=== PATIENT | male | born 1955 | race Asian ===

== ENCOUNTER → 2017-06-14 07:48 | Outpatient (CLI) | payer MEDICARE, SELFPAY ==
--- NOTE | 2017-06-15 10:46 | PFTCOMP ---
COMPLETE PULMONARY FUNCTION TEST INTERPRETATION Brief HPI: Patient is a 61 year old Black [male], currently under the care of Dr. Lucas, who presents to [facility] for complete pulmonary function tests secondary to diagnosis of high-risk med use. Respiratory therapist reports good effort and reproducible results. Interpretation: Forced expiration spirometry shows [no] large airways obstructive ventilatory defect with an FEV1 of 52 % predicted. There is no significant bronchodilator response by ATS criteria. Spirograms are of good quality and plateau [normally]. The respiratory flow volume loop shows [a normal pattern]. Lung volumes by body plethysmography show [a decreased] total lung capacity at 3.34 L, 61 % predicted. [All other lung volumes are reduced symmetrically.] Diffusion capacity by carbon monoxide is [decreased] at 60 % predicted. The airway resistance is [normal]. [Compared to previous pulmonary function tests from] 05/30/2016, [there has been] [a significant change in] TLC, RV and DLCO. Impression: Moderate restrictive ventilatory defect with a symmetric reduction diffusing capacity. There has been worsening in total lung capacity and DLCO compared to previous. Given cardiac history, evaluation for pleural effusion should be considered.
--- NOTE | 2017-06-15 10:49 | PFTCOMP_ITS ---
COMPLETE PULMONARY FUNCTION TEST INTERPRETATION Brief HPI: Patient is a 61 year old Black [male], currently under the care of Dr. Lucas , who presents to [facility] for complete pulmonary function tests secondary to diagnosis of high-risk med use. Respiratory therapist reports good effort and reproducible results. Interpretation: Forced expiration spirometry shows [no] large airways obstructive ventilatory defect with an FEV1 of 52 % predicted. There is no significant bronchodilator response by ATS criteria. Spirograms are of good quality and plateau [normally] . The respiratory flow volume loop shows [a normal pattern]. Lung volumes by body plethysmography show [a decreased] total lung capacity at 3.34 L, 61 % predicted. [All other lung volumes are reduced symmetrically.] Diffusion capacity by carbon monoxide is [decreased] at 60 % predicted. The airway resistance is [normal]. [Compared to previous pulmonary function tests from] 05/30/2016, [there has been ] [a significant change in] TLC, RV and DLCO. Impression: Moderate restrictive ventilatory defect with a symmetric reduction diffusing capacity. There has been worsening in total lung capacity and DLCO compared to previous. Given cardiac history, evaluation for pleural effusion should be considered.
== END ==
PROVIDERS: Family Provider Family Medicine; PCP Family Medicine; Visit Provider Internal Medicine Cardiovascular Disease
DX: Z79.899 Other long term (current) drug therapy (principal)
CPT/HCPCS: 94060; 94726; 94729

== ENCOUNTER → 2017-06-20 10:26 | Outpatient (CLI) | payer MEDICARE, SELFPAY ==
[2017-06-20 12:57] LABS: T4 Total, Thyroxin 13.2 ug/dL (4.5-12.1); Thyroid Stim Hormone (TSH) 0.52 uIU/mL (0.358-3.74)
== END ==
PROVIDERS: Family Provider Family Medicine; PCP Family Medicine; Visit Provider Internal Medicine Cardiovascular Disease
DX: Z79.899 Other long term (current) drug therapy (principal)
CPT/HCPCS: 36415; 84436; 84443

== ENCOUNTER → 2018-02-28 14:17 | Outpatient (CLI) | payer MEDICARE, SELFPAY ==
[2018-02-28 15:42] LABS: Absolute Lymphocyte Count 2.07 X10^3/ul (0.83-4.51); Absolute Neutrophil Count 3.7 X10^3/uL (2.0-7.7); Basophil# 0.04 X10^3/uL; Basophil% 0.6 % (0-1); Eosinophil# 0.31 X10^3/uL; Eosinophils% 4.7 % (0-5); Hematocrit 49.3 % (40-54); Hemoglobin 15.4 g/dl (13.0-16.5); Lymphocyte # 2.07 X10^3/ul (4.0); Lymphocyte % 31.3 % (19-41); Mean Corp Hgb Conc 31.2 g/gl (32-36); Mean Corpuscular Volume 79.9 fL (80-94); Mean Platelet Vol. 12.4 fl (6.2-12.0); Monocyte# 0.48 X10^3/uL; Monocyte% 7.3 % (0-10); Neutrophil # 3.69 X10^3/uL (2.7-7.7); Neutrophil % 55.8 % (47-70); Platelet Count 188 K/mm3 (150-450); RBC Distribution Width CV 15.6 % (11.6-14.6); RBC Distribution Width SD 45.6 fl (35.1-43.9); Red Blood Count 6.17 M/mm3 (4.6-6.2); White Blood Count 6.6 K/mm3 (4.4-11.0)
[2018-02-28 15:56] LABS: POSITIVE COUNT NO; POSITIVE DIFFERENTIAL NO; POSITIVE MORPHOLOGY NO
[2018-02-28 16:12] LABS: AST(SGOT) 42 U/L (15-37); Alanine Aminotransfer ALT/SGPT 63 U/L (16-61); Albumin, Serum 3.8 g/dL (3.2-5.0); Alkaline Phosphatase 67 U/L (45-117); Anion Gap 10 (5-15); BUN 33 mg/dL (7-18); BUN/Creat Ratio 17.3 RATIO (10-20); Chloride 102 mmol/L (98-107); Creatinine, Serum 1.91 mg/dL (0.70-1.30); EST Glomerular Filtration Rate 38 mL/min (>60); Est Glom Filt Rate - Afr Amer 46 mL/min (>60); Globulin 3.9 g/dL (2.2-4.2); Glucose 77 mg/dL (74-106); Potassium 4.2 mmol/L (3.5-5.1); Protein, Total 7.7 g/dL (6.4-8.2); Sodium Level 144 mmol/L (136-145); Thyroid Stim Hormone (TSH) 0.51 uIU/mL (0.358-3.74)
[2018-02-28 16:25] LABS: Hemoglobin A1c 6.5 % (4.2-6.3)
[2018-02-28 16:26] LABS: Microalbumin:Creatinine Ratio 754.5 mg/g CRE (<30 mg/g CRE)
== END ==
PROVIDERS: Family Provider Family Medicine; PCP Family Medicine; Visit Provider Family Medicine
DX: E11.51 Type 2 diabetes mellitus with diabetic peripheral angiopathy without gangrene (principal)
CPT/HCPCS: 36415; 80053; 82043; 82570; 83036; 84443; 85025

== ENCOUNTER → 2018-05-06 12:00 | Outpatient (CLI) | payer MEDICARE, SELFPAY ==
[2017-11-30 13:30] VITALS: BMI 45.8
--- NOTE | 2018-05-06 12:05 | RAD_ITS ---
STUDY: X-RAY CHEST REASON FOR EXAM: Male, 62 years old. Right lower lobe rales, flulike symptoms TECHNIQUE: PA and lateral views of the chest. COMPARISON: 05/30/2016 FINDINGS: Single-chamber cardiac conduction device is stable. Sternal wires and mediastinal surgical clips compatible with prior CABG. The lungs are clear and expanded. There is no demonstrated pleural abnormality. There is moderate cardiac enlargement. Normal mediastinum and delio. There is prominence of the pulmonary hilar arteries and peripheral pulmonary arteries, consistent with congestive heart failure (CHF). There is atherosclerotic calcification of the aortic arch with tortuosity. Normal visualized thoracic spine. Normal visualized ribs, clavicles, and shoulders. There is no demonstrated abnormality of the visualized soft tissue structures of the upper abdomen. RAD/Chest PA and Lateral IMPRESSION: 1. No airspace consolidation. 2. Cardiomegaly with chronic vascular congestion/CHF. Stable. Electronically Signed: Ziyad Calvo MD at 13:58 EST , Service support ,
== END ==
PROVIDERS: Family Provider Family Medicine; PCP Family Medicine; Referring Provider Family Medicine; Visit Provider Family Medicine
DX: J18.9 Pneumonia, unspecified organism (principal); I51.7 Cardiomegaly; I50.9 Heart failure, unspecified
CPT/HCPCS: 71046

== ENCOUNTER → 2018-05-08 09:39 | Outpatient (CLI) | payer MEDICARE, SELFPAY ==
[2017-11-30 13:30] VITALS: BMI 45.8
--- NOTE | 2018-05-08 09:43 | US_ITS ---
STUDY: SUPERFICIAL ULTRASOUND - RIGHT MID ANDERSON. REASON FOR EXAM: Male, 62 years old. Palpable abnormality most likely a hematoma. TECHNIQUE: A superficial ultrasound was performed with real-time and static rollins-scale imaging. COMPARISON: None. FINDINGS: The palpable abnormality corresponds to a 4.7 cm x 5.9 cm x 2.2 cm complex cystic structure in the mid anterior aspect of the tibia. This most likely represents a hematoma. US/Ext Non Vasc Limited/Soft Tiss IMPRESSION: The palpable abnormality corresponds to a 4.7 cm x 5.9 cm x 2.2 cm complex cystic abnormality most likely representing a hematoma. Electronically Signed: Frank Harrington MD at 13:47 EST Tel [phone], Service support ,
== END ==
PROVIDERS: Family Provider Family Medicine; PCP Family Medicine; Referring Provider Family Medicine; Visit Provider Family Medicine
DX: M79.89 Other specified soft tissue disorders (principal)
CPT/HCPCS: 76882

== ENCOUNTER → 2018-07-10 14:28 | Outpatient (CLI) | payer MEDICARE, SELFPAY ==
[2018-06-04 13:04] VITALS: BMI 44.6
--- NOTE | 2018-07-10 14:31 | RAD_ITS ---
STUDY: X-RAY CHEST REASON FOR EXAM: Male, 62 years old. Community-acquired pneumonia. TECHNIQUE: PA and lateral chest COMPARISON: 05/06/2018. Chest x-ray 05/30/2016, 05/12/2015. FINDINGS: Persistent cardiomegaly. Stable. Left pectoral AICD, median sternotomy and CABG. Hazy opacities in left lower lobe are likely secondary to a combination of cardiomegaly and normal variant pericardial fat pad and have been present since imaging of 2015. There is no defined acute pulmonary infiltrate. No acute osseous or upper abdominal process is evident. RAD/Chest PA and Lateral IMPRESSION: Similar features of the chest are seen as far back as at least May 2015. No acute infiltrate is suspected. If the patient is persistently symptomatic a follow-up CT chest would be appropriate. Electronically Signed: Edgar Dow MD at 18:43 EST Tel , Service support ,
[2018-07-10 15:45] LABS: Absolute Lymphocyte Count 1.39 X10^3/ul (0.83-4.51); Absolute Neutrophil Count 3.7 X10^3/uL (2.0-7.7); Basophil# 0.03 X10^3/uL; Basophil% 0.5 % (0-1); Eosinophil# 0.13 X10^3/uL; Eosinophils% 2.2 % (0-5); Hematocrit 48.7 % (40-54); Hemoglobin 14.7 g/dl (13.0-16.5); Lymphocyte # 1.39 X10^3/ul (4.0); Lymphocyte % 23.2 % (19-41); Mean Corp Hgb Conc 30.2 g/gl (32-36); Mean Corpuscular Hgb 24.6 pg (27.0-32.0); Mean Corpuscular Volume 81.4 fL (80-94); Mean Platelet Vol. 12.1 fl (6.2-12.0); Monocyte# 0.75 X10^3/uL; Monocyte% 12.5 % (0-10); Neutrophil # 3.68 X10^3/uL (2.7-7.7); Neutrophil % 61.4 % (47-70); Platelet Count 194 K/mm3 (150-450); RBC Distribution Width CV 15.2 % (11.6-14.6); RBC Distribution Width SD 45.2 fl (35.1-43.9); Red Blood Count 5.98 M/mm3 (4.6-6.2)
[2018-07-10 15:47] LABS: POSITIVE COUNT NO; POSITIVE DIFFERENTIAL NO; POSITIVE MORPHOLOGY NO
[2018-07-10 16:07] LABS: BNP,B-Type NATRIURETIC PEPTIDE 152.6 pg/mL (0-100)
[2018-07-10 16:14] LABS: AST(SGOT) 36 U/L (15-37); Alanine Aminotransfer ALT/SGPT 49 U/L (16-61); Albumin, Serum 3.8 g/dL (3.2-5.0); Alkaline Phosphatase 76 U/L (45-117); Anion Gap 8 (5-15); BUN 23 mg/dL (7-18); Calcium,Total 8.7 mg/dL (8.5-10.1); Chloride 98 mmol/L (98-107); Creatinine, Serum 1.53 mg/dL (0.70-1.30); EST Glomerular Filtration Rate 49 mL/min (>60); Est Glom Filt Rate - Afr Amer 60 mL/min (>60); Globulin 3.9 g/dL (2.2-4.2); Glucose 77 mg/dL (74-106); Potassium 3.5 mmol/L (3.5-5.1); Protein, Total 7.7 g/dL (6.4-8.2); Sodium Level 140 mmol/L (136-145)
[2018-07-13 20:06] LABS: Influenza A 1:16 (Neg:<1:8)
== END ==
PROVIDERS: Family Provider Family Medicine; PCP Family Medicine; Referring Provider Family Medicine; Visit Provider Family Medicine
DX: J11.00 Influenza due to unidentified influenza virus with unspecified type of pneumonia (principal); I10 Essential (primary) hypertension
CPT/HCPCS: 36415; 71046; 80053; 83880; 85025; 86141; 86710

== ENCOUNTER → 2018-07-19 13:45 | Outpatient (CLI) | payer MEDICARE, SELFPAY ==
[2018-06-04 13:04] VITALS: BMI 44.6
--- NOTE | 2018-07-19 13:51 | CT_ITS ---
STUDY: CT CHEST WITHOUT CONTRAST REASON FOR EXAM: Male, 62 years old. Persistent cough and rales for 4 weeks. RADIATION DOSAGE (If Supplied By Facility): CTDIvol = ( 20.70 ) mGy, DLP = ( 738.90 ) mGycm TECHNIQUE: Transaxial imaging was performed without the administration of intravenous contrast material. Individualized dose optimization techniques were used for this CT. COMPARISON: None. FINDINGS: There is diffuse prominence of the pulmonary vasculature. There are mild atelectatic changes in the lingula and left lower lobe. No focal infiltrate is seen. There may be trace of left pleural effusion. Sternal cerclage wires and vascular clips are present from a prior sternotomy and coronary artery bypass graft procedure (CABG). The heart is prominent in size. There are coronary calcifications. There is no evidence of pericardial effusion. There are few small normal size nodes in the anterior mediastinum and aortopulmonic window. Few small nodes are also seen in the right hilar region. There is no definite adenopathy. Normal unenhanced pulmonary arteries. There is atherosclerotic calcification of the aortic arch with tortuosity and elongation of the aortic arch and descending thoracic aorta. There are multi-level degenerative changes of the thoracic spine. There is no demonstrated abnormality of the visualized upper abdomen. CT/Chest without Contrast IMPRESSION: 1. Diffuse prominence of the pulmonary vasculature consistent with pulmonary venous congestion. 2. Mild atelectatic changes in the left lower lung. 3. No focal infiltrate is seen. 4. Trace of left pleural effusion. 5. Status post CABG. Electronically Signed: Donald Robles MD at 13:54 EDT Tel , Service support ,
== END ==
PROVIDERS: Family Provider Family Medicine; PCP Family Medicine; Referring Provider Family Medicine; Visit Provider Family Medicine
DX: R09.89 Other specified symptoms and signs involving the circulatory and respiratory systems (principal)
CPT/HCPCS: 71250

== ENCOUNTER → 2018-10-16 13:56 | Outpatient (CLI) | payer MEDICARE, SELFPAY ==
[2018-06-04 13:04] VITALS: BMI 44.6
[2018-10-16 15:54] LABS: PTHIN 170.9 pg/mL (18.4-80.1)
[2018-10-16 15:56] LABS: ALB/GLOB Ratio 1.2 RATIO (0.9-2.4); AST(SGOT) 34 U/L (15-37); Alanine Aminotransfer ALT/SGPT 42 U/L (16-61); Albumin, Serum 3.8 g/dL (3.2-5.0); Alkaline Phosphatase 71 U/L (45-117); Anion Gap 3 (5-15); BUN 36 mg/dL (7-18); BUN/Creat Ratio 23.4 RATIO (10-20); Calcium,Total 8.6 mg/dL (8.5-10.1); Chloride 102 mmol/L (98-107); Creatinine, Serum 1.54 mg/dL (0.70-1.30); EST Glomerular Filtration Rate 49 mL/min (>60); Est Glom Filt Rate - Afr Amer 59 mL/min (>60); Globulin 3.3 g/dL (2.2-4.2); Glucose 93 mg/dL (74-106); Magnesium 1.8 mg/dL (1.6-2.6); Protein, Total 7.1 g/dL (6.4-8.2); Sodium Level 140 mmol/L (136-145); Thyroid Stim Hormone (TSH) 0.15 uIU/mL (0.358-3.74)
[2018-10-16 16:09] LABS: Vitamin D,25 Hydroxy 12.9 ng/mL (29.95-100.01)
== END ==
PROVIDERS: Family Provider Family Medicine; PCP Family Medicine; Referring Provider Family Medicine; Visit Provider Family Medicine
DX: N18.3 Chronic kidney disease, stage 3 (moderate) (principal); E11.51 Type 2 diabetes mellitus with diabetic peripheral angiopathy without gangrene
CPT/HCPCS: 36415; 80053; 82306; 83735; 83970; 84443; 84550

== ENCOUNTER → 2019-01-22 14:17 | Outpatient (CLI) | payer MEDICARE, SELFPAY ==
[2019-01-22 12:59] VITALS: BMI 45.3
[2019-01-22 17:11] LABS: Absolute Lymphocyte Count 1.98 X10^3/uL (0.83-4.51); Absolute Neutrophil Count 4.2 X10^3/uL (2.0-7.7); Basophil# 0.06 X10^3/uL; Basophil% 0.8 % (0-1); Eosinophils% 2.8 % (0-5); Hematocrit 50.2 % (40-54); Hemoglobin 15.1 g/dL (13.0-16.5); Lymphocyte # 1.98 X10^3/ul (4.0); Lymphocyte % 27.6 % (19-41); Mean Corp Hgb Conc 30.1 g/dL (32-36); Mean Corpuscular Hgb 24.8 pg (27.0-32.0); Mean Corpuscular Volume 82.3 fL (80-94); Mean Platelet Vol. 11.6 fl (6.2-12.0); Monocyte# 0.67 X10^3/uL; Monocyte% 9.3 % (0-10); NRBC Flagged by Analyzer 0 % (0-5); Neutrophil # 4.23 X10^3/uL (2.7-7.7); Neutrophil % 58.9 % (47-70); Platelet Count 196 K/mm3 (150-450); RBC Distribution Width CV 15.9 % (11.6-14.6); RBC Distribution Width SD 45.9 fl (35.1-43.9); White Blood Count 7.2 K/mm3 (4.4-11.0)
[2019-01-22 17:31] LABS: Hemoglobin A1c 7.6 % (4.2-6.3)
[2019-01-22 17:36] LABS: AST(SGOT) 59 U/L (15-37); Alanine Aminotransfer ALT/SGPT 70 U/L (16-61); Albumin, Serum 3.7 g/dL (3.2-5.0); Alkaline Phosphatase 67 U/L (45-117); Anion Gap 8 (5-15); BUN 36 mg/dL (7-18); BUN/Creat Ratio 22.8 RATIO (10-20); Chloride 100 mmol/L (98-107); Creatinine, Serum 1.58 mg/dL (0.70-1.30); EST Glomerular Filtration Rate 48 mL/min (>60); Est Glom Filt Rate - Afr Amer 57 mL/min (>60); Free T3 3.5 pg/mL (2.18-3.98); Globulin 3.8 g/dL (2.2-4.2); Glucose 128 mg/dL (74-106); Potassium 4.1 mmol/L (3.5-5.1); Protein, Total 7.5 g/dL (6.4-8.2); Sodium Level 142 mmol/L (136-145)
[2019-01-22 17:52] LABS: PTHIN 140.5 pg/mL (18.4-80.1)
[2019-01-22 18:06] LABS: T4 Free Direct 1.45 ng/dL (0.76-1.46); Thyroid Stim Hormone (TSH) 1.36 uIU/mL (0.358-3.74)
== END ==
PROVIDERS: Family Provider Family Medicine; PCP Family Medicine; Visit Provider Internal Medicine Cardiovascular Disease
DX: I10 Essential (primary) hypertension (principal); Z79.899 Other long term (current) drug therapy; I89.0 Lymphedema, not elsewhere classified; E11.51 Type 2 diabetes mellitus with diabetic peripheral angiopathy without gangrene; N25.81 Secondary hyperparathyroidism of renal origin; E55.9 Vitamin D deficiency, unspecified
CPT/HCPCS: 36415; 80053; 82306; 83036; 83970; 84439; 84443; 84481; 85025

== ENCOUNTER → 2019-05-12 17:58 | Outpatient (CLI) | payer MEDICARE, SELFPAY ==
[2019-01-22 12:59] VITALS: BMI 45.3
== END ==
PROVIDERS: Family Provider Family Medicine; PCP Family Medicine; Referring Provider Nurse Practitioner Adult Health; Visit Provider Nurse Practitioner Adult Health
DX: L03.90 Cellulitis, unspecified (principal)
CPT/HCPCS: 87070; 87077; 87186; 87205

== ENCOUNTER 2019-06-03 13:00 | Outpatient (RCR) | payer MEDICARE, SELFPAY ==
[2019-01-22 12:59] VITALS: BMI 45.3
[2019-05-27 14:43] VITALS: BP 128/77; PULSE 83; RESP 16; TEMP 36.3; BMI 44.4
--- NOTE | 2019-05-28 09:10 | HP.PCM_ITS ---
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 Current Visit: Yes Code(s): B74.9 - Filariasis, unspecified (2) Bilateral lower extremity edema Status: Chronic Current Visit: Yes Code(s): R60.0 - Localized edema (3) PVD (peripheral vascular disease) Status: Chronic Current Visit: Yes Code(s): I73.9 - Peripheral vascular disease, unspecified (4) Morbid obesity with BMI of 40.0-44.9, adult Status: Chronic Current Visit: Yes Code(s): E66.01 - Morbid (severe) obesity due to excess calories; Z68.41 - Body mass index (BMI) 40.0-44.9, adult (5) Chronic systolic congestive heart failure Status: Chronic Current Visit: No Code(s): I50.22 - Chronic systolic (congestive) heart failure (6) Pulmonary hypertension Status: Chronic Current Visit: No Code(s): I27.20 - Pulmonary hypertension, unspecified (7) Essential hypertension Status: Chronic Current Visit: No Code(s): I10 - Essential (primary) hypertension (8) Ischemic cardiomyopathy Status: Chronic Current Visit: No Code(s): I25.5 - Ischemic cardiomyopathy (9) Pure hypercholesterolemia Status: Chronic Current Visit: No Code(s): E78.00 - Pure hypercholesterolemia, unspecified History of Present Illness Date of Service: 05/27/19 Chief Complaint: swelling and wounds of both legs History of Wound: Patient is a pleasant 63-year-old male who goes by the name of Marilynn, who presents today with complaint of swelling to bilateral lower extremities, and wounds to bilateral shins. There is a mild language barrier, and no translation is available at today's appointment given a miscommunication about the patient's appointment date and time. The patient reports that he has had swelling in his bilateral lower extremities for many years, as well as cobblestone?appearing lymphedema. He is [place] from [facility], and reports moving to the around 1988. He reports his swelling has gotten worse in the last few weeks. He has had weeping from his left lower extremity. He also developed a scab on his right anterior lower leg. He has been using triple antibiotic ointment to both legs, and wrapping with Kerlix. He has not been using any compression. Patient has a PMH significant for type 2 diabetes mellitus (A1c in 01/2019 was 7.6%), morbid obesity, CHF, pulmonary hypertension, SD, ischemic cardiomyopathy, and hyperlipidemia. He is currently managed by Dr. Sandoval at [facility] as his PCP. He is ambulatory with a cane. He does report living with family at home, who can aid in his care as needed. 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 (Chronic) Bilateral lower extremity edema (Chronic) PVD (peripheral vascular disease) (Chronic) Essential hypertension (Chronic) Pure hypercholesterolemia (Chronic) Atherosclerosis of coronary artery bypass graft without angina pectoris (Chronic) CABG x6 ; Internal Mammary to Anterior Descending, SVG to diag branch of the Anterior descending,SVG to the lateral & posteriorlateral CX, SVG to Posterior Descending and continuation branches of the RCA 02/27/03 Chronic systolic congestive heart failure (Chronic) Ischemic cardiomyopathy (Chronic) Pulmonary hypertension (Chronic) Presence of cardiac defibrillator (Chronic ~08/2004) Surgical History: coronary bypass surgery Allergies/Adverse Reactions: Allergies No Known Allergies Allergy (Verified 01/22/19 13:00) Home Medications: Ambulatory Orders Medication Instructions Recorded Aspirin [Aspirin, Baby] 81 mg PO DAILY@0800 03/10/14 allopurinol 300 mg tablet 300 mg PO QDAY 05/22/17 colchicine 0.6 mg capsule 0.6 mg PO QDAY cap 05/22/17 metformin 500 mg tablet 1,000 mg PO BIDCM tab 05/22/17 acetaminophen 500 mg tablet 500 mg PO BID tab 01/22/19 glimepiride 2 mg tablet 1 mg PO QAM tab 01/22/19 tiotropium 2.5 mcg-olodaterol 2.5 2 puff INHALATION DAILY 01/22/19 mcg/actuation mist for inhalation hydrochlorothiazide 25 mg tablet 25 mg PO DAILY #90 tab 03/13/19 potassium chloride 20 mEq 20 meq PO BID #180 tab 03/13/19 tablet,extended release(part/cryst) simvastatin 20 mg tablet 20 mg PO QHS #90 tab 03/13/19 amiodarone 200 mg tablet 100 mg PO QDAY #45 tab 03/14/19 amlodipine 2.5 mg tablet 2.5 mg PO DAILY #90 tab 03/14/19 furosemide 40 mg tablet 40 mg PO BID #180 tab 03/14/19 isosorbide mononitrate 30 mg 30 mg PO QAM #90 tab 03/14/19 tablet,extended release 24 hr lisinopril 20 mg tablet 20 mg PO BID #180 tab 03/14/19 metoprolol tartrate 100 mg tablet 100 mg PO BID #180 tab 03/14/19 - Family History Maternal Family History: Family History (Last Reviewed 01/22/19 @ 13:03 by Rebecca Juan) Mother Hypertension Sister Hypertension No pertinent history Smoking Status: Former smoker Review of Systems Constitutional: Denies: Anorexia, Chills, Fever, Night Sweats Eyes: Denies: Pain, Vision Change HEENT: Denies: Difficulty Hearing, Difficulty Swallowing Cardiovascular: Reports: Edema. Denies: Chest Pain Respiratory: Denies: Cough, Shortness of Breath, Wheezing Gastrointestinal: Denies: Abdominal Pain, Constipation, Diarrhea, Nausea, Vomiting Genitourinary: Denies: Dysuria, Hematuria Musculoskeletal: Reports: Leg Pain - bilaterally tender to palpation Skin: Reports: Skin Changes - Increase in swelling in bilateral lower extremities, weeping edema from left lower extremity Neurological: Denies: Double vision, Slurred speech Endocrine: Denies: Heat/ Cold Intolerance, Polydipsia, Polyuria Hematologic/ Lymphatic: Denies: Easy Bruising, Easy Bleeding - Physical Exam Vital Signs Temp Pulse Resp BP 97.3 F L 83 16 128/77 H 05/27/19 14:43 05/27/19 14:43 05/27/19 14:43 05/27/19 14:43 General: Alert, Oriented x3, Cooperative, No apparent distress HEENT: Atraumatic, EOMI, Normocephalic Oral: Moist Mucosa Neck: Supple, No JVD, Trachea Midline Lungs: Clear to auscultation, Normal air movement, No rhonchi, No wheeze, No rales Cardiovascular: Regular rate, Regular Rhythm Abdomen: Bowel Sounds Present, Soft, Non Tender, Obese Extremities: No clubbing, No cyanosis, Capillary Refill Less than 3 Seconds, Diminished Peripheral Pulses, Edema - Nonpitting, bilateral lower extremity l ymphedema with cobblestone?appearance., Tenderness - Bilateral lower extremities tender to palpation Skin: - - Large amount of dry, scaly devitalized tissue removed from right anterior lower extremity; no open wound or ulceration beneath. Left anterior lower extremity appears macerated, but no open wounds or ulcerations present. No active weeping from either lower extremity. No increased warmth, foul odor, or purulent drainage from either lower extremity. Wound Measurements and Assessment WC - Nurse 1 - General Ulcer Measurement Start: 05/27/19 14:32 Freq: Status: Active Protocol: Activity Type Activity Date Activity User E-Sign Co-Sign Detail Recorded Client Recorded Date Recorded By Document 05/27/19 14:43 [id number] 05/27/19 15:02 CRISTOBAL 05/27/19 14:43 Wound Center Nurse 1 [Ulcer Assessment] 2-left monaco -Combined with other wound No -Current Size (cm) - Length 3.3 -Current Size (cm) - Width 5.0 -Current Size (cm) - Depth 0.1 -Total Square Cm 16.50 -Photo Taken Yes -Epithelialization Small 1-33% -Tunneling No -Undermining/Tunneling No -Circular Undermining No -Classification - Masterson Grading ( Grade 1 Diabetic Ulcer) -Exudate Amt Small -Exudate Type Serosanguineous -Wound Margin Flat & Intact -Granulation Amt None Present (0 %) -Slough/Fibrin Yes -Necrosis Amt Large (67-100%) -Necrotic Tissue Type Adherent Slough -Structure Exposed N/A -Texture (Nicolle-wound Skin Appearance) Assessed, Localized Edema -Moisture (Nicolle-wound Skin Appearance Assessed,Dry/ ) Scaly -Color (Nciolle-wound Skin Appearance) Assessed, Hemosiderin Staining -Temperature (Nicolle-wound Skin No Abnormality Appearance) (Pt Warm) -Tenderness on Palpation (Nicolle-wound No Skin Appearance) -Ulcer Cleansing Rinsed/ Irrigated with Saline -Foul Odor after Cleansing No -Anesthetic Used 4% Lidocaine Solution 1-right monaco -Combined with other wound No -Current Size (cm) - Length 4 -Current Size (cm) - Width 4 -Current Size (cm) - Depth 0.1 -Total Square Cm 16 -Photo Taken Yes -Epithelialization Medium 34-66% -Tunneling No -Undermining/Tunneling No -Circular Undermining No -Classification - Masterson Grading ( Grade 1 Diabetic Ulcer) -Exudate Amt Small -Exudate Type Serosanguineous -Wound Margin Flat & Intact -Granulation Amt None Present (0 %) -Slough/Fibrin Yes -Necrosis Amt Large (67-100%) -Necrotic Tissue Type Adherent Slough -Structure Exposed N/A -Texture (Nicolle-wound Skin Appearance) Assessed, Localized Edema -Moisture (Nicolle-wound Skin Appearance Assessed,Dry/ ) Scaly -Color (Nicolle-wound Skin Appearance) Assessed, Hemosiderin Staining -Temperature (Nicolle-wound Skin No Abnormality Appearance) (Pt Warm) -Tenderness on Palpation (Nicolle-wound No Skin Appearance) -Ulcer Cleansing Rinsed/ Irrigated with Saline -Foul Odor after Cleansing No -Anesthetic Used 4% Lidocaine Solution [Edema Assessment] -Lower Limb Edema Present Yes -Right Calf (cm) 48 -Right Ankle (cm) 33.2 -Left Calf (cm) 49.2 -Left Ankle (cm) 35.0 WC - Nurse 2 - General Ulcer CM Notes Start: 05/27/19 14:32 Freq: Status: Active Protocol: Activity Type Activity Date Activity User E-Sign Co-Sign Detail Recorded Client Recorded Date Recorded By Document 05/27/19 15:39 DV [id number] 05/27/19 15:47 DV 05/27/19 15:39 Wound Center Nurse 2 [Procedure/Treatment] 2-left monaco -Time 15:44 -Correct Patient Yes -Correct Side, Site, Position Yes -Correct Procedure No -Procedure Performed No -Wound/Ulcer Outcome Not Healed 1-right monaco -Time 15:44 -Correct Patient Yes -Correct Side, Site, Position Yes -Correct Procedure No -Procedure Performed No -Wound/Ulcer Outcome Not Healed [See Physician Procedure note for Specifics] Pain Scale: 0-10 Numeric [Pain] -Is Patient Pain Free? Yes Musculoskeletal: Tenderness - Tenderness to palpation of bilateral lower extremities. Neurological: - - Ambulates with cane Psych/Mental Status: Normal Affect, Appropriate Debridement Note Post-Debridement Measurements/Treatment - Nurse 2 - General Ulcer CM Notes Start: 05/27/19 14:32 Freq: Status: Active Protocol: Activity Type Activity Date Activity User E-Sign Co-Sign Detail Recorded Client Recorded Date Recorded By Document 05/27/19 15:39 DV [id number] 05/27/19 15:47 DV 05/27/19 15:39 Wound Center Nurse 2 2-left monaco -Time 15:44 -Correct Patient Yes -Correct Side, Site, Position Yes -Correct Procedure No -Procedure Performed No -Wound/Ulcer Outcome Not Healed 1-right monaco -Time 15:44 -Correct Patient Yes -Correct Side, Site, Position Yes -Correct Procedure No -Procedure Performed No -Wound/Ulcer Outcome Not Healed Pain Scale: 0-10 Numeric Is Patient Pain Free? 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 Bilateral lower extremity edema, chronic. PVD, chronic. Morbid obesity, chronic. Differential diagnoses include: Elephantiasis nostras verrucosa Plan: No debridement performed today in clinic, due to lack of open wounds or ulcerations. Adaptic applied to right anterior lower extremity, where dry, scaly and devitalized tissue was gently removed. Aquacel extra applied to area of maceration on left anterior lower extremity. At home wound-care instructions: Patient instructed to change these dressings daily. May remove these dressings to shower, and replace with a clean dressing following shower, after patting skin thoroughly dry. Compression: Will await results of vascular studies to determine appropriate compression. Off-loading: Keep feet elevated as much as possible, at or above waist level. Avoid prolonged standing or dangling of legs. Diet: Patient encouraged to increase protein while taking caution to avoid high carbohydrate and/or sugar intake. Labs/cultures/imaging: Routine baseline labwork ordered. Vascular studies ordered. Follow-up: Return to clinic in 1 week for re-evaluation. We will arrange for translation services to be available at next visit to aid in patient-provider communication. Return sooner or report to the emergency room should symptoms worsen, or new symptoms arise. Note: [employer] speech recognition vice president quality assurance software was used to create portions of this document. Sound-alike and misspelled words, as well as other vice president quality assurance errors may be contained in the documentation. Code Visit Office Visits / Consults: [id number] New
--- NOTE | 2019-06-03 13:13 | VDLE_ITS ---
Reason For Study: PVD RIGHT LEFT CFV is compressible, spontaneous, phasic, CFV is compressible, spontaneous, phasic, competent and demonstrates normal competent, and demonstrates normal augmentation. augmentation. FV is compressible, spontaneous, phasic, FV is compressible, spontaneous, phasic, competent and demonstrates normal competent and demonstrates normal augmentation. augmentation. POP V is compressible, spontaneous, phasic, POP V is compressible, spontaneous, phasic, competent and demonstrates normal competent and demonstrates normal augmentation. augmentation. T/P Trunk is compressible. T/P Trunk is compressible. PTV is compressible. PTV is compressible. RT PerV is compressible. LT PerV is compressible. GSV previously harvested. SFJ is competent and measures 0.93 x 1.02 cm. SFJ is competent and measures 0.74 x 0.80 cm. GSV proximal thigh measures 0.37 x 0.38 cm. ASV mid calf is INCOMPETENT for greater than GSV above knee is competent. 0.5 seconds and measures 0.29 x 0.30 cm. GSV at knee measures 0.29 x 0.29 cm. SSV at junction is competent and measures GSV below knee is INCOMPETENT for greater 0.46 x 0.46 cm. than 0.5 seconds. Procedure SSV at junction is competent and measures Exam performed in department. 0.29 x 0.27 cm. A preliminary report was called and/or faxed to . Interpretation Summary Deep veins of the lower extremities are bilaterally patent and compressible segmentally. There is no evidence of deep vein thrombosis on either side. Valvular competence appears intact within the proximal deep venous systems bilaterally. The right great saphenous vein is absent, having been previously harvested. The left great saphenous vein appears patent and compressible segmentally. Sapheno-femoral junctions are bilaterally competent . The left great saphenous vein appears competent above the knee. The left great saphenous vein appears incompetent below the knee. Small saphenous veins are patent and competent bilaterally. The right accessory saphenous vein in the right mid-calf is incompetent. Ordering Physician: Renee Andrew Referring Physician: Manuel Sandoval MD Performed By: Orquidea Johnston RVT
--- NOTE | 2019-06-03 13:14 | ART_ITS ---
Reason For Study: PVD Procedure A bilateral lower extremity continuous wave Doppler with analog waveform analysis,segmental pressures,and ankle brachial indexes without exercise. Left Segmental Pressures Left brachial= 125mmHg. Left posterior tibial artery = 139mmHg. Left dorsalis pedis artery = 120mmHg. Left digit = 102 mmHg. The left dorsalis pedis waveforms are triphasic. The left posterior tibial artery waveforms are triphasic. Right Segmental Pressures Right brachial= 128mmHg. Right posterior tibial artery = 141mmHg. Right dorsalis pedis artery = 139mmHg. Right digit = 100 mmHg. The right dorsalis pedis waveforms are triphasic. The right posterior tibial artery waveforms are triphasic. Indices The right ankle brachial index by the dorsalis pedis is 1.09. The right ankle brachial index by the posterior tibial artery is 1.10. The right digital-brachial index is 0.78. The left ankle brachial index by the dorsalis pedis is 0.94. The left ankle brachial index by the posterior tibial artery is 1.09. The left digital-brachial index is 0.80. Interpretation Summary Triphasic Doppler waveforms are noted at ankle level bilaterally. Pulse-volume recordings appear satisfactory at all levels bilaterally. Resting ankle-brachial indices are normal bilaterally. Digital-brachial indices are normal bilaterally. There is no evidence of significant arterial occlusive disease in the lower extremities bilaterally. Ordering Physician: Renee Andrew Referring Physician: Manuel Sandoval MD Performed By: Orquidea Johnston RVT
[2019-06-03 14:01] LABS: Erythrocyte Sedimentation Rate 27 mm/hr (0-20)
[2019-06-03 14:04] LABS: Hematocrit 47.2 % (40-54); Hemoglobin 13.7 g/dL (13.0-16.5); Mean Corpuscular Hgb 23.7 pg (27.0-32.0); Mean Corpuscular Volume 81.8 fL (80-94); Mean Platelet Vol. 12.1 fl (6.2-12.0); Platelet Count 211 K/mm3 (150-450); RBC Distribution Width CV 15.7 % (11.6-14.6); RBC Distribution Width SD 46.1 fl (35.1-43.9); Red Blood Count 5.77 M/mm3 (4.6-6.2); White Blood Count 8.1 K/mm3 (4.4-11.0)
[2019-06-03 14:11] LABS: Hemoglobin A1c 6.9 % (4.2-6.3)
[2019-06-03 14:29] LABS: ALB/GLOB Ratio 0.9 RATIO (0.9-2.4); AST(SGOT) 51 U/L (15-37); Alanine Aminotransfer ALT/SGPT 56 U/L (16-61); Albumin, Serum 3.5 g/dL (3.2-5.0); Alkaline Phosphatase 64 U/L (45-117); Anion Gap 2 (5-15); BUN 30 mg/dL (7-18); BUN/Creat Ratio 14.3 RATIO (10-20); Calcium,Total 8.9 mg/dL (8.5-10.1); Chloride 103 mmol/L (98-107); EST Glomerular Filtration Rate 34 mL/min (>60); Est Glom Filt Rate - Afr Amer 41 mL/min (>60); Estimated Creatinine Clearance 26.98 ml/min; Globulin 3.8 g/dL (2.2-4.2); Glucose 106 mg/dL (74-106); Potassium 3.8 mmol/L (3.5-5.1); Prealbumin 30.2 mg/dL (20.0-40.0); Protein, Total 7.3 g/dL (6.4-8.2); Sodium Level 139 mmol/L (136-145)
[2019-06-03 15:08] VITALS: BP 120/66; PULSE 86; RESP 16; TEMP 36.3; BMI 44.4
--- NOTE | 2019-06-03 17:11 | PCM.WC.PN ---
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 Status: Suspected Current Visit: Yes Code(s): B74.9 - Filariasis, unspecified (3) Lymphedema Status: Chronic Current Visit: Yes Code(s): I89.0 - Lymphedema, not elsewhere classified (4) Bilateral lower extremity edema Status: Chronic Current Visit: Yes Code(s): R60.0 - Localized edema (5) PVD (peripheral vascular disease) Status: Chronic Current Visit: Yes Code(s): I73.9 - Peripheral vascular disease, unspecified (6) Morbid obesity with BMI of 40.0-44.9, adult Status: Chronic Current Visit: Yes Code(s): E66.01 - Morbid (severe) obesity due to excess calories; Z68.41 - Body mass index (BMI) 40.0-44.9, adult (7) Chronic systolic congestive heart failure Status: Chronic Current Visit: No Code(s): I50.22 - Chronic systolic (congestive) heart failure (8) Pulmonary hypertension Status: Chronic Current Visit: No Code(s): I27.20 - Pulmonary hypertension, unspecified (9) Essential hypertension Status: Chronic Current Visit: No Code(s): I10 - Essential (primary) hypertension (10) Ischemic cardiomyopathy Status: Chronic Current Visit: No Code(s): I25.5 - Ischemic cardiomyopathy (11) Pure hypercholesterolemia Status: Chronic Current Visit: No Code(s): E78.00 - Pure hypercholesterolemia, unspecified Type of Wound Date of Service: 06/03/19 Chief Complaint: swelling and wounds of both legs History of Wound: Patient is a pleasant 63-year-old male who goes by the name of Marilynn, who presents 05/27/2019 with complaint of swelling to bilateral lower extremities, and wounds to bilateral shins. There is a mild language barrier, and no translation is available at initial appointment given a miscommunication about the patient's appointment date and time. The patient reports that he has had swelling in his bilateral lower extremities for many years, as well as cobblestone?appearing lymphedema. He is originally from [facility], and reports moving to the about 25 years ago. He reports his swelling has gotten worse in the last few weeks. He has had weeping from his left lower extremity. He also developed a scab on his right anterior lower leg. He has been using triple antibiotic ointment to both legs, and wrapping with Kerlix. He has not been using any compression. Patient has a PMH significant for type 2 diabetes mellitus (A1c in 01/2019 was 7.6%), morbid obesity, CHF, pulmonary hypertension, [place], ischemic cardiomyopathy, and hyperlipidemia. He is currently managed by Dr. Sandoval at [facility] as his PCP. He is ambulatory with a cane. He does report living with family at home, who can aid in his care as needed. Progress of Wound: Interpretation services utilized at today's visit, and elements of HPI were confirmed. Patient continues to have no open wounds of bilateral lower extremities. Lymphedema is unchanged in bilateral lower extremities. Patient has been compliant with the use of Adaptic to right lower extremity, and Aquacel extra to left anterior lower extremity. Patient continues to report weeping of serous, nonpurulent drainage from anterior left lower extremity. This area appears mildly excoriated, but no open wound or ulceration is present. Venous Doppler study completed 06/03/2019: Right great saphenous vein is absent, having been previously harvested; left great saphenous vein incompetent below the knee; right accessory saphenous vein and right mid calf is incompetent; otherwise normal venous Doppler study, see full report for further details. Arterial studies completed 06/03/2019: No evidence of significant arterial occlusive disease in bilateral lower extremities, see full report for further details. - Physical Exam Vital Signs Temp Pulse Resp BP 97.3 F L 86 16 120/66 06/03/19 15:08 06/03/19 15:08 06/03/19 15:08 06/03/19 15:08 General: Alert, Oriented x3, Cooperative, No apparent distress HEENT: Atraumatic, Normocephalic Oral: Moist Mucosa Neck: Supple, No JVD Lungs: Normal air movement Cardiovascular: Regular rate Extremities: No clubbing, No cyanosis, Capillary Refill Less than 3 Seconds, Diminished Peripheral Pulses, Edema - Nonpitting, bilateral lower extremity lymphedema with cobblestone appearance, Tenderness - Bilateral lower extremities tender to palpation Skin: Excoriated - Right anterior lower extremity remains unchanged without open wound or ulceration, skin intact. Left anterior lower extremity appears mildly excoriated, but no open wounds or ulcerations present. No active weeping from either lower extremity. No increased warmth, foul odor, or purulent drainage from either lower extremity. Wound Measurements and Assessment WC - Nurse 1 - General Ulcer Measurement Start: 05/27/19 14:32 Freq: Status: Active Protocol: Activity Type Activity Date Activity User E-Sign Co-Sign Detail Recorded Client Recorded Date Recorded By Document 06/03/19 15:08 [facility] [id number] 06/03/19 15:15 [facility] 06/03/19 15:08 Wound Center Nurse 1 [Ulcer Assessment] 2-left monaco -Combined with other wound No -Current Size (cm) - Length 1 -Current Size (cm) - Width 4 -Current Size (cm) - Depth 0.1 -Total Square Cm 4 -Photo Taken No -Epithelialization Small 1-33% -Tunneling No -Undermining/Tunneling No -Circular Undermining No -Exudate Amt Small -Exudate Type Serous -Wound Margin Flat & Intact -Granulation Amt Medium (34-66%) -Granulation Quality [place] -Slough/Fibrin Yes -Necrosis Amt Medium (34-66%) -Necrotic Tissue Type Adherent Slough -Texture (Nicolle-wound Skin Appearance) Assessed, Scarring -Moisture (Nicolle-wound Skin Appearance Assessed,Dry/ ) Scaly -Color (Nicolle-wound Skin Appearance) Assessed, Hemosiderin Staining -Temperature (Nicolle-wound Skin No Abnormality Appearance) (Pt Warm) -Tenderness on Palpation (Nicolle-wound No Skin Appearance) -Ulcer Cleansing Rinsed/ Irrigated with Saline -Foul Odor after Cleansing No -Anesthetic Used 4% Lidocaine Solution 1-right monaco -Combined with other wound No -Current Size (cm) - Length 0.1 -Current Size (cm) - Width 0.1 -Current Size (cm) - Depth 0.1 -Total Square Cm 0.01 -Epithelialization Large 67-100% -Tunneling No -Undermining/Tunneling No -Circular Undermining No -Texture (Nicolle-wound Skin Appearance) Assessed, Scarring -Moisture (Nicolle-wound Skin Appearance Assessed,Dry/ ) Scaly -Color (Nicolle-wound Skin Appearance) Assessed, Hemosiderin Staining -Temperature (Nicolle-wound Skin No Abnormality Appearance) (Pt Warm) -Tenderness on Palpation (Nicolle-wound No Skin Appearance) [Edema Assessment] -Lower Limb Edema Present Yes -Right Calf (cm) 46 -Right Ankle (cm) 33.7 -Left Calf (cm) 48 -Left Ankle (cm) 33.7 WC - Nurse 2 - General Ulcer CM Notes Start: 05/27/19 14:32 Freq: Status: Active Protocol: Activity Type Activity Date Activity User E-Sign Co-Sign Detail Recorded Client Recorded Date Recorded By Document 06/03/19 17:00 DV [id number] 06/03/19 17:02 DV 06/03/19 17:00 Wound Center Nurse 2 [Procedure/Treatment] 2-left monaco -Time 17:01 -Correct Patient Yes -Correct Side, Site, Position Yes -Correct Procedure No -Procedure Performed No -Wound/Ulcer Outcome Not Healed 1-right monaco -Time 17:01 -Correct Patient Yes -Correct Side, Site, Position Yes -Correct Procedure No -Procedure Performed No -Post Debridement Size (cm) - Length 0 -Post Debridement Size (cm) - Width 0 -Post Debridement Size (cm) - Depth 0 -Total Square Cm 0 -Wound/Ulcer Outcome Healed- Epithelialized [See Physician Procedure note for Specifics] Pain Scale: 0-10 Numeric [Pain] -Is Patient Pain Free? Yes Musculoskeletal: Tenderness - Tenderness on palpation of bilateral lower extremities. Neurological: - - Ambulates with a cane Psych/Mental Status: Normal Affect, Appropriate Debridement Note Post-Debridement Measurements/Treatment WC - Nurse 2 - General Ulcer CM Notes Start: 05/27/19 14:32 Freq: Status: Active Protocol: Activity Type Activity Date Activity User E-Sign Co-Sign Detail Recorded Client Recorded Date Recorded By Document 05/27/19 15:39 DV [id number] 05/27/19 15:47 DV Document 06/03/19 17:00 DV [id number] 06/03/19 17:02 DV 05/27/19 06/03/19 15:39 17:00 Wound Center Nurse 2 2-left monaco -Time 15:44 17:01 -Correct Patient Yes Yes -Correct Side, Site, Position Yes Yes -Correct Procedure No No -Procedure Performed No No -Wound/Ulcer Outcome Not Healed Not Healed 1-right monaco -Time 15:44 17:01 -Correct Patient Yes Yes -Correct Side, Site, Position Yes Yes -Correct Procedure No No -Procedure Performed No No -Post Debridement Size (cm) - Length 0 -Post Debridement Size (cm) - Width 0 -Post Debridement Size (cm) - Depth 0 -Total Square Cm 0 -Wound/Ulcer Outcome Not Healed Healed- Epithelialized Pain Scale: 0-10 Numeric Is Patient Pain Free? Yes Yes Assessment/Plan Active Problems (Last Reviewed 01/22/19 @ 13:03 by Rebecca Juan) Morbid obesity with BMI of 40.0-44.9, adult (Chronic) Bilateral lower extremity edema (Chronic) PVD (peripheral vascular disease) (Chronic) Lymphedema (Chronic) Excoriation of left lower leg (Chronic) Assessment: Excoriation of LLE, chronic. Lymphatic filariasis, chronic. Lymphedema, chronic. Bilateral lower extremity edema, chronic. PVD, chronic. Morbid obesity, chronic. Differential diagnoses include: Elephantiasis nostras verrucosa Plan: No debridement performed today in clinic, due to lack of open wounds or ulcerations. Adaptic and Aquacel extra applied to area of excoriation on left anterior lower extremity. At home wound-care instructions: Patient instructed to change these dressings daily. May remove these dressings to shower, and replace with a clean dressing following shower, after patting skin thoroughly dry. Compression: Double tubigrips applied today in office. Off-loading: Keep feet elevated as much as possible, at or above waist level. Avoid prolonged standing or dangling of legs. Diet: Patient encouraged to increase protein while taking caution to avoid high carbohydrate and/or sugar intake. Labs/cultures/imaging: Routine baseline labwork reviewed: ESR 27, BUN 30, creatinine 2.10, A1c 6.9%, AST 51, otherwise unremarkable, see full report for additional details. Venous Doppler study completed 06/03/2019: Right great saphenous vein is absent, having been previously harvested; left great saphenous vein incompetent below the knee; right accessory saphenous vein and right mid calf is incompetent; otherwise normal venous Doppler study, see full report for further details. Arterial studies completed 06/03/2019: No evidence of significant arterial occlusive disease in bilateral lower extremities, see full report for further details. Follow-up: Referral made to lymphedema clinic for evaluation and treatment of chronic lymphedema of bilateral lower extremities, and suspected lymphatic filariasis. Return to clinic in 2 weeks for re-evaluation. We will again arrange for translation services to be available at next visit to aid in patient-provider communication. Return sooner or report to the emergency room should symptoms worsen, or new symptoms arise. Note: [employer] speech recognition seal extrusion operator software was used to create portions of this document. Sound-alike and misspelled words, as well as other seal extrusion operator errors may be contained in the documentation. Code Visit Office Visits / Consults: [id number] OV L3 Est
== END 2019-06-06 23:59 ==
LOC: WC 13:00
PROVIDERS: Family Provider Family Medicine; PCP Family Medicine; Referring Provider Nurse Practitioner Family; Visit Provider Nurse Practitioner Family
DX: E11.622 Type 2 diabetes mellitus with other skin ulcer (principal); E11.51 Type 2 diabetes mellitus with diabetic peripheral angiopathy without gangrene; S80.812A Abrasion, left lower leg, initial encounter; X58.XXXA Exposure to other specified factors, initial encounter; R52 Pain, unspecified; M79.89 Other specified soft tissue disorders; I25.5 Ischemic cardiomyopathy; I11.0 Hypertensive heart disease with heart failure; I50.22 Chronic systolic (congestive) heart failure; I27.20 Pulmonary hypertension, unspecified; E66.01 Morbid (severe) obesity due to excess calories; Z68.41 Body mass index [BMI] 40.0-44.9, adult; B74.9 Filariasis, unspecified; R60.0 Localized edema; I25.2 Old myocardial infarction; E78.5 Hyperlipidemia, unspecified; I25.10 Atherosclerotic heart disease of native coronary artery without angina pectoris; Z95.1 Presence of aortocoronary bypass graft; Z95.810 Presence of automatic (implantable) cardiac defibrillator; Z79.899 Other long term (current) drug therapy; Z79.84 Long term (current) use of oral hypoglycemic drugs; Z79.82 Long term (current) use of aspirin; Z87.891 Personal history of nicotine dependence
CPT/HCPCS: 36415; 80053; 83036; 84134; 85027; 85652; 93923; 93970; 99213; G0463

== ENCOUNTER 2019-06-16 09:44 | Outpatient (RCR) | payer MEDICARE, SELFPAY ==
--- NOTE | 2019-06-18 12:30 | HP.OTEVAL_ITS ---
Patient's Visit Information KAUR SANDOVAL is a 63 year old M, referred to Occupational Therapy by ELAYNE Crawford, with a diagnosis of BLE lymphedema. Date of Evaluation: 06/16/19 Occupational Therapist: MARIA LUISA Escalante/Jay, CHT - Subjective Subjective: This 63 year old male was seen for OT eval with dx of LE lymphedmea . pt was referred by wound center. pt states his legs started seeping for a few day prior to getting into the wound center- pt sleeps sitting in chair but has recliner but unable to sleep in a bed. pt lives with sister, brother in law, and mother. Pt states he had compression socks in the past but he is unable to get them on. PT has been seen by this therapist in 2017 with same dx. pt would like to know what more he can do for his legs to help with fluid. - Lymphedema (Circumferential Measure) Mid-foot: right 26cm left 25cm Ankle: 31cm left 32cm Lower calf: 45.5 left 47cm Largest calf: 51cm left 50cm Below knee: 42cm left 41 cm - Lower Limb Functional Index Lower Extremity Functional Score: 38 - Goals Demonstrate a 20% reduction in edema by d/c: Yes Demonstrate adequate knowledge of self-massage by 2nd week: Yes Demonstrate adequate knowledge skin care/prec by 2nd week: Yes Demonstrate adequate knowledge therapeutic exercises by d/c: Yes Select approp compression garment w/donning/care/wear by d/c: Yes Voice need to replace compression garment every 4-6mo by dc: Yes - Rehabilitation General Assessment: pt demo with edema in BLE with skin nodules, firm tissue and dry skin. Pt demo a decrease in knowlege of LE lymphedmea mtg. Pt demo need for skilled OT services 2-3 visits to provide ed. support to assist pt in LE lymphedema mtg. Therapist ed. pt on lymphedema skin care, need of supportive compression garment to assist in fluid circulation, theraputic ex and general lymphedema circulation. Pt demo understanding and after ed. on compression alternatives pt receptive to getting velcro closure compression devices. Pt was given information on circaide, Farrow and other compression alternatives. pt was going to have his sister assist him in purchessing. pt to retun to clinic to ensure proper fit and ed. pt on self manual lymph massage Rehabilitation Potential: Questionable - Anticipated Interventions Anticipated Interventions: Education re assistive Equipment, Education re Diagnosis, Manual Lymph Drainage, Education re Life-long lymphedema Management, Education re Skin Care and Precautions, Education re Self Massage Techniques, Education re Correct Donning Tech,Care&Wearing Sched Comp Garments, Caregiver Training, Home Program - Visit Plan TEXT: Thank you for the opportunity to evaluate your patient. For Medicare and Medicare HMO plans, please review the plan of care and approve it. It will need to be FAXED BACK to us at [phone] for Medicare purposes. Please let me know if there are questions or concerns regarding this plan of care. Physician Signature: __Date:
== END 2019-06-16 19:00 | disposition home or self-care (01) ==
LOC: OT 09:44
PROVIDERS: PCP Family Medicine; Referring Provider Nurse Practitioner Family; Visit Provider Nurse Practitioner Family
DX: B74.9 Filariasis, unspecified (principal); I73.9 Peripheral vascular disease, unspecified
CPT/HCPCS: 97166

== ENCOUNTER 2019-06-17 09:35 | Outpatient (RCR) | payer MEDICARE, SELFPAY ==
[2019-06-07 01:09] VITALS: BP 120/66; PULSE 86; RESP 16; TEMP 36.3
[2019-06-17 15:00] VITALS: BP 117/66; PULSE 75; RESP 16; TEMP 36.6; BMI 44.4
--- NOTE | 2019-06-17 17:18 | PN.PCM_ITS ---
(1) Excoriation of left lower leg Status: Chronic Current Visit: Yes Qualifiers: Encounter type: subsequent encounter Qualified Code(s): S80.812D - Abrasion, left lower leg, subsequent encounter Code(s): S80.812A - Abrasion, left lower leg, initial encounter (2) Lymphedema Status: Chronic Current Visit: Yes Code(s): I89.0 - Lymphedema, not elsewhere classified (3) Morbid obesity with BMI of 40.0-44.9, adult Status: Chronic Current Visit: No Code(s): E66.01 - Morbid (severe) obesity due to excess calories; Z68.41 - Body mass index (BMI) 40.0-44.9, adult (4) PVD (peripheral vascular disease) Status: Chronic Current Visit: Yes Code(s): I73.9 - Peripheral vascular disease, unspecified (5) 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 There is a mild language barrier, and no translation is available at initial appointment given a miscommunication about the patient's appointment date and time. The patient reports that he has had swelling in his bilateral lower extremities for many years, as well as cobblestone?appearing lymphedema. He is originally from [facility], and reports moving to the [place] about 25 years ago. He reports his swelling has gotten worse in the last few weeks. He has had weeping from his left lower extremity. He also developed a scab on his right anterior lower leg. He has been using triple antibiotic ointment to both legs, and wrapping with Kerlix. He has not been using any compression. Patient has a PMH significant for type 2 diabetes mellitus (A1c in 01/2019 was 7.6%), morbid obesity, CHF, pulmonary hypertension, [place], ischemic cardiomyopathy, and hyperlipidemia. He is currently managed by Dr. Sandoval at [facility] as his PCP. He is ambulatory with a cane. He does report living with family at home, who can aid in his care as needed. Progress of Wound: Attempted to utilize interpretation services at today's visit, but unable to due to system malfunction. Patient continues to have no open wounds of bilateral lower extremities. Lymphedema is unchanged in bilateral lower extremities. Patient has been compliant with Adaptic and Aquacel extra to area of excoriation on left anterior lower extremity. Patient continues to report weeping of serous, nonpurulent drainage from anterior left lower extremity. This area appears mildly excoriated, but no open wound or ulceration is present. Venous Doppler study completed 06/03/2019: Right great saphenous vein is absent, having been previously harvested; left great saphenous vein incompetent below the knee; right accessory saphenous vein and right mid calf is incompetent; otherwise normal venous Doppler study, see full report for further details. Arterial studies completed 06/03/2019: No evidence of significant arterial occlusive disease in bilateral lower extremities, see full report for further details. The patient denies any fever, chills, nausea, vomiting, or diarrhea. Denies any signs of infection, including increasing pain, redness, swelling, or foul-smelling/purulent drainage from affected area. Patient was seen by lymphedema clinic at [facility] yesterday, and was instructed to order compression wraps for legs. He states he has the money to do so, and plans to order these in the next 1 to 2 days. - Physical Exam Vital Signs Temp Pulse Resp BP 97.9 F 75 16 117/66 06/17/19 15:00 06/17/19 15:00 06/17/19 15:00 06/17/19 15:00 General: Alert, Cooperative, No apparent distress HEENT: Atraumatic, Normocephalic Oral: Moist Mucosa Neck: Supple, No JVD, Trachea Midline Lungs: Normal air movement Cardiovascular: Regular rate Abdomen: Obese Extremities: No clubbing, No cyanosis, Diminished Peripheral Pulses, Edema - Nonpitting, bilateral lower extremity lymphedema with cobblestone appearance, Tenderness - Bilateral lower extremities tender to palpation Skin: Excoriated - Right anterior lower extremity remains unchanged, without open wound or ulceration, skin intact. Left anterior lower extremity appears mildly excoriated, but no open wounds or ulcerations present. No active weeping from either lower extremity. No increased warmth, foul odor, or purulent drainage from either lower extremity. Wound Measurements and Assessment WC - Nurse 1 - General Ulcer Measurement Start: 06/17/19 15:00 Freq: Status: Active Protocol: Activity Type Activity Date Activity User E-Sign Co-Sign Detail Recorded Client Recorded Date Recorded By Document 06/17/19 15:00 [facility] [id number] 06/17/19 15:09 BM 06/17/19 15:00 Wound Center Nurse 1 [Ulcer Assessment] 2-left monaco -Combined with other wound No -Current Size (cm) - Length 1.5 -Current Size (cm) - Width 1.3 -Current Size (cm) - Depth 0.1 -Total Square Cm 1.95 -Epithelialization Large 67-100% -Tunneling No -Undermining/Tunneling No -Circular Undermining No -Exudate Amt Small -Exudate Type Serous -Slough/Fibrin Yes -Necrosis Amt Large (67-100%) -Necrotic Tissue Type Adherent Slough -Texture (Nicolle-wound Skin Appearance) Assessed, Scarring -Moisture (Nicolle-wound Skin Appearance Assessed, ) Maceration, Weeping,Dry/ Scaly -Color (Nicolle-wound Skin Appearance) Assessed, Hemosiderin Staining -Temperature (Nicolle-wound Skin No Abnormality Appearance) (Pt Warm) -Tenderness on Palpation (Nicolle-wound No Skin Appearance) -Ulcer Cleansing Rinsed/ Irrigated with Saline -Foul Odor after Cleansing No -Anesthetic Used 4% Lidocaine Solution [Edema Assessment] -Lower Limb Edema Present Yes -Right Calf (cm) 50.5 -Right Ankle (cm) 32 -Left Calf (cm) 49.5 -Left Ankle (cm) 32.5 WC - Nurse 2 - General Ulcer CM Notes Start: 06/17/19 15:00 Freq: Status: Active Protocol: Activity Type Activity Date Activity User E-Sign Co-Sign Detail Recorded Client Recorded Date Recorded By Document 06/17/19 15:41 DV [id number] 06/17/19 15:43 DV 06/17/19 15:41 Wound Center Nurse 2 [Procedure/Treatment] 2-left monaco -Time 15:41 -Correct Patient Yes -Correct Side, Site, Position Yes -Correct Procedure No -Procedure Performed No -Post Debridement Size (cm) - Length 0 -Post Debridement Size (cm) - Width 0 -Post Debridement Size (cm) - Depth 0 -Total Square Cm 0 -Wound/Ulcer Outcome Healed- Epithelialized [See Physician Procedure note for Specifics] Pain Scale: 0-10 Numeric [Pain] -Is Patient Pain Free? Yes Musculoskeletal: Tenderness - Tenderness on palpation of bilateral lower extremities Neurological: - - Ambulates with a cane Psych/Mental Status: Normal Affect, Appropriate Debridement Note Post-Debridement Measurements/Treatment WC - Nurse 2 - General Ulcer CM Notes Start: 06/17/19 15:00 Freq: Status: Active Protocol: Activity Type Activity Date Activity User E-Sign Co-Sign Detail Recorded Client Recorded Date Recorded By Document 06/17/19 15:41 DV [id number] 06/17/19 15:43 DV 06/17/19 15:41 Wound Center Nurse 2 2-left monaco -Time 15:41 -Correct Patient Yes -Correct Side, Site, Position Yes -Correct Procedure No -Procedure Performed No -Post Debridement Size (cm) - Length 0 -Post Debridement Size (cm) - Width 0 -Post Debridement Size (cm) - Depth 0 -Total Square Cm 0 -Wound/Ulcer Outcome Healed- Epithelialized Pain Scale: 0-10 Numeric Is Patient Pain Free? Yes Assessment/Plan Active Problems (Last Reviewed 01/22/19 @ 13:03 by Rebecca Juan) PVD (peripheral vascular disease) (Chronic) Lymphedema (Chronic) Excoriation of left lower leg (Chronic) Assessment: Excoriation of LLE, chronic. Lymphatic filariasis, chronic, suspected. Lymphedema, chronic. Bilateral lower extremity edema, chronic. PVD, chronic. Morbid obesity, chronic. Differential diagnoses include: Elephantiasis nostras verrucosa Plan: No debridement performed today in clinic, due to lack of open wounds or ulcerations. Patient will be discharged to lymphedema clinic at [facility]. He was instructed to order compression leg wraps as instructed by lymphedema clinic, and is to follow-up as directed at [facility]. Continue to keep feet elevated as much as possible, at or above waist level. Avoid prolonged standing or dangling of legs. Venous Doppler study completed 06/03/2019: Right great saphenous vein is absent, having been previously harvested; left great saphenous vein incompetent below the knee; right accessory saphenous vein and right mid calf is incompetent; otherwise normal venous Doppler study, see full report for further details. Arterial studies completed 06/03/2019: No evidence of significant arterial occlusive disease in bilateral lower extremities, see full report for further details. Follow-up: Follow-up with the lymphedema clinic at [facility] as directed. Follow-up with PCP as scheduled. Return to [facility] on an as-needed basis for any new wounds. Note: [employer] speech recognition backer up software was used to create portions of this document. Sound-alike and misspelled words, as well as other backer up errors may be contained in the documentation. Code Visit Office Visits / Consults: [id number] OV L3 Est
== END 2019-07-05 23:59 ==
LOC: WC 09:35
PROVIDERS: Family Provider Family Medicine; PCP Family Medicine; Referring Provider Nurse Practitioner Family; Visit Provider Nurse Practitioner Family
DX: E11.51 Type 2 diabetes mellitus with diabetic peripheral angiopathy without gangrene (principal); E66.01 Morbid (severe) obesity due to excess calories; Z68.41 Body mass index [BMI] 40.0-44.9, adult; I89.0 Lymphedema, not elsewhere classified; I50.9 Heart failure, unspecified; I25.5 Ischemic cardiomyopathy; I27.20 Pulmonary hypertension, unspecified; E78.5 Hyperlipidemia, unspecified
CPT/HCPCS: 99213; G0463

== ENCOUNTER 2019-06-26 16:53 | Inpatient (IN) | payer MEDICARE, SELFPAY ==
[2019-06-26] VITALS (14 sets, daily range): BP systolic 104–142; BP diastolic 57–85; PULSE 101–116; RESP 19–28; TEMP 37.4–39.2; O2SAT 87–99; BMI 39.8; BMI 43.5
--- NOTE | 2019-06-26 16:54 | EKG12_ITS ---
Test Reason : Blood Pressure : / mmHG Vent. Rate : 106 BPM Atrial Rate : 106 BPM P-R Int : 226 ms QRS Dur : 114 ms QT Int : 302 ms P-R-T Axes : 054 -23 133 degrees QTc Int : 401 ms Sinus tachycardia with 1st degree A-V block Incomplete left bundle branch block Left ventricular hypertrophy with repolarization abnormality Abnormal ECG Confirmed by JOSE ANTONIO NAYAK, LAURA ([id number]), editor newspaper JAY GE ([id number]) on 06/30/2019 2:20:30 PM Referred By: ARJUN Confirmed By:GRICEL BRADY MD
--- NOTE | 2019-06-26 16:59 | ED.DCSUM_ITS ---
History of Present Illness Chief Complaint: Cough Informant: Patient - and EMS and PCP office staff Onset: Yesterday Activity at onset: - - grad onset Timing: Continuous Current Severity: Moderate Maximum Severity: Severe Worsened by: Coughing, Exertion Relieved by: Oxygen, Rest Associated Symptoms: Cough, Fever - subjective, Green sputum, Rhinorrhea, Yellow sputum. Negative for: Bloody Sputum, Sore throat Chest Pain: None Narrative: Patient was seen in the office prior to being sent here by EMS, he tested positive for influenza A and had pulse ox in the 70s on room air. They put him on a 4 L nasal cannula and he is 93%. His blood pressure was good and he was mildly tachycardic at the office. He does not have a known history of COPD or other lung disease except for pulmonary hypertension. He has an AICD due to some type of unknown dysrhythmia according to the office, and a cardiomyopathy with an ejection fraction over 50%. He is a renal patient but not on dialysis. He is not on home oxygen. - Past Medical History (1) CAD (coronary artery disease) Status: Chronic (2) Old myocardial infarction Status: Chronic (3) Bilateral lower extremity edema Status: Chronic (4) Chronic systolic congestive heart failure Status: Chronic (5) Essential hypertension Status: Chronic (6) Ischemic cardiomyopathy Status: Chronic (7) Morbid obesity with BMI of 40.0-44.9, adult Status: Chronic (8) PVD (peripheral vascular disease) Status: Chronic (9) Pulmonary hypertension Status: Chronic (10) Pure hypercholesterolemia Status: Chronic (11) 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 Status: Suspected (12) Chronic kidney disease (CKD) Status: Chronic (13) Type 2 diabetes mellitus Status: Chronic Past Medical History - Allergies and Home Meds Allergies/Adverse Reactions: Allergies No Known Allergies Allergy (Verified 06/26/19 17:04) Primary Care Physician: Manuel Sandoval MD [Primary Care Provider] - Surgical History: coronary bypass surgery, - - AICD Smoking Status: Former smoker - Family History Maternal Family History: Family History (Last Reviewed 01/22/19 @ 13:03 by Rebecca Juan) Mother Hypertension Sister Hypertension Family History: Reports: No pertinent history Review of Systems General: Reports: Fever, Malaise, Subjective. Denies: Sweats Eyes: Denies: Visual changes - bilaterally, Diplopia ENT: Denies: Rhinorrhea, Sore throat Cardiovascular: Denies: Chest pain, Palpitations Respiratory: Reports: Dyspnea, Cough, Sputum, - - no hemoptysis. Denies: Dyspnea on exertion Gastrointestinal: Denies: Abdominal pain, Nausea, Vomiting, Diarrhea, Melena, Hematochezia Genitourinary: Denies: Dysuria, Hematuria, Frequency Musculoskeletal: Reports: Myalgias, Swelling - BLE, chronic. Denies: Neck pain, Back pain, Extremity Pain Skin: Denies: Rash, Wounds Neurological: Denies: Headache, Weakness, Numbness Physical Exam Inital Vital Signs reviewed: Yes General: Well nourished, Well developed, Obese, No Acute Distress Head: Normocephalic, Atraumatic Eyes: Perrl, EOMI ENT: Moist mucous membranes, No rhinorrhea, - - POP clear without asymmetry, exudates. no trismus. Neck: Supple, Nontender, No lymphadenopathy Cardiovascular: Regular rate, Regular rhythm, No murmurs, Tachycardia Respiratory: No distress, Chest nontender, Rales - left base, Wheezing - diffusely throughout expiration Abdomen: Soft, Nontender, Nondistended, Normal bowel sounds, Ventral hernia - self-reduces Back: Nontender, Normal Inspection Extremities: Nontender, Edema - 4+ BLE, symmetric, w/ chronic stasis changes. Negative for: Calf Tenderness Skin: Normal color, No rash Neurological: Alert, Oriented x3, Cranial nerves II-XII grossly intact, Normal Strength, Normal Sensation Psychological: Normal affect, Normal Mood Diagnostic/Tx/Re-eval Impressions Chest X-Ray 06/26/19 17:05 IMPRESSION: No acute pulmonary findings. Electronically Signed: Jose Elias Cm MD at 17:25 EST Tel , Service support , Chest CT 06/26/19 19:54 IMPRESSION: Bibasilar atelectasis. No acute alveolar disease. No evidence of acute mediastinal pathology. Electronically Signed: Jose Elias Cm MD at 20:53 EST Tel , Service support , 06/26/19 17:05 Chest 1 View (Portable) [RAD] Stat 06/26/19 19:54 CT Chest [Chest without Contrast] [CT] Stat Laboratory Results 06/26/19 06/26/19 06/26/19 17:21 17:21 17:21 WBC 7.5 RBC 6.01 Hgb 14.6 Hct 48.4 MCV 80.5 MCH 24.3 L MCHC 30.2 L RDW Std Deviation 44.5 H RDW Coeff of Aubrey 17.0 H Plt Count 147 L MPV 10.9 Immature Gran % (Auto) 0.900 Neut % (Auto) 79.7 H Lymph % (Auto) 5.6 L [place] % (Auto) 13.4 H Eos % (Auto) 0.1 Baso % (Auto) 0.3 Absolute Neuts (auto) 6.0 Absolute Lymphs (auto) 0.42 L Nucleated RBC % 0 Differential Comment SCANNED Sodium Cancelled Potassium Cancelled Chloride Cancelled Carbon Dioxide Cancelled Anion Gap Cancelled BUN Cancelled Creatinine Cancelled Estim Creat Clear Calc Cancelled Est GFR (MDRD) Af Amer Cancelled Est GFR (MDRD) Non-Af Cancelled BUN/Creatinine Ratio Cancelled Glucose Cancelled Lactic Acid Cancelled Calcium Cancelled Troponin I Cancelled 06/26/19 06/26/19 18:19 18:19 WBC RBC Hgb Hct MCV MCH MCHC RDW Std Deviation RDW Coeff of Aubrey Plt Count MPV Immature Gran % (Auto) Neut % (Auto) Lymph % (Auto) [place] % (Auto) Eos % (Auto) Baso % (Auto) Absolute Neuts (auto) Absolute Lymphs (auto) Nucleated RBC % Differential Comment Sodium 138 Potassium 3.7 Chloride 98 Carbon Dioxide 35.0 H Anion Gap 5 BUN 25 H Creatinine 1.83 H Estim Creat Clear Calc 36.41 Est GFR (MDRD) Af Amer 48 L Est GFR (MDRD) Non-Af 40 L BUN/Creatinine Ratio 13.7 Glucose 117 H Lactic Acid 3.2 H* Calcium 9.7 Troponin I < 0.015 - Rhythm Strip Rhythm Strip: Sinus Tach Rate: 106 Ectopy: None - EKG Initial EKG Interpretation: No Acute Injury Pattern, Sinus Tachycardia, LBBB - incomplete, Non-Specific ST Changes Treatment - Dyspnea: Oxygen, Albuterol, Atrovent Repeat Evaluation: Improved - Medical Decision Making Patient was treated with nebulizer treatments, Tylenol, Tamiflu. On reevaluation he states he is breathing much better. He took his oxygen off, but he still desatted to 84% on room air so he was placed back on 4 L where he maintained saturations in the mid to high 90s. He does not have COPD. His chest x-ray is unremarkable. Given his hypoxemia to that degree I obtained a CT of the chest, it does not show any occult pneumonia or any other airspace disease, pericardial effusion, or other acute pathology. This was performed without contrast given his renal failure. I am unable to rule out pulmonary embolus, although that would not explain his abnormal lung sounds and wheezing, but I am treating him with Lovenox empirically until he can get a VQ scan or other confirmatory or disconfirmatory test when safer for his kidneys. Plan is for admission. He is clinically well-appearing at this time, and he was treated with Tamiflu for his pneumonia but I see no reason to also give antibiotics. ED Disposition - Plan for ED Patient: Disposition: Acute Care Hospital [facility] Diagnosis: Hypoxemia, Influenza A, Chronic kidney disease (CKD) Referrals: Manuel Sandoval MD [Primary Care Provider] -
--- NOTE | 2019-06-26 17:05 | RAD_ITS ---
STUDY: X-RAY CHEST REASON FOR EXAM: Male, 63 years old. cough, shortness of breath TECHNIQUE: Single frontal view of the chest. COMPARISON: 07/10/2018 FINDINGS: Median sternotomy wires with CABG clips and markers. Single chamber defibrillator on the left. The lungs are clear and expanded. There is no demonstrated pleural abnormality. Stable cardiomediastinal silhouette. Normal mediastinum and delio. Normal visualized pulmonary arteries. Normal visualized aortic arch and descending thoracic aorta. Normal visualized thoracic spine. Normal visualized ribs, clavicles, and shoulders. There is no demonstrated abnormality of the visualized soft tissue structures of the upper abdomen. RAD/Chest 1 View (Portable) IMPRESSION: No acute pulmonary findings. Electronically Signed: Jose Elias Cm MD at 17:25 EST Tel , Service support ,
[2019-06-26] MEDS: Albuterol 2.5 MG/3 ML VIAL.NEB. INHALATION (17:24)
[2019-06-26] MEDS: Ipratropium/Albuterol Sulfate 3 ML AMPUL.NEB INHALATION ×2 (17:24→23:10)
[2019-06-26 17:42] LABS: Absolute Lymphocyte Count 0.42 X10^3/uL (0.83-4.51); Basophil# 0.02 X10^3/uL; Basophil% 0.3 % (0-1); Eosinophil# 0.01 X10^3/uL; Eosinophils% 0.1 % (0-5); Hematocrit 48.4 % (40-54); Hemoglobin 14.6 g/dL (13.0-16.5); Lymphocyte # 0.42 X10^3/ul (4.0); Lymphocyte % 5.6 % (19-41); Mean Corp Hgb Conc 30.2 g/dL (32-36); Mean Corpuscular Hgb 24.3 pg (27.0-32.0); Mean Corpuscular Volume 80.5 fL (80-94); Mean Platelet Vol. 10.9 fl (6.2-12.0); Monocyte% 13.4 % (0-10); NRBC Flagged by Analyzer 0 % (0-5); Neutrophil # 5.97 X10^3/uL (2.7-7.7); Neutrophil % 79.7 % (47-70); POSITIVE DIFFERENTIAL YES; Platelet Count 147 K/mm3 (150-450); RBC Distribution Width SD 44.5 fl (35.1-43.9); Red Blood Count 6.01 M/mm3 (4.6-6.2); White Blood Count 7.5 K/mm3 (4.4-11.0)
[2019-06-26 17:48] LABS: Differential Indicated SCAN CRITERIA MET
[2019-06-26] MEDS: Oseltamivir Phosphate 75 MG Capsule PO (18:01)
[2019-06-26] MEDS: Acetaminophen 500 MG Tablet 1000 MG PO (18:01)
[2019-06-26 18:28] LABS: Differential Comment SCANNED
[2019-06-26 18:50] LABS: Anion Gap 5 (5-15); BUN 25 mg/dL (7-18); BUN/Creat Ratio 13.7 RATIO (10-20); Calcium,Total 9.7 mg/dL (8.5-10.1); Chloride 98 mmol/L (98-107); Creatinine, Serum 1.83 mg/dL (0.70-1.30); EST Glomerular Filtration Rate 40 mL/min (>60); Est Glom Filt Rate - Afr Amer 48 mL/min (>60); Estimated Creatinine Clearance 36.41 ml/min; Glucose 117 mg/dL (74-106); Potassium 3.7 mmol/L (3.5-5.1); Sodium Level 138 mmol/L (136-145)
[2019-06-26 19:07] LABS: Lactic Acid 3.2 mmol/L (0.4-1.9)
--- NOTE | 2019-06-26 19:54 | CT_ITS ---
STUDY: CT CHEST WITHOUT CONTRAST REASON FOR EXAM: Male, 63 years old. PT STATED COUGH, HYPOXIA RADIATION DOSAGE (If Supplied By Facility): CTDIvol = ( 20.08 ) mGy, DLP = ( 712.36 ) mGycm TECHNIQUE: Transaxial imaging was performed without the administration of intravenous contrast material. Individualized dose optimization techniques were used for this CT. COMPARISON: 07/19/2018 FINDINGS: Median sternotomy wires. Pacemaker on the left. Bibasilar atelectasis. There is no demonstrated pleural abnormality. Normal heart and pericardium. Normal mediastinum. Normal hilar regions. Normal unenhanced pulmonary arteries. Normal aorta arch and descending thoracic aorta. There are multi-level degenerative changes of the thoracic spine. There is no demonstrated abnormality of the visualized upper abdomen. CT/Chest without Contrast IMPRESSION: Bibasilar atelectasis. No acute alveolar disease. No evidence of acute mediastinal pathology. Electronically Signed: Jose Elias Cm MD at 20:53 EST Tel , Service support ,
--- NOTE | 2019-06-26 21:11 | HP.PCM_ITS ---
Problem List (1) Influenza A Status: Acute (2) Morbid obesity with BMI of 40.0-44.9, adult Status: Chronic (3) Bilateral lower extremity edema Status: Chronic (4) PVD (peripheral vascular disease) Status: Chronic (5) Lymphedema Status: Chronic (6) Excoriation of left lower leg Status: Chronic Qualifiers: Encounter type: subsequent encounter Qualified Code(s): S80.812D - Abrasion, left lower leg, subsequent encounter (7) CAD (coronary artery disease) Status: Chronic (8) Hypoxemia Status: Acute (9) Chronic kidney disease (CKD) Status: Chronic (10) Type 2 diabetes mellitus Status: Chronic (11) Essential hypertension Status: Chronic (12) Pure hypercholesterolemia Status: Chronic (13) 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 transplanted heart: [place] heart Qualified Code(s): I25.810 - Atherosclerosis of coronary artery bypass graft(s) without angina pectoris Comment: CABG x6 ; Internal Mammary to Anterior Descending, SVG to diag branch of the Anterior descending,SVG to the lateral & posteriorlateral CX, SVG to Posterior Descending and continuation branches of the RCA 02/27/03 (14) Chronic systolic congestive heart failure Status: Chronic (15) Ischemic cardiomyopathy Status: Chronic (16) Pulmonary hypertension Status: Chronic (17) Presence of cardiac defibrillator Status: Chronic (18) Tachycardia Status: Acute (19) Old myocardial infarction Status: Chronic History of Present Illness Date of Admission: 06/26/19 Chief Complaint: shortness of breath The patient is a 63 year old M with a significant history of ischemic cardiomyopathy; CABG; hypertension; diabetes mellitus; hyperlipidemia and ICD who presents to emergency department with 1 day history of progressively worsening shortness of breath. Associated with symptoms is productive cough of yellow sputum; chills and rigors.. Patient went to the MDs office where his oxygen saturation was in the 70s. He was positive for influenza A. Oxygen was placed on him and he was brought to the emergency department. At the emergency department his oxygen saturation was reportedly 84% on room air.. Chest x-ray was unremarkable. Chest CT was negative for bibasilar atelectasis with no acute alveolar disease. Patient was given Tamiflu at the emergency department for influenza A. Also patient was given therapeutic dose of Lovenox for probable PE. Past Medical History Past Medical History (Chronic Problems): Chronic Problems (Last Reviewed 06/26/19 @ 21:[address] Brian Gallardo MD) Morbid obesity with BMI of 40.0-44.9, adult (Chronic) Bilateral lower extremity edema (Chronic) PVD (peripheral vascular disease) (Chronic) Lymphedema (Chronic) Excoriation of left lower leg (Chronic) CAD (coronary artery disease) (Chronic) Chronic kidney disease (CKD) (Chronic) Type 2 diabetes mellitus (Chronic) Essential hypertension (Chronic) Pure hypercholesterolemia (Chronic) Atherosclerosis of coronary artery bypass graft without angina pectoris (Chronic) CABG x6 ; Internal Mammary to Anterior Descending, SVG to diag branch of the Anterior descending,SVG to the lateral & posteriorlateral CX, SVG to Posterior Descending and continuation branches of the RCA 02/27/03 Chronic systolic congestive heart failure (Chronic) Ischemic cardiomyopathy (Chronic) Pulmonary hypertension (Chronic) Presence of cardiac defibrillator (Chronic ~08/2004) Old myocardial infarction (Chronic) Medical History: Medical History (Last Reviewed 06/26/19 @ 22:[address] Brian Gallardo MD) Essential hypertension (Chronic) I10 Pure hypercholesterolemia (Chronic) E78.00 Atherosclerosis of coronary artery bypass graft without angina pectoris (Chronic) I25.810 CABG x6 ; Internal Mammary to Anterior Descending, SVG to diag branch of the Anterior descending,SVG to the lateral & posteriorlateral CX, SVG to Posterior Descending and continuation branches of the RCA 02/27/03 Chronic systolic congestive heart failure (Chronic) I50.22 Ischemic cardiomyopathy (Chronic) I25.5 Pulmonary hypertension (Chronic) I27.20 Presence of cardiac defibrillator (Chronic) Onset Date: ~08/2004 Z95.810 Tachycardia (Acute) R00.0 Long-term use of high-risk medication (Inactive) Z79.899 Old myocardial infarction (Chronic) I25.2 Angina decubitus I20.8 Edema R60.9 Family history of hypertension Z82.49 Fatty liver K76.0 Type 2 diabetes mellitus E11.9 Abnormal stress test (Inactive) R94.39 Allergies No Known Allergies Allergy (Verified 06/26/19 17:04) Home Medications: Ambulatory Orders Medication Instructions Recorded Aspirin [Aspirin, Baby] 81 mg PO DAILY@0800 03/10/14 colchicine 0.6 mg capsule 0.6 mg PO DAILY cap 05/22/17 metformin 500 mg tablet 1,000 mg PO BIDCM tab 05/22/17 acetaminophen 500 mg tablet 500 mg PO BID PRN PRN tab 01/22/19 glimepiride 2 mg tablet 1 mg PO QAM tab 01/22/19 furosemide 40 mg tablet 40 mg PO BID #180 tab 03/14/19 metoprolol tartrate 100 mg tablet 100 mg PO BID #180 tab 03/14/19 Magnesium Oxide [Mag-Ox 400] 400 mg PO BID 06/03/19 Allopurinol [Zyloprim] 300 mg PO DAILY 06/26/19 Amiodarone HCl 100 mg PO DAILY 06/26/19 Amlodipine Besylate 2.5 mg PO DAILY 06/26/19 Hydrochlorothiazide [Hctz] 25 mg PO DAILY 06/26/19 Isosorbide Mononitrate [Isosorbide 30 mg PO QAM 06/26/19 Mononitrate ER] Lisinopril 20 mg PO BID 06/26/19 Potassium Chloride 20 meq PO BID 06/26/19 Simvastatin 20 mg PO QHS 06/26/19 Surgical History: Surgical History (Last Reviewed 06/26/19 @ 22:[address] Brian Gallardo MD) Aortocoronary bypass status (Resolved) Onset Date: ~02/22/03 Z95.1 CABG x6 ; Internal Mammary to Anterior Descending, SVG to diag branch of the Anterior descending,SVG to the lateral & posteriorlateral CX, SVG to Posterior Descending and continuation branches of the RCA 02/27/03 Surgical History: coronary bypass surgery, - - AICD Smoking Status: Former smoker Alcohol: None - *Family History Maternal Family History: Family History (Last Reviewed 06/26/19 @ 21:[address] Brian Gallardo MD) Mother Hypertension Sister Hypertension Review of Systems Constitutional: Reports: Chills. Denies: Weight Change HEENT: Denies: Head Aches, Sinus Congestion, Sinus Drainage Cardiovascular: Reports: Edema - Bilateral legs. Denies: Chest Pain, Palpitations Respiratory: Reports: Cough, Shortness of Breath, Sputum production Gastrointestinal: Denies: Abdominal Pain, Nausea, Vomiting Genitourinary: Denies: Dysuria Musculoskeletal: Denies: Joint Pain, Joint Tenderness Skin: Denies: Rash, Wounds Neurological: Denies: Numbness, Tingling, Focal weakness Psychiatric: Denies: Anxiety, Depression, Homicidal Ideations, Suicidal Ideations Hematologic/ Lymphatic: Denies: Easy Bruising, Easy Bleeding VTE Information - Inpt Only VTE Present on Admission: No VTE Mechan Device Prophylaxis: None VTE Pharm Prophylaxis ordered?: Yes Patient Problems: Active and Suspected Problems (Last Reviewed 06/26/19 @ 21:[address] Brian Gallardo MD) Hypoxemia (Acute) Influenza A (Acute) - Physical Exam Vitals/I&O's: Vital Signs Temp Pulse Resp BP Pulse Ox 99.9 F H 104 H 19 H 104/57 L 94 06/26/19 20:49 06/26/19 20:49 06/26/19 20:49 06/26/19 19:13 06/26/19 20:49 Oxygen Flow Rate (L/min) 4 Oxygen Delivery Method Nasal Cannula Weight: 108.5 kg Body Mass Index (BMI) 39.8 General: Alert, Oriented x3, Cooperative HEENT: Atraumatic, PERRLA, EOMI, Normocephalic Neck: Supple, Trachea Midline Lungs: Tachypneic, Wheezes Cardiovascular: Normal S1, Normal S2, No murmurs, Tachycardic Abdomen: Bowel Sounds Present, Soft, Non Tender Extremities: Edema - Bilateral lower legs Skin: Excoriated - Left [place], - - Scales on bilateral lower legs Musculoskeletal: No Tenderness to Palpation of Joints or Extremities Neurological: Cranial nerves II-XII grossly intact Psych/Mental Status: Normal Affect, Appropriate Laboratory Results 06/26/19 17:21: WBC 7.5, RBC 6.01, Hgb 14.6, Hct 48.4, MCV 80.5, MCH 24.3 L, MCHC 30.2 L, RDW Std Deviation 44.5 H, RDW Coeff of Aubrey 17.0 H, Plt Count 147 L, MPV 10.9, Immature Gran % (Auto) 0.900, Neut % (Auto) 79.7 H, Lymph % (Auto) 5.6 L, [place] % (Auto) 13.4 H, Eos % (Auto) 0.1, Baso % (Auto) 0.3, Absolute Neuts (auto) 6.0, Absolute Lymphs (auto) 0.42 L, Nucleated RBC % 0, Differential Comment SCANNED 06/26/19 17:21: Sodium Cancelled, Potassium Cancelled, Chloride Cancelled, Carbon Dioxide Cancelled, Anion Gap Cancelled, BUN Cancelled, Creatinine Cancelled, Estim Creat Clear Calc Cancelled, Est GFR (MDRD) Af Amer Cancelled, Est GFR (MDRD) Non-Af Cancelled, BUN/Creatinine Ratio Cancelled, Glucose Cancelled, Calcium Cancelled, Troponin I Cancelled 06/26/19 17:21: Lactic Acid Cancelled 06/26/19 18:19: Sodium 138, Potassium 3.7, Chloride 98, Carbon Dioxide 35.0 H, Anion Gap 5, BUN 25 H, Creatinine 1.83 H, Estim Creat Clear Calc 36.41, Est GFR (MDRD) Af Amer 48 L, Est GFR (MDRD) Non-Af 40 L, BUN/Creatinine Ratio 13.7, Glucose 117 H, Calcium 9.7, Troponin I < 0.015 06/26/19 18:19: Lactic Acid 3.2 H* Assessment/Plan All Active Problems (Last Reviewed 06/26/19 @ 21:[address] Brian Gallardo MD) Hypoxemia (Acute) Influenza A (Acute) Aortocoronary bypass status (Resolved ~02/22/03) Tachycardia (Acute) The patient is a 63 year old M with a significant history of ischemic cardiomyopathy; CABG; hypertension; diabetes mellitus; hyperlipidemia and ICD who presents emergency department with 1 day history of progressively worsening shortness of breath; and influenza A diagnosed in the office and also with hypoxia. Acute respiratory insufficiency likely secondary to influenza A. Tachycardia; tachypnea; T-max of 102.6; shortness of breath; wheezing; cough. Reportedly had positive influenza at MDs office on the same day of presenta tion... Received Tamiflu at the emergency department. Continue Tamiflu renally dose. Placed on scheduled DuoNeb and as needed albuterol. Mucinex for cough. Tylenol PRN for fever and for pain. Admit hypoxia may be explained by his influenza A. Nonetheless will get a d- dimer. If d-dimer is positive consider VQ scan. A CTA of his chest cannot be done because of kidney failure. Received therapeutic dose of Lovenox at the emergency department. We will hold off for therapeutic dose of Lovenox at this time. Chest physiotherapy. Lactic acidosis On presentation his lactic acid was 3.2. Likely secondary to hypoxemia and metformin use. Placed on oxygen per protocol. Hold metformin. Diabetes mellitus with nephropathy and hyperglycemia. Hold home metformin. Continue Amaryl. Accu-Chek QA CHS with correction scale insulin ordered. Dysrhythmia Amiodarone continued. ICD in place. Ischemic cardiomyopathy with history of CABG Cardiac cath on 11/13/2014 showed estimated EF of 45%. Lasix continued. Aspirin continued. Imdur and lisinopril continued. Metoprolol continued. We will trend BMP and if creatinine appears to be above baseline consider holding appropriate nephrotoxics including Lasix and lisinopril. CKD stage III Likely secondary to diabetes mellitus. On presentations creatinine was 1.83. His creatinine appears erratic. Baseline may be around 1.55. Trend BMP for n ow. Hypertension Blood pressure is now within goal. Metoprolol, Imdur, lisinopril, and Lasix continued. Trend blood pressure and adjust blood pressure medications. DVT Prophylaxis Received therapeutic dose of Lovenox for hypoxia. Of note hypoxia could exclusively be from influenza A. Prophylactic dose of Lovenox ordered in next 24 hours. Code Visit Inpatient E&M: 89121 Init Hosp L3
[2019-06-26] MEDS: Enoxaparin 120 MG/0.8 ML Syringe 110 MG SC (21:28)
[2019-06-26 23:11] LABS: D-Dimer Quantitative (DVT/PE) 0.78 FEU/ug/m (0.27-0.49)
[2019-06-26] MEDS: Lisinopril 20 MG Tablet PO (23:26)
[2019-06-26] MEDS: Magnesium Oxide 400 MG Tablet PO (23:26)
[2019-06-26] MEDS: guaiFENesin 1,200 MG Tablet 1200 MG PO (23:26)
[2019-06-26] MEDS: Metoprolol Tartrate 100 MG Tablet PO (23:26)
[2019-06-26] MEDS: Furosemide 40 MG Tablet PO (23:26)
[2019-06-26] MEDS: Atorvastatin Calcium 10 MG Tablet PO (23:56)
[2019-06-27] VITALS (20 sets, daily range): BP systolic 92–122; BP diastolic 55–74; PULSE 81–115; RESP 16–24; TEMP 36.9–38.8; O2SAT 91–100
[2019-06-27 00:01] LABS: Bedside Glucose 171 mg/dL (70-110)
[2019-06-27] MEDS: Insulin Lispro 100 UNIT/ML INSULN.PEN SC ×3 (00:04→11:01)
[2019-06-27] MEDS: Ipratropium/Albuterol Sulfate 3 ML AMPUL.NEB INHALATION ×5 (01:58→19:27)
[2019-06-27] MEDS: Oseltamivir Phosphate 30 MG Capsule PO ×2 (05:14→21:17)
--- NOTE | 2019-06-27 05:55 | NM_ITS ---
CLINICAL: 63-year-old male with reported history of shortness of breath and elevation of the d-dimer VENTILATION-PERFUSION LUNG SCINTIGRAPHY COMPARISON: Plain film chest radiograph report 06/26/2019 FINDINGS: The patient was administered 48.6 mCi 99m Tc DTPA aerosol. The aerosol ventilation study demonstrates heterogeneous ventilation identified throughout the bilateral lung sood without corresponding radiographic changes defined on plain film chest x-ray dated 06/26/2019. Central clumping of the aerosol is noted in the bilateral hemithorax. Following the intravenous administration of 5.8 mCi of 99m Tc MAA the pulmonary perfusion study reveals uniform perfusion throughout both lung sood. There are no segmental or subsegmental perfusion defects identified. There are no ventilation-perfusion mismatches observed. NM/Lung Scan Vent/Perf IMPRESSION: 1. NORMAL 99m Tc MAA pulmonary perfusion imaging examination, according to PIOPED II interpretive criteria. (Sotsman et al, Radiology 246: 941, 2008 Sostephan et al, J Nucl Med 49: 1741, 2008). 2. Central clumping of the aerosol may be secondary to obstructive airway mechanics and or clinical tachypnea. Electronically Signed: Edgar Eagle DO at 11:36 EST Tel , Service support ,
[2019-06-27 06:50] LABS: Bedside Glucose 152 mg/dL (70-110)
[2019-06-27 07:02] LABS: Absolute Lymphocyte Count 0.57 X10^3/uL (0.83-4.51); Absolute Neutrophil Count 4.8 X10^3/uL (2.0-7.7); Basophil# 0.01 X10^3/uL; Basophil% 0.2 % (0-1); Hematocrit 44.7 % (40-54); Hemoglobin 13.6 g/dL (13.0-16.5); Lymphocyte # 0.57 X10^3/ul (4.0); Lymphocyte % 8.7 % (19-41); Mean Corp Hgb Conc 30.4 g/dL (32-36); Mean Corpuscular Hgb 24.1 pg (27.0-32.0); Mean Corpuscular Volume 79.1 fL (80-94); Monocyte# 1.12 X10^3/uL; Monocyte% 17.1 % (0-10); NRBC Flagged by Analyzer 0 % (0-5); Neutrophil # 4.78 X10^3/uL (2.7-7.7); Neutrophil % 72.9 % (47-70); POSITIVE DIFFERENTIAL YES; Platelet Count 131 K/mm3 (150-450); RBC Distribution Width CV 15.8 % (11.6-14.6); RBC Distribution Width SD 44.5 fl (35.1-43.9); Red Blood Count 5.65 M/mm3 (4.6-6.2); White Blood Count 6.6 K/mm3 (4.4-11.0)
[2019-06-27 07:17] LABS: Anion Gap 6 (5-15); BUN 27 mg/dL (7-18); Calcium,Total 8.9 mg/dL (8.5-10.1); Chloride 96 mmol/L (98-107); Differential Indicated SCAN CRITERIA MET; EST Glomerular Filtration Rate 41 mL/min (>60); Est Glom Filt Rate - Afr Amer 49 mL/min (>60); Estimated Creatinine Clearance 31.48 ml/min; Glucose 143 mg/dL (74-106); Potassium 3.8 mmol/L (3.5-5.1); Sodium Level 136 mmol/L (136-145)
[2019-06-27] MEDS: Acetaminophen 325 MG Tablet 650 MG PO ×2 (08:00→18:18)
--- NOTE | 2019-06-27 10:26 | CASEMGMT ---
Addendum entered by Orquidea Baig 06/27/19 15:01: Pt given list of local DME companies at this time, in case he qualifies for home oxygen at discharge. Dorothea GALLARDO CM Original Note: SAMI VELASCO assessment: Face to Face with patient for initial transition planning/care coordination assessment. SAMI VELASCO introduced self and role at [facility], pt voices understanding and consents to assessment at this time. Pt is sitting up in chair in no distress at this time. Pt is A/Ox4 at this time and answers questions appropriately at this time. Care providers, pharmacy, and demographics verified at this time. Presentation: Sent from PCP for SOB/hypoxia-89% RA on arrival to ED Admitting dx: Flu A, hypoxia PCP: Manuel Sandoval Specialists: westley Lucas Pharmacy: [facility] Insurance: [facility] A/B Prescription Benefit: MCR D Living Will/HPOA: Pt states does not have LW/HPOA and declines AD info at this time. LNOK: Reggie Orlando, brother in law Living Arrangements: Pt states lives with sister/vmuglyl-tx-lco in 1 story home and states no concerns at home at this time. Pt states is independent with ADL's. Transportation: Pt states uses [facility] van for transporation and states no transportation concerns at this time. DME/HHC: Pt states has the following DME: cane and shower chair. Pt states no need for any further DME at this time. Pt states no hx of HHC or SNF in the past. Pt states no concerns with going home at time of discharge. Pt is on disability. Pt states does not smoke or drink ETOH. Pt states no further concerns/needs at this time. CM to follow for any further discharge planning/needs. Advised pt to ask for CM if any further questions/concerns/needs arise, voices understanding. Pt Goal: Home Plan: Home Dorothea GALLARDO CM
[2019-06-27] MEDS: Glimepiride 1 MG Tablet PO (10:43)
[2019-06-27] MEDS: Lisinopril 20 MG Tablet PO ×2 (10:43→21:17)
[2019-06-27] MEDS: Allopurinol 300 MG Tablet PO (10:43)
[2019-06-27] MEDS: hydroCHLOROthiazide 25 MG Tablet PO (10:43)
[2019-06-27] MEDS: Amiodarone 200 MG Tablet 100 MG PO (10:43)
[2019-06-27] MEDS: guaiFENesin 1,200 MG Tablet 1200 MG PO ×2 (10:44→21:17)
[2019-06-27] MEDS: Metoprolol Tartrate 100 MG Tablet PO ×2 (10:44→21:17)
[2019-06-27] MEDS: amLODIPine 2.5 MG Tablet PO (10:44)
[2019-06-27] MEDS: Magnesium Oxide 400 MG Tablet PO ×2 (10:44→21:17)
[2019-06-27] MEDS: Furosemide 40 MG Tablet PO ×2 (10:44→18:18)
[2019-06-27] MEDS: Isosorbide Mononitrate 30 MG Tablet PO (10:44)
[2019-06-27] MEDS: Aspirin 81 MG TAB.CHEW PO (10:44)
--- NOTE | 2019-06-27 10:48 | NURSING ---
Verified with pharmacist, miriam Marmolejo to give flu shot with active flu diagnosis.
--- NOTE | 2019-06-27 11:00 | PCM.PN.HOSP ---
Patient Problems: Active and Suspected Problems (Last Reviewed 06/26/19 @ 22:[address] Brian Gallardo MD) Hypoxemia (Acute) Influenza A (Acute) Reason for Visit: States he tried to get an influenza vax this year with Dr. Sandoval, but they didn't have any at that time. He was never able to get a vaccination elsewhere (seems like he didn't consider going elsewhere). Breathing well on oxygen. Vitals/I&O's: Vital Signs Temp Pulse Resp BP Pulse Ox 37.3 C H 92 18 113/69 94 06/27/19 10:10 06/27/19 10:44 06/27/19 10:10 06/27/19 10:10 06/27/19 10:10 Oxygen Flow Rate (L/min) 3 Oxygen Delivery Method Nasal Cannula Weight: 104.5 kg Body Mass Index (BMI) 43.5 Intake and Output for Last 24 Hours 06/25/19 06/26/19 06/27/19 23:59 23:59 23:59 Intake Total 150 / 150 600 / 600 Output Total 750 / 750 Balance 150 / 150 -150 / -150 General: Alert, Cooperative, No apparent distress, - - up in chair, on oxygen. no respiratory distress. HEENT: Atraumatic, Normocephalic Oral: Moist Mucosa, No Gingival or Mucosal Lesions/ Ulcerations Neck: No Nodes, Trachea Midline Lungs: Clear to auscultation, Diminished Cardiovascular: Regular rate, Regular Rhythm, Normal S1, Normal S2 Abdomen: Bowel Sounds Present, Soft, Non Tender, Non-Distended, No Hepato-splenomegaly Extremities: No Calf Tenderness, Edema - lymphedema Skin: No rashes, No breakdown Psych/Mental Status: Normal Affect, Appropriate Laboratory Results 06/26/19 17:21: WBC 7.5, RBC 6.01, Hgb 14.6, Hct 48.4, MCV 80.5, MCH 24.3 L, MCHC 30.2 L, RDW Std Deviation 44.5 H, RDW Coeff of Aubrey 17.0 H, Plt Count 147 L, MPV 10.9, Immature Gran % (Auto) 0.900, Neut % (Auto) 79.7 H, Lymph % (Auto) 5.6 L, Levy % (Auto) 13.4 H, Eos % (Auto) 0.1, Baso % (Auto) 0.3, Absolute Neuts (auto) 6.0, Absolute Lymphs (auto) 0.42 L, Nucleated RBC % 0, Differential Comment SCANNED 06/26/19 17:21: Sodium Cancelled, Potassium Cancelled, Chloride Cancelled, Carbon Dioxide Cancelled, Anion Gap Cancelled, BUN Cancelled, Creatinine Cancelled, Estim Creat Clear Calc Cancelled, Est GFR (MDRD) Af Amer Cancelled, Est GFR (MDRD) Non-Af Cancelled, BUN/Creatinine Ratio Cancelled, Glucose Cancelled, Calcium Cancelled, Troponin I Cancelled 06/26/19 17:21: Lactic Acid Cancelled 06/26/19 18:19: Sodium 138, Potassium 3.7, Chloride 98, Carbon Dioxide 35.0 H, Anion Gap 5, BUN 25 H, Creatinine 1.83 H, Estim Creat Clear Calc 36.41, Est GFR (MDRD) Af Amer 48 L, Est GFR (MDRD) Non-Af 40 L, BUN/Creatinine Ratio 13.7, Glucose 117 H, Calcium 9.7, Troponin I < 0.015 06/26/19 18:19: Lactic Acid 3.2 H* 06/26/19 22:47: D-Dimer Quant (PE/DVT) 0.78 H* 06/26/19 23:50: POC Glucose 171 H 06/27/19 06:15: Sodium 136, Potassium 3.8, Chloride 96 L, Carbon Dioxide 34.0 H, Anion Gap 6, BUN 27 H, Creatinine 1.80 H, Estim Creat Clear Calc 31.48, Est GFR (MDRD) Af Amer 49 L, Est GFR (MDRD) Non-Af 41 L, BUN/Creatinine Ratio 15.0, Glucose 143 H, Calcium 8.9 06/27/19 06:15: WBC 6.6, RBC 5.65, Hgb 13.6, Hct 44.7, MCV 79.1 L, MCH 24.1 L, MCHC 30.4 L, RDW Std Deviation 44.5 H, RDW Coeff of Aubrey 15.8 H, Plt Count 131 L, MPV 11.0, Immature Gran % (Auto) 1.100 H, Neut % (Auto) 72.9 H, Lymph % (Auto) 8.7 L, Levy % (Auto) 17.1 H, Eos % (Auto) 0.0, Baso % (Auto) 0.2, Absolute Neuts (auto) 4.8, Absolute Lymphs (auto) 0.57 L, Nucleated RBC % 0, Differential Comment COMMENT 06/27/19 06:42: POC Glucose 152 H Current Medications Acetaminophen (Tylenol) 650 mg PO Q6H PRN PRN PRN Reason: Pain Score 1-10/Temp > 100.7 F Last Admin: 06/27/19 08:00 Dose: 650 mg Documented by: Albuterol Sulfate (Ventolin Aerosols) 2.5 mg INHALATION Q2H PRN PRN PRN Reason: SOB/Wheezing Albuterol/Ipratropium (Duoneb) 3 ml INHALATION Q4HWA.RT [facility] Last Admin: 06/27/19 08:00 Dose: 3 ml Documented by: Allopurinol (Zyloprim) 300 mg PO DAILYCM [facility] Last Admin: 06/27/19 10:43 Dose: 300 mg Documented by: Amiodarone HCl (Cordarone) 100 mg PO DAILY [facility] Last Admin: 06/27/19 10:43 Dose: 100 mg Documented by: Amlodipine Besylate (Norvasc) 2.5 mg PO DAILY [facility] Last Admin: 06/27/19 10:44 Dose: 2.5 mg Documented by: Aspirin (Aspirin, Baby) 81 mg PO DAILY@0800 [facility] Last Admin: 06/27/19 10:44 Dose: 81 mg Documented by: Atorvastatin Calcium (Lipitor) 10 mg PO QHS [facility] Last Admin: 06/26/19 23:56 Dose: 10 mg Documented by: Colchicine (Colchicine) 0.6 mg PO DAILY [facility] Last Admin: 06/27/19 10:44 Dose: 0.6 mg Documented by: Enoxaparin Sodium (Lovenox) 40 mg SC DAILY [facility] Furosemide (Lasix) 40 mg PO BIDLX [facility] Last Admin: 06/27/19 10:44 Dose: 40 mg Documented by: Glimepir[facility] (Amaryl) [facility] Last Admin: 06/27/19 10:43 Dose: 1 mg Documented by: Glucagon () 1 mg IM .X1 PRN PRN Reason: Hypoglycemia Guaifenesin (Mucinex) 1,200 mg PO BID [facility] Last Admin: 06/27/19 10:44 Dose: 1,200 mg Documented by: Hydrochlorothiazide (Hctz) 25 mg PO DAILY [facility] Last Admin: 06/27/19 10:43 Dose: 25 mg Documented by: Dextrose (Dextrose 10%-Water) 250 mls @ 999 mls/hr IV .Q16M PRN; Protocol PRN Reason: HYPOGLYCEMIA Sodium Chloride () 250 mls @ 15 mls/hr IV .[id number] PRN PRN Reason: Saline Flush Sodium Chloride () 250 mls @ 15 mls/hr IV .[id number] PRN PRN Reason: Additional IVPB Infusion Insulin Human Lispro (Humalog Kwikpen (Bkc)) 0 unit SC ACHS [facility]; Protocol Last Admin: 06/27/19 06:44 Dose: 1 units Documented by: Isosorbide Mononitrate (Imdur) 30 mg PO QAM [facility] Last Admin: 06/27/19 10:44 Dose: 30 mg Documented by: Lisinopril (Zestril) 20 mg PO BID [facility] Last Admin: 06/27/19 10:43 Dose: 20 mg Documented by: Magnesium Oxide (Mag-Ox 400) 400 mg PO BID [facility] Last Admin: 06/27/19 10:44 Dose: 400 mg Documented by: Metoprolol Tartrate (Lopressor (Beta Fany)) 100 mg PO BID [facility] Last Admin: 06/27/19 10:44 Dose: 100 mg Documented by: Ondansetron HCl (Zofran) 4 mg IV Q8H PRN PRN PRN Reason: NAUSEA/VOMITING Oseltamivir Phosphate (Tamiflu) 30 mg PO BID [facility] Stop: 07/01/19 10:01 Last Admin: 06/27/19 05:14 Dose: 30 mg Documented by: Potassium Chloride (K-Dur) [facility]q [facility] Last Admin: 06/27/19 10:44 Dose: 20 meq Documented by: Sodium Chloride () 10 - 40 ml IV UD PRN PRN Reason: SALINE FLUSH STROKE Vital Signs/Narrative: Vital Signs Temp Pulse Resp BP Pulse Ox 06/27/19 10:44 92 06/27/19 10:10 37.3 C H 92 18 113/69 94 06/27/19 07:55 110 H 20 H 91 06/27/19 07:49 20 H Medical Necessity - Tobacco Use Smoking Status: Former smoker Tobacco Use: Non-smoker Assessment/Plan All Active Problems (Last Reviewed 06/26/19 @ 22:[address] Brian Gallardo MD) Hypoxemia (Acute) Influenza A (Acute) Aortocoronary bypass status (Resolved ~02/22/03) Tachycardia (Acute) 1. acute influenza A infection unvaccinated this year bc his PCP did not have any and he did not seek it elsewhere on oseltamivir he is open to receiving the vaccination to help protect him from influenza B 2. acute hypoxic respiratory insufficiency 2/2 influenza A +/- acute bronchitis no infiltrate nor edema on CT chest VQ pending add prednisone and steroids wean oxygen as tolerated 3. ischemic cardiomyopathy EF 45% noted lymphedema RVSP 33mmHg for 11/2012 recheck echo as to see if change in EF and RSVP that may indicate a complicating factor in regards to his respiratory insufficiency continue furosemide, lisinopril, nitrates 4. DM2 fair control continue glimeperide metformin held due to lactic acidosis SSI 5. lymphedema 2/2 cardiomyopathy and pulmonary HTN DC amlodipine as may be contributing to this 6. VTE prophylaxis: LMWH Code Visit Inpatient E&M: 80346 Subs Hosp L2
--- NOTE | 2019-06-27 11:17 | ECHOD_ITS ---
Reason For Study: SOB Procedure This was a 2D Doppler, Color Flow transthoracic echocardiogram. The study was technically difficult. Exam performed portable in patient room. Left Ventricle Normal LV size. The estimated ejection fraction is 55 %. Normal diastology for age. No regional wall motion abnormalities noted. Right Ventricle Normal RV size. ICD or pacer leads identified within the right ventricle. Normal systolic function. Atria Normal left atrium. Normal right atrium. ICD or pacer leads identified within the right atrium. No doppler evidence for ASD. Mitral Valve There is no mitral valve stenosis. No mitral valve insufficiency. Tricuspid Valve There is no tricuspid stenosis. Trivial tricuspid valve insufficiency. Pulmonary artery systolic pressure is 65-70 mmHg. Severe pulmonary hypertension. Aortic Valve Trisinus/trileaflet aortic valve. There is no aortic stenosis. No aortic valve insufficiency. Pulmonic Valve There is no pulmonic valvular stenosis. Trivial pulmonic valve insufficiency. Great Vessels Normal aortic root. Pericardium/Pleural No pericardial effusion. Medication Definity deferred due to RVSP. MMode/2D Measurements & Calculations LVIDd: 6.0 cm IVSd: 1.1 cm Ao root diam: 3.5 cm LVIDs: 5.0 cm LVPWd: 0.74 cm FS: 16.3 % LAV(MOD-bp): 51.9 ml LA A4 area: 21.6 cm2 LA dimension(2D): 3.9 cm LAV(MOD-bp) Indexed: 25.8 ml/m2 LAV(MOD-sp2): 29.4 ml LAV(MOD-sp4): 57.9 ml RA A4 area: 16.4 cm2 Doppler Measurements & Calculations MV E max luma: 72.9 cm/sec Ao V2 max: 126.1 cm/sec LV V1 max: 112.7 cm/sec MV A max luma: 62.7 cm/sec Ao max P.4 mmHg LV V1 max P.1 mmHg MV E/A: 1.2 PA V2 max: 96.9 cm/sec TR max luma: 384.1 cm/sec TR max P.7 mmHg Interpretation Summary The estimated ejection fraction is 55 %. Normal diastology for age. Trivial tricuspid valve insufficiency. Pulmonary artery systolic pressure is 65-70 mmHg. Severe pulmonary hypertension. Ordering Physician: Manuel Orozco Referring Physician: Manuel Sandoval MD Performed By: Deonna Mesa RDCS
[2019-06-27 11:45] LABS: Bedside Glucose 212 mg/dL (70-110)
--- NOTE | 2019-06-27 11:50 | CPS ---
Patient's lunch tray at bedside, PEP therapy not done
[2019-06-27 16:35] LABS: Bedside Glucose 138 mg/dL (70-110)
[2019-06-27] MEDS: Atorvastatin Calcium 10 MG Tablet PO (21:17)
[2019-06-27] MEDS: Enoxaparin 40 MG/0.4 ML Syringe SC (21:17)
[2019-06-27 21:31] LABS: Bedside Glucose 111 mg/dL (70-110)
[2019-06-28] VITALS (18 sets, daily range): BP systolic 100–120; BP diastolic 60–70; PULSE 75–98; RESP 16–20; TEMP 36.6–38.6; O2SAT 91–96
[2019-06-28] MEDS: Acetaminophen 325 MG Tablet 650 MG PO ×3 (01:26→22:34)
[2019-06-28] MEDS: 0.9% Saline Lock 10 ML Syringe IV (01:43)
[2019-06-28 06:45] LABS: Bedside Glucose 145 mg/dL (70-110)
[2019-06-28] MEDS: Ipratropium/Albuterol Sulfate 3 ML AMPUL.NEB INHALATION ×4 (07:05→19:33)
[2019-06-28 07:11] LABS: Anion Gap 8 (5-15); BUN 39 mg/dL (7-18); BUN/Creat Ratio 18.5 RATIO (10-20); Calcium,Total 8.2 mg/dL (8.5-10.1); Chloride 97 mmol/L (98-107); Creatinine, Serum 2.11 mg/dL (0.70-1.30); EST Glomerular Filtration Rate 34 mL/min (>60); Est Glom Filt Rate - Afr Amer 41 mL/min (>60); Estimated Creatinine Clearance 26.85 ml/min; Glucose 159 mg/dL (74-106); Potassium 3.9 mmol/L (3.5-5.1); Sodium Level 136 mmol/L (136-145)
[2019-06-28] MEDS: Glimepiride 1 MG Tablet PO (10:22)
[2019-06-28] MEDS: Aspirin 81 MG TAB.CHEW PO (10:22)
[2019-06-28] MEDS: Allopurinol 300 MG Tablet PO (10:22)
[2019-06-28] MEDS: Amiodarone 200 MG Tablet 100 MG PO (10:23)
[2019-06-28] MEDS: Magnesium Oxide 400 MG Tablet PO ×2 (10:23→22:00)
[2019-06-28] MEDS: Enoxaparin 40 MG/0.4 ML Syringe SC (10:23)
[2019-06-28] MEDS: guaiFENesin 1,200 MG Tablet 1200 MG PO ×2 (10:24→22:00)
[2019-06-28] MEDS: Oseltamivir Phosphate 30 MG Capsule PO ×2 (10:24→22:00)
[2019-06-28] MEDS: hydroCHLOROthiazide 25 MG Tablet PO (11:25)
[2019-06-28] MEDS: Metoprolol Tartrate 100 MG Tablet PO ×2 (11:25→22:00)
[2019-06-28] MEDS: Isosorbide Mononitrate 30 MG Tablet PO (11:25)
[2019-06-28] MEDS: Lisinopril 20 MG Tablet PO ×2 (11:25→22:00)
[2019-06-28] MEDS: Furosemide 40 MG Tablet PO (11:25)
[2019-06-28] MEDS: Insulin Lispro 100 UNIT/ML INSULN.PEN SC ×3 (11:31→22:00)
[2019-06-28 11:36] LABS: Bedside Glucose 226 mg/dL (70-110)
--- NOTE | 2019-06-28 12:53 | PN_ITS ---
Patient Problems: Active and Suspected Problems (Last Reviewed 06/26/19 @ 22:[address] Brian Gallardo MD) Hypoxemia (Acute) Influenza A (Acute) Reason for Visit: influenza A Subjective: breathing better, though still on oxygen. States that he has never been diagnosed with KEVIN nor had sleep studies before. Vitals/I&O's: Vital Signs Temp Pulse Resp BP Pulse Ox 38.2 C H 98 16 105/61 92 06/28/19 10:00 06/28/19 11:25 06/28/19 11:14 06/28/19 11:25 06/28/19 10:00 Oxygen Flow Rate (L/min) 3 Oxygen Delivery Method Nasal Cannula Weight: 104.5 kg Body Mass Index (BMI) 43.5 Intake and Output for Last 24 Hours 06/26/19 06/27/19 06/28/19 23:59 23:59 23:59 Intake Total 150 / 150 1320 / 1370 290 / 290 Output Total 1950 / 2400 700 / 700 Balance 150 / 150 -630 / -1030 -410 / -410 General: Alert, No apparent distress HEENT: Atraumatic, Normocephalic Oral: Moist Mucosa, No Gingival or Mucosal Lesions/ Ulcerations Neck: No Nodes, Trachea Midline Lungs: Diminished, Wheezes Cardiovascular: Regular rate, Regular Rhythm, Normal S1, Normal S2, No murmurs Abdomen: Bowel Sounds Present, Soft, Non Tender, Non-Distended, Obese Extremities: No Calf Tenderness, Edema Skin: No rashes, No breakdown Psych/Mental Status: Normal Affect, Appropriate Laboratory Results 06/27/19 16:15: POC Glucose 138 H 06/27/19 21:15: POC Glucose 111 H 06/28/19 05:45: Sodium 136, Potassium 3.9, Chloride 97 L, Carbon Dioxide 31.0, Anion Gap 8, BUN 39 H, Creatinine 2.11 H, Estim Creat Clear Calc 26.85, Est GFR (MDRD) Af Amer 41 L, Est GFR (MDRD) Non-Af 34 L, BUN/Creatinine Ratio 18.5, Glucose 159 H, Calcium 8.2 L 06/28/19 06:37: POC Glucose 145 H 06/28/19 11:30: POC Glucose 226 H Current Medications Acetaminophen (Tylenol) 650 mg PO Q6H PRN PRN PRN Reason: Pain Score 1-10/Temp > 100.7 F Last Admin: 06/28/19 10:24 Dose: 650 mg Documented by: Albuterol Sulfate (Ventolin Aerosols) 2.5 mg INHALATION Q2H PRN PRN PRN Reason: SOB/Wheezing Albuterol/Ipratropium (Duoneb) 3 ml INHALATION Q4HWA.RT [facility] Last Admin: 06/28/19 11:14 Dose: 3 ml Documented by: [facility]) [facility] Last Admin: 06/28/19 10:22 Dose: 300 mg Documented by: Amiodarone HCl (Cordarone) 100 mg PO DAILY [facility] Last Admin: 06/28/19 10:23 Dose: 100 mg Documented by: Aspirin (Aspirin, Baby) 81 mg PO DAILY@0800 [facility] Last Admin: 06/28/19 10:22 Dose: 81 mg Documented by: Atorvastatin Calcium (Lipitor) 10 mg PO QHS [facility] Last Admin: 06/27/19 21:17 Dose: 10 mg Documented by: Colchicine (Colchicine) 0.6 mg PO DAILY [facility] Last Admin: 06/28/19 10:22 Dose: 0.6 mg Documented by: Enoxaparin Sodium (Lovenox) 40 mg SC DAILY [facility] Last Admin: 06/28/19 10:23 Dose: 40 mg Documented by: Furosemide (Lasix) 40 mg PO BIDLX [facility] Last Admin: 06/28/19 11:25 Dose: 40 mg Documented by: [facility]pir[facility] (Amaryl) [facility] Last Admin: 06/28/19 10:22 Dose: 1 mg Documented by: Glucagon () 1 mg IM .X1 PRN PRN Reason: Hypoglycemia Guaifenesin (Mucinex) 1,200 mg PO BID [facility] Last Admin: 06/28/19 10:24 Dose: 1,200 mg Documented by: Hydrochlorothiazide (Hctz) 25 mg PO DAILY [facility] Last Admin: 06/28/19 11:25 Dose: 25 mg Documented by: Dextrose (Dextrose 10%-Water) 250 mls @ 999 mls/hr IV .Q16M PRN; Protocol PRN Reason: HYPOGLYCEMIA Sodium Chloride () 250 mls @ 15 mls/hr IV .[id number] PRN PRN Reason: Saline Flush Sodium Chloride () 250 mls @ 15 mls/hr IV .[id number] PRN PRN Reason: Additional IVPB Infusion Insulin Human Lispro (Humalog Kwikpen (Bkc)) 0 unit SC ACHS [facility]; Protocol Last Admin: 06/28/19 11:31 Dose: 1 units Documented by: Isosorbide Mononitrate (Imdur) 30 mg PO QAM [facility] Last Admin: 06/28/19 11:25 Dose: 30 mg Documented by: Lisinopril (Zestril) 20 mg PO BID [facility] Last Admin: 06/28/19 11:25 Dose: 20 mg Documented by: Magnesium Oxide (Mag-Ox 400) 400 mg PO BID [facility] Last Admin: 06/28/19 10:23 Dose: 400 mg Documented by: Metoprolol Tartrate (Lopressor (Beta Fany)) 100 mg PO BID [facility] Last Admin: 06/28/19 11:25 Dose: 100 mg Documented by: Ondansetron HCl (Zofran) 4 mg IV Q8H PRN PRN PRN Reason: NAUSEA/VOMITING Oseltamivir Phosphate (Tamiflu) 30 mg PO BID [facility] Stop: 07/01/19 10:01 Last Admin: 06/28/19 10:24 Dose: 30 mg Documented by: Potassium Chlor[facility] (K-Dur) [facility] Last Admin: 06/28/19 10:22 Dose: 20 meq Documented by: Sodium Chloride () 10 - 40 ml IV UD PRN PRN Reason: SALINE FLUSH Last Admin: 06/28/19 01:43 Dose: 10 ml Documented by: STROKE Vital Signs/Narrative: Vital Signs Temp Pulse Resp BP Pulse Ox 06/28/19 11:25 98 105/61 06/28/19 11:14 96 16 06/28/19 10:00 38.2 C H 98 20 H 105/61 92 06/28/19 09:00 95 Medical Necessity - Tobacco Use Smoking Status: Former smoker Tobacco Use: Non-smoker Assessment/Plan All Active Problems (Last Reviewed 06/26/19 @ 22:[address] Brian Gallardo MD) Hypoxemia (Acute) Influenza A (Acute) Aortocoronary bypass status (Resolved ~02/22/03) Tachycardia (Acute) 1. acute influenza A infection * unvaccinated this year bc his PCP did not have any and he did not seek it elsewhere * on oseltamivir * did received vaccination this admission 2. acute hypoxic respiratory insufficiency * 2/2 influenza A +/- acute bronchitis * no infiltrate nor edema on CT chest * VQ negative * add prednisone * wean oxygen as tolerated * ambulatory pulse ox prior to discharge 3. HFpEF * EF 55% * recheck echo as to see if change in EF and RSVP that may indicate a complicating factor in regards to his respiratory insufficiency * DC HCTZ, increase furosemide to 60 BID 4. Pulmonary HTN * worse: was 33% in 2012, now 65-70% * DW Dr. Sharma. Patient will follow up in pulm clinic for getting set up for PSG * VQ negative for chronic VTE 5. DM2 * fair control * continue glimeperide * metformin held due to lactic acidosis * SSI 6. lymphedema * 2/2 cardiomyopathy and pulmonary HTN * DC amlodipine as may be contributing to this 7. VTE prophylaxis: LMWH Monitor overnight. Code Visit Inpatient E&M: 63886 Subs Hosp L2
[2019-06-28] MEDS: predniSONE 20 MG Tablet 40 MG PO (13:36)
[2019-06-28] MEDS: Furosemide 40 MG Tablet 60 MG PO (18:07)
[2019-06-28 18:16] LABS: Bedside Glucose 197 mg/dL (70-110)
[2019-06-28] MEDS: Atorvastatin Calcium 10 MG Tablet PO (22:00)
[2019-06-28 22:36] LABS: Bedside Glucose 271 mg/dL (70-110)
[2019-06-29] VITALS (12 sets, daily range): BP systolic 96–110; BP diastolic 58–71; PULSE 66–96; RESP 16–18; TEMP 36.4–37.2; O2SAT 86–96
[2019-06-29 06:34] LABS: Anion Gap 3 (5-15); BUN 49 mg/dL (7-18); BUN/Creat Ratio 21.1 RATIO (10-20); Calcium,Total 7.9 mg/dL (8.5-10.1); Chloride 101 mmol/L (98-107); Creatinine, Serum 2.32 mg/dL (0.70-1.30); EST Glomerular Filtration Rate 30 mL/min (>60); Est Glom Filt Rate - Afr Amer 37 mL/min (>60); Estimated Creatinine Clearance 24.42 ml/min; Glucose 258 mg/dL (74-106); Potassium 4.6 mmol/L (3.5-5.1); Sodium Level 138 mmol/L (136-145)
[2019-06-29] MEDS: Insulin Lispro 100 UNIT/ML INSULN.PEN SC ×2 (07:01→11:53)
[2019-06-29 07:05] LABS: Bedside Glucose 252 mg/dL (70-110)
[2019-06-29] MEDS: Ipratropium/Albuterol Sulfate 3 ML AMPUL.NEB INHALATION ×2 (07:06→11:10)
[2019-06-29] MEDS: Aspirin 81 MG TAB.CHEW PO (07:58)
[2019-06-29] MEDS: Allopurinol 300 MG Tablet PO (07:58)
[2019-06-29] MEDS: predniSONE 20 MG Tablet 40 MG PO (07:58)
[2019-06-29] MEDS: Glimepiride 1 MG Tablet PO (07:58)
--- NOTE | 2019-06-29 08:07 | CPS ---
PT DECREASED TO 2 LPM...94%. NURSE AWARE OF CHANGE
[2019-06-29] MEDS: Furosemide 40 MG Tablet 60 MG PO (10:54)
[2019-06-29] MEDS: Lisinopril 20 MG Tablet PO (10:55)
[2019-06-29] MEDS: Amiodarone 200 MG Tablet 100 MG PO (10:55)
[2019-06-29] MEDS: guaiFENesin 1,200 MG Tablet 1200 MG PO (10:55)
[2019-06-29] MEDS: Magnesium Oxide 400 MG Tablet PO (10:55)
[2019-06-29] MEDS: Metoprolol Tartrate 100 MG Tablet PO (10:55)
[2019-06-29] MEDS: Oseltamivir Phosphate 30 MG Capsule PO (10:55)
[2019-06-29] MEDS: Isosorbide Mononitrate 30 MG Tablet PO (10:55)
[2019-06-29] MEDS: Enoxaparin 40 MG/0.4 ML Syringe SC (10:56)
[2019-06-29 11:55] LABS: Bedside Glucose 306 mg/dL (70-110)
--- NOTE | 2019-06-29 12:03 | DCINST_ITS ---
- Discharge Diagnoses Current Active Problems: Current Active and Chronic Problems (Last Reviewed 06/26/19 @ 22:[address] Brian Gallardo MD) CAD (coronary artery disease) (Chronic) Hypoxemia (Acute) Influenza A (Acute) Chronic kidney disease (CKD) (Chronic) Type 2 diabetes mellitus (Chronic) You will use the following diet at home:: Calorie/Carbohydrate Controlled (specify 1200, 1400, etc) - 1800, Cardiac, Fluid restricted (specify 2000 mls, 1500 mls) - 1500 Your food should be the consistency of: Regular Your liquids should be the consistency of: Regular/Thin Discharge Activity: Return to Normal Activity Call your doctor if you observe: Fever of 101 or Higher, Shortness of breath Instructions: What Is Heart Failure?, Heart Failure: Warning Signs of a Flare- Up, Heart Failure: Tracking Your Weight, Heart Failure: Being Active, Heart Failure: Making Changes to Your Diet Allergies/Adverse Reactions: Allergies No Known Allergies Allergy (Verified 06/26/19 17:04) Medications to take at Discharge Aspirin [Aspirin, Baby] 81 mg PO DAILY@0800 03/10/14 colchicine 0.6 mg capsule 0.6 mg PO DAILY cap 05/22/17 acetaminophen 500 mg tablet 500 mg PO BID PRN PRN tab 01/22/19 glimepiride 2 mg tablet 1 mg PO QAM tab 01/22/19 furosemide 40 mg tablet 40 mg PO BID #180 tab 03/14/19 metoprolol tartrate 100 mg tablet 100 mg PO BID #180 tab 03/14/19 Magnesium Oxide [Mag-Ox 400] 400 mg PO BID 06/03/19 Allopurinol [Zyloprim] 300 mg PO DAILY 06/26/19 Amiodarone HCl 100 mg PO DAILY 06/26/19 Isosorbide Mononitrate [Isosorbide Mononitrate ER] 30 mg PO QAM 06/26/19 Lisinopril 20 mg PO BID 06/26/19 Simvastatin 20 mg PO QHS 06/26/19 Tiotropium Br/Olodaterol HCl [Stiolto Respimat Inhal [place]] 2 puff IH DAILY 06/27/19 Guaifenesin [Mucinex] 1,200 mg PO BID #10 tab 06/29/19 Oseltamivir Phosphate [Tamiflu] 30 mg PO BID #5 cap 06/29/19 Potassium Chloride 20 meq PO BID #5 06/29/19 predniSONE tablet 2 tab PO DAILY@0800 #8 tab 06/29/19 The following prescriptions were given: Guaifenesin [Mucinex] 1,200 mg PO BID #10 tab Transmission Status: Pending to [facility] [place] predniSONE tablet 2 tab PO DAILY@0800 #8 tab Transmission Status: Pending to [facility] [place] Oseltamivir Phosphate [Tamiflu] 30 mg PO BID #5 cap Transmission Status: Pending to [facility] [place] Orders to be completed after discharge: Basic Metabolic Profile (BMP) Time Frame: 1 Week, Facility: [facility], Location: Laboratory Primary Care Physician: Manuel Sandoval MD [Primary Care Provider] - Within 1 Week Test Results: Test results from this visit will be discussed in further detail at your follow- up appointment, if applicable. Please Follow Up With: Rebecca Santoyo PA When: 07/24/2019, already scheduled Please Follow Up With: Riya Connolly NP-C - Pulmonology When: 2-4 weeks Proposed Discharge Date: 06/29/19
--- NOTE | 2019-06-29 12:07 | DS.PCM_ITS ---
Discharge Date and Diagnosis - Problem List Patient Problems: Active and Suspected Problems (Last Reviewed 06/26/19 @ 22:[address] Brian Gallardo MD) Hypoxemia (Acute) Influenza A (Acute) Date of Admission: 06/26/19 Date of Discharge: 06/29/19 - Primary Discharge Diagnosis Active and Suspected Problems (Last Reviewed 06/26/19 @ 22:[address] Brian Gallardo MD) Hypoxemia (Acute) Influenza A (Acute) - Secondary Discharge Diagnosis Chronic Problems (Last Reviewed 06/26/19 @ 22:[address] Brian Gallardo MD) Morbid obesity with BMI of 40.0-44.9, adult (Chronic) Bilateral lower extremity edema (Chronic) PVD (peripheral vascular disease) (Chronic) Lymphedema (Chronic) Excoriation of left lower leg (Chronic) CAD (coronary artery disease) (Chronic) Chronic kidney disease (CKD) (Chronic) Type 2 diabetes mellitus (Chronic) Essential hypertension (Chronic) Pure hypercholesterolemia (Chronic) Atherosclerosis of coronary artery bypass graft without angina pectoris (Chronic) CABG x6 ; Internal Mammary to Anterior Descending, SVG to diag branch of the Anterior descending,SVG to the lateral & posteriorlateral CX, SVG to Posterior Descending and continuation branches of the RCA 02/27/03 Chronic systolic congestive heart failure (Chronic) Ischemic cardiomyopathy (Chronic) Pulmonary hypertension (Chronic) Presence of cardiac defibrillator (Chronic ~08/2004) Old myocardial infarction (Chronic) Hospital Course and Treatment Imaging Results: Clinical Impression(s) from Imaging Studies Chest X-Ray 06/26/19 17:05 IMPRESSION: No acute pulmonary findings. Electronically Signed: Jose Elias Cm MD at 17:25 EST Tel , Service support , Chest CT 06/26/19 19:54 IMPRESSION: Bibasilar atelectasis. No acute alveolar disease. No evidence of acute mediastinal pathology. Electronically Signed: Jose Elias Cm MD at 20:53 EST Tel , Service support , Lung Scan-VQ NM 06/27/19 05:55 IMPRESSION: 1. NORMAL 99m Tc MAA pulmonary perfusion imaging examination, according to PIOPED II interpretive criteria. (Sograceman et al, Radiology 246: 941, 2008 Sostephan et al, J Nucl Med 49: 1741, 2008). 2. Central clumping of the aerosol may be secondary to obstructive airway mechanics and or clinical tachypnea. Electronically Signed: Edgar Eagle, DO at 11:36 EST Tel , Service support , Operations: None Procedures: 2-D Echocardiogram - Interpretation Summary The estimated ejection fraction is 55 %. Normal diastology for age. Trivial tricuspid valve insufficiency. Pulmonary artery systolic pressure is 65-70 mmHg. Severe pulmonary hypertension. Summary of Care Provided: The patient is a 63 year old M presents with shortness of breath. Patient was noted to be hypoxic with pulse ox in the 84% range. Patient was admitted tested positive for influenza A and started on Tamiflu. Patient oxygen related not change much during the course of his hospitalization. Patient had previously had diagnosis of pulmonary hypertension based on echocardiogram from 2012 where the pulmonary pressures were 30 mmHg at that time. Patient underwent a repeat echocardiogram that showed pulmonary pressures of 65 to 70%. I discussed with Dr. Sharma, pulmonology, recommends outpatient follow-up and getting a sleep study with pulmonology. Patient remained stable on oxygen. Patient will have an amatory pulse ox. I am concerned the patient may live in a hypoxemic states at baseline. Will check an amatory pulse ox and if low then patient will need to have oxygen. Patient will be on Tamiflu to complete a 5-day course but also on a short course of prednisone. Patient did have some renal insufficiency was here so his HCTZ was discontinued and patient continue with furosemide. Patient blood sugars have been elevated but likely exacerbated due to the steroids. Given the patient's underlying heart failure, will hold off on metformin and: Continue with glimepiride. [] Patient Problems: Active and Suspected Problems (Last Reviewed 06/26/19 @ 22:[address] Brian Gallardo MD) Hypoxemia (Acute) Influenza A (Acute) - Physical Exam Vitals/I&O's: Vital Signs Temp Pulse Resp BP Pulse Ox 36.4 C L 78 16 110/71 94 06/29/19 10:35 06/29/19 11:10 06/29/19 11:10 06/29/19 10:35 06/29/19 10:35 Oxygen Flow Rate (L/min) 2 Oxygen Delivery Method Nasal Cannula Weight: 104.5 kg Body Mass Index (BMI) 43.5 Intake and Output for Last 24 Hours 06/27/19 06/28/19 06/29/19 23:59 23:59 23:59 Intake Total 1320 / 1370 770 / 1250 600 / 600 Output Total 1950 / 2400 700 / 900 750 / 750 Balance -630 / -1030 70 / 350 -150 / -150 General: Alert, Cooperative, No apparent distress HEENT: Atraumatic, Normocephalic Oral: Moist Mucosa, No Gingival or Mucosal Lesions/ Ulcerations Neck: No Nodes, Trachea Midline Lungs: Normal air movement, Wheezes Cardiovascular: Regular rate, Regular Rhythm, Normal S1, Normal S2, No murmurs Abdomen: Bowel Sounds Present, Soft, Non Tender, Non-Distended, No Hepato- splenomegaly Extremities: No edema, No Calf Tenderness Psych/Mental Status: Normal Affect, Appropriate Microbiology Past 72 Hours 06/26/19 17:32 Blood Culture (Wb) #2 - Right Hand Blood Culture - Preliminary No growth in 48 hours. 06/26/19 17:21 Blood Culture (Wb) - Left Hand Blood Culture - Preliminary No growth in 48 hours. Laboratory Results 06/28/19 17:55: POC Glucose 197 H 06/28/19 21:53: POC Glucose 271 H 06/29/19 05:30: Sodium 138, Potassium 4.6, Chloride 101, Carbon Dioxide 34.0 H, Anion Gap 3 L, BUN 49 H, Creatinine 2.32 H, Estim Creat Clear Calc 24.42, Est GFR (MDRD) Af Amer 37 L, Est GFR (MDRD) Non-Af 30 L, BUN/Creatinine Ratio 21.1 H , Glucose 258 H, Calcium 7.9 L 06/29/19 07:00: POC Glucose 252 H 06/29/19 11:50: POC Glucose 306 H Current Medications Acetaminophen (Tylenol) 650 mg PO Q6H PRN PRN PRN Reason: Pain Score 1-10/Temp > 100.7 F Last Admin: 06/28/19 22:34 Dose: 650 mg Documented by: Albuterol Sulfate (Ventolin Aerosols) 2.5 mg INHALATION Q2H PRN PRN PRN Reason: SOB/Wheezing Albuterol/Ipratropium (Duoneb) 3 ml INHALATION Q4HWA.RT [facility] Last Admin: 06/29/19 11:10 Dose: 3 ml Documented by: [facility] Last Admin: 06/29/19 07:58 Dose: 300 mg Documented by: Amiodarone HCl (Cordarone) 100 mg PO DAILY [facility] Last Admin: 06/29/19 10:55 Dose: 100 mg Documented by: Aspirin (Aspirin, Baby) 81 mg PO DAILY@0800 [facility] Last Admin: 06/29/19 07:58 Dose: 81 mg Documented by: Atorvastatin Calcium (Lipitor) 10 mg PO QHS [facility] Last Admin: 06/28/19 22:00 Dose: 10 mg Documented by: Colchicine (Colchicine) 0.6 mg PO DAILY [facility] Last Admin: 06/29/19 10:55 Dose: 0.6 mg Documented by: Enoxaparin Sodium (Lovenox) 40 mg SC DAILY [facility] Last Admin: 06/29/19 10:56 Dose: 40 mg Documented by: Furosemide (Lasix) 60 mg PO BIDLX [facility] Last Admin: 06/29/19 10:54 Dose: 60 mg Documented by: Gl[facility]piride (Amaryl) [facility] Last Admin: 06/29/19 07:58 Dose: 1 mg Documented by: Glucagon () 1 mg IM .X1 PRN PRN Reason: Hypoglycemia Guaifenesin (Mucinex) 1,200 mg PO BID [facility] Last Admin: 06/29/19 10:55 Dose: 1,200 mg Documented by: Dextrose (Dextrose 10%-Water) 250 mls @ 999 mls/hr IV .Q16M PRN; Protocol PRN Reason: HYPOGLYCEMIA Sodium Chloride () 250 mls @ 15 mls/hr IV .[id number] PRN PRN Reason: Saline Flush Sodium Chloride () 250 mls @ 15 mls/hr IV .[id number] PRN PRN Reason: Additional IVPB Infusion Insulin Human Lispro (Humalog Kwikpen (Bkc)) 0 unit SC ACHS [facility]; Protocol Last Admin: 06/29/19 11:53 Dose: 3 units Documented by: Isosorbide Mononitrate (Imdur) 30 mg PO QAM [facility] Last Admin: 06/29/19 10:55 Dose: 30 mg Documented by: Lisinopril (Zestril) 20 mg PO BID [facility] Last Admin: 06/29/19 10:55 Dose: 20 mg Documented by: Magnesium Oxide (Mag-Ox 400) 400 mg PO BID [facility] Last Admin: 06/29/19 10:55 Dose: 400 mg Documented by: Metoprolol Tartrate (Lopressor (Beta Fany)) 100 mg PO BID [facility] Last Admin: 06/29/19 10:55 Dose: 100 mg Documented by: Ondansetron HCl (Zofran) 4 mg IV Q8H PRN PRN PRN Reason: NAUSEA/VOMITING Oseltamivir Phosphate (Tamiflu) 30 mg PO BID [facility] Stop: 07/01/19 10:01 Last Admin: 06/29/19 10:55 Dose: 30 mg Documented by: Potassium Chloride (K-Dur) [facility] Last Admin: 06/29/19 07:58 Dose: 20 meq Documented by: Prednisone () 40 mg PO DAILY@0800 [facility] Last Admin: 06/29/19 07:58 Dose: 40 mg Documented by: Sodium Chloride () 10 - 40 ml IV UD PRN PRN Reason: SALINE FLUSH Last Admin: 06/28/19 01:43 Dose: 10 ml Documented by: Discharge Activity: Return to Normal Activity Call your doctor if you observe: Fever of 101 or Higher, Shortness of breath Home Medications: Medications to take at Discharge Aspirin [Aspirin, Baby] 81 mg PO DAILY@0800 03/10/14 colchicine 0.6 mg capsule 0.6 mg PO DAILY cap 05/22/17 acetaminophen 500 mg tablet 500 mg PO BID PRN PRN tab 01/22/19 glimepiride 2 mg tablet 1 mg PO QAM tab 01/22/19 furosemide 40 mg tablet 40 mg PO BID #180 tab 03/14/19 metoprolol tartrate 100 mg tablet 100 mg PO BID #180 tab 03/14/19 Magnesium Oxide [Mag-Ox 400] 400 mg PO BID 06/03/19 Allopurinol [Zyloprim] 300 mg PO DAILY 06/26/19 Amiodarone HCl 100 mg PO DAILY 02/20/20 Isosorbide Mononitrate [Isosorbide Mononitrate ER] 30 mg PO QAM 06/26/19 Lisinopril 20 mg PO BID 06/26/19 Simvastatin 20 mg PO QHS 06/26/19 Tiotropium Br/Olodaterol HCl [Stiolto Respimat Inhal [place]] 2 puff IH DAILY 06/27/19 Guaifenesin [Mucinex] 1,200 mg PO BID #10 tab 06/29/19 Oseltamivir Phosphate [Tamiflu] 30 mg PO BID #5 cap 06/29/19 Potassium Chloride 20 meq PO BID #5 06/29/19 predniSONE tablet 2 tab PO DAILY@0800 #8 tab 06/29/19 Following Prescrptions Were Given to Patient: Guaifenesin [Mucinex] 1,200 mg PO BID #10 tab Transmission Status: Pending to [facility] [place] predniSONE tablet 2 tab PO DAILY@0800 #8 tab Transmission Status: Pending to [facility] [place] Oseltamivir Phosphate [Tamiflu] 30 mg PO BID #5 cap Transmission Status: Pending to [facility] [place] Other Amb Orders: Basic Metabolic Profile (BMP) Time Frame: 1 Week, Facility: [facility], Location: Laboratory Primary Care Physician: Manuel Sandoval MD [Primary Care Provider] - Within 1 Week Please Follow Up With: Rebecca Santoyo PA When: 07/24/2019, already scheduled Please Follow Up With: Riya Connolly NP-C - Pulmonology When: 2-4 weeks Patient Instructions: What Is Heart Failure?, Heart Failure: Warning Signs of a Flare-Up, Heart Failure: Tracking Your Weight, Heart Failure: Being Active, Heart Failure: Making Changes to Your Diet Medical Necessity - Tobacco Use Smoking Status: Former smoker Tobacco Use: Non-smoker Meaningful Use Info Meaningful Use Diagnoses (Choose all that apply): CHF - CHF TEOFILO/ARB ordered at discharge?: Yes Documented LVEF (%): 55 Code Visit Inpatient E&M: 28433 Disch Hosp
--- NOTE | 2019-06-30 16:45 | CASEMGMT ---
Case Management DC F/u Call: DC Date: 06/29/19 DC Diagnosis: Hypoxemia (Acute), Influenza A (Acute) DC Disposition: Home Lace/Strata: 03/09 Called patient listed home number on demographics. No answer, rings went straight to a beep-?VM but no VM recording. No VM left. Tierra Stark RNCM
== END 2019-06-29 14:32 | disposition home or self-care (01) | DRG 194 ==
LOC: ED 17:06 → PCU 23:41
PROVIDERS: Admitting Provider Hospitalist; Emergency Provider Emergency Medicine; PCP Family Medicine
DX: J10.1 Influenza due to other identified influenza virus with other respiratory manifestations (principal); E87.2 Acidosis; Z68.41 Body mass index [BMI] 40.0-44.9, adult; I13.0 Hypertensive heart and chronic kidney disease with heart failure and stage 1 through stage 4 chronic kidney disease, or unspecified chronic kidney disease; I50.22 Chronic systolic (congestive) heart failure; R09.02 Hypoxemia; I25.5 Ischemic cardiomyopathy; N18.3 Chronic kidney disease, stage 3 (moderate); E11.22 Type 2 diabetes mellitus with diabetic chronic kidney disease; Z23 Encounter for immunization; R06.89 Other abnormalities of breathing; I27.20 Pulmonary hypertension, unspecified; I89.0 Lymphedema, not elsewhere classified; E66.01 Morbid (severe) obesity due to excess calories; I73.9 Peripheral vascular disease, unspecified; I25.10 Atherosclerotic heart disease of native coronary artery without angina pectoris; E78.00 Pure hypercholesterolemia, unspecified; Z87.891 Personal history of nicotine dependence; Z95.810 Presence of automatic (implantable) cardiac defibrillator; Z95.1 Presence of aortocoronary bypass graft; Z79.84 Long term (current) use of oral hypoglycemic drugs; E11.65 Type 2 diabetes mellitus with hyperglycemia
CPT/HCPCS: 36415; 71045; 71250; 78582; 80048; 82962; 83605; 84484; 85025; 85379; 87040; 93005; 93306; 94640; 94667; 94668; 99285; A9540; A9567; G0008; Q9957; 90686; A4216

== ENCOUNTER → 2019-07-02 10:49 | Outpatient (CLI) | payer MEDICARE, SELFPAY ==
[2019-06-26 22:24] VITALS: BMI 43.5
--- NOTE | 2019-07-02 10:52 | RAD_ITS ---
STUDY: X-RAY CHEST REASON FOR EXAM: Male, 63 years old. influenza A TECHNIQUE: PA and lateral views of the chest. COMPARISON: Prior study of 06/26/2019 FINDINGS: There is a unipolar left-sided pacemaker. There is left lower lobe infiltrate and/or atelectasis. There is no demonstrated pleural abnormality. There is moderate cardiac enlargement. Status post sternotomy changes are noted. Normal mediastinum and delio. Normal visualized pulmonary arteries. There are calcified plaques of the aortic arch. Normal visualized thoracic spine. Normal visualized ribs, clavicles, and shoulders. There is no demonstrated abnormality of the visualized soft tissue structures of the upper abdomen. RAD/Chest PA and Lateral IMPRESSION: 1. Left lower lobe infiltrate and/or atelectasis, increased from the previous study. 2. Moderate cardiomegaly. Status post sternotomy. 3. Calcified plaques of the aortic arch. 4. A unipolar left-sided pacemaker is present. Electronically Signed: Ata Aguilera MD at 19:23 EST , Service support ,
== END ==
PROVIDERS: PCP Family Medicine; Referring Provider Family Medicine; Visit Provider Family Medicine
DX: J10.1 Influenza due to other identified influenza virus with other respiratory manifestations (principal)
CPT/HCPCS: 71046

== ENCOUNTER → 2019-07-17 11:29 | Outpatient (CLI) | payer MEDICARE, SELFPAY ==
[2019-06-26 22:24] VITALS: BMI 43.5
[2019-07-17 15:47] LABS: Absolute Lymphocyte Count 1.51 X10^3/uL (0.83-4.51); Absolute Neutrophil Count 5.8 X10^3/uL (2.0-7.7); Basophil# 0.02 X10^3/uL; Basophil% 0.3 % (0-1); Eosinophil# 0.08 X10^3/uL; Hematocrit 44.3 % (40-54); Hemoglobin 12.9 g/dL (13.0-16.5); Lymphocyte # 1.51 X10^3/ul (4.0); Mean Corp Hgb Conc 29.1 g/dL (32-36); Mean Corpuscular Hgb 24.2 pg (27.0-32.0); Mean Corpuscular Volume 83.1 fL (80-94); Mean Platelet Vol. 12.9 fl (6.2-12.0); Monocyte# 0.52 X10^3/uL; Monocyte% 6.6 % (0-10); NRBC Flagged by Analyzer 0 % (0-5); Neutrophil # 5.77 X10^3/uL (2.7-7.7); Neutrophil % 72.7 % (47-70); Platelet Count 151 K/mm3 (150-450); RBC Distribution Width CV 17.7 % (11.6-14.6); RBC Distribution Width SD 50.8 fl (35.1-43.9); Red Blood Count 5.33 M/mm3 (4.6-6.2); White Blood Count 7.9 K/mm3 (4.4-11.0)
[2019-07-17 16:10] LABS: ALB/GLOB Ratio 0.9 RATIO (0.9-2.4); AST(SGOT) 19 U/L (15-37); Alanine Aminotransfer ALT/SGPT 19 U/L (16-61); Albumin, Serum 3.1 g/dL (3.2-5.0); Alkaline Phosphatase 55 U/L (45-117); Anion Gap 6 (5-15); BUN 17 mg/dL (7-18); BUN/Creat Ratio 12.4 RATIO (10-20); Calcium,Total 8.7 mg/dL (8.5-10.1); Chloride 112 mmol/L (98-107); Creatinine, Serum 1.37 mg/dL (0.70-1.30); EST Glomerular Filtration Rate 56 mL/min (>60); Est Glom Filt Rate - Afr Amer 68 mL/min (>60); Globulin 3.6 g/dL (2.2-4.2); Glucose 104 mg/dL (74-106); Magnesium 1.7 mg/dL (1.6-2.6); Potassium 5.2 mmol/L (3.5-5.1); Protein, Total 6.7 g/dL (6.4-8.2); Sodium Level 142 mmol/L (136-145)
== END ==
PROVIDERS: PCP Family Medicine; Referring Provider Family Medicine; Visit Provider Family Medicine
DX: R60.0 Localized edema (principal)
CPT/HCPCS: 36415; 80053; 83735; 85025

== ENCOUNTER → 2019-07-24 11:50 | Outpatient (CLI) | payer MEDICARE, SELFPAY ==
[2019-07-24 11:17] VITALS: BMI 43.5
[2019-07-24 12:54] LABS: Rheumatoid Factor < 10.0 IU/mL (<15)
[2019-07-25 14:47] LABS: ANTINUCLEAR ANTIBODIES DIRECT Negative (Negative)
[2019-07-25 20:07] LABS: Cytoplasmic Ab (C-ANCA) <1:20 titer (Neg:<1:20)
[2019-07-25 21:36] LABS: CCP IgG Antibodies 7 units (0-19); Perinuclear Ab (P-ANCA) <1:20 titer (Neg:<1:20)
== END ==
PROVIDERS: Internal Medicine Critical Care Medicine; PCP Family Medicine; Referring Provider Nurse Practitioner Acute Care; Visit Provider Nurse Practitioner Acute Care
DX: I27.20 Pulmonary hypertension, unspecified (principal)
CPT/HCPCS: 36415; 86038; 86200; 86225; 86235; 86256; 86431

== ENCOUNTER → 2019-11-17 12:52 | Outpatient (CLI) | payer MEDICARE, SELFPAY ==
[2019-07-24 11:17] VITALS: BMI 43.5
[2019-11-17 14:16] VITALS: PULSE 67; PULSE 69; PULSE 72; PULSE 75; O2SAT 85; O2SAT 89; O2SAT 90; O2SAT 92; O2SAT 93; O2SAT 94; O2SAT 95
--- NOTE | 2019-11-17 14:19 | CPS ---
Patient states that he wears 2 lpm O2 at home at night and during the day with exertion.
--- NOTE | 2019-11-18 14:00 | PCM.PSN.6M ---
PSN 6 Minute Walk Test - 6 Minute Walk Test 6 Minute Walk Test: 6 Minute Walk Test PSN:6-Minute Walk Test Start: 11/17/19 14:15 Freq: Status: Active Protocol: [id number] Document 11/17/19 14:16 FREEDOMSAM (Rec: 11/17/19 14:20 ARASELI [id number]) 6 Minute Walk Test Date Performed 11/17/19 Time Performed 13:30 Height 5 ft 3 in Weight: 234 lb Weight in Pounds 234.[address]: Carter Melendez Assistive device used: Cane Pre-test Oxygen Delivery Method Room Air Pulse Ox (%) 90 Pulse Rate (60-100 beats/min) 67 Dyspnea Farzad Scale (0-10) 0.5 Exertion Farzad Scale (6-20) 6 1st minute Oxygen Delivery Method Room Air Pulse Ox (%) 85 Pulse Rate (60-100 beats/min) 72 2nd minute Oxygen Flow Rate (L/min) (L/min) 2 Oxygen Delivery Method Nasal Cannula Pulse Ox (%) 89 Pulse Rate (60-100 beats/min) 72 3rd minute Oxygen Flow Rate (L/min) (L/min) 2 Oxygen Delivery Method Nasal Cannula Pulse Ox (%) 92 Pulse Rate (60-100 beats/min) 72 4th minute Oxygen Flow Rate (L/min) (L/min) 2 Oxygen Delivery Method Nasal Cannula Pulse Ox (%) 93 Pulse Rate (60-100 beats/min) 75 5th minute Oxygen Flow Rate (L/min) (L/min) 2 Oxygen Delivery Method Nasal Cannula Pulse Ox (%) 94 Pulse Rate (60-100 beats/min) 75 6th minute Oxygen Flow Rate (L/min) (L/min) 2 Oxygen Delivery Method Nasal Cannula Pulse Ox (%) 94 Pulse Rate (60-100 beats/min) 75 Dyspnea Farzad Scale (0-10) 3 Exertion Farzad Scale (6-20) 12 Post-test Oxygen Flow Rate (L/min) (L/min) 2 Oxygen Delivery Method Nasal Cannula Pulse Ox (%) 95 Pulse Rate (60-100 beats/min) 69 Full Laps Walked 10 Partial Lap, Number of Tiles Walked 15 Total Distance Walked (ft) 605 11/17/19 14:19 Cardiopulmonary Services by Chastity Ramey Patient states that he wears 2 lpm O2 at home at night and during the day with exertion. Initialized on 11/17/19 14:19 - END OF NOTE - Interpretation Interpretation: The patient ambulated 605 feet over the course of 6 minutes beginning on room air with the use of a cane. Pretesting oxygen saturation was noted to be 90% on room air. With ambulation, the mary oxygen saturation was 85%. 2 L/min of supplemental oxygen was applied, and the patient was able to complete the remainder of the testing while maintaining appropriate oxygen saturations. - Recommendations Recommendations: 2 L/min of supplemental oxygen should be utilized with exertion.
== END ==
PROVIDERS: PCP Family Medicine; Referring Provider Internal Medicine Critical Care Medicine; Visit Provider Internal Medicine Critical Care Medicine
DX: I27.20 Pulmonary hypertension, unspecified (principal)
CPT/HCPCS: 94618

== ENCOUNTER → 2019-11-28 12:50 | Outpatient (CLI) | payer MEDICARE, SELFPAY ==
[2019-07-24 11:17] VITALS: BMI 43.5
[2019-11-27 13:36] VITALS: BMI 44.4
--- NOTE | 2019-11-28 14:17 | PFTCOMP_ITS ---
COMPLETE PULMONARY FUNCTION TEST INTERPRETATION Brief HPI: Patient is a 63 year old male, currently under the care of myself, who presents to [facility] for complete pulmonary function tests secondary to diagnosis of pulmonary hypertension. Respiratory therapist reports good effort and reproducible results. Interpretation: Forced expiration spirometry shows no large airways obstructive ventilatory defect with an FEV1 of 44% predicted. There is no significant bronchodilator response by strict ATS criteria. Spirograms are of good quality and plateau normally. The respiratory flow volume loop shows a normal pattern. Lung volumes by body plethysmography show a decreased total lung capacity at 3.27 L, 73% predicted. FRC and RV are elevated out of proportion. Lung volume measurements are consistent with air-trapping. Diffusion capacity by carbon monoxide is decreased at 59% predicted. The airway resistance is normal. Compared to previous pulmonary function tests from 06/14/2017, there is been a significant decrease in FVC and FEV1 by 13% and 19% respectively. Impression: Severe mixed ventilatory defect with a symmetric reduction diffusion capacity and some worsening compared to 2018.
== END ==
PROVIDERS: PCP Family Medicine; Referring Provider Internal Medicine Critical Care Medicine; Visit Provider Internal Medicine Critical Care Medicine
DX: I27.20 Pulmonary hypertension, unspecified (principal)
CPT/HCPCS: 94060; 94726; 94729

== ENCOUNTER 2019-12-04 15:00 | Outpatient (RCR) | payer MEDICARE, SELFPAY ==
[2019-07-24 11:17] VITALS: BMI 43.5
[2019-11-27 13:36] VITALS: BP 129/75; PULSE 71; RESP 22; TEMP 36.7; BMI 44.4
--- NOTE | 2019-11-27 16:01 | PCM.WC.HP ---
(1) Venous stasis ulcer of right lower extremity Status: Acute Current Visit: Yes Code(s): I83.019 - Varicose veins of right lower extremity with ulcer of unspecified site; L97.919 - Non-pressure chronic ulcer of unspecified part of right lower leg with unspecified severity (2) Venous stasis ulcer of left lower extremity Status: Acute Current Visit: Yes Code(s): I83.029 - Varicose veins of left lower extremity with ulcer of unspecified site; L97.929 - Non-pressure chronic ulcer of unspecified part of left lower leg with unspecified severity (3) Atherosclerosis of coronary artery bypass graft without angina pectoris Status: Chronic Current Visit: No Qualifiers: Code(s): I25.810 - Atherosclerosis of coronary artery bypass graft(s) without angina pectoris Comment: CABG x6 ; Internal Mammary to Anterior Descending, SVG to diag branch of the Anterior descending,SVG to the lateral & posteriorlateral CX, SVG to Posterior Descending and continuation branches of the RCA 02/27/03 (4) Bilateral lower extremity edema Status: Chronic Current Visit: No Code(s): R60.0 - Localized edema (5) CAD (coronary artery disease) Status: Chronic Current Visit: No Code(s): I25.10 - Atherosclerotic heart disease of [place] coronary artery without angina pectoris (6) Chronic kidney disease (CKD) Status: Chronic Current Visit: No Code(s): N18.9 - Chronic kidney disease, unspecified (7) Chronic systolic congestive heart failure Status: Chronic Current Visit: No Code(s): I50.22 - Chronic systolic (congestive) heart failure (8) Essential hypertension Status: Chronic Current Visit: No Code(s): I10 - Essential (primary) hypertension (9) Lymphedema Status: Chronic Current Visit: No Code(s): I89.0 - Lymphedema, not elsewhere classified (10) Morbid obesity with BMI of 40.0-44.9, adult Status: Chronic Current Visit: No Code(s): E66.01 - Morbid (severe) obesity due to excess calories; Z68.41 - Body mass index (BMI) 40.0-44.9, adult (11) PVD (peripheral vascular disease) Status: Chronic Current Visit: No Code(s): I73.9 - Peripheral vascular disease, unspecified (12) Pulmonary hypertension Status: Chronic Current Visit: No Code(s): I27.20 - Pulmonary hypertension, unspecified (13) Type 2 diabetes mellitus Status: Chronic Current Visit: No Code(s): E11.9 - Type 2 diabetes mellitus without complications (14) 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 There is a mild language barrier, and no translation is available at initial appointment. The patient reports that he has had swelling in his bilateral lower extremities for many years, as well as lymphedema. He is originally from [facility], and reports moving to the about 25 years ago. He reports his swelling has gotten worse in the last few months with now open wounds to his lower extremities for the last couple of months as well. He has been using triple antibiotic ointment to both legs, and wrapping with Kerlix. He has not been using any compression, he states that he followed up with the lymphedema clinic in the past and that they have provided him with compression that was too difficult to use. Patient has a PMH significant for type 2 diabetes mellitus, morbid obesity, CHF, pulmonary hypertension, NH, ischemic cardiomyopathy, and hyperlipidemia. He is currently managed by Dr. Sandoval at [facility] as his PCP. He is ambulatory with a cane. He does report living with family at home, who can aid in his care as needed. He denies any other acute concerns. He denies any systemic signs of infection at this time. Past Medical History Past Medical History: Chronic Problems (Last Reviewed 07/24/19 @ 10:59 by Maureen Dove) Morbid obesity with BMI of 40.0-44.9, adult (Chronic) Bilateral lower extremity edema (Chronic) PVD (peripheral vascular disease) (Chronic) Lymphedema (Chronic) Excoriation of left lower leg (Chronic) CAD (coronary artery disease) (Chronic) Chronic kidney disease (CKD) (Chronic) Type 2 diabetes mellitus (Chronic) Essential hypertension (Chronic) Pure hypercholesterolemia (Chronic) Atherosclerosis of coronary artery bypass graft without angina pectoris (Chronic) CABG x6 ; Internal Mammary to Anterior Descending, SVG to diag branch of the Anterior descending,SVG to the lateral & posteriorlateral CX, SVG to Posterior Descending and continuation branches of the RCA 02/27/03 Chronic systolic congestive heart failure (Chronic) Ischemic cardiomyopathy (Chronic) Pulmonary hypertension (Chronic) Presence of cardiac defibrillator (Chronic ~08/2004) Old myocardial infarction (Chronic) Surgical History: coronary bypass surgery, - - AICD Allergies/Adverse Reactions: Allergies No Known Allergies Allergy (Verified 07/24/19 10:59) Home Medications: Ambulatory Orders Medication Instructions Recorded Aspirin [Aspirin, Baby] 81 mg PO DAILY@0800 03/10/14 colchicine 0.6 mg capsule 0.6 mg PO DAILY cap 05/22/17 furosemide 40 mg tablet 40 mg PO BID #180 tab 03/14/19 metoprolol tartrate 100 mg tablet 100 mg PO BID #180 tab 03/14/19 Magnesium Oxide [Mag-Ox 400] 400 mg PO BID 06/03/19 Allopurinol [Zyloprim] 300 mg PO DAILY 06/26/19 Amiodarone HCl 100 mg PO DAILY 06/26/19 Isosorbide Mononitrate [Isosorbide 30 mg PO QAM 06/26/19 Mononitrate ER] Lisinopril 20 mg PO BID 06/26/19 Simvastatin 20 mg PO QHS 06/26/19 predniSONE tablet 2 tab PO DAILY@0800 #8 tab 06/29/19 Metformin HCl 1,000 mg PO BID 11/27/19 Spironolactone 50 mg DAILY 11/27/19 - Family History Maternal Family History: Family History (Last Reviewed 07/24/19 @ 10:59 by Maureen Dove) Mother Hypertension Sister Hypertension No pertinent history Smoking Status: Former smoker Review of Systems Constitutional: Denies: Chills, Fever, Weight Change Eyes: Denies: Pain, Vision Change HEENT: Denies: Difficulty Hearing, Difficulty Swallowing, Sinus Congestion Cardiovascular: Denies: Chest Pain, Palpitations Respiratory: Denies: Cough, Shortness of Breath Gastrointestinal: Denies: Diarrhea, Nausea, Vomiting Genitourinary: Denies: Dysuria, Hematuria Skin: Reports: Wounds - See HPI Endocrine: Denies: Heat/ Cold Intolerance, Polydipsia, Polyuria Hematologic/ Lymphatic: Denies: Easy Bruising, Easy Bleeding - Physical Exam Vital Signs Temp Pulse Resp BP 98.1 F 71 22 H 129/75 H 11/27/19 13:36 11/27/19 13:36 11/27/19 13:36 11/27/19 13:36 General: Alert, Oriented x3, Cooperative, No apparent distress, - - Language barrier HEENT: Atraumatic Oral: Moist Mucosa Lungs: Clear to auscultation, Normal air movement Cardiovascular: Regular rate, Regular Rhythm Abdomen: Soft, Non Tender Extremities: No clubbing, No cyanosis, Edema - Lymphedema present bilateral lower extremity with multiple areas of hypertrophied thickened skin Skin: Ulcer/ Wound - Large ulcer to right lower extremity with large amount of adherent slough, extremely large ulcer to left lower extremity which is circumferential and has very large amount of slough and is macerated and many areas. Wound Measurements and Assessment WC - Nurse 1 - General Ulcer Measurement Start: 11/27/19 13:35 Freq: Status: Active Protocol: Activity Type Activity Date Activity User E-Sign Co-Sign Detail Recorded Client Recorded Date Recorded By Document 11/27/19 13:36 DL [id number] 11/27/19 13:58 DL 11/27/19 13:36 Wound Center Nurse 1 [Ulcer Assessment] #4 LLE Circ -Current Size (cm) - Length 20 -Current Size (cm) - Width 46 -Current Size (cm) - Depth 0.1 -Total Square Cm 920 -Classification - Thickness Full Thickness without Exposed Support Structure -Exudate Amt Medium -Exudate Type Serosanguineous -Wound Margin Indistinct, Non -Visible -Granulation Amt Medium (34-66%) -Granulation Quality Hyper- granulation,Red -Necrosis Amt Medium (34-66%) -Necrotic Tissue Type Adherent Slough -Structure Exposed N/A -Texture (Nicolle-wound Skin Appearance) Localized Edema ,Scarring -Moisture (Nicolle-wound Skin Appearance Maceration, ) Weeping -Color (Nicolle-wound Skin Appearance) Erythema, Hemosiderin Staining -Temperature (Nicolle-wound Skin No Abnormality Appearance) (Pt Warm) -Tenderness on Palpation (Nicolle-wound Yes Skin Appearance) -Ulcer Cleansing Wound Cleanser -Foul Odor after Cleansing No -Anesthetic Used 4% Lidocaine Solution #3 RLE Med -Current Size (cm) - Length 1.8 -Current Size (cm) - Width 3 -Current Size (cm) - Depth 0.1 -Total Square Cm 5.4 -Photo Taken Yes -Classification - Thickness Full Thickness without Exposed Support Structure -Exudate Amt Medium -Exudate Type Serosanguineous -Wound Margin Indistinct, Non -Visible -Granulation Amt Medium (34-66%) -Granulation Quality Hyper- granulation, [place] -Necrosis Amt Medium (34-66%) -Necrotic Tissue Type Adherent Slough -Structure Exposed N/A -Texture (Nicolle-wound Skin Appearance) Localized Edema ,Scarring -Moisture (Nicolle-wound Skin Appearance Maceration, ) Weeping -Color (Nicolle-wound Skin Appearance) Hemosiderin Staining -Temperature (Nicolle-wound Skin No Abnormality Appearance) (Pt Warm) -Tenderness on Palpation (Nicolle-wound Yes Skin Appearance) -Ulcer Cleansing Wound Cleanser -Foul Odor after Cleansing No -Anesthetic Used 4% Lidocaine Solution [Edema Assessment] -Right Calf (cm) 51 -Right Ankle (cm) 34 -Left Calf (cm) 49 -Left Ankle (cm) 34.7 Neurological: Cranial nerves II-XII grossly intact, Neuro grossly intact Psych/Mental Status: Normal Affect, Appropriate, Alert and oriented to time, place, person, mood and affect Debridement Note Wound debrided: Bilateral venous leg ulcers Type of Debridement: Excisional debridement Anesthesia Used: 5% Lidocaine Gel Depth: in the subcutaneous layer Percentage of wound debrided: 100 Instrument Used: 5mm curette, 7mm curette Tissue Removed: Large amounts of slough and devitalized tissue Severity: Fat Layer Exposed Amount of bleeding with debridement: Mild Bleeding Controlled with: Pressure, Compression and gauze Patient tolerated procedure well Assessment/Plan Active Problems (Last Reviewed 07/24/19 @ 10:59 by Maueren Dove) Venous stasis ulcer of right lower extremity (Acute) Venous stasis ulcer of left lower extremity (Acute) Assessment: Venous leg ulcers bilateral lower extremities. Lymphatic filariasis, chronic, suspected. Lymphedema, chronic. Bilateral lower extremity edema, chronic. PVD, chronic. Morbid obesity, chronic Plan: The patient was seen and examined at the wound center today and was updated on the plan of care. A subcutaneous debridement was performed today. The patient tolerated the procedure well. The patients wound care will consist of: Application of silver cell to all open ulcers and then bilateral Unna boots over top for compression. Wound cultures and blood work held at this time. Vascular studies as dictated below. Patient educated on the importance of diet on wound healing and instructed to increase protein and vitamin C intake. Patient verbalized understanding. Patient will follow up at wound healing center in one week or sooner if needed. Patient has been advised to elevate lower extremities as much as possible. Elevation is to be implemented during daytime hours and legs are to be elevated to heart level, or higher, as much as possible. Prolonged idle sitting has been discouraged. Activity and ambulation has been encouraged. Patient referred back to the lymphedema clinic. For his chronic nonhealing wounds since he has failed standard wound care therapy and his wounds are greater than 4 weeks will apply for advanced skin substitute. Venous Doppler study completed 06/03/2019: Right great saphenous vein is absent, having been previously harvested; left great saphenous vein incompetent below the knee; right accessory saphenous vein and right mid calf is incompetent; otherwise normal venous Doppler study, see full report for further details. Arterial studies completed 06/03/2019: No evidence of significant arterial occlusive disease in bilateral lower extremities, see full report for further details. Note: [employer] speech recognition business center attendant software was used to create portions of this document. Sound-alike and misspelled words, as well as other business center attendant errors may be contained in the documentation. Office Visits / Consults: [id number] OV L4 Est [id number]: [id number] Karyna subq tissue 20 sq cm/< Add On Codes: 76839 Karyna subq tissue add-on
[2019-12-01 17:52] VITALS: BP 130/76; PULSE 72; RESP 18; TEMP 36.9; BMI 44.4
[2019-12-04 15:13] VITALS: BP 137/74; PULSE 75; RESP 22; TEMP 37.1; BMI 44.4
--- NOTE | 2019-12-04 21:30 | PCM.WC.PN ---
(1) Venous stasis ulcer of right lower extremity Status: Acute Code(s): I83.019 - Varicose veins of right lower extremity with ulcer of unspecified site; L97.919 - Non-pressure chronic ulcer of unspecified part of right lower leg with unspecified severity (2) Venous stasis ulcer of left lower extremity Status: Acute Code(s): I83.029 - Varicose veins of left lower extremity with ulcer of unspecified site; L97.929 - Non-pressure chronic ulcer of unspecified part of left lower leg with unspecified severity (3) Atherosclerosis of coronary artery bypass graft without angina pectoris Status: Chronic Qualifiers: Code(s): I25.810 - Atherosclerosis of coronary artery bypass graft(s) without angina pectoris Comment: CABG x6 ; Internal Mammary to Anterior Descending, SVG to diag branch of the Anterior descending,SVG to the lateral & posteriorlateral CX, SVG to Posterior Descending and continuation branches of the RCA 02/27/03 (4) Bilateral lower extremity edema Status: Chronic Code(s): R60.0 - Localized edema (5) CAD (coronary artery disease) Status: Chronic Code(s): I25.10 - Atherosclerotic heart disease of [place] coronary artery without angina pectoris (6) Chronic kidney disease (CKD) Status: Chronic Code(s): N18.9 - Chronic kidney disease, unspecified (7) Chronic systolic congestive heart failure Status: Chronic Code(s): I50.22 - Chronic systolic (congestive) heart failure (8) Essential hypertension Status: Chronic Code(s): I10 - Essential (primary) hypertension (9) Lymphedema Status: Chronic Code(s): I89.0 - Lymphedema, not elsewhere classified (10) Morbid obesity with BMI of 40.0-44.9, adult Status: Chronic Code(s): E66.01 - Morbid (severe) obesity due to excess calories; Z68.41 - Body mass index (BMI) 40.0-44.9, adult (11) PVD (peripheral vascular disease) Status: Chronic Code(s): I73.9 - Peripheral vascular disease, unspecified (12) Pulmonary hypertension Status: Chronic Code(s): I27.20 - Pulmonary hypertension, unspecified (13) Type 2 diabetes mellitus Status: Chronic Code(s): E11.9 - Type 2 diabetes mellitus without complications (14) 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 There is a mild language barrier, and no translation is available at initial appointment. The patient reports that he has had swelling in his bilateral lower extremities for many years, as well as lymphedema. He is originally from [facility], and reports moving to the about 25 years ago. He reports his swelling has gotten worse in the last few months with now open wounds to his lower extremities for the last couple of months as well. He has been using triple antibiotic ointment to both legs, and wrapping with Kerlix. He has not been using any compression, he states that he followed up with the lymphedema clinic in the past and that they have provided him with compression that was too difficult to use. Patient has a PMH significant for type 2 diabetes mellitus, morbid obesity, CHF, pulmonary hypertension, ID, ischemic cardiomyopathy, and hyperlipidemia. He is currently managed by Dr. Sandoval at [facility] as his PCP. He is ambulatory with a cane. He does report living with family at home, who can aid in his care as needed. He denies any other acute concerns. He denies any systemic signs of infection at this time. Progress of Wound: 12/04/19-wounds are improving in size, did well with unna boots, will trial 3m wraps and change in 3-4 days - Physical Exam Vital Signs Temp Pulse Resp BP 98.8 F 75 22 H 137/74 H 12/04/19 15:13 12/04/19 15:13 12/04/19 15:13 12/04/19 15:13 General: Alert, Oriented x3, Cooperative, No apparent distress HEENT: Atraumatic Oral: Moist Mucosa Lungs: Clear to auscultation, Normal air movement Cardiovascular: Regular rate, Regular Rhythm Abdomen: Soft, Non Tender Extremities: No clubbing, No cyanosis, Edema - +2 pitting bilateral lower extremity edema Skin: Ulcer/ Wound - see nursing documentation, slough and devitalized tissue present to lower extremity ulcers, no signs of infection at this time Wound Measurements and Assessment WC - Nurse 1 - General Ulcer Measurement Start: 11/27/19 13:35 Freq: Status: Active Protocol: Activity Type Activity Date Activity User E-Sign Co-Sign Detail Recorded Client Recorded Date Recorded By Document 12/04/19 15:13 DL [id number] 12/04/19 15:30 DL 12/04/19 15:13 Wound Center Nurse 1 [Ulcer Assessment] #4 LLE Circ -Current Size (cm) - Length 18 -Current Size (cm) - Width 44.5 -Current Size (cm) - Depth 0.1 -Total Square Cm 801.0 -Photo Taken No -Exudate Amt Large -Exudate Type Serosanguineous -Wound Margin Indistinct, Non -Visible -Granulation Amt Medium (34-66%) -Granulation Quality Red -Necrosis Amt Medium (34-66%) -Necrotic Tissue Type Adherent Slough -Structure Exposed N/A -Texture (Nicolle-wound Skin Appearance) Localized Edema ,Scarring -Moisture (Nicolle-wound Skin Appearance Maceration ) -Color (Nicolle-wound Skin Appearance) Hemosiderin Staining -Temperature (Nicolle-wound Skin No Abnormality Appearance) (Pt Warm) -Ulcer Cleansing Wound Cleanser -Foul Odor after Cleansing No -Anesthetic Used 4% Lidocaine Solution #3 RLE Med -Current Size (cm) - Length 3 -Current Size (cm) - Width 3.7 -Current Size (cm) - Depth 0.1 -Total Square Cm 11.1 -Photo Taken No -Exudate Amt Medium -Exudate Type Serosanguineous -Wound Margin Distinct, Outline Attached -Granulation Amt Medium (34-66%) -Granulation Quality Red -Necrosis Amt Medium (34-66%) -Necrotic Tissue Type Adherent Slough -Structure Exposed N/A -Texture (Nicolle-wound Skin Appearance) Scarring -Moisture (Nicolle-wound Skin Appearance Dry/Scaly ) -Color (Nicolle-wound Skin Appearance) Hemosiderin Staining -Temperature (Nicolle-wound Skin No Abnormality Appearance) (Pt Warm) -Tenderness on Palpation (Nicolle-wound No Skin Appearance) -Ulcer Cleansing Wound Cleanser -Foul Odor after Cleansing No -Anesthetic Used 4% Lidocaine Solution [Edema Assessment] -Right Calf (cm) 49 -Right Ankle (cm) 35 -Left Calf (cm) 47 -Left Ankle (cm) 33.5 WC - Nurse 2 - General Ulcer CM Notes Start: 11/27/19 13:35 Freq: Status: Active Protocol: Activity Type Activity Date Activity User E-Sign Co-Sign Detail Recorded Client Recorded Date Recorded By Document 12/04/19 15:49 MW [id number] 12/04/19 15:54 MW 12/04/19 15:49 Wound Center Nurse 2 [Procedure/Treatment] #4 LLE Circ -Time 15:49 -Correct Patient Yes -Correct Side, Site, Position Yes -Correct Procedure Yes -Procedure Performed Yes -Type of Procedure Debridement -Clinical Debridement Subcutaneous -Post Debridement Size (cm) - Length 19.5 -Post Debridement Size (cm) - Width 45.0 -Post Debridement Size (cm) - Depth 0.1 -Total Square (cm) 877.50 -Wound/Ulcer Outcome Not Healed -Ulcer Cleansing Rinsed/ Irrigated with Saline -Foul Odor after Cleansing No -Bioengineered Tissue No -Bleeding Controlled with Pressure -Offloading No -Treatment Response Procedure Tolerated Well #3 RLE Med -Time 15:50 -Correct Patient Yes -Correct Side, Site, Position Yes -Correct Procedure Yes -Procedure Performed Yes -Type of Procedure Debridement -Clinical Debridement Subcutaneous -Post Debridement Size (cm) - Length 3.0 -Post Debridement Size (cm) - Width 3.6 -Post Debridement Size (cm) - Depth 0.1 -Total Square (cm) 10.80 -Wound/Ulcer Outcome Not Healed -Ulcer Cleansing Rinsed/ Irrigated with Saline -Foul Odor after Cleansing No -Bioengineered Tissue No -Bleeding Controlled with Pressure -Offloading No -Treatment Response Procedure Tolerated Well [See Physician Procedure note for Specifics] Pain Scale: 0-10 Numeric [Pain] -Is Patient Pain Free? Yes Neurological: Neuro grossly intact Psych/Mental Status: Normal Affect, Appropriate Debridement Note Post-Debridement Measurements/Treatment WC - Nurse 2 - General Ulcer CM Notes Start: 11/27/19 13:35 Freq: Status: Active Protocol: Activity Type Activity Date Activity User E-Sign Co-Sign Detail Recorded Client Recorded Date Recorded By Document 11/27/19 16:00 PL [id number] 11/27/19 16:03 PL Document 12/04/19 15:49 MW [id number] 12/04/19 15:54 MW 11/27/19 12/04/19 16:00 15:49 Wound Center Nurse 2 #4 LLE Circ -Time 14:25 15:49 -Correct Patient Yes Yes -Correct Side, Site, Position Yes Yes -Correct Procedure Yes Yes -Procedure Performed Yes Yes -Type of Procedure Debridement Debridement -Clinical Debridement Subcutaneous Subcutaneous -Post Debridement Size (cm) - Length 20 19.5 -Post Debridement Size (cm) - Width 46 45.0 -Post Debridement Size (cm) - Depth 0.1 0.1 -Total Square (cm) 920 877.50 -Wound/Ulcer Outcome Not Healed Not Healed -Ulcer Cleansing Rinsed/ Rinsed/ Irrigated with Irrigated with Saline Saline -Foul Odor after Cleansing No No -Bioengineered Tissue No -Bleeding Controlled with Pressure Pressure -Offloading No -Treatment Response Procedure Procedure Tolerated Well Tolerated Well #3 RLE Med -Time 14:25 15:50 -Correct Patient Yes Yes -Correct Side, Site, Position Yes Yes -Correct Procedure Yes Yes -Procedure Performed Yes Yes -Type of Procedure Debridement Debridement -Clinical Debridement Subcutaneous Subcutaneous -Post Debridement Size (cm) - Length 1.6 3.0 -Post Debridement Size (cm) - Width 2 3.6 -Post Debridement Size (cm) - Depth 0.1 0.1 -Total Square (cm) 3.2 10.80 -Wound/Ulcer Outcome Not Healed Not Healed -Ulcer Cleansing Rinsed/ Rinsed/ Irrigated with Irrigated with Saline Saline -Foul Odor after Cleansing No No -Bioengineered Tissue No -Bleeding Controlled with Pressure Pressure -Offloading No -Treatment Response Procedure Procedure Tolerated Well Tolerated Well Pain Scale: 0-10 Numeric Is Patient Pain Free? Yes Yes Wound debrided: Bilateral lower extremity ulcers Type of Debridement: Excisional debridement Depth: Down to and including healthy tissue, in the subcutaneous layer Percentage of wound debrided: 100 Instrument Used: 5mm curette, 7mm curette Tissue Removed: slough and devitalized tissue Severity: Fat Layer Exposed Amount of bleeding with debridement: Mild Bleeding Controlled with: Pressure Patient tolerated procedure well Assessment/Plan Assessment: Venous leg ulcers bilateral lower extremities. Lymphatic filariasis, chronic, suspected. Lymphedema, chronic. Bilateral lower extremity edema, chronic. PVD, chronic. Morbid obesity, chronic Plan: The patient was seen and examined at the wound center today and was updated on the plan of care. A subcutaneous debridement was performed today. The patient tolerated the procedure well. The patients wound care will consist of: Application of silver cell to all open ulcers and then bilateral 3m wraps over top for compression. Change in 3-4 days. Wound cultures and blood work held at this time. Vascular studies as dictated below. Patient educated on the importance of diet on wound healing and instructed to increase protein and vitamin C intake. Patient verbalized understanding. Patient will follow up at wound healing center in one week or sooner if needed. Patient has been advised to elevate lower extremities as much as possible. Elevation is to be implemented during daytime hours and legs are to be elevated to heart level, or higher, as much as possible. Prolonged idle sitting has been discouraged. Activity and ambulation has been encouraged. Patient referred back to the lymphedema clinic. For his chronic nonhealing wounds since he has failed standard wound care therapy and his wounds are greater than 4 weeks will apply for advanced skin substitute. Venous Doppler study completed 06/03/2019: Right great saphenous vein is absent, having been previously harvested; left great saphenous vein incompetent below the knee; right accessory saphenous vein and right mid calf is incompetent; otherwise normal venous Doppler study, see full report for further details. Arterial studies completed 06/03/2019: No evidence of significant arterial occlusive disease in bilateral lower extremities, see full report for further details. Note: [employer] speech recognition catering administrative assistant software was used to create portions of this document. Sound-alike and misspelled words, as well as other catering administrative assistant errors may be contained in the documentation. [id number]: [id number] Karyna subq tissue 20 sq cm/<
== END 2019-12-05 23:59 ==
LOC: WC 15:00
PROVIDERS: PCP Family Medicine; Referring Provider Nurse Practitioner Family; Visit Provider Nurse Practitioner Family
DX: I83.028 Varicose veins of left lower extremity with ulcer other part of lower leg (principal); L97.822 Non-pressure chronic ulcer of other part of left lower leg with fat layer exposed; I83.018 Varicose veins of right lower extremity with ulcer other part of lower leg; L97.812 Non-pressure chronic ulcer of other part of right lower leg with fat layer exposed; I25.10 Atherosclerotic heart disease of native coronary artery without angina pectoris; Z95.1 Presence of aortocoronary bypass graft; R60.0 Localized edema; N18.9 Chronic kidney disease, unspecified; I50.22 Chronic systolic (congestive) heart failure; I89.0 Lymphedema, not elsewhere classified; I13.0 Hypertensive heart and chronic kidney disease with heart failure and stage 1 through stage 4 chronic kidney disease, or unspecified chronic kidney disease; E66.01 Morbid (severe) obesity due to excess calories; Z68.41 Body mass index [BMI] 40.0-44.9, adult; I27.20 Pulmonary hypertension, unspecified; E11.22 Type 2 diabetes mellitus with diabetic chronic kidney disease; E78.00 Pure hypercholesterolemia, unspecified; Z95.810 Presence of automatic (implantable) cardiac defibrillator; I25.2 Old myocardial infarction; Z79.82 Long term (current) use of aspirin; Z79.899 Other long term (current) drug therapy; Z79.52 Long term (current) use of systemic steroids; Z79.84 Long term (current) use of oral hypoglycemic drugs
CPT/HCPCS: 11042; 11045; 29580; 29581; 99212; G0463

== ENCOUNTER → 2019-12-05 09:43 | Outpatient (CLI) | payer MEDICARE, SELFPAY ==
[2019-12-04 15:29] VITALS: BMI 44.7
[2019-12-05 12:19] LABS: Absolute Lymphocyte Count 1.84 X10^3/uL (0.83-4.51); Absolute Neutrophil Count 6.1 X10^3/uL (2.0-7.7); Basophil# 0.03 X10^3/uL; Basophil% 0.3 % (0-1); Eosinophil# 0.26 X10^3/uL; Eosinophils% 2.9 % (0-5); Hematocrit 38.1 % (40-54); Hemoglobin 11.3 g/dL (13.0-16.5); Lymphocyte # 1.84 X10^3/ul (4.0); Lymphocyte % 20.7 % (19-41); Mean Corp Hgb Conc 29.7 g/dL (32-36); Mean Corpuscular Hgb 25.7 pg (27.0-32.0); Mean Corpuscular Volume 86.8 fL (80-94); Mean Platelet Vol. 10.7 fl (6.2-12.0); Monocyte# 0.63 X10^3/uL; Monocyte% 7.1 % (0-10); NRBC Flagged by Analyzer 0 % (0-5); Neutrophil # 6.06 X10^3/uL (2.7-7.7); Neutrophil % 68.3 % (47-70); Platelet Count 250 K/mm3 (150-450); RBC Distribution Width CV 15.9 % (11.6-14.6); RBC Distribution Width SD 50.2 fl (35.1-43.9); Red Blood Count 4.39 M/mm3 (4.6-6.2); White Blood Count 8.9 K/mm3 (4.4-11.0)
[2019-12-05 12:30] LABS: ALB/GLOB Ratio 0.8 RATIO (0.9-2.4); AST(SGOT) 38 U/L (15-37); Alanine Aminotransfer ALT/SGPT 32 U/L (16-61); Albumin, Serum 3.3 g/dL (3.2-5.0); Alkaline Phosphatase 95 U/L (45-117); Anion Gap 5 (5-15); BUN 31 mg/dL (7-18); BUN/Creat Ratio 18.6 RATIO (10-20); Calcium,Total 8.9 mg/dL (8.5-10.1); Chloride 104 mmol/L (98-107); Creatinine, Serum 1.67 mg/dL (0.70-1.30); EST Glomerular Filtration Rate 44 mL/min (>60); Est Glom Filt Rate - Afr Amer 54 mL/min (>60); Globulin 3.9 g/dL (2.2-4.2); Glucose 100 mg/dL (74-106); Protein, Total 7.2 g/dL (6.4-8.2); Sodium Level 140 mmol/L (136-145)
== END ==
PROVIDERS: PCP Family Medicine; Referring Provider Family Medicine; Visit Provider Family Medicine
DX: N18.3 Chronic kidney disease, stage 3 (moderate) (principal)
CPT/HCPCS: 36415; 80053; 85025

== ENCOUNTER → 2019-12-17 13:18 | Outpatient (CLI) | payer MEDICARE, SELFPAY ==
[2019-12-04 15:29] VITALS: BMI 44.7
[2019-12-15 10:24] VITALS: BMI 44.7
--- NOTE | 2019-12-17 13:19 | CT_ITS ---
STUDY: CT CHEST WITHOUT CONTRAST REASON FOR EXAM: Male, 63 years old. SOB.? CHF and hx of CABG RADIATION DOSAGE (If Supplied By Facility): CTDIvol = ( 14.80 ) mGy, DLP = ( 402.93 ) mGycm TECHNIQUE: Transaxial imaging was performed without the administration of intravenous contrast material. Multiplanar coronal and sagittal images were reformatted. Individualized dose optimization techniques were used for this CT. COMPARISON: Comparison is made with prior study dated 06/26/2019. FINDINGS: Stable mild increased markings at the lung bases. Minimal left pleural thickening. Normal heart and pericardium. A left-sided dual-chamber pacemaker is seen. Prior CABG. Coronary artery calcification. Moderate degree of cardiomegaly. There are multiple small lymph nodes within the mediastinum, which are normal in size and morphology most compatible with reactive lymph hyperplasia. Normal hilar regions. Normal unenhanced pulmonary arteries. Normal aorta arch and descending thoracic aorta. There are multi-level degenerative changes of the thoracic spine. Prior cholecystectomy. CT/Chest without Contrast IMPRESSION: Stable mild increased markings at the lung bases. Minimal left pericardial thickening. Electronically Signed: Frank Harrington, at 14:41 EDT , Service support ,
== END ==
PROVIDERS: PCP Family Medicine; Referring Provider Nurse Practitioner Acute Care; Visit Provider Nurse Practitioner Acute Care
DX: R06.02 Shortness of breath (principal)
CPT/HCPCS: 71250

== ENCOUNTER 2020-01-01 12:30 | Outpatient (RCR) | payer MEDICARE, SELFPAY ==
[2019-12-04 15:29] VITALS: BMI 44.7
[2019-12-06 00:42] VITALS: BP 137/74; PULSE 75; RESP 22; TEMP 37.1
[2019-12-08 08:43] VITALS: BP 125/75; PULSE 81; RESP 22; TEMP 37; BMI 44.7
[2019-12-11 13:58] VITALS: RESP 22; TEMP 36.6; BMI 44.7
--- NOTE | 2019-12-11 19:08 | PN.PCM_ITS ---
(1) Venous stasis ulcer of left lower extremity Status: Acute Current Visit: Yes Code(s): I83.029 - Varicose veins of left lower extremity with ulcer of unspecified site; L97.929 - Non-pressure chronic ulcer of unspecified part of left lower leg with unspecified severity (2) Venous stasis ulcer of right lower extremity Status: Acute Current Visit: Yes Code(s): I83.019 - Varicose veins of right lower extremity with ulcer of unspecified site; L97.919 - Non-pressure chronic ulcer of unspecified part of right lower leg with unspecified severity (3) Atherosclerosis of coronary artery bypass graft without angina pectoris Status: Chronic Current Visit: No Qualifiers: Code(s): I25.810 - Atherosclerosis of coronary artery bypass graft(s) without angina pectoris Comment: CABG x6 ; Internal Mammary to Anterior Descending, SVG to diag branch of the Anterior descending,SVG to the lateral & posteriorlateral CX, SVG to Posterior Descending and continuation branches of the RCA 02/27/03 (4) Bilateral lower extremity edema Status: Chronic Current Visit: No Code(s): R60.0 - Localized edema (5) CAD (coronary artery disease) Status: Chronic Current Visit: No Code(s): I25.10 - Atherosclerotic heart disease of [place] coronary artery without angina pectoris (6) Chronic kidney disease (CKD) Status: Chronic Current Visit: No Code(s): N18.9 - Chronic kidney disease, unspecified (7) Chronic systolic congestive heart failure Status: Chronic Current Visit: No Code(s): I50.22 - Chronic systolic (congestive) heart failure (8) Essential hypertension Status: Chronic Current Visit: No Code(s): I10 - Essential (primary) hypertension (9) Lymphedema Status: Chronic Current Visit: No Code(s): I89.0 - Lymphedema, not elsewhere classified (10) Morbid obesity with BMI of 40.0-44.9, adult Status: Chronic Current Visit: No Code(s): E66.01 - Morbid (severe) obesity due to excess calories; Z68.41 - Body mass index (BMI) 40.0-44.9, adult (11) PVD (peripheral vascular disease) Status: Chronic Current Visit: No Code(s): I73.9 - Peripheral vascular disease, unspecified (12) Type 2 diabetes mellitus Status: Chronic Current Visit: No Code(s): E11.9 - Type 2 diabetes mellitus without complications (13) 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 There is a mild language barrier, and no translation is available at initial appointment. The patient reports that he has had swelling in his bilateral lower extremities for many years, as well as lymphedema. He is originally from [facility] [place], and reports moving to the about 25 years ago. He reports his swelling has gotten worse in the last few months with now open wounds to his lower extremities for the last couple of months as well. He has been using triple antibiotic ointment to both legs, and wrapping with Kerlix. He has not been using any compression, he states that he followed up with the lymphedema clinic in the past and that they have provided him with compression that was too difficult to use. Patient has a PMH significant for type 2 diabetes mellitus, morbid obesity, CHF, pulmonary hypertension, [place], ischemic cardiomyopathy, and hyperlipidemia. He is currently managed by Dr. Sandoval at [facility] as his PCP. He is ambulatory with a cane. He does report living with family at home, who can aid in his care as needed. He denies any other acute concerns. He denies any systemic signs of infection at this time. Progress of Wound: 12/12/2019?no new concerns, wounds are improving in size.Patient tolerated the 3M wraps well - Physical Exam Vital Signs Temp Pulse Resp BP 98 F 81 22 H 125/75 H 12/11/19 13:58 12/08/19 08:43 12/11/19 13:58 12/08/19 08:43 General: Alert, Oriented x3, Cooperative, No apparent distress HEENT: Atraumatic Oral: Moist Mucosa Lungs: Clear to auscultation Cardiovascular: Regular rate Abdomen: Soft, Non Tender Extremities: No clubbing, No cyanosis, Edema - 3+ pitting edema bilateral lower extremities, - - Chronic venous changes present bilateral lower extremities Skin: Ulcer/ Wound - Ulceration present bilateral lower extremities with adherent slough, no signs of infection at this time. Wound Measurements and Assessment WC - Nurse 1 - General Ulcer Measurement Start: 12/08/19 08:43 Freq: Status: Active Protocol: Activity Type Activity Date Activity User E-Sign Co-Sign Detail Recorded Client Recorded Date Recorded By Document 12/11/19 13:58 DL [id number] 12/11/19 14:07 DL 12/11/19 13:58 Wound Center Nurse 1 [Ulcer Assessment] #4 LLE Circ -Current Size (cm) - Length 13.5 -Current Size (cm) - Width 27 -Current Size (cm) - Depth 0.1 -Total Square Cm 364.5 -Photo Taken No -Exudate Amt Medium -Exudate Type Serosanguineous -Wound Margin Indistinct, Non -Visible -Granulation Amt Medium (34-66%) -Granulation Quality Red -Necrosis Amt Medium (34-66%) -Necrotic Tissue Type Adherent Slough -Structure Exposed N/A -Texture (Nicolle-wound Skin Appearance) Excoriation, Scarring -Moisture (Nicolle-wound Skin Appearance Dry/Scaly ) -Color (Nicolle-wound Skin Appearance) Hemosiderin Staining,Rubor -Temperature (Nicolle-wound Skin No Abnormality Appearance) (Pt Warm) -Tenderness on Palpation (Nicolle-wound No Skin Appearance) -Ulcer Cleansing Wound Cleanser -Foul Odor after Cleansing No -Anesthetic Used 4% Lidocaine Solution #3 RLE Med -Current Size (cm) - Length 2.2 -Current Size (cm) - Width 1.8 -Current Size (cm) - Depth 0.1 -Total Square Cm 3.96 -Photo Taken No -Exudate Amt Small -Exudate Type Serosanguineous -Wound Margin Indistinct, Non -Visible -Granulation Amt Large (67-100%) -Granulation Quality [place] -Necrosis Amt Small (1-33%) -Necrotic Tissue Type Adherent Slough -Structure Exposed N/A -Texture (Nicolle-wound Skin Appearance) Localized Edema ,Scarring -Moisture (Nicolle-wound Skin Appearance Dry/Scaly ) -Color (Nicolle-wound Skin Appearance) Hemosiderin Staining -Temperature (Nicolle-wound Skin No Abnormality Appearance) (Pt Warm) -Tenderness on Palpation (Nicolle-wound No Skin Appearance) -Ulcer Cleansing Wound Cleanser -Foul Odor after Cleansing No -Anesthetic Used 4% Lidocaine Solution [Edema Assessment] -Right Calf (cm) 46.5 -Right Ankle (cm) 33.8 -Left Calf (cm) 46 -Left Ankle (cm) 34.3 ABEL - Nurse 2 - General Ulcer CM Notes Start: 12/08/19 08:43 Freq: Status: Active Protocol: Activity Type Activity Date Activity User E-Sign Co-Sign Detail Recorded Client Recorded Date Recorded By Document 12/11/19 14:27 MW [id number] 12/11/19 14:32 MW 12/11/19 14:27 Wound Center Nurse 2 [Procedure/Treatment] #4 LLE Circ -Time 14:31 -Correct Patient Yes -Correct Side, Site, Position Yes -Correct Procedure Yes -Procedure Performed Yes -Type of Procedure Debridement -Clinical Debridement Subcutaneous -Post Debridement Size (cm) - Length 15.0 -Post Debridement Size (cm) - Width 41.5 -Post Debridement Size (cm) - Depth 0.2 -Total Square (cm) 622.50 -Wound/Ulcer Outcome Not Healed -Ulcer Cleansing Rinsed/ Irrigated with Saline -Foul Odor after Cleansing No -Bioengineered Tissue No -Bleeding Controlled with Pressure -Offloading No -Treatment Response Procedure Tolerated Well #3 RLE Med -Time 14:31 -Correct Patient Yes -Correct Side, Site, Position Yes -Correct Procedure Yes -Procedure Performed Yes -Type of Procedure Debridement -Clinical Debridement Subcutaneous -Post Debridement Size (cm) - Length 2.5 -Post Debridement Size (cm) - Width 2.0 -Post Debridement Size (cm) - Depth 0.1 -Total Square (cm) 5.00 -Wound/Ulcer Outcome Not Healed -Ulcer Cleansing Rinsed/ Irrigated with Saline -Foul Odor after Cleansing No -Bioengineered Tissue No -Bleeding Controlled with Pressure -Offloading No -Treatment Response Procedure Tolerated Well [See Physician Procedure note for Specifics] Pain Scale: 0-10 Numeric [Pain] -Is Patient Pain Free? Yes Neurological: Neuro grossly intact Psych/Mental Status: Normal Affect, Appropriate, Alert and oriented to time, place, person, mood and affect Debridement Note Post-Debridement Measurements/Treatment ABEL - Nurse 2 - General Ulcer CM Notes Start: 12/08/19 08:43 Freq: Status: Active Protocol: Activity Type Activity Date Activity User E-Sign Co-Sign Detail Recorded Client Recorded Date Recorded By Document 12/11/19 14:27 MW [id number] 12/11/19 14:32 MW 12/11/19 14:27 Wound Center Nurse 2 #4 LLE Circ -Time 14:31 -Correct Patient Yes -Correct Side, Site, Position Yes -Correct Procedure Yes -Procedure Performed Yes -Type of Procedure Debridement -Clinical Debridement Subcutaneous -Post Debridement Size (cm) - Length 15.0 -Post Debridement Size (cm) - Width 41.5 -Post Debridement Size (cm) - Depth 0.2 -Total Square (cm) 622.50 -Wound/Ulcer Outcome Not Healed -Ulcer Cleansing Rinsed/ Irrigated with Saline -Foul Odor after Cleansing No -Bioengineered Tissue No -Bleeding Controlled with Pressure -Offloading No -Treatment Response Procedure Tolerated Well #3 RLE Med -Time 14:31 -Correct Patient Yes -Correct Side, Site, Position Yes -Correct Procedure Yes -Procedure Performed Yes -Type of Procedure Debridement -Clinical Debridement Subcutaneous -Post Debridement Size (cm) - Length 2.5 -Post Debridement Size (cm) - Width 2.0 -Post Debridement Size (cm) - Depth 0.1 -Total Square (cm) 5.00 -Wound/Ulcer Outcome Not Healed -Ulcer Cleansing Rinsed/ Irrigated with Saline -Foul Odor after Cleansing No -Bioengineered Tissue No -Bleeding Controlled with Pressure -Offloading No -Treatment Response Procedure Tolerated Well Pain Scale: 0-10 Numeric Is Patient Pain Free? Yes Wound debrided: bilateral Lower extremity ulcers Laterality: Left Type of Debridement: Excisional debridement Anesthesia Used: 5% Lidocaine Gel Depth: in the subcutaneous layer Percentage of wound debrided: 50 Instrument Used: 5mm curette, 7mm curette Tissue Removed: Slough and devitalized tissue Severity: Fat Layer Exposed Amount of bleeding with debridement: Mild Bleeding Controlled with: Pressure Patient tolerated procedure well Assessment/Plan Active Problems (Last Reviewed 12/04/19 @ 15:26 by Riya Connolly NP-C) Venous stasis ulcer of right lower extremity (Acute) Venous stasis ulcer of left lower extremity (Acute) Assessment: Venous leg ulcers bilateral lower extremities. Lymphatic filariasis, chronic, suspected. Lymphedema, chronic. Bilateral lower extremity edema, chronic. PVD, chronic. Morbid obesity, chronic Plan: The patient was seen and examined at the wound center today and was updated on the plan of care. A subcutaneous debridement was performed today. The patient tolerated the procedure well. The patients wound care will consist of: Application of silver cell to all open ulcers and then bilateral 3M wraps over top for compression. Wound cultures and blood work held at this time. Vascular studies as dictated below. Patient educated on the importance of diet on wound healing and instructed to increase protein and vitamin C intake. Patient verbalized understanding. Patient will follow up at wound healing center in one week or sooner if needed. Patient has been advised to elevate lower extremities as much as possible. Elevation is to be implemented during daytime hours and legs are to be elevated to heart level, or higher, as much as possible. Prolonged idle sitting has been discouraged. Activity and ambulation has been encouraged. Patient referred back to the lymphedema clinic. For his chronic nonhealing wounds since he has failed standard wound care therapy and his wounds are greater than 4 weeks will apply for advanced skin substitute. Venous Doppler study completed 06/03/2019: Right great saphenous vein is absent, having been previously harvested; left great saphenous vein incompetent below the knee; right accessory saphenous vein and right mid calf is incompetent; otherwise normal venous Doppler study, see full report for further details. Arterial studies completed 06/03/2019: No evidence of significant arterial occlusive disease in bilateral lower extremities, see full report for further details. Note: [employer] speech recognition crime data specialist software was used to create portions of this document. Sound-alike and misspelled words, as well as other crime data specialist errors may be contained in the documentation. 111xxx-113xx: [id number] Karyna subq tissue 20 sq cm/< Add On Codes: [id number] Karyna subq tissue add-on
[2019-12-15 10:24] VITALS: BP 137/71; PULSE 80; RESP 16; TEMP 36.7; BMI 44.7
[2019-12-18 13:47] VITALS: BP 121/67; PULSE 80; RESP 22; TEMP 36.7; BMI 44.7
--- NOTE | 2019-12-18 21:03 | PN.PCM_ITS ---
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 Status: Chronic Qualifiers: Code(s): I25.810 - Atherosclerosis of coronary artery bypass graft(s) without angina pectoris Comment: CABG x6 ; Internal Mammary to Anterior Descending, SVG to diag branch of the Anterior descending,SVG to the lateral & posteriorlateral CX, SVG to Posterior Descending and continuation branches of the RCA 02/27/03 (4) Bilateral lower extremity edema Status: Chronic Code(s): R60.0 - Localized edema (5) CAD (coronary artery disease) Status: Chronic Code(s): I25.10 - Atherosclerotic heart disease of [place] coronary artery without angina pectoris (6) Chronic kidney disease (CKD) Status: Chronic Code(s): N18.9 - Chronic kidney disease, unspecified (7) Chronic systolic congestive heart failure Status: Chronic Code(s): I50.22 - Chronic systolic (congestive) heart failure (8) Essential hypertension Status: Chronic Code(s): I10 - Essential (primary) hypertension (9) Lymphedema Status: Chronic Code(s): I89.0 - Lymphedema, not elsewhere classified (10) Morbid obesity with BMI of 40.0-44.9, adult Status: Chronic Code(s): E66.01 - Morbid (severe) obesity due to excess calories; Z68.41 - Body mass index (BMI) 40.0-44.9, adult (11) PVD (peripheral vascular disease) Status: Chronic Code(s): I73.9 - Peripheral vascular disease, unspecified (12) Type 2 diabetes mellitus Status: Chronic Code(s): E11.9 - Type 2 diabetes mellitus without complications (13) 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 There is a mild language barrier, and no translation is available at initial appointment. The patient reports that he has had swelling in his bilateral lower extremities for many years, as well as lymphedema. He is originally from [facility] [place], and reports moving to the about 25 years ago. He reports his swelling has gotten worse in the last few months with now open wounds to his lower extremities for the last couple of months as well. He has been using triple antibiotic ointment to both legs, and wrapping with Kerlix. He has not been using any compression, he states that he followed up with the lymphedema clinic in the past and that they have provided him with compression that was too difficult to use. Patient has a PMH significant for type 2 diabetes mellitus, morbid obesity, CHF, pulmonary hypertension, [place], ischemic cardiomyopathy, and hyperlipidemia. He is currently managed by Dr. Sandoval at [facility] as his PCP. He is ambulatory with a cane. He does report living with family at home, who can aid in his care as needed. He denies any other acute concerns. He denies any systemic signs of infection at this time. Progress of Wound: 12/12/2019?no new concerns, wounds are improving in size.Patient tolerated the 3M wraps well. 12/18/19-right lower extremity ulcer is now healed, left lower extremity ulcer improved in size, patient is following up at the lymphedema clinic. Tolerating 3M wraps well. - Physical Exam Vital Signs Temp Pulse Resp BP 98.1 F 80 22 H 121/67 H 12/18/19 13:47 12/18/19 13:47 12/18/19 13:47 12/18/19 13:47 General: Alert, Oriented x3, Cooperative, No apparent distress HEENT: Atraumatic Oral: Moist Mucosa Lungs: Clear to auscultation Cardiovascular: Regular rate Extremities: No clubbing, No cyanosis, Diminished Peripheral Pulses, Edema - +1 pitting edema BLLE Skin: Ulcer/ Wound - See nursing documentation, slough and devitalized tissue, no signs of infection, chronic venous changes Musculoskeletal: No Tenderness to Palpation of Joints or Extremities Neurological: Neuro grossly intact Psych/Mental Status: Normal Affect, Appropriate, Alert and oriented to time, place, person, mood and affect Debridement Note Post-Debridement Measurements/Treatment WC - Nurse 2 - General Ulcer CM Notes Start: 12/08/19 08:43 Freq: Status: Active Protocol: Activity Type Activity Date Activity User E-Sign Co-Sign Detail Recorded Client Recorded Date Recorded By Document 12/11/19 14:27 MW [id number] 12/11/19 14:32 MW Document 12/18/19 14:26 MW [id number] 12/18/19 14:30 MW 12/11/19 12/18/19 14:27 14:26 Wound Center Nurse 2 #4 LLE Circ -Time 14:31 14:26 -Correct Patient Yes Yes -Correct Side, Site, Position Yes Yes -Correct Procedure Yes Yes -Procedure Performed Yes Yes -Type of Procedure Debridement Debridement -Clinical Debridement Subcutaneous Subcutaneous -Post Debridement Size (cm) - Length 15.0 3.5 -Post Debridement Size (cm) - Width 41.5 3.5 -Post Debridement Size (cm) - Depth 0.2 0.1 -Total Square (cm) 622.50 12.25 -Wound/Ulcer Outcome Not Healed Not Healed -Ulcer Cleansing Rinsed/ Rinsed/ Irrigated with Irrigated with Saline Saline -Foul Odor after Cleansing No No -Bioengineered Tissue No No -Bleeding Controlled with Pressure Pressure -Offloading No No -Treatment Response Procedure Procedure Tolerated Well Tolerated Well #3 RLE Med -Time 14:31 14:27 -Correct Patient Yes Yes -Correct Side, Site, Position Yes Yes -Correct Procedure Yes Yes -Procedure Performed Yes No -Type of Procedure Debridement -Clinical Debridement Subcutaneous -Post Debridement Size (cm) - Length 2.5 0 -Post Debridement Size (cm) - Width 2.0 0 -Post Debridement Size (cm) - Depth 0.1 0 -Total Square (cm) 5.00 0 -Wound/Ulcer Outcome Not Healed Healed- Epithelialized -Ulcer Cleansing Rinsed/ Irrigated with Saline -Foul Odor after Cleansing No -Bioengineered Tissue No -Bleeding Controlled with Pressure -Offloading No -Treatment Response Procedure Tolerated Well Pain Scale: 0-10 Numeric Is Patient Pain Free? Yes Yes Wound debrided: Left VLU Laterality: Left Type of Debridement: Excisional debridement Anesthesia Used: 5% Lidocaine Gel Depth: in the subcutaneous layer Percentage of wound debrided: 100 Instrument Used: 5mm curette Tissue Removed: slough and devitalized tissue Severity: Fat Layer Exposed Amount of bleeding with debridement: Mild Bleeding Controlled with: Pressure Patient tolerated procedure well Assessment/Plan Assessment: Venous leg ulcers bilateral lower extremities. Lymphatic filariasis, chronic, suspected. Lymphedema, chronic. Bilateral lower extremity edema, chronic. PVD, chronic. Morbid obesity, chronic Plan: The patient was seen and examined at the wound center today and was updated on the plan of care. A subcutaneous debridement was performed today. The patient tolerated the procedure well. The patients wound care will consist of: Application of silver cell to all open ulcers and then bilateral 3M wraps over top for compression. Wound cultures and blood work held at this time. Vascular studies as dictated below. Patient educated on the importance of diet on wound healing and instructed to increase protein and vitamin C intake. Patient verbalized understanding. Patient will follow up at wound healing center in one week or sooner if needed. Patient has been advised to elevate lower extremities as much as possible. Elevation is to be implemented during daytime hours and legs are to be elevated to heart level, or higher, as much as possible. Prolonged idle sitting has been discouraged. Activity and ambulation has been encouraged. Patient referred back to the lymphedema clinic. For his chronic nonhealing wounds since he has failed standard wound care therapy and his wounds are greater than 4 weeks will apply for advanced skin substitute. Venous Doppler study completed 06/03/2019: Right great saphenous vein is absent, having been previously harvested; left great saphenous vein incompetent below the knee; right accessory saphenous vein and right mid calf is incompetent; otherwise normal venous Doppler study, see full report for further details. Arterial studies completed 06/03/2019: No evidence of significant arterial occlusive disease in bilateral lower extremities, see full report for further details. Note: [employer] speech recognition laborer wood preserving plant software was used to create portions of this document. Sound-alike and misspelled words, as well as other laborer wood preserving plant errors may be contained in the documentation. 111xxx-113xx: [id number] Karyna subq tissue 20 sq cm/<
[2019-12-23 14:57] VITALS: BP 130/69; PULSE 75; RESP 18; TEMP 36.9; BMI 44.7
[2019-12-26 13:53] VITALS: BP 113/72; PULSE 73; RESP 20; TEMP 36.8; BMI 44.7
[2020-01-01 12:48] VITALS: BP 127/69; PULSE 72; RESP 16; TEMP 36.9; BMI 44.7
== END 2020-01-01 14:39 | disposition home or self-care (01) ==
LOC: WC 12:30
PROVIDERS: PCP Family Medicine; Referring Provider Nurse Practitioner Family; Visit Provider Nurse Practitioner Family
DX: I83.028 Varicose veins of left lower extremity with ulcer other part of lower leg (principal); L97.822 Non-pressure chronic ulcer of other part of left lower leg with fat layer exposed; I83.018 Varicose veins of right lower extremity with ulcer other part of lower leg; L97.812 Non-pressure chronic ulcer of other part of right lower leg with fat layer exposed; I25.10 Atherosclerotic heart disease of native coronary artery without angina pectoris; E11.22 Type 2 diabetes mellitus with diabetic chronic kidney disease; I13.0 Hypertensive heart and chronic kidney disease with heart failure and stage 1 through stage 4 chronic kidney disease, or unspecified chronic kidney disease; I50.22 Chronic systolic (congestive) heart failure; N18.9 Chronic kidney disease, unspecified; I89.0 Lymphedema, not elsewhere classified; E66.01 Morbid (severe) obesity due to excess calories; I25.2 Old myocardial infarction; E78.5 Hyperlipidemia, unspecified; I25.5 Ischemic cardiomyopathy; Z68.41 Body mass index [BMI] 40.0-44.9, adult; Z95.1 Presence of aortocoronary bypass graft; E11.51 Type 2 diabetes mellitus with diabetic peripheral angiopathy without gangrene
CPT/HCPCS: 11042; 11045; 29581; 99212; 99213; G0463

== ENCOUNTER 2020-01-14 11:00 | Outpatient (RCR) | payer MEDICARE, SELFPAY ==
[2019-12-08 08:43] VITALS: BMI 44.7
[2019-12-18 13:47] VITALS: BMI 44.7
--- NOTE | 2019-12-22 10:25 | HP.OTEVAL ---
Patient's Visit Information KAUR SANDOVAL is a 63 year old M, referred to Occupational Therapy by ELAYNE Lara, with a diagnosis of LE lymphedema. Date of Evaluation: 12/22/19 Occupational Therapist: Rebecca Osei, DAISYR/Jay, CHT - Subjective This 63 year old male was seen for OT eval for LE lymphedema- pt goes by SANYA pt states he did get velcro closer but unable to get them on and he said no one in his home could hlep him. pt arrives today with cotton wraps over his wounds. Pt's foot altamirano are slides. pt states he continues to struggle with wounds and edema. - Pain Bilateral leg pain 6 Pain Intensity Range: 3, 6 - ROM Shoulder: right/left WNL Elbow: right/left WNL Forearm: right/left WNL - Lymphedema (Circumferential Measure) Mid-foot: right 28cm left 25.5cm Ankle: right 32cm left 33cm Lower calf: right 39cm left 43cm Largest calf: right 48cm left 46cm Below knee: right 44cm left 44cm - Lower Limb Functional Index Lower Extremity Functional Score: 29 - Goals Demonstrate a 20% reduction in edema by d/c: Yes Demonstrate adequate knowledge of self-bangaging by 1st week: Yes Demonstrate adequate knowledge skin care/prec by 2nd week: Yes Demonstrate adequate knowledge therapeutic exercises by d/c: Yes Select approp compression garment w/donning/care/wear by d/c: Yes Voice need to replace compression garment every 4-6mo by dc: Yes - Rehabilitation General Assessment: Pt demo LE lymphedema stage III, pt would benefit from therapy services 1-2x week for 4 weeks. Today therapist ed. pt on lymph stim ex, the necessity of using of compression devices and skin care. Therapist advised pt on sleeping position to avoid hips being bent for long periods of time. Therapist ed. pt to get up and move every hour, and to perform lymp stim ex. 4 times a day. pt demo understanding and agree to POC. Rehabilitation Potential: Questionable - Anticipated Interventions Education re Diagnosis, Education re Life-long lymphedema Management, Education re Self-Bandaging Techniques, Education re Skin Care and Precautions, Education re Self Massage Techniques, Education re Correct Donning Tech,Care&Wearing Sched Comp Garments, Caregiver Training, Home Program - Visit Plan Frequency: 1-2x /Week Duration: 2 Weeks TEXT: Thank you for the opportunity to evaluate your patient. For Medicare and Medicare HMO plans, please review the plan of care and approve it. It will need to be FAXED BACK to us at [phone] for Medicare purposes. Please let me know if there are questions or concerns regarding this plan of care. Physician Signature: Date:
--- NOTE | 2019-12-22 13:27 | HP.OTEVAL_ITS ---
Patient's Visit Information KAUR SANDOVAL is a 63 year old M, referred to Occupational Therapy by ELAYNE Lara, with a diagnosis of LE lymphedema. Date of Evaluation: 12/22/19 Occupational Therapist: Rebecca Osei, MARIA LUISA/Jay, CHT - Subjective This 63 year old male was seen for OT eval for LE lymphedema- pt goes by SANYA pt states he did get velcro closer but unable to get them on and he said no one in his home could help him. pt arrives today with cotton wraps over his wounds. Pt's foot altamirano are slides states his shoes don't fit. pt states he continues to struggle with wounds and edema. - Pain Bilateral leg pain 6 Pain Intensity Range: 3, 6 - ROM Shoulder: right/left WNL Elbow: right/left WNL Forearm: right/left WNL - Lymphedema (Circumferential Measure) Mid-foot: right 28cm left 25.5cm Ankle: right 32cm left 33cm Lower calf: right 39cm left 43cm Largest calf: right 48cm left 46cm Below knee: right 44cm left 44cm - Lower Limb Functional Index Lower Extremity Functional Score: 29 - Goals Demonstrate a 20% reduction in edema by d/c: Yes Demonstrate adequate knowledge of self-bangaging by 1st week: Yes Demonstrate adequate knowledge skin care/prec by 2nd week: Yes Demonstrate adequate knowledge therapeutic exercises by d/c: Yes Select approp compression garment w/donning/care/wear by d/c: Yes Voice need to replace compression garment every 4-6mo by dc: Yes - Rehabilitation General Assessment: Pt demo LE lymphedema stage III, pt would benefit from therapy services 1-2x week for 4 weeks. Today therapist ed. pt on lymph stim ex, the necessity of using of compression devices and skin care. Therapist advised pt on sleeping position to avoid hips being bent for long periods of time. Therapist ed. pt to get up and move every hour, and to perform lymp stim ex. 4 times a day. pt demo understanding and agree to POC. Rehabilitation Potential: Questionable - Anticipated Interventions Education re Diagnosis, Education re Life-long lymphedema Management, Education re Self-Bandaging Techniques, Education re Skin Care and Precautions, Education re Self Massage Techniques, Education re Correct Donning Tech,Care&Wearing Sched Comp Garments, Caregiver Training, Home Program - Visit Plan Frequency: 1-2x /Week Duration: 2 Weeks TEXT: Thank you for the opportunity to evaluate your patient. For Medicare and Medicare HMO plans, please review the plan of care and approve it. It will need to be FAXED BACK to us at [phone] for Medicare purposes. Please let me know if there are questions or concerns regarding this plan of care. Physician Signature: Date:__
--- NOTE | 2020-01-01 16:52 | PCM.WC.PN ---
(1) Venous stasis ulcer of left lower extremity Status: Acute Current Visit: Yes Code(s): I83.029 - Varicose veins of left lower extremity with ulcer of unspecified site; L97.929 - Non-pressure chronic ulcer of unspecified part of left lower leg with unspecified severity (2) Venous stasis ulcer of right lower extremity Status: Acute Current Visit: Yes Code(s): I83.019 - Varicose veins of right lower extremity with ulcer of unspecified site; L97.919 - Non-pressure chronic ulcer of unspecified part of right lower leg with unspecified severity (3) Atherosclerosis of coronary artery bypass graft without angina pectoris Status: Chronic Current Visit: No Qualifiers: Code(s): I25.810 - Atherosclerosis of coronary artery bypass graft(s) without angina pectoris Comment: CABG x6 ; Internal Mammary to Anterior Descending, SVG to diag branch of the Anterior descending,SVG to the lateral & posteriorlateral CX, SVG to Posterior Descending and continuation branches of the RCA 02/27/03 (4) Bilateral lower extremity edema Status: Chronic Current Visit: No Code(s): R60.0 - Localized edema (5) CAD (coronary artery disease) Status: Chronic Current Visit: No Code(s): I25.10 - Atherosclerotic heart disease of [place] coronary artery without angina pectoris (6) Morbid obesity with BMI of 40.0-44.9, adult Status: Chronic Current Visit: No Code(s): E66.01 - Morbid (severe) obesity due to excess calories; Z68.41 - Body mass index (BMI) 40.0-44.9, adult (7) PVD (peripheral vascular disease) Status: Chronic Current Visit: No Code(s): I73.9 - Peripheral vascular disease, unspecified Type of Wound Date of Service: 01/01/20 Chief Complaint: swelling and wounds of both legs History of Wound: Patient is a pleasant 63-year-old male who goes by the name of Marilynn, who presents 11/27/2019 with complaint of swelling to bilateral lower extremities, and wounds to bilateral legs. There is a mild language barrier, and no translation is available at initial appointment. The patient reports that he has had swelling in his bilateral lower extremities for many years, as well as lymphedema. He is originally from [facility], and reports moving to the about 25 years ago. He reports his swelling has gotten worse in the last few months with now open wounds to his lower extremities for the last couple of months as well. He has been using triple antibiotic ointment to both legs, and wrapping with Kerlix. He has not been using any compression, he states that he followed up with the lymphedema clinic in the past and that they have provided him with compression that was too difficult to use. Patient has a PMH significant for type 2 diabetes mellitus, morbid obesity, CHF, pulmonary hypertension, [place], ischemic cardiomyopathy, and hyperlipidemia. He is currently managed by Dr. Sandoval at [facility] as his PCP. He is ambulatory with a cane. He does report living with family at home, who can aid in his care as needed. He denies any other acute concerns. He denies any systemic signs of infection at this time. Progress of Wound: sites are healed, no signs of infection at this time, patient to continue following up with lymphedema clinic - Physical Exam General: Alert, Oriented x3, Cooperative, No apparent distress HEENT: Atraumatic Oral: Moist Mucosa Lungs: Clear to auscultation Cardiovascular: Regular rate, Regular Rhythm Abdomen: Soft Extremities: No clubbing, No cyanosis, Edema - +1 pitting edema bilateral lower extremities with chronic venous changes present, Peripheral Pulses Normal Skin: Ulcer/ Wound - Ulcerations are healed without any signs of infection at this time Neurological: Neuro grossly intact Psych/Mental Status: Normal Affect, Appropriate, Alert and oriented to time, place, person, mood and affect Debridement Note No debridement was completed today Assessment/Plan Active Problems (Last Reviewed 12/29/19 @ 12:18 by Maureen Dove) Venous stasis ulcer of right lower extremity (Acute) Venous stasis ulcer of left lower extremity (Acute) Assessment: Venous leg ulcers bilateral lower extremities. Lymphatic filariasis, chronic, suspected. Lymphedema, chronic. Bilateral lower extremity edema, chronic. PVD, chronic. Morbid obesity, chronic Plan: The patient was seen and examined at the wound center today and was updated on the plan of care. His wounds are healed, he was instructed to continue following up with the lymphedema clinic. Discussed coming back to the wound healing center if new wounds arise. Patient educated on the importance of diet on wound healing and instructed to increase protein and vitamin C intake. Patient verbalized understanding. Patient will be discharged from the wound healing center. Patient has been advised to elevate lower extremities as much as possible. Elevation is to be implemented during daytime hours and legs are to be elevated to heart level, or higher, as much as possible. Prolonged idle sitting has been discouraged. Activity and ambulation has been encouraged. Patient referred back to the lymphedema clinic. Venous Doppler study completed 06/03/2019: Right great saphenous vein is absent, having been previously harvested; left great saphenous vein incompetent below the knee; right accessory saphenous vein and right mid calf is incompetent; otherwise normal venous Doppler study, see full report for further details. Arterial studies completed 06/03/2019: No evidence of significant arterial occlusive disease in bilateral lower extremities, see full report for further details. Note: [employer] speech recognition treatment technician software was used to create portions of this document. Sound-alike and misspelled words, as well as other treatment technician errors may be contained in the documentation. Office Visits / Consults: [id number] OV L3 Est
--- NOTE | 2020-01-14 11:54 | HP.OTDCSUM ---
It has been my pleasure to treat KAUR SANDOVAL under orders from ELAYNE Lara, for the diagnosis of LE lymphedema for a total of 4 visit(s). Please see the following information for a summary of their discharge status. % Improvement: 75 Objective/Function: pt demo good understanding of HEP to stimulate circulation bilateral legs have reduced in size and pt arrives to session with sock and compression alternative on right LE- pt states he can kunal and doff compression garement IND. pt demo good understanding of lymph stim ex- therapist ed. pt on position while sleeping and sitting- pt demo understanding- therapist advised pt to take compression alternative to wound center apt to ensure if they remove wound wrap and wounds are healed pt can put compression garment prior to leaving the apt. Patient Goals: Learn how to Manage Lymphedema Other: learn how to put compression alternatives on IND Demonstrate a 20% reduction in edema by d/c: Yes Demonstrate adequate knowledge of self-bangaging by 1st week: Yes Demonstrate adequate knowledge skin care/prec by 2nd week: Yes Demonstrate adequate knowledge therapeutic exercises by d/c: Yes Select approp compression garment w/donning/care/wear by d/c: Yes Voice need to replace compression garment every 4-6mo by dc: Yes Plan: have pt on mat table and have pt kunal compression garments Discharge Comments: pt demo understanding of lymph mtg as to use compression garments daily and due to pt sitting up to sleep compression was advised. therapist explained to pt that he should not have his legs without compression more than 45 min at a time. pt demo understanding. pt demo good understanding and demo HEP well. Pt demo understanding to mt. his lymphedmea- if pt continues to have wounds and swelling pt may benefit from compression pump to hlep pt with circulation and mtg. pt demo understanding and agree to work hard at controlling his edema . pt d/c. with HEp If there are questions or concerns regarding this patient's occupational therapy, please fell free to call me at [phone]. Thank you for the referral of this patient. Sincerely, Rebecca Osei, OTR/L, CHT
== END 2020-01-14 19:00 | disposition home or self-care (01) ==
LOC: OT 11:00
PROVIDERS: PCP Family Medicine; Referring Provider Nurse Practitioner Family; Visit Provider Nurse Practitioner Family
DX: I89.0 Lymphedema, not elsewhere classified (principal)
CPT/HCPCS: 97110; 97166; 97530

== ENCOUNTER 2020-01-29 14:45 | Outpatient (RCR) | payer MEDICARE, SELFPAY ==
[2019-06-26 22:24] VITALS: BMI 43.5
[2019-07-06 00:51] VITALS: BP 117/66; PULSE 75; RESP 16; TEMP 36.6
[2020-01-08 15:30] VITALS: BP 123/60; PULSE 70; RESP 16; TEMP 36.1; BMI 44.7
--- NOTE | 2020-01-08 20:48 | PN.PCM_ITS ---
(1) Venous stasis ulcer of left lower extremity Status: Acute Code(s): I83.029 - Varicose veins of left lower extremity with ulcer of unspecified site; L97.929 - Non-pressure chronic ulcer of unspecified part of left lower leg with unspecified severity (2) Atherosclerosis of coronary artery bypass graft without angina pectoris Status: Chronic Qualifiers: Code(s): I25.810 - Atherosclerosis of coronary artery bypass graft(s) without angina pectoris Comment: CABG x6 ; Internal Mammary to Anterior Descending, SVG to diag branch of the Anterior descending,SVG to the lateral & posteriorlateral CX, SVG to Posterior Descending and continuation branches of the RCA 02/27/03 (3) Bilateral lower extremity edema Status: Chronic Code(s): R60.0 - Localized edema (4) Chronic kidney disease (CKD) Status: Chronic Code(s): N18.9 - Chronic kidney disease, unspecified (5) Chronic systolic congestive heart failure Status: Chronic Code(s): I50.22 - Chronic systolic (congestive) heart failure (6) Essential hypertension Status: Chronic Code(s): I10 - Essential (primary) hypertension (7) Lymphedema Status: Chronic Code(s): I89.0 - Lymphedema, not elsewhere classified (8) Morbid obesity with BMI of 40.0-44.9, adult Status: Chronic Code(s): E66.01 - Morbid (severe) obesity due to excess calories; Z68.41 - Body mass index (BMI) 40.0-44.9, adult (9) PVD (peripheral vascular disease) Status: Chronic Code(s): I73.9 - Peripheral vascular disease, unspecified Type of Wound Date of Service: 01/08/20 Chief Complaint: swelling of both legs and nonhealing ulcer to left lower extremity History of Wound: Patient is a pleasant 63-year-old male who goes by the name of Marilynn, who presents 11/27/2019 with complaint of swelling to bilateral lower extremities, and wounds to bilateral legs. There is a mild language barrier, and no translation is available at initial appointment. The patient reports that he has had swelling in his bilateral lower extremities for many years, as well as lymphedema. He is originally from [facility], and reports moving to the about 25 years ago. He reports his swelling has gotten worse in the last few months with now open wounds to his lower extremities for the last couple of months as well. He has been using triple antibiotic ointment to both legs, and wrapping with Kerlix. He has not been using any compression, he states that he followed up with the lymphedema clinic in the past and that they have provided him with compression that was too difficult to use. Patient has a PMH significant for type 2 diabetes mellitus, morbid obesity, CHF, pulmonary hypertension, [place], ischemic cardiomyopathy, and hyperlipidemia. He is currently managed by Dr. Sandoval at [facility] as his PCP. He is ambulatory with a cane. He does report living with family at home, who can aid in his care as needed. He denies any other acute concerns. He denies any systemic signs of infection at this time. Progress of Wound: 01/08/2020?patient returns to the clinic for new ulceration to his left lower extremity, this happened shortly after the 3M wraps were removed and patient was not compliant with his lymphedema management compression wraps at home. He does have CircAid's but does not always utilize them. He notes increasing drainage from the ulceration, however it is only been present now for approximately 5 or 6 days. He is following up routinely with [facility] lymphedema clinic as well. Denies any acute concerns. All other systems reviewed and negative with exception of those listed above. - Physical Exam Vital Signs Temp Pulse Resp BP 96.9 F L 70 16 123/60 H 01/08/20 15:30 01/08/20 15:30 01/08/20 15:30 01/08/20 15:30 General: Alert, Oriented x3, Cooperative, No apparent distress HEENT: Atraumatic Oral: Moist Mucosa Lungs: Clear to auscultation, Normal air movement Cardiovascular: Regular rate, Regular Rhythm Abdomen: Soft Extremities: No clubbing, No cyanosis, Edema - Chronic lymphedema and venous changes present to bilateral lower extremities, Peripheral Pulses Normal Skin: Ulcer/ Wound - See nursing documentation, large amount of slough and devitalized tissue present, no obvious signs of infection at this time. Neurological: Neuro grossly intact Psych/Mental Status: Normal Affect, Alert and oriented to time, place, person, mood and affect Debridement Note Post-Debridement Measurements/Treatment WC - Nurse 2 - General Ulcer CM Notes Start: 09/03/20 15:30 Freq: Status: Active Protocol: Activity Type Activity Date Activity User E-Sign Co-Sign Detail Recorded Client Recorded Date Recorded By Document 01/08/20 15:50 MW [id number] 01/08/20 15:54 MW 01/08/20 15:50 Wound Center Nurse 2 #4 LLE Circ -Time 15:51 -Correct Patient Yes -Correct Side, Site, Position Yes -Correct Procedure Yes -Procedure Performed Yes -Type of Procedure Debridement -Clinical Debridement Subcutaneous -Tissue Removed Subcutaneous -Post Debridement (cm) - Length 14.5 -Post Debridement (cm) - Width 9.0 -Post Debridement (cm) - Depth 0.1 -Total Square (Post) (cm) 130.50 -Area of Debridement (cm) - Length 14.5 -Area of Debridement (cm) - Width 9.0 -Total Square (Area) (cm) 130.50 -Tunneling No -Undermining/Tunneling No -Circular Undermining No -Wound/Ulcer Outcome Not Healed -Ulcer Cleansing Rinsed/ Irrigated with Saline -Foul Odor after Cleansing No -Bioengineered Tissue No -Bleeding Controlled with Pressure -Offloading No -Debridement - Subq, 1st 20sq cm Yes -Debridement, SubQ, ea addt'l 20sq cm 6 or part thereof Pain Scale: 0-10 Numeric Is Patient Pain Free? Yes - Nurse 3 - General Ulcer D/C NN Start: 01/08/20 15:30 Freq: Status: Active Protocol: Activity Type Activity Date Activity User E-Sign Co-Sign Detail Recorded Client Recorded Date Recorded By Document 01/08/20 16:07 RB [id number] 01/08/20 16:09 RB 01/08/20 16:07 Wound Care Nurse 3 #4 LLE Circ -Ulcer Cleansing Wound Cleanser -Primary Dressing Applied Silvercel -Primary Dressing Covered/Secured with Dry Gauze,Dry Gauze & Roll Gauze,Secured with Tape -Other Covering abd -Silvercel 1 Treatment Response Procedure Tolerated Well Pain Scale: 0-10 Numeric Is Patient Pain Free? Yes Teaching: Wound Center Dressing Your Wound -Person Taught Patient -Teaching Method Discussion, Demonstration -Response to teaching Verbalize understanding WC - Visit Discharge Discharge Condition Stable Ambulatory Status Ambulatory Transportation Private Auto Medication Reconcilliation completed & No provided to patient/care provider Clinical Summary of Care Provided Yes Wound debrided: Venous leg ulcer left lower extremity Type of Debridement: Excisional debridement Anesthesia Used: 5% Lidocaine Gel Depth: Down to and including healthy tissue, in the subcutaneous layer Percentage of wound debrided: 100 Instrument Used: 7mm curette Tissue Removed: Slough and devitalized tissue Severity: Fat Layer Exposed Amount of bleeding with debridement: Mild Bleeding Controlled with: Pressure Patient tolerated procedure well Assessment/Plan Assessment: Venous leg ulcer left lower extremity. Lymphatic filariasis, chronic, suspected. Lymphedema, chronic. Bilateral lower extremity edema, chronic. PVD, chronic. Morbid obesity, chronic Plan: The patient was seen and examined at the wound center today and was updated on the plan of care. Patient's wound care will consist of bilateral 3M wraps with moistened silver cell on top of the ulceration to the left lower extremity. He will continue to follow-up with lymphedema clinic. Patient educated on the importance of diet on wound healing and instructed to increase protein and vitamin C intake. Patient verbalized understanding. Patient has been advised to elevate lower extremities as much as possible. Elevation is to be implemented during daytime hours and legs are to be elevated to heart level, or higher, as much as possible. Prolonged idle sitting has been discouraged. Activity and ambulation has been encouraged. Venous Doppler study completed 06/03/2019: Right great saphenous vein is absent, having been previously harvested; left great saphenous vein incompetent below the knee; right accessory saphenous vein and right mid calf is incompetent; otherwise normal venous Doppler study, see full report for further details. Arterial studies completed 06/03/2019: No evidence of significant arterial occlusive disease in bilateral lower extremities, see full report for further details. Note: [employer] speech recognition outgoing inspector software was used to create portions of this document. Sound-alike and misspelled words, as well as other outgoing inspector errors may be contained in the documentation. [id number]: [id number] Karyna subq tissue 20 sq cm/<
[2020-01-13 13:39] VITALS: BP 145/73; PULSE 73; RESP 16; TEMP 36.9; BMI 44.7
[2020-01-15 15:47] VITALS: BP 115/44; PULSE 67; RESP 18; TEMP 36.3; BMI 44.7
--- NOTE | 2020-01-16 14:32 | PN.PCM_ITS ---
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 Status: Chronic Current Visit: Yes Qualifiers: Code(s): I25.810 - Atherosclerosis of coronary artery bypass graft(s) without angina pectoris Comment: CABG x6 ; Internal Mammary to Anterior Descending, SVG to diag branch of the Anterior descending,SVG to the lateral & posteriorlateral CX, SVG to Posterior Descending and continuation branches of the RCA 02/27/03 (3) Bilateral lower extremity edema Status: Chronic Current Visit: Yes Code(s): R60.0 - Localized edema (4) Chronic kidney disease (CKD) Status: Chronic Current Visit: Yes Code(s): N18.9 - Chronic kidney disease, unspecified (5) Chronic systolic congestive heart failure Status: Chronic Current Visit: Yes Code(s): I50.22 - Chronic systolic (congestive) heart failure (6) Essential hypertension Status: Chronic Current Visit: Yes Code(s): I10 - Essential (primary) hypertension (7) Lymphedema Status: Chronic Current Visit: Yes Code(s): I89.0 - Lymphedema, not elsewhere classified (8) Morbid obesity with BMI of 40.0-44.9, adult Status: Chronic Current Visit: Yes Code(s): E66.01 - Morbid (severe) obesity due to excess calories; Z68.41 - Body mass index (BMI) 40.0-44.9, adult (9) PVD (peripheral vascular disease) Status: Chronic Current Visit: Yes Code(s): I73.9 - Peripheral vascular disease, unspecified Type of Wound Date of Service: 01/15/20 Chief Complaint: swelling of both legs and nonhealing ulcer to left lower extremity History of Wound: Patient is a pleasant 63-year-old male who goes by the name of Marilynn, who presents 11/27/2019 with complaint of swelling to bilateral lower extremities, and wounds to bilateral legs. There is a mild language barrier, and no translation is available at initial appointment. The patient reports that he has had swelling in his bilateral lower extremities for many years, as well as lymphedema. He is originally from [facility], and [place] moving to the [place] about 25 years ago. He reports his swelling has gotten worse in the last few months with now open wounds to his lower extremities for the last couple of months as well. He has been using triple antibiotic ointment to both legs, and wrapping with Kerlix. He has not been using any compression, he states that he followed up with the lymphedema clinic in the past and that they have provided him with compression that was too difficult to use. Patient has a PMH significant for type 2 diabetes mellitus, morbid obesity, CHF, pulmonary hypertension, [place], ischemic cardiomyopathy, and hyperlipidemia. He is currently managed by Dr. Sandoval at [facility] as his PCP. He is ambulatory with a cane. He does report living with family at home, who can aid in his care as needed. He denies any other acute concerns. He denies any systemic signs of infection at this time. Progress of Wound: 01/08/2020?patient returns to the clinic for new ulceration to his left lower extremity, this happened shortly after the 3M wraps were removed and patient was not compliant with his lymphedema management compression wraps at home. He does have CircAid's but does not always utilize them. He notes increasing drainage from the ulceration, however it is only been present now for approximately 5 or 6 days. He is following up routinely with [facility] lymph edema clinic as well. Denies any acute concerns. All other systems reviewed and negative with exception of those listed above. 01/15/2020?patient does note increased in drainage and foul smell from wounds, culture collected of the ulceration to the left lower extremity, otherwise no new concerns. No worsening swelling or systemic signs of infection at this time. - Physical Exam Vital Signs Temp Pulse Resp BP 97.4 F L 67 18 115/44 L 01/15/20 15:47 01/15/20 15:47 01/15/20 15:47 01/15/20 15:47 General: Alert, Oriented x3, Cooperative, No apparent distress HEENT: Atraumatic Oral: Moist Mucosa Lungs: Clear to auscultation, Normal air movement, No rhonchi, No wheeze Cardiovascular: Regular rate, Regular Rhythm Abdomen: Soft, Non Tender Extremities: No clubbing, No cyanosis, Edema - 3+ pitting edema bilateral lower extremities with chronic venous changes present Skin: Ulcer/ Wound - See nursing documentation, large amount of slough present, foul smell from drainage therefore cultures were collected Wound Measurements and Assessment - Nurse 1 - General Ulcer Measurement Start: 01/08/20 15:30 Freq: Status: Active Protocol: Activity Type Activity Date Activity User E-Sign Co-Sign Detail Recorded Client Recorded Date Recorded By Document 01/13/20 13:39 [facility] [id number] 01/13/20 13:41 [facility] Document 01/15/20 15:47 [facility] [id number] 01/15/20 15:52 [facility] 01/13/20 01/15/20 13:39 15:47 [Ulcer Assessment] #4 LLE Circ -Combined with other wound No -Current Size (cm) - Length 16.5 -Current Size (cm) - Width 17 -Current Size (cm) - Depth 0.1 -Total Square Cm 280.5 -Epithelialization None Present -Tunneling No -Undermining/Tunneling No -Circular Undermining No -Exudate Amt Large -Exudate Type Serous -Wound Margin Distinct, Outline Attached -Granulation Amt Medium (34-66%) -Granulation Quality Red -Slough/Fibrin Yes -Necrosis Amt Medium (34-66%) -Necrotic Tissue Type Adherent Slough -Texture (Nicolle-wound Skin Appearance) Assessed, Scarring -Moisture (Nicolle-wound Skin Appearance Assessed, ) Maceration,Dry/ Scaly -Color (Nicolle-wound Skin Appearance) Assessed, Erythema, Hemosiderin Staining,Palor -Temperature (Nicolle-wound Skin No Abnormality Appearance) (Pt Warm) -Tenderness on Palpation (Nicolle-wound No Skin Appearance) -Ulcer Cleansing SOAPY WATER -Foul Odor after Cleansing No -Anesthetic Used 4% Lidocaine Solution Wound Center Nurse 1 [Edema Assessment] -Lower Limb Edema Present Yes Yes -Left Calf (cm) 46.5 44.5 -Left Ankle (cm) 34.9 33 - Nurse 2 - General Ulcer CM Notes Start: 01/08/20 15:30 Freq: Status: Active Protocol: Activity Type Activity Date Activity User E-Sign Co-Sign Detail Recorded Client Recorded Date Recorded By Document 01/15/20 15:57 MW [id number] 01/15/20 16:03 MW 01/15/20 15:57 Wound Center Nurse 2 [Procedure/Treatment] #4 LLE Circ -Time 16:01 -Correct Patient Yes -Correct Side, Site, Position Yes -Correct Procedure Yes -Procedure Performed Yes -Type of Procedure Debridement -Clinical Debridement Subcutaneous -Tissue Removed Subcutaneous -Post Debridement (cm) - Length 12.5 -Post Debridement (cm) - Width 11.0 -Post Debridement (cm) - Depth 0.1 -Total Square (Post) (cm) 137.50 -Area of Debridement (cm) - Length 12.5 -Area of Debridement (cm) - Width 11.0 -Total Square (Area) (cm) 137.50 -Tunneling No -Undermining/Tunneling No -Circular Undermining No -Wound/Ulcer Outcome Not Healed -Ulcer Cleansing Rinsed/ Irrigated with Saline -Foul Odor after Cleansing No -Bioengineered Tissue No -Bleeding Controlled with Pressure -Offloading No -Treatment Response Procedure Tolerated Well -Debridement - Subq, 1st 20sq cm Yes -Debridement, SubQ, ea addt'l 20sq cm 6 or part thereof [See Physician Procedure note for Specifics] Pain Scale: 0-10 Numeric [Pain] -Is Patient Pain Free? Yes WC - Nurse 3 - General Ulcer D/C NN Start: 01/08/20 15:30 Freq: Status: Active Protocol: Activity Type Activity Date Activity User E-Sign Co-Sign Detail Recorded Client Recorded Date Recorded By Document 01/13/20 13:39 [facility] [id number] 01/13/20 13:41 [facility] Document 01/15/20 16:07 [id number] 01/15/20 16:08 RB 01/13/20 01/15/20 13:39 16:07 Pain Scale: 0-10 Numeric [Pain] -Is Patient Pain Free? Yes Yes Teaching: Wound Center [Wound Center Education] (Items with an * have Printed Materials Available- Please identify what is given to patient under the Teaching materials given to patient and caregiver Section. Compression Wraps & Stockings -Person Taught Patient -Teaching Method Discussion, Demonstration -Response to teaching Verbalize understanding Wound Care Nurse 3 [Wound Dressing] #4 LLE Circ -Ulcer Cleansing Rinsed/ Rinsed/ Irrigated with Irrigated with Saline Saline -Foul Odor after Cleansing No -Primary Dressing Applied Silvercel Silvercel -Primary Dressing Covered/Secured Other with -Other Covering ABD ABD -Silvercel 1 1 [Compression Applied] Right -Other APPLIED PTS OWN CIRC AID COMPRESSION WRAP Left -Multi-Layered Wrap Application Multi-Layer Multi-Layer Comp - Left ($) Comp - Left ($) [Post Procedure Tolerated] -Treatment Response Procedure Procedure Tolerated Well Tolerated Well WC - Visit Discharge [Visit Discharge Information] -Discharge Condition Stable Stable -Ambulatory Status Ambulatory,Cane Ambulatory,Cane -Transportation [facility] Private Auto -Medication Reconcilliation completed No & provided to patient/care provider -Clinical Summary of Care Provided Yes Neurological: Neuro grossly intact Psych/Mental Status: Normal Affect, Appropriate, Alert and oriented to time, place, person, mood and affect Debridement Note Post-Debridement Measurements/Treatment - Nurse 2 - General Ulcer CM Notes Start: 01/08/20 15:30 Freq: Status: Active Protocol: Activity Type Activity Date Activity User E-Sign Co-Sign Detail Recorded Client Recorded Date Recorded By Document 01/08/20 15:50 MW [id number] 01/08/20 15:54 MW Document 01/15/20 15:57 MW [id number] 01/15/20 16:03 MW 01/08/20 01/15/20 15:50 15:57 Wound Center Nurse 2 #4 LLE Circ -Time 15:51 16:01 -Correct Patient Yes Yes -Correct Side, Site, Position Yes Yes -Correct Procedure Yes Yes -Procedure Performed Yes Yes -Type of Procedure Debridement Debridement -Clinical Debridement Subcutaneous Subcutaneous -Tissue Removed Subcutaneous Subcutaneous -Post Debridement (cm) - Length 14.5 12.5 -Post Debridement (cm) - Width 9.0 11.0 -Post Debridement (cm) - Depth 0.1 0.1 -Total Square (Post) (cm) 130.50 137.50 -Area of Debridement (cm) - Length 14.5 12.5 -Area of Debridement (cm) - Width 9.0 11.0 -Total Square (Area) (cm) 130.50 137.50 -Tunneling No No -Undermining/Tunneling No No -Circular Undermining No No -Wound/Ulcer Outcome Not Healed Not Healed -Ulcer Cleansing Rinsed/ Rinsed/ Irrigated with Irrigated with Saline Saline -Foul Odor after Cleansing No No -Bioengineered Tissue No No -Bleeding Controlled with Pressure Pressure -Offloading No No -Treatment Response Procedure Tolerated Well -Debridement - Subq, 1st 20sq cm Yes Yes -Debridement, SubQ, ea addt'l 20sq cm 6 6 or part thereof Pain Scale: 0-10 Numeric Is Patient Pain Free? Yes Yes WC - Nurse 3 - General Ulcer D/C NN Start: 01/08/20 15:30 Freq: Status: Active Protocol: Activity Type Activity Date Activity User E-Sign Co-Sign Detail Recorded Client Recorded Date Recorded By Document 01/08/20 16:07 RB [id number] 01/08/20 16:09 RB Document 01/13/20 13:39 [facility] [id number] 01/13/20 13:41 [facility] Document 01/15/20 16:07 RB [id number] 01/15/20 16:08 RB 01/08/20 01/13/20 01/15/20 16:07 13:39 16:07 Wound Care Nurse 3 #4 LLE Circ -Ulcer Cleansing Wound Cleanser Rinsed/ Rinsed/ Irrigated with Irrigated with Saline Saline -Foul Odor after Cleansing No -Primary Dressing Applied Silvercel Silvercel Silvercel -Primary Dressing Covered/Secured with Dry Gauze,Dry Other Gauze & Roll Gauze,Secured with Tape -Other Covering abd ABD ABD -Silvercel 1 1 1 Right -Other APPLIED PTS OWN CIRC AID COMPRESSION WRAP Left -Multi-Layered Wrap Application Multi-Layer Multi-Layer Comp - Left ($) Comp - Left ($) Treatment Response Procedure Procedure Procedure Tolerated Well Tolerated Well Tolerated Well Pain Scale: 0-10 Numeric Is Patient Pain Free? Yes Yes Yes Teaching: Wound Center Dressing Your Wound -Person Taught Patient -Teaching Method Discussion, Demonstration -Response to teaching Verbalize understanding Compression Wraps & Stockings -Person Taught Patient -Teaching Method Discussion, Demonstration -Response to teaching Verbalize understanding WC - Visit Discharge Discharge Condition Stable Stable Stable Ambulatory Status Ambulatory Ambulatory,Cane Ambulatory,Cane Transportation Private Auto [facility] Private Auto Medication Reconcilliation completed & No No provided to patient/care provider Clinical Summary of Care Provided Yes Yes Wound debrided: Venous leg ulcer left lower extremity Laterality: Left Type of Debridement: Excisional debridement Anesthesia Used: 5% Lidocaine Gel Depth: in the subcutaneous layer Percentage of wound debrided: 100 Instrument Used: 5mm curette Tissue Removed: Slough and devitalized tissue Severity: Fat Layer Exposed Amount of bleeding with debridement: Mild Bleeding Controlled with: Pressure Patient tolerated procedure well Assessment/Plan Active Problems (Last Reviewed 12/29/19 @ 12:18 by Maureen Dove) Morbid obesity with BMI of 40.0-44.9, adult (Chronic) Bilateral lower extremity edema (Chronic) PVD (peripheral vascular disease) (Chronic) Lymphedema (Chronic) Chronic kidney disease (CKD) (Chronic) Venous stasis ulcer of left lower extremity (Acute) Essential hypertension (Chronic) Atherosclerosis of coronary artery bypass graft without angina pectoris (Chronic) CABG x6 ; Internal Mammary to Anterior Descending, SVG to diag branch of the Anterior descending,SVG to the lateral & posteriorlateral CX, SVG to Posterior Descending and continuation branches of the RCA 02/27/03 Chronic systolic congestive heart failure (Chronic) Assessment: Venous leg ulcer left lower extremity. Lymphatic filariasis, chronic, suspected. Lymphedema, chronic. Bilateral lower extremity edema, chronic. PVD, chronic. Morbid obesity, chronic Plan: The patient was seen and examined at the wound center today and was updated on the plan of care. Patient's wound care will consist of bilateral 3M wraps with moistened silver cell on top of the ulceration to the left lower extremity. He will continue to follow-up with lymphedema clinic. Patient educated on the importance of diet on wound healing and instructed to increase protein and vitamin C intake. Patient verbalized understanding. Patient has been advised to elevate lower extremities as much as possible. Elevation is to be implemented during daytime hours and legs are to be elevated to heart level, or higher, as much as possible. Prolonged idle sitting has been discouraged. Activity and ambulation has been encouraged. Venous Doppler study completed 06/03/2019: Right great saphenous vein is absent, having been previously h arvested; left great saphenous vein incompetent below the knee; right accessory saphenous vein and right mid calf is incompetent; otherwise normal venous Doppler study, see full report for further details. Arterial studies completed 06/03/2019: No evidence of significant arterial occlusive disease in bilateral lower extremities, see full report for further details. Note: [employer] speech recognition radiologic technology instructor software was used to create portions of this document. Sound-alike and misspelled words, as well as other radiologic technology instructor errors may be contained in the documentation. [id number]: [id number] Karyna subq tissue 20 sq cm/< Add On Codes: [id number] Karyna subq tissue add-on
[2020-01-20 17:30] VITALS: BP 115/45; PULSE 68; RESP 18; TEMP 36.3; BMI 44.7
[2020-01-22 15:38] VITALS: BP 134/74; PULSE 75; RESP 18; TEMP 36.6; BMI 44.7
--- NOTE | 2020-01-22 16:55 | PN.PCM_ITS ---
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 Status: Chronic Current Visit: Yes Qualifiers: Code(s): I25.810 - Atherosclerosis of coronary artery bypass graft(s) without angina pectoris Comment: CABG x6 ; Internal Mammary to Anterior Descending, SVG to diag branch of the Anterior descending,SVG to the lateral & posteriorlateral CX, SVG to Posterior Descending and continuation branches of the RCA 02/27/03 (3) Bilateral lower extremity edema Status: Chronic Current Visit: Yes Code(s): R60.0 - Localized edema (4) Chronic kidney disease (CKD) Status: Chronic Current Visit: Yes Code(s): N18.9 - Chronic kidney disease, unspecified (5) Chronic systolic congestive heart failure Status: Chronic Current Visit: Yes Code(s): I50.22 - Chronic systolic (congestive) heart failure (6) Essential hypertension Status: Chronic Current Visit: Yes Code(s): I10 - Essential (primary) hypertension (7) Lymphedema Status: Chronic Current Visit: Yes Code(s): I89.0 - Lymphedema, not elsewhere classified (8) Morbid obesity with BMI of 40.0-44.9, adult Status: Chronic Current Visit: Yes Code(s): E66.01 - Morbid (severe) obesity due to excess calories; Z68.41 - Body mass index (BMI) 40.0-44.9, adult (9) PVD (peripheral vascular disease) Status: Chronic Current Visit: Yes Code(s): I73.9 - Peripheral vascular disease, unspecified Type of Wound Date of Service: 01/22/20 Chief Complaint: swelling of both legs and nonhealing ulcer to left lower extremity History of Wound: Patient is a pleasant 63-year-old male who goes by the name of Marilynn, who presents 11/27/2019 with complaint of swelling to bilateral lower extremities, and wounds to bilateral legs. There is a mild language barrier, and no translation is available at initial appointment. The patient reports that he has had swelling in his bilateral lower extremities for many years, as well as lymphedema. He is originally from [facility], and reports moving to the [place] about 25 years ago. He reports his swelling has gotten worse in the last few months with now open wounds to his lower extremities for the last couple of months as well. He has been using triple antibiotic ointment to both legs, and wrapping with Kerlix. He has not been using any compression, he states that he followed up with the lymphedema clinic in the past and that they have provided him with compression that was too difficult to use. Patient has a PMH significant for type 2 diabetes mellitus, morbid obesity, CHF, pulmonary hypertension, HI, ischemic cardiomyopathy, and hyperlipidemia. He is currently managed by Dr. Sandoval at [facility] as his PCP. He is ambulatory with a cane. He does report living with family at home, who can aid in his care as needed. He denies any other acute concerns. He denies any systemic signs of infection at this time. Progress of Wound: 01/08/2020?patient returns to the clinic for new ulceration to his left lower extremity, this happened shortly after the 3M wraps were removed and patient was not compliant with his lymphedema management compression wraps at home. He does have CircAid's but does not always utilize them. He notes increasing drainage from the ulceration, however it is only been present now for approximately 5 or 6 days. He is following up routinely with [facility] lymph edema clinic as well. Denies any acute concerns. All other systems reviewed and negative with exception of those listed above. 01/15/2020?patient does note increased in drainage and foul smell from wounds, culture collected of the ulceration to the left lower extremity, otherwise no new concerns. No worsening swelling or systemic signs of infection at this time. 01/22/2020?patient notes increased drainage and foul smell, his recent cultures were reviewed and showed multiple bacteria which were susceptible to ciprofloxacin, patient tolerating the ciprofloxacin well Purapply am also applied today, otherwise no new concerns, anaerobes pending at this time. - Physical Exam Vital Signs Temp Pulse Resp BP 98 F 75 18 134/74 H 01/22/20 15:38 01/22/20 15:38 01/22/20 15:38 01/22/20 15:38 General: Alert, Oriented x3, Cooperative, No apparent distress HEENT: Atraumatic Oral: Moist Mucosa Lungs: Clear to auscultation, Normal air movement Cardiovascular: Regular rate, Regular Rhythm Abdomen: Soft Extremities: No clubbing, No cyanosis, Diminished Peripheral Pulses, Edema - 2+ pitting edema bilateral lower extremities Skin: Ulcer/ Wound - See nursing documentation, large amount of slough and devitalized tissue present, no obvious infection at this time, drainage does have foul smell to it Wound Measurements and Assessment WC - Nurse 1 - General Ulcer Measurement Start: 01/08/20 15:30 Freq: Status: Active Protocol: Activity Type Activity Date Activity User E-Sign Co-Sign Detail Recorded Client Recorded Date Recorded By Document 01/22/20 15:38 RB [id number] 01/22/20 15:42 RB 01/22/20 15:38 Wound Center Nurse 1 [Ulcer Assessment] #4 LLE Circ -Combined with other wound No -Current Size (cm) - Length 15.9 -Current Size (cm) - Width 17.5 -Current Size (cm) - Depth 0.1 -Total Square Cm 278.25 -Tunneling No -Undermining/Tunneling No -Circular Undermining No -Exudate Amt Large -Exudate Type Serosanguineous -Wound Margin Flat & Intact -Granulation Amt Large (67-100%) -Granulation Quality [place] -Slough/Fibrin Yes -Necrosis Amt Small (1-33%) -Necrotic Tissue Type Adherent Slough -Structure Exposed N/A -Texture (Nicolle-wound Skin Appearance) Assessed, Localized Edema -Moisture (Nicolle-wound Skin Appearance Assessed, ) Weeping -Color (Nicolle-wound Skin Appearance) Assessed -Temperature (Nicolle-wound Skin No Abnormality Appearance) (Pt Warm) -Tenderness on Palpation (Nicolle-wound No Skin Appearance) -Ulcer Cleansing Wound Cleanser -Foul Odor after Cleansing No -Anesthetic Used 4% Lidocaine Solution [Edema Assessment] -Lower Limb Edema Present Yes -Left Calf (cm) 45.6 -Left Ankle (cm) 33.9 WC - Nurse 2 - General Ulcer CM Notes Start: 01/08/20 15:30 Freq: Status: Active Protocol: Activity Type Activity Date Activity User E-Sign Co-Sign Detail Recorded Client Recorded Date Recorded By Document 01/20/20 17:30 PL [id number] 01/20/20 17:33 PL Document 01/22/20 15:51 MW [id number] 01/22/20 16:01 MW 01/20/20 01/22/20 17:30 15:51 Pain Scale: 0-10 Numeric [Pain] -Is Patient Pain Free? Yes Yes [See Physician Procedure note for Specifics] [Procedure/Treatment] #4 LLE Circ -Time 15:52 -Correct Patient Yes -Correct Side, Site, Position Yes -Correct Procedure Yes -Procedure Performed Yes -Type of Procedure Debridement -Clinical Debridement Subcutaneous -Tissue Removed Subcutaneous -Post Debridement (cm) - Length 13.0 -Post Debridement (cm) - Width 12.0 -Post Debridement (cm) - Depth 0.1 -Total Square (Post) (cm) 156.00 -Area of Debridement (cm) - Length 13.0 -Area of Debridement (cm) - Width 12.0 -Total Square (Area) (cm) 156.00 -Tunneling No -Undermining/Tunneling No -Circular Undermining No -Wound/Ulcer Outcome Not Healed -Ulcer Cleansing Rinsed/ Irrigated with Saline -Foul Odor after Cleansing No -Bioengineered Tissue Yes -Type of Bioengineered Tissue PuraPly AM -Expiration Date 10/03/20 -Product Lot Number [id number] -Percent Used 100 -Saline Lot Number [id number] -Bleeding Controlled with Pressure -Offloading No -Debridement - Subq, 1st 20sq cm No -Apply Skin Sub - 1st 100 sq cm - 1 Legs -Apply Skin Sub - each addt'l 100 sq 1 cm - Legs -PuraPly AM (per sq cm) 99 Wound Center Nurse 2 [See Physician Procedure note for Specifics] WC - Nurse 3 - General Ulcer D/C NN Start: 01/08/20 15:30 Freq: Status: Active Protocol: Activity Type Activity Date Activity User E-Sign Co-Sign Detail Recorded Client Recorded Date Recorded By Document 01/20/20 17:30 PL [id number] 01/20/20 17:33 PL Document 01/22/20 16:05 RB [id number] 01/22/20 16:07 RB 01/20/20 01/22/20 17:30 16:05 Pain Scale: 0-10 Numeric [Pain] -Is Patient Pain Free? Yes Yes Teaching: Wound Center [Wound Center Education] (Items with an * have Printed Materials Available- Please identify what is given to patient under the Teaching materials given to patient and caregiver Section. Compression Wraps & Stockings -Person Taught Patient -Teaching Method Discussion -Response to teaching Reinforcement needed Wound Care Nurse 3 [Wound Dressing] #4 LLE Circ -Primary Dressing Applied Silvercel Aquacel Extra, NonAdherent Contact Layer -Aquacel Extra 2 -Silvercel 2 [Compression Applied] Left -Multi-Layered Wrap Application Multi-Layer Multi-Layer Comp - Left ($) Comp - Left ($) [Post Procedure Tolerated] -Treatment Response Procedure Tolerated Well WC - Visit Discharge [Visit Discharge Information] -Discharge Condition Stable -Ambulatory Status Ambulatory,Cane -Transportation Private Auto -Medication Reconcilliation completed No & provided to patient/care provider -Clinical Summary of Care Provided Yes Neurological: Neuro grossly intact Psych/Mental Status: Normal Affect, Appropriate, Alert and oriented to time, place, person, mood and affect Debridement Note Post-Debridement Measurements/Treatment WC - Nurse 2 - General Ulcer CM Notes Start: 01/08/20 15:30 Freq: Status: Active Protocol: Activity Type Activity Date Activity User E-Sign Co-Sign Detail Recorded Client Recorded Date Recorded By Document 01/08/20 15:50 MW [id number] 01/08/20 15:54 MW Document 01/15/20 15:57 MW [id number] 01/15/20 16:03 MW Document 01/20/20 17:30 PL [id number] 01/20/20 17:33 PL Document 01/22/20 15:51 MW [id number] 01/22/20 16:01 MW 01/08/20 01/15/20 01/20/20 15:50 15:57 17:30 Wound Center Nurse 2 #4 LLE Circ -Time 15:51 16:01 -Correct Patient Yes Yes -Correct Side, Site, Position Yes Yes -Correct Procedure Yes Yes -Procedure Performed Yes Yes -Type of Procedure Debridement Debridement -Clinical Debridement Subcutaneous Subcutaneous -Tissue Removed Subcutaneous Subcutaneous -Post Debridement (cm) - Length 14.5 12.5 -Post Debridement (cm) - Width 9.0 11.0 -Post Debridement (cm) - Depth 0.1 0.1 -Total Square (Post) (cm) 130.50 137.50 -Area of Debridement (cm) - Length 14.5 12.5 -Area of Debridement (cm) - Width 9.0 11.0 -Total Square (Area) (cm) 130.50 137.50 -Tunneling No No -Undermining/Tunneling No No -Circular Undermining No No -Wound/Ulcer Outcome Not Healed Not Healed -Ulcer Cleansing Rinsed/ Rinsed/ Irrigated with Irrigated with Saline Saline -Foul Odor after Cleansing No No -Bioengineered Tissue No No -Type of Bioengineered Tissue -Expiration Date -Product Lot Number -Percent Used -Saline Lot Number -Bleeding Controlled with Pressure Pressure -Offloading No No -Treatment Response Procedure Tolerated Well -Debridement - Subq, 1st 20sq cm Yes Yes -Debridement, SubQ, ea addt'l 20sq cm 6 6 or part thereof -Apply Skin Sub - 1st 100 sq cm - Legs -Apply Skin Sub - each addt'l 100 sq cm - Legs -PuraPly AM (per sq cm) Pain Scale: 0-10 Numeric Is Patient Pain Free? Yes Yes Yes 01/22/20 15:51 Wound Center Nurse 2 #4 LLE Circ -Time 15:52 -Correct Patient Yes -Correct Side, Site, Position Yes -Correct Procedure Yes -Procedure Performed Yes -Type of Procedure Debridement -Clinical Debridement Subcutaneous -Tissue Removed Subcutaneous -Post Debridement (cm) - Length 13.0 -Post Debridement (cm) - Width 12.0 -Post Debridement (cm) - Depth 0.1 -Total Square (Post) (cm) 156.00 -Area of Debridement (cm) - Length 13.0 -Area of Debridement (cm) - Width 12.0 -Total Square (Area) (cm) 156.00 -Tunneling No -Undermining/Tunneling No -Circular Undermining No -Wound/Ulcer Outcome Not Healed -Ulcer Cleansing Rinsed/ Irrigated with Saline -Foul Odor after Cleansing No -Bioengineered Tissue Yes -Type of Bioengineered Tissue PuraPly AM -Expiration Date 10/03/20 -Product Lot Number [id number] -Percent Used 100 -Saline Lot Number [id number] -Bleeding Controlled with Pressure -Offloading No -Treatment Response -Debridement - Subq, 1st 20sq cm No -Debridement, SubQ, ea addt'l 20sq cm or part thereof -Apply Skin Sub - 1st 100 sq cm - Legs 1 -Apply Skin Sub - each addt'l 100 sq 1 cm - Legs -PuraPly AM (per sq cm) 99 Pain Scale: 0-10 Numeric Is Patient Pain Free? Yes WC - Nurse 3 - General Ulcer D/C NN Start: 01/08/20 15:30 Freq: Status: Active Protocol: Activity Type Activity Date Activity User E-Sign Co-Sign Detail Recorded Client Recorded Date Recorded By Document 01/08/20 16:07 RB [id number] 01/08/20 16:09 RB Document 01/13/20 13:39 BMF [id number] 01/13/20 13:41 BMF Document 01/15/20 16:07 RB [id number] 01/15/20 16:08 RB Document 01/20/20 17:30 PL [id number] 01/20/20 17:33 PL Document 01/22/20 16:05 RB [id number] 01/22/20 16:07 RB 01/08/20 01/13/20 01/15/20 16:07 13:39 16:07 Wound Care Nurse 3 #4 LLE Circ -Ulcer Cleansing Wound Cleanser Rinsed/ Rinsed/ Irrigated with Irrigated with Saline Saline -Foul Odor after Cleansing No -Primary Dressing Applied Silvercel Silvercel Silvercel -Primary Dressing Covered/Secured with Dry Gauze,Dry Other Gauze & Roll Gauze,Secured with Tape -Other Covering abd ABD ABD -Aquacel Extra -Silvercel 1 1 1 Right -Other APPLIED PTS OWN CIRC AID COMPRESSION WRAP Left -Multi-Layered Wrap Application Multi-Layer Multi-Layer Comp - Left ($) Comp - Left ($) Treatment Response Procedure Procedure Procedure Tolerated Well Tolerated Well Tolerated Well Pain Scale: 0-10 Numeric Is Patient Pain Free? Yes Yes Yes Teaching: Wound Center Dressing Your Wound -Person Taught Patient -Teaching Method Discussion, Demonstration -Response to teaching Verbalize understanding Compression Wraps & Stockings -Person Taught Patient -Teaching Method Discussion, Demonstration -Response to teaching Verbalize understanding WC - Visit Discharge Discharge Condition Stable Stable Stable Ambulatory Status Ambulatory Ambulatory,Cane Ambulatory,Cane Transportation Private Auto [facility] Private Auto Medication Reconcilliation completed & No No provided to patient/care provider Clinical Summary of Care Provided Yes Yes 01/20/20 01/22/20 17:30 16:05 Wound Care Nurse 3 #4 LLE Circ -Ulcer Cleansing -Foul Odor after Cleansing -Primary Dressing Applied Silvercel Aquacel Extra, NonAdherent Contact Layer -Primary Dressing Covered/Secured with -Other Covering -Aquacel Extra 2 -Silvercel 2 Right -Other Left -Multi-Layered Wrap Application Multi-Layer Multi-Layer Comp - Left ($) Comp - Left ($) Treatment Response Procedure Tolerated Well Pain Scale: 0-10 Numeric Is Patient Pain Free? Yes Yes Teaching: Wound Center Dressing Your Wound -Person Taught -Teaching Method -Response to teaching Compression Wraps & Stockings -Person Taught Patient -Teaching Method Discussion -Response to teaching Reinforcement needed WC - Visit Discharge Discharge Condition Stable Ambulatory Status Ambulatory,Cane Transportation Private Auto Medication Reconcilliation completed & No provided to patient/care provider Clinical Summary of Care Provided Yes Wound debrided: Left venous leg ulcer Laterality: Left Type of Debridement: Excisional debridement Anesthesia Used: 5% Lidocaine Gel Depth: in the subcutaneous layer Percentage of wound debrided: 100 Instrument Used: 5mm curette Tissue Removed: Slough and devitalized tissue Severity: Fat Layer Exposed Amount of bleeding with debridement: Mild Bleeding Controlled with: Pressure Patient tolerated procedure well Assessment/Plan Active Problems (Last Reviewed 12/29/19 @ 12:18 by Maureen Dove) Morbid obesity with BMI of 40.0-44.9, adult (Chronic) Bilateral lower extremity edema (Chronic) PVD (peripheral vascular disease) (Chronic) Lymphedema (Chronic) Chronic kidney disease (CKD) (Chronic) Venous stasis ulcer of left lower extremity (Acute) Essential hypertension (Chronic) Atherosclerosis of coronary artery bypass graft without angina pectoris (Chronic) CABG x6 ; Internal Mammary to Anterior Descending, SVG to diag branch of the Anterior descending,SVG to the lateral & posteriorlateral CX, SVG to Posterior Descending and continuation branches of the RCA 02/27/03 Chronic systolic congestive heart failure (Chronic) Assessment: Venous leg ulcer left lower extremity. Lymphatic filariasis, chronic, suspected. Lymphedema, chronic. Bilateral lower extremity edema, chronic. PVD, chronic. Morbid obesity, chronic Plan: The patient was seen and examined at the wound center today and was updated on the plan of care. Patient's wound care will consist of bilateral 3M wraps with first application of purapply a.m. was applied today, 100% of the product was utilized without any wastage, secured with Steri-Strips and Adaptic to the ulceration to the left lower extremity. He will continue to follow-up with lymphedema clinic. Patient educated on the importance of diet on wound healing and instructed to increase protein and vitamin C intake. Patient verbalized understanding. Patient has been advised to elevate lower extremities as much as possible. Elevation is to be implemented during daytime hours and legs are to be elevated to heart level, or higher, as much as possible. Prolonged idle sitting has been discouraged. Activity and ambulation has been encouraged. Venous Doppler study completed 06/03/2019: Right great saphenous vein is absent, having been previously harvested; left great saphenous vein incompetent below the knee; right accessory saphenous vein and right mid calf is incompetent; otherwise normal venous Doppler study, see full report for further details. Arterial studies completed 06/03/2019: No evidence of significant arterial occlusive disease in bilateral lower extremities, see full report for further details. Note: [employer] speech recognition fire information officer software was used to create portions of this document. Sound-alike and misspelled words, as well as other fire information officer errors may be contained in the documentation. [id number]: [id number] Skin sub graft trnk/arm/leg
[2020-01-27 13:53] VITALS: BP 119/102; PULSE 67; RESP 18; TEMP 35.9; BMI 44.7
[2020-01-29 14:49] VITALS: BP 135/70; PULSE 67; RESP 20; TEMP 36.2; BMI 44.7
[2020-01-29 15:32] VITALS: BP 124/73; PULSE 91; RESP 18
--- NOTE | 2020-01-29 16:43 | PN.PCM_ITS ---
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 Status: Chronic Current Visit: Yes Qualifiers: Code(s): I25.810 - Atherosclerosis of coronary artery bypass graft(s) without angina pectoris Comment: CABG x6 ; Internal Mammary to Anterior Descending, SVG to diag branch of the Anterior descending,SVG to the lateral & posteriorlateral CX, SVG to Posterior Descending and continuation branches of the RCA 02/27/03 (3) Bilateral lower extremity edema Status: Chronic Current Visit: Yes Code(s): R60.0 - Localized edema (4) Chronic kidney disease (CKD) Status: Chronic Current Visit: Yes Code(s): N18.9 - Chronic kidney disease, unspecified (5) Chronic systolic congestive heart failure Status: Chronic Current Visit: Yes Code(s): I50.22 - Chronic systolic (congestive) heart failure (6) Essential hypertension Status: Chronic Current Visit: Yes Code(s): I10 - Essential (primary) hypertension (7) Lymphedema Status: Chronic Current Visit: Yes Code(s): I89.0 - Lymphedema, not elsewhere classified (8) Morbid obesity with BMI of 40.0-44.9, adult Status: Chronic Current Visit: Yes Code(s): E66.01 - Morbid (severe) obesity due to excess calories; Z68.41 - Body mass index (BMI) 40.0-44.9, adult (9) PVD (peripheral vascular disease) Status: Chronic Current Visit: Yes Code(s): I73.9 - Peripheral vascular disease, unspecified Type of Wound Date of Service: 01/29/20 Chief Complaint: swelling of both legs and nonhealing ulcer to left lower extremity History of Wound: Patient is a pleasant 63-year-old male who goes by the name of Marilynn, who presents 11/27/2019 with complaint of swelling to bilateral lower extremities, and wounds to bilateral legs. There is a mild language barrier, and no translation is available at initial appointment. The patient reports that he has had swelling in his bilateral lower extremities for many years, as well as lymphedema. He is originally from [facility], and [place] moving to the [place] about 25 years ago. He reports his swelling has gotten worse in the last few months with now open wounds to his lower extremities for the last couple of months as well. He has been using triple antibiotic ointment to both legs, and wrapping with Kerlix. He has not been using any compression, he states that he followed up with the lymphedema clinic in the past and that they have provided him with compression that was too difficult to use. Patient has a PMH significant for type 2 diabetes mellitus, morbid obesity, CHF, pulmonary hypertension, NV, ischemic cardiomyopathy, and hyperlipidemia. He is currently managed by Dr. Sandoval at [facility] as his PCP. He is ambulatory with a cane. He does report living with family at home, who can aid in his care as needed. He denies any other acute concerns. He denies any systemic signs of infection at this time. Progress of Wound: 01/08/2020?patient returns to the clinic for new ulceration to his left lower extremity, this happened shortly after the 3M wraps were removed and patient was not compliant with his lymphedema management compression wraps at home. He does have CircAid's but does not always utilize them. He notes increasing drainage from the ulceration, however it is only been present now for approximately 5 or 6 days. He is following up routinely with [facility] lymph edema clinic as well. Denies any acute concerns. All other systems reviewed and negative with exception of those listed above. 01/15/2020?patient does note increased in drainage and foul smell from wounds, culture collected of the ulceration to the left lower extremity, otherwise no new concerns. No worsening swelling or systemic signs of infection at this time. 01/22/2020?patient notes increased drainage and foul smell, his recent cultures were reviewed and showed multiple bacteria which were susceptible to ciprofloxacin, patient tolerating the ciprofloxacin well Purapply am also applied today, otherwise no new concerns, anaerobes pending at this time. 01/29/2020?patient tolerating the Cipro well, he did grow anaerobes and will be placed on Augmentin twice daily for 10 days as well, he did well with the pure apply a.m. and his wound has diminished drastically in size. Otherwise no new concerns. He has been seen multiple times by [facility] lymphedema clinic and completed their physical therapy exercise program and has been utilizing CircAid's when not utilizing the compression prescribed from wound healing center and he is still having difficulty with managing his lymphedema. Do feel that he would benefit from the use of lymphedema pumps. - Physical Exam Vital Signs Temp Pulse Resp BP 97.1 F L 91 18 124/73 H 01/29/20 14:49 01/29/20 15:32 01/29/20 15:32 01/29/20 15:32 General: Alert, Oriented x3, Cooperative, No apparent distress HEENT: Atraumatic Oral: Moist Mucosa Lungs: Clear to auscultation, Normal air movement Cardiovascular: Regular rate, Regular Rhythm Abdomen: Soft, Non Tender Extremities: No clubbing, No cyanosis, Edema - 2+ pitting edema bilateral lower extremities Skin: Ulcer/ Wound - See nursing documentation, slough and devitalized tissue, no signs of obvious infection at this time Wound Measurements and Assessment WC - Nurse 1 - General Ulcer Measurement Start: 01/08/20 15:30 Freq: Status: Active Protocol: Activity Type Activity Date Activity User E-Sign Co-Sign Detail Recorded Client Recorded Date Recorded By Document 01/27/20 13:53 [facility] [id number] 01/27/20 13:54 [facility] Document 01/29/20 14:49 DL [id number] 01/29/20 14:57 DL 01/27/20 01/29/20 13:53 14:49 [Ulcer Assessment] #4 LLE Circ -Current Size (cm) - Length 15 -Current Size (cm) - Width 21 -Current Size (cm) - Depth 0.1 -Total Square Cm 315 -Photo Taken No -Exudate Amt Large -Exudate Type Serosanguineous -Wound Margin Indistinct, Non -Visible -Granulation Amt Large (67-100%) -Granulation Quality [place] -Necrosis Amt Small (1-33%) -Necrotic Tissue Type Adherent Slough -Structure Exposed N/A -Texture (Nicolle-wound Skin Appearance) Localized Edema ,Scarring -Moisture (Nicolle-wound Skin Appearance Weeping ) -Color (Nicolle-wound Skin Appearance) Erythema, Hemosiderin Staining -Temperature (Nicolle-wound Skin No Abnormality Appearance) (Pt Warm) -Tenderness on Palpation (Nicolle-wound No Skin Appearance) -Ulcer Cleansing Wound Cleanser -Foul Odor after Cleansing No -Anesthetic Used 4% Lidocaine Solution Wound Center Nurse 1 [Edema Assessment] -Lower Limb Edema Present Yes -Left Calf (cm) 42.8 46 -Left Ankle (cm) 33.8 35 - Nurse 2 - General Ulcer CM Notes Start: 01/08/20 15:30 Freq: Status: Active Protocol: Activity Type Activity Date Activity User E-Sign Co-Sign Detail Recorded Client Recorded Date Recorded By Document 01/29/20 15:13 MW [id number] 01/29/20 15:17 MW 01/29/20 15:13 Wound Center Nurse 2 [Procedure/Treatment] #4 LLE Circ -Time 15:13 -Correct Patient Yes -Correct Side, Site, Position Yes -Correct Procedure Yes -Procedure Performed Yes -Type of Procedure Debridement -Clinical Debridement Subcutaneous -Tissue Removed Subcutaneous -Post Debridement (cm) - Length 1.5 -Post Debridement (cm) - Width 1.0 -Post Debridement (cm) - Depth 0.1 -Total Square (Post) (cm) 1.50 -Area of Debridement (cm) - Length 1.5 -Area of Debridement (cm) - Width 1.0 -Total Square (Area) (cm) 1.50 -Tunneling No -Undermining/Tunneling No -Circular Undermining No -Wound/Ulcer Outcome Not Healed -Ulcer Cleansing Rinsed/ Irrigated with Saline -Foul Odor after Cleansing No -Bioengineered Tissue No -Bleeding Controlled with Pressure -Offloading No -Treatment Response Procedure Tolerated Well -Debridement - Subq, 1st 20sq cm Yes [See Physician Procedure note for Specifics] Pain Scale: 0-10 Numeric [Pain] -Is Patient Pain Free? Yes - Nurse 3 - General Ulcer D/C NN Start: 01/08/20 15:30 Freq: Status: Active Protocol: Activity Type Activity Date Activity User E-Sign Co-Sign Detail Recorded Client Recorded Date Recorded By Document 01/27/20 13:50 BMF [id number] 01/27/20 13:52 BMF Document 01/29/20 15:32 DL [id number] 01/29/20 15:37 DL 01/27/20 01/29/20 13:50 15:32 Wound Care Nurse 3 [Wound Dressing] #4 LLE Circ -Ulcer Cleansing soapy water Wound Cleanser -Foul Odor after Cleansing Yes No -Primary Dressing Applied Aquacel Extra, Other -Other Dressing puraply left Unna Boot intact -Primary Dressing Covered/Secured Dry Gauze,Other with -Other Covering abd -Aquacel Extra 2 [Compression Applied] Left -Multi-Layered Wrap Application Multi-Layer Unna Boot - Comp - Left ($) Left ($) [Post Procedure Tolerated] -Treatment Response Procedure Tolerated Well Pain Scale: 0-10 Numeric [Pain] -Is Patient Pain Free? Yes Yes Vital Signs [Pulse] -Pulse Rate (60-100) 91 -Pulse Location Monitor [Respirations] -Respiratory Rate (12-18) 18 -Respiratory rate source Observation [Blood Pressure] -Blood Pressure (90/60-120/80) 124/73 H -Blood Pressure Mean (mm Hg) 90 -Source Monitor WC - Visit Discharge [Visit Discharge Information] -Discharge Condition Stable Stable -Ambulatory Status Ambulatory,Cane Ambulatory -Transportation Private Auto -Notes: Circ Aid to RLE Musculoskeletal: No Tenderness to Palpation of Joints or Extremities Neurological: Neuro grossly intact Psych/Mental Status: Normal Affect, Appropriate, Alert and oriented to time, place, person, mood and affect Debridement Note Post-Debridement Measurements/Treatment WC - Nurse 2 - General Ulcer CM Notes Start: 01/08/20 15:30 Freq: Status: Active Protocol: Activity Type Activity Date Activity User E-Sign Co-Sign Detail Recorded Client Recorded Date Recorded By Document 01/08/20 15:50 MW [id number] 01/08/20 15:54 MW Document 01/15/20 15:57 MW [id number] 01/15/20 16:03 MW Document 01/20/20 17:30 PL [id number] 01/20/20 17:33 PL Document 01/22/20 15:51 MW [id number] 01/22/20 16:01 MW Document 01/29/20 15:13 MW [id number] 01/29/20 15:17 MW 01/08/20 01/15/20 01/20/20 15:50 15:57 17:30 Wound Center Nurse 2 #4 LLE Circ -Time 15:51 16:01 -Correct Patient Yes Yes -Correct Side, Site, Position Yes Yes -Correct Procedure Yes Yes -Procedure Performed Yes Yes -Type of Procedure Debridement Debridement -Clinical Debridement Subcutaneous Subcutaneous -Tissue Removed Subcutaneous Subcutaneous -Post Debridement (cm) - Length 14.5 12.5 -Post Debridement (cm) - Width 9.0 11.0 -Post Debridement (cm) - Depth 0.1 0.1 -Total Square (Post) (cm) 130.50 137.50 -Area of Debridement (cm) - Length 14.5 12.5 -Area of Debridement (cm) - Width 9.0 11.0 -Total Square (Area) (cm) 130.50 137.50 -Tunneling No No -Undermining/Tunneling No No -Circular Undermining No No -Wound/Ulcer Outcome Not Healed Not Healed -Ulcer Cleansing Rinsed/ Rinsed/ Irrigated with Irrigated with Saline Saline -Foul Odor after Cleansing No No -Bioengineered Tissue No No -Type of Bioengineered Tissue -Expiration Date -Product Lot Number -Percent Used -Saline Lot Number -Bleeding Controlled with Pressure Pressure -Offloading No No -Treatment Response Procedure Tolerated Well -Debridement - Subq, 1st 20sq cm Yes Yes -Debridement, SubQ, ea addt'l 20sq cm 6 6 or part thereof -Apply Skin Sub - 1st 100 sq cm - Legs -Apply Skin Sub - each addt'l 100 sq cm - Legs -PuraPly AM (per sq cm) Pain Scale: 0-10 Numeric Is Patient Pain Free? Yes Yes Yes 01/22/20 01/29/20 15:51 15:13 Wound Center Nurse 2 #4 LLE Circ -Time 15:52 15:13 -Correct Patient Yes Yes -Correct Side, Site, Position Yes Yes -Correct Procedure Yes Yes -Procedure Performed Yes Yes -Type of Procedure Debridement Debridement -Clinical Debridement Subcutaneous Subcutaneous -Tissue Removed Subcutaneous Subcutaneous -Post Debridement (cm) - Length 13.0 1.5 -Post Debridement (cm) - Width 12.0 1.0 -Post Debridement (cm) - Depth 0.1 0.1 -Total Square (Post) (cm) 156.00 1.50 -Area of Debridement (cm) - Length 13.0 1.5 -Area of Debridement (cm) - Width 12.0 1.0 -Total Square (Area) (cm) 156.00 1.50 -Tunneling No No -Undermining/Tunneling No No -Circular Undermining No No -Wound/Ulcer Outcome Not Healed Not Healed -Ulcer Cleansing Rinsed/ Rinsed/ Irrigated with Irrigated with Saline Saline -Foul Odor after Cleansing No No -Bioengineered Tissue Yes No -Type of Bioengineered Tissue PuraPly AM -Expiration Date 10/03/20 -Product Lot Number [id number] -Percent Used 100 -Saline Lot Number [id number] -Bleeding Controlled with Pressure Pressure -Offloading No No -Treatment Response Procedure Tolerated Well -Debridement - Subq, 1st 20sq cm No Yes -Debridement, SubQ, ea addt'l 20sq cm or part thereof -Apply Skin Sub - 1st 100 sq cm - Legs 1 -Apply Skin Sub - each addt'l 100 sq 1 cm - Legs -PuraPly AM (per sq cm) 128 Pain Scale: 0-10 Numeric Is Patient Pain Free? Yes Yes WC - Nurse 3 - General Ulcer D/C NN Start: 01/08/20 15:30 Freq: Status: Active Protocol: Activity Type Activity Date Activity User E-Sign Co-Sign Detail Recorded Client Recorded Date Recorded By Document 01/08/20 16:07 RB [id number] 01/08/20 16:09 RB Document 01/13/20 13:39 BM [id number] 01/13/20 13:41 BM Document 01/15/20 16:07 RB [id number] 01/15/20 16:08 RB Document 01/20/20 17:30 PL [id number] 01/20/20 17:33 PL Document 01/22/20 16:05 RB [id number] 01/22/20 16:07 RB Document 01/27/20 13:50 BMF [id number] 01/27/20 13:52 BM Document 01/29/20 15:32 DL [id number] 01/29/20 15:37 DL 01/08/20 01/13/20 01/15/20 16:07 13:39 16:07 Wound Care Nurse 3 #4 LLE Circ -Ulcer Cleansing Wound Cleanser Rinsed/ Rinsed/ Irrigated with Irrigated with Saline Saline -Foul Odor after Cleansing No -Primary Dressing Applied Silvercel Silvercel Silvercel -Other Dressing -Primary Dressing Covered/Secured with Dry Gauze,Dry Other Gauze & Roll Gauze,Secured with Tape -Other Covering abd ABD ABD -Aquacel Extra -Silvercel 1 1 1 Right -Other APPLIED PTS OWN CIRC AID COMPRESSION WRAP Left -Multi-Layered Wrap Application Multi-Layer Multi-Layer Comp - Left ($) Comp - Left ($) Treatment Response Procedure Procedure Procedure Tolerated Well Tolerated Well Tolerated Well Pain Scale: 0-10 Numeric Is Patient Pain Free? Yes Yes Yes Vital Signs Pulse Rate (60-100) Pulse Location Respiratory Rate (12-18) Respiratory rate source Blood Pressure (90/60-120/80) Blood Pressure Mean (mm Hg) Source Teaching: Wound Center Dressing Your Wound -Person Taught Patient -Teaching Method Discussion, Demonstration -Response to teaching Verbalize understanding Compression Wraps & Stockings -Person Taught Patient -Teaching Method Discussion, Demonstration -Response to teaching Verbalize understanding WC - Visit Discharge Discharge Condition Stable Stable Stable Ambulatory Status Ambulatory Ambulatory,Cane Ambulatory,Cane Transportation Private Auto [facility] TRANSPORT Private Auto Medication Reconcilliation completed & No No provided to patient/care provider Clinical Summary of Care Provided Yes Yes Notes: 01/20/20 01/22/20 01/27/20 17:30 16:05 13:50 Wound Care Nurse 3 #4 LLE Circ -Ulcer Cleansing soapy water -Foul Odor after Cleansing Yes -Primary Dressing Applied Silvercel Aquacel Extra, Aquacel Extra, NonAdherent Other Contact Layer -Other Dressing puraply left intact -Primary Dressing Covered/Secured with Dry Gauze,Other -Other Covering abd -Aquacel Extra 2 2 -Silvercel 2 Right -Other Left -Multi-Layered Wrap Application Multi-Layer Multi-Layer Multi-Layer Comp - Left ($) Comp - Left ($) Comp - Left ($) Treatment Response Procedure Procedure Tolerated Well Tolerated Well Pain Scale: 0-10 Numeric Is Patient Pain Free? Yes Yes Yes Vital Signs Pulse Rate (60-100) Pulse Location Respiratory Rate (12-18) Respiratory rate source Blood Pressure (90/60-120/80) Blood Pressure Mean (mm Hg) Source Teaching: Wound Center Dressing Your Wound -Person Taught -Teaching Method -Response to teaching Compression Wraps & Stockings -Person Taught Patient -Teaching Method Discussion -Response to teaching Reinforcement needed WC - Visit Discharge Discharge Condition Stable Stable Ambulatory Status Ambulatory,Cane Ambulatory,Cane Transportation Private Auto Medication Reconcilliation completed & No provided to patient/care provider Clinical Summary of Care Provided Yes Notes: 01/29/20 15:32 Wound Care Nurse 3 #4 LLE Circ -Ulcer Cleansing Wound Cleanser -Foul Odor after Cleansing No -Primary Dressing Applied -Other Dressing Unna Boot -Primary Dressing Covered/Secured with -Other Covering -Aquacel Extra -Silvercel Right -Other Left -Multi-Layered Wrap Application Unna Boot - Left ($) Treatment Response Pain Scale: 0-10 Numeric Is Patient Pain Free? Yes Vital Signs Pulse Rate (60-100) 91 Pulse Location Monitor Respiratory Rate (12-18) 18 Respiratory rate source Observation Blood Pressure (90/60-120/80) 124/73 H Blood Pressure Mean (mm Hg) 90 Source Monitor Teaching: Wound Center Dressing Your Wound -Person Taught -Teaching Method -Response to teaching Compression Wraps & Stockings -Person Taught -Teaching Method -Response to teaching WC - Visit Discharge Discharge Condition Stable Ambulatory Status Ambulatory Transportation Private Auto Medication Reconcilliation completed & provided to patient/care provider Clinical Summary of Care Provided Notes: Circ Aid to RLE Wound debrided: Left lower extremity ulceration Laterality: Left Type of Debridement: Excisional debridement Anesthesia Used: 5% Lidocaine Gel Depth: Down to and including healthy tissue, in the subcutaneous layer Percentage of wound debrided: 100 Instrument Used: 5mm curette Tissue Removed: Slough and devitalized tissue Severity: Fat Layer Exposed Amount of bleeding with debridement: Mild Bleeding Controlled with: Pressure Patient tolerated procedure well Assessment/Plan Active Problems (Last Reviewed 12/29/19 @ 12:18 by Maureen Dove) Morbid obesity with BMI of 40.0-44.9, adult (Chronic) Bilateral lower extremity edema (Chronic) PVD (peripheral vascular disease) (Chronic) Lymphedema (Chronic) Chronic kidney disease (CKD) (Chronic) Venous stasis ulcer of left lower extremity (Acute) Essential hypertension (Chronic) Atherosclerosis of coronary artery bypass graft without angina pectoris (Chronic) CABG x6 ; Internal Mammary to Anterior Descending, SVG to diag branch of the Anterior descending,SVG to the lateral & posteriorlateral CX, SVG to Posterior Descending and continuation branches of the RCA 02/27/03 Chronic systolic congestive heart failure (Chronic) Assessment: Venous leg ulcer left lower extremity. Lymphatic filariasis, chronic, suspected. Lymphedema, chronic. Bilateral lower extremity edema, chronic. PVD, chronic. Morbid obesity, chronic Plan: The patient was seen and examined at the wound center today and was updated on the plan of care. Patient's wound care will consist of bilateral unna boots for compression. He will continue to follow-up with lymphedema clinic. Patient educated on the importance of diet on wound healing and instructed to increase protein and vitamin C intake. Patient verbalized understanding. Patient has been advised to elevate lower extremities as much as possible. Elevation is to be implemented during daytime hours and legs are to be elevated to heart level, or higher, as much as possible. Prolonged idle sitting has been discouraged. Activity and ambulation has been encouraged. Venous Doppler study completed 06/03/2019: Right great saphenous vein is absent, having been previously harvested; left great saphenous vein incompetent below the knee; right accessory saphenous vein and right mid calf is incompetent; otherwise normal venous Doppler study, see full report for further details. Arterial studies completed 06/03/2019: No evidence of significant arterial occlusive disease in bilateral lower extremities, see full report for further details. Note: [employer] speech recognition real estate development manager software was used to create portions of this document. Sound-alike and misspelled words, as well as other real estate development manager errors may be contained in the documentation. [id number]: [id number] Karyna subq tissue 20 sq cm/<
== END 2020-02-04 23:59 ==
LOC: WC 14:45
PROVIDERS: Family Provider Family Medicine; PCP Family Medicine; Referring Provider Nurse Practitioner Family; Visit Provider Nurse Practitioner Family
DX: I83.028 Varicose veins of left lower extremity with ulcer other part of lower leg (principal); L97.822 Non-pressure chronic ulcer of other part of left lower leg with fat layer exposed; I25.10 Atherosclerotic heart disease of native coronary artery without angina pectoris; E11.22 Type 2 diabetes mellitus with diabetic chronic kidney disease; I13.0 Hypertensive heart and chronic kidney disease with heart failure and stage 1 through stage 4 chronic kidney disease, or unspecified chronic kidney disease; I50.22 Chronic systolic (congestive) heart failure; N18.9 Chronic kidney disease, unspecified; R60.0 Localized edema; I89.0 Lymphedema, not elsewhere classified; E66.9 Obesity, unspecified; Z68.41 Body mass index [BMI] 40.0-44.9, adult; E11.51 Type 2 diabetes mellitus with diabetic peripheral angiopathy without gangrene; I25.5 Ischemic cardiomyopathy; I25.2 Old myocardial infarction; I27.20 Pulmonary hypertension, unspecified; E78.5 Hyperlipidemia, unspecified
CPT/HCPCS: 11042; 11045; 15273; 15274; 29580; 29581; 87070; 87075; 87077; 87186; 87205; Q4196

== ENCOUNTER 2020-02-01 11:46 | Inpatient (IN) | payer MEDICARE, SELFPAY ==
[2020-02-01] VITALS (9 sets, daily range): BP systolic 114–126; BP diastolic 49–80; PULSE 61–66; RESP 16–20; TEMP 36.4–36.7; O2SAT 97–100; BMI 43.7; BMI 47.4
--- NOTE | 2020-02-01 12:08 | RAD_ITS ---
STUDY: X-RAY CHEST REASON FOR EXAM: Male, 64 years old. dyspnea, edema TECHNIQUE: AP COMPARISON: 07/02/2019 FINDINGS: Cardiac conduction device is stable. EKG leads project over the chest. No airspace consolidation. There is blunting of the left costophrenic angle. There is moderate cardiac enlargement. Sternal wires and mediastinal surgical clips compatible with prior CABG. Normal visualized pulmonary arteries. There is atherosclerotic calcification of the aortic arch with tortuosity. There is demineralization of the osseous structures. Normal visualized ribs, clavicles, and shoulders. There is no demonstrated abnormality of the visualized soft tissue structures of the upper abdomen. RAD/Chest 1 View (Portable) IMPRESSION: Trace left pleural effusion, new. Electronically Signed: Ziyad Calvo MD ([place]) at 12:54 EDT , Service support ,
--- NOTE | 2020-02-01 12:08 | EKG12_ITS ---
Test Reason : EDEMA Blood Pressure : / mmHG Vent. Rate : 062 BPM Atrial Rate : 062 BPM P-R Int : 236 ms QRS Dur : 106 ms QT Int : 400 ms P-R-T Axes : 037 -05 210 degrees QTc Int : 406 ms Sinus rhythm with 1st degree A-V block Incomplete left bundle branch block T wave abnormality, consider inferior ischemia Abnormal ECG Confirmed by JOSE ANTONIO NAYAK, LAURA ([id number]), editorial cartoonist ALE GAMINO ([id number]) on 02/05/2020 8:28:12 AM Referred By: SUNG Confirmed By:GRICEL BRADY MD
--- NOTE | 2020-02-01 12:09 | ED.DCSUM_ITS ---
- ER Visit Summary Date of Service: 02/01/20 Chief Complaint: [Swelling in legs and discomfort in the abdomen] History of Present Illness: The patient is a 64 M [presents the emergency department complaint of legs that are swollen and requesting to have them wrapped. Patient is scheduled to see the wound center in 2 days. The left leg is been seeping more fluid than usual. Patient also is urinating just small amounts of urine and feels like his abdomen somewhat more distended. He denies any real significant abdominal pain. He denies any fever. Denies vomiting. Denies blood in stool or black tarry stool. Patient states that intermittently he will have some chest discomfort at night usually after midnight over his left chest that is fleeting and sharp in nature. Patient also feels little more short of breath with activity and exertion. He normally wears 2 L of home O2. Patient has multiple medical issues including coronary artery disease, diabetes, hypertension, high cholesterol, obesity, lymphedema, chronic kidney disease, and peripheral vascular disease. He has had prior CABG and does have a defibrillator.] Physical Examination: HEENT-PERRLA, EOMI. Cranial nerves II through XII grossly intact. TMs clear. Mucous membranes moist. No adenopathy. Cardiovascular-regular rate and rhythm without murmur or ectopy Lungs-aeration bilaterally. Some faint rales noted in the bases. No excessive muscle use or retractions. No respiratory difficulty. Abdomen-normoactive bowel sounds, soft, nontender. Patient does have small fluid wave noted. No cellulitis noted. Extremities-intact ?4, normal range of motion, normal pulses, atraumatic. Patient does have lymphedema both lower extremities with chronic venous stasis insufficiency noted. Patient does have some weeping wounds to the left lower extremity. Mild surrounding erythema.] Test Results: [EKG obtained on arrival showed sinus rhythm with a ventricular rate of 62 bpm. CBC with differential count 6.3, hemoglobin 10.5, hematocrit 36, platelets 215. Chemistries unremarkable. BUN was 67 and creatinine 4.66. Troponin less than 0.15. BNP was 848. Chest x-ray showed trace left pleural effusion otherwise nothing acute. Urinalysis ordered and pending. Bladder scan obtained showed over 800 cc of urine within the bladder. ] Emergency Department Course and Treatment: [IV line established on arrival. Patient had a Lee catheter placed. She was started on normal saline.] Treatment Plan: Admit [] Disposition: [Admit] Impression: [Acute kidney injury Urinary retention Peripheral edema] This note was generated with [employer] dictation software. It may contain incorrect words, spelling, and punctuation that were not noted in review of the chart prio r to signing ED Disposition - Plan for ED Patient: Referrals: Manuel Sandoval MD [Primary Care Provider] -
[2020-02-01 12:26] LABS: Absolute Lymphocyte Count 1.35 X10^3/uL (0.83-4.51); Absolute Neutrophil Count 3.9 X10^3/uL (2.0-7.7); Basophil# 0.03 X10^3/uL; Basophil% 0.5 % (0-1); Eosinophil# 0.48 X10^3/uL; Eosinophils% 7.6 % (0-5); Hematocrit 35.6 % (40-54); Hemoglobin 10.5 g/dL (13.0-16.5); Lymphocyte # 1.35 X10^3/ul (4.0); Lymphocyte % 21.3 % (19-41); Mean Corp Hgb Conc 29.5 g/dL (32-36); Mean Corpuscular Hgb 26.9 pg (27.0-32.0); Monocyte# 0.54 X10^3/uL; Monocyte% 8.5 % (0-10); NRBC Flagged by Analyzer 0 % (0-5); Neutrophil # 3.92 X10^3/uL (2.7-7.7); Neutrophil % 61.8 % (47-70); Platelet Count 215 K/mm3 (150-450); RBC Distribution Width CV 16.8 % (11.6-14.6); RBC Distribution Width SD 55.9 fl (35.1-43.9); Red Blood Count 3.91 M/mm3 (4.6-6.2); White Blood Count 6.3 K/mm3 (4.4-11.0)
[2020-02-01 12:42] LABS: BNP,B-Type NATRIURETIC PEPTIDE 848.6 pg/mL (0-100)
[2020-02-01 12:45] LABS: Anion Gap 5 (5-15); BUN 61 mg/dL (7-18); BUN/Creat Ratio 13.1 RATIO (10-20); Calcium,Total 8.2 mg/dL (8.5-10.1); Chloride 107 mmol/L (98-107); Creatinine, Serum 4.66 mg/dL (0.70-1.30); EST Glomerular Filtration Rate 14 mL/min (>60); Est Glom Filt Rate - Afr Amer 16 mL/min (>60); Estimated Creatinine Clearance 13.59 ml/min; Glucose 153 mg/dL (74-106); Sodium Level 139 mmol/L (136-145)
--- NOTE | 2020-02-01 13:18 | HP.PCM_ITS ---
Problem List (1) Urinary retention Status: Acute (2) QAMAR (acute kidney injury) Status: Acute (3) Morbid obesity with BMI of 40.0-44.9, adult Status: Chronic (4) Bilateral lower extremity edema Status: Chronic (5) PVD (peripheral vascular disease) Status: Chronic (6) CAD (coronary artery disease) Status: Chronic Qualifiers: Coronary Disease-Associated Artery/Lesion type: unspecified vessel or lesion type [place] vs. transplanted heart: unspecified whether [place] or transplanted heart Associated angina: angina presence unspecified Qualified Code(s): I25.10 - Atherosclerotic heart disease of [place] coronary artery without angina pectoris (7) Chronic kidney disease (CKD) Status: Chronic Qualifiers: Chronic kidney disease stage: stage 3 (moderate) Qualified Code(s): N18.3 - Chronic kidney disease, stage 3 (moderate) (8) Type 2 diabetes mellitus Status: Chronic Qualifiers: Diabetes mellitus usp insulin use: without bed bug exterminator use Diabetes mellitus complication status: with other specified complication Qualified Code(s): E11.69 - Type 2 diabetes mellitus with other specified complication (9) Essential hypertension Status: Chronic (10) Pure hypercholesterolemia Status: Chronic (11) Atherosclerosis of coronary artery bypass graft without angina pectoris Status: Chronic Qualifiers: Comment: CABG x6 ; Internal Mammary to Anterior Descending, SVG to diag branch of the Anterior descending,SVG to the lateral & posteriorlateral CX, SVG to Posterior Descending and continuation branches of the RCA 02/27/03 (12) Aortocoronary bypass status Status: Resolved Comment: CABG x6 ; Internal Mammary to Anterior Descending, SVG to diag branch of the Anterior descending,SVG to the lateral & posteriorlateral CX, SVG to Posterior Descending and continuation branches of the RCA 02/27/03 (13) Ischemic cardiomyopathy Status: Chronic (14) Pulmonary hypertension Status: Chronic (15) Presence of cardiac defibrillator Status: Chronic History of Present Illness Date of Admission: 02/01/20 Chief Complaint: Decreased urine output, ongoing BL LE edema, seeping wounds The patient is a 64 y/o M w/ PMHx: Former Tobacco use, Chronic BL LE Lymphedema, Chronic BL LE wounds following at [facility], Chronic Systolic CHF/ischemic cardiomyopathy, CAD s/p CABG x 6, HTN, HLD, s/p AICD placement, Diabetes mellitus type II, Chronic normocytic anemia who presents to the [facility] ED on 02/01/20 with history of ongoing decreased urine output over the last several days, intermittent suprapubic discomfort with concurrent increased stools, often soft/loose and worsened BL LE seeping from his BL LE with chronic wounds planning to [facility]. He denies any recent fever or chills. He noted urine output seemed to stop which prompted him to present to the ED for evaluation. He notes his legs are mildly increased in size and more seeping than usual also. Work-up in the ED included T 97.5, heart rate 66, BP 114/53, respiratory rate 16, 97% room air, BC with WBC 6.3, hemoglobin 10.5, platelet 215 without any evidence of market shift, BMP with BUN/creatinine 61/4.66, glucose 153, troponin less than 0.015, BNP 848.6, urinalysis pending, chest x-ray with evidence cardiac device, blunting left costophrenic angle, moderate cardiac enlargement, evidence of prior sternotomy, EKG with sinus rhythm with no acute evidence of ischemia. ED attempted placement of gann catheter x 3 including 3-way but several difficulties. Hospitalist discussed case with Dr. Loyola who noted intention to assess patient in the ED and place gann. Past Medical History Past Medical History (Chronic Problems): Chronic Problems (Last Reviewed 12/29/19 @ 12:18 by Maureen Dove) Morbid obesity with BMI of 40.0-44.9, adult (Chronic) Bilateral lower extremity edema (Chronic) PVD (peripheral vascular disease) (Chronic) Lymphedema (Chronic) Excoriation of left lower leg (Chronic) CAD (coronary artery disease) (Chronic) Chronic kidney disease (CKD) (Chronic) Type 2 diabetes mellitus (Chronic) Essential hypertension (Chronic) Pure hypercholesterolemia (Chronic) Atherosclerosis of coronary artery bypass graft without angina pectoris (Chronic) CABG x6 ; Internal Mammary to Anterior Descending, SVG to diag branch of the Anterior descending,SVG to the lateral & posteriorlateral CX, SVG to Posterior Descending and continuation branches of the RCA 02/27/03 Chronic systolic congestive heart failure (Chronic) Ischemic cardiomyopathy (Chronic) Pulmonary hypertension (Chronic) Presence of cardiac defibrillator (Chronic ~08/2004) Old myocardial infarction (Chronic) Medical History: Medical History (Last Reviewed 12/29/19 @ 12:18 by Maureen Dove) Essential hypertension (Chronic) I10 Pure hypercholesterolemia (Chronic) E78.00 Atherosclerosis of coronary artery bypass graft without angina pectoris (Chronic) I25.810 CABG x6 ; Internal Mammary to Anterior Descending, SVG to diag branch of the Anterior descending,SVG to the lateral & posteriorlateral CX, SVG to Posterior Descending and continuation branches of the RCA 02/27/03 Chronic systolic congestive heart failure (Chronic) I50.22 Ischemic cardiomyopathy (Chronic) I25.5 Pulmonary hypertension (Chronic) I27.20 Presence of cardiac defibrillator (Chronic) Onset Date: ~08/2004 Z95.810 Tachycardia (Acute) R00.0 Long-term use of high-risk medication (Inactive) Z79.899 Old myocardial infarction (Chronic) I25.2 Angina decubitus I20.8 Edema R60.9 Family history of hypertension Z82.49 Fatty liver K76.0 Type 2 diabetes mellitus E11.9 Abnormal stress test (Inactive) R94.39 Allergies No Known Allergies Allergy (Verified 02/01/20 11:51) Home Medications: Ambulatory Orders Medication Instructions Recorded Aspirin [Aspirin, Baby] 81 mg PO DAILY@0800 03/10/14 colchicine 0.6 mg capsule 0.6 mg PO DAILY cap 05/22/17 metoprolol tartrate 100 mg tablet 100 mg PO BID #180 tab 03/14/19 Magnesium Oxide [Mag-Ox 400] 400 mg PO BID 06/03/19 Allopurinol [Zyloprim] 300 mg PO DAILY 06/26/19 Amiodarone HCl 100 mg PO DAILY 06/26/19 Isosorbide Mononitrate [Isosorbide 30 mg PO QAM 06/26/19 Mononitrate ER] Lisinopril 20 mg PO BID 06/26/19 Simvastatin 20 mg PO QHS 06/26/19 predniSONE tablet 2 tab PO DAILY@0800 #8 tab 06/29/19 Metformin HCl 1,000 mg PO BID 11/27/19 Spironolactone 50 mg DAILY 11/27/19 albuterol sulfate 90 mcg/actuation 2 puff INHALATION Q4H PRN #18 g 12/04/19 aerosol inhaler Pulse Oximeter #1 ea 12/29/19 furosemide 40 mg tablet 80 mg PO BID tab 12/29/19 amoxicillin 875 mg-potassium 1 tab PO BID #20 tab 01/19/20 clavulanate 125 mg tablet Surgical History: Surgical History (Last Reviewed 12/29/19 @ 12:18 by Maureen Dove) Aortocoronary bypass status (Resolved) Onset Date: ~02/22/03 Z95.1 CABG x6 ; Internal Mammary to Anterior Descending, SVG to diag branch of the Anterior descending,SVG to the lateral & posteriorlateral CX, SVG to Posterior Descending and continuation branches of the RCA 02/27/03 Surgical History: coronary bypass surgery, - - AICD placement in addition to CABG x6. Psychiatric History: No pertinent psych hx Lives: With Family - Patient notes currently he lives with his mother as well as a sister and her . Smoking Status: Former smoker - Patient quit cigarette tobacco usage in 2000, notes very usage prior to this and cannot give exact amount but notes it was intermittent. Tobacco Use: Non-smoker Alcohol: Occasional Drugs: None - *Family History Maternal Family History: Family History (Last Reviewed 12/29/19 @ 12:18 by Maureen Dove) Mother Hypertension Sister Hypertension History Items: Hypertension Paternal Family History: Family History (Last Reviewed 12/29/19 @ 12:18 by Maureen Dove) Mother Hypertension Sister Hypertension History Items: Hypertension Sibling Family History: Family History (Last Reviewed 12/29/19 @ 12:18 by Maureen Dove) Mother Hypertension Sister Hypertension History Items: Hypertension Review of Systems Constitutional: Reports: Anorexia, Malaise, Weakness, Fatigue. Denies: Chills, Fever, Weight Change HEENT: Denies: Head Aches, Sinus Congestion, Sinus Drainage Cardiovascular: Reports: Edema, Orthopnea. Denies: Chest Pain, Chest Pressure, Chest Tightness, Light Headedness, Palpitations, Syncope Respiratory: Reports: Shortness of breath upon exertion. Denies: Cough, Shortn ess of Breath, Shortness of breath at rest, Sputum production Gastrointestinal: Denies: Abdominal Pain, Nausea, Vomiting Genitourinary: Reports: Retention. Denies: Dysuria Musculoskeletal: Reports: Joint Pain, Leg Pain. Denies: Joint Tenderness Skin: Reports: Skin Changes, Wounds. Denies: Rash Neurological: Reports: Numbness, Tingling. Denies: Focal weakness Psychiatric: Denies: Anxiety, Depression, Homicidal Ideations, Suicidal Ideations Hematologic/ Lymphatic: Reports: Anemia. Denies: Easy Bruising, Easy Bleeding VTE Information - Inpt Only VTE Present on Admission: No VTE Mechan Device Prophylaxis: SCD's VTE Pharm Prophylaxis ordered?: Yes Patient Problems: Active and Suspected Problems (Last Reviewed 12/29/19 @ 12:18 by Maureen Dove) QAMAR (acute kidney injury) (Acute) Urinary retention (Acute) Subjective: Seated upright in the ED bed, fatigued appearance, uncomfortable appearing, obvious evidence of significant lower extremity lymphedema with seeping wounds. Objective: Physical Examination: General: awake, alert, oriented x 3 and cooperative, seated upright in the ED bed, mildly uncomfortable appearing, several attempts for Gann unsuccessful. Skin: normal color, turgor, no icterus, cyanosis except significant stasis disease bilateral lower extremity with chronic significant lower extremity bilateral lymphedema, seeping wounds, no obvious significant erythema or obvious infection, 3+ pitting from mid [place] downward. HEENT: AT/NC, EOMI, PERRLA, dry MM, no carotid bruits or JVD noted. Lungs: Diminished breath sounds, greater bases, moderate effort, no rales, ronchi or wheezing. Heart: Currently regular rate and rhythm; no gallop, rub audible. Abdomen: Mildly tense, overly obese, suprapubic discomfort with palpation otherwise nontender to palpation, appears distended but difficult assessment given pain and habitus, distant bowel sounds, difficult to assess HSM secondary to habitus. Extremities: no cyanosis, clubbing, see skin, significant 3+ pitting edema mentioned downward with chronic lymphedema bilaterally. Neurological: patient awake, alert, oriented x 3; cognitive function intact; pupils equally reactive to light and accomodation; cranial nerves II-XII grossly normal, moving all 4 extremities, no focal deficits, strength severely good Seema secondary to acute presentation. Psychiatric: affect appears fatigued, uncomfortable, no acute evidence of depressive or anxiety feelings. - Physical Exam Vitals/I&O's: Vital Signs Temp Pulse Resp BP Pulse Ox 97.5 F L 66 16 114/53 L 97 02/01/20 11:48 02/01/20 11:48 02/01/20 11:48 02/01/20 11:48 02/01/20 11:48 Oxygen Delivery Method Room Air Weight: 254 lb 10.142 oz Body Mass Index (BMI) 43.7 Intake and Output for Last 24 Hours 01/30/20 01/31/20 02/01/20 23:59 23:59 23:59 Output Total 0 / 0 Balance 0 / 0 Laboratory Results 02/01/20 12:20: WBC 6.3, RBC 3.91 L, Hgb 10.5 L, Hct 35.6 L, MCV 91.0, MCH 26.9 L, MCHC 29.5 L, RDW Std Deviation 55.9 H, RDW Coeff of Aubrey 16.8 H, Plt Count 215, MPV 11.0, Immature Gran % (Auto) 0.300, Neut % (Auto) 61.8, Lymph % (Auto) 21.3, [place] % (Auto) 8.5, Eos % (Auto) 7.6 H, Baso % (Auto) 0.5, Absolute Neuts (auto) 3.9, Absolute Lymphs (auto) 1.35, Nucleated RBC % 0 02/01/20 12:20: Sodium 139, Potassium 5.0, Chloride 107, Carbon Dioxide 27.0, Anion Gap 5, BUN 61 H, Creatinine 4.66 H, Estim Creat Clear Calc 13.59, Est GFR (MDRD) Af Amer 16 L, Est GFR (MDRD) Non-Af 14 L, BUN/Creatinine Ratio 13.1, Glucose 153 H, Calcium 8.2 L, Troponin I < 0.015 02/01/20 12:20: B-Natriuretic Peptide 848.6 H Assessment/Plan All Active Problems (Last Reviewed 12/29/19 @ 12:18 by Maureen Dove) Hypoxemia (Acute) Influenza A (Acute) Venous stasis ulcer of right lower extremity (Acute) Venous stasis ulcer of left lower extremity (Acute) QAMAR (acute kidney injury) (Acute) Urinary retention (Acute) Aortocoronary bypass status (Resolved ~02/22/03) Tachycardia (Acute) The patient is a 64 y/o M w/ PMHx: CKD stage III, Chronic BL LE Lymphedema, Chronic BL LE wounds following at [facility], Chronic Systolic CHF/ischemic cardiomyopathy, CAD s/p CABG x 6, HTN, HLD, s/p AICD placement, Diabetes mellitus type II, Chronic normocytic anemia, Former Tobacco use who presents to the [facility] ED on 02/01/20 with history of ongoing decreased urine output over the last several days, intermittent suprapubic discomfort with concurrent increased stools, often soft/loose and worsened BL LE seeping from his BL LE with chronic wounds planning to [facility]-up [facility]. 1. Acute kidney injury secondary to Acute Urinary Retention, Possible UTI but no UA obtained yet on CKD stage III: Secondary to acute urinary retention, possible UTI, UA pending as having difficulty with catheter placement, awaiting urology assistance for gann placement in the ED. Will plan following Urology intervention admission to [facility], noted admission BUN/Cr 61/4.66, prior baseline creatinine noted to be 1.3-1.5, willl continue to hydrate, hold nephrotoxic medications and repeat chemistry in AM. If no improvement following catheter placement would plan FeNa assessment and renal US. Will place on BID flomax but defer alterations to Urology discretion. 2. Acute on Chronic BL LE Lymphedema with Chronic Seeping Wounds: Patient with ongoing significant bilateral lower extremity lymphedema with chronic seeping wounds, plan follow-up with wound care, given acute presentation with acute injury will continue judicious fluids and would defer any usage of diuretic, will place snug Amando wraps and elevate. Discussed concept that patient does sleep in a chair with his legs down which contributes to this cycle. 3. Chronic Systolic CHF/Ischemic Cardiomyopathy: s/p AICD, most recent ECHO 06/27/19 with EF 55%, normal diastolic for age, trivial TBI, PASP 65 to 70 mmHg with severe pulmonary hypertension, continue aspirin, metoprolol, holding Lasix, spironolactone and lisinopril given acute kidney injury, resume once clinically appropriate. Judiciously hydrating given history, but may need to increase given renal function. 4. CAD: Status post CABG times 10/2000 per patient report, continue aspirin, statin, metoprolol, holding lisinopril, resume once acute kidney injury resolved. 5. Diabetes mellitus type II: Hold oral home regimen, ADA diet, accu checks w/ ISS. 6. Hypertension: Continue home regimen including isosorbide, metoprolol, holding lisinopril, Lasix and spironolactone given acute kidney injury, resume once appropriate. 7. Hyperlipidemia: Continue home statin regimen. 8. Chronic normocytic anemia: Admission hemoglobin 10.5, previously 11-12, unclear specific chronicity as earlier labs in 2020 and in 2019 normal levels. 9. CODE status: Patient does not have LW or HCPOA set up. Discussed CODE status at length including difference between FULL code, DNR-CCA and DNR-CC status. Following discussions about the differences in these status, requested DNR-CCA, no intubation. Noted if he was interested CM/SW could assist in giving him information in setting these items up for future. Advanced Care Planning Face to Face Time: 16 minutes. Inpatient E&M: 63487 Init Hosp L3 Procedures: 01731 Advncd Care Plan 30 Min
[2020-02-01 13:20] LABS: Bacteria 0 SEEN /hpf (None Seen); Mucous, Urine 0 SEEN /hpf (<or=2+); Red Blood Cells-Urine 0 SEEN /hpf (0-5); Squamous Epithelial Cells - UA 0 SEEN /hpf (0-5); White Blood Cells 0 SEEN /hpf (0-5)
[2020-02-01 13:26] LABS: Glucose, Dipstick Normal (Normal); Ketone-Dipstick Negative (Negative); Leukocyte Esterase-Dipstick Negative /ul (Negative); Nitrite-Dipstick Negative (Negative); Occult Blood-Urine Negative /ul (Negative); Protein-Dipstick Negative (Negative); Specific Gravity, Urine 1.005 (1.002-1.030); Urine Bilirubin Dipstick Negative (Negative); Urine Clarity Clear (Clear); Urine Urobilinogen Normal (Normal); Urine pH 6.5 (5.0 - 8.0)
--- NOTE | 2020-02-01 13:28 | NURSING ---
MED SURG WHITE QAMAR, URINARY RETENTION
[2020-02-01 13:29] LABS: Color, Urine SEE COMMENT BELOW (Yellow)
--- NOTE | 2020-02-01 14:55 | CT_ITS ---
STUDY: CT ABDOMEN AND PELVIS WITHOUT CONTRAST REASON FOR EXAM: Male, 64 years old. Abdomen pain, edema bilateral lower extremities, acute kidney injury d/t urinary retention, hx hypertension. RADIATION DOSAGE (If Supplied By Facility): CTDIvol = ( 20.36 ) mGy, DLP = ( 1088.67 ) mGycm TECHNIQUE: Transaxial images were obtained from the dome of the diaphragm to the symphysis pubis without oral contrast, and without intravenous contrast. Sagittal and coronal images were reconstructed. Individualized dose optimization techniques were used for this CT. COMPARISON: None. FINDINGS: There is atelectasis and small effusion of the left lung base. Cardiac conduction device partially visualized. The heart is mildly enlarged. Normal liver. There is a solitary gallstone. Normal spleen. Normal pancreas. Normal bilateral adrenal glands. No hydronephrosis. There are calcifications of the bilateral kidneys measuring up to 14 mm on the left side. No ureteral calculi. Proteinaceous cyst of the inferior right kidney measures 1 cm. Benign, incidental finding; no specific imaging workup recommended according to current ACR guidelines. Normal visualized stomach. Normal small intestine. There are multiple colonic diverticula consistent with diverticulosis. There is non-visualization of the appendix. There is diffuse atherosclerotic calcification of the abdominal aorta, without a demonstrated aneurysm. Normal inferior vena cava. Normal retroperitoneum. CHOUDHURY catheter decompresses urinary bladder. Diffuse body wall edema. There is moderate volume ascites throughout the abdomen. There are diffuse degenerative changes of the visualized lumbar spine. CT/Abdomen/Pelvis without Cont IMPRESSION: 1. Moderate volume ascites. Body wall edema. Left pleural effusion. 2. Nonobstructing bilateral nephrolithiasis. No hydronephrosis. Electronically Signed: Ziyad Calvo MD ([place]) at 15:26 EDT , Service support ,
[2020-02-01 15:16] LABS: Bacteria 0 SEEN /hpf (None Seen); Mucous, Urine 0 SEEN /hpf (<or=2+)
--- NOTE | 2020-02-01 15:24 | CON.PCM_ITS ---
Reason for Consult Date of Consultation: 02/01/20 Reason for Consultation: Unable to place gann History of Present Illness: The patient is a 64 year old Male with significant co morbitities presents to ER and has to urinated for 3-4 days. poor historian nurse did place 2 gann with only small return of urine, then was asked to place a larger gann this larger gann then caused bleeding, used a bard kit and over a wire could place a gann appears to be inthe bladder but no urine? Past Medical History Past Medical History (Chronic Problems): Chronic Problems (Last Reviewed 12/29/19 @ 12:18 by Maureen Dove) Morbid obesity with BMI of 40.0-44.9, adult (Chronic) Bilateral lower extremity edema (Chronic) PVD (peripheral vascular disease) (Chronic) Lymphedema (Chronic) Excoriation of left lower leg (Chronic) CAD (coronary artery disease) (Chronic) Chronic kidney disease (CKD) (Chronic) Type 2 diabetes mellitus (Chronic) Essential hypertension (Chronic) Pure hypercholesterolemia (Chronic) Atherosclerosis of coronary artery bypass graft without angina pectoris (Chronic) CABG x6 ; Internal Mammary to Anterior Descending, SVG to diag branch of the Anterior descending,SVG to the lateral & posteriorlateral CX, SVG to Po sterior Descending and continuation branches of the RCA 02/27/03 Chronic systolic congestive heart failure (Chronic) Ischemic cardiomyopathy (Chronic) Pulmonary hypertension (Chronic) Presence of cardiac defibrillator (Chronic ~08/2004) Old myocardial infarction (Chronic) Medical History: Medical History (Last Reviewed 02/01/20 @ 15:[address] Ciro Loyola MD) Essential hypertension (Chronic) I10 Pure hypercholesterolemia (Chronic) E78.00 Atherosclerosis of coronary artery bypass graft without angina pectoris (Chronic) I25.810 CABG x6 ; Internal Mammary to Anterior Descending, SVG to diag branch of the Anterior descending,SVG to the lateral & posteriorlateral CX, SVG to Posterior Descending and continuation branches of the RCA 02/27/03 Chronic systolic congestive heart failure (Chronic) I50.22 Ischemic cardiomyopathy (Chronic) I25.5 Pulmonary hypertension (Chronic) I27.20 Presence of cardiac defibrillator (Chronic) Onset Date: ~08/2004 Z95.810 Tachycardia (Acute) R00.0 Long-term use of high-risk medication (Inactive) Z79.899 Old myocardial infarction (Chronic) I25.2 Angina decubitus I20.8 Edema R60.9 Family history of hypertension Z82.49 Fatty liver K76.0 Type 2 diabetes mellitus E11.9 Abnormal stress test (Inactive) R94.39 Allergies No Known Allergies Allergy (Verified 02/01/20 11:51) Home Medications: Ambulatory Orders Medication Instructions Recorded Aspirin [Aspirin, Baby] 81 mg PO DAILY@0800 03/10/14 colchicine 0.6 mg capsule 0.6 mg PO DAILY cap 05/22/17 metoprolol tartrate 100 mg tablet 100 mg PO BID #180 tab 03/14/19 Magnesium Oxide [Mag-Ox 400] 400 mg PO BID 06/03/19 Allopurinol [Zyloprim] 300 mg PO DAILY 06/26/19 Amiodarone HCl 100 mg PO DAILY 06/26/19 Isosorbide Mononitrate [Isosorbide 30 mg PO QAM 06/26/19 Mononitrate ER] Lisinopril 20 mg PO BID 06/26/19 Simvastatin 20 mg PO QHS 06/26/19 predniSONE tablet 2 tab PO DAILY@0800 #8 tab 06/29/19 Metformin HCl 1,000 mg PO BID 11/27/19 Spironolactone 50 mg DAILY 11/27/19 albuterol sulfate 90 mcg/actuation 2 puff INHALATION Q4H PRN #18 g 12/04/19 aerosol inhaler Pulse Oximeter #1 ea 12/29/19 furosemide 40 mg tablet 80 mg PO BID tab 12/29/19 amoxicillin 875 mg-potassium 1 tab PO BID #20 tab 01/19/20 clavulanate 125 mg tablet Surgical History: Surgical History (Last Reviewed 12/29/19 @ 12:18 by Maureen Dove) Aortocoronary bypass status (Resolved) Onset Date: ~02/22/03 Z95.1 CABG x6 ; Internal Mammary to Anterior Descending, SVG to diag branch of the Anterior descending,SVG to the lateral & posteriorlateral CX, SVG to Posterior Descending and continuation branches of the RCA 02/27/03 Surgical History: coronary bypass surgery, - - AICD Smoking Status: Former smoker - *Family History Maternal Family History: Family History (Last Reviewed 12/29/19 @ 12:18 by Maureen Dove) Mother Hypertension Sister Hypertension History Items: No pertinent history Review of Systems Constitutional: Denies: Chills, Fever, Weight Change HEENT: Denies: Head Aches, Sinus Congestion, Sinus Drainage Cardiovascular: Denies: Chest Pain, Palpitations Respiratory: Denies: Cough, Shortness of breath at rest, Sputum production Gastrointestinal: Denies: Abdominal Pain, Nausea, Vomiting Genitourinary: Denies: Dysuria Musculoskeletal: Denies: Joint Pain, Joint Tenderness Skin: Denies: Rash, Wounds Neurological: Denies: Numbness, Tingling, Focal weakness Psychiatric: Denies: Anxiety, Depression, Homicidal Ideations, Suicidal Ideations Hematologic/ Lymphatic: Denies: Easy Bruising, Easy Bleeding Physical Exam - Physical Exam Vital Signs Temp 98 F 02/01/20 14:45 Pulse 61 02/01/20 14:45 Resp 20 H 02/01/20 14:45 BP 126/67 H 02/01/20 14:45 Pulse Ox 99 02/01/20 14:45 Intake & Output 01/30/20 01/31/20 02/01/20 23:59 23:59 23:59 Output Total 0 / 0 Balance 0 / 0 Weight: 115.5 kg Output: Urine 0 / 0 General: Alert HEENT: Atraumatic Oral: Moist Mucosa Neck: Supple Lungs: Normal air movement Cardiovascular: Regular rate Abdomen: Soft, Obese Rectal: Exam deferred Laboratory Tests Past 24 Hrs 02/01/20 02/01/20 02/01/20 12:20 12:20 12:20 WBC 6.3 RBC 3.91 L Hgb 10.5 L Hct 35.6 L MCV 91.0 MCH 26.9 L MCHC 29.5 L RDW Std Deviation 55.9 H RDW Coeff of Aubrey 16.8 H Plt Count 215 MPV 11.0 Immature Gran % (Auto) 0.300 Neut % (Auto) 61.8 Lymph % (Auto) 21.3 Riley % (Auto) 8.5 Eos % (Auto) 7.6 H Baso % (Auto) 0.5 Absolute Neuts (auto) 3.9 Absolute Lymphs (auto) 1.35 Nucleated RBC % 0 Sodium 139 Potassium 5.0 Chloride 107 Carbon Dioxide 27.0 Anion Gap 5 BUN 61 H Creatinine 4.66 H Estim Creat Clear Calc 13.59 Est GFR (MDRD) Af Amer 16 L Est GFR (MDRD) Non-Af 14 L BUN/Creatinine Ratio 13.1 Glucose 153 H Calcium 8.2 L Troponin I < 0.015 B-Natriuretic Peptide 848.6 H Urine Color Urine Clarity Urine pH Ur Specific [place] Urine Protein Urine Glucose (UA) Urine Ketones Urine Occult Blood Urine Nitrite Urine Bilirubin Urine Urobilinogen Ur Leukocyte Esterase Urine RBC Urine WBC Ur Squamous Epith Cells Urine Bacteria Urine Mucus 02/01/20 02/01/20 13:15 15:05 WBC RBC Hgb Hct MCV MCH MCHC RDW Std Deviation RDW Coeff of Aubrey Plt Count MPV Immature Gran % (Auto) Neut % (Auto) Lymph % (Auto) Riley % (Auto) Eos % (Auto) Baso % (Auto) Absolute Neuts (auto) Absolute Lymphs (auto) Nucleated RBC % Sodium Potassium Chloride Carbon Dioxide Anion Gap BUN Creatinine Estim Creat Clear Calc Est GFR (MDRD) Af Amer Est GFR (MDRD) Non-Af BUN/Creatinine Ratio Glucose Calcium Troponin I B-Natriuretic Peptide Urine Color SEE COMMENT BELOW Pending Urine Clarity Clear Pending Urine pH 6.5 Pending Ur Specific [place] 1.005 Pending Urine Protein Negative Pending Urine Glucose (UA) Normal Pending Urine Ketones Negative Pending Urine Occult Blood Negative Pending Urine Nitrite Negative Pending Urine Bilirubin Negative Pending Urine Urobilinogen Normal Pending Ur Leukocyte Esterase Negative Pending Urine RBC 0 SEEN Pending Urine WBC 0 SEEN Pending Ur Squamous Epith Cells 0 SEEN Pending Urine Bacteria 0 SEEN Pending Urine Mucus 0 SEEN Pending Assessment/Plan All Active Problems (Last Reviewed 12/29/19 @ 12:18 by Maureen Dove) Hypoxemia (Acute) Influenza A (Acute) Venous stasis ulcer of right lower extremity (Acute) Venous stasis ulcer of left lower extremity (Acute) Aortocoronary bypass status (Resolved ~02/22/03) Tachycardia (Acute) placed gann no urine in the bladder would recommend we do a CT scan to make sure/ confirm gann in bladder and evaluate the cause of anuric state could be pre renal or renal? call with questions.
[2020-02-01 15:25] LABS: Color, Urine Red (Yellow); Glucose, Dipstick Normal (Normal); Ketone-Dipstick Negative (Negative); Leukocyte Esterase-Dipstick 25 /ul (Negative); Nitrite-Dipstick Negative (Negative); Occult Blood-Urine 250 /ul (Negative); Protein-Dipstick 100 mg/dl (Negative); Specific Gravity, Urine 1.005 (1.002-1.030); Urine Bilirubin Dipstick Negative (Negative); Urine Clarity Cloudy (Clear); Urine Urobilinogen Normal (Normal); Urine pH 6.5 (5.0 - 8.0)
--- NOTE | 2020-02-01 15:28 | ED.RN ---
DR FABIAN AND DR LEON AWARE OF MULTIPLE ATTEMPTS AT CHOUDHURY CATHETER WITH MINIMAL RETURN. SECOND CHOUDHURY THIS RN ATTEMPTED TO IRRIGATE. MUCH RESISTANCE ENCOUNTERED.THIS RN TALKED WITH DR FABIAN. [address] IRRIGATION CHOUDHURY TO BE BE PLACED. UNABLE TO. DR COWAN CONTACTED. AT BEDSIDE WITH GUIDE WIRE. CHOUDHURY PLACED. MINIMAL RETURN. CT SCAN PER DR KESSLER.PT TOLERATED WELL
[2020-02-01 15:36] LABS: Red Blood Cells-Urine > 100 SEEN /hpf (0-5); Squamous Epithelial Cells - UA 0-5 SEEN /hpf (0-5); White Blood Cells 0-5 SEEN /hpf (0-5)
--- NOTE | 2020-02-01 16:50 | ECHOD_ITS ---
Reason For Study: DYSPNEA/SOB Procedure This was a 2D Doppler, Color Flow transthoracic echocardiogram. The study was technically difficult. Exam performed portable in patient room. Left Ventricle Normal LV size. The estimated ejection fraction is 55 %. Left ventricular systolic function is normal. Stage 1 diastolic dysfunction. No regional wall motion abnormalities noted. Right Ventricle Normal RV size. Normal systolic function. Atria The left atrium is mildly enlarged. The right atrium is mildly enlarged. Mitral Valve Normal mitral valve. Tricuspid Valve Normal tricuspid valve. Moderate (2+) tricuspid valve insufficiency. Pulmonary artery systolic pressure is 55 mmHg. Moderate pulmonary hypertension. Aortic Valve Trisinus/trileaflet aortic valve. Pulmonic Valve Normal pulmonic valve. Great Vessels Normal aortic root. The pulmonary artery is normal size. The inferior vena cava is dilated. Pericardium/Pleural No pericardial effusion. Medication Definity deferred due to increased PAP. MMode/2D Measurements & Calculations LVIDd: 5.4 cm IVSd: 1.00 cm Ao root diam: 3.4 cm LVIDs: 3.7 cm LVPWd: 0.93 cm RVDd: 5.7 cm FS: 32.6 % LAV(MOD-bp): 57.3 ml LA A4 area: 21.4 cm2 LA dimension(2D): 4.3 cm LAV(MOD-bp) Indexed: 26.6 ml/m2 LAV(MOD-sp2): 65.6 ml LAV(MOD-sp4): 54.4 ml RA A4 area: 21.2 cm2 Time Measurements MV dec time: 0.27 sec Doppler Measurements & Calculations MV E max vega: 76.3 cm/sec Lat Peak E' Vega: 9.5 cm/sec Med Peak E' Vega: 6.7 cm/sec MV A max vega: 90.1 cm/sec E/E' lat: 8.0 E/E' med: 11.4 MV E/A: 0.85 Ao V2 max: 163.5 cm/sec LV V1 max: 117.9 cm/sec PA V2 max: 109.1 cm/sec Ao max P.7 mmHg LV V1 max P.6 mmHg PI end-d vega: 112.6 cm/sec TR max vega: 356.6 cm/sec TR max P.9 mmHg Interpretation Summary Normal LV size. The estimated ejection fraction is 55 %. Left ventricular systolic function is normal. Stage 1 diastolic dysfunction. Pulmonary artery systolic pressure is 55 mmHg. Moderate pulmonary hypertension. Compared to the previous the pulmonary pressures are lower Ordering Physician: Nadine Keen Referring Physician: LEXII DOSHI Performed By: Liliana Moss RDCS
[2020-02-01] MEDS: Heparin Injection (Vial) 5,000 UNIT/ML VIAL 5000 UNIT SC ×2 (18:05→22:33)
[2020-02-01] MEDS: 0.9% Saline Lock 10 ML Syringe IV (18:05)
[2020-02-01] MEDS: Furosemide 500 MG in Empty Viaflex 50 mL 1 EACH CONT INF (18:06)
[2020-02-01 18:11] LABS: T4 Free Direct 1.27 ng/dL (0.76-1.46); Thyroid Stim Hormone (TSH) 1.45 uIU/mL (0.358-3.74)
[2020-02-01 18:12] LABS: AST(SGOT) 18 U/L (15-37); Alanine Aminotransfer ALT/SGPT 14 U/L (16-61); Albumin, Serum 3.1 g/dL (3.2-5.0); Alkaline Phosphatase 65 U/L (45-117); Globulin 3.4 g/dL (2.2-4.2); Magnesium 1.9 mg/dL (1.6-2.6); Protein, Total 6.5 g/dL (6.4-8.2)
[2020-02-01 18:31] LABS: Bedside Glucose 87 mg/dL (70-110)
[2020-02-01] MEDS: oxyCODONE 5 MG Tablet PO (20:53)
[2020-02-01 21:11] LABS: International Normalized Ratio 1.3; Prothrombin Time (Protime)PT. 15.2 SECONDS (11.7-14.9)
[2020-02-01 21:12] LABS: Partial Thromboplast Time 39.1 Seconds (24.1-36.2)
--- NOTE | 2020-02-01 21:46 | PCM.CONS.C ---
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 In the emergency room patient was found to have acute on chronic renal failure. At the moment patient has had stage IV. 2 months ago patient had creatinine of 1.67 now is 4.6. Lee catheter was inse And found to have very little urine. CT scan of the abdomen showed large amount of ascites. Patient's cardiac history dates back to 2002 at that time patient had myocardial infarct followed by 6 grafts bypass with FLORES graft to the left anterior descending saphenous venous grafts to the diagonal branch, obtuse marginal branches, and distal right coronary artery. 7 months ago patient had echocardiogram done and showed ejection fraction of 55%. Right heart systolic function was normal. 10 years ago for reasons unclear, patient had ICD implanted. The ICD has never discharged since implant. 3 years ago patient had battery change. Patient has been taking amiodarone 100 mg daily. The ICD must have been put in for malignant arrhythmia purpose. He has never been able to lay flat to sleep for the last 10 years. His abdomen has been increasing in curve size for the last couple months. He quit smoking and drinking in 2002. He is known to have hypertension, diabetes and hyperlipidemia. He is known to have bilateral venous ulcers of the lower legs. In the good day patient cannot walk more than 2 blocks without getting shortness of breath especially recently] Past Medical History Allergies/Adverse Reactions: Allergies No Known Allergies Allergy (Verified 02/01/20 11:51) Home Medications: Ambulatory Orders Medication Instructions Recorded Aspirin [Aspirin, Baby] 81 mg PO DAILY@0800 03/10/14 colchicine 0.6 mg capsule 0.6 mg PO DAILY cap 05/22/17 Magnesium Oxide [Mag-Ox 400] 400 mg PO BID 06/03/19 Allopurinol [Zyloprim] 300 mg PO DAILY 06/26/19 Amiodarone HCl 100 mg PO DAILY 06/26/19 Isosorbide Mononitrate [Isosorbide 30 mg PO QAM 06/26/19 Mononitrate ER] Lisinopril 20 mg PO BID 06/26/19 Simvastatin 20 mg PO QHS 06/26/19 Metformin HCl 1,000 mg PO BID 11/27/19 albuterol sulfate 90 mcg/actuation 2 puff INHALATION Q4H PRN #18 g 12/04/19 aerosol inhaler Pulse Oximeter #1 ea 12/29/19 furosemide 40 mg tablet 40 mg PO BID tab 12/29/19 Amox/Clavulanate Tablet [Augmentin 1 tab PO BID 02/01/20 Tablet] Metoprolol Tartrate [Lopressor 100 mg PO BID 02/01/20 (beta carlin)] Nabumetone 500 mg PO DAILY 02/01/20 Past Medical History (Chronic Problems): Chronic Problems (Last Reviewed 02/01/20 @ 15:[address] 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) Essential hypertension (Chronic) Pure hypercholesterolemia (Chronic) Atherosclerosis of coronary artery bypass graft without angina pectoris (Chronic) CABG x6 ; Internal Mammary to Anterior Descending, SVG to diag branch of the Anterior descending,SVG to the lateral & posteriorlateral CX, SVG to Posterior Descending and continuation branches of the RCA 02/27/03 Chronic systolic congestive heart failure (Chronic) Ischemic cardiomyopathy (Chronic) Pulmonary hypertension (Chronic) Presence of cardiac defibrillator (Chronic ~08/2004) Old myocardial infarction (Chronic) Surgical History: coronary bypass surgery, - - AICD placement in addition to CABG x6. Psychiatric History: No pertinent psych hx - *Family History Paternal Family History: Family History (Last Reviewed 12/29/19 @ 12:18 by Maureen Dove) Mother Hypertension Sister Hypertension History Items: Hypertension Sibling Family History: Family History (Last Reviewed 12/29/19 @ 12:18 by Maureen Dove) Mother Hypertension Sister Hypertension History Items: Hypertension Maternal Family History: Family History (Last Reviewed 12/29/19 @ 12:18 by Maureen Dove) Mother Hypertension Sister Hypertension History Items: Hypertension Lives: With Family - Patient notes currently he lives with his mother as well as a sister and her . Smoking Status: Former smoker Tobacco Use: Non-smoker Alcohol: Occasional Drugs: None Review of Systems - Review of Systems General: Reports: Fatigue, Weakness Cardiovascular: Reports: Shortness of Breath with Exertion, Orthopnea. Denies: Chest Discomfort Respiratory: Reports: Shortness of Breath Gastrointestinal: Denies: Hematemesis, Hematochezia, Melena Genitourinary: Reports: - - Oliguria for last 4 days Neurological: Reports: Weakness. Denies: Dizziness Objective: Vital Signs Temp Pulse Resp BP Pulse Ox 97.5 F L 61 20 H 116/49 L 100 02/01/20 17:00 02/01/20 17:34 02/01/20 17:00 02/01/20 17:00 02/01/20 17:00 Oxygen Flow Rate (L/min) 2 Oxygen Delivery Method Nasal Cannula Weight: 251 lb 1.6 oz Body Mass Index (BMI) 47.4 Intake and Output for Last 24 Hours 01/30/20 01/31/20 02/01/20 23:59 23:59 23:59 Output Total 0 / 0 Balance 0 / 0 General: Alert, Oriented x 3, Cooperative, No Acute Distress, - - Poor historian because of language barrier Neck: Supple, - - Elevated neck vein Lungs: Clear to auscultation Cardiovascular: Regular Rhythm, No Murmurs - Heart sounds distant Abdomen: Non Tender, No Organomegaly, Distended, - - Ascites present Extremities: Bilaterel Edema +4 Skin: Ulcers Neurological: No Focal Motor or Sensory Deficit Psych/Mental Status: Appropriate, Normal Affect 02/01/20 12:20: WBC 6.3, RBC 3.91 L, Hgb 10.5 L, Hct 35.6 L, MCV 91.0, MCH 26.9 L, MCHC 29.5 L, Plt Count 215, MPV 11.0, Immature Gran % (Auto) 0.300, Neut % (Auto) 61.8, Lymph % (Auto) 21.3, [place] % (Auto) 8.5, Eos % (Auto) 7.6 H, Baso % (Auto) 0.5, Absolute Neuts (auto) 3.9, Nucleated RBC % 0 02/01/20 12:20: Sodium 139, Potassium 5.0, Chloride 107, Carbon Dioxide 27.0, Anion Gap 5, BUN 61 H, Creatinine 4.66 H, Est GFR (MDRD) Af Amer 16 L, Est GFR (MDRD) Non-Af 14 L, BUN/Creatinine Ratio 13.1, Glucose 153 H, Calcium 8.2 L, Troponin I < 0.015 02/01/20 12:20: B-Natriuretic Peptide 848.6 H 02/01/20 12:20: Magnesium 1.9, Total Bilirubin 0.40, Direct Bilirubin 0.20 02/01/20 13:15: Urine Color SEE COMMENT BELOW, Urine Clarity Clear, Urine pH 6.5, Ur Specific [place] 1.005, Urine Protein Negative, Urine Glucose (UA) Normal, Urine Ketones Negative, Urine Occult Blood Negative, Urine Nitrite Negative, Urine Bilirubin Negative, Urine Urobilinogen Normal, Ur Leukocyte Esterase Negative, Urine RBC 0 SEEN, Urine WBC 0 SEEN 02/01/20 15:05: Urine Color Red, Urine Clarity Cloudy, Urine pH 6.5, Ur Specific [place] 1.005, Urine Protein 100 H, Urine Glucose (UA) Normal, Urine Ketones Negative, Urine Occult Blood 250 H, Urine Nitrite Negative, Urine Bilirubin Negative, Urine Urobilinogen Normal, Ur Leukocyte Esterase 25 H, Urine RBC > 100 SEEN, Urine WBC 0-5 SEEN 02/01/20 17:41: Troponin I < 0.015 02/01/20 20:40: PT 15.2 H, INR 1.3, APTT 39.1 H 02/01/20 20:40: Troponin I < 0.015 Rhythm: EKG: ECHO: Stress Test: Cardiac Cath: PCI: CT Surgery: Holter monitor: EPS: PPM: CXR: Chest CT Scan: Assessment/Plan #1 massive ascites with marked swelling the lower extremities, at this point from cardiac standpoint, we have to rule out right heart failure or biventricular failure. The other possibilities from cardiac point of view are constrictive pericarditis, pulmonary hypertension, tricuspid insufficiency from pacing lead distortions of the tricuspid apparatus. Patient had echocardiogram done 7 months ago apart from pulmonary hypertension of severe degree, did not show any of the above possibility. We will however repeat the echocardiogram. I agree with gentle diuresis. Nephrology consult would be worthwhile. #2 myocardial infarct 2002 followed by 6 grafts bypass. No recurrence of chest pain #3 ICD implant 10 years ago presumably for arrhythmic purpose. Patient has been taking amiodarone 100 mg daily #4 history of hypertension, diabetes and hyperlipidemia
[2020-02-01] MEDS: Glucerna Shake 120 ML LIQUID PO (22:24)
[2020-02-01 22:30] LABS: Bedside Glucose 96 mg/dL (70-110)
[2020-02-01] MEDS: Metoprolol Tartrate 100 MG Tablet PO (22:33)
[2020-02-01] MEDS: Atorvastatin Calcium 10 MG Tablet PO (22:34)
[2020-02-02] VITALS (14 sets, daily range): BP systolic 78–106; BP diastolic 37–55; PULSE 56–64; RESP 16–18; TEMP 36.3–36.8; O2SAT 95–99
[2020-02-02] MEDS: Morphine 2 MG/ML Syringe IV (00:54)
[2020-02-02] MEDS: MELATONIN 3 MG TABLET PO ×2 (00:54→23:05)
[2020-02-02] MEDS: oxyCODONE 5 MG Tablet PO ×3 (02:05→23:05)
--- NOTE | 2020-02-02 02:06 | NURSING ---
pt c/o his penis/cath site burning and hurting, cath site cleaned and repositioned w new cath secure placed. prn pain meds given. penis edematous
[2020-02-02 05:39] LABS: Absolute Lymphocyte Count 0.97 X10^3/uL (0.83-4.51); Absolute Neutrophil Count 6.2 X10^3/uL (2.0-7.7); Basophil# 0.04 X10^3/uL; Basophil% 0.5 % (0-1); Eosinophils% 3.6 % (0-5); Hemoglobin 10.8 g/dL (13.0-16.5); Lymphocyte # 0.97 X10^3/ul (4.0); Lymphocyte % 11.6 % (19-41); Mean Corp Hgb Conc 28.4 g/dL (32-36); Mean Corpuscular Hgb 27.3 pg (27.0-32.0); Mean Corpuscular Volume 96.2 fL (80-94); Mean Platelet Vol. 11.5 fl (6.2-12.0); Monocyte# 0.76 X10^3/uL; Monocyte% 9.1 % (0-10); NRBC Flagged by Analyzer 0 % (0-5); Neutrophil # 6.24 X10^3/uL (2.7-7.7); Neutrophil % 74.8 % (47-70); Platelet Count 208 K/mm3 (150-450); RBC Distribution Width CV 16.8 % (11.6-14.6); RBC Distribution Width SD 58.8 fl (35.1-43.9); Red Blood Count 3.95 M/mm3 (4.6-6.2); White Blood Count 8.3 K/mm3 (4.4-11.0)
--- NOTE | 2020-02-02 05:39 | NURSING ---
hospitalist notified of the pts low bp, 78/44, ordered to hold the lasix drip and have dayshift dr address restarting it.
[2020-02-02] MEDS: Heparin Injection (Vial) 5,000 UNIT/ML VIAL 5000 UNIT SC ×3 (05:54→21:30)
--- NOTE | 2020-02-02 05:55 | EKG12_ITS ---
Test Reason : AM EKG Blood Pressure : / mmHG Vent. Rate : 062 BPM Atrial Rate : 062 BPM P-R Int : 228 ms QRS Dur : 108 ms QT Int : 422 ms P-R-T Axes : 039 -04 260 degrees QTc Int : 428 ms Sinus rhythm with 1st degree A-V block Incomplete left bundle branch block T wave abnormality, consider inferior ischemia Abnormal ECG When compared with ECG of 01-FEB-2020 12:29, MANUAL COMPARISON REQUIRED, DATA IS UNCONFIRMED Confirmed by JACKIE NAYAK, MELLISSA ([id number]), industrial editor JAY GE ([id number]) on 02/03/2020 12:39:47 PM Referred By: DR FABIAN Confirmed By:MELLISSA MEJIA MD
[2020-02-02 05:58] LABS: ALB/GLOB Ratio 0.9 RATIO (0.9-2.4); AST(SGOT) 17 U/L (15-37); Alanine Aminotransfer ALT/SGPT 12 U/L (16-61); Alkaline Phosphatase 66 U/L (45-117); Anion Gap 6 (5-15); BUN 65 mg/dL (7-18); Calcium,Total 8.5 mg/dL (8.5-10.1); Chloride 108 mmol/L (98-107); Cholesterol 80 mg/dL (200); Creatinine, Serum 4.63 mg/dL (0.70-1.30); EST Glomerular Filtration Rate 14 mL/min (>60); Est Glom Filt Rate - Afr Amer 17 mL/min (>60); Estimated Creatinine Clearance 12.08 ml/min; Globulin 3.3 g/dL (2.2-4.2); Glucose 106 mg/dL (74-106); High Density Lipoprotein 25 mg/dL; Potassium 5.4 mmol/L (3.5-5.1); Protein, Total 6.3 g/dL (6.4-8.2); Sodium Level 137 mmol/L (136-145); Triglycerides 152 mg/dL; Very Low Density Lipoprotein 30 mg/dL (5-40)
[2020-02-02] MEDS: Ondansetron 4 MG/2 ML Vial IV (07:00)
--- NOTE | 2020-02-02 07:01 | NURSING ---
pt given a juice this am per his request, about 10 mins later the pt is dry heaving. prn zofran given.
--- NOTE | 2020-02-02 07:08 | NURSING ---
dr morfin in to see the pt and wanted him back on the lasix drip.
[2020-02-02 07:25] LABS: Bedside Glucose 128 mg/dL (70-110)
[2020-02-02 09:50] LABS: Bedside Glucose 150 mg/dL (70-110)
[2020-02-02] MEDS: Amiodarone 200 MG Tablet 100 MG PO (10:14)
[2020-02-02] MEDS: Allopurinol 300 MG Tablet PO (10:15)
[2020-02-02] MEDS: Aspirin 81 MG TAB.CHEW PO (10:15)
--- NOTE | 2020-02-02 11:53 | NURSING ---
skin photo: right lower leg
--- NOTE | 2020-02-02 11:54 | NURSING ---
wound photo: left lower leg
[2020-02-02] MEDS: Insulin Lispro 100 UNIT/ML INSULN.PEN SC (11:59)
[2020-02-02 12:06] LABS: Bedside Glucose 170 mg/dL (70-110)
--- NOTE | 2020-02-02 12:29 | PCM.PROGNOTE ---
<HuseyinMaureen DIGITAL RESEARCH ANALYST - Last Filed: 02/02/20 13:20> Patient Problems: Active and Suspected Problems (Last Reviewed 02/01/20 @ 15:[address] Ciro Loyola MD) QAMAR (acute kidney injury) (Acute) Urinary retention (Acute) Subjective: Patient seen and examined. Denies shortness of breath. States his abdominal and lower extremity swelling began to develop 2 weeks ago along with difficulty urinating. Patient reports 20-minute episode of left-sided chest discomfort overnight which resolved on its own. Denies other current symptoms or complaints. - Physical Exam Vitals/I&O's: Vital Signs Temp Pulse Resp BP Pulse Ox 98.1 F 57 L 16 95/37 L 97 02/02/20 10:06 02/02/20 10:17 02/02/20 10:06 02/02/20 10:06 02/02/20 10:06 Oxygen Flow Rate (L/min) 2 Oxygen Delivery Method Nasal Cannula Weight: 251 lb 1.6 oz Body Mass Index (BMI) 47.4 Intake and Output for Last 24 Hours 01/31/20 02/01/20 02/02/20 23:59 23:59 23:59 Intake Total 331.58 / 331.58 Output Total 0 / 150 400 / 400 Balance 0 / 50 -68.42 / -68.42 General: Alert, Oriented x3, Cooperative HEENT: Atraumatic, PERRLA, EOMI, Normocephalic Oral: Moist Mucosa Neck: Supple, No JVD, Negative Carotid Bruits Lungs: Clear to auscultation, Diminished Cardiovascular: Regular rate, No murmurs Abdomen: Bowel Sounds Present, Soft, Non Tender, Non-Distended, Distended, - - Ascites Extremities: No clubbing, No cyanosis, Edema - +3 BLLE Skin: No rashes, No breakdown Musculoskeletal: No Tenderness to Palpation of Joints or Extremities Neurological: Cranial nerves II-XII grossly intact, Neuro grossly intact Psych/Mental Status: Normal Affect, Appropriate Laboratory Results 02/01/20 12:20: Sodium 139, Potassium 5.0, Chloride 107, Carbon Dioxide 27.0, Anion Gap 5, BUN 61 H, Creatinine 4.66 H, Estim Creat Clear Calc 13.59, Est GFR (MDRD) Af Amer 16 L, Est GFR (MDRD) Non-Af 14 L, BUN/Creatinine Ratio 13.1, Glucose 153 H, Calcium 8.2 L, Troponin I < 0.015 02/01/20 12:20: B-Natriuretic Peptide 848.6 H 02/01/20 12:20: TSH 1.45, Free T4 1.27 02/01/20 12:20: Magnesium 1.9, Total Bilirubin 0.40, Direct Bilirubin 0.20, AST 18, ALT 14 L, Alkaline Phosphatase 65, Total Protein 6.5, Albumin 3.1 L, Globulin 3.4 02/01/20 13:15: Urine Color SEE COMMENT BELOW, Urine Clarity Clear, Urine pH 6.5, Ur Specific [place] 1.005, Urine Protein Negative, Urine Glucose (UA) Normal, Urine Ketones Negative, Urine Occult Blood Negative, Urine Nitrite Negative, Urine Bilirubin Negative, Urine Urobilinogen Normal, Ur Leukocyte Esterase Negative, Urine RBC 0 SEEN, Urine WBC 0 SEEN, Ur Squamous Epith Cells 0 SEEN, Urine Bacteria 0 SEEN, Urine Mucus 0 SEEN 02/01/20 15:05: Urine Color Red, Urine Clarity Cloudy, Urine pH 6.5, Ur Specific [place] 1.005, Urine Protein 100 H, Urine Glucose (UA) Normal, Urine Ketones Negative, Urine Occult Blood 250 H, Urine Nitrite Negative, Urine Bilirubin Negative, Urine Urobilinogen Normal, Ur Leukocyte Esterase 25 H, Urine RBC > 100 SEEN, Urine WBC 0-5 SEEN, Ur Squamous Epith Cells 0-5 SEEN, Urine Bacteria 0 SEEN, Urine Mucus 0 SEEN 02/01/20 17:41: Troponin I < 0.015 02/01/20 17:43: POC Glucose 87 02/01/20 20:40: PT 15.2 H, INR 1.3, APTT 39.1 H 02/01/20 20:40: Troponin I < 0.015 02/01/20 22:28: POC Glucose 96 02/02/20 05:18: WBC 8.3, RBC 3.95 L, Hgb 10.8 L, Hct 38.0 L, MCV 96.2 H D, MCH 27.3, MCHC 28.4 L, RDW Std Deviation 58.8 H, RDW Coeff of Aubrey 16.8 H, Plt Count 208, MPV 11.5, Immature Gran % (Auto) 0.400, Neut % (Auto) 74.8 H, Lymph % (Auto) 11.6 L, Peach % (Auto) 9.1, Eos % (Auto) 3.6, Baso % (Auto) 0.5, Absolute Neuts (auto) 6.2, Absolute Lymphs (auto) 0.97, Nucleated RBC % 0 02/02/20 05:18: Sodium 137, Potassium 5.4 H, Chloride 108 H, Carbon Dioxide 23.0, Anion Gap 6, BUN 65 H, Creatinine 4.63 H, Estim Creat Clear Calc 12.08, Est GFR (MDRD) Af Amer 17 L, Est GFR (MDRD) Non-Af 14 L, BUN/Creatinine Ratio 14.0, Glucose 106, Calcium 8.5, Total Bilirubin 0.50, AST 17, ALT 12 L, Alkaline Phosphatase 66, Total Protein 6.3 L, Albumin 3.0 L, Globulin 3.3, Albumin/Globulin Ratio 0.9, Triglycerides 152, Cholesterol 80, LDL Cholesterol 25, VLDL Cholesterol 30, HDL Cholesterol 25 L 02/02/20 06:48: POC Glucose 128 H 02/02/20 09:46: POC Glucose 150 H 02/02/20 11:54: POC Glucose 170 H Current Medications Acetaminophen (Tylenol) 650 mg PO Q6H PRN PRN PRN Reason: Pain Score 1-10/Temp > 100.7 F Al Hydroxide/Mg Hydroxide (Mylanta Ii) 30 ml PO Q6H PRN PRN PRN Reason: Gastric Burning Albuterol Sulfate (Ventolin Aerosols) 2.5 mg INHALATION Q2H PRN PRN PRN Reason: Dyspnea, wheezing Allopurinol (Zyloprim) 300 mg PO DAILY [facility] Last Admin: 02/02/20 10:15 Dose: 300 mg Documented by: Amiodarone HCl (Cordarone) 100 mg PO DAILY [facility] Last Admin: 02/02/20 10:14 Dose: 100 mg Documented by: Aspirin (Aspirin, Baby) 81 mg PO DAILY@0800 [facility] Last Admin: 02/02/20 10:15 Dose: 81 mg Documented by: Atorvastatin Calcium (Lipitor) 10 mg PO QHS [facility] Last Admin: 02/01/20 22:34 Dose: 10 mg Documented by: Colchicine (Colchicine) 0.6 mg PO DAILY [facility] Last Admin: 02/02/20 10:15 Dose: 0.6 mg Documented by: Guaifenesin (Robitussin) 20 ml PO Q4H PRN PRN PRN Reason: COUGH Heparin Sodium (Porcine) (Heparin Na) 5,000 unit SC Q8 [facility] Last Admin: 02/02/20 05:54 Dose: 5,000 unit Documented by: Furosemide 500 mg/ N/A 50 mls @ 1 mls/hr CONT INF .Q50H [facility] Last Infusion: 02/02/20 07:09 Dose: 10 mg/hr, 1 mls/hr Documented by: Sodium Chloride () 250 mls @ 15 mls/hr IV .[id number] PRN PRN Reason: Saline Flush Sodium Chloride () 250 mls @ 15 mls/hr IV .[id number] PRN PRN Reason: Additional IVPB Infusion Insulin Human Lispro (Humalog Kwikpen (Bkc)) 0 unit SC ACHS [facility]; Protocol Last Admin: 02/02/20 11:59 Dose: 1 units Documented by: Isosorbide Mononitrate (Imdur) 30 mg PO QAM [facility] Last Admin: 02/02/20 10:17 Dose: Not Given Documented by: Melatonin (Melatonin) 3 mg PO QHS PRN PRN PRN Reason: INSOMNIA Last Admin: 02/02/20 00:54 Dose: 3 mg Documented by: Metoprolol Tartrate (Lopressor (Beta Fany)) 100 mg PO BID [facility] Last Admin: 02/02/20 10:17 Dose: Not Given Documented by: Morphine Sulfate () 2 mg IV Q3H PRN PRN PRN Reason: Pain Score 6-10/10 Last Admin: 02/02/20 00:54 Dose: 2 mg Documented by: Nutritional Formula (Lactose Free) (Glucerna Shake) 120 ml PO 4X/DAY [facility] Last Admin: 02/02/20 10:16 Dose: Not Given Documented by: Ondansetron HCl (Zofran) 4 mg IV Q8H PRN PRN PRN Reason: NAUSEA/VOMITING Last Admin: 02/02/20 07:00 Dose: 4 mg Documented by: Oxycodone HCl (Oxyir) 5 mg PO Q4H PRN PRN PRN Reason: Pain Score 4-5/10 Last Admin: 02/02/20 02:05 Dose: 5 mg Documented by: Prochlorperazine Edisylate (Compazine Iv) 5 mg IV Q4H PRN PRN PRN Reason: Breakthrough nausea/vomiting Sodium Chloride () 10 - 40 ml IV UD PRN PRN Reason: SALINE FLUSH Last Admin: 02/01/20 18:05 Dose: 10 ml Documented by: Throat Lozenges (Cepacol Sore Throat Lozenge) 1 lozenge MUCOUS MEM Q2H PRN PRN PRN Reason: SORE THROAT Medical Necessity - Tobacco Use Smoking Status: Former smoker Tobacco Use: Non-smoker Assessment/Plan All Active Problems (Last Reviewed 02/01/20 @ 15:[address] Ciro Loyola MD) Hypoxemia (Acute) Influenza A (Acute) Venous stasis ulcer of right lower extremity (Acute) Venous stasis ulcer of left lower extremity (Acute) QAMAR (acute kidney injury) (Acute) Urinary retention (Acute) Aortocoronary bypass status (Resolved ~02/22/03) Tachycardia (Acute) 1. Acute on chronic CHF with preserved ejection fraction/history of ischemic cardiomyopathy-cardiology consulted. On Lasix drip. Echocardiogram June 2019 demonstrates an EF of 55%, pulmonary artery systolic pressure 65 to 70 mmHg consistent with severe pulmonary hypertension. Repeat echocardiogram pending. Strict I&O. Daily weight. Amando wraps bilateral lower extremities. 2. Acute kidney injury on chronic kidney disease stage III-nephrology consulted. Lee catheter placed by urology. Very low urine output. Obtain urine studies. CT of abdomen and pelvis shows nonobstructing bilateral nephrolithiasis, no hydronephrosis. 3. Chronic bilateral lower extremity lymphedema with superficial venous stasis ulcerations, secondary to filariasis-follows at wound center. Continue home snug Amando wraps and elevation. Diuresis as noted above. Wound RN consult. 4. CAD with history of CABG-continue aspirin, statin, metoprolol. 5. Type 2 diabetes mellitus-oral regimen on hold. Accu-Cheks with sliding scale insulin. 6. Pulmonary hypertension-Per echo as noted above. 7. Hypertension-stable, continue isosorbide, metoprolol with hold parameters. Hold lisinopril, Lasix, spironolactone. 8. Hyperlipidemia-continue statin. 9. Chronic normocytic anemia-stable, trend CBC. 10. Morbid obesity-encouraged diet lifestyle modifications. DVT prophylaxis-heparin subcu This patient was seen by ELAYNE Hallman under the supervision of Dr. Orozco. <Manuel Orozco - Last Filed: 02/02/20 13:46> - Physical Exam Vitals/I&O's: Vital Signs Temp Pulse Resp BP Pulse Ox 36.7 C 57 L 16 95/37 L 97 02/02/20 10:06 02/02/20 10:17 02/02/20 10:06 02/02/20 10:06 02/02/20 10:06 Oxygen Flow Rate (L/min) 2.5 Oxygen Delivery Method Nasal Cannula Weight: 113.897 kg Body Mass Index (BMI) 47.4 Intake and Output for Last 24 Hours 01/31/20 02/01/20 02/02/20 23:59 23:59 23:59 Intake Total 331.58 / 331.58 Output Total 0 / 150 400 / 400 Balance 0 / 50 -68.42 / -68.42 General: Alert, Cooperative HEENT: Atraumatic, Normocephalic Oral: Moist Mucosa Lungs: Clear to auscultation, Diminished Cardiovascular: Regular rate, No murmurs Abdomen: Bowel Sounds Present, Soft, Non Tender, Non-Distended, Distended, - Extremities: No clubbing, No cyanosis, Edema Skin: No rashes, No breakdown Musculoskeletal: No Tenderness to Palpation of Joints or Extremities Neurological: Cranial nerves II-XII grossly intact, Neuro grossly intact Psych/Mental Status: Normal Affect, Appropriate Laboratory Results 02/01/20 12:20: TSH 1.45, Free T4 1.27 02/01/20 12:20: Magnesium 1.9, Total Bilirubin 0.40, Direct Bilirubin 0.20, AST 18, ALT 14 L, Alkaline Phosphatase 65, Total Protein 6.5, Albumin 3.1 L, Globulin 3.4 02/01/20 15:05: Urine Color Red, Urine Clarity Cloudy, Urine pH 6.5, Ur Specific [place] 1.005, Urine Protein 100 H, Urine Glucose (UA) Normal, Urine Ketones Negative, Urine Occult Blood 250 H, Urine Nitrite Negative, Urine Bilirubin Negative, Urine Urobilinogen Normal, Ur Leukocyte Esterase 25 H, Urine RBC > 100 SEEN, Urine WBC 0-5 SEEN, Ur Squamous Epith Cells 0-5 SEEN, Urine Bacteria 0 SEEN, Urine Mucus 0 SEEN 02/01/20 17:41: Troponin I < 0.015 02/01/20 17:43: POC Glucose 87 02/01/20 20:40: PT 15.2 H, INR 1.3, APTT 39.1 H 02/01/20 20:40: Troponin I < 0.015 02/01/20 22:28: POC Glucose 96 02/02/20 05:18: WBC 8.3, RBC 3.95 L, Hgb 10.8 L, Hct 38.0 L, MCV 96.2 H D, MCH 27.3, MCHC 28.4 L, RDW Std Deviation 58.8 H, RDW Coeff of Aubrey 16.8 H, Plt Count 208, MPV 11.5, Immature Gran % (Auto) 0.400, Neut % (Auto) 74.8 H, Lymph % (Auto) 11.6 L, Peach % (Auto) 9.1, Eos % (Auto) 3.6, Baso % (Auto) 0.5, Absolute Neuts (auto) 6.2, Absolute Lymphs (auto) 0.97, Nucleated RBC % 0 02/02/20 05:18: Sodium 137, Potassium 5.4 H, Chloride 108 H, Carbon Dioxide 23.0, Anion Gap 6, BUN 65 H, Creatinine 4.63 H, Estim Creat Clear Calc 12.08, Est GFR (MDRD) Af Amer 17 L, Est GFR (MDRD) Non-Af 14 L, BUN/Creatinine Ratio 14.0, Glucose 106, Calcium 8.5, Total Bilirubin 0.50, AST 17, ALT 12 L, Alkaline Phosphatase 66, Total Protein 6.3 L, Albumin 3.0 L, Globulin 3.3, Albumin/Globulin Ratio 0.9, Triglycerides 152, Cholesterol 80, LDL Cholesterol 25, VLDL Cholesterol 30, HDL Cholesterol 25 L 02/02/20 06:48: POC Glucose 128 H 02/02/20 09:46: POC Glucose 150 H 02/02/20 11:54: POC Glucose 170 H Current Medications Acetaminophen (Tylenol) 650 mg PO Q6H PRN PRN PRN Reason: Pain Score 1-10/Temp > 100.7 F Al Hydroxide/Mg Hydroxide (Mylanta Ii) 30 ml PO Q6H PRN PRN PRN Reason: Gastric Burning Albuterol Sulfate (Ventolin Aerosols) 2.5 mg INHALATION Q2H PRN PRN PRN Reason: Dyspnea, wheezing Allopurinol (Zyloprim) 300 mg PO DAILY [facility] Last Admin: 02/02/20 10:15 Dose: 300 mg Documented by: Amiodarone HCl (Cordarone) 100 mg PO DAILY [facility] Last Admin: 02/02/20 10:14 Dose: 100 mg Documented by: Aspirin (Aspirin, Baby) 81 mg PO DAILY@0800 [facility] Last Admin: 02/02/20 10:15 Dose: 81 mg Documented by: Atorvastatin Calcium (Lipitor) 10 mg PO QHS [facility] Last Admin: 02/01/20 22:34 Dose: 10 mg Documented by: Colchicine (Colchicine) 0.6 mg PO DAILY [facility] Last Admin: 02/02/20 10:15 Dose: 0.6 mg Documented by: Guaifenesin (Robitussin) 20 ml PO Q4H PRN PRN PRN Reason: COUGH Heparin Sodium (Porcine) (Heparin Na) 5,000 unit SC Q8 [facility] Last Admin: 02/02/20 05:54 Dose: 5,000 unit Documented by: Furosemide 500 mg/ N/A 50 mls @ 1 mls/hr CONT INF .Q50H [facility] Last Infusion: 02/02/20 07:09 Dose: 10 mg/hr, 1 mls/hr Documented by: Sodium Chloride () 250 mls @ 15 mls/hr IV .[id number] PRN PRN Reason: Saline Flush Sodium Chloride () 250 mls @ 15 mls/hr IV .[id number] PRN PRN Reason: Additional IVPB Infusion Insulin Human Lispro (Humalog Kwikpen (Bkc)) 0 unit SC ACHS [facility]; Protocol Last Admin: 02/02/20 11:59 Dose: 1 units Documented by: Isosorbide Mononitrate (Imdur) 30 mg PO QAM [facility] Last Admin: 02/02/20 10:17 Dose: Not Given Documented by: Melatonin (Melatonin) 3 mg PO QHS PRN PRN PRN Reason: INSOMNIA Last Admin: 02/02/20 00:54 Dose: 3 mg Documented by: Metoprolol Tartrate (Lopressor (Beta Fany)) 100 mg PO BID [facility] Last Admin: 02/02/20 10:17 Dose: Not Given Documented by: Morphine Sulfate () 2 mg IV Q3H PRN PRN PRN Reason: Pain Score 6-10/10 Last Admin: 02/02/20 00:54 Dose: 2 mg Documented by: Ondansetron HCl (Zofran) 4 mg IV Q8H PRN PRN PRN Reason: NAUSEA/VOMITING Last Admin: 02/02/20 07:00 Dose: 4 mg Documented by: Oxycodone HCl (Oxyir) 5 mg PO Q4H PRN PRN PRN Reason: Pain Score 4-5/10 Last Admin: 02/02/20 02:05 Dose: 5 mg Documented by: Prochlorperazine Edisylate (Compazine Iv) 5 mg IV Q4H PRN PRN PRN Reason: Breakthrough nausea/vomiting Sodium Chloride () 10 - 40 ml IV UD PRN PRN Reason: SALINE FLUSH Last Admin: 02/01/20 18:05 Dose: 10 ml Documented by: Throat Lozenges (Cepacol Sore Throat Lozenge) 1 lozenge MUCOUS MEM Q2H PRN PRN PRN Reason: SORE THROAT Assessment/Plan Patient seen and examined independently. Data reviewed. I agree with the above note by the nurse practitioner. 1. Acute on chronic heart failure preserved ejection fraction: On furosemide drip. Patient is, gated patient with severe pulmonary hypertension. With patient's worsening kidney function, will consult nephrology for further input. 2. Acute kidney injury: Worse. Nephrology consultation. Inpatient E&M: [id number] Subs Hosp L2
--- NOTE | 2020-02-02 13:38 | CASEMGMT ---
This RN CM to room to complete CM assessment at this time and pt is sleeping without distress in the chair at this time. Will attempt again later. SStpina GALLARDO CM
--- NOTE | 2020-02-02 14:54 | CON.PCM_ITS ---
Consultation - Renal 02/02/20 PCP/ Referring MD: Requesting physician: Maureen Fontanez, TORRI, Manuel Orozco DO Primary care physician: Dr. Manuel Sandoval MD Reason for Consultation:: QAMAR on CKD - History of Present Illness History of Present Illness: The patient is a 64 year old M with past history of T2DM, CAD s/p CABG, HTN, anemia, HFpEF (EF 55% on echocardiogram from 06/2019), and pulmonary HTN (PAP 65- 70 mmHg). The pt is admitted with a 1-2 weeks history of increasing LE edema. He has chonic lymphedema and chronic LE wound which was previously followed at the wound clinic. He also noticed decreasing UOP prior to admission for 2-3 days. The pt has a history of CKD stage 3. His SCR from 12/05/19 was 1.67 mg/dL, but he has never been seen by nephrology as far as he knows. The pt denies current CP. He denies SOB at rest but still has dyspnea on exertion. He is more easily fatigued than usual. He reports intermittent nausea without vomiting. He has chronic diarrhea. He still has loose BM although it is more formed today. LE edema is improving, especially the R LE, since admission. The pt denies chronic use of NSAID. CT of abdomen this admission did not show hydronephrosis, but he has several BL non-obstructing kidney stones. - Allergies Allergies: Allergies No Known Allergies Allergy (Verified 02/01/20 11:51) - Current Medications Current Medications: Current Medications Acetaminophen (Tylenol) 650 mg PO Q6H PRN PRN PRN Reason: Pain Score 1-10/Temp > 100.7 F Al Hydroxide/Mg Hydroxide (Mylanta Ii) 30 ml PO Q6H PRN PRN PRN Reason: Gastric Burning Albuterol Sulfate (Ventolin Aerosols) 2.5 mg INHALATION Q2H PRN PRN PRN Reason: Dyspnea, wheezing Allopurinol (Zyloprim) 300 mg PO DAILY [facility] Last Admin: 02/02/20 10:15 Dose: 300 mg Documented by: Amiodarone HCl (Cordarone) 100 mg PO DAILY [facility] Last Admin: 02/02/20 10:14 Dose: 100 mg Documented by: Aspirin (Aspirin, Baby) 81 mg PO DAILY@0800 [facility] Last Admin: 02/02/20 10:15 Dose: 81 mg Documented by: Atorvastatin Calcium (Lipitor) 10 mg PO QHS [facility] Last Admin: 02/01/20 22:34 Dose: 10 mg Documented by: Colchicine (Colchicine) 0.6 mg PO DAILY [facility] Last Admin: 02/02/20 10:15 Dose: 0.6 mg Documented by: Guaifenesin (Robitussin) 20 ml PO Q4H PRN PRN PRN Reason: COUGH Heparin Sodium (Porcine) (Heparin Na) 5,000 unit SC Q8 [facility] Last Admin: 02/02/20 14:13 Dose: 5,000 unit Documented by: Furosemide 500 mg/ N/A 50 mls @ 1 mls/hr CONT INF .Q50H [facility] Last Infusion: 02/02/20 07:09 Dose: 10 mg/hr, 1 mls/hr Documented by: Sodium Chloride () 250 mls @ 15 mls/hr IV .[id number] PRN PRN Reason: Saline Flush Sodium Chloride () 250 mls @ 15 mls/hr IV .[id number] PRN PRN Reason: Additional IVPB Infusion Insulin Human Lispro (Humalog Kwikpen (Bkc)) 0 unit SC ACHS [facility]; Protocol Last Admin: 02/02/20 11:59 Dose: 1 units Documented by: Isosorbide Mononitrate (Imdur) 30 mg PO QAM [facility] Last Admin: 02/02/20 10:17 Dose: Not Given Documented by: Melatonin (Melatonin) 3 mg PO QHS PRN PRN PRN Reason: INSOMNIA Last Admin: 02/02/20 00:54 Dose: 3 mg Documented by: Metoprolol Tartrate (Lopressor (Beta Fany)) 100 mg PO BID [facility] Last Admin: 02/02/20 10:17 Dose: Not Given Documented by: Morphine Sulfate () 2 mg IV Q3H PRN PRN PRN Reason: Pain Score 6-10/10 Last Admin: 02/02/20 00:54 Dose: 2 mg Documented by: Ondansetron HCl (Zofran) 4 mg IV Q8H PRN PRN PRN Reason: NAUSEA/VOMITING Last Admin: 02/02/20 07:00 Dose: 4 mg Documented by: Oxycodone HCl (Oxyir) 5 mg PO Q4H PRN PRN PRN Reason: Pain Score 4-5/10 Last Admin: 02/02/20 02:05 Dose: 5 mg Documented by: Prochlorperazine Edisylate (Compazine Iv) 5 mg IV Q4H PRN PRN PRN Reason: Breakthrough nausea/vomiting Sodium Chloride () 10 - 40 ml IV UD PRN PRN Reason: SALINE FLUSH Last Admin: 02/01/20 18:05 Dose: 10 ml Documented by: Throat Lozenges (Cepacol Sore Throat Lozenge) 1 lozenge MUCOUS MEM Q2H PRN PRN PRN Reason: SORE THROAT - Past Medical History Past Medical History (Chronic Problems): Chronic Problems (Last Reviewed 02/01/20 @ 15:[address] 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) Essential hypertension (Chronic) Pure hypercholesterolemia (Chronic) Atherosclerosis of coronary artery bypass graft without angina pectoris (Chronic) CABG x6 ; Internal Mammary to Anterior Descending, SVG to diag branch of the Anterior descending,SVG to the lateral & posteriorlateral CX, SVG to Posterior Descending and continuation branches of the RCA 02/27/03 Chronic systolic congestive heart failure (Chronic) Ischemic cardiomyopathy (Chronic) Pulmonary hypertension (Chronic) Presence of cardiac defibrillator (Chronic ~08/2004) Old myocardial infarction (Chronic) - Past Surgical History Surgical History: coronary bypass surgery, - - AICD placement in addition to CABG x6. - Social History Smoking Status: Former smoker Alcohol: Occasional Drugs: None - Family History Paternal Family History: Family History (Last Reviewed 12/29/19 @ 12:18 by Maureen Dove) Mother Hypertension Sister Hypertension History Items: Hypertension Sibling Family History: Family History (Last Reviewed 12/29/19 @ 12:18 by Maureen Dove) Mother Hypertension Sister Hypertension History Items: Hypertension Maternal Family History: Family History (Last Reviewed 12/29/19 @ 12:18 by Maureen Dove) Mother Hypertension Sister Hypertension History Items: Hypertension Review of Systems Constitutional: Reports: Weakness, Fatigue. Denies: Anorexia, Chills, Fever Eyes: Denies: Blurred vision, Pain, Redness HEENT: Denies: Difficulty Hearing, Head Aches, Nasal bleeding Cardiovascular: Reports: Edema, Orthopnea. Denies: Chest Pain, Chest Pressure Respiratory: Reports: Shortness of breath upon exertion. Denies: Cough, Hemoptysis Gastrointestinal: Reports: Diarrhea, Nausea - occasional. Denies: Abdominal Pain Genitourinary: Denies: Dysuria, Frequency, Hematuria, Incontinence Skin: Reports: Wounds. Denies: Jaundice, Pruritis, Rash Neurological: Denies: Numbness, Tingling, Focal weakness Psychiatric: Denies: Anxiety, Depression, Homicidal Ideations, Suicidal Ideations Hematologic/ Lymphatic: Denies: Easy Bruising, Easy Bleeding Patient Problems: Active and Suspected Problems (Last Reviewed 02/01/20 @ 15:[address] Ciro Loyola MD) QAMAR (acute kidney injury) (Acute) Urinary retention (Acute) - Physical Exam Vitals/I&O's: Vital Signs Temp Pulse Resp BP Pulse Ox 98.1 F 57 L 16 95/37 L 97 02/02/20 10:06 02/02/20 10:17 02/02/20 10:06 02/02/20 10:06 02/02/20 10:06 Oxygen Flow Rate (L/min) 2.5 Oxygen Delivery Method Nasal Cannula Weight: 113.897 kg Body Mass Index (BMI) 47.4 Intake and Output for Last 24 Hours 01/31/20 02/01/20 02/02/20 23:59 23:59 23:59 Intake Total 331.58 / 331.58 Output Total 0 / 150 400 / 400 Balance 0 / 50 -68.42 / -68.42 General: Alert, Oriented x3 HEENT: Atraumatic, PERRLA, EOMI Oral: Moist Mucosa Neck: Supple Lungs: Diminished - at bases. L>R Cardiovascular: Normal S1, Normal S2, No murmurs Abdomen: Bowel Sounds Present, Soft, Non Tender Extremities: No clubbing, Edema - 4+ LE Skin: No rashes Musculoskeletal: No Tenderness to Palpation of Joints or Extremities Neurological: Cranial nerves II-XII grossly intact Psych/Mental Status: Normal Affect Laboratory Results 02/01/20 12:20: TSH 1.45, Free T4 1.27 02/01/20 12:20: Magnesium 1.9, Total Bilirubin 0.40, Direct Bilirubin 0.20, AST 18, ALT 14 L, Alkaline Phosphatase 65, Total Protein 6.5, Albumin 3.1 L, Globulin 3.4 02/01/20 15:05: Urine Color Red, Urine Clarity Cloudy, Urine pH 6.5, Ur Specific [place] 1.005, Urine Protein 100 H, Urine Glucose (UA) Normal, Urine Ketones Negative, Urine Occult Blood 250 H, Urine Nitrite Negative, Urine Bilirubin Negative, Urine Urobilinogen Normal, Ur Leukocyte Esterase 25 H, Urine RBC > 100 SEEN, Urine WBC 0-5 SEEN, Ur Squamous Epith Cells 0-5 SEEN, Urine Bacteria 0 SEEN, Urine Mucus 0 SEEN 02/01/20 17:41: Troponin I < 0.015 02/01/20 17:43: POC Glucose 87 02/01/20 20:40: PT 15.2 H, INR 1.3, APTT 39.1 H 02/01/20 20:40: Troponin I < 0.015 02/01/20 22:28: POC Glucose 96 02/02/20 05:18: WBC 8.3, RBC 3.95 L, Hgb 10.8 L, Hct 38.0 L, MCV 96.2 H D, MCH 27.3, MCHC 28.4 L, RDW Std Deviation 58.8 H, RDW Coeff of Aburey 16.8 H, Plt Count 208, MPV 11.5, Immature Gran % (Auto) 0.400, Neut % (Auto) 74.8 H, Lymph % (Auto) 11.6 L, [place] % (Auto) 9.1, Eos % (Auto) 3.6, Baso % (Auto) 0.5, Absolute Neuts (auto) 6.2, Absolute Lymphs (auto) 0.97, Nucleated RBC % 0 02/02/20 05:18: Sodium 137, Potassium 5.4 H, Chloride 108 H, Carbon Dioxide 23.0, Anion Gap 6, BUN 65 H, Creatinine 4.63 H, Estim Creat Clear Calc 12.08, Est GFR (MDRD) Af Amer 17 L, Est GFR (MDRD) Non-Af 14 L, BUN/Creatinine Ratio 14.0, Glucose 106, Calcium 8.5, Total Bilirubin 0.50, AST 17, ALT 12 L, Alkaline Phosphatase 66, Total Protein 6.3 L, Albumin 3.0 L, Globulin 3.3, Albumin/Globulin Ratio 0.9, Triglycerides 152, Cholesterol 80, LDL Cholesterol 25, VLDL Cholesterol 30, HDL Cholesterol 25 L 02/02/20 06:48: POC Glucose 128 H 02/02/20 09:46: POC Glucose 150 H 02/02/20 11:54: POC Glucose 170 H Current Medications Acetaminophen (Tylenol) 650 mg PO Q6H PRN PRN PRN Reason: Pain Score 1-10/Temp > 100.7 F Al Hydroxide/Mg Hydroxide (Mylanta Ii) 30 ml PO Q6H PRN PRN PRN Reason: Gastric Burning Albuterol Sulfate (Ventolin Aerosols) 2.5 mg INHALATION Q2H PRN PRN PRN Reason: Dyspnea, wheezing Allopurinol (Zyloprim) 300 mg PO DAILY [facility] Last Admin: 02/02/20 10:15 Dose: 300 mg Documented by: Amiodarone HCl (Cordarone) 100 mg PO DAILY [facility] Last Admin: 02/02/20 10:14 Dose: 100 mg Documented by: Aspirin (Aspirin, Baby) 81 mg PO DAILY@0800 [facility] Last Admin: 02/02/20 10:15 Dose: 81 mg Documented by: Atorvastatin Calcium (Lipitor) 10 mg PO QHS [facility] Last Admin: 02/01/20 22:34 Dose: 10 mg Documented by: Colchicine (Colchicine) 0.6 mg PO DAILY [facility] Last Admin: 02/02/20 10:15 Dose: 0.6 mg Documented by: Guaifenesin (Robitussin) 20 ml PO Q4H PRN PRN PRN Reason: COUGH Heparin Sodium (Porcine) (Heparin Na) 5,000 unit SC Q8 [facility] Last Admin: 02/02/20 14:13 Dose: 5,000 unit Documented by: Furosemide 500 mg/ N/A 50 mls @ 1 mls/hr CONT INF .Q50H [facility] Last Infusion: 02/02/20 07:09 Dose: 10 mg/hr, 1 mls/hr Documented by: Sodium Chloride () 250 mls @ 15 mls/hr IV .[id number] PRN PRN Reason: Saline Flush Sodium Chloride () 250 mls @ 15 mls/hr IV .[id number] PRN PRN Reason: Additional IVPB Infusion Insulin Human Lispro (Humalog Kwikpen (Bkc)) 0 unit SC ACHS [facility]; Protocol Last Admin: 02/02/20 11:59 Dose: 1 units Documented by: Isosorbide Mononitrate (Imdur) 30 mg PO QAM [facility] Last Admin: 02/02/20 10:17 Dose: Not Given Documented by: Melatonin (Melatonin) 3 mg PO QHS PRN PRN PRN Reason: INSOMNIA Last Admin: 02/02/20 00:54 Dose: 3 mg Documented by: Metoprolol Tartrate (Lopressor (Beta Fany)) 100 mg PO BID [facility] Last Admin: 02/02/20 10:17 Dose: Not Given Documented by: Morphine Sulfate () 2 mg IV Q3H PRN PRN PRN Reason: Pain Score 6-10/10 Last Admin: 02/02/20 00:54 Dose: 2 mg Documented by: Ondansetron HCl (Zofran) 4 mg IV Q8H PRN PRN PRN Reason: NAUSEA/VOMITING Last Admin: 02/02/20 07:00 Dose: 4 mg Documented by: Oxycodone HCl (Oxyir) 5 mg PO Q4H PRN PRN PRN Reason: Pain Score 4-5/10 Last Admin: 02/02/20 02:05 Dose: 5 mg Documented by: Prochlorperazine Edisylate (Compazine Iv) 5 mg IV Q4H PRN PRN PRN Reason: Breakthrough nausea/vomiting Sodium Chloride () 10 - 40 ml IV UD PRN PRN Reason: SALINE FLUSH Last Admin: 02/01/20 18:05 Dose: 10 ml Documented by: Throat Lozenges (Cepacol Sore Throat Lozenge) 1 lozenge MUCOUS MEM Q2H PRN PRN PRN Reason: SORE THROAT Assessment/Plan All Active Problems (Last Reviewed 02/01/20 @ 15:[address] Ciro Loyola MD) Hypoxemia (Acute) Influenza A (Acute) Venous stasis ulcer of right lower extremity (Acute) Venous stasis ulcer of left lower extremity (Acute) QAMAR (acute kidney injury) (Acute) Urinary retention (Acute) Aortocoronary bypass status (Resolved ~02/22/03) Tachycardia (Acute) 1. Acute kidney injury on chronic kidney disease stage 3. baseline SCr from 11/2019 was 1.67 mg/dL. Suspect QAMAR is due to cardiorenal syndrome. Possible that prerenal QAMAR from CRS could progress to ischemic ATN as well. No obstruction seen on CT of abdomen this admission. UA showed 2+ protein and many RBC, but I have low suspicion for acute GN at this point. Low suspicion also for other causes of QAMAR such as AIN. Agree with current treatment with Lasix drip. If QAMAR is primarily due to HF, SCr may stabilize or improve. I did tell the patient that dialysis may be needed, if not this admission, in the future as I am pretty sure he has underlying CKD from diabetic nephropathy. Continue current treatment. Will check urine indices and complements (since he has microscopic hematuria). No urgent need for kidney replacement therapy today. Current medications are reviewed and are appropriately dosed for the current CrCl. 2. Hyperkalemia. K is mildly increased. Likely due to QAMAR/CKD. Should improve if he responds to Lasix drip. Recheck K in am. 3. Heart failure with preserved ejection fraction. Pt's situation is also complicated by pulmonary HTN and QAMAR on CKD. Agree with diuresis with Lasix drip. I suspect he has KEVIN given his hsitory and body habitis. This may be contributing to HF especially the R sided manifestation. May benefit from sleep study and CPAP if indicated-will discuss with primary service.
--- NOTE | 2020-02-02 15:13 | CASEMGMT ---
SAMI VELASCO assessment: Face to Face with patient for initial transition planning/care coordination assessment. SAMI VELASCO introduced self and role at [facility], pt voices understanding and consents to assessment at this time. Pt is sitting up in chair in no distress at this time. Pt is A/Ox4 at this time and answers all questions appropriately at this time. Care providers, pharmacy, and demographics verified at this time. Presentation: Pt here for c/o abd/leg pain-pt sees wound center for legs-both appear to have swelling Admitting dx: QAMAR secondary to retention PCP: Jaime Specialists: westley Lucas Preferred Pharmacy: [facility] Insurance: [facility] A/B Prescription Benefit: MCR D Living Will/HPOA: Pt does not have LW/HPOA and declines AD info at this time. LNOK: Reggie Orlando, brother in law; Tiny Orlando, nephew's Living Arrangements: Pt states lives with sister and [id number] in home and states no concerns at home at this time. Pt states is independent with ADL's. Transportation: Pt states has family for transport or uses [facility] van and states no transportation concerns at this time. DME/HHC: Pt states has a cane, shower chair, and 2liters home oxygen thru [employer]. Pt states no need for any further DME at this time. Pt states no hx of HHC or SNF in the past. Pt states no concerns with going home at time of discharge. Pt is on disability. Pt states does not smoke cigarettes or drink WTOH. Pt states no further concerns/needs at this time. CM to follow for any further discharge planning/needs. Advised pt to ask for CM if any further questions/concerns/needs arise, voices understanding. Pt Goal: Home Plan[place] SAMI VELASCO
[2020-02-02 16:51] LABS: Bedside Glucose 142 mg/dL (70-110)
[2020-02-02 17:11] LABS: Urine Sodium 27 mmol/L (Not Establ.)
[2020-02-02 17:35] LABS: Protein, Urine (Random) 237.1 mg/dL (<11.9); Protein:Creat Ratio 1151 mg/g CRE (0-200)
--- NOTE | 2020-02-02 18:53 | PN.CARD_ITS ---
Subjectve: Patient seen and evaluated. Appears to be short of breath and uncomfortable lying down. He is therefore sitting in his chair. Objective: Vital Signs Temp Pulse Resp BP Pulse Ox 97.4 F L 58 L 18 106/49 L 98 02/02/20 15:51 02/02/20 15:51 02/02/20 15:51 02/02/20 15:51 02/02/20 15:51 Oxygen Flow Rate (L/min) 2 Oxygen Delivery Method Nasal Cannula Weight: 251 lb 1.598 oz Body Mass Index (BMI) 47.4 Intake and Output for Last 24 Hours 01/31/20 02/01/20 02/02/20 23:59 23:59 23:59 Intake Total 331.58 / 331.58 Output Total 0 / 150 475 / 475 Balance 0 / 50 -143.42 / -143.42 General: Awake, Alert, Oriented x 3, Ill Appearing HEENT: PERRL, EOMI, Sclera Non Icteric Neck: Supple, Good ROM, No Lymph Node Enlargement Lungs: Clear to auscultation Cardiovascular: Regular Rhythm, Normal S1, Normal S2, No Murmurs, No Rubs, No Gallops Vascular: No Carotid Bruits, Normal Femoral Pulses, Normal Radial Pulses, Normal Dorsalis Pedal Pulse, Normal Posterior Tibial Pulses Abdomen: Bowel Sounds Present, Soft, Non Tender, No HSM, No Organomegaly Extremities: No Cyanosis, No Clubbing, Bilateral Edema +2 Musculoskeletal: No Erythema Lymphatic: No Lymph Node Enlargement Neurological: No Focal Motor or Sensory Deficit Psych/Mental Status: Appropriate 02/01/20 20:40: PT 15.2 H, INR 1.3, APTT 39.1 H 02/01/20 20:40: Troponin I < 0.015 02/02/20 05:18: WBC 8.3, RBC 3.95 L, Hgb 10.8 L, Hct 38.0 L, MCV 96.2 H D, MCH 27.3, MCHC 28.4 L, Plt Count 208, MPV 11.5, Immature Gran % (Auto) 0.400, Neut % (Auto) 74.8 H, Lymph % (Auto) 11.6 L, [place] % (Auto) 9.1, Eos % (Auto) 3.6, Baso % (Auto) 0.5, Absolute Neuts (auto) 6.2, Nucleated RBC % 0 02/02/20 05:18: Sodium 137, Potassium 5.4 H, Chloride 108 H, Carbon Dioxide 23.0, Anion Gap 6, BUN 65 H, Creatinine 4.63 H, Est GFR (MDRD) Af Amer 17 L, Est GFR (MDRD) Non-Af 14 L, BUN/Creatinine Ratio 14.0, Glucose 106, Calcium 8.5, Total Bilirubin 0.50, Triglycerides 152, Cholesterol 80, LDL Cholesterol 25, VLDL Cholesterol 30, HDL Cholesterol 25 L Rhythm: EKG: ECHO: Stress Test: Cardiac Cath: PCI: CT Surgery: Holter monitor: EPS: PPM: CXR: Chest CT Scan: Medical Necessity - Tobacco Use Smoking Status: Former smoker Tobacco Use: Non-smoker Assessment/Plan 1. Atherosclerosis of coronary artery bypass graft of [place] heart without angina pectoris I25.810 CABG x6 ; Internal Mammary to Anterior Descending, SVG to diag branch of the Anterior descending,SVG to the lateral & posteriorlateral CX, SVG to Posterior Descending and continuation branches of the RCA 02/27/03 At the present time he appears to be doing well with no acute symptoms or adverse events. He will continue his current medical management and follow-up. I would recommend reducing the dose of his beta-carlin. 2. Postsurgical aortocoronary bypass status Z95.1 CABG x6 ; Internal Mammary to Anterior Descending, SVG to diag branch of the Anterior descending,SVG to the lateral & posteriorlateral CX, SVG to Posterior Descending and continuation branches of the RCA 02/27/03 Once again he appears to be on a rather high dose of beta-carlin he is not had any angina. 3. Cardiomyopathy, ischemic I25.5 * His echocardiogram today demonstrated overall preserved left ventricular systolic function. He does have impaired right ventricular function with pulmonary hypertension. 4. Chronic systolic CHF (congestive heart failure) I50.22 Plan He has no ongoing acute on chronic systolic mediated CHF issues. He will continue his medical therapy. He does have impaired right ventricular function. I would recommend intravenous diuresis with the Lasix drip as we are doing. 5. Presence of cardiac defibrillator Z95.810 Plan He states his ICD has not discharged since his last interrogation. He will continue with future outpatient interrogations. 6. Pure hypercholesterolemia E78.00 Plan His lipid labs have been reviewed. Overall his total cholesterol and LDL cholesterol appear to be under reasonably good control. He will continue medical therapy. 7. Essential hypertension I10 Plan His blood pressure appears to be reasonably well controlled. He will continue medical management. Thank you for allowing me to participate in the care of your patient. Please don't hesitate to call if any issues arise.
[2020-02-02] MEDS: Atorvastatin Calcium 10 MG Tablet PO (21:30)
[2020-02-02 22:15] LABS: Bedside Glucose 131 mg/dL (70-110)
[2020-02-02] MEDS: Furosemide 500 MG in Empty Viaflex 50 mL 1 EACH CONT INF (23:18)
[2020-02-03] VITALS (12 sets, daily range): BP systolic 83–107; BP diastolic 48–66; PULSE 55–64; RESP 16–18; TEMP 36.3–36.7; O2SAT 96–100
--- NOTE | 2020-02-03 01:49 | PCM.PN.BLA ---
Progress Note Rate of Lasix drip decreased secondary to hypotension. Parameters placed. STROKE Vital Signs/Narrative: Vital Signs Temp Pulse Resp BP Pulse Ox 02/03/20 01:15 98.0 F 60 18 83/48 L 100 02/02/20 23:15 97.8 F 56 L 16 90/51 L 99 02/02/20 22:00 56 L
[2020-02-03] MEDS: oxyCODONE 5 MG Tablet PO ×2 (02:57→10:02)
[2020-02-03] MEDS: Acetaminophen 325 MG Tablet 650 MG PO (05:21)
[2020-02-03] MEDS: Heparin Injection (Vial) 5,000 UNIT/ML VIAL 5000 UNIT SC ×3 (05:21→22:07)
[2020-02-03] MEDS: Furosemide 500 MG in Empty Viaflex 50 mL 1 EACH CONT INF ×2 (05:23→08:13)
[2020-02-03 06:10] LABS: Hemoglobin 11.1 g/dL (13.0-16.5); Mean Corp Hgb Conc 29.2 g/dL (32-36); Mean Corpuscular Volume 92.5 fL (80-94); Mean Platelet Vol. 10.9 fl (6.2-12.0); Platelet Count 233 K/mm3 (150-450); RBC Distribution Width SD 57.1 fl (35.1-43.9); Red Blood Count 4.11 M/mm3 (4.6-6.2); White Blood Count 9.5 K/mm3 (4.4-11.0)
[2020-02-03 06:41] LABS: Anion Gap 5 (5-15); BUN 71 mg/dL (7-18); BUN/Creat Ratio 13.3 RATIO (10-20); Calcium,Total 8.4 mg/dL (8.5-10.1); Chloride 105 mmol/L (98-107); Creatinine, Serum 5.34 mg/dL (0.70-1.30); EST Glomerular Filtration Rate 12 mL/min (>60); Est Glom Filt Rate - Afr Amer 14 mL/min (>60); Estimated Creatinine Clearance 10.47 ml/min; Glucose 127 mg/dL (74-106); Magnesium 2.3 mg/dL (1.6-2.6); Potassium 5.6 mmol/L (3.5-5.1); Sodium Level 136 mmol/L (136-145)
[2020-02-03] MEDS: metOLazone 5 MG Tablet PO (06:56)
[2020-02-03 07:06] LABS: Bedside Glucose 117 mg/dL (70-110)
--- NOTE | 2020-02-03 07:18 | PN.CARD_ITS ---
Subjectve: Patient seen and evaluated. Appears to be doing okay. No major changes noted Objective: Vital Signs Temp Pulse Resp BP Pulse Ox 97.3 F L 57 L 18 95/66 99 02/03/20 05:00 02/03/20 05:00 02/03/20 05:00 02/03/20 05:00 02/03/20 05:00 Oxygen Flow Rate (L/min) 2 Oxygen Delivery Method Nasal Cannula Weight: 251 lb 1.598 oz Body Mass Index (BMI) 47.4 Intake and Output for Last 24 Hours 02/01/20 02/02/20 02/03/20 23:59 23:59 23:59 Intake Total 468.41 / 468.41 442.18 / 442.18 Output Total 0 / 150 550 / 550 30 / 30 Balance 0 / 50 -81.59 / -81.59 412.18 / 412.18 General: Awake, Alert, Oriented x 3, Ill Appearing HEENT: PERRL, EOMI, Sclera Non Icteric Neck: Supple, Good ROM, No Lymph Node Enlargement Lungs: Clear to auscultation Cardiovascular: Regular Rhythm, Normal S1, Normal S2, No Murmurs, No Rubs, No Gallops Vascular: No Carotid Bruits, Normal Femoral Pulses, Normal Radial Pulses, Normal Dorsalis Pedal Pulse, Normal Posterior Tibial Pulses Abdomen: Bowel Sounds Present, Soft, Non Tender, No HSM, No Organomegaly Extremities: No Cyanosis, No Clubbing, Bilateral Edema +3 Neurological: No Focal Motor or Sensory Deficit Psych/Mental Status: Appropriate 02/03/20 05:48: WBC 9.5, RBC 4.11 L, Hgb 11.1 L, Hct 38.0 L, MCV 92.5, MCH 27.0, MCHC 29.2 L, Plt Count 233, MPV 10.9 02/03/20 05:48: Sodium 136, Potassium 5.6 H, Chloride 105, Carbon Dioxide 26.0, Anion Gap 5, BUN 71 H, Creatinine 5.34 H, Est GFR (MDRD) Af Amer 14 L, Est GFR (MDRD) Non-Af 12 L, BUN/Creatinine Ratio 13.3, Glucose 127 H, Calcium 8.4 L, Magnesium 2.3 Rhythm: EKG: ECHO: Stress Test: Cardiac Cath: PCI: CT Surgery: Holter monitor: EPS: PPM: CXR: Chest CT Scan: Medical Necessity - Tobacco Use Smoking Status: Former smoker Tobacco Use: Non-smoker Assessment/Plan 1. Atherosclerosis of coronary artery bypass graft of [place] heart without angina pectoris I25.810 CABG x6 ; Internal Mammary to Anterior Descending, SVG to diag branch of the Anterior descending,SVG to the lateral & posteriorlateral CX, SVG to Posterior Descending and continuation branches of the RCA 02/27/03 At the present time he appears to be doing well with no acute symptoms or adverse events. He will continue his current medical management and follow-up. I would recommend reducing the dose of his beta-carlin. 2. Postsurgical aortocoronary bypass status Z95.1 CABG x6 ; Internal Mammary to Anterior Descending, SVG to diag branch of the Anterior descending,SVG to the lateral & posteriorlateral CX, SVG to Posterior Descending and continuation branches of the RCA 02/27/03 Once again he appears to be on a rather high dose of beta-carlin he is not had any angina. 3. Cardiomyopathy, ischemic I25.5 * His echocardiogram today demonstrated overall preserved left ventricular systolic function. He does have impaired right ventricular function with pulmonary hypertension. 4. Chronic systolic CHF (congestive heart failure) I50.22 Plan He has no ongoing acute on chronic systolic mediated CHF issues. He will continue his medical therapy. He does have impaired right ventricular function. I would recommend intravenous diuresis with the Lasix drip as we are doing. * The rate appears to have been decreased during the night. The above was due to hypotension. * Would await renal service input. But it appears his creatinine is worsening. 5. Presence of cardiac defibrillator Z95.810 Plan He states his ICD has not discharged since his last interrogation. He will continue with future outpatient interrogations. 6. Pure hypercholesterolemia E78.00 Plan His lipid labs have been reviewed. Overall his total cholesterol and LDL cholesterol appear to be under reasonably good control. He will continue medical therapy. 7. Essential hypertension I10 Plan His blood pressure appears to be reasonably well controlled. He will continue medical management. Thank you for allowing me to participate in the care of your patient. Please don't hesitate to call if any issues arise.
--- NOTE | 2020-02-03 08:30 | PCM.PN.REN ---
Patient Problems: Active and Suspected Problems (Last Reviewed 02/01/20 @ 15:[address] Ciro Loyola MD) QAMAR (acute kidney injury) (Acute) Urinary retention (Acute) Subjective: Following for QAMAR on CKD. He denies CP, SOB, nausea. Still with significant LE edema. Poor UOP even with Lasix drip. - Physical Exam Vitals/I&O's: Vital Signs Temp Pulse Resp BP Pulse Ox 97.3 F L 62 18 95/66 98 02/03/20 05:00 02/03/20 07:00 02/03/20 05:00 02/03/20 05:00 02/03/20 07:58 Oxygen Flow Rate (L/min) 2 Oxygen Delivery Method Nasal Cannula Weight: 113.897 kg Body Mass Index (BMI) 47.4 Intake and Output for Last 24 Hours 02/01/20 02/02/20 02/03/20 23:59 23:59 23:59 Intake Total 468.41 / 468.41 443.71 / 443.71 Output Total 0 / 150 550 / 550 30 / 30 Balance 0 / 50 -81.59 / -81.59 413.71 / 413.71 General: Alert, Oriented x3, Cooperative HEENT: Atraumatic, PERRLA Oral: Moist Mucosa Neck: Supple Lungs: Clear to auscultation Cardiovascular: Regular rate, Normal S1, Normal S2 Abdomen: Bowel Sounds Present, Soft, Non Tender, Obese Extremities: Edema - 4+ Laboratory Results 02/02/20 09:46: POC Glucose 150 H 02/02/20 11:54: POC Glucose 170 H 02/02/20 15:47: Urine Creatinine 207.00 02/02/20 15:47: U Random Total Protein 237.1 H, Urine Creatinine 206.00, Protein/Creatinin Ratio 1151 H 02/02/20 15:47: Ur Random Sodium 27 02/02/20 16:46: POC Glucose 142 H 02/02/20 21:20: POC Glucose 131 H 02/03/20 05:48: WBC 9.5, RBC 4.11 L, Hgb 11.1 L, Hct 38.0 L, MCV 92.5, MCH 27.0, MCHC 29.2 L, RDW Std Deviation 57.1 H, RDW Coeff of Aubrey 17.0 H, Plt Count 233, MPV 10.9 02/03/20 05:48: Sodium 136, Potassium 5.6 H, Chloride 105, Carbon Dioxide 26.0, Anion Gap 5, BUN 71 H, Creatinine 5.34 H, Estim Creat Clear Calc 10.47, Est GFR (MDRD) Af Amer 14 L, Est GFR (MDRD) Non-Af 12 L, BUN/Creatinine Ratio 13.3, Glucose 127 H, Calcium 8.4 L, Magnesium 2.3 02/03/20 05:48: Complement C3 Pending, Complement C4 Pending 02/03/20 06:58: POC Glucose 117 H Current Medications Acetaminophen (Tylenol) 650 mg PO Q6H PRN PRN PRN Reason: Pain Score 1-10/Temp > 100.7 F Last Admin: 02/03/20 05:21 Dose: 650 mg Documented by: Al Hydroxide/Mg Hydroxide (Mylanta Ii) 30 ml PO Q6H PRN PRN PRN Reason: Gastric Burning Albuterol Sulfate (Ventolin Aerosols) 2.5 mg INHALATION Q2H PRN PRN PRN Reason: Dyspnea, wheezing Allopurinol (Zyloprim) 300 mg PO DAILY [facility] Last Admin: 02/02/20 10:15 Dose: 300 mg Documented by: Amiodarone HCl (Cordarone) 100 mg PO DAILY [facility] Last Admin: 02/02/20 10:14 Dose: 100 mg Documented by: Aspirin (Aspirin, Baby) 81 mg PO DAILY@0800 [facility] Last Admin: 02/02/20 10:15 Dose: 81 mg Documented by: Atorvastatin Calcium (Lipitor) 10 mg PO QHS [facility] Last Admin: 02/02/20 21:30 Dose: 10 mg Documented by: Colchicine (Colchicine) 0.6 mg PO DAILY [facility] Last Admin: 02/02/20 10:15 Dose: 0.6 mg Documented by: Guaifenesin (Robitussin) 20 ml PO Q4H PRN PRN PRN Reason: COUGH Heparin Sodium (Porcine) (Heparin Na) 5,000 unit SC Q8 [facility] Last Admin: 02/03/20 05:21 Dose: 5,000 unit Documented by: Sodium Chloride () 250 mls @ 15 mls/hr IV .[id number] PRN PRN Reason: Saline Flush Sodium Chloride () 250 mls @ 15 mls/hr IV .[id number] PRN PRN Reason: Additional IVPB Infusion Furosemide 500 mg/ N/A 50 mls @ 1 mls/hr CONT INF .Q50H [facility] Last Admin: 02/03/20 08:13 Dose: 10 mg/hr, 1 mls/hr Documented by: Insulin Human Lispro (Humalog Kwikpen (Bkc)) 0 unit SC ACHS [facility]; Protocol Last Admin: 02/03/20 06:59 Dose: Not Given Documented by: Melatonin (Melatonin) 3 mg PO QHS PRN PRN PRN Reason: INSOMNIA Last Admin: 02/02/20 23:05 Dose: 3 mg Documented by: Metoprolol Tartrate (Lopressor (Beta Fany)) 25 mg PO BID [facility] Last Admin: 02/02/20 21:28 Dose: Not Given Documented by: Morphine Sulfate () 2 mg IV Q3H PRN PRN PRN Reason: Pain Score 6-10/10 Last Admin: 02/02/20 00:54 Dose: 2 mg Documented by: Ondansetron HCl (Zofran) 4 mg IV Q8H PRN PRN PRN Reason: NAUSEA/VOMITING Last Admin: 02/02/20 07:00 Dose: 4 mg Documented by: Oxycodone HCl (Oxyir) 5 mg PO Q4H PRN PRN PRN Reason: Pain Score 4-5/10 Last Admin: 02/03/20 02:57 Dose: 5 mg Documented by: Prochlorperazine Edisylate (Compazine Iv) 5 mg IV Q4H PRN PRN PRN Reason: Breakthrough nausea/vomiting Sodium Chloride () 10 - 40 ml IV UD PRN PRN Reason: SALINE FLUSH Last Admin: 02/01/20 18:05 Dose: 10 ml Documented by: Throat Lozenges (Cepacol Sore Throat Lozenge) 1 lozenge MUCOUS MEM Q2H PRN PRN PRN Reason: SORE THROAT Medical Necessity - Tobacco Use Smoking Status: Former smoker Tobacco Use: Non-smoker Assessment/Plan All Active Problems (Last Reviewed 02/01/20 @ 15:[address] Ciro Loyola MD) Hypoxemia (Acute) Influenza A (Acute) Venous stasis ulcer of right lower extremity (Acute) Venous stasis ulcer of left lower extremity (Acute) QAMAR (acute kidney injury) (Acute) Urinary retention (Acute) Aortocoronary bypass status (Resolved ~02/22/03) Tachycardia (Acute) 1. Acute kidney injury on chronic kidney disease stage 3. Baseline SCr from 11/2019 was 1.67 mg/dL. QAMAR is due to cardiorenal syndrome (FENa is less than 1% despite lasix drip). Possible that prerenal QAMAR from CRS could progress to ischemic ATN as well. No obstruction seen on CT of abdomen this admission. UA showed 2+ protein and many RBC, but I have low suspicion for acute GN at this point. Low suspicion also for other causes of QAMAR such as AIN. Continue with Lasix drip but response has been poor (only 550 mL of UOP in the last 24 hrs). Will add metolazone today since he is still quite volume overloaded. If no response or if SCr continues to increase, he will need dialysis. I made him aware of this possibility today. Current medications are reviewed and are appropriately dosed for the current CrCl. 2. Hyperkalemia. K is mildly increased. Likely due to QAMAR/CKD. Hope he will respond to addition of metolazone. If UOP increases, K should improve. Will also limit K in diet. Will recheck K this afternoon. If K is higher, will give SPS. Recheck K in am. 3. Heart failure with preserved ejection fraction. Pt's situation is also complicated by pulmonary HTN and QAMAR on CKD. Agree with diuresis with Lasix drip. Will add metolazone. I suspect he has KEVIN given his history and body habitus. This may be contributing to HF especially the R sided manifestation. May benefit from sleep study and CPAP if indicated.
[2020-02-03] MEDS: Aspirin 81 MG TAB.CHEW PO (09:22)
[2020-02-03] MEDS: Amiodarone 200 MG Tablet 100 MG PO (09:23)
[2020-02-03] MEDS: Allopurinol 300 MG Tablet PO (10:54)
[2020-02-03 11:25] LABS: Bedside Glucose 126 mg/dL (70-110)
--- NOTE | 2020-02-03 11:39 | PN_ITS ---
<Maureen Fontanez INFORMATION SYSTEMS ADMINISTRATOR - Last Filed: 02/03/20 12:06> Patient Problems: Active and Suspected Problems (Last Reviewed 02/01/20 @ 15:[address] Ciro Loyola MD) QAMAR (acute kidney injury) (Acute) Urinary retention (Acute) Subjective: Patient seen and examined. Nephrology discussed with patient possible need for dialysis if no improvement in renal function. Patient requested this provider update family member, Reggie. Discussed plan of care with family member, no questions or concerns at this time. Patient denies increased shortness of breath or other symptoms or complaints. - Physical Exam Vitals/I&O's: Vital Signs Temp Pulse Resp BP Pulse Ox 97.8 F 58 L 16 94/60 99 02/03/20 09:25 02/03/20 09:25 02/03/20 09:25 02/03/20 09:25 02/03/20 09:25 Oxygen Flow Rate (L/min) 2 Oxygen Delivery Method Nasal Cannula Weight: 251 lb 1.598 oz Body Mass Index (BMI) 47.4 Intake and Output for Last 24 Hours 02/01/20 02/02/20 02/03/20 23:59 23:59 23:59 Intake Total 468.41 / 468.41 443.71 / 443.71 Output Total 0 / 150 550 / 550 30 / 30 Balance 0 / 50 -81.59 / -81.59 413.71 / 413.71 General: Alert, Oriented x3, Cooperative HEENT: Atraumatic, PERRLA, EOMI, Normocephalic Neck: Supple, No JVD, Negative Carotid Bruits Lungs: Clear to auscultation, Diminished Cardiovascular: Regular rate, No murmurs Abdomen: Bowel Sounds Present, Soft, Non Tender, Non-Distended, - - Ascites Extremities: No clubbing, No cyanosis, No edema, Capillary Refill Less than 3 Seconds, - - +3 BLLE Skin: No rashes, No breakdown Musculoskeletal: No Tenderness to Palpation of Joints or Extremities Neurological: Cranial nerves II-XII grossly intact, Neuro grossly intact Psych/Mental Status: Normal Affect, Appropriate Laboratory Results 02/02/20 11:54: POC Glucose 170 H 02/02/20 15:47: Urine Creatinine 207.00 02/02/20 15:47: U Random Total Protein 237.1 H, Urine Creatinine 206.00, Protein/Creatinin Ratio 1151 H 02/02/20 15:47: Ur Random Sodium 27 02/02/20 16:46: POC Glucose 142 H 02/02/20 21:20: POC Glucose 131 H 02/03/20 05:48: WBC 9.5, RBC 4.11 L, Hgb 11.1 L, Hct 38.0 L, MCV 92.5, MCH 27.0, MCHC 29.2 L, RDW Std Deviation 57.1 H, RDW Coeff of Aubrey 17.0 H, Plt Count 233, MPV 10.9 02/03/20 05:48: Sodium 136, Potassium 5.6 H, Chloride 105, Carbon Dioxide 26.0, Anion Gap 5, BUN 71 H, Creatinine 5.34 H, Estim Creat Clear Calc 10.47, Est GFR (MDRD) Af Amer 14 L, Est GFR (MDRD) Non-Af 12 L, BUN/Creatinine Ratio 13.3, Glucose 127 H, Calcium 8.4 L, Magnesium 2.3 02/03/20 05:48: Complement C3 Pending, Complement C4 Pending 02/03/20 06:58: POC Glucose 117 H 02/03/20 11:18: POC Glucose 126 H Current Medications Acetaminophen (Tylenol) 650 mg PO Q6H PRN PRN PRN Reason: Pain Score 1-10/Temp > 100.7 F Last Admin: 02/03/20 05:21 Dose: 650 mg Documented by: Al Hydroxide/Mg Hydroxide (Mylanta Ii) 30 ml PO Q6H PRN PRN PRN Reason: Gastric Burning Albuterol Sulfate (Ventolin Aerosols) 2.5 mg INHALATION Q2H PRN PRN PRN Reason: Dyspnea, wheezing Allopurinol (Zyloprim) 300 mg PO DAILY [facility] Last Admin: 02/03/20 10:54 Dose: 300 mg Documented by: Amiodarone HCl (Cordarone) 100 mg PO DAILY [facility] Last Admin: 02/03/20 09:23 Dose: 100 mg Documented by: Aspirin (Aspirin, Baby) 81 mg PO DAILY@0800 [facility] Last Admin: 02/03/20 09:22 Dose: 81 mg Documented by: Atorvastatin Calcium (Lipitor) 10 mg PO QHS [facility] Last Admin: 09/28/20 21:30 Dose: 10 mg Documented by: Colchicine (Colchicine) 0.6 mg PO DAILY [facility] Last Admin: 02/03/20 10:47 Dose: 0.6 mg Documented by: Guaifenesin (Robitussin) 20 ml PO Q4H PRN PRN PRN Reason: COUGH Heparin Sodium (Porcine) (Heparin Na) 5,000 unit SC Q8 [facility] Last Admin: 02/03/20 05:21 Dose: 5,000 unit Documented by: Sodium Chloride () 250 mls @ 15 mls/hr IV .[id number] PRN PRN Reason: Saline Flush Sodium Chloride () 250 mls @ 15 mls/hr IV .[id number] PRN PRN Reason: Additional IVPB Infusion Furosemide 500 mg/ N/A 50 mls @ 1 mls/hr CONT INF .Q50H [facility] Last Admin: 02/03/20 08:13 Dose: 10 mg/hr, 1 mls/hr Documented by: Insulin Human Lispro (Humalog Kwikpen (Bkc)) [address] [facility]; Protocol Last Admin: 02/03/20 11:22 Dose: Not Given Documented by: Melatonin (Melatonin) 3 mg PO QHS PRN PRN PRN Reason: INSOMNIA Last Admin: 02/02/20 23:05 Dose: 3 mg Documented by: Metoprolol Tartrate (Lopressor (Beta Fany)) 25 mg PO BID [facility] Last Admin: 02/03/20 09:18 Dose: Not Given Documented by: Morphine Sulfate () 2 mg IV Q3H PRN PRN PRN Reason: Pain Score 6-10/10 Last Admin: 02/02/20 00:54 Dose: 2 mg Documented by: Ondansetron HCl (Zofran) 4 mg IV Q8H PRN PRN PRN Reason: NAUSEA/VOMITING Last Admin: 02/02/20 07:00 Dose: 4 mg Documented by: Oxycodone HCl (Oxyir) 5 mg PO Q4H PRN PRN PRN Reason: Pain Score 4-5/10 Last Admin: 02/03/20 10:02 Dose: 5 mg Documented by: Prochlorperazine Edisylate (Compazine Iv) 5 mg IV Q4H PRN PRN PRN Reason: Breakthrough nausea/vomiting Sodium Chloride () 10 - 40 ml IV UD PRN PRN Reason: SALINE FLUSH Last Admin: 02/01/20 18:05 Dose: 10 ml Documented by: Throat Lozenges (Cepacol Sore Throat Lozenge) 1 lozenge MUCOUS MEM Q2H PRN PRN PRN Reason: SORE THROAT Medical Necessity - Tobacco Use Smoking Status: Former smoker Tobacco Use: Non-smoker Assessment/Plan All Active Problems (Last Reviewed 02/01/20 @ 15:[address] Ciro Loyola MD) Hypoxemia (Acute) Influenza A (Acute) Venous stasis ulcer of right lower extremity (Acute) Venous stasis ulcer of left lower extremity (Acute) QAMAR (acute kidney injury) (Acute) Urinary retention (Acute) Aortocoronary bypass status (Resolved ~02/22/03) Tachycardia (Acute) 1. Acute on chronic CHF with preserved ejection fraction/history of ischemic cardiomyopathy-cardiology consulted. On Lasix drip. Echocardiogram June 2019 demonstrates an EF of 55%, pulmonary artery systolic pressure 65 to 70 mmHg consistent with severe pulmonary hypertension. Repeat echocardiogram demonstrates an EF of 55%, stage I diastolic dysfunction, pulmonary artery systolic pressure 55 mmHg. Strict I&O. Daily weight. Amando wraps bilateral lower extremities. Initiated on metolazone x1 by nephrology. Very low urine output. Possible initiation of dialysis as noted below. 2. Acute kidney injury on chronic kidney disease stage III-nephrology consulted. Suspect cardiorenal syndrome. Lee catheter placed by urology. CT of abdomen and pelvis shows nonobstructing bilateral nephrolithiasis, no hydronephrosis. Continue Lasix drip as noted above. Possible initiation of dialysis tomorrow if no improvement. 3. Chronic bilateral lower extremity lymphedema with superficial venous stasis ulcerations, secondary to filariasis-follows at wound center. Continue home snug Amando wraps and elevation. Diuresis as noted above. Wound RN consult. 4. CAD with history of CABG-continue aspirin, statin, metoprolol. 5. Type 2 diabetes mellitus-oral regimen on hold. Accu-Cheks with sliding scale insulin. 6. Pulmonary hypertension-Per echo as noted above. Recommend outpatient sleep study. 7. Hypertension-stable, continue isosorbide, metoprolol with hold parameters. Hold lisinopril, Lasix, spironolactone. 8. Hyperlipidemia-continue statin. 9. Chronic normocytic anemia-stable, trend CBC. 10. Morbid obesity-encouraged diet lifestyle modifications. DVT prophylaxis-heparin subcu This patient was seen by ELAYNE Hallman under the supervision of Dr. Orozco. <Manuel Orozco - Last Filed: 02/03/20 15:00> - Physical Exam Vitals/I&O's: Vital Signs Temp Pulse Resp BP Pulse Ox 36.6 C 58 L 16 94/60 99 02/03/20 09:25 02/03/20 09:25 02/03/20 09:25 02/03/20 09:25 02/03/20 09:25 Oxygen Flow Rate (L/min) 2 Oxygen Delivery Method Nasal Cannula Weight: 113.897 kg Body Mass Index (BMI) 47.4 Intake and Output for Last 24 Hours 02/01/20 02/02/20 02/03/20 23:59 23:59 23:59 Intake Total 468.41 / 468.41 683.71 / 683.71 Output Total 0 / 150 550 / 550 30 / 30 Balance 0 / 50 -81.59 / -81.59 653.71 / 653.71 General: Alert, Cooperative HEENT: Atraumatic, Normocephalic Lungs: Diminished, - - bibasilar crackles Cardiovascular: Regular rate, No murmurs Abdomen: Bowel Sounds Present, Soft, Non Tender, Non-Distended, - Extremities: No clubbing, No cyanosis, No edema, Capillary Refill Less than 3 Seconds, - Skin: No rashes, No breakdown Psych/Mental Status: Normal Affect, Appropriate Laboratory Results 02/02/20 15:47: Urine Creatinine 207.00 02/02/20 15:47: U Random Total Protein 237.1 H, Urine Creatinine 206.00, Protein/Creatinin Ratio 1151 H 02/02/20 15:47: Ur Random Sodium 27 02/02/20 16:46: POC Glucose 142 H 02/02/20 21:20: POC Glucose 131 H 02/03/20 05:48: WBC 9.5, RBC 4.11 L, Hgb 11.1 L, Hct 38.0 L, MCV 92.5, MCH 27.0, MCHC 29.2 L, RDW Std Deviation 57.1 H, RDW Coeff of Aubrey 17.0 H, Plt Count 233, MPV 10.9 02/03/20 05:48: Sodium 136, Potassium 5.6 H, Chloride 105, Carbon Dioxide 26.0, Anion Gap 5, BUN 71 H, Creatinine 5.34 H, Estim Creat Clear Calc 10.47, Est GFR (MDRD) Af Amer 14 L, Est GFR (MDRD) Non-Af 12 L, BUN/Creatinine Ratio 13.3, Glucose 127 H, Calcium 8.4 L, Magnesium 2.3 02/03/20 05:48: Complement C3 Pending, Complement C4 Pending 02/03/20 06:58: POC Glucose 117 H 02/03/20 11:18: POC Glucose 126 H Current Medications Acetaminophen (Tylenol) 650 mg PO Q6H PRN PRN PRN Reason: Pain Score 1-10/Temp > 100.7 F Last Admin: 02/03/20 05:21 Dose: 650 mg Documented by: Al Hydroxide/Mg Hydroxide (Mylanta Ii) 30 ml PO Q6H PRN PRN PRN Reason: Gastric Burning Albuterol Sulfate (Ventolin Aerosols) 2.5 mg INHALATION Q2H PRN PRN PRN Reason: Dyspnea, wheezing Allopurinol (Zyloprim) 300 mg PO DAILY [facility] Last Admin: 02/03/20 10:54 Dose: 300 mg Documented by: Amiodarone HCl (Cordarone) 100 mg PO DAILY [facility] Last Admin: 02/03/20 09:23 Dose: 100 mg Documented by: Aspirin (Aspirin, Baby) 81 mg PO DAILY@0800 [facility] Last Admin: 02/03/20 09:22 Dose: 81 mg Documented by: Atorvastatin Calcium (Lipitor) 10 mg PO QHS [facility] Last Admin: 02/02/20 21:30 Dose: 10 mg Documented by: Colchicine (Colchicine) 0.6 mg PO DAILY [facility] Last Admin: 02/03/20 10:47 Dose: 0.6 mg Documented by: Guaifenesin (Robitussin) 20 ml PO Q4H PRN PRN PRN Reason: COUGH Heparin Sodium (Porcine) (Heparin Na) 5,000 unit SC Q8 [facility] Last Admin: 02/03/20 14:41 Dose: 5,000 unit Documented by: Sodium Chloride () 250 mls @ 15 mls/hr IV .[id number] PRN PRN Reason: Saline Flush Sodium Chloride () 250 mls @ 15 mls/hr IV .[id number] PRN PRN Reason: Additional IVPB Infusion Furosemide 500 mg/ N/A 50 mls @ 1 mls/hr CONT INF .Q50H [facility] Last Admin: 02/03/20 08:13 Dose: 10 mg/hr, 1 mls/hr Documented by: Insulin Human Lispro (Humalog Kwikpen (Bkc)) 0 unit SC ACHS [facility]; Protocol Last Admin: 02/03/20 11:22 Dose: Not Given Documented by: Melatonin (Melatonin) 3 mg PO QHS PRN PRN PRN Reason: INSOMNIA Last Admin: 02/02/20 23:05 Dose: 3 mg Documented by: Metoprolol Tartrate (Lopressor (Beta Fany)) 25 mg PO BID [facility] Last Admin: 02/03/20 09:18 Dose: Not Given Documented by: Morphine Sulfate () 2 mg IV Q3H PRN PRN PRN Reason: Pain Score 6-10/10 Last Admin: 02/02/20 00:54 Dose: 2 mg Documented by: Ondansetron HCl (Zofran) 4 mg IV Q8H PRN PRN PRN Reason: NAUSEA/VOMITING Last Admin: 02/02/20 07:00 Dose: 4 mg Documented by: Oxycodone HCl (Oxyir) 5 mg PO Q4H PRN PRN PRN Reason: Pain Score 4-5/10 Last Admin: 02/03/20 10:02 Dose: 5 mg Documented by: Prochlorperazine Edisylate (Compazine Iv) 5 mg IV Q4H PRN PRN PRN Reason: Breakthrough nausea/vomiting Sodium Chloride () 10 - 40 ml IV UD PRN PRN Reason: SALINE FLUSH Last Admin: 02/01/20 18:05 Dose: 10 ml Documented by: Throat Lozenges (Cepacol Sore Throat Lozenge) 1 lozenge MUCOUS MEM Q2H PRN PRN PRN Reason: SORE THROAT Assessment/Plan Patient seen and examined independently. Data reviewed. I agree with the above note by the nurse practitioner. 1. Acute heart failure with preserved ejection fraction: Minimal improvement with furosemide. Complicated by severe pulmonary hypertension. 2. Acute kidney injury on chronic kidney disease stage III: Worsening. Discussed with Dr. Cody, likely require dialysis but will hold off until tomorrow. Inpatient E&M: 22489 Subs Hosp L2
[2020-02-03 16:11] LABS: Anion Gap 5 (5-15); BUN 72 mg/dL (7-18); BUN/Creat Ratio 12.5 RATIO (10-20); Calcium,Total 8.8 mg/dL (8.5-10.1); Chloride 106 mmol/L (98-107); Creatinine, Serum 5.75 mg/dL (0.70-1.30); EST Glomerular Filtration Rate 11 mL/min (>60); Est Glom Filt Rate - Afr Amer 13 mL/min (>60); Estimated Creatinine Clearance 9.73 ml/min; Glucose 128 mg/dL (74-106); Potassium 5.4 mmol/L (3.5-5.1); Sodium Level 136 mmol/L (136-145)
[2020-02-03 17:10] LABS: Bedside Glucose 120 mg/dL (70-110)
[2020-02-03] MEDS: Metoprolol Tartrate 25 MG Tablet PO (22:04)
[2020-02-03] MEDS: Atorvastatin Calcium 10 MG Tablet PO (22:04)
[2020-02-03 22:51] LABS: Bedside Glucose 136 mg/dL (70-110)
[2020-02-04] VITALS (11 sets, daily range): BP systolic 92–116; BP diastolic 42–54; PULSE 62–74; RESP 15–20; TEMP 36.7–37.2; O2SAT 94–99
[2020-02-04] MEDS: oxyCODONE 5 MG Tablet PO ×3 (01:02→22:53)
--- NOTE | 2020-02-04 05:55 | EKG12_ITS ---
Test Reason : AM EKG Blood Pressure : / mmHG Vent. Rate : 063 BPM Atrial Rate : 063 BPM P-R Int : 216 ms QRS Dur : 114 ms QT Int : 428 ms P-R-T Axes : 042 -06 165 degrees QTc Int : 437 ms Sinus rhythm with 1st degree A-V block T wave abnormality, consider inferior ischemia Abnormal ECG When compared with ECG of 02-FEB-2020 05:44, No significant change was found Confirmed by JOSE ANTONIO NAYAK, LAURA ([id number]), scientific editor JAY GE ([id number]) on 02/10/2020 9:17:13 AM Referred By: MARTIN Confirmed By:GRICEL BRADY MD
[2020-02-04 06:35] LABS: Hematocrit 36.4 % (40-54); Hemoglobin 10.7 g/dL (13.0-16.5); Mean Corp Hgb Conc 29.4 g/dL (32-36); Mean Corpuscular Hgb 26.8 pg (27.0-32.0); Mean Platelet Vol. 11.8 fl (6.2-12.0); Platelet Count 237 K/mm3 (150-450); RBC Distribution Width CV 16.6 % (11.6-14.6); RBC Distribution Width SD 55.4 fl (35.1-43.9); White Blood Count 7.9 K/mm3 (4.4-11.0)
[2020-02-04 06:44] LABS: International Normalized Ratio 1.3; Prothrombin Time (Protime)PT. 15.6 SECONDS (11.7-14.9)
[2020-02-04 06:45] LABS: Partial Thromboplast Time 38.8 Seconds (24.1-36.2)
[2020-02-04 07:00] LABS: Bedside Glucose 109 mg/dL (70-110)
[2020-02-04 07:52] LABS: Albumin, Serum 3.1 g/dL (3.2-5.0); BUN 78 mg/dL (7-18); BUN/Creat Ratio 13.2 RATIO (10-20); Calcium,Total 8.4 mg/dL (8.5-10.1); Chloride 105 mmol/L (98-107); Creatinine, Serum 5.91 mg/dL (0.70-1.30); EST Glomerular Filtration Rate 10 mL/min (>60); Est Glom Filt Rate - Afr Amer 13 mL/min (>60); Estimated Creatinine Clearance 9.46 ml/min; Glucose 119 mg/dL (74-106); Phosphorus 7.1 mg/dL (2.5-4.9); Potassium 5.3 mmol/L (3.5-5.1); Sodium Level 137 mmol/L (136-145)
[2020-02-04 09:35] LABS: Complement C3 130 mg/dL (82-167)
[2020-02-04] MEDS: Amiodarone 200 MG Tablet 100 MG PO (10:33)
[2020-02-04] MEDS: Allopurinol 300 MG Tablet PO (10:33)
[2020-02-04] MEDS: Aspirin 81 MG TAB.CHEW PO (10:33)
--- NOTE | 2020-02-04 11:23 | CASEMGMT ---
Per Dr. Cody, pt will need set up for OP HD at this time for QAMAR and pt prefers [facility] at this time and states it's not far from his home. Referral placed in [facility] portal and clinicals faxed to [facility] and [facility] at this time. Call to Amado at [facility] to update on referral, voices understanding. Dorothea GALLARDO CM
--- NOTE | 2020-02-04 11:43 | PN.RENAL_ITS ---
Patient Problems: Active and Suspected Problems (Last Reviewed 02/01/20 @ 15:[address] Ciro Loyola MD) QAMAR (acute kidney injury) (Acute) Urinary retention (Acute) Subjective: Following for QAMAR on CKD. No increase in UOP (in fact, UOP decreased) despite adding metolazone. He denies CP or nausea but has SOB and anasarca. - Physical Exam Vitals/I&O's: Vital Signs Temp Pulse Resp BP Pulse Ox 98.1 F 62 16 92/42 L 97 02/04/20 10:00 02/04/20 10:58 02/04/20 10:00 02/04/20 10:58 02/04/20 10:00 Oxygen Flow Rate (L/min) 2 Oxygen Delivery Method Nasal Cannula Weight: 113.897 kg Body Mass Index (BMI) 47.4 Intake and Output for Last 24 Hours 02/02/20 02/03/20 02/04/20 23:59 23:59 23:59 Intake Total 468.41 / 468.41 953.71 / 953.71 Output Total 550 / 550 240 / 240 100 / 100 Balance -81.59 / -81.59 713.71 / 713.71 -100 / -100 General: Alert, Oriented x3, Cooperative HEENT: Atraumatic Oral: Moist Mucosa Neck: Supple Lungs: Diminished - at bases Cardiovascular: Normal S1, Normal S2, No murmurs Abdomen: Bowel Sounds Present, Soft, Non Tender, Obese Extremities: Edema - 4+ Laboratory Results 02/03/20 05:48: Complement C3 130, Complement C4 30 02/03/20 15:20: Sodium 136, Potassium 5.4 H, Chloride 106, Carbon Dioxide 25.0, Anion Gap 5, BUN 72 H, Creatinine 5.75 H, Estim Creat Clear Calc 9.73, Est GFR (MDRD) Af Amer 13 L, Est GFR (MDRD) Non-Af 11 L, BUN/Creatinine Ratio 12.5, Glucose 128 H, Calcium 8.8 02/03/20 17:07: POC Glucose 120 H 02/03/20 22:06: POC Glucose 136 H 02/04/20 06:30: WBC 7.9, RBC 4.00 L, Hgb 10.7 L, Hct 36.4 L, MCV 91.0, MCH 26.8 L, MCHC 29.4 L, RDW Std Deviation 55.4 H, RDW Coeff of Aubrey 16.6 H, Plt Count 237, MPV 11.8 02/04/20 06:30: PT 15.6 H, INR 1.3, APTT 38.8 H 02/04/20 06:30: Sodium Cancelled, Potassium Cancelled, Chloride Cancelled, Carbon Dioxide Cancelled, BUN Cancelled, Creatinine Cancelled, Estim Creat Clear Calc Cancelled, Est GFR (MDRD) Af Amer Cancelled, Est GFR (MDRD) Non-Af Cancelled, BUN/Creatinine Ratio Cancelled, Glucose Cancelled, Calcium Cancelled, Phosphorus Cancelled, Albumin Cancelled 02/04/20 06:41: POC Glucose 109 02/04/20 07:30: Sodium 137, Potassium 5.3 H, Chloride 105, Carbon Dioxide 27.0, BUN 78 H, Creatinine 5.91 H, Estim Creat Clear Calc 9.46, Est GFR (MDRD) Af Amer 13 L, Est GFR (MDRD) Non-Af 10 L, BUN/Creatinine Ratio 13.2, Glucose 119 H, Calcium 8.4 L, Phosphorus 7.1 H, Albumin 3.1 L Current Medications Acetaminophen (Tylenol) 650 mg PO Q6H PRN PRN PRN Reason: Pain Score 1-10/Temp > 100.7 F Last Admin: 02/03/20 05:21 Dose: 650 mg Documented by: Al Hydroxide/Mg Hydroxide (Mylanta Ii) 30 ml PO Q6H PRN PRN PRN Reason: Gastric Burning Albuterol Sulfate (Ventolin Aerosols) 2.5 mg INHALATION Q2H PRN PRN PRN Reason: Dyspnea, wheezing Allopurinol (Zyloprim) 300 mg PO DAILY [facility] Last Admin: 02/04/20 10:33 Dose: 300 mg Documented by: Amiodarone HCl (Cordarone) 100 mg PO DAILY [facility] Last Admin: 02/04/20 10:33 Dose: 100 mg Documented by: Aspirin (Aspirin, Baby) 81 mg PO DAILY@0800 [facility] Last Admin: 02/04/20 10:33 Dose: 81 mg Documented by: Atorvastatin Calcium (Lipitor) 10 mg PO QHS [facility] Last Admin: 02/03/20 22:04 Dose: 10 mg Documented by: Colchicine (Colchicine) 0.6 mg PO DAILY [facility] Last Admin: 02/04/20 10:33 Dose: 0.6 mg Documented by: Guaifenesin (Robitussin) 20 ml PO Q4H PRN PRN PRN Reason: COUGH Heparin Sodium (Porcine) (Heparin Na) 5,000 unit SC Q8 [facility] Last Admin: 02/04/20 05:14 Dose: Not Given Documented by: Sodium Chloride () 250 mls @ 15 mls/hr IV .[id number] PRN PRN Reason: Saline Flush Sodium Chloride () 250 mls @ 15 mls/hr IV .[id number] PRN PRN Reason: Additional IVPB Infusion Furosemide 500 mg/ N/A 50 mls @ 1 mls/hr CONT INF .Q50H [facility] Last Admin: 02/03/20 08:13 Dose: 10 mg/hr, 1 mls/hr Documented by: Insulin Human Lispro (Humalog Kwikpen (Bkc)) 0 unit SC ACHS [facility]; Protocol Last Admin: 02/04/20 06:38 Dose: Not Given Documented by: Melatonin (Melatonin) 3 mg PO QHS PRN PRN PRN Reason: INSOMNIA Last Admin: 02/02/20 23:05 Dose: 3 mg Documented by: Metoprolol Tartrate (Lopressor (Beta Fany)) 25 mg PO BID [facility] Last Admin: 02/04/20 10:58 Dose: Not Given Documented by: Morphine Sulfate () 2 mg IV Q3H PRN PRN PRN Reason: Pain Score 6-10/10 Last Admin: 02/02/20 00:54 Dose: 2 mg Documented by: Ondansetron HCl (Zofran) 4 mg IV Q8H PRN PRN PRN Reason: NAUSEA/VOMITING Last Admin: 02/02/20 07:00 Dose: 4 mg Documented by: Oxycodone HCl (Oxyir) 5 mg PO Q4H PRN PRN PRN Reason: Pain Score 4-5/10 Last Admin: 02/04/20 06:41 Dose: 5 mg Documented by: Prochlorperazine Edisylate (Compazine Iv) 5 mg IV Q4H PRN PRN PRN Reason: Breakthrough nausea/vomiting Sodium Chloride () 10 - 40 ml IV UD PRN PRN Reason: SALINE FLUSH Last Admin: 02/01/20 18:05 Dose: 10 ml Documented by: Throat Lozenges (Cepacol Sore Throat Lozenge) 1 lozenge MUCOUS MEM Q2H PRN PRN PRN Reason: SORE THROAT Medical Necessity - Tobacco Use Smoking Status: Former smoker Tobacco Use: Non-smoker Assessment/Plan All Active Problems (Last Reviewed 02/01/20 @ 15:[address] Ciro Loyola MD) Hypoxemia (Acute) Influenza A (Acute) Venous stasis ulcer of right lower extremity (Acute) Venous stasis ulcer of left lower extremity (Acute) QAMAR (acute kidney injury) (Acute) Urinary retention (Acute) Aortocoronary bypass status (Resolved ~02/22/03) Tachycardia (Acute) 1. Acute kidney injury on chronic kidney disease stage 3. Baseline SCr from 11/2019 was 1.67 mg/dL. QAMAR is due to cardiorenal syndrome (FENa is less than 1% despite Lasix drip). Possible that prerenal QAMAR from CRS could progress to ischemic ATN as well. No obstruction seen on CT of abdomen this admission. UA showed 2+ protein and many RBC, but I have low suspicion for acute GN at this point. Low suspicion also for other causes of QAMAR such as AIN. Continue with Lasix drip but response has been poor (only 240 mL of UOP in the last 24 hrs) despite metolazone yesterday. Will add metolazone today since he is still quite volume overloaded. Will proceed with dialysis. Will consult surgery for TDC. Will continue Lasix drip until we can start HD. 2. Hyperkalemia. K is mildly increased. No need for SPS. Hyperkalemia is likely due to QAMAR/CKD. Continue to limit K in diet. Will dialyze once TDC is placed. 3. Heart failure with preserved ejection fraction. Pt's situation is also complicated by pulmonary HTN and QAMAR on CKD. Not responding to Lasix drip and metolazone. Unlikely to get more response from increasing dose of Lasix and he is already hypotensive. Will dialyze once TDC is placed. May need midodrine prior to dialysis to maximize fluid removal. I suspect he also has KEVIN given his history and body habitus. This may be contributing to HF especially the R sided manifestation. May benefit from sleep study and CPAP if indicated.
--- NOTE | 2020-02-04 11:55 | NURSING ---
Report recieved from Angelina GALLARDO. This RN taking over care of pt at this time.
[2020-02-04 13:06] LABS: Bedside Glucose 137 mg/dL (70-110)
--- NOTE | 2020-02-04 13:38 | PN_ITS ---
Patient Problems: Active and Suspected Problems (Last Reviewed 02/01/20 @ 15:[address] Ciro Loyola MD) QAMAR (acute kidney injury) (Acute) Urinary retention (Acute) Reason for Visit: QAMAR Subjective: Breathing well. Frequent BMs. Vitals/I&O's: Vital Signs Temp Pulse Resp BP Pulse Ox 36.7 C 62 16 92/42 L 97 02/04/20 10:00 02/04/20 10:58 02/04/20 10:00 02/04/20 10:58 02/04/20 10:00 Oxygen Flow Rate (L/min) 2 Oxygen Delivery Method Nasal Cannula Weight: 113.897 kg Body Mass Index (BMI) 47.4 Intake and Output for Last 24 Hours 02/02/20 02/03/20 02/04/20 23:59 23:59 23:59 Intake Total 468.41 / 468.41 953.71 / 953.71 Output Total 550 / 550 240 / 240 100 / 100 Balance -81.59 / -81.59 713.71 / 713.71 -100 / -100 General: Alert, No apparent distress HEENT: Atraumatic, Normocephalic Oral: Moist Mucosa, No Gingival or Mucosal Lesions/ Ulcerations Neck: No Nodes, Thyroid Normal Size and Texture Lungs: Clear to auscultation, Normal air movement, No rhonchi, No wheeze Cardiovascular: Regular rate, Regular Rhythm, Normal S1, Normal S2, No murmurs Abdomen: Bowel Sounds Present, Soft, Non Tender, Non-Distended, No Hepato- splenomegaly Extremities: No edema, No Calf Tenderness Skin: No rashes, No breakdown Laboratory Results 02/03/20 05:48: Complement C3 130, Complement C4 30 02/03/20 15:20: Sodium 136, Potassium 5.4 H, Chloride 106, Carbon Dioxide 25.0, Anion Gap 5, BUN 72 H, Creatinine 5.75 H, Estim Creat Clear Calc 9.73, Est GFR (MDRD) Af Amer 13 L, Est GFR (MDRD) Non-Af 11 L, BUN/Creatinine Ratio 12.5, Glucose 128 H, Calcium 8.8 02/03/20 17:07: POC Glucose 120 H 02/03/20 22:06: POC Glucose 136 H 02/04/20 06:30: WBC 7.9, RBC 4.00 L, Hgb 10.7 L, Hct 36.4 L, MCV 91.0, MCH 26.8 L, MCHC 29.4 L, RDW Std Deviation 55.4 H, RDW Coeff of Aubrey 16.6 H, Plt Count 237, MPV 11.8 02/04/20 06:30: PT 15.6 H, INR 1.3, APTT 38.8 H 02/04/20 06:30: Sodium Cancelled, Potassium Cancelled, Chloride Cancelled, Carbon Dioxide Cancelled, BUN Cancelled, Creatinine Cancelled, Estim Creat Clear Calc Cancelled, Est GFR (MDRD) Af Amer Cancelled, Est GFR (MDRD) Non-Af Cancelled, BUN/Creatinine Ratio Cancelled, Glucose Cancelled, Calcium Cancelled, Phosphorus Cancelled, Albumin Cancelled 02/04/20 06:41: POC Glucose 109 02/04/20 07:30: Sodium 137, Potassium 5.3 H, Chloride 105, Carbon Dioxide 27.0, BUN 78 H, Creatinine 5.91 H, Estim Creat Clear Calc 9.46, Est GFR (MDRD) Af Amer 13 L, Est GFR (MDRD) Non-Af 10 L, BUN/Creatinine Ratio 13.2, Glucose 119 H, Calcium 8.4 L, Phosphorus 7.1 H, Albumin 3.1 L 02/04/20 12:56: POC Glucose 137 H Current Medications Acetaminophen (Tylenol) 650 mg PO Q6H PRN PRN PRN Reason: Pain Score 1-10/Temp > 100.7 F Last Admin: 02/03/20 05:21 Dose: 650 mg Documented by: Al Hydroxide/Mg Hydroxide (Mylanta Ii) 30 ml PO Q6H PRN PRN PRN Reason: Gastric Burning Albuterol Sulfate (Ventolin Aerosols) 2.5 mg INHALATION Q2H PRN PRN PRN Reason: Dyspnea, wheezing Allopurinol (Zyloprim) 300 mg PO DAILY [facility] Last Admin: 02/04/20 10:33 Dose: 300 mg Documented by: Amiodarone HCl (Cordarone) 100 mg PO DAILY [facility] Last Admin: 02/04/20 10:33 Dose: 100 mg Documented by: Aspirin (Aspirin, Baby) 81 mg PO DAILY@0800 [facility] Last Admin: 02/04/20 10:33 Dose: 81 mg Documented by: Atorvastatin Calcium (Lipitor) 10 mg PO QHS [facility] Last Admin: 02/03/20 22:04 Dose: 10 mg Documented by: Colchicine (Colchicine) 0.6 mg PO DAILY [facility] Last Admin: 02/04/20 10:33 Dose: 0.6 mg Documented by: Guaifenesin (Robitussin) 20 ml PO Q4H PRN PRN PRN Reason: COUGH Heparin Sodium (Porcine) (Heparin Na) 5,000 unit SC Q8 [facility] Last Admin: 02/04/20 05:14 Dose: Not Given Documented by: Sodium Chloride () 250 mls @ 15 mls/hr IV .[id number] PRN PRN Reason: Saline Flush Sodium Chloride () 250 mls @ 15 mls/hr IV .[id number] PRN PRN Reason: Additional IVPB Infusion Furosemide 500 mg/ N/A 50 mls @ 1 mls/hr CONT INF .Q50H [facility] Last Admin: 02/03/20 08:13 Dose: 10 mg/hr, 1 mls/hr Documented by: Insulin Human Lispro (Humalog Kwikpen (Bkc)) 0 unit SC ACHS [facility]; Protocol Last Admin: 02/04/20 12:58 Dose: Not Given Documented by: Melatonin (Melatonin) 3 mg PO QHS PRN PRN PRN Reason: INSOMNIA Last Admin: 02/02/20 23:05 Dose: 3 mg Documented by: Metoprolol Tartrate (Lopressor (Beta Fany)) 25 mg PO BID [facility] Last Admin: 02/04/20 10:58 Dose: Not Given Documented by: Morphine Sulfate () 2 mg IV Q3H PRN PRN PRN Reason: Pain Score 6-10/10 Last Admin: 02/02/20 00:54 Dose: 2 mg Documented by: Ondansetron HCl (Zofran) 4 mg IV Q8H PRN PRN PRN Reason: NAUSEA/VOMITING Last Admin: 02/02/20 07:00 Dose: 4 mg Documented by: Oxycodone HCl (Oxyir) 5 mg PO Q4H PRN PRN PRN Reason: Pain Score 4-5/10 Last Admin: 02/04/20 06:41 Dose: 5 mg Documented by: Prochlorperazine Edisylate (Compazine Iv) 5 mg IV Q4H PRN PRN PRN Reason: Breakthrough nausea/vomiting Sodium Chloride () 10 - 40 ml IV UD PRN PRN Reason: SALINE FLUSH Last Admin: 02/01/20 18:05 Dose: 10 ml Documented by: Throat Lozenges (Cepacol Sore Throat Lozenge) 1 lozenge MUCOUS MEM Q2H PRN PRN PRN Reason: SORE THROAT STROKE Vital Signs/Narrative: Vital Signs Temp Pulse Resp BP Pulse Ox 02/04/20 10:58 62 92/42 L 02/04/20 10:00 36.7 C 62 16 92/42 L 97 Medical Necessity - Tobacco Use Smoking Status: Former smoker Tobacco Use: Non-smoker Assessment/Plan All Active Problems (Last Reviewed 02/01/20 @ 15:[address] Ciro Loyola MD) Hypoxemia (Acute) Influenza A (Acute) Venous stasis ulcer of right lower extremity (Acute) Venous stasis ulcer of left lower extremity (Acute) QAMAR (acute kidney injury) (Acute) Urinary retention (Acute) Aortocoronary bypass status (Resolved ~02/22/03) Tachycardia (Acute) 1. Acute heart failure with preserved ejection fraction: * Minimal improvement with furosemide gtt. * Complicated by severe pulmonary hypertension. 2. Acute kidney injury on chronic kidney disease stage III: * Worsening. oliguric * DW Dr. Cody, plan for HD. 3. DM2 * fair control * metformin held given QAMAR * on SSI 4. VTE prophylaxis: SQ heparin Inpatient E&M: [id number] Subs Hosp L2
[2020-02-04 17:36] LABS: Bedside Glucose 114 mg/dL (70-110)
[2020-02-04] MEDS: Furosemide 500 MG in Empty Viaflex 50 mL 1 EACH CONT INF (18:50)
[2020-02-04] MEDS: Acetaminophen 325 MG Tablet 650 MG PO (18:51)
[2020-02-04] MEDS: Metoprolol Tartrate 25 MG Tablet PO (22:54)
[2020-02-04] MEDS: Atorvastatin Calcium 10 MG Tablet PO (22:54)
[2020-02-04 23:50] LABS: Bedside Glucose 112 mg/dL (70-110)
[2020-02-05] VITALS (21 sets, daily range): BP systolic 99–117; BP diastolic 44–68; PULSE 66–85; RESP 16–20; TEMP 36.7–36.9; O2SAT 97–100; BMI 47.4
--- NOTE | 2020-02-05 00:55 | NURSING ---
Verbal report given to Tierra Vasquez RN. She will resume care of patient at this time.
[2020-02-05 03:19] LABS: Probe Check PASS; Specimen Processing Control PASS
[2020-02-05] MEDS: Morphine 2 MG/ML Syringe IV ×2 (05:52→16:45)
[2020-02-05 06:08] LABS: Absolute Lymphocyte Count 1.13 X10^3/uL (0.83-4.51); Absolute Neutrophil Count 4.5 X10^3/uL (2.0-7.7); Basophil# 0.04 X10^3/uL; Basophil% 0.6 % (0-1); Eosinophil# 0.41 X10^3/uL; Eosinophils% 6.1 % (0-5); Hematocrit 34.7 % (40-54); Hemoglobin 10.6 g/dL (13.0-16.5); Lymphocyte # 1.13 X10^3/ul (4.0); Lymphocyte % 16.7 % (19-41); Mean Corp Hgb Conc 30.5 g/dL (32-36); Mean Corpuscular Hgb 27.5 pg (27.0-32.0); Mean Corpuscular Volume 90.1 fL (80-94); Monocyte# 0.63 X10^3/uL; Monocyte% 9.3 % (0-10); NRBC Flagged by Analyzer 0 % (0-5); Neutrophil # 4.51 X10^3/uL (2.7-7.7); Neutrophil % 66.6 % (47-70); Platelet Count 226 K/mm3 (150-450); RBC Distribution Width CV 16.3 % (11.6-14.6); RBC Distribution Width SD 54.2 fl (35.1-43.9); Red Blood Count 3.85 M/mm3 (4.6-6.2); White Blood Count 6.8 K/mm3 (4.4-11.0)
[2020-02-05 06:28] LABS: Partial Thromboplast Time 38.1 Seconds (24.1-36.2)
--- NOTE | 2020-02-05 06:36 | CON.PCM_ITS ---
Problem List (1) QAMAR (acute kidney injury) Status: Acute Reason for Consult Date of Consultation: 02/05/20 Reason for Consultation: Dialysis catheter placement History of Present Illness: The patient is a 64 year old M here with acute renal failure. The patient is oliguric and creatinine is rising. He is recommended to have dialysis. Past Medical History Past Medical History (Chronic Problems): Chronic Problems (Last Reviewed 02/01/20 @ 15:[address] 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) Essential hypertension (Chronic) Pure hypercholesterolemia (Chronic) Atherosclerosis of coronary artery bypass graft without angina pectoris (Chronic) CABG x6 ; Internal Mammary to Anterior Descending, SVG to diag branch of the Anterior descending,SVG to the lateral & posteriorlateral CX, SVG to Posterior Descending and continuation branches of the RCA 02/27/03 Chronic systolic congestive heart failure (Chronic) Ischemic cardiomyopathy (Chronic) Pulmonary hypertension (Chronic) Presence of cardiac defibrillator (Chronic ~08/2004) Old myocardial infarction (Chronic) Medical History: Medical History (Last Reviewed 02/01/20 @ 15:[address] Ciro Loyola MD) Essential hypertension (Chronic) I10 Pure hypercholesterolemia (Chronic) E78.00 Atherosclerosis of coronary artery bypass graft without angina pectoris (Chronic) I25.810 CABG x6 ; Internal Mammary to Anterior Descending, SVG to diag branch of the Anterior descending,SVG to the lateral & posteriorlateral CX, SVG to Posterior Descending and continuation branches of the RCA 02/27/03 Chronic systolic congestive heart failure (Chronic) I50.22 Ischemic cardiomyopathy (Chronic) I25.5 Pulmonary hypertension (Chronic) I27.20 Presence of cardiac defibrillator (Chronic) Onset Date: ~08/2004 Z95.810 Tachycardia (Acute) R00.0 Long-term use of high-risk medication (Inactive) Z79.899 Old myocardial infarction (Chronic) I25.2 Angina decubitus I20.8 Edema R60.9 Family history of hypertension Z82.49 Fatty liver K76.0 Type 2 diabetes mellitus E11.9 Abnormal stress test (Inactive) R94.39 Allergies No Known Allergies Allergy (Verified 02/01/20 11:51) Home Medications: Ambulatory Orders Medication Instructions Recorded Aspirin [Aspirin, Baby] 81 mg PO DAILY@0800 03/10/14 colchicine 0.6 mg capsule 0.6 mg PO DAILY cap 05/22/17 Magnesium Oxide [Mag-Ox 400] 400 mg PO BID 06/03/19 Allopurinol [Zyloprim] 300 mg PO DAILY 06/26/19 Amiodarone HCl 100 mg PO DAILY 06/26/19 Isosorbide Mononitrate [Isosorbide 30 mg PO QAM 06/26/19 Mononitrate ER] Lisinopril 20 mg PO BID 06/26/19 Simvastatin 20 mg PO QHS 06/26/19 Metformin HCl 1,000 mg PO BID 11/27/19 albuterol sulfate 90 mcg/actuation 2 puff INHALATION Q4H PRN #18 g 12/04/19 aerosol inhaler Pulse Oximeter #1 ea 12/29/19 furosemide 40 mg tablet 40 mg PO BID tab 12/29/19 Amox/Clavulanate Tablet [Augmentin 1 tab PO BID 02/01/20 Tablet] Metoprolol Tartrate [Lopressor 100 mg PO BID 02/01/20 (beta fany)] Nabumetone 500 mg PO DAILY 02/01/20 Surgical History: Surgical History (Last Reviewed 02/04/20 @ 23:14 by Anna Rico) Aortocoronary bypass status (Resolved) Onset Date: ~02/22/03 Z95.1 CABG x6 ; Internal Mammary to Anterior Descending, SVG to diag branch of the Anterior descending,SVG to the lateral & posteriorlateral CX, SVG to Posterior Descending and continuation branches of the RCA 02/27/03 Surgical History: coronary bypass surgery, - - AICD placement in addition to CABG x6. Psychiatric History: No pertinent psych hx Lives: With Family - Patient notes currently he lives with his mother as well as a sister and her . Smoking Status: Former smoker Tobacco Use: Non-smoker Alcohol: Occasional Drugs: None - *Family History Paternal Family History: Family History (Last Reviewed 12/29/19 @ 12:18 by Maureen Dove) Mother Hypertension Sister Hypertension History Items: Hypertension Sibling Family History: Family History (Last Reviewed 12/29/19 @ 12:18 by Maureen Dove) Mother Hypertension Sister Hypertension History Items: Hypertension Maternal Family History: Family History (Last Reviewed 12/29/19 @ 12:18 by Maureen Dove) Mother Hypertension Sister Hypertension History Items: Hypertension Review of Systems Constitutional: Denies: Anorexia, Chills HEENT: Denies: Difficulty Swallowing Cardiovascular: Denies: Chest Pain Respiratory: Denies: Cough Gastrointestinal: Denies: Abdominal Pain, Nausea, Vomiting Musculoskeletal: Denies: Joint Tenderness Hematologic/ Lymphatic: Denies: Anemia Patient Problems: Active and Suspected Problems (Last Reviewed 02/01/20 @ 15:[address] Ciro Loyola MD) QAMAR (acute kidney injury) (Acute) Urinary retention (Acute) - Physical Exam Vitals/I&O's: Vital Signs Temp Pulse Resp BP Pulse Ox 98.4 F 71 16 103/57 L 98 02/05/20 04:39 02/05/20 04:39 02/05/20 04:39 02/05/20 04:39 02/05/20 04:39 Oxygen Flow Rate (L/min) 2 Oxygen Delivery Method Nasal Cannula Weight: 251 lb 1.598 oz Body Mass Index (BMI) 47.4 Intake and Output for Last 24 Hours 02/03/20 02/04/20 02/05/20 23:59 23:59 23:59 Intake Total 953.71 / 953.71 424.62 / 424.62 Output Total 240 / 240 1075 / 1075 650 / 650 Balance 713.71 / 713.71 -650.38 / -650.38 -650 / -650 General: Alert, Oriented x3 Neck: No JVD Lungs: Normal air movement Cardiovascular: Regular rate, Regular Rhythm Abdomen: Soft, Non Tender, Non-Distended Laboratory Results 02/03/20 05:48: Complement C3 130, Complement C4 30 02/04/20 06:30: WBC 7.9, RBC 4.00 L, Hgb 10.7 L, Hct 36.4 L, MCV 91.0, MCH 26.8 L, MCHC 29.4 L, RDW Std Deviation 55.4 H, RDW Coeff of Aubrey 16.6 H, Plt Count 237, MPV 11.8 02/04/20 06:30: PT 15.6 H, INR 1.3, APTT 38.8 H 02/04/20 06:30: Sodium Cancelled, Potassium Cancelled, Chloride Cancelled, Carbon Dioxide Cancelled, BUN Cancelled, Creatinine Cancelled, Estim Creat Clear Calc Cancelled, Est GFR (MDRD) Af Amer Cancelled, Est GFR (MDRD) Non-Af Cancelled, BUN/Creatinine Ratio Cancelled, Glucose Cancelled, Calcium Cancelled, Phosphorus Cancelled, Albumin Cancelled 02/04/20 06:41: POC Glucose 109 02/04/20 07:30: Sodium 137, Potassium 5.3 H, Chloride 105, Carbon Dioxide 27.0, BUN 78 H, Creatinine 5.91 H, Estim Creat Clear Calc 9.46, Est GFR (MDRD) Af Amer 13 L, Est GFR (MDRD) Non-Af 10 L, BUN/Creatinine Ratio 13.2, Glucose 119 H, Calcium 8.4 L, Phosphorus 7.1 H, Albumin 3.1 L 02/04/20 12:56: POC Glucose 137 H 02/04/20 16:42: POC Glucose 114 H 02/04/20 22:50: POC Glucose 112 H 02/05/20 01:05: COVID-19 ([facility]USA) Not Detected 02/05/20 06:00: Sodium Pending, Potassium Pending, Chloride Pending, Carbon Dioxide Pending, BUN Pending, Creatinine Pending, Est GFR (MDRD) Af Amer Pending, Est GFR (MDRD) Non-Af Pending, BUN/Creatinine Ratio Pending, Glucose Pending, Calcium Pending, Phosphorus Pending, Albumin Pending 02/05/20 06:00: WBC 6.8, RBC 3.85 L, Hgb 10.6 L, Hct 34.7 L, MCV 90.1, MCH 27.5, MCHC 30.5 L, RDW Std Deviation 54.2 H, RDW Coeff of Aubrey 16.3 H, Plt Count 226, MPV 12.0, Immature Gran % (Auto) 0.700, Neut % (Auto) 66.6, Lymph % (Auto) 16.7 L, Wetzel % (Auto) 9.3, Eos % (Auto) 6.1 H, Baso % (Auto) 0.6, Absolute Neuts (auto) 4.5, Absolute Lymphs (auto) 1.13, Nucleated RBC % 0 02/05/20 06:00: APTT 38.1 H 02/05/20 06:00: Hemoglobin A1c Pending Current Medications Acetaminophen (Tylenol) 650 mg PO Q6H PRN PRN PRN Reason: Pain Score 1-10/Temp > 100.7 F Last Admin: 02/04/20 18:51 Dose: 650 mg Documented by: Al Hydroxide/Mg Hydroxide (Mylanta Ii) 30 ml PO Q6H PRN PRN PRN Reason: Gastric Burning Albuterol Sulfate (Ventolin Aerosols) 2.5 mg INHALATION Q2H PRN PRN PRN Reason: Dyspnea, wheezing Allopurinol (Zyloprim) 300 mg PO DAILY [facility] Last Admin: 02/04/20 10:33 Dose: 300 mg Documented by: Amiodarone HCl (Cordarone) 100 mg PO DAILY [facility] Last Admin: 02/04/20 10:33 Dose: 100 mg Documented by: Aspirin (Aspirin, Baby) 81 mg PO DAILY@0800 [facility] Last Admin: 02/04/20 10:33 Dose: 81 mg Documented by: Atorvastatin Calcium (Lipitor) 10 mg PO QHS [facility] Last Admin: 02/04/20 22:54 Dose: 10 mg Documented by: Calamine/Phenol (Calmoseptine Ointment) 1 applic TOPICAL TID [facility]; Protocol Colchicine (Colchicine) 0.6 mg PO DAILY [facility] Last Admin: 02/04/20 10:33 Dose: 0.6 mg Documented by: Guaifenesin (Robitussin) 20 ml PO Q4H PRN PRN PRN Reason: COUGH Heparin Sodium (Porcine) (Heparin Na) 5,000 unit SC Q8 [facility] Last Admin: 02/04/20 05:14 Dose: Not Given Documented by: Sodium Chloride () 250 mls @ 15 mls/hr IV .[id number] PRN PRN Reason: Saline Flush Sodium Chloride () 250 mls @ 15 mls/hr IV .[id number] PRN PRN Reason: Additional IVPB Infusion Furosemide 500 mg/ N/A 50 mls @ 1 mls/hr CONT INF .Q50H [facility] Last Admin: 02/04/20 18:50 Dose: 10 mg/hr, 1 mls/hr Documented by: Insulin Human Lispro (Humalog Kwikpen (Bkc)) 0 unit SC ACHS [facility]; Protocol Last Admin: 02/04/20 23:35 Dose: Not Given Documented by: Melatonin (Melatonin) 3 mg PO QHS PRN PRN PRN Reason: INSOMNIA Last Admin: 02/02/20 23:05 Dose: 3 mg Documented by: Metoprolol Tartrate (Lopressor (Beta Fany)) 25 mg PO BID [facility] Last Admin: 02/04/20 22:54 Dose: 25 mg Documented by: Morphine Sulfate () 2 mg IV Q3H PRN PRN PRN Reason: Pain Score 6-10/10 Last Admin: 02/05/20 05:52 Dose: 2 mg Documented by: Nystatin (Mycostatin) 1 applic TOPICAL TID [facility]; Protocol Ondansetron HCl (Zofran) 4 mg IV Q8H PRN PRN PRN Reason: NAUSEA/VOMITING Last Admin: 02/02/20 07:00 Dose: 4 mg Documented by: Oxycodone HCl (Oxyir) 5 mg PO Q4H PRN PRN PRN Reason: Pain Score 4-5/10 Last Admin: 02/04/20 22:53 Dose: 5 mg Documented by: Prochlorperazine Edisylate (Compazine Iv) 5 mg IV Q4H PRN PRN PRN Reason: Breakthrough nausea/vomiting Sodium Chloride () 10 - 40 ml IV UD PRN PRN Reason: SALINE FLUSH Last Admin: 02/01/20 18:05 Dose: 10 ml Documented by: Throat Lozenges (Cepacol Sore Throat Lozenge) 1 lozenge MUCOUS MEM Q2H PRN PRN PRN Reason: SORE THROAT Assessment/Plan All Active Problems (Last Reviewed 02/01/20 @ 15:[address] Ciro Loyola MD) Hypoxemia (Acute) Influenza A (Acute) Venous stasis ulcer of right lower extremity (Acute) Venous stasis ulcer of left lower extremity (Acute) QAMAR (acute kidney injury) (Acute) Urinary retention (Acute) Aortocoronary bypass status (Resolved ~02/22/03) Tachycardia (Acute) 64-year-old male with acute kidney injury 1. I discussed tunneled dialysis catheter placement with the patient in detail yesterday. I discussed the risks including not limited to bleeding, infection, pneumothorax, line infection and DVT. The patient understands the risks and is willing to proceed. Plan is to take the patient on morning for a right-sided IJ tunneled dialysis catheter placement. Patient has been made n.p.o. and his heparin has been held for morning. Rito Saul MD Pager: [facility] [address] [place] [address] [address] [place] [address] Office:
[2020-02-05 06:46] LABS: Albumin, Serum 3.3 g/dL (3.2-5.0); BUN 82 mg/dL (7-18); BUN/Creat Ratio 15.1 RATIO (10-20); Calcium,Total 8.2 mg/dL (8.5-10.1); Chloride 105 mmol/L (98-107); Creatinine, Serum 5.44 mg/dL (0.70-1.30); EST Glomerular Filtration Rate 11 mL/min (>60); Est Glom Filt Rate - Afr Amer 14 mL/min (>60); Estimated Creatinine Clearance 10.28 ml/min; Glucose 96 mg/dL (74-106); Phosphorus 5.8 mg/dL (2.5-4.9); Potassium 5.5 mmol/L (3.5-5.1); Sodium Level 137 mmol/L (136-145)
[2020-02-05] MEDS: Nystatin Ointment 1 APPLIC TOPICAL (06:48)
[2020-02-05] MEDS: Menthol/Lanolin/Calamine/Znox 113 GM Tube 1 APPLIC TOPICAL ×3 (06:49→21:56)
[2020-02-05 07:00] LABS: Bedside Glucose 92 mg/dL (70-110)
[2020-02-05 08:10] LABS: Bedside Glucose 92 mg/dL (70-110)
[2020-02-05 08:19] LABS: Hemoglobin A1c 5.6 % (3.8-5.6)
[2020-02-05] MEDS: Heparin 10,000 UNITS/10 ML Vial 10000 UNITS (09:42)
--- NOTE | 2020-02-05 10:25 | RAD_ITS ---
STUDY: X-RAY CHEST REASON FOR EXAM: Male, 64 years old. Hemodialysis catheter placement TECHNIQUE: Single AP portable view of the chest. COMPARISON: 02/01/2020 FINDINGS: There has been interval placement of a right-sided dialysis catheter with its tip overlying the SVC. Status post median sternotomy/CABG. Left-sided single lead AICD is seen. There is diffuse pulmonary interstitial thickening. Small to moderate left pleural effusion, this is unchanged. No pneumothorax. There is mild enlargement of the cardiac silhouette, similar to prior exam. Normal mediastinum and delio. Normal visualized pulmonary arteries. Normal visualized aortic arch and descending thoracic aorta. Normal visualized thoracic spine. Normal visualized ribs, clavicles, and shoulders. There is no demonstrated abnormality of the visualized soft tissue structures of the upper abdomen. RAD/CXR for Line Placement IMPRESSION: Right-sided dialysis catheter with its tip overlying the SVC. No pneumothorax. Mild diffuse pulmonary edema and small to moderate left pleural effusion. Cardiomegaly. Electronically Signed: Reggie Dietrich, at 11:45 EDT Tel , Service support ,
--- NOTE | 2020-02-05 10:25 | PCM.OPRPT ---
Problem List (1) QAMAR (acute kidney injury) Status: Acute Report of Operation Date of Procedure: 02/05/20 Pre-Operative Diagnosis: Acute kidney injury, need for dialysis access Post-Operative Diagnosis: Same Surgery/Procedure Performed:: Ultrasound and fluoroscopy guided right tunneled dialysis catheter placement utilizing right IJ Description of Procedure: Patient was brought back to the operating room and MAC anesthesia was induced. The right neck and chest were prepped in usual sterile fashion. The right neck was inspected using ultrasound the right IJ was selected. The skin overlying the IJ was anesthetized as well as skin over the chest and the tract. A small incision was made over the chest as well as the right neck. Using a needle and ultrasound guidance, the right IJ was accessed. There was good aspiration of dark blood and the guidewire was placed without resistance and under fluoroscopy into the superior vena cava. Next the needle was removed and serial dilators were placed and then the peel-away sheath was placed over this and the guidewire was removed. The catheter was then tunneled from the chest incision to the neck incision and placed through the peel-away sheath and the peel-away sheath was removed. Fluoroscopy was used to confirm the placement of the catheter as well as the fact that it was not came to the neck. Next both catheters were flushed with saline and then 1.5 mL's of heparin solution. The catheter was then sutured to the skin using 3-0 nylon suture and the skin incision at the neck was closed with interrupted 3-0 Vicryl suture and Steri-Strips. Silver dressing was placed over the skin site and a dressing was applied over all of these. Patient tolerated the procedure well was brought to PACU in stable condition. Grafts/Implants Used: 13 cm curved palindrome temporary dialysis catheter - Admit VTE Documentation VTE Mechan Device Prophylaxis: SCD's
--- NOTE | 2020-02-05 10:30 | PN.RENAL_ITS ---
Patient Problems: Active and Suspected Problems (Last Reviewed 02/01/20 @ 15:[address] Ciro Loyola MD) QAMAR (acute kidney injury) (Acute) Urinary retention (Acute) Subjective: Going for IJ TDC oligoanuric with FO and solute overload - Physical Exam Vitals/I&O's: Vital Signs Temp Pulse Resp BP Pulse Ox 98.0 F 79 18 112/49 L 100 02/05/20 10:10 02/05/20 10:10 02/05/20 10:10 02/05/20 10:10 02/05/20 10:10 Oxygen Flow Rate (L/min) 2 Oxygen Delivery Method Nasal Cannula Weight: 113.897 kg Body Mass Index (BMI) 47.4 Intake and Output for Last 24 Hours 02/03/20 02/04/20 02/05/20 23:59 23:59 23:59 Intake Total 953.71 / 953.71 424.62 / 424.62 Output Total 240 / 240 1075 / 1075 950 / 950 Balance 713.71 / 713.71 -650.38 / -650.38 -950 / -950 General: Alert Neck: JVD, Bilateral Lungs: Short of Breath, Wheezes Cardiovascular: Regular rate Abdomen: Bowel Sounds Present Extremities: Edema Skin: No rashes, No breakdown Musculoskeletal: No Tenderness to Palpation of Joints or Extremities Laboratory Results 02/04/20 12:56: POC Glucose 137 H 02/04/20 16:42: POC Glucose 114 H 02/04/20 22:50: POC Glucose 112 H 02/05/20 01:05: COVID-19 ([facility]USA) Not Detected 02/05/20 06:00: Sodium 137, Potassium 5.5 H, Chloride 105, Carbon Dioxide 26.0, BUN 82 H, Creatinine 5.44 H, Estim Creat Clear Calc 10.28, Est GFR (MDRD) Af Amer 14 L, Est GFR (MDRD) Non-Af 11 L, BUN/Creatinine Ratio 15.1, Glucose 96, Calcium 8.2 L, Phosphorus 5.8 H, Albumin 3.3 02/05/20 06:00: WBC 6.8, RBC 3.85 L, Hgb 10.6 L, Hct 34.7 L, MCV 90.1, MCH 27.5, MCHC 30.5 L, RDW Std Deviation 54.2 H, RDW Coeff of Aubrey 16.3 H, Plt Count 226, MPV 12.0, Immature Gran % (Auto) 0.700, Neut % (Auto) 66.6, Lymph % (Auto) 16.7 L, Villalba % (Auto) 9.3, Eos % (Auto) 6.1 H, Baso % (Auto) 0.6, Absolute Neuts (auto) 4.5, Absolute Lymphs (auto) 1.13, Nucleated RBC % 0 02/05/20 06:00: APTT 38.1 H 02/05/20 06:00: Hemoglobin A1c 5.6 02/05/20 06:56: POC Glucose 92 02/05/20 08:09: POC Glucose 92 Current Medications Acetaminophen (Tylenol) 650 mg PO Q6H PRN PRN PRN Reason: Pain Score 1-10/Temp > 100.7 F Last Admin: 02/04/20 18:51 Dose: 650 mg Documented by: Al Hydroxide/Mg Hydroxide (Mylanta Ii) 30 ml PO Q6H PRN PRN PRN Reason: Gastric Burning Albuterol Sulfate (Ventolin Aerosols) 2.5 mg INHALATION Q2H PRN PRN PRN Reason: Dyspnea, wheezing Allopurinol (Zyloprim) 300 mg PO DAILY [facility] Last Admin: 02/04/20 10:33 Dose: 300 mg Documented by: Amiodarone HCl (Cordarone) 100 mg PO DAILY [facility] Last Admin: 02/04/20 10:33 Dose: 100 mg Documented by: Aspirin (Aspirin, Baby) 81 mg PO DAILY@0800 [facility] Last Admin: 02/04/20 10:33 Dose: 81 mg Documented by: Atorvastatin Calcium (Lipitor) 10 mg PO QHS [facility] Last Admin: 02/04/20 22:54 Dose: 10 mg Documented by: Calamine/Phenol (Calmoseptine Ointment) 1 applic TOPICAL TID [facility]; Protocol Last Admin: 02/05/20 06:49 Dose: 1 applicatio Documented by: Colchicine (Colchicine) 0.6 mg PO DAILY [facility] Last Admin: 02/04/20 10:33 Dose: 0.6 mg Documented by: Guaifenesin (Robitussin) 20 ml PO Q4H PRN PRN PRN Reason: COUGH Heparin Sodium (Porcine) (Heparin Na) 5,000 unit SC Q8 [facility] Last Admin: 02/04/20 05:14 Dose: Not Given Documented by: Sodium Chloride () 250 mls @ 15 mls/hr IV .[id number] PRN PRN Reason: Saline Flush Sodium Chloride () 250 mls @ 15 mls/hr IV .[id number] PRN PRN Reason: Additional IVPB Infusion Furosemide 500 mg/ N/A 50 mls @ 1 mls/hr CONT INF .Q50H [facility] Last Admin: 02/04/20 18:50 Dose: 10 mg/hr, 1 mls/hr Documented by: Insulin Human Lispro (Humalog Kwikpen (Bkc)) 0 unit SC ACHS [facility]; Protocol Last Admin: 02/04/20 23:35 Dose: Not Given Documented by: Melatonin (Melatonin) 3 mg PO QHS PRN PRN PRN Reason: INSOMNIA Last Admin: 02/02/20 23:05 Dose: 3 mg Documented by: Metoprolol Tartrate (Lopressor (Beta Fany)) 25 mg PO BID [facility] Last Admin: 02/04/20 22:54 Dose: 25 mg Documented by: Morphine Sulfate () 2 mg IV Q3H PRN PRN PRN Reason: Pain Score 6-10/10 Last Admin: 02/05/20 05:52 Dose: 2 mg Documented by: Nystatin (Mycostatin) 1 applic TOPICAL TID [facility]; Protocol Last Admin: 02/05/20 06:48 Dose: 1 applic Documented by: Ondansetron HCl (Zofran) 4 mg IV Q8H PRN PRN PRN Reason: NAUSEA/VOMITING Last Admin: 02/02/20 07:00 Dose: 4 mg Documented by: Oxycodone HCl (Oxyir) 5 mg PO Q4H PRN PRN PRN Reason: Pain Score 4-5/10 Last Admin: 02/04/20 22:53 Dose: 5 mg Documented by: Prochlorperazine Edisylate (Compazine Iv) 5 mg IV Q4H PRN PRN PRN Reason: Breakthrough nausea/vomiting Sodium Chloride () 10 - 40 ml IV UD PRN PRN Reason: SALINE FLUSH Last Admin: 02/01/20 18:05 Dose: 10 ml Documented by: Throat Lozenges (Cepacol Sore Throat Lozenge) 1 lozenge MUCOUS MEM Q2H PRN PRN PRN Reason: SORE THROAT Medical Necessity - Tobacco Use Smoking Status: Former smoker Tobacco Use: Non-smoker Assessment/Plan All Active Problems (Last Reviewed 02/01/20 @ 15:[address] Ciro Loyola MD) Hypoxemia (Acute) Influenza A (Acute) Venous stasis ulcer of right lower extremity (Acute) Venous stasis ulcer of left lower extremity (Acute) QAMAR (acute kidney injury) (Acute) Urinary retention (Acute) Aortocoronary bypass status (Resolved ~02/22/03) Tachycardia (Acute) 1. Acute kidney injury on chronic kidney disease stage 3. Baseline SCr from 11/2019 was 1.67 mg/dL. QAMAR is due to cardiorenal syndrome (FENa is less than 1% despite Lasix drip). Possible that prerenal QAMAR from CRS could progress to ischemic ATN as well. No obstruction seen on CT of abdomen this admission. UA showed 2+ protein and many RBC, but I have low suspicion for acute GN at this point. Low suspicion also for other causes of QAMAR such as AIN. Continue with Lasix drip but response has been poor (only 240 mL of UOP in the last 24 hrs) despite metolazone yesterday. Will proceed with dialysis. Getting TDC. Will continue Lasix drip until we can start HD. HD today with Qb 4000/Qd 8000 3K/2.5 calcium IUF 3 L 2. Hyperkalemia. K is mildly increased. No need for SPS. Hyperkalemia is likely due to QAMAR/CKD. Continue to limit K in diet. Will dialyze once TDC is placed. 3. Heart failure with preserved ejection fraction. Pt's situation is also complicated by pulmonary HTN and QAMAR on CKD. Not responding to Lasix drip and metolazone. Unlikely to get more response from increasing dose of Lasix and he is already hypotensive. Will dialyze once TDC is placed. May need midodrine prior to dialysis to maximize fluid removal. I suspect he also has KEVIN given his history and body habitus. This may be contributing to HF especially the R sided manifestation. May benefit from sleep study and CPAP if indicated.
[2020-02-05 11:21] LABS: Bedside Glucose 93 mg/dL (70-110)
--- NOTE | 2020-02-05 13:06 | CASEMGMT ---
OP notes, CXR, and current nephrology note/order faxed to [facility] at this time. SStpina GALLARDO CM
[2020-02-05 13:31] LABS: Hepatitis B Surface Antibody Reactive
[2020-02-05 13:43] LABS: Hepatitis B Surface Antigen Non-Reactive (Nonreactive)
--- NOTE | 2020-02-05 14:21 | PCM.PN.HOSP ---
Patient Problems: Active and Suspected Problems (Last Reviewed 02/01/20 @ 15:[address] Ciro Loyola MD) QAMAR (acute kidney injury) (Acute) Urinary retention (Acute) Reason for Visit: QAMAR Subjective: no shortness of breath. feeling well. Vitals/I&O's: Vital Signs Temp Pulse Resp BP Pulse Ox 36.7 C 72 16 110/50 L 99 02/05/20 14:08 02/05/20 14:08 02/05/20 14:08 02/05/20 14:08 02/05/20 14:08 Oxygen Flow Rate (L/min) 2 Oxygen Delivery Method Nasal Cannula Weight: 113.897 kg Body Mass Index (BMI) 47.4 Intake and Output for Last 24 Hours 02/03/20 02/04/20 02/05/20 23:59 23:59 23:59 Intake Total 953.71 / 953.71 424.62 / 424.62 Output Total 240 / 240 1075 / 1075 1550 / 1550 Balance 713.71 / 713.71 -650.38 / -650.38 -1550 / -1550 General: Alert, No apparent distress, - - seen on HD HEENT: Atraumatic, Normocephalic Oral: Moist Mucosa, No Gingival or Mucosal Lesions/ Ulcerations Neck: No Nodes, Thyroid Normal Size and Texture Lungs: Clear to auscultation, Normal air movement, No rhonchi, No wheeze Cardiovascular: Regular rate, Regular Rhythm, Normal S1, Normal S2 Abdomen: Bowel Sounds Present, Soft, Non Tender, Non-Distended, Obese Extremities: No Calf Tenderness, Edema Laboratory Results 02/04/20 16:42: POC Glucose 114 H 02/04/20 22:50: POC Glucose 112 H 02/05/20 01:05: COVID-19 ([facility]USA) Not Detected 02/05/20 06:00: Sodium 137, Potassium 5.5 H, Chloride 105, Carbon Dioxide 26.0, BUN 82 H, Creatinine 5.44 H, Estim Creat Clear Calc 10.28, Est GFR (MDRD) Af Amer 14 L, Est GFR (MDRD) Non-Af 11 L, BUN/Creatinine Ratio 15.1, Glucose 96, Calcium 8.2 L, Phosphorus 5.8 H, Albumin 3.3 02/05/20 06:00: WBC 6.8, RBC 3.85 L, Hgb 10.6 L, Hct 34.7 L, MCV 90.1, MCH 27.5, MCHC 30.5 L, RDW Std Deviation 54.2 H, RDW Coeff of Aubrey 16.3 H, Plt Count 226, MPV 12.0, Immature Gran % (Auto) 0.700, Neut % (Auto) 66.6, Lymph % (Auto) 16.7 L, Boundary % (Auto) 9.3, Eos % (Auto) 6.1 H, Baso % (Auto) 0.6, Absolute Neuts (auto) 4.5, Absolute Lymphs (auto) 1.13, Nucleated RBC % 0 02/05/20 06:00: APTT 38.1 H 02/05/20 06:00: Hemoglobin A1c 5.6 02/05/20 06:56: POC Glucose 92 02/05/20 08:09: POC Glucose 92 02/05/20 11:16: POC Glucose 93 02/05/20 11:30: Hep B Core Total Ab Pending 02/05/20 11:30: Hep Bs Antigen Non-Reactive 02/05/20 11:30: Hep Bs Antibody Reactive Current Medications Acetaminophen (Tylenol) 650 mg PO Q6H PRN PRN PRN Reason: Pain Score 1-10/Temp > 100.7 F Last Admin: 02/04/20 18:51 Dose: 650 mg Documented by: Al Hydroxide/Mg Hydroxide (Mylanta Ii) 30 ml PO Q6H PRN PRN PRN Reason: Gastric Burning Albuterol Sulfate (Ventolin Aerosols) 2.5 mg INHALATION Q2H PRN PRN PRN Reason: Dyspnea, wheezing Allopurinol (Zyloprim) 300 mg PO DAILY [facility] Last Admin: 02/04/20 10:33 Dose: 300 mg Documented by: Amiodarone HCl (Cordarone) 100 mg PO DAILY [facility] Last Admin: 02/04/20 10:33 Dose: 100 mg Documented by: Aspirin (Aspirin, Baby) 81 mg PO DAILY@0800 [facility] Last Admin: 02/04/20 10:33 Dose: 81 mg Documented by: Atorvastatin Calcium (Lipitor) 10 mg PO QHS [facility] Last Admin: 02/04/20 22:54 Dose: 10 mg Documented by: Calamine/Phenol (Calmoseptine Ointment) 1 applic TOPICAL TID [facility]; Protocol Last Admin: 02/05/20 06:49 Dose: 1 applicatio Documented by: Colchicine (Colchicine) 0.6 mg PO DAILY [facility] Last Admin: 02/04/20 10:33 Dose: 0.6 mg Documented by: Guaifenesin (Robitussin) 20 ml PO Q4H PRN PRN PRN Reason: COUGH Heparin Sodium (Porcine) (Heparin Na) 5,000 unit SC Q8 [facility] Last Admin: 02/04/20 05:14 Dose: Not Given Documented by: Sodium Chloride () 250 mls @ 15 mls/hr IV .[id number] PRN PRN Reason: Saline Flush Sodium Chloride () 250 mls @ 15 mls/hr IV .[id number] PRN PRN Reason: Additional IVPB Infusion Furosemide 500 mg/ N/A 50 mls @ 1 mls/hr CONT INF .Q50H [facility] Last Admin: 02/04/20 18:50 Dose: 10 mg/hr, 1 mls/hr Documented by: Insulin Human Lispro (Humalog Kwikpen (Bkc)) 0 unit SC ACHS [facility]; Protocol Last Admin: 02/05/20 11:45 Dose: Not Given Documented by: Melatonin (Melatonin) 3 mg PO QHS PRN PRN PRN Reason: INSOMNIA Last Admin: 02/02/20 23:05 Dose: 3 mg Documented by: Metoprolol Tartrate (Lopressor (Beta Fany)) 25 mg PO BID [facility] Last Admin: 02/05/20 11:45 Dose: Not Given Documented by: Morphine Sulfate () 2 mg IV Q3H PRN PRN PRN Reason: Pain Score 6-10/10 Last Admin: 02/05/20 05:52 Dose: 2 mg Documented by: Nystatin (Mycostatin) 1 applic TOPICAL TID [facility]; Protocol Last Admin: 02/05/20 06:48 Dose: 1 applic Documented by: Ondansetron HCl (Zofran) 4 mg IV Q8H PRN PRN PRN Reason: NAUSEA/VOMITING Last Admin: 02/02/20 07:00 Dose: 4 mg Documented by: Oxycodone HCl (Oxyir) 5 mg PO Q4H PRN PRN PRN Reason: Pain Score 4-5/10 Last Admin: 02/04/20 22:53 Dose: 5 mg Documented by: Prochlorperazine Edisylate (Compazine Iv) 5 mg IV Q4H PRN PRN PRN Reason: Breakthrough nausea/vomiting Sodium Chloride () 10 - 40 ml IV UD PRN PRN Reason: SALINE FLUSH Last Admin: 02/01/20 18:05 Dose: 10 ml Documented by: Throat Lozenges (Cepacol Sore Throat Lozenge) 1 lozenge MUCOUS MEM Q2H PRN PRN PRN Reason: SORE THROAT STROKE Vital Signs/Narrative: Vital Signs Temp Pulse Resp BP Pulse Ox 02/05/20 14:08 36.7 C 72 16 110/50 L 99 02/05/20 10:52 36.8 C 74 16 116/63 98 Medical Necessity - Tobacco Use Smoking Status: Former smoker Tobacco Use: Non-smoker Assessment/Plan All Active Problems (Last Reviewed 02/01/20 @ 15:[address] Ciro Loyola MD) Hypoxemia (Acute) Influenza A (Acute) Venous stasis ulcer of right lower extremity (Acute) Venous stasis ulcer of left lower extremity (Acute) QAMAR (acute kidney injury) (Acute) Urinary retention (Acute) Aortocoronary bypass status (Resolved ~02/22/03) Tachycardia (Acute) 1. Acute heart failure with preserved ejection fraction: Minimal improvement with furosemide gtt. Complicated by severe pulmonary hypertension. 2. Acute kidney injury on chronic kidney disease stage III: Worsening. oliguric tunnelled HD catheter placed on HD 02/04 3. DM2 fair control metformin held given QAMAR on SSI 4. VTE prophylaxis: SQ heparin Inpatient E&M: 81381 Subs Hosp L2
[2020-02-05] MEDS: Allopurinol 300 MG Tablet PO (14:27)
[2020-02-05] MEDS: Amiodarone 200 MG Tablet 100 MG PO (14:28)
[2020-02-05] MEDS: Aspirin 81 MG TAB.CHEW PO (14:29)
[2020-02-05] MEDS: Heparin 10,000 UNITS/10 ML Vial IV (14:31)
[2020-02-05 16:33] LABS: M R Staph aureus DNA By PCR Negative (Negative); Probe Check PASS; Staph aureus DNA By PCR NEGATIVE (Negative)
[2020-02-05 16:56] LABS: Bedside Glucose 180 mg/dL (70-110)
[2020-02-05] MEDS: oxyCODONE 5 MG Tablet PO (20:15)
[2020-02-05] MEDS: Heparin Injection (Vial) 5,000 UNIT/ML VIAL 5000 UNIT SC (21:56)
[2020-02-05] MEDS: Nystatin Powder 15gm Bottle 1 APPLIC TOPICAL (21:57)
[2020-02-05] MEDS: Atorvastatin Calcium 10 MG Tablet PO (21:57)
[2020-02-05] MEDS: Metoprolol Tartrate 25 MG Tablet PO (21:57)
[2020-02-05 22:15] LABS: Bedside Glucose 103 mg/dL (70-110)
[2020-02-06] VITALS (15 sets, daily range): BP systolic 98–120; BP diastolic 45–64; PULSE 74–93; RESP 16–19; TEMP 36.3–37.2; O2SAT 96–100
[2020-02-06] MEDS: oxyCODONE 5 MG Tablet PO ×4 (02:22→22:34)
[2020-02-06] MEDS: Acetaminophen 325 MG Tablet 650 MG PO (03:32)
[2020-02-06] MEDS: Nystatin Powder 15gm Bottle 1 APPLIC TOPICAL ×3 (05:03→21:11)
[2020-02-06] MEDS: Heparin Injection (Vial) 5,000 UNIT/ML VIAL 5000 UNIT SC ×2 (05:03→22:27)
[2020-02-06] MEDS: Menthol/Lanolin/Calamine/Znox 113 GM Tube 1 APPLIC TOPICAL ×3 (05:03→22:26)
[2020-02-06 05:47] LABS: Anion Gap 5 (5-15); BUN 62 mg/dL (7-18); Calcium,Total 8.2 mg/dL (8.5-10.1); Chloride 103 mmol/L (98-107); Creatinine, Serum 4.14 mg/dL (0.70-1.30); EST Glomerular Filtration Rate 16 mL/min (>60); Est Glom Filt Rate - Afr Amer 19 mL/min (>60); Estimated Creatinine Clearance 13.51 ml/min; Glucose 111 mg/dL (74-106); Potassium 4.8 mmol/L (3.5-5.1); Sodium Level 137 mmol/L (136-145)
[2020-02-06 06:45] LABS: Bedside Glucose 109 mg/dL (70-110)
[2020-02-06 09:06] LABS: Hepatitis B Core Ab Total Positive (Negative)
--- NOTE | 2020-02-06 09:20 | CASEMGMT ---
Complete Hep B panel resulted and faxed along with 1st run notes to [facility] and [facility] at this time. Call to Amado at [facility] and he states pt will have a MWF 1130 arrival for chair time. Awaiting schedule letter at this time and then pt to be updated on all. Dorothea GALLARDO CM
--- NOTE | 2020-02-06 11:17 | PCM.PN.HOSP ---
Patient Problems: Active and Suspected Problems (Last Reviewed 02/01/20 @ 15:[address] Ciro Loyola MD) QAMAR (acute kidney injury) (Acute) Urinary retention (Acute) Reason for Visit: QAMAR Subjective: No complaints. ready to go home. Vitals/I&O's: Vital Signs Temp Pulse Resp BP Pulse Ox 36.3 C L 78 16 114/56 L 96 02/06/20 09:03 02/06/20 09:03 02/06/20 09:03 02/06/20 09:03 02/06/20 09:03 Oxygen Flow Rate (L/min) 2 Oxygen Delivery Method Nasal Cannula Weight: 110.2 kg Body Mass Index (BMI) 47.4 Intake and Output for Last 24 Hours 02/04/20 02/05/20 02/06/20 23:59 23:59 23:59 Intake Total 424.62 / 424.62 220 / 220 Output Total 1075 / 1075 2600 / 2600 300 / 300 Balance -650.38 / -650.38 -2380 / -2380 -300 / -300 General: Alert, No apparent distress, - - on HD HEENT: Atraumatic, Normocephalic Oral: Moist Mucosa, No Gingival or Mucosal Lesions/ Ulcerations Neck: No Nodes, Thyroid Normal Size and Texture Lungs: Clear to auscultation, Normal air movement, No rhonchi, No wheeze Cardiovascular: Regular rate, Regular Rhythm, Normal S1, Normal S2 Abdomen: Bowel Sounds Present, Soft, Non Tender, Non-Distended, Obese Extremities: Edema Psych/Mental Status: Normal Affect, Appropriate Laboratory Results 02/05/20 11:16: POC Glucose 93 02/05/20 11:30: Hep B Core Total Ab Positive H 02/05/20 11:30: Hep Bs Antigen Non-Reactive 02/05/20 11:30: Hep Bs Antibody Reactive 02/05/20 15:00: S.aureus Protein A PCR NEGATIVE, MRSA (PCR) Negative 02/05/20 16:53: POC Glucose 180 H 02/05/20 22:02: POC Glucose 103 02/06/20 05:15: Sodium 137, Potassium 4.8, Chloride 103, Carbon Dioxide 29.0, Anion Gap 5, BUN 62 H, Creatinine 4.14 H, Estim Creat Clear Calc 13.51, Est GFR (MDRD) Af Amer 19 L, Est GFR (MDRD) Non-Af 16 L, BUN/Creatinine Ratio 15.0, Glucose 111 H, Calcium 8.2 L 02/06/20 06:32: POC Glucose 109 Current Medications Acetaminophen (Tylenol) 650 mg PO Q6H PRN PRN PRN Reason: Pain Score 1-10/Temp > 100.7 F Last Admin: 02/06/20 03:32 Dose: 650 mg Documented by: Al Hydroxide/Mg Hydroxide (Mylanta Ii) 30 ml PO Q6H PRN PRN PRN Reason: Gastric Burning Albuterol Sulfate (Ventolin Aerosols) 2.5 mg INHALATION Q2H PRN PRN PRN Reason: Dyspnea, wheezing Allopurinol (Zyloprim) 300 mg PO DAILY [facility] Last Admin: 02/05/20 14:27 Dose: 300 mg Documented by: Amiodarone HCl (Cordarone) 100 mg PO DAILY [facility] Last Admin: 02/05/20 14:28 Dose: 100 mg Documented by: Aspirin (Aspirin, Baby) 81 mg PO DAILY@0800 [facility] Last Admin: 02/05/20 14:29 Dose: 81 mg Documented by: Atorvastatin Calcium (Lipitor) 10 mg PO QHS [facility] Last Admin: 02/05/20 21:57 Dose: 10 mg Documented by: Calamine/Phenol (Calmoseptine Ointment) 1 applic TOPICAL TID [facility]; Protocol Last Admin: 02/06/20 05:03 Dose: 1 applicatio Documented by: Colchicine (Colchicine) 0.6 mg PO DAILY [facility] Last Admin: 02/05/20 14:30 Dose: 0.6 mg Documented by: Guaifenesin (Robitussin) 20 ml PO Q4H PRN PRN PRN Reason: COUGH Heparin Sodium (Porcine) (Heparin Na) 5,000 unit SC Q8 [facility] Last Admin: 02/06/20 05:03 Dose: 5,000 unit Documented by: Sodium Chloride () 250 mls @ 15 mls/hr IV .[id number] PRN PRN Reason: Saline Flush Sodium Chloride () 250 mls @ 15 mls/hr IV .[id number] PRN PRN Reason: Additional IVPB Infusion Furosemide 500 mg/ N/A 50 mls @ 1 mls/hr CONT INF .Q50H [facility] Last Admin: 02/04/20 18:50 Dose: 10 mg/hr, 1 mls/hr Documented by: Insulin Human Lispro (Humalog Kwikpen (Bkc)) 0 unit SC ACHS [facility]; Protocol Last Admin: 02/06/20 06:33 Dose: Not Given Documented by: Melatonin (Melatonin) 3 mg PO QHS PRN PRN PRN Reason: INSOMNIA Last Admin: 02/02/20 23:05 Dose: 3 mg Documented by: Metoprolol Tartrate (Lopressor (Beta Fany)) 25 mg PO BID [facility] Last Admin: 02/05/20 21:57 Dose: 25 mg Documented by: Morphine Sulfate () 2 mg IV Q3H PRN PRN PRN Reason: Pain Score 6-10/10 Last Admin: 02/05/20 16:45 Dose: 2 mg Documented by: Nystatin (Mycostatin Powder) 1 applic TOPICAL TID [facility]; Protocol Last Admin: 02/06/20 05:03 Dose: 1 applicatio Documented by: Ondansetron HCl (Zofran) 4 mg IV Q8H PRN PRN PRN Reason: NAUSEA/VOMITING Last Admin: 02/02/20 07:00 Dose: 4 mg Documented by: Oxycodone HCl (Oxyir) 5 mg PO Q4H PRN PRN PRN Reason: Pain Score 4-5/10 Last Admin: 02/06/20 09:07 Dose: 5 mg Documented by: Prochlorperazine Edisylate (Compazine Iv) 5 mg IV Q4H PRN PRN PRN Reason: Breakthrough nausea/vomiting Sodium Chloride () 10 - 40 ml IV UD PRN PRN Reason: SALINE FLUSH Last Admin: 02/01/20 18:05 Dose: 10 ml Documented by: Throat Lozenges (Cepacol Sore Throat Lozenge) 1 lozenge MUCOUS MEM Q2H PRN PRN PRN Reason: SORE THROAT STROKE Vital Signs/Narrative: Vital Signs Temp Pulse Resp BP Pulse Ox 02/06/20 09:03 36.3 C L 78 16 114/56 L 96 02/06/20 08:06 80 16 Medical Necessity - Tobacco Use Smoking Status: Former smoker Tobacco Use: Non-smoker Assessment/Plan All Active Problems (Last Reviewed 02/01/20 @ 15:[address] Ciro Loyola MD) Hypoxemia (Acute) Influenza A (Acute) Venous stasis ulcer of right lower extremity (Acute) Venous stasis ulcer of left lower extremity (Acute) QAMAR (acute kidney injury) (Acute) Urinary retention (Acute) Aortocoronary bypass status (Resolved ~02/22/03) Tachycardia (Acute) 1. Acute heart failure with preserved ejection fraction: Minimal improvement with furosemide gtt. Complicated by severe pulmonary hypertension. 2. Acute kidney injury on chronic kidney disease stage III: Worsening. oliguric tunnelled HD catheter placed hemodialysis Anti HBs +, Anti HBc +, HBV Ag -. Sign of immunity to prior infection. [facility] for HD at [facility]. 3. DM2 fair control metformin held given QAMAR on SSI 4. VTE prophylaxis: SQ heparin Inpatient E&M: 73273 Subs Hosp L2
[2020-02-06] MEDS: Furosemide 500 MG in Empty Viaflex 50 mL 1 EACH CONT INF (11:38)
[2020-02-06 12:25] LABS: Bedside Glucose 130 mg/dL (70-110)
--- NOTE | 2020-02-06 15:19 | PCM.PN.REN ---
Patient Problems: Active and Suspected Problems (Last Reviewed 02/01/20 @ 15:[address] Ciro Loyola MD) QAMAR (acute kidney injury) (Acute) Urinary retention (Acute) Subjective: Following for QAMAR on CKD. Dialysis dependent. Pt denies CP. SOB is brea. Still has significant edema. Seen on HD today. - Physical Exam Vitals/I&O's: Vital Signs Temp Pulse Resp BP Pulse Ox 97.7 F L 86 18 107/56 L 100 02/06/20 10:00 02/06/20 10:00 02/06/20 10:00 02/06/20 10:00 02/06/20 10:00 Oxygen Flow Rate (L/min) 2 Oxygen Delivery Method Nasal Cannula Weight: 110.2 kg Body Mass Index (BMI) 47.4 Intake and Output for Last 24 Hours 02/04/20 02/05/20 02/06/20 23:59 23:59 23:59 Intake Total 424.62 / 424.62 220 / 220 40.8 / 40.8 Output Total 1075 / 1075 2600 / 2600 4100 / 4100 Balance -650.38 / -650.38 -2380 / -2380 -4059.2 / -4059.2 General: Alert, Oriented x3 HEENT: EOMI Oral: Moist Mucosa Neck: Supple Lungs: Clear to auscultation - anteriorly Cardiovascular: Normal S1, Normal S2, No murmurs Abdomen: Soft, Non Tender, Obese Extremities: Edema - 4+ LE Microbiology Past 72 Hours 02/05/20 15:00 Wound - Leg, Left Gram Stain - Final Laboratory Results 02/05/20 11:30: Hep B Core Total Ab Positive H 02/05/20 15:00: S.aureus Protein A PCR NEGATIVE, MRSA (PCR) Negative 02/05/20 16:53: POC Glucose 180 H 02/05/20 22:02: POC Glucose 103 02/06/20 05:15: Sodium 137, Potassium 4.8, Chloride 103, Carbon Dioxide 29.0, Anion Gap 5, BUN 62 H, Creatinine 4.14 H, Estim Creat Clear Calc 13.51, Est GFR (MDRD) Af Amer 19 L, Est GFR (MDRD) Non-Af 16 L, BUN/Creatinine Ratio 15.0, Glucose 111 H, Calcium 8.2 L 02/06/20 06:32: POC Glucose 109 02/06/20 12:20: POC Glucose 130 H Current Medications Acetaminophen (Tylenol) 650 mg PO Q6H PRN PRN PRN Reason: Pain Score 1-10/Temp > 100.7 F Last Admin: 02/06/20 03:32 Dose: 650 mg Documented by: Al Hydroxide/Mg Hydroxide (Mylanta Ii) 30 ml PO Q6H PRN PRN PRN Reason: Gastric Burning Albuterol Sulfate (Ventolin Aerosols) 2.5 mg INHALATION Q2H PRN PRN PRN Reason: Dyspnea, wheezing Allopurinol (Zyloprim) 300 mg PO DAILY [facility] Last Admin: 02/05/20 14:27 Dose: 300 mg Documented by: Amiodarone HCl (Cordarone) 100 mg PO DAILY [facility] Last Admin: 02/05/20 14:28 Dose: 100 mg Documented by: Aspirin (Aspirin, Baby) 81 mg PO DAILY@0800 [facility] Last Admin: 02/05/20 14:29 Dose: 81 mg Documented by: Atorvastatin Calcium (Lipitor) 10 mg PO QHS [facility] Last Admin: 02/05/20 21:57 Dose: 10 mg Documented by: Calamine/Phenol (Calmoseptine Ointment) 1 applic TOPICAL TID [facility]; Protocol Last Admin: 02/06/20 05:03 Dose: 1 applicatio Documented by: Colchicine (Colchicine) 0.6 mg PO DAILY [facility] Last Admin: 02/05/20 14:30 Dose: 0.6 mg Documented by: Furosemide (Lasix) 80 mg PO BID@1000,1800 [facility] Guaifenesin (Robitussin) 20 ml PO Q4H PRN PRN PRN Reason: COUGH Heparin Sodium (Porcine) (Heparin Na) 5,000 unit SC Q8 [facility] Last Admin: 02/06/20 05:03 Dose: 5,000 unit Documented by: Sodium Chloride () 250 mls @ 15 mls/hr IV .[id number] PRN PRN Reason: Saline Flush Sodium Chloride () 250 mls @ 15 mls/hr IV .[id number] PRN PRN Reason: Additional IVPB Infusion Insulin Human Lispro (Humalog Kwikpen (Bkc)) 0 unit SC ACHS [facility]; Protocol Last Admin: 02/06/20 13:10 Dose: Not Given Documented by: Melatonin (Melatonin) 3 mg PO QHS PRN PRN PRN Reason: INSOMNIA Last Admin: 02/02/20 23:05 Dose: 3 mg Documented by: Metoprolol Tartrate (Lopressor (Beta Fany)) 25 mg PO BID [facility] Last Admin: 02/05/20 21:57 Dose: 25 mg Documented by: Morphine Sulfate () 2 mg IV Q3H PRN PRN PRN Reason: Pain Score 6-10/10 Last Admin: 02/05/20 16:45 Dose: 2 mg Documented by: Nystatin (Mycostatin Powder) 1 applic TOPICAL TID [facility]; Protocol Last Admin: 02/06/20 05:03 Dose: 1 applicatio Documented by: Ondansetron HCl (Zofran) 4 mg IV Q8H PRN PRN PRN Reason: NAUSEA/VOMITING Last Admin: 02/02/20 07:00 Dose: 4 mg Documented by: Oxycodone HCl (Oxyir) 5 mg PO Q4H PRN PRN PRN Reason: Pain Score 4-5/10 Last Admin: 02/06/20 09:07 Dose: 5 mg Documented by: Prochlorperazine Edisylate (Compazine Iv) 5 mg IV Q4H PRN PRN PRN Reason: Breakthrough nausea/vomiting Sodium Chloride () 10 - 40 ml IV UD PRN PRN Reason: SALINE FLUSH Last Admin: 02/01/20 18:05 Dose: 10 ml Documented by: Throat Lozenges (Cepacol Sore Throat Lozenge) 1 lozenge MUCOUS MEM Q2H PRN PRN PRN Reason: SORE THROAT Medical Necessity - Tobacco Use Smoking Status: Former smoker Tobacco Use: Non-smoker Assessment/Plan All Active Problems (Last Reviewed 02/01/20 @ 15:[address] Ciro Loyola MD) Hypoxemia (Acute) Influenza A (Acute) Venous stasis ulcer of right lower extremity (Acute) Venous stasis ulcer of left lower extremity (Acute) QAMAR (acute kidney injury) (Acute) Urinary retention (Acute) Aortocoronary bypass status (Resolved ~02/22/03) Tachycardia (Acute) 1. Acute kidney injury on chronic kidney disease stage 3. Baseline SCr from 11/2019 was 1.67 mg/dL. QAMAR is due to cardiorenal syndrome (FENa is less than 1% despite Lasix drip). Possible that prerenal QAMAR from CRS could progress to ischemic ATN as well. Dialysis started on 02/05/20. Seen on 2nd HD treatment today. Plan for 3rd treatment tomorrow. The pt has outpt dialysis unit assignment on 02/09/20 at [facility] [employer]. OK to discharge home from my standpoint if he is stable after HD tomorrow. However, we need to make sure he has reliable transportation to dialysis prior to discharge. We will monitor for recovery of renal function as we treat heart failure by removing further volume excess. 2. Hyperkalemia. Resolved witrh dialysis. Hyperkalemia was likely due to QAMAR/CKD. Continue to limit K in diet. 3. Heart failure with preserved ejection fraction. Pt's situation is also complicated by pulmonary HTN and QAMAR on CKD. Was not responding to Lasix drip and metolazone on 02/04/20, so dialysis started. Urine output has picked up, so I will keep pt on Lasix. However, we can switch to oral Lasix since we are continuing HD. I suspect he also has KEVIN given his history and body habitus. This may be contributing to HF especially the R sided manifestation. May benefit from sleep study and CPAP if indicated. Above d/w Dr. Looney
--- NOTE | 2020-02-06 15:20 | DIALYSIS ---
3.5 HR TX COMPLETE. PT TOLERATED WELL. NET UF 3000ML. SBP RANGE 91-114. NEXT TX TOMORROW. ORDERS RECEIVED AND VIEWED WITH DR. Leidy YODER,.
--- NOTE | 2020-02-06 15:35 | NURSING ---
Read and reviewed SN documentation
--- NOTE | 2020-02-06 16:02 | CASEMGMT ---
This RN CM to room to go over dialysis schedule with pt and he is updated on all at this time. Pt is ok with this RN CM calling pt's [id number] to update on all as well as their is some language barrier at this time. Call to pt's [id number], Reggie Orlando, at this time and he is updated on all. Reggie is aware that pt needs to be there by 1115 on sunday for 1st dialysis and that pt will most likely discharge tomorrow per physicians, voices understanding. Reggie states that he will be able to get pt there on sunday and he is aware that dialysis center should be able to help with set up of transportation for pt, voices understanding. Pt/[id number]-fne voice no further questions/concerns/needs at this time. Pt states no concerns with going at this time and states has been getting around in room 'ok'. Therapy has not been able to see pt last two days d/t dialysis. Dialysis schedule letter left with pt and Amado at [facility] aware that pt should d/c tomorrow and be there for 1st treatment on sunday, voices understanding. Dorothea RN CM
[2020-02-06] MEDS: Amiodarone 200 MG Tablet 100 MG PO (16:26)
[2020-02-06] MEDS: Aspirin 81 MG TAB.CHEW PO (16:26)
[2020-02-06] MEDS: Allopurinol 300 MG Tablet PO (16:28)
[2020-02-06] MEDS: Heparin 10,000 UNITS/10 ML Vial IV (16:31)
[2020-02-06 16:55] LABS: Bedside Glucose 154 mg/dL (70-110)
[2020-02-06] MEDS: Furosemide 80 MG Tablet PO (18:46)
[2020-02-06] MEDS: Atorvastatin Calcium 10 MG Tablet PO (22:29)
[2020-02-06] MEDS: Metoprolol Tartrate 25 MG Tablet PO (22:29)
[2020-02-06] MEDS: MELATONIN 3 MG TABLET PO (22:34)
[2020-02-06 23:16] LABS: Bedside Glucose 121 mg/dL (70-110)
[2020-02-07] VITALS (11 sets, daily range): BP systolic 105–121; BP diastolic 60–66; PULSE 71–92; RESP 16–18; TEMP 36.6–37.1; O2SAT 95–99
[2020-02-07] MEDS: Morphine 2 MG/ML Syringe IV (00:49)
[2020-02-07] MEDS: 0.9% Saline Lock 10 ML Syringe IV (00:49)
[2020-02-07] MEDS: Heparin Injection (Vial) 5,000 UNIT/ML VIAL 5000 UNIT SC ×2 (05:37→17:32)
[2020-02-07] MEDS: Menthol/Lanolin/Calamine/Znox 113 GM Tube 1 APPLIC TOPICAL ×2 (05:38→17:31)
[2020-02-07] MEDS: Nystatin Powder 15gm Bottle 1 APPLIC TOPICAL ×2 (05:38→17:31)
[2020-02-07 06:51] LABS: Bedside Glucose 117 mg/dL (70-110)
[2020-02-07 07:43] LABS: Albumin, Serum 2.9 g/dL (3.2-5.0); BUN 36 mg/dL (7-18); BUN/Creat Ratio 12.6 RATIO (10-20); Calcium,Total 8.4 mg/dL (8.5-10.1); Chloride 103 mmol/L (98-107); Creatinine, Serum 2.86 mg/dL (0.70-1.30); EST Glomerular Filtration Rate 24 mL/min (>60); Est Glom Filt Rate - Afr Amer 29 mL/min (>60); Estimated Creatinine Clearance 19.56 ml/min; Glucose 103 mg/dL (74-106); Phosphorus 3.8 mg/dL (2.5-4.9); Sodium Level 139 mmol/L (136-145)
[2020-02-07] MEDS: Aspirin 81 MG TAB.CHEW PO (09:09)
[2020-02-07] MEDS: oxyCODONE 5 MG Tablet PO (09:09)
[2020-02-07] MEDS: Amiodarone 200 MG Tablet 100 MG PO (09:10)
[2020-02-07] MEDS: Allopurinol 300 MG Tablet PO (09:11)
--- NOTE | 2020-02-07 11:06 | PCM.DC ---
- Discharge Diagnoses Current Active Problems: Current Active and Chronic Problems (Last Reviewed 02/01/20 @ 15:[address] 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) You will use the following diet at home:: Calorie/Carbohydrate Controlled (specify 1200, 1400, etc) - 1800, Renal (restricted protein/sodium) Call your doctor if you observe: Shortness of breath Allergies/Adverse Reactions: Allergies No Known Allergies Allergy (Verified 02/01/20 11:51) Medications to take at Discharge Aspirin [Aspirin, Baby] 81 mg PO DAILY@0800 03/10/14 colchicine 0.6 mg capsule 0.6 mg PO DAILY cap 05/22/17 Amiodarone HCl 100 mg PO DAILY 06/26/19 Simvastatin 20 mg PO QHS 06/26/19 albuterol sulfate 90 mcg/actuation aerosol inhaler 2 puff INHALATION Q4H PRN #18 g 12/04/19 Pulse Oximeter #1 ea 12/29/19 Acetaminophen [Tylenol Tablet] 650 mg PO Q6H PRN PRN tablet 02/07/20 Allopurinol [Zyloprim] 100 mg PO DAILY #30 tab 02/07/20 Furosemide [Lasix] 80 mg PO BID@1000,1800 #60 tab 02/07/20 Metoprolol Tartrate [Lopressor (beta carlin)] 25 mg PO BID #60 tab 02/07/20 The following prescriptions were given: Furosemide [Lasix] 80 mg PO BID@1000,1800 #60 tab Transmission Status: Pending to Open Utility #30 Metoprolol Tartrate [Lopressor (beta carlin)] 25 mg PO BID #60 tab Transmission Status: Pending to Open Utility #30 Allopurinol [Zyloprim] 100 mg PO DAILY #30 tab Transmission Status: Pending to Open Utility #30 Primary Care Physician: Manuel Sandoval MD [Primary Care Provider] - Within 1 Week Test Results: Test results from this visit will be discussed in further detail at your follow-up appointment, if applicable. Please Follow Up With: [facility] When: every Sunday, Sunday, Sunday Proposed Discharge Date: 02/07/20
--- NOTE | 2020-02-07 11:08 | DS.PCM_ITS ---
Discharge Date and Diagnosis - Problem List Patient Problems: Active and Suspected Problems (Last Reviewed 02/01/20 @ 15:[address] Ciro Loyola MD) QAMAR (acute kidney injury) (Acute) Urinary retention (Acute) Date of Admission: 02/01/20 Date of Discharge: 02/07/20 - Primary Discharge Diagnosis Acute Problems: Active Problems (Last Reviewed 02/01/20 @ 15:[address] Ciro Loyola MD) 1. Acute heart failure with preserved ejection fraction: * Minimal improvement with furosemide gtt. Now on oral furosemide. * Complicated by severe pulmonary hypertension. 2. Acute kidney injury on chronic kidney disease stage III: * urine output improving. * tunnelled HD catheter placed * hemodialysis * Anti HBs +, Anti HBc +, HBV Ag -. Sign of immunity to prior infection. * Eventually for HD at [facility]. - Secondary Discharge Diagnosis Chronic Problems: Chronic Problems (Last Reviewed 02/01/20 @ 15:[address] 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) Essential hypertension (Chronic) Pure hypercholesterolemia (Chronic) Atherosclerosis of coronary artery bypass graft without angina pectoris (Chronic) CABG x6 ; Internal Mammary to Anterior Descending, SVG to diag branch of the Anterior descending,SVG to the lateral & posteriorlateral CX, SVG to Posterior Descending and continuation branches of the RCA 02/27/03 Chronic systolic congestive heart failure (Chronic) Ischemic cardiomyopathy (Chronic) Pulmonary hypertension (Chronic) Presence of cardiac defibrillator (Chronic ~08/2004) Old myocardial infarction (Chronic) Hospital Course and Treatment Imaging Results: Clinical Impression(s) from Imaging Studies Chest X-Ray 02/01/20 12:08 IMPRESSION: Trace left pleural effusion, new. Electronically Signed: Ziyad Calvo MD ([place]) at 12:54 EDT , Service support , Abdomen/Pelvis CT 02/01/20 14:55 IMPRESSION: 1. Moderate volume ascites. Body wall edema. Left pleural effusion. 2. Nonobstructing bilateral nephrolithiasis. No hydronephrosis. Electronically Signed: Ziyad Calvo MD ([place]) at 15:26 EDT , Service support , Chest X-Ray 02/05/20 10:25 IMPRESSION: Right-sided dialysis catheter with its tip overlying the SVC. No pneumothorax. Mild diffuse pulmonary edema and small to moderate left pleural effusion. Cardiomegaly. Electronically Signed: Reggie Dietrich, at 11:45 EDT Tel , Service support , Consultations 02/01/20 16:50 Consult: Onc/Wound/power supply engineer Routine Comment: Operations: None Procedures: 2-D Echocardiogram - Normal LV size. The estimated ejection fraction is 55 %. Left ventricular systolic function is normal. Stage 1 diastolic dysfunction. Pulmonary artery systolic pressure is 55 mmHg. Moderate pulmonary hypertension. Compared to the previous the pulmonary pressures are lower, Dialysis, - - dialysis catheter placment Summary of Care Provided: The patient is a 64 year old M decreased urine output and lower extremity edema. Patient was found to be in acute kidney injury with a creatinine of 4.66. Creatinine actually went up during the course of his hospitalization and was oliguric at 1 point. Hemodialysis was initiated and patient has tolerated that thus far and actually his urine output has improved. Patient had been on a furosemide drip but was failing to improve. Patient will be discharged and will continue with furosemide oral plus continue with hemodialysis every Sunday. Is unclear if patient will be on dialysis short-term or if this will be potentially a lifelong endeavor. Patient will be discharged home in stable condition. [] Patient Problems: Active and Suspected Problems (Last Reviewed 02/01/20 @ 15:[address] Ciro Loyola MD) QAMAR (acute kidney injury) (Acute) Urinary retention (Acute) - Physical Exam Vitals/I&O's: Vital Signs Temp Pulse Resp BP Pulse Ox 36.6 C 76 18 119/62 99 10/03/20 09:03 02/07/20 09:13 02/07/20 09:03 02/07/20 09:13 02/07/20 09:03 Oxygen Flow Rate (L/min) 2 Oxygen Delivery Method Nasal Cannula Weight: 104.8 kg Body Mass Index (BMI) 47.4 Intake and Output for Last 24 Hours 02/05/20 02/06/20 02/07/20 23:59 23:59 23:59 Intake Total 220 / 220 165.57 / 165.57 0 / 0 Output Total 2600 / 2600 4725 / 4725 280 / 280 Balance -2380 / -2380 -4559.43 / -4559.43 -280 / -280 General: Alert, No apparent distress HEENT: Atraumatic, Normocephalic Neck: No Nodes, Thyroid Normal Size and Texture Lungs: Normal air movement, - - bibasilar crackles Cardiovascular: Regular rate, Regular Rhythm, Normal S1, Normal S2, No murmurs Abdomen: Bowel Sounds Present, Soft, Non Tender, Non-Distended Psych/Mental Status: Normal Affect, Appropriate Microbiology Past 72 Hours 02/05/20 15:00 Wound - Leg, Left Gram Stain - Final 02/05/20 15:00 Wound - Leg, Left Wound Culture - Preliminary Gram negative rosario Gram negative rosario#2 Gram negative roasrio#3 Gram positive organism Laboratory Results 02/06/20 12:20: POC Glucose 130 H 02/06/20 16:49: POC Glucose 154 H 02/06/20 22:28: POC Glucose 121 H 02/07/20 06:43: POC Glucose 117 H 02/07/20 06:56: Sodium 139, Potassium 4.0, Chloride 103, Carbon Dioxide 32.0, BUN 36 H, Creatinine 2.86 H, Estim Creat Clear Calc 19.56, Est GFR (MDRD) Af Amer 29 L, Est GFR (MDRD) Non-Af 24 L, BUN/Creatinine Ratio 12.6, Glucose 103, Calcium 8.4 L, Phosphorus 3.8, Albumin 2.9 L Current Medications Acetaminophen (Tylenol) 650 mg PO Q6H PRN PRN PRN Reason: Pain Score 1-10/Temp > 100.7 F Last Admin: 02/06/20 03:32 Dose: 650 mg Documented by: Al Hydroxide/Mg Hydroxide (Mylanta Ii) 30 ml PO Q6H PRN PRN PRN Reason: Gastric Burning Albuterol Sulfate (Ventolin Aerosols) 2.5 mg INHALATION Q2H PRN PRN PRN Reason: Dyspnea, wheezing Allopurinol (Zyloprim) 300 mg PO DAILY [facility] Last Admin: 02/07/20 09:11 Dose: 300 mg Documented by: Amiodarone HCl (Cordarone) 100 mg PO DAILY [facility] Last Admin: 02/07/20 09:10 Dose: 100 mg Documented by: Aspirin (Aspirin, Baby) 81 mg PO DAILY@0800 [facility] Last Admin: 02/07/20 09:09 Dose: 81 mg Documented by: Atorvastatin Calcium (Lipitor) 10 mg PO QHS [facility] Last Admin: 02/06/20 22:29 Dose: 10 mg Documented by: Calamine/Phenol (Calmoseptine Ointment) 1 applic TOPICAL TID [facility]; Protocol Last Admin: 02/07/20 05:38 Dose: 1 applicatio Documented by: Colchicine (Colchicine) 0.6 mg PO DAILY [facility] Last Admin: 02/07/20 09:09 Dose: 0.6 mg Documented by: Furosemide (Lasix) 80 mg PO BID@1000,1800 [facility] Last Admin: 02/07/20 09:13 Dose: Not Given Documented by: Guaifenesin (Robitussin) 20 ml PO Q4H PRN PRN PRN Reason: COUGH Heparin Sodium (Porcine) (Heparin Na) 5,000 unit SC Q8 [facility] Last Admin: 02/07/20 05:37 Dose: 5,000 unit Documented by: Sodium Chloride () 250 mls @ 15 mls/hr IV .[id number] PRN PRN Reason: Saline Flush Sodium Chloride () 250 mls @ 15 mls/hr IV .[id number] PRN PRN Reason: Additional IVPB Infusion Insulin Human Lispro (Humalog Kwikpen (Bkc)) 0 unit SC ACHS [facility]; Protocol Last Admin: 02/07/20 06:52 Dose: Not Given Documented by: Melatonin (Melatonin) 3 mg PO QHS PRN PRN PRN Reason: INSOMNIA Last Admin: 02/06/20 22:34 Dose: 3 mg Documented by: Metoprolol Tartrate (Lopressor (Beta Fany)) 25 mg PO BID [facility] Last Admin: 02/07/20 09:13 Dose: Not Given Documented by: Morphine Sulfate () 2 mg IV Q3H PRN PRN PRN Reason: Pain Score 6-10/10 Last Admin: 02/07/20 00:49 Dose: 2 mg Documented by: Nystatin (Mycostatin Powder) 1 applic TOPICAL TID [facility]; Protocol Last Admin: 02/07/20 05:38 Dose: 1 applicatio Documented by: Ondansetron HCl (Zofran) 4 mg IV Q8H PRN PRN PRN Reason: NAUSEA/VOMITING Last Admin: 02/02/20 07:00 Dose: 4 mg Documented by: Oxycodone HCl (Oxyir) 5 mg PO Q4H PRN PRN PRN Reason: Pain Score 4-5/10 Last Admin: 02/07/20 09:09 Dose: 5 mg Documented by: Prochlorperazine Edisylate (Compazine Iv) 5 mg IV Q4H PRN PRN PRN Reason: Breakthrough nausea/vomiting Sodium Chloride () 10 - 40 ml IV UD PRN PRN Reason: SALINE FLUSH Last Admin: 02/07/20 00:49 Dose: 10 ml Documented by: Throat Lozenges (Cepacol Sore Throat Lozenge) 1 lozenge MUCOUS MEM Q2H PRN PRN PRN Reason: SORE THROAT Discharge Diet: No Restrictions Call your doctor if you observe: Shortness of breath Home Medications: Medications to take at Discharge Aspirin [Aspirin, Baby] 81 mg PO DAILY@0800 03/10/14 colchicine 0.6 mg capsule 0.6 mg PO DAILY cap 05/22/17 Amiodarone HCl 100 mg PO DAILY 06/26/19 Simvastatin 20 mg PO QHS 06/26/19 albuterol sulfate 90 mcg/actuation aerosol inhaler 2 puff INHALATION Q4H PRN #18 g 12/04/19 Pulse Oximeter #1 ea 12/29/19 Acetaminophen [Tylenol Tablet] 650 mg PO Q6H PRN PRN tablet 02/07/20 Allopurinol [Zyloprim] 100 mg PO DAILY #30 tab 02/07/20 Furosemide [Lasix] 80 mg PO BID@1000,1800 #60 tab 02/07/20 Metoprolol Tartrate [Lopressor (beta fany)] 25 mg PO BID #60 tab 02/07/20 Following Prescriptions Were Given to Patient: Furosemide [Lasix] 80 mg PO BID@1000,1800 #60 tab Transmission Status: Pending to [facility] Metoprolol Tartrate [Lopressor (beta fany)] 25 mg PO BID #60 tab Transmission Status: Pending to [facility] Allopurinol [Zyloprim] 100 mg PO DAILY #30 tab Transmission Status: Pending to [facility] Primary Care Physician: Manuel Sandoval MD [Primary Care Provider] - Within 1 Week Please Follow Up With: [facility] When: every Sunday, Sunday, Sunday Disposition: Home Minutes spent on discharge:: 32 Patient Condition:: Good Medical Necessity - Tobacco Use Smoking Status: Former smoker Tobacco Use: Non-smoker Meaningful Use Info Meaningful Use Diagnoses (Choose all that apply): CHF - CHF TEOFILO/ARB ordered at discharge?: No Reason TEOFILO/ARB not ordered?: Worsening renal dysfunctn Documented LVEF (%): 55 Inpatient E&M: [id number] Disch Hosp
[2020-02-07 11:41] LABS: Bedside Glucose 140 mg/dL (70-110)
[2020-02-07 17:15] LABS: Bedside Glucose 84 mg/dL (70-110)
[2020-02-07] MEDS: Furosemide 80 MG Tablet PO (17:49)
--- NOTE | 2020-02-07 19:10 | DIALYSIS ---
HD x4 hours completed at 1840 on a 3K bath, 3rd treatment, tolerated well, UF 1400mL, accessed via right chest tunneled dialysis catheter, worked well
--- NOTE | 2020-02-10 15:18 | CASEMGMT ---
SAMI VELASCO Discharge Follow-up Phone Call: YULIET: Pablo Strata: 3 Call Date: 02/10/2020 Discharge Date: 02/07/2020 Time of Call: 1515 Admitting Diagnosis: QAMAR Discharge follow-up call placed to patient. Pt states he has felt tired since discharge. Pt states his mom is cooking and his brother is also helping him as needed. Pt states he attended hemodialysis yesterday and will be again tomorrow. States he is working on finding transportation to and from. States Mr. Orlando is transporting him tomorrow. Pt states he is good for now regarding future transportation needs. Pt states he did obtain his medications and that he made his [facility] ([facility]) and Dr. Manuel Sandoval (02/25). Pt denied any further questions or concerns regarding his discharge. Joe Hercules RN CM
== END 2020-02-07 22:27 | disposition home or self-care (01) | DRG 673 ==
LOC: ED 12:41 → PCU 16:18
PROVIDERS: Hospitalist; Internal Medicine Nephrology; Nurse Practitioner Family; Surgery; Admitting Provider Family Medicine; Emergency Provider Emergency Medicine; PCP Family Medicine
PROC: 0JH63XZ Insertion of Tunneled Vascular Access Device into Chest Subcutaneous Tissue and Fascia, Percutaneous Approach (ICD-10-PCS; principal; 2020-02-05 08:45)
DX: N17.9 Acute kidney failure, unspecified (principal); I50.43 Acute on chronic combined systolic (congestive) and diastolic (congestive) heart failure; I13.0 Hypertensive heart and chronic kidney disease with heart failure and stage 1 through stage 4 chronic kidney disease, or unspecified chronic kidney disease; Z68.42 Body mass index [BMI] 45.0-49.9, adult; L97.919 Non-pressure chronic ulcer of unspecified part of right lower leg with unspecified severity; R18.8 Other ascites; L97.822 Non-pressure chronic ulcer of other part of left lower leg with fat layer exposed; I27.20 Pulmonary hypertension, unspecified; I25.10 Atherosclerotic heart disease of native coronary artery without angina pectoris; N18.30 Chronic kidney disease, stage 3 unspecified; E66.01 Morbid (severe) obesity due to excess calories; E11.51 Type 2 diabetes mellitus with diabetic peripheral angiopathy without gangrene; E11.22 Type 2 diabetes mellitus with diabetic chronic kidney disease; R33.9 Retention of urine, unspecified; D64.9 Anemia, unspecified; I89.0 Lymphedema, not elsewhere classified; I83.019 Varicose veins of right lower extremity with ulcer of unspecified site; E78.5 Hyperlipidemia, unspecified; I25.5 Ischemic cardiomyopathy; Z87.891 Personal history of nicotine dependence; Z99.2 Dependence on renal dialysis; I25.2 Old myocardial infarction; Z95.810 Presence of automatic (implantable) cardiac defibrillator; Z95.1 Presence of aortocoronary bypass graft; E87.5 Hyperkalemia; I83.028 Varicose veins of left lower extremity with ulcer other part of lower leg
CPT/HCPCS: 11042; 29580; 36415; 71045; 74176; 76000; 80048; 80053; 80061; 80069; 80076; 81001; 82570; 82962; 83036; 83735; 83880; 84156; 84300; 84439; 84443; 84484; 85025; 85027; 85610; 85730; 86160; 86704; 86706; 87070; 87077; 87186; 87205; 87340; 87635; 87640; 90937; 93005; 93306; 97110; 97116; 97162; 97166; 97530; 97535; 97802; 99251; 99284; J7030; J7120; Q9957; A4216; C1750; G0257; G0463; J1940; J2405; U0003

== ENCOUNTER → 2020-02-10 10:22 | Outpatient (CLI) | payer MEDICARE, SELFPAY ==
[2020-02-05 08:03] VITALS: BMI 47.4
== END ==
PROVIDERS: PCP Family Medicine; Referring Provider Family Medicine; Visit Provider Family Medicine
DX: K90.9 Intestinal malabsorption, unspecified (principal)
CPT/HCPCS: 36415

== ENCOUNTER → 2020-02-11 13:56 | Outpatient (CLI) | payer MEDICARE, SELFPAY ==
[2020-02-05 08:03] VITALS: BMI 47.4
== END ==
LOC: MFPLAB 13:56 → LABSPEC 14:00
PROVIDERS: PCP Family Medicine; Referring Provider Family Medicine; Visit Provider Family Medicine
DX: K90.9 Intestinal malabsorption, unspecified (principal)
CPT/HCPCS: 87177; 87209

== ENCOUNTER → 2020-02-13 13:49 | Outpatient (CLI) | payer MEDICARE, SELFPAY ==
[2020-02-12 15:05] VITALS: BMI 47.4
== END ==
LOC: MFPLAB 13:50 → LABSPEC 13:50
PROVIDERS: PCP Family Medicine; Referring Provider Family Medicine; Visit Provider Family Medicine
DX: K90.9 Intestinal malabsorption, unspecified (principal)
CPT/HCPCS: 87177; 87209

== ENCOUNTER 2020-02-27 10:00 | Outpatient (RCR) | payer MEDICARE, SELFPAY ==
[2020-02-01 16:56] VITALS: BMI 47.4
[2020-02-05 00:14] VITALS: BP 124/73; PULSE 91; RESP 18; TEMP 36.2
[2020-02-12 15:05] VITALS: BP 117/60; PULSE 80; RESP 18; TEMP 36.2; BMI 47.4
--- NOTE | 2020-02-13 09:44 | PCM.WC.PN ---
(1) Venous stasis ulcer of left lower extremity Status: Acute Current Visit: Yes Code(s): I83.029 - Varicose veins of left lower extremity with ulcer of unspecified site; L97.929 - Non-pressure chronic ulcer of unspecified part of left lower leg with unspecified severity (2) Venous stasis ulcer of right lower extremity Status: Acute Current Visit: Yes Code(s): I83.019 - Varicose veins of right lower extremity with ulcer of unspecified site; L97.919 - Non-pressure chronic ulcer of unspecified part of right lower leg with unspecified severity (3) Atherosclerosis of coronary artery bypass graft without angina pectoris Status: Chronic Current Visit: No Qualifiers: Code(s): I25.810 - Atherosclerosis of coronary artery bypass graft(s) without angina pectoris Comment: CABG x6 ; Internal Mammary to Anterior Descending, SVG to diag branch of the Anterior descending,SVG to the lateral & posteriorlateral CX, SVG to Posterior Descending and continuation branches of the RCA 02/27/03 (4) Bilateral lower extremity edema Status: Chronic Current Visit: Yes Code(s): R60.0 - Localized edema (5) Chronic systolic congestive heart failure Status: Chronic Current Visit: No Code(s): I50.22 - Chronic systolic (congestive) heart failure (6) Essential hypertension Status: Chronic Current Visit: No Code(s): I10 - Essential (primary) hypertension (7) Lymphedema Status: Chronic Current Visit: No Code(s): I89.0 - Lymphedema, not elsewhere classified (8) Morbid obesity with BMI of 40.0-44.9, adult Status: Chronic Current Visit: No Code(s): E66.01 - Morbid (severe) obesity due to excess calories; Z68.41 - Body mass index [BMI]40.0-44.9, adult (9) Type 2 diabetes mellitus Status: Chronic Current Visit: No Qualifiers: Code(s): E11.9 - Type 2 diabetes mellitus without complications (10) Long-term use of high-risk medication Status: Inactive Current Visit: No Code(s): Z79.899 - Other care home (current) drug therapy Type of Wound Date of Service: 02/12/20 Chief Complaint: swelling of both legs and nonhealing ulcer to left lower extremity History of Wound: Patient is a pleasant 63-year-old male who goes by the name of Marilynn, who presents 11/27/2019 with complaint of swelling to bilateral lower extremities, and wounds to bilateral legs. There is a mild language barrier, and no translation is available at initial appointment. The patient reports that he has had swelling in his bilateral lower extremities for many years, as well as lymphedema. He is originally from [facility], and reports moving to the about 25 years ago. He reports his swelling has gotten worse in the last few months with now open wounds to his lower extremities for the last couple of months as well. He has been using triple antibiotic ointment to both legs, and wrapping with Kerlix. He has not been using any compression, he states that he followed up with the lymphedema clinic in the past and that they have provided him with compression that was too difficult to use. Patient has a PMH significant for type 2 diabetes mellitus, morbid obesity, CHF, pulmonary hypertension, SC, ischemic cardiomyopathy, and hyperlipidemia. He is currently managed by Dr. Sandoval at [facility] as his PCP. He is ambulatory with a cane. He does report living with family at home, who can aid in his care as needed. He denies any other acute concerns. He denies any systemic signs of infection at this time. Progress of Wound: 01/08/2020?patient returns to the clinic for new ulceration to his left lower extremity, this happened shortly after the 3M wraps were removed and patient was not compliant with his lymphedema management compression wraps at home. He does have CircAid's but does not always utilize them. He notes increasing drainage from the ulceration, however it is only been present now for approximately 5 or 6 days. He is following up routinely with [facility] lymphedema clinic as well. Denies any acute concerns. All other systems reviewed and negative with exception of those listed above. 01/15/2020?patient does note increased in drainage and foul smell from wounds, culture collected of the ulceration to the left lower extremity, otherwise no new concerns. No worsening swelling or systemic signs of infection at this time. 01/22/2020?patient notes increased drainage and foul smell, his recent cultures were reviewed and showed multiple bacteria which were susceptible to ciprofloxacin, patient tolerating the ciprofloxacin well Purapply am also applied today, otherwise no new concerns, anaerobes pending at this time. 01/29/2020?patient tolerating the Cipro well, he did grow anaerobes and will be placed on Augmentin twice daily for 10 days as well, he did well with the pure apply a.m. and his wound has diminished drastically in size. Otherwise no new concerns. He has been seen multiple times by [facility] lymphedema clinic and completed their physical therapy exercise program and has been utilizing CircAid's when not utilizing the compression prescribed from wound healing center and he is still having difficulty with managing his lymphedema. Do feel that he would benefit from the use of lymphedema pumps. 12/2019?patient recently hospitalized for acute kidney injury and CHF exacerbation, his furosemide was increased and he was placed on hemodialysis 3 times a week. Since then the patient notes that his swelling has dramatically improved in his lower extremities. He is doing well with compression. Given the delayed wound healing nushield was applied today.He also does have a new small wound on his right lower extremity which is a venous leg ulcer. - Physical Exam Vital Signs Temp Pulse Resp BP 97.2 F L 80 18 117/60 02/12/20 15:05 02/12/20 15:05 02/12/20 15:05 02/12/20 15:05 General: Alert, Oriented x3, Cooperative, No apparent distress HEENT: Atraumatic Oral: Moist Mucosa Lungs: Clear to auscultation, Normal air movement Cardiovascular: Regular rate, Regular Rhythm Abdomen: Soft, Non Tender Extremities: No clubbing, No cyanosis, Edema - +1 pitting edema bilateral lower extremities Skin: Ulcer/ Wound - See nursing documentation, slough and devitalized tissue present, no signs of infection at this time. Wound Measurements and Assessment WC - Nurse 1 - General Ulcer Measurement Start: 02/12/20 15:05 Freq: Status: Active Protocol: Activity Type Activity Date Activity User E-Sign Co-Sign Detail Recorded Client Recorded Date Recorded By Document 02/12/20 15: [facility] [id number] 02/12/20 15:[address] [facility] 02/12/20 15:05 Wound Center Nurse 1 [Ulcer Assessment] 5. R lateral calf -Combined with other wound No -Current Size (cm) - Length 1.1 -Current Size (cm) - Width 1.1 -Current Size (cm) - Depth 0.1 -Total Square Cm 1.21 -Photo Taken Yes -Tunneling No -Undermining/Tunneling No -Circular Undermining No -Exudate Amt Small -Exudate Type Serosanguineous -Wound Margin Flat & Intact -Granulation Amt Large (67-100%) -Granulation Quality Red -Slough/Fibrin Yes -Necrosis Amt Small (1-33%) -Necrotic Tissue Type Adherent Slough -Structure Exposed N/A -Texture (Nicolle-wound Skin Appearance) Assessed -Moisture (Nicolle-wound Skin Appearance Dry/Scaly ) -Color (Nicolel-wound Skin Appearance) Assessed -Temperature (Nicolle-wound Skin No Abnormality Appearance) (Pt Warm) -Tenderness on Palpation (Nicolle-wound No Skin Appearance) -Ulcer Cleansing Wound Cleanser -Foul Odor after Cleansing No -Anesthetic Used 5% Lidocaine Gel #4 LLE Circ -Combined with other wound No -Current Size (cm) - Length 0.1 -Current Size (cm) - Width 0.1 -Current Size (cm) - Depth 0.1 -Total Square Cm 0.01 -Tunneling No -Undermining/Tunneling No -Circular Undermining No -Exudate Amt None Present -Wound Margin Flat & Intact -Granulation Amt Large (67-100%) -Granulation Quality [address] -Slough/Fibrin Yes -Necrosis Amt Small (1-33%) -Necrotic Tissue Type Adherent Slough -Structure Exposed N/A -Texture (Nicolle-wound Skin Appearance) Assessed -Moisture (Nicolle-wound Skin Appearance Assessed,Dry/ ) Scaly -Color (Nicolle-wound Skin Appearance) Assessed -Temperature (Nicolle-wound Skin No Abnormality Appearance) (Pt Warm) -Tenderness on Palpation (Nicolle-wound No Skin Appearance) -Ulcer Cleansing Wound Cleanser -Foul Odor after Cleansing No #3 RLE Med -Combined with other wound No -Current Size (cm) - Length 0.1 -Current Size (cm) - Width 0.1 -Current Size (cm) - Depth 0.1 -Total Square Cm 0.01 -Tunneling No -Undermining/Tunneling No -Circular Undermining No -Exudate Amt None Present -Wound Margin Flat & Intact -Granulation Amt Large (67-100%) -Granulation Quality [address],Red -Slough/Fibrin Yes -Necrosis Amt Small (1-33%) -Necrotic Tissue Type Adherent Slough -Structure Exposed N/A -Texture (Nicolle-wound Skin Appearance) Assessed -Moisture (Nicolle-wound Skin Appearance Dry/Scaly ) -Color (Nicolle-wound Skin Appearance) Assessed -Temperature (Nicolle-wound Skin No Abnormality Appearance) (Pt Warm) -Tenderness on Palpation (Nicolle-wound No Skin Appearance) -Ulcer Cleansing Wound Cleanser -Foul Odor after Cleansing No [Edema Assessment] -Right Calf (cm) 47 -Right Ankle (cm) 32.2 -Left Calf (cm) 43.1 -Left Ankle (cm) 30.2 WC - Nurse 2 - General Ulcer CM Notes Start: 02/12/20 15:05 Freq: Status: Active Protocol: Activity Type Activity Date Activity User E-Sign Co-Sign Detail Recorded Client Recorded Date Recorded By Document 02/12/20 15:35 MW [id number] 02/12/20 15:48 MW 02/12/20 15:35 Wound Center Nurse 2 [Procedure/Treatment] 5. R lateral calf -Time 15:41 -Correct Patient Yes -Correct Side, Site, Position Yes -Correct Procedure Yes -Procedure Performed Yes -Type of Procedure Debridement -Clinical Debridement Subcutaneous -Tissue Removed Subcutaneous -Post Debridement (cm) - Length 1.3 -Post Debridement (cm) - Width 1.3 -Post Debridement (cm) - Depth 0.1 -Total Square (Post) (cm) 1.69 -Area of Debridement (cm) - Length 1.3 -Area of Debridement (cm) - Width 1.3 -Total Square (Area) (cm) 1.69 -Tunneling No -Undermining/Tunneling No -Circular Undermining No -Wound/Ulcer Outcome Not Healed -Ulcer Cleansing Rinsed/ Irrigated with Saline -Foul Odor after Cleansing No -Bioengineered Tissue No -Bleeding Controlled with Pressure -Offloading No -Treatment Response Procedure Tolerated Well -Debridement - Subq, 1st 20sq cm Yes #4 LLE Circ -Time 15:42 -Correct Patient Yes -Correct Side, Site, Position Yes -Correct Procedure Yes -Procedure Performed Yes -Type of Procedure Debridement -Clinical Debridement Subcutaneous -Tissue Removed Subcutaneous -Post Debridement (cm) - Length 1.5 -Post Debridement (cm) - Width 1.5 -Post Debridement (cm) - Depth 0.1 -Total Square (Post) (cm) 2.25 -Area of Debridement (cm) - Length 1.5 -Area of Debridement (cm) - Width 1.5 -Total Square (Area) (cm) 2.25 -Tunneling No -Undermining/Tunneling No -Circular Undermining No -Wound/Ulcer Outcome Not Healed -Ulcer Cleansing Rinsed/ Irrigated with Saline -Foul Odor after Cleansing No -Bioengineered Tissue Yes -Type of Bioengineered Tissue NuShield Disc -Expiration Date 07/19/24 -Product Lot Number [id number] -Percent Used 100 -Saline Lot Number [id number] -Bleeding Controlled with Pressure -Offloading No -Debridement - Subq, 1st 20sq cm No -Apply Skin Sub - 1st 25 sq cm - Legs 1 -NuShield 16mm Disc 2 Query Text:16mm = 2 #3 RLE Med -Time 15:43 -Correct Patient Yes -Correct Side, Site, Position Yes -Correct Procedure Yes -Procedure Performed No -Post Debridement (cm) - Length 0 -Post Debridement (cm) - Width 0 -Post Debridement (cm) - Depth 0 -Total Square (Post) (cm) 0 -Wound/Ulcer Outcome Healed- Epithelialized [See Physician Procedure note for Specifics] Pain Scale: 0-10 Numeric [Pain] -Is Patient Pain Free? Yes WC - Nurse 3 - General Ulcer D/C NN Start: 02/12/20 15:05 Freq: Status: Active Protocol: Activity Type Activity Date Activity User E-Sign Co-Sign Detail Recorded Client Recorded Date Recorded By Document 02/12/20 15:49 MW [id number] 02/12/20 15:51 MW 02/12/20 15:49 Wound Care Nurse 3 [Wound Dressing] 5. R lateral calf -Ulcer Cleansing Rinsed/ Irrigated with Saline -Foul Odor after Cleansing No -Negative Pressure Wound Therapy N/A -Primary Dressing Applied Aquacel Extra -Aquacel Extra 1 #4 LLE Circ -Ulcer Cleansing Not Cleansed -Foul Odor after Cleansing No -Negative Pressure Wound Therapy N/A -Primary Dressing Covered/Secured Dry Gauze with [Compression Applied] Right -Lotion applied to leg before No compression wrap -Multi-Layered Wrap Application Multi-Layer Comp - Right ($ ) Left -Lotion applied to leg before No compression wrap -Multi-Layered Wrap Application Multi-Layer Comp - Left ($) [Post Procedure Tolerated] -Treatment Response Procedure Tolerated Well Pain Scale: 0-10 Numeric [Pain] -Is Patient Pain Free? Yes WC - Visit Discharge [Visit Discharge Information] -Discharge Condition Stable -Ambulatory Status Ambulatory -Transportation Private Auto -Accompanied by [facility] -Medication Reconcilliation completed No & provided to patient/care provider -Clinical Summary of Care Provided Yes Neurological: Neuro grossly intact Psych/Mental Status: Normal Affect, Appropriate, Alert and oriented to time, place, person, mood and affect Debridement Note Post-Debridement Measurements/Treatment - Nurse 2 - General Ulcer CM Notes Start: 02/12/20 15:05 Freq: Status: Active Protocol: Activity Type Activity Date Activity User E-Sign Co-Sign Detail Recorded Client Recorded Date Recorded By Document 02/12/20 15:35 MW [id number] 02/12/20 15:48 MW 02/12/20 15:35 Wound Center Nurse 2 5. R lateral calf -Time 15:41 -Correct Patient Yes -Correct Side, Site, Position Yes -Correct Procedure Yes -Procedure Performed Yes -Type of Procedure Debridement -Clinical Debridement Subcutaneous -Tissue Removed Subcutaneous -Post Debridement (cm) - Length 1.3 -Post Debridement (cm) - Width 1.3 -Post Debridement (cm) - Depth 0.1 -Total Square (Post) (cm) 1.69 -Area of Debridement (cm) - Length 1.3 -Area of Debridement (cm) - Width 1.3 -Total Square (Area) (cm) 1.69 -Tunneling No -Undermining/Tunneling No -Circular Undermining No -Wound/Ulcer Outcome Not Healed -Ulcer Cleansing Rinsed/ Irrigated with Saline -Foul Odor after Cleansing No -Bioengineered Tissue No -Bleeding Controlled with Pressure -Offloading No -Treatment Response Procedure Tolerated Well -Debridement - Subq, 1st 20sq cm Yes #4 LLE Circ -Time 15:42 -Correct Patient Yes -Correct Side, Site, Position Yes -Correct Procedure Yes -Procedure Performed Yes -Type of Procedure Debridement -Clinical Debridement Subcutaneous -Tissue Removed Subcutaneous -Post Debridement (cm) - Length 1.5 -Post Debridement (cm) - Width 1.5 -Post Debridement (cm) - Depth 0.1 -Total Square (Post) (cm) 2.25 -Area of Debridement (cm) - Length 1.5 -Area of Debridement (cm) - Width 1.5 -Total Square (Area) (cm) 2.25 -Tunneling No -Undermining/Tunneling No -Circular Undermining No -Wound/Ulcer Outcome Not Healed -Ulcer Cleansing Rinsed/ Irrigated with Saline -Foul Odor after Cleansing No -Bioengineered Tissue Yes -Type of Bioengineered Tissue NuShield Disc -Expiration Date 07/19/24 -Product Lot Number [id number] -Percent Used 100 -Saline Lot Number [id number] -Bleeding Controlled with Pressure -Offloading No -Debridement - Subq, 1st 20sq cm No -Apply Skin Sub - 1st 25 sq cm - Legs 1 -NuShield 16mm Disc 2 Query Text:16mm = 2 #3 RLE Med -Time 15:43 -Correct Patient Yes -Correct Side, Site, Position Yes -Correct Procedure Yes -Procedure Performed No -Post Debridement (cm) - Length 0 -Post Debridement (cm) - Width 0 -Post Debridement (cm) - Depth 0 -Total Square (Post) (cm) 0 -Wound/Ulcer Outcome Healed- Epithelialized Pain Scale: 0-10 Numeric Is Patient Pain Free? Yes - Nurse 3 - General Ulcer D/C NN Start: 02/12/20 15:05 Freq: Status: Active Protocol: Activity Type Activity Date Activity User E-Sign Co-Sign Detail Recorded Client Recorded Date Recorded By Document 02/12/20 15:49 MW [id number] 02/12/20 15:51 MW 02/12/20 15:49 Wound Care Nurse 3 5. R lateral calf -Ulcer Cleansing Rinsed/ Irrigated with Saline -Foul Odor after Cleansing No -Negative Pressure Wound Therapy N/A -Primary Dressing Applied Aquacel Extra -Aquacel Extra 1 #4 LLE Circ -Ulcer Cleansing Not Cleansed -Foul Odor after Cleansing No -Negative Pressure Wound Therapy N/A -Primary Dressing Covered/Secured with Dry Gauze Right -Lotion applied to leg before No compression wrap -Multi-Layered Wrap Application Multi-Layer Comp - Right ($ ) Left -Lotion applied to leg before No compression wrap -Multi-Layered Wrap Application Multi-Layer Comp - Left ($) Treatment Response Procedure Tolerated Well Pain Scale: 0-10 Numeric Is Patient Pain Free? Yes - Visit Discharge Discharge Condition Stable Ambulatory Status Ambulatory Transportation Private Auto Accompanied by [facility] Medication Reconcilliation completed & No provided to patient/care provider Clinical Summary of Care Provided Yes Wound debrided: Bilateral venous leg ulcers Type of Debridement: Excisional debridement Anesthesia Used: 5% Lidocaine Gel Depth: Down to and including healthy tissue, in the subcutaneous layer Percentage of wound debrided: 100 Instrument Used: 3mm curette Tissue Removed: Slough and devitalized tissue Severity: Fat Layer Exposed Amount of bleeding with debridement: Mild Bleeding Controlled with: Pressure Patient tolerated procedure well Assessment/Plan Active Problems (Last Reviewed 02/01/20 @ 15:[address] Ciro Loyola MD) Bilateral lower extremity edema (Chronic) Venous stasis ulcer of right lower extremity (Acute) Venous stasis ulcer of left lower extremity (Acute) Assessment: Venous leg ulcer left lower extremity. Lymphatic filariasis, chronic, suspected. Lymphedema, chronic. Bilateral lower extremity edema, chronic. PVD, chronic. Morbid obesity, chronic Plan: The patient was seen and examined at the wound center today and was updated on the plan of care. Patient's wound care will consist of bilateral 3m wraps for compression, nushield #1 Was applied today to the left VLU, 100% was utilized, it was secured with Adaptic and Steri's. Aquacell extra over top of all other ulcers. He will continue to follow-up with lymphedema clinic. Patient educated on the importance of diet on wound healing and instructed to increase protein and vitamin C intake. Patient verbalized understanding. Patient has been advised to elevate lower extremities as much as possible. Elevation is to be implemented during daytime hours and legs are to be elevated to heart level, or higher, as much as possible. Prolonged idle sitting has been discouraged. Activity and ambulation has been encouraged. Venous Doppler study completed 06/03/2019: Right great saphenous vein is absent, having been previously harvested; left great saphenous vein incompetent below the knee; right accessory saphenous vein and right mid calf is incompetent; otherwise normal venous Doppler study, see full report for further details. Arterial studies completed 06/03/2019: No evidence of significant arterial occlusive disease in bilateral lower extremities, see full report for further details. Note: [employer] speech recognition brushing machine operator software was used to create portions of this document. Sound-alike and misspelled words, as well as other brushing machine operator errors may be contained in the documentation. [id number]: [id number] Skin sub graft trnk/arm/leg
[2020-02-17 13:27] VITALS: BP 113/59; PULSE 75; RESP 20; TEMP 36.7; BMI 47.4
[2020-02-19 15:10] VITALS: BP 136/63; RESP 18; TEMP 36.3; BMI 47.4
--- NOTE | 2020-02-19 21:05 | PCM.WC.PN ---
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 Status: Chronic Qualifiers: Code(s): I25.810 - Atherosclerosis of coronary artery bypass graft(s) without angina pectoris Comment: CABG x6 ; Internal Mammary to Anterior Descending, SVG to diag branch of the Anterior descending,SVG to the lateral & posteriorlateral CX, SVG to Posterior Descending and continuation branches of the RCA 02/27/03 (4) Bilateral lower extremity edema Status: Chronic Code(s): R60.0 - Localized edema (5) Chronic systolic congestive heart failure Status: Chronic Code(s): I50.22 - Chronic systolic (congestive) heart failure (6) Essential hypertension Status: Chronic Code(s): I10 - Essential (primary) hypertension (7) Lymphedema Status: Chronic Code(s): I89.0 - Lymphedema, not elsewhere classified (8) Morbid obesity with BMI of 40.0-44.9, adult Status: Chronic Code(s): E66.01 - Morbid (severe) obesity due to excess calories; Z68.41 - Body mass index [BMI]40.0-44.9, adult (9) Type 2 diabetes mellitus Status: Chronic Qualifiers: Code(s): E11.9 - Type 2 diabetes mellitus without complications (10) Long-term use of high-risk medication Status: Inactive Code(s): Z79.899 - Other supervisor intermediates (current) drug therapy Type of Wound Date of Service: 02/19/20 Chief Complaint: swelling of both legs and nonhealing ulcer to left lower extremity History of Wound: Patient is a pleasant 63-year-old male who goes by the name of Marilynn, who presents 11/27/2019 with complaint of swelling to bilateral lower extremities, and wounds to bilateral legs. There is a mild language barrier, and no translation is available at initial appointment. The patient reports that he has had swelling in his bilateral lower extremities for many years, as well as lymphedema. He is originally from [facility], and [place] moving to the [place] about 25 years ago. He reports his swelling has gotten worse in the last few months with now open wounds to his lower extremities for the last couple of months as well. He has been using triple antibiotic ointment to both legs, and wrapping with Kerlix. He has not been using any compression, he states that he followed up with the lymphedema clinic in the past and that they have provided him with compression that was too difficult to use. Patient has a PMH significant for type 2 diabetes mellitus, morbid obesity, CHF, pulmonary hypertension, [place], ischemic cardiomyopathy, and hyperlipidemia. He is currently managed by Dr. Sandoval at [facility] as his PCP. He is ambulatory with a cane. He does report living with family at home, who can aid in his care as needed. He denies any other acute concerns. He denies any systemic signs of infection at this time. Progress of Wound: 01/08/2020?patient returns to the clinic for new ulceration to his left lower extremity, this happened shortly after the 3M wraps were removed and patient was not compliant with his lymphedema management compression wraps at home. He does have CircAid's but does not always utilize them. He notes increasing drainage from the ulceration, however it is only been present now for approximately 5 or 6 days. He is following up routinely with [facility] lymphedema clinic as well. Denies any acute concerns. All other systems reviewed and negative with exception of those listed above. 01/15/2020?patient does note increased in drainage and foul smell from wounds, culture collected of the ulceration to the left lower extremity, otherwise no new concerns. No worsening swelling or systemic signs of infection at this time. 01/22/2020?patient notes increased drainage and foul smell, his recent cultures were reviewed and showed multiple bacteria which were susceptible to ciprofloxacin, patient tolerating the ciprofloxacin well Purapply am also applied today, otherwise no new concerns, anaerobes pending at this time. 01/29/2020?patient tolerating the Cipro well, he did grow anaerobes and will be placed on Augmentin twice daily for 10 days as well, he did well with the pure apply a.m. and his wound has diminished drastically in size. Otherwise no new concerns. He has been seen multiple times by [facility] lymphedema clinic and completed their physical therapy exercise program and has been utilizing CircAid's when not utilizing the compression prescribed from wound healing center and he is still having difficulty with managing his lymphedema. Do feel that he would benefit from the use of lymphedema pumps. 02/12/2020?patient recently hospitalized for acute kidney injury and CHF exacerbation, his furosemide was increased and he was placed on hemodialysis 3 times a week. Since then the patient notes that his swelling has dramatically improved in his lower extremities. He is doing well with compression. Given the delayed wound healing nushield was applied today.He also does have a new small wound on his right lower extremity which is a venous leg ulcer. 02/19/20-no new concerns - Physical Exam Vital Signs Temp Pulse Resp BP 97.4 F L 75 18 136/63 H 02/19/20 15:10 02/17/20 13:27 02/19/20 15:10 02/19/20 15:10 General: Alert, Oriented x3, Cooperative, No apparent distress HEENT: Atraumatic Oral: Moist Mucosa Lungs: Clear to auscultation, Normal air movement Cardiovascular: Regular rate, Regular Rhythm Abdomen: Soft, Non Tender Extremities: No clubbing, No cyanosis, No edema Skin: Ulcer/ Wound - see nursing documentation, no debridement, swelling improved to 1+ pitting BLLE Musculoskeletal: No Tenderness to Palpation of Joints or Extremities Neurological: Neuro grossly intact Psych/Mental Status: Normal Affect, Appropriate, Alert and oriented to time, place, person, mood and affect Debridement Note Post-Debridement Measurements/Treatment WC - Nurse 2 - General Ulcer CM Notes Start: 02/12/20 15:05 Freq: Status: Active Protocol: Activity Type Activity Date Activity User E-Sign Co-Sign Detail Recorded Client Recorded Date Recorded By Document 02/12/20 15:35 MW [id number] 02/12/20 15:48 MW Document 02/19/20 15:46 MW [id number] 02/19/20 15:48 MW 02/12/20 02/19/20 15:35 15:46 Wound Center Nurse 2 6. R lateral calf -Time 15:41 15:46 -Correct Patient Yes Yes -Correct Side, Site, Position Yes Yes -Correct Procedure Yes Yes -Procedure Performed Yes No -Type of Procedure Debridement -Clinical Debridement Subcutaneous -Tissue Removed Subcutaneous -Post Debridement (cm) - Length 1.3 0 -Post Debridement (cm) - Width 1.3 0 -Post Debridement (cm) - Depth 0.1 0 -Total Square (Post) (cm) 1.69 0 -Area of Debridement (cm) - Length 1.3 -Area of Debridement (cm) - Width 1.3 -Total Square (Area) (cm) 1.69 -Tunneling No -Undermining/Tunneling No -Circular Undermining No -Wound/Ulcer Outcome Not Healed Healed- Epithelialized -Ulcer Cleansing Rinsed/ Irrigated with Saline -Foul Odor after Cleansing No -Bioengineered Tissue No -Bleeding Controlled with Pressure -Offloading No -Treatment Response Procedure Tolerated Well -Debridement - Subq, 1st 20sq cm Yes #5 LLE Circ -Time 15:42 15:47 -Correct Patient Yes Yes -Correct Side, Site, Position Yes Yes -Correct Procedure Yes Yes -Procedure Performed Yes No -Type of Procedure Debridement -Clinical Debridement Subcutaneous -Tissue Removed Subcutaneous -Post Debridement (cm) - Length 1.5 0.1 -Post Debridement (cm) - Width 1.5 0.1 -Post Debridement (cm) - Depth 0.1 0.1 -Total Square (Post) (cm) 2.25 0.01 -Area of Debridement (cm) - Length 1.5 -Area of Debridement (cm) - Width 1.5 -Total Square (Area) (cm) 2.25 -Tunneling No No -Undermining/Tunneling No No -Circular Undermining No No -Wound/Ulcer Outcome Not Healed Not Healed -Ulcer Cleansing Rinsed/ Not Cleansed Irrigated with Saline -Foul Odor after Cleansing No No -Bioengineered Tissue Yes No -Type of Bioengineered Tissue NuShield Disc -Expiration Date 07/19/24 -Product Lot Number [id number] -Percent Used 100 -Saline Lot Number [id number] -Bleeding Controlled with Pressure NA -Offloading No No -Debridement - Subq, 1st 20sq cm No -Apply Skin Sub - 1st 25 sq cm - Legs 1 -NuShield 16mm Disc 2 #3 RLE Med -Time 15:43 -Correct Patient Yes -Correct Side, Site, Position Yes -Correct Procedure Yes -Procedure Performed No -Post Debridement (cm) - Length 0 -Post Debridement (cm) - Width 0 -Post Debridement (cm) - Depth 0 -Total Square (Post) (cm) 0 -Wound/Ulcer Outcome Healed- Epithelialized Pain Scale: 0-10 Numeric Is Patient Pain Free? Yes Yes - Nurse 3 - General Ulcer D/C NN Start: 02/12/20 15:05 Freq: Status: Active Protocol: Activity Type Activity Date Activity User E-Sign Co-Sign Detail Recorded Client Recorded Date Recorded By Document 02/12/20 15:49 MW [id number] 02/12/20 15:51 MW Document 02/17/20 13:27 DL [id number] 02/17/20 13:32 DL 02/12/20 02/17/20 15:49 13:27 Wound Care Nurse 3 6. R lateral calf -Ulcer Cleansing Rinsed/ Wound Cleanser Irrigated with Saline -Foul Odor after Cleansing No No -Negative Pressure Wound Therapy N/A -Primary Dressing Applied Aquacel Extra Aquacel AG 4x4 -Primary Dressing Covered/Secured with Dry Gauze & Roll Gauze, Secured with Tape -Aquacel Extra 1 -Aquacel AG 4x4 1 #5 LLE Circ -Ulcer Cleansing Not Cleansed Wound Cleanser -Foul Odor after Cleansing No No -Negative Pressure Wound Therapy N/A -Other Dressing Nushield -Primary Dressing Covered/Secured with Dry Gauze -Other Covering Adaptic/steri strips Right -Lotion applied to leg before No compression wrap -Multi-Layered Wrap Application Multi-Layer Multi-Layer Comp - Right ($ Comp - Right ($ ) ) Left -Lotion applied to leg before No compression wrap -Multi-Layered Wrap Application Multi-Layer Comp - Left ($) Treatment Response Procedure Procedure Tolerated Well Tolerated Well Vital Signs Temperature (97.8 F-99.1 F) 98.1 F Temperature Source Temporal Pulse Rate (60-100) 75 Respiratory Rate (12-18) 20 H Respiratory rate source Observation Blood Pressure (90/60-120/80) 113/59 L Blood Pressure Mean (mm Hg) 77 Pain Scale: 0-10 Numeric Is Patient Pain Free? Yes Yes - Visit Discharge Discharge Condition Stable Stable Ambulatory Status Ambulatory Ambulatory,Cane Transportation Private Auto Private Auto Accompanied by [facility] Medication Reconcilliation completed & No provided to patient/care provider Clinical Summary of Care Provided Yes Assessment/Plan Assessment: Venous leg ulcer left lower extremity. Lymphatic filariasis, chronic, suspected. Lymphedema, chronic. Bilateral lower extremity edema, chronic. PVD, chronic. Morbid obesity, chronic Plan: The patient was seen and examined at the wound center today and was updated on the plan of care. Patient's wound care will consist of bilateral 3m wraps for compression,adaptic over top of all healed ulcers. He will continue to follow-up with lymphedema clinic. Patient educated on the importance of diet on wound healing and instructed to increase protein and vitamin C intake. Patient verbalized understanding. Patient has been advised to elevate lower extremities as much as possible. Elevation is to be implemented during daytime hours and legs are to be elevated to heart level, or higher, as much as possible. Prolonged idle sitting has been discouraged. Activity and ambulation has been encouraged. Venous Doppler study completed 06/03/2019: Right great saphenous vein is absent, having been previously harvested; left great saphenous vein incompetent below the knee; right accessory saphenous vein and right mid calf is incompetent; otherwise normal venous Doppler study, see full report for further details. Arterial studies completed 06/03/2019: No evidence of significant arterial occlusive disease in bilateral lower extremities, see full report for further details. Note: [employer] speech recognition teacher's assistant software was used to create portions of this document. Sound-alike and misspelled words, as well as other teacher's assistant errors may be contained in the documentation. Office Visits / Consults: [id number] [id number] Est
[2020-02-24 13:21] VITALS: BP 110/61; PULSE 73; RESP 16; TEMP 37.2; BMI 47.4
[2020-02-27 09:47] VITALS: BP 121/74; PULSE 72; RESP 18; TEMP 36.2; BMI 47.4
--- NOTE | 2020-02-27 12:39 | PCM.WC.PN ---
(1) Venous stasis ulcer of left lower extremity Status: Resolved Code(s): I83.029 - Varicose veins of left lower extremity with ulcer of unspecified site; L97.929 - Non-pressure chronic ulcer of unspecified part of left lower leg with unspecified severity (2) Venous stasis ulcer of right lower extremity Status: Resolved Code(s): I83.019 - Varicose veins of right lower extremity with ulcer of unspecified site; L97.919 - Non-pressure chronic ulcer of unspecified part of right lower leg with unspecified severity (3) Atherosclerosis of coronary artery bypass graft without angina pectoris Status: Chronic Qualifiers: Code(s): I25.810 - Atherosclerosis of coronary artery bypass graft(s) without angina pectoris Comment: CABG x6 ; Internal Mammary to Anterior Descending, SVG to diag branch of the Anterior descending,SVG to the lateral & posteriorlateral CX, SVG to Posterior Descending and continuation branches of the RCA 02/27/03 (4) Bilateral lower extremity edema Status: Chronic Code(s): R60.0 - Localized edema (5) Chronic systolic congestive heart failure Status: Chronic Code(s): I50.22 - Chronic systolic (congestive) heart failure (6) Essential hypertension Status: Chronic Code(s): I10 - Essential (primary) hypertension (7) Lymphedema Status: Chronic Code(s): I89.0 - Lymphedema, not elsewhere classified (8) Morbid obesity with BMI of 40.0-44.9, adult Status: Chronic Code(s): E66.01 - Morbid (severe) obesity due to excess calories; Z68.41 - Body mass index [BMI]40.0-44.9, adult Type of Wound Date of Service: 02/27/20 Chief Complaint: swelling of both legs and nonhealing ulcer to left lower extremity History of Wound: Patient is a pleasant 63-year-old male who goes by the name of Marilynn, who presents 11/27/2019 with complaint of swelling to bilateral lower extremities, and wounds to bilateral legs. There is a mild language barrier, and no translation is available at initial appointment. The patient reports that he has had swelling in his bilateral lower extremities for many years, as well as lymphedema. He is [place] from [facility], and reports moving to the about 25 years ago. He reports his swelling has gotten worse in the last few months with now open wounds to his lower extremities for the last couple of months as well. He has been using triple antibiotic ointment to both legs, and wrapping with Kerlix. He has not been using any compression, he states that he followed up with the lymphedema clinic in the past and that they have provided him with compression that was too difficult to use. Patient has a PMH significant for type 2 diabetes mellitus, morbid obesity, CHF, pulmonary hypertension, [place], ischemic cardiomyopathy, and hyperlipidemia. He is currently managed by Dr. Sandoval at [facility] as his PCP. He is ambulatory with a cane. He does report living with family at home, who can aid in his care as needed. He denies any other acute concerns. He denies any systemic signs of infection at this time. Progress of Wound: 01/08/2020?patient returns to the clinic for new ulceration to his left lower extremity, this happened shortly after the 3M wraps were removed and patient was not compliant with his lymphedema management compression wraps at home. He does have CircAid's but does not always utilize them. He notes increasing drainage from the ulceration, however it is only been present now for approximately 5 or 6 days. He is following up routinely with [facility] lymphedema clinic as well. Denies any acute concerns. All other systems reviewed and negative with exception of those listed above. 01/15/2020?patient does note increased in drainage and foul smell from wounds, culture collected of the ulceration to the left lower extremity, otherwise no new concerns. No worsening swelling or systemic signs of infection at this time. 01/22/2020?patient notes increased drainage and foul smell, his recent cultures were reviewed and showed multiple bacteria which were susceptible to ciprofloxacin, patient tolerating the ciprofloxacin well Purapply am also applied today, otherwise no new concerns, anaerobes pending at this time. 01/29/2020?patient tolerating the Cipro well, he did grow anaerobes and will be placed on Augmentin twice daily for 10 days as well, he did well with the pure apply a.m. and his wound has diminished drastically in size. Otherwise no new concerns. He has been seen multiple times by [facility] lymphedema clinic and completed their physical therapy exercise program and has been utilizing CircAid's when not utilizing the compression prescribed from wound healing center and he is still having difficulty with managing his lymphedema. Do feel that he would benefit from the use of lymphedema pumps. 02/12/2020?patient recently hospitalized for acute kidney injury and CHF exacerbation, his furosemide was increased and he was placed on hemodialysis 3 times a week. Since then the patient notes that his swelling has dramatically improved in his lower extremities. He is doing well with compression. Given the delayed wound healing nushield was applied today.He also does have a new small wound on his right lower extremity which is a venous leg ulcer. 02/19/20-no new concerns. 02/27/2020- Ulcers of bilateral lower extremities are healed. Patient has an area of erythema and warmth to his right hand, with no open wound. He states he was bit by a mosquito, but there is no notable site. The patient denies any fever, chills, nausea, vomiting, or diarrhea. - Physical Exam Vital Signs Temp Pulse Resp BP 97.1 F L 72 18 121/74 H 02/27/20 09:47 02/27/20 09:47 02/27/20 09:47 02/27/20 09:47 General: Alert, Cooperative, No apparent distress HEENT: Atraumatic, Normocephalic Oral: Moist Mucosa Neck: Supple Lungs: Normal air movement Cardiovascular: Regular rate Abdomen: Obese Skin: Ulcer/ Wound - Ulcers of bilateral lower extremities are healed today, Rash Present - Erythema and swelling of right hand with no open wound or notable site of injury. Warm to palpation. Wound Measurements and Assessment WC - Nurse 1 - General Ulcer Measurement Start: 02/12/20 15:05 Freq: Status: Active Protocol: Activity Type Activity Date Activity User E-Sign Co-Sign Detail Recorded Client Recorded Date Recorded By Document 02/24/20 13:21 DL [id number] 02/24/20 13:27 DL Document 02/27/20 09:47 BMF [id number] 02/27/20 09:48 BMF 02/24/20 02/27/20 13:21 09:47 [Ulcer Assessment] #5 LLE Circ -Combined with other wound No -Current Size (cm) - Length 0.1 -Current Size (cm) - Width 0.1 -Current Size (cm) - Depth 0.1 -Total Square Cm 0.01 -Epithelialization Large 67-100% -Texture (Nicolle-wound Skin Appearance) Assessed, Scarring -Moisture (Nicolle-wound Skin Appearance Assessed,Dry/ ) Scaly -Color (Nicolle-wound Skin Appearance) Assessed -Temperature (Nicolle-wound Skin No Abnormality Appearance) (Pt Warm) -Tenderness on Palpation (Nicolle-wound No Skin Appearance) Wound Center Nurse 1 [Edema Assessment] -Lower Limb Edema Present Yes -Right Calf (cm) 36.8 40 -Right Ankle (cm) 27.2 28.7 -Left Calf (cm) 35.5 39.6 -Left Ankle (cm) 26.4 28 WC - Nurse 3 - General Ulcer D/C NN Start: 02/12/20 15:05 Freq: Status: Active Protocol: Activity Type Activity Date Activity User E-Sign Co-Sign Detail Recorded Client Recorded Date Recorded By Document 02/24/20 13:21 DL [id number] 02/24/20 13:27 DL Document 02/27/20 10:24 BMF [id number] 02/27/20 10:25 BMF 02/24/20 02/27/20 13:21 10:24 Vital Signs [Temperature Protocol: VS] -Temperature (97.8 F-99.1 F) 98.9 F -Temperature Source Temporal [Pulse] -Pulse Rate (60-100) 73 -Pulse Location Monitor [Respirations] -Respiratory Rate (12-18) 16 -Respiratory rate source Observation -Oxygen Delivery Method Room Air [Blood Pressure] -Blood Pressure (90/60-120/80) 110/61 -Blood Pressure Mean (mm Hg) 77 -Source Monitor -Position Sitting -Blood Pressure Location Left Forearm [Comments] -Comment NO DEBRIDEMENT TODAY. HEALED Pain Scale: 0-10 Numeric [Pain] -Is Patient Pain Free? Yes Yes Wound Care Nurse 3 [Wound Dressing] #5 LLE Circ -Ulcer Cleansing soapy water -Foul Odor after Cleansing No -Primary Dressing Applied Other -Other Dressing unna boot [Compression Applied] Right -Multi-Layered Wrap Application Unna Boot - Bilateral ($) -Compression Wrap Amando Wrap -Unna Boots (Bilat) ($) 2 Left -Compression Wrap Amando Wrap -Other unna boot applied to left and right legs [Post Procedure Tolerated] -Treatment Response Procedure Procedure Tolerated Well Tolerated Well WC - Visit Discharge [Visit Discharge Information] -Discharge Condition Stable Stable -Ambulatory Status Ambulatory,Cane Ambulatory,Cane -Transportation transport Private Auto Neurological: Neuro grossly intact Psych/Mental Status: Normal Affect, Appropriate Debridement Note Post-Debridement Measurements/Treatment WC - Nurse 2 - General Ulcer CM Notes Start: 02/12/20 15:05 Freq: Status: Active Protocol: Activity Type Activity Date Activity User E-Sign Co-Sign Detail Recorded Client Recorded Date Recorded By Document 02/12/20 15:35 MW [id number] 02/12/20 15:48 MW Document 02/19/20 15:46 MW [id number] 02/19/20 15:48 MW 02/12/20 02/19/20 15:35 15:46 Wound Center Nurse 2 6. R lateral calf -Time 15:41 15:46 -Correct Patient Yes Yes -Correct Side, Site, Position Yes Yes -Correct Procedure Yes Yes -Procedure Performed Yes No -Type of Procedure Debridement -Clinical Debridement Subcutaneous -Tissue Removed Subcutaneous -Post Debridement (cm) - Length 1.3 0 -Post Debridement (cm) - Width 1.3 0 -Post Debridement (cm) - Depth 0.1 0 -Total Square (Post) (cm) 1.69 0 -Area of Debridement (cm) - Length 1.3 -Area of Debridement (cm) - Width 1.3 -Total Square (Area) (cm) 1.69 -Tunneling No -Undermining/Tunneling No -Circular Undermining No -Wound/Ulcer Outcome Not Healed Healed- Epithelialized -Ulcer Cleansing Rinsed/ Irrigated with Saline -Foul Odor after Cleansing No -Bioengineered Tissue No -Bleeding Controlled with Pressure -Offloading No -Treatment Response Procedure Tolerated Well -Debridement - Subq, 1st 20sq cm Yes #5 LLE Circ -Time 15:42 15:47 -Correct Patient Yes Yes -Correct Side, Site, Position Yes Yes -Correct Procedure Yes Yes -Procedure Performed Yes No -Type of Procedure Debridement -Clinical Debridement Subcutaneous -Tissue Removed Subcutaneous -Post Debridement (cm) - Length 1.5 0.1 -Post Debridement (cm) - Width 1.5 0.1 -Post Debridement (cm) - Depth 0.1 0.1 -Total Square (Post) (cm) 2.25 0.01 -Area of Debridement (cm) - Length 1.5 -Area of Debridement (cm) - Width 1.5 -Total Square (Area) (cm) 2.25 -Tunneling No No -Undermining/Tunneling No No -Circular Undermining No No -Wound/Ulcer Outcome Not Healed Not Healed -Ulcer Cleansing Rinsed/ Not Cleansed Irrigated with Saline -Foul Odor after Cleansing No No -Bioengineered Tissue Yes No -Type of Bioengineered Tissue NuShield Disc -Expiration Date 07/19/24 -Product Lot Number [id number] -Percent Used 100 -Saline Lot Number [id number] -Bleeding Controlled with Pressure NA -Offloading No No -Debridement - Subq, 1st 20sq cm No -Apply Skin Sub - 1st 25 sq cm - Legs 1 -NuShield 16mm Disc 2 #3 RLE Med -Time 15:43 -Correct Patient Yes -Correct Side, Site, Position Yes -Correct Procedure Yes -Procedure Performed No -Post Debridement (cm) - Length 0 -Post Debridement (cm) - Width 0 -Post Debridement (cm) - Depth 0 -Total Square (Post) (cm) 0 -Wound/Ulcer Outcome Healed- Epithelialized Pain Scale: 0-10 Numeric Is Patient Pain Free? Yes Yes WC - Nurse 3 - General Ulcer D/C NN Start: 02/12/20 15:05 Freq: Status: Active Protocol: Activity Type Activity Date Activity User E-Sign Co-Sign Detail Recorded Client Recorded Date Recorded By Document 02/12/20 15:49 MW [id number] 02/12/20 15:51 MW Document 02/17/20 13:27 DL [id number] 02/17/20 13:32 DL Document 02/24/20 13:21 DL [id number] 02/24/20 13:27 DL Document 02/27/20 10:24 BMF [id number] 02/27/20 10:25 BMF 02/12/20 02/17/20 02/24/20 15:49 13:27 13:21 Wound Care Nurse 3 6. R lateral calf -Ulcer Cleansing Rinsed/ Wound Cleanser Irrigated with Saline -Foul Odor after Cleansing No No -Negative Pressure Wound Therapy N/A -Primary Dressing Applied Aquacel Extra Aquacel AG 4x4 -Primary Dressing Covered/Secured with Dry Gauze & Roll Gauze, Secured with Tape -Aquacel Extra 1 -Aquacel AG 4x4 1 #5 LLE Circ -Ulcer Cleansing Not Cleansed Wound Cleanser soapy water -Foul Odor after Cleansing No No No -Negative Pressure Wound Therapy N/A -Primary Dressing Applied Other -Other Dressing [facility] unna boot -Primary Dressing Covered/Secured with Dry Gauze -Other Covering Adaptic/steri strips Right -Lotion applied to leg before No compression wrap -Multi-Layered Wrap Application Multi-Layer Multi-Layer Unna Boot - Comp - Right ($ Comp - Right ($ Bilateral ($) ) ) -Compression Wrap -Unna Boots (Bilat) ($) 2 Left -Lotion applied to leg before No compression wrap -Multi-Layered Wrap Application Multi-Layer Comp - Left ($) -Compression Wrap -Other unna boot applied to left and right legs Treatment Response Procedure Procedure Procedure Tolerated Well Tolerated Well Tolerated Well Vital Signs Temperature (97.8 F-99.1 F) 98.1 F 98.9 F Temperature Source Temporal Temporal Pulse Rate (60-100) 75 73 Pulse Location Monitor Respiratory Rate (12-18) 20 H 16 Respiratory rate source Observation Observation Oxygen Delivery Method Room Air Blood Pressure (90/60-120/80) 113/59 L 110/61 Blood Pressure Mean (mm Hg) 77 77 Source Monitor Position Sitting Blood Pressure Location Left Forearm Comment Pain Scale: 0-10 Numeric Is Patient Pain Free? Yes Yes Yes WC - Visit Discharge Discharge Condition Stable Stable Stable Ambulatory Status Ambulatory Ambulatory,Cane Ambulatory,Cane Transportation Private Auto Private Auto transport Accompanied by [facility] Medication Reconcilliation completed & No provided to patient/care provider Clinical Summary of Care Provided Yes 02/27/20 10:24 Wound Care Nurse 3 6. R lateral calf -Ulcer Cleansing -Foul Odor after Cleansing -Negative Pressure Wound Therapy -Primary Dressing Applied -Primary Dressing Covered/Secured with -Aquacel Extra -Aquacel AG 4x4 #5 LLE Circ -Ulcer Cleansing -Foul Odor after Cleansing -Negative Pressure Wound Therapy -Primary Dressing Applied -Other Dressing -Primary Dressing Covered/Secured with -Other Covering Right -Lotion applied to leg before compression wrap -Multi-Layered Wrap Application -Compression Wrap Amando Wrap -Unna Boots (Bilat) ($) Left -Lotion applied to leg before compression wrap -Multi-Layered Wrap Application -Compression Wrap Amando Wrap -Other Treatment Response Procedure Tolerated Well Vital Signs Temperature (97.8 F-99.1 F) Temperature Source Pulse Rate (60-100) Pulse Location Respiratory Rate (12-18) Respiratory rate source Oxygen Delivery Method Blood Pressure (90/60-120/80) Blood Pressure Mean (mm Hg) Source Position Blood Pressure Location Comment NO DEBRIDEMENT TODAY. HEALED Pain Scale: 0-10 Numeric Is Patient Pain Free? Yes WC - Visit Discharge Discharge Condition Stable Ambulatory Status Ambulatory,Cane Transportation Private Auto Accompanied by Medication Reconcilliation completed & provided to patient/care provider Clinical Summary of Care Provided No debridement was completed today Assessment/Plan Active Problems (Last Reviewed 02/01/20 @ 15:[address] Ciro Loyola MD) Morbid obesity with BMI of 40.0-44.9, adult (Chronic) Bilateral lower extremity edema (Chronic) Lymphedema (Chronic) Type 2 diabetes mellitus (Chronic) Essential hypertension (Chronic) Atherosclerosis of coronary artery bypass graft without angina pectoris (Chronic) CABG x6 ; Internal Mammary to Anterior Descending, SVG to diag branch of the Anterior descending,SVG to the lateral & posteriorlateral CX, SVG to Posterior Descending and continuation branches of the RCA 02/27/03 Chronic systolic congestive heart failure (Chronic) Assessment: Venous leg ulcer left lower extremity. Lymphatic filariasis, chronic, suspected. Lymphedema, chronic. Bilateral lower extremity edema, chronic. PVD, chronic. Morbid obesity, chronic Plan: The patient was seen and examined at the wound center today and was updated on the plan of care. The patient's bilateral lower extremity ulcers are healed today. Amando wraps were applied to bilateral lower extremities. He will continue to follow-up with lymphedema clinic. Patient has been advised to elevate lower extremities as much as possible. Elevation is to be implemented during daytime hours and legs are to be elevated to heart level, or higher, as much as possible. Prolonged idle sitting, standing or dangling of legs has been discouraged. Activity and ambulation has been encouraged. Venous Doppler study completed 06/03/2019: Right great saphenous vein is absent, having been previously harvested; left great saphenous vein incompetent below the knee; right accessory saphenous vein and right mid calf is incompetent; otherwise normal venous Doppler study, see full report for further details. Arterial studies completed 06/03/2019: No evidence of significant arterial occlusive disease in bilateral lower extremities, see full report for further details. Concerning the right hand erythema and swelling, the patient was advised to notify his primary care provider today (Dr. Manuel Sandoval), or report to urgent care or the emergency department for further evaluation and treatment. He was advised to go to the emergency room should his symptoms worsen or any new symptoms arise, including but not limited to fever, chills, increasing warmth, increasing redness, increasing tenderness, nausea, vomiting, or diarrhea. Note: Perficient speech recognition remedial masseur software was used to create portions of this document. Sound-alike and misspelled words, as well as other remedial masseur errors may be contained in the documentation. Office Visits / Consults: [id number] OV L2 Est
== END 2020-03-06 23:59 ==
LOC: WC 10:00
PROVIDERS: Family Provider Family Medicine; PCP Family Medicine; Referring Provider Nurse Practitioner Family; Visit Provider Nurse Practitioner Family
DX: I83.018 Varicose veins of right lower extremity with ulcer other part of lower leg (principal); I83.028 Varicose veins of left lower extremity with ulcer other part of lower leg; L97.812 Non-pressure chronic ulcer of other part of right lower leg with fat layer exposed; L97.822 Non-pressure chronic ulcer of other part of left lower leg with fat layer exposed; B74 Filariasis; I25.810 Atherosclerosis of coronary artery bypass graft(s) without angina pectoris; R60.0 Localized edema; E11.51 Type 2 diabetes mellitus with diabetic peripheral angiopathy without gangrene; I50.22 Chronic systolic (congestive) heart failure; I11.0 Hypertensive heart disease with heart failure; E78.5 Hyperlipidemia, unspecified; E66.01 Morbid (severe) obesity due to excess calories; I25.2 Old myocardial infarction; Z68.41 Body mass index [BMI] 40.0-44.9, adult; Z99.2 Dependence on renal dialysis; I25.5 Ischemic cardiomyopathy; I27.20 Pulmonary hypertension, unspecified
CPT/HCPCS: 11042; 15271; 29580; 29581; 99212; 99213; Q4160; G0463

== ENCOUNTER → 2020-03-15 11:03 | Outpatient (CLI) | payer MEDICARE, SELFPAY ==
[2020-02-19 15:10] VITALS: BMI 47.4
[2020-02-27 09:47] VITALS: BMI 47.4
[2020-03-15 11:47] VITALS: PULSE 65; PULSE 67; PULSE 72; PULSE 73; PULSE 74; PULSE 76; PULSE 81; PULSE 90; O2SAT 86; O2SAT 89; O2SAT 94; O2SAT 96
--- NOTE | 2020-03-15 11:50 | CPS ---
Patient wears 2 lpm O2 pulse dose at home PRN, mostly when exerting/walking. Patient SpO2 93-94% on room air while sitting. Started testing on room air. By the 3rd minute, SpO2 86%, placed patient on 2 lpm home O2 tank. Patient recovered quickly and began walking the rest of the test on 2 lpm O2.
--- NOTE | 2020-03-16 16:16 | PCM.PSN.6M ---
PSN 6 Minute Walk Test - 6 Minute Walk Test 6 Minute Walk Test: 6 Minute Walk Test PSN:6-Minute Walk Test Start: 03/15/20 11:47 Freq: Status: Active Protocol: RESP.6MINW Document 03/15/20 11:47 ARASELI (Rec: 03/15/20 11:52 ARASELI [id number]) 6 Minute Walk Test Date Performed 03/15/20 Time Performed 11:30 Height 5 ft 1 in Weight: 93.894 kg Weight in Pounds 207.[address]: Riya Connolly WATER QUALITY ANALYST Assistive device used: Cane Pre-test Oxygen Delivery Method Room Air Pulse Ox (%) 94 Pulse Rate (60-100 beats/min) 67 Dyspnea Farzad Scale (0-10) 0 Exertion Farzad Scale (6-20) 6 1st minute Oxygen Delivery Method Room Air Pulse Ox (%) 89 Pulse Rate (60-100 beats/min) 72 2nd minute Oxygen Delivery Method Room Air Pulse Ox (%) 89 Pulse Rate (60-100 beats/min) 74 3rd minute Oxygen Delivery Method Room Air Pulse Ox (%) 86 Pulse Rate (60-100 beats/min) 90 4th minute Oxygen Flow Rate (L/min) (L/min) 2 Oxygen Delivery Method Nasal Cannula Pulse Ox (%) 94 Pulse Rate (60-100 beats/min) 73 5th minute Oxygen Flow Rate (L/min) (L/min) 2 Oxygen Delivery Method Nasal Cannula Pulse Ox (%) 94 Pulse Rate (60-100 beats/min) 76 6th minute Oxygen Flow Rate (L/min) (L/min) 2 Oxygen Delivery Method Nasal Cannula Pulse Ox (%) 94 Pulse Rate (60-100 beats/min) 81 Dyspnea Farzad Scale (0-10) 2 Exertion Farzad Scale (6-20) 14 Post-test Oxygen Flow Rate (L/min) (L/min) 2 Oxygen Delivery Method Nasal Cannula Pulse Ox (%) 96 Pulse Rate (60-100 beats/min) 65 Full Laps Walked 12 Partial Lap, Number of Tiles Walked 15 Total Distance Walked (ft) 723 03/15/20 11:50 Cardiopulmonary Services by Chastity Rmaey Patient wears 2 lpm O2 pulse dose at home PRN, mostly when exerting/walking. Patient SpO2 93-94% on room air while sitting. Started testing on room air. By the 3rd minute, SpO2 86%, placed patient on 2 lpm home O2 tank. Patient recovered quickly and began walking the rest of the test on 2 lpm O2. Initialized on 03/15/20 11:50 - END OF NOTE - Interpretation Interpretation: The patient was noted to be 94% on room air at rest. The patient desaturated to 86% in the third minute and was placed on 2 L nasal cannula. No significant tachycardia was noted during testing. In total, the patient traveled 723 feet over the course of 6 minutes with the assistance of a cane and one break. These findings are consistent with a respiratory limitation exercise tolerance. - Recommendations Recommendations: No supplemental oxygen is indicated at rest, but patient should be using 2 L nasal cannula with any exertion.
== END ==
PROVIDERS: PCP Family Medicine; Referring Provider Nurse Practitioner Acute Care; Visit Provider Nurse Practitioner Acute Care
DX: R06.00 Dyspnea, unspecified (principal)
CPT/HCPCS: 94618

== ENCOUNTER → 2020-07-02 10:54 | Outpatient (CLI) | payer MEDICARE, SELFPAY ==
[2020-05-12 13:56] VITALS: BMI 34.4
--- NOTE | 2020-07-02 10:57 | VDUE_ITS ---
Reason For Study: Pre op testing Right Arm Left Arm Right Cephalic Vein at the wrist measures Left Cephalic Vein at the wrist measures 0.31 x 0.30 cm. 0.35 x 0.36 cm. Right Cephalic Vein in the forearm measures Left Cephalic Vein in the forearm measures 0.25 x 0.27 cm. 0.35 x 0.36 cm. Right Cephalic Vein below antecub measures Mid forearm branch measures 0.28 x 0.29 cm. 0.29 x 0.27 cm. Left Cephalic Vein below antecub measures Right Cephalic Vein above antecub measures 0.36 x 0.36 cm. 0.30 x 0.29 cm. Left Cephalic Vein above antecub measures Right Cephalic Vein mid bicep measures 0.27 0.16 x 0.16 cm. x 0.25 cm. Left Cephalic Vein at mid bicep measures Right Cephalic Vein at the shoulder measures 0.17 x 0.19 cm. 0.31 x 0.30 cm. Left Cephalic Vein at the shoulder measures Right Basilic Vein at the origin measures 0.17 x 0.18 cm. 0.33 x 0.34 cm. Basilic vein at origin measures 0.53 x 0.57 Right Basilic Vein mid bicep measures 0.45 x cm. 0.45 cm. Basilic vein at bicep measures 0.51 x 0.51 Right Basilic Vein above antecub measures cm. 0.37 x 0.38 cm. Basilic vein above antecub measures 0.54 x Right Brachial artery measures 0.58 x 0.56 0.54 cm. cm with a velocity of 55.6 cm/sec. Left Brachial artery measures 0.56 x 0.56 cm Right Radial artery measures 0.24 x 0.26 cm with a velocity of 85.6 cm/sec. with a velocity of 52.9 cm/sec. Left Radial artery measures 0.23 x 0.24 cm with a velocity of 52.9 cm/sec. Interpretation Summary Patent and compressible bilateral upper extremity cephalic and basilic veins with dimensions as noted. Left upper arm cephalic vein small. Normal diameter and flow bilateral radial and brachial arteries Ordering Physician: Julio Mcclendon Referring Physician: Manuel Sandoval MD Performed By: Orquidea Johnston RVT ?
== END ==
PROVIDERS: PCP Family Medicine; Referring Provider Surgery; Visit Provider Surgery
DX: Z01.818 Encounter for other preprocedural examination (principal); M79.89 Other specified soft tissue disorders
CPT/HCPCS: 93970

== ENCOUNTER → 2020-08-02 11:29 | Outpatient (CLI) | payer MEDICARE, SELFPAY ==
[2020-07-20 13:36] VITALS: BMI 36.6
[2020-08-02 14:55] LABS: Absolute Lymphocyte Count 1.86 X10^3/uL (0.83-4.51); Absolute Neutrophil Count 3.5 X10^3/uL (2.0-7.7); Basophil# 0.04 X10^3/uL; Basophil% 0.6 % (0-1); Eosinophils% 7.9 % (0-5); Hematocrit 35.8 % (40-54); Lymphocyte # 1.86 X10^3/ul (4.0); Lymphocyte % 29.2 % (19-41); Mean Corp Hgb Conc 30.7 g/dL (32-36); Mean Corpuscular Hgb 27.8 pg (27.0-32.0); Mean Corpuscular Volume 90.6 fL (80-94); Mean Platelet Vol. 12.1 fl (6.2-12.0); Monocyte# 0.45 X10^3/uL; Monocyte% 7.1 % (0-10); NRBC Flagged by Analyzer 0 % (0-5); Neutrophil # 3.48 X10^3/uL (2.7-7.7); Neutrophil % 54.7 % (47-70); Platelet Count 175 K/mm3 (150-450); RBC Distribution Width CV 12.4 % (11.6-14.6); RBC Distribution Width SD 41.1 fl (35.1-43.9); Red Blood Count 3.95 M/mm3 (4.6-6.2); White Blood Count 6.4 K/mm3 (4.4-11.0)
[2020-08-02 15:28] LABS: AST(SGOT) 27 U/L (15-37); Alanine Aminotransfer ALT/SGPT 54 U/L (16-61); Albumin, Serum 3.8 g/dL (3.2-5.0); Alkaline Phosphatase 111 U/L (45-117); Anion Gap 7 (5-15); BUN 63 mg/dL (7-18); BUN/Creat Ratio 13.6 RATIO (10-20); Calcium,Total 8.8 mg/dL (8.5-10.1); Chloride 99 mmol/L (98-107); Creatinine, Serum 4.64 mg/dL (0.70-1.30); EST Glomerular Filtration Rate 14 mL/min (>60); Est Glom Filt Rate - Afr Amer 17 mL/min (>60); Glucose 232 mg/dL (74-106); Potassium 4.6 mmol/L (3.5-5.1); Protein, Total 7.8 g/dL (6.4-8.2); Sodium Level 134 mmol/L (136-145); Thyroid Stim Hormone (TSH) 0.81 uIU/mL (0.358-3.74)
== END ==
PROVIDERS: PCP Family Medicine; Referring Provider Family Medicine; Visit Provider Family Medicine
DX: E11.22 Type 2 diabetes mellitus with diabetic chronic kidney disease (principal); N18.30 Chronic kidney disease, stage 3 unspecified; E11.51 Type 2 diabetes mellitus with diabetic peripheral angiopathy without gangrene
CPT/HCPCS: 36415; 80053; 84443; 85025

== ENCOUNTER 2020-08-06 09:04 | Day surgery (SDC) | payer MEDICARE, SELFPAY ==
[2020-07-20 13:36] VITALS: BMI 36.6
[2020-08-04 09:47] LABS: Hematocrit 35.3 % (40-54); Hemoglobin 11.3 g/dL (13.0-16.5); Mean Corpuscular Hgb 28.5 pg (27.0-32.0); Mean Corpuscular Volume 88.9 fL (80-94); Mean Platelet Vol. 11.7 fl (6.2-12.0); Platelet Count 200 K/mm3 (150-450); RBC Distribution Width CV 12.3 % (11.6-14.6); RBC Distribution Width SD 40.1 fl (35.1-43.9); Red Blood Count 3.97 M/mm3 (4.6-6.2); White Blood Count 6.8 K/mm3 (4.4-11.0)
[2020-08-04 10:04] LABS: Anion Gap 10 (5-15); BUN 70 mg/dL (7-18); BUN/Creat Ratio 14.3 RATIO (10-20); Calcium,Total 8.8 mg/dL (8.5-10.1); Chloride 101 mmol/L (98-107); Creatinine, Serum 4.89 mg/dL (0.70-1.30); EST Glomerular Filtration Rate 13 mL/min (>60); Est Glom Filt Rate - Afr Amer 16 mL/min (>60); Glucose 190 mg/dL (74-106); Potassium 4.3 mmol/L (3.5-5.1); Sodium Level 137 mmol/L (136-145)
--- NOTE | 2020-08-05 12:05 | EKG12_ITS ---
Test Reason : PREOP Blood Pressure : / mmHG Vent. Rate : 075 BPM Atrial Rate : 075 BPM P-R Int : 218 ms QRS Dur : 120 ms QT Int : 440 ms P-R-T Axes : 073 044 141 degrees QTc Int : 491 ms Sinus rhythm with 1st degree A-V block with occasional Premature ventricular complexes Incomplete left bundle branch block Nonspecific T wave abnormality Abnormal ECG Confirmed by REYNALDO NAYAK, MICHAEL ([id number]), image editor ALE GAMINO ([id number]) on 08/06/2020 10:45:20 AM Referred By: Julio Mcclendon Confirmed By:MICHAEL JACOBS MD
[2020-08-06] VITALS (7 sets, daily range): BP systolic 91–174; BP diastolic 56–80; PULSE 66–88; RESP 16–18; TEMP 36.4–36.8; O2SAT 96–100; BMI 38.0
[2020-08-06 10:06] LABS: Bedside Glucose 165 mg/dL (70-110)
--- NOTE | 2020-08-06 10:48 | PCM.HP.BLA ---
Problem List (1) Chronic renal failure, stage 5 Status: Chronic History and Physical Date of Admission: 08/06/20 Intake Visit Reasons: 07/02 PERMANENT ACCESS Chief Complaint: fistula consult Functional Mental Disability Teacher Required: No Is patient in pain?: No Allergies No Known Allergies Allergy (Verified 05/12/20 13:56) Medications Aspirin [Aspirin, Baby] 81 mg PO DAILY@0800 03/10/14 [History Confirmed 07/20/20] albuterol sulfate 90 mcg/actuation aerosol inhaler 2 puff INHALATION Q4H PRN #18 g 12/04/19 [Rx Confirmed 07/20/20] Acetaminophen [Tylenol Tablet] 650 mg PO Q6H PRN PRN tab 02/07/20 [Rx Confirmed 07/20/20] Allopurinol [Zyloprim] 100 mg PO DAILY #30 tab 02/07/20 [Rx Confirmed 07/20/20] amiodarone 200 mg tablet 100 mg PO DAILY #45 tab 04/19/20 [Rx Confirmed 07/20/20] furosemide 80 mg tablet 80 mg PO BID@1000,1800 #60 tab 04/19/20 [Rx Confirmed 07/20/20] lisinopril 20 mg tablet 20 mg PO BID #60 tab 04/19/20 [Rx Confirmed 07/20/20] metformin 1,000 mg tablet 1,000 mg PO BID 04/19/20 [History Confirmed 07/20/20] metoprolol tartrate 25 mg tablet 25 mg PO BID #60 tab 04/19/20 [Rx Confirmed 07/20/20] simvastatin 20 mg tablet 20 mg PO QHS #90 tab 04/19/20 [Rx Confirmed 07/20/20] isosorbide mononitrate 30 mg tablet,extended release 24 hr See Rx Instructions .ROUTE .COMPLEX #90 tablet 05/31/20 [Rx Confirmed 07/20/20] hydroxyzine HCl 25 mg tablet 25 mg PO ONCE tab 07/20/20 [History Confirmed 07/20/20] [facility] Medical History (Updated 07/20/20 @ 13:[address] Julio Mcclendon MD) Chronic renal failure, stage 5 (Chronic) Essential hypertension (Chronic) Pure hypercholesterolemia (Chronic) Atherosclerosis of coronary artery bypass graft without angina pectoris (Chronic) Chronic systolic congestive heart failure (Chronic) Ischemic cardiomyopathy (Chronic) Pulmonary hypertension (Chronic) Presence of cardiac defibrillator (Chronic ~08/2004) Tachycardia (Acute) Long-term use of high-risk medication (Inactive) Old myocardial infarction (Chronic) Angina decubitus (Acute) Edema (Acute) Family history of hypertension (Acute) Fatty liver (Acute) Type 2 diabetes mellitus (Acute) Abnormal stress test (Inactive) Surgical History (Updated 07/20/20 @ 13:36 by Sangeeta Godinez) Aortocoronary bypass status (Resolved ~02/22/03) History of permanent cardiac pacemaker placement (Acute) Family History Mother Hypertension Sister Hypertension Social History (Updated 07/20/20 @ 13:[address] Julio Mcclendon MD) Smoking Status: Former smoker alcohol intake: never substance use type: does not use caffeine: No HPI HPI HPI: KAUR SANDOVAL, is a 64 M who presents to the office today for surgical consultation regarding creation of an arteriovenous hemodialysis fistula. The patient is referred by and a written copy my surgical consult recommendations will be returned to him. On February Dr. Rolf Saul placed a right internal jugular tunneled hemodialysis catheter. The patient has been on hemodialysis since that time. The patient has a left chest pacemaker in place. He had vein mapping as noted below. Fortunately the right upper extremity cephalic vein appears to be patent and compressible and of adequate caliber throughout. The left upper arm cephalic vein is small [facility] [address] [place] [address]. [place] [address] Saphenous Vein Mapping, Bilat 07/02/20 1105 MR#: [id number] Name: David SANDOVAL #:[id number] : 1955 64From: Julio Mcclendon MD Attending Dr: TANIA Peppertatus: REG CLI Ordering Dr: Julio Mcclendon MDDate: 07/02/20 Location:CVSSex:MA Admitted: Reason For Study: Pre op testing Right Arm Left Arm Right Cephalic Vein at the wrist measures Left Cephalic Vein at the wrist measures 0.31 x 0.30 cm. 0.35 x 0.36 cm. Right Cephalic Vein in the forearm measures Left Cephalic Vein in the forearm measures 0.25 x 0.27 cm. 0.35 x 0.36 cm. Right Cephalic Vein below antecub measures Mid forearm branch measures 0.28 x 0.29 cm. 0.29 x 0.27 cm. Left Cephalic Vein below antecub measures Right Cephalic Vein above antecub measures 0.36 x 0.36 cm. 0.30 x 0.29 cm. Left Cephalic Vein above antecub measures Right Cephalic Vein mid bicep measures 0.27 0.16 x 0.16 cm. x 0.25 cm. Left Cephalic Vein at mid bicep measures Right Cephalic Vein at the shoulder measures 0.17 x 0.19 cm. 0.31 x 0.30 cm. Left Cephalic Vein at the shoulder measures Right Basilic Vein at the origin measures 0.17 x 0.18 cm. 0.33 x 0.34 cm. Basilic vein at origin measures 0.53 x 0.57 Right Basilic Vein mid bicep measures 0.45 x cm. 0.45 cm. Basilic vein at bicep measures 0.51 x 0.51 Right Basilic Vein above antecub measures cm. 0.37 x 0.38 cm. Basilic vein above antecub measures 0.54 x Right Brachial artery measures 0.58 x 0.56 0.54 cm. cm with a velocity of 55.6 cm/sec. Left Brachial artery measures 0.56 x 0.56 cm Right Radial artery measures 0.24 x 0.26 cm with a velocity of 85.6 cm/sec. with a velocity of 52.9 cm/sec. Left Radial artery measures 0.23 x 0.24 cm with a velocity of 52.9 cm/sec. Interpretation Summary Patent and compressible bilateral upper extremity cephalic and basilic veins with dimensions as noted. Left upper arm cephalic vein small. Normal diameter and flow bilateral radial and brachial arteries Ordering Physician: Jluio Mcclendon Referring Physician: Manuel Sandoval MD Performed By: Orquidea Johnston RVT ? 07/02/20 1217 Date HPI HPI HPI: KAUR SANDOVAL, is a 64 M who presents to the office today for ROS General General: Yes weight change; no appetite, fatigue, colon cancer, breast cancer or weakness HEENT HEENT: No difficulty swallowing, eye injury, eye surgery, swollen glands or hoarseness Endo Endocrine: Yes diabetes mellitus; no thyroid disease, thyroid cancer, Hair loss, heat intolerance or cold intolerance Cardio Cardiovascular: Yes pacemaker, heart disease and high blood pressure; no murmur, atrial fibrillation, heart attack, heart stent, palpitations, shortness of breat with exertion or chest pain Psych Psychiatric: No depression, anxiety or hearing voices Resp Respiratory: No shortness of breath, No sleep apnea, No cough, No COPD, No asthma, No emphysema, No wheezing Gastro Gastrointestinal: No abdominal pain, No nausea or vomiting, No diarrhea, No constipation, No blood in stool, No acid reflux, No hemorrhoids, No ulcers, No gallbladder problem, No black,tarry stools Jose Hematologic: No blood thinners, No blood disorders, No bleeding, No anemia, No blood clots Neuro Neurologic: No weakness Exam Const General: cooperative, comfortable, no acute distress Nutritional Appearance: obese Orientation: alert, awake [facility] Head: normal to inspection Resp Effort & Inspection: normal respiratory effort Auscultation: clear to auscultation bilaterally Cardio Rate: regular rate Rhythm: regular rhythm Heart Sounds: no murmurs Other: Right radial pulse 3+. Right brachial pulse 3+. GI Palpation: soft Skin General: no rashes or lesions noted Neuro Cognition: normal cognition Extrem Other: Bilateral lower extremity pitting edema noted Psych Affect: normal affect Assessment & Plan Problems 1. Chronic renal failure, stage 5 N18.5 Plan 64-year-old gentleman with stage V chronic renal insufficiency now on hemodialysis via tunneled right IJ hemodialysis catheters. He has a left chest pacemaker in place. He is right arm dominant. Duplex imaging demonstrates an adequate right upper extremity cephalic vein. Clinically he has adequate right radial and ulnar flow. I propose for him a right wrist/forearm radiocephalic arteriovenous fistula creation. I discussed with him technique, benefit, risk, alternatives. He has had an opportunity to ask and have questions answered. We will schedule and expedite his care. I appreciate the opportunity of assisting with her surgical management. Copy: and Dr. Manuel Mcclendon M.D., F.A.C.S. Coding Level of Care Code 97344 Diagnoses Chronic renal failure, stage 5 N18.5 I have re-examined the patient. There are no clinical changes since date of exam. Procedure Criteria Procedure Type: Elective COVID Risk Discussion: The surgeon/proceduralist and patient have discussed in detail the risk of exposure to and/or potential harm posed by the COVID-19 virus with having a surgery/procedure at this time versus the risk of delaying the surgery/procedure. It is not possible to know either the risk of delaying the surgery or procedure or chance of getting an infection with perfect accuracy, but a joint decision was made between the patient and the surgeon/proceduralist to proceed at this time with the scheduled surgery/procedure as indicated on the consent form.
[2020-08-06] MEDS: Heparin Injection (Vial) 5,000 UNIT/ML VIAL 5000 UNIT (11:30)
[2020-08-06] MEDS: Bupivacaine Mpf 0.5% 30 ML VIAL (11:34)
[2020-08-06] MEDS: Lidocaine 1% (30 ml sdv) 30 ML Vial (11:34)
--- NOTE | 2020-08-06 12:39 | PCM.OPRPT ---
Problem List (1) Chronic renal failure, stage 5 Status: Chronic Report of Operation Date of Procedure: 08/06/20 Pre-Operative Diagnosis: Stage V chronic renal failure Post-Operative Diagnosis: Same Surgery/Procedure Performed:: Right forearm radiocephalic arteriovenous hemodialysis fistula creation Description of Surgical Findings:: Timeout and informed consent was obtained. 64-year-old gentleman was taken to the operating place upon the table underwent monitored anesthesia care. Clean procedure. The right upper semiwas sterilely prepped and draped. 1% lidocaine mixed 50-50 with 0.5% Marcaine was used as a local anesthetic. A total of 6 cc was used. Ultrasound had been used to map the course of the cephalic vein of the forearm. Local was instilled. An oblique incision was created. Sharp and blunt dissection was used to identify the cephalic vein which was dissected distally to a branch point. Then sharp and blunt dissection was used to identify the radial artery which was mobilized. Hemoclips were used for hemostasis were indicated. The patient received 9000 units of heparin intravenously. The vein was ligated distally with hemoclips. It was cut at the branch point and then spatulated open. Peripheral vascular clamps were placed on the radial artery. An 11 blade was used to make an arteriotomy which was extended with Perkins scissors. A end-to-side anastomosis was created with a running 7-0 Prolene. Prior to completion there was good antegrade flow. The anastomosis was completed immediately there was good flow in the fistula. Hemostasis was intact. The patient then received 20 mg of protamine IV. The wound was closed in layers with a deep layer of interrupted 3-0 Vicryl and then a running septic or 4-0 Monocryl. Steri-Strips Telfa tape dressings applied. Sponge and instrument and needle counts were reported to procedure to be correct. There was good Doppler flow within the fistula at the completion. Specimens none. Drains none. Blood loss minimal. There was a good 2+ radial pulse distal to the anastomosis. Hand was viable. The patient was taken to the recovery area in satisfactory condition without apparent complication Julio Mcclendon M.D., F.A.C.S. Type of Anesthesia:: Local MAC Anesthesiologist: Cleveland Taylor
--- NOTE | 2020-08-06 12:42 | DCINST_ITS ---
Discharge Diet: Renal Diet Discharge Activity: May Not Drive - for 2-3 days or while taking narcotic pain medications., May Not Shower, May Take a Tub Bath - in 5 days. Lifting Restrictions: 5 pounds Keep extremity elevated above heart level: - - Keep arm elevated above the heart level for 3 days. Additional Activity Instructions:: Exercise hand vigorously with a stress ball. Call your doctor if your incision/area has: Continuous Slow Oozing, Sudden Increased Bleeding - apply pressure and call your doctor., Increased Pain/ Swelling, Increased Redness, Foul Smelling Discharge Call your doctor if you observe: Fever of 101 or Higher Suture Line Care: Avoid Pulling/Pushing, Avoid Pinching/Bending Cleanse incision/area with: Keep Dressing Clean & Dry Additional Dressing/Incision Instructions:: Change or remove dressing in two days. May protect with a gauze bandaid. Allergies/Adverse Reactions: Allergies No Known Allergies Allergy (Verified 08/06/20 09:34) Medications to take at Discharge Aspirin [Aspirin, Baby] 81 mg PO DAILY@0800 03/10/14 Acetaminophen [Tylenol Tablet] 650 mg PO Q6H PRN PRN tab 02/07/20 Allopurinol [Zyloprim] 100 mg PO DAILY #30 tab 02/07/20 amiodarone 200 mg tablet 100 mg PO DAILY #45 tab 04/19/20 furosemide 80 mg tablet 80 mg PO BID@1000,1800 #60 tab 04/19/20 lisinopril 20 mg tablet 20 mg PO BID #60 tab 04/19/20 metoprolol tartrate 25 mg tablet 25 mg PO BID #60 tab 04/19/20 simvastatin 20 mg tablet 20 mg PO QHS #90 tab 04/19/20 isosorbide mononitrate 30 mg tablet,extended release 24 hr See Rx Instructions .ROUTE .COMPLEX #90 tablet 05/31/20 hydroxyzine HCl 25 mg tablet 25 mg PO ONCE tab 07/20/20 Primary Care Physician: Manuel Sandoval MD [Primary Care Provider] - Test Results: Test results from this visit will be discussed in further detail at your follow- up appointment, if applicable. Please Follow Up With: Julio Mcclendon MD - [phone] When: Call to make an appointment for follow up in 10-14 days
== END 2020-08-06 14:24 | disposition home or self-care (01) ==
LOC: SDC 09:07 → AC 09:07
PROVIDERS: PCP Family Medicine; Referring Provider Surgery; Visit Provider Surgery
PROC: (CPT 36821; principal; 2020-08-06 11:15)
DX: Z45.2 Encounter for adjustment and management of vascular access device (principal); N18.5 Chronic kidney disease, stage 5; E11.22 Type 2 diabetes mellitus with diabetic chronic kidney disease; E78.00 Pure hypercholesterolemia, unspecified; I13.2 Hypertensive heart and chronic kidney disease with heart failure and with stage 5 chronic kidney disease, or end stage renal disease; I25.2 Old myocardial infarction; I50.22 Chronic systolic (congestive) heart failure; I25.5 Ischemic cardiomyopathy; I27.20 Pulmonary hypertension, unspecified; I44.7 Left bundle-branch block, unspecified; I44.0 Atrioventricular block, first degree; Z79.899 Other long term (current) drug therapy; Z20.828 Contact with and (suspected) exposure to other viral communicable diseases; Z79.82 Long term (current) use of aspirin; Z79.84 Long term (current) use of oral hypoglycemic drugs; Z95.810 Presence of automatic (implantable) cardiac defibrillator; Z87.891 Personal history of nicotine dependence
CPT/HCPCS: 01844; 36821; 36415; 80048; 82962; 85027; 87426; 93005; C9803; J7040

== ENCOUNTER → 2020-08-09 09:56 | Outpatient (CLI) | payer MEDICARE, SELFPAY ==
[2020-08-06 09:35] VITALS: BMI 38.0
[2020-08-09 12:23] LABS: Hematocrit 34.9 % (40-54); Hemoglobin 10.8 g/dL (13.0-16.5); Mean Corp Hgb Conc 30.9 g/dL (32-36); Mean Corpuscular Hgb 27.8 pg (27.0-32.0); Mean Corpuscular Volume 89.9 fL (80-94); Mean Platelet Vol. 11.4 fl (6.2-12.0); Platelet Count 188 K/mm3 (150-450); RBC Distribution Width CV 12.5 % (11.6-14.6); RBC Distribution Width SD 41.1 fl (35.1-43.9); Red Blood Count 3.88 M/mm3 (4.6-6.2); White Blood Count 6.4 K/mm3 (4.4-11.0)
[2020-08-09 12:33] LABS: Vitamin D,25 Hydroxy 23.9 ng/mL
[2020-08-09 12:35] LABS: Hemoglobin A1c 7.1 % (3.8-5.6)
[2020-08-09 12:40] LABS: PTHIN 323.1 pg/mL (18.4-80.1)
[2020-08-09 12:48] LABS: ALB/GLOB Ratio 0.9 RATIO (0.9-2.4); AST(SGOT) 25 U/L (15-37); Alanine Aminotransfer ALT/SGPT 38 U/L (16-61); Albumin, Serum 3.7 g/dL (3.2-5.0); Alkaline Phosphatase 111 U/L (45-117); Anion Gap 7 (5-15); BUN 52 mg/dL (7-18); BUN/Creat Ratio 12.8 RATIO (10-20); Chloride 100 mmol/L (98-107); Cholesterol 151 mg/dL (200); Creatinine, Serum 4.05 mg/dL (0.70-1.30); EST Glomerular Filtration Rate 16 mL/min (>60); Est Glom Filt Rate - Afr Amer 19 mL/min (>60); Glucose 167 mg/dL (74-106); High Density Lipoprotein 42 mg/dL; Potassium 4.6 mmol/L (3.5-5.1); Protein, Total 7.7 g/dL (6.4-8.2); Sodium Level 137 mmol/L (136-145); Triglycerides 247 mg/dL; Very Low Density Lipoprotein 49 mg/dL (5-40)
[2020-08-09 16:13] LABS: Microalbumin:Creatinine Ratio 793.2 mg/g CRE (<30 mg/g CRE)
== END ==
PROVIDERS: PCP Family Medicine; Visit Provider Family Medicine
DX: I27.20 Pulmonary hypertension, unspecified (principal); N25.81 Secondary hyperparathyroidism of renal origin; E11.51 Type 2 diabetes mellitus with diabetic peripheral angiopathy without gangrene
CPT/HCPCS: 36415; 80053; 80061; 82043; 82306; 82570; 83036; 83970; 85027

== ENCOUNTER → 2020-10-29 16:41 | Outpatient (CLI) | payer MEDICARE, MEDICAID, SELFPAY ==
[2020-08-06 09:35] VITALS: BMI 38.0
--- NOTE | 2020-10-29 17:02 | CT_ITS ---
STUDY: CT BRAIN WITHOUT CONTRAST REASON FOR EXAM: Male, 64 years old. R/O CVA/MASS. VISUAL FIELD DEFECT RADIATION DOSAGE (If Supplied By Facility): CTDIvol = ( 44.99 ) mGy, DLP = ( 796.11 ) mGycm TECHNIQUE: Transaxial CT imaging of the brain was performed without administration of intravenous contrast material. Individualized dose optimization techniques were used for this CT. COMPARISON: No relevant priors. FINDINGS: There is a round shaped defect in the left orbital roof contiguous with a large defect across the midline of the frontal bone and includes the posterior lateral wall of the frontal sinus. Old medial orbital wall fracture deformity on the right. There is a prominent zone of encephalomalacia in the right frontal lobe and a slightly smaller similar area in the left frontal lobe. Some brain parenchyma protrudes into the defect in the orbital roof which is juxtaposed the low and superior rectus muscle without causing a substantial mass effect. The remainder of the brain parenchyma appears unremarkable. There is mild compensatory enlargement of the anterior horns of the lateral ventricles with otherwise normal ventricular size. Normal brainstem. Normal cerebellum. There is no intracranial hemorrhage. There are no findings of an acute ischemic infarction. Normal visualized paranasal sinuses. CT/Brain/Head without Contrast IMPRESSION: Large defect of the anterior frontal bones contiguous with a roundish defect of the left superior orbital rim and orbital roof which includes the lateral posterior wall of the left frontal sinus. Presumably surgical defect/craniectomy. A small amount of brain tissue protrudes into the orbital defect without causing a substantial mass effect on the orbit or superior rectus muscle. Underlying encephalomalacia of the bilateral anterior frontal lobes. No acute intracranial findings. Negative for hemorrhage, hematoma or mass density. Old medial orbital wall fracture on the right. Electronically Signed: Andria Arce MD at 18:21 EDT , Service support ,
== END ==
PROVIDERS: PCP Family Medicine; Referring Provider Ophthalmology; Visit Provider Ophthalmology
DX: H53.461 Homonymous bilateral field defects, right side (principal)
CPT/HCPCS: 70450

== ENCOUNTER → 2021-03-04 17:41 | Outpatient (CLI) | payer MEDICARE, MEDICAID, SELFPAY | PROVIDERS: PCP Family Medicine; Visit Provider Family Medicine | DX: Z20.822 Contact with and (suspected) exposure to COVID-19 (principal) | CPT/HCPCS: 87633; 87635; U0005; U0003 ==

== ENCOUNTER → 2021-03-17 07:20 | Outpatient (CLI) | payer MEDICARE, MEDICAID, SELFPAY ==
--- NOTE | 2021-03-17 08:30 | RAD_ITS ---
STUDY: XR Chest 2 Views 03/17/2021 8:35 AM REASON FOR EXAM: Male, 65 years old. CHEST PAIN amiodarone therapy COMPARISON: 02/01/2020 TECHNIQUE: XR Chest 2 Views FINDINGS: There is no demonstrated pleural abnormality. There is a left sided pacemaker batterypack. There are multiple median sternotomy wires. There is an elevated right hemidiaphragm. Enlarged heart size. Normal mediastinum. Normal delio. Prominent appearing increased interstitial lung markings. Normal visualized pulmonary arteries. There is atherosclerotic calcification of the aortic arch with tortuosity. There are diffuse degenerative changes of the visualized thoracic spine. There is degenerative osteoarthritis of the bilateral shoulders. There is no demonstrated abnormality of the visualized soft tissue structures of the upper abdomen. RAD/Chest PA and Lateral IMPRESSION: There are no acute findings. Electronically Signed: Steve Perez MD at 16:56 EST , Service support ,
[2021-03-17 10:13] LABS: AST(SGOT) 29 U/L (15-37); Alanine Aminotransfer ALT/SGPT 41 U/L (16-61); Albumin, Serum 3.5 g/dL (3.2-5.0); Alkaline Phosphatase 92 U/L (45-117); Bilirubin, Direct 0.12 mg/dL (0.00-0.30); Cholesterol 156 mg/dL (200); Globulin 4.6 g/dL (2.2-4.2); High Density Lipoprotein 29 mg/dL; Protein, Total 8.1 g/dL (6.4-8.2); Thyroid Stim Hormone (TSH) 0.26 uIU/mL (0.358-3.74); Triglycerides 570 mg/dL
== END ==
PROVIDERS: PCP Family Medicine; Referring Provider Internal Medicine Cardiovascular Disease; Visit Provider Internal Medicine Cardiovascular Disease
DX: I11.0 Hypertensive heart disease with heart failure (principal); E78.00 Pure hypercholesterolemia, unspecified; I25.810 Atherosclerosis of coronary artery bypass graft(s) without angina pectoris; I50.22 Chronic systolic (congestive) heart failure; I25.5 Ischemic cardiomyopathy; Z95.810 Presence of automatic (implantable) cardiac defibrillator
CPT/HCPCS: 36415; 71046; 80061; 80076; 84443

== ENCOUNTER → 2021-04-12 09:26 | Outpatient (CLI) | payer MEDICARE, MEDICAID, SELFPAY ==
[2020-11-02 12:40] VITALS: BMI 38.0
--- NOTE | 2021-04-12 13:51 | PFTCOMP ---
COMPLETE PULMONARY FUNCTION TEST INTERPRETATION Brief HPI: Patient is a 65 year old male, currently under the care of myself, who presents to [facility] for complete pulmonary function tests secondary to diagnosis of pulmonary hypertension. Respiratory therapist reports good effort and reproducible results. Interpretation: Forced expiration spirometry shows a moderately severe large airways obstructive ventilatory defect with an FEV1 of 52% predicted. There is no significant bronchodilator response by strict ATS criteria. Spirograms are of good quality and plateau slowly, indicating slowly emptying areas of the lungs. The respiratory flow volume loop shows a normal pattern. Lung volumes by body plethysmography show a decreased total lung capacity at 3.76 L, 80% predicted. FRC and RV are elevated out of proportion. Lung volume measurements are consistent with air-trapping. Diffusion capacity by carbon monoxide is at the lower limit of normal at 66% predicted. The airway resistance is normal. Compared to previous pulmonary function tests from 11/28/2019, there is been a significant improvement in FVC, FEV1 and TLC by 17%, 23% and 15% respectively. Impression: Irreversible moderately severe mixed ventilatory defect with a symmetric reduction diffusing capacity, but significant improvements compared to November 2019
== END ==
PROVIDERS: PCP Family Medicine; Referring Provider Internal Medicine Critical Care Medicine; Visit Provider Internal Medicine Critical Care Medicine
DX: I27.20 Pulmonary hypertension, unspecified (principal); I50.22 Chronic systolic (congestive) heart failure
CPT/HCPCS: 94060; 94726; 94729

== ENCOUNTER → 2021-04-14 12:18 | Outpatient (CLI) | payer MEDICARE, MEDICAID, SELFPAY ==
[2020-11-02 12:40] VITALS: BMI 38.0
[2021-04-14 12:50] VITALS: PULSE 106; PULSE 110; PULSE 112; PULSE 113; PULSE 114; PULSE 96; PULSE 99; O2SAT 90; O2SAT 91; O2SAT 92; O2SAT 93
--- NOTE | 2021-04-14 15:00 | PCM.PSN.6M ---
PSN 6 Minute Walk Test 6 Minute Walk Test 6 Minute Walk Test: 6 Minute Walk Test PSN:6-Minute Walk Test Start: 04/14/21 12:50 Freq: Status: Active Protocol: [id number].6MINW Document 04/14/21 12:50 ARASELI (Rec: 04/14/21 12:52 ARASELI [id number]) 6 Minute Walk Test Date Performed 04/14/21 Time Performed 12:30 Height 5 ft 4 in Weight: 95.254 kg Weight in Pounds 210.[address]: Carter Melendez Assistive device used: Cane Pre-test Oxygen Delivery Method Room Air Pulse Ox (%) 93 Pulse Rate (60-100 beats/min) 96 Dyspnea Farzad Scale (0-10) 0 Exertion Farzad Scale (6-20) 6 1st minute Oxygen Delivery Method Room Air Pulse Ox (%) 91 Pulse Rate (60-100 beats/min) 106 H 2nd minute Oxygen Delivery Method Room Air Pulse Ox (%) 90 Pulse Rate (60-100 beats/min) 110 H 3rd minute Oxygen Delivery Method Room Air Pulse Ox (%) 92 Pulse Rate (60-100 beats/min) 112 H 4th minute Oxygen Delivery Method Room Air Pulse Ox (%) 91 Pulse Rate (60-100 beats/min) 112 H 5th minute Oxygen Delivery Method Room Air Pulse Ox (%) 91 Pulse Rate (60-100 beats/min) 113 H 6th minute Oxygen Delivery Method Room Air Pulse Ox (%) 90 Pulse Rate (60-100 beats/min) 114 H Dyspnea Farzad Scale (0-10) 1 Exertion Farzad Scale (6-20) 12 Post-test Oxygen Delivery Method Room Air Pulse Ox (%) 93 Pulse Rate (60-100 beats/min) 99 Full Laps Walked 15 Partial Lap, Number of Tiles Walked 10 Total Distance Walked (ft) 895 Interpretation Interpretation: Patient was able to travel 895 feet over the course of 6 minutes on room air with the assistance of a cane and no breaks. The patient was noted to have a lower baseline saturation of 93%, but did not desaturate below 90%. Patient did have persistent tachycardia throughout testing with a peak heart rate of 114 beats per minute. These findings are consistent with a cardiovascular limitation exercise tolerance. Recommendations Recommendations: No supplemental oxygen is indicated at this time.
== END ==
PROVIDERS: PCP Family Medicine; Referring Provider Internal Medicine Critical Care Medicine; Visit Provider Internal Medicine Critical Care Medicine
DX: I27.20 Pulmonary hypertension, unspecified (principal); I50.22 Chronic systolic (congestive) heart failure
CPT/HCPCS: 94618

== ENCOUNTER 2021-05-31 09:12 | Day surgery (SDC) | payer MEDICARE, MEDICAID, SELFPAY ==
[2021-05-30 07:20] VITALS: BMI 38.7
[2021-05-31 09:26] LABS: Hematocrit 37.2 % (40-54); Mean Corp Hgb Conc 32.3 g/dL (32-36); Mean Corpuscular Hgb 27.1 pg (27.0-32.0); Mean Corpuscular Volume 84.2 fL (80-94); Mean Platelet Vol. 9.9 fl (6.2-12.0); Platelet Count 193 K/mm3 (150-450); RBC Distribution Width CV 12.8 % (11.6-14.6); Red Blood Count 4.42 M/mm3 (4.6-6.2)
[2021-05-31 09:41] LABS: Anion Gap 9 (5-15); BUN 48 mg/dL (7-18); BUN/Creat Ratio 9.2 RATIO (10-20); Calcium,Total 7.8 mg/dL (8.5-10.1); Chloride 96 mmol/L (98-107); Creatinine, Serum 5.21 mg/dL (0.70-1.30); EST Glomerular Filtration Rate 12 mL/min (>60); Est Glom Filt Rate - Afr Amer 14 mL/min (>60); Glucose 127 mg/dL (74-106); Potassium 3.8 mmol/L (3.5-5.1); Sodium Level 136 mmol/L (136-145)
--- NOTE | 2021-05-31 09:56 | PCM.HP.BLA ---
History and Physical Date of Admission: 05/31/21 Intake Visit Reasons: FISTULAGRAM Chief Complaint: check fistula Polish Maker Required: No Is patient in pain?: No Allergies No Known Allergies Allergy (Verified 05/12/21 08:37) Medications aspirin 81 mg PO DAILY@0800 03/10/14 [History Confirmed 05/12/21] acetaminophen 650 mg PO Q6H PRN PRN tab 02/07/20 [Rx Confirmed 05/12/21] hydroxyzine HCl 25 mg tablet 25 mg PO ONCE tab 07/20/20 [History Confirmed 05/12/21] allopurinol 300 mg tablet 300 mg PO DAILY tab 03/03/21 [History Confirmed 05/12/21] epinephrine 0.3 mg/0.3 mL injection, auto-injector 0.3 mg IM Q5-15M PRN 03/03/21 [History Confirmed 05/12/21] gabapentin 100 mg capsule 100 mg PO DAILY 03/03/21 [History Confirmed 05/12/21] insulin detemir U-100 100 unit/mL (3 mL) subcutaneous pen 10 unit SUBCUT DAILY ml 03/03/21 [History Confirmed 05/12/21] ipratropium bromide 21 mcg (0.03 %) nasal spray 2 spray INTRANASAL QHS PRN ml 03/03/21 [History Confirmed 05/12/21] nateglinide 120 mg tablet 120 mg PO TID 03/03/21 [History Confirmed 05/12/21] semaglutide 1 mg/dose (4 mg/3 mL) subcutaneous pen injector 1 mg SUBCUT QWEEK 03/03/21 [History Confirmed 05/12/21] amiodarone 200 mg tablet 100 mg PO DAILY #45 tab 03/14/21 [Rx Confirmed 05/12/21] metoprolol tartrate 25 mg tablet 25 mg PO BID #60 tab 03/14/21 [Rx Confirmed 05/12/21] fenofibrate micronized 200 mg capsule 200 mg PO DAILY #30 cap 03/17/21 [Rx Confirmed 05/12/21] furosemide 80 mg tablet 80 mg PO BID #60 tab 03/24/21 [Rx Confirmed 05/12/21] simvastatin 20 mg tablet 20 mg PO QHS #90 tab 03/24/21 [Rx Confirmed 05/12/21] PFSH Medical History Abnormal stress test Angina decubitus Atherosclerosis of coronary artery bypass graft without angina pectoris Chronic renal failure, stage 5 Chronic systolic congestive heart failure Edema Essential hypertension Family history of hypertension Fatty liver Hypertriglyceridemia Ischemic cardiomyopathy Long-term use of high-risk medication Old myocardial infarction Presence of cardiac defibrillator (~08/2004) Pulmonary hypertension Pure hypercholesterolemia Tachycardia Type 2 diabetes mellitus Surgical History Aortocoronary bypass status (~02/22/03) History of permanent cardiac pacemaker placement Family History Mother Hypertension Sister Hypertension Social History Smoking Status: Former smoker alcohol intake: never substance use type: does not use caffeine: No HPI HPI HPI: KAUR SANDOVAL, is a 65 M who presents to the office today for difficulty with cannulation and extended post-treatment bleeds. Patient has a right forearm radiocephalic arteriovenous hemodialysis fistula which was created on 08/06/[address] Mcclendon. Patient states he has to keep his dressing in place and apply pressure for the remaining of the day after treatment. Patient notes this started over the last month. Dialysis center has also noted decreased AFT and difficult cannulation. Patient is maintained on aspirin. He dialyzes on M, W, F. He has never had a fistulogram previously. ROS General General: No weight change, appetite, fatigue, colon cancer, breast cancer or weakness HEENT HEENT: No difficulty swallowing, eye injury, eye surgery, swollen glands or hoarseness Endo Endocrine: Yes diabetes mellitus; No thyroid disease, thyroid cancer, Hair loss, heat intolerance or cold intolerance Skin Skin: No rash or changing moles Breast Breast: No left breast lump, right breast lump, nipple discharge, breast pain, abnormal mammogram, abnormal US or breast enlargement Musc Musculoskeletal: Yes gout; No back problems, arthritis, rheumatoid arthritis or joint pain Additional Details: muscle aches/myalgia (Bilat LE when has dialysis) and balance problems (ambulates with a cane) Cardio Cardiovascular: Yes heart disease and high blood pressure; No murmur, pacemaker, atrial fibrillation, heart attack, heart stent, palpitations, shortness of breat with exertion or chest pain Additional Details: ICD placement Psych Psychiatric: No depression, anxiety or hearing voices Resp Respiratory: No shortness of breath, No sleep apnea, No cough, No COPD, No asthma, No emphysema and No wheezing Gastro Gastrointestinal: No abdominal pain, No nausea or vomiting, No diarrhea, No constipation, No blood in stool, No acid reflux, No hemorrhoids, No ulcers, No gallbladder problem and No black,tarry stools Jose Hematologic: No blood thinners, No blood disorders, No bleeding, No anemia and No blood clots Neuro Neurologic: No system reviewed and no additional complaints, except as documented, No as per HPI, No abnormal gait, No abnormal hearing, No abnormal movements, No abnormal speech, No behavioral changes, No burning sensations, No confusion, No convulsions, No disequilibrium, No dizziness, No localized weakness, No frequent falls, No headache(s), No lack of coordination, No loss of vision, No memory loss, No numbness, No other visual disturbances, No radicular pain, No restless legs, No sensory deficit, No syncope, No tingling, No tremor(s), No weakness and No other Exam Const General: cooperative, healthy appearing, comfortable and no acute distress HENMT Head: normal to inspection Eyes General: appearance normal, both eyes and all related structures Neck Neck: normal visual inspection Neck mass: No Resp Effort & Inspection: normal respiratory effort Auscultation: clear to auscultation bilaterally Cardio Rate: regular rate Rhythm: regular rhythm GI Inspection: normal to inspection Auscultation: normal bowel sounds Skin General: no rashes or lesions noted Neuro General: no focal motor deficits and CN's II-XI intact bilaterally Extrem General: normal to inspection Psych Appearance: grossly normal Affect: normal affect COVID (Procedure Consent) Procedure Criteria Procedure Criteria: Yes Elective The surgeon/proceduralist and patient have discussed in detail the risk of exposure to and/or potential harm posed by the COVID-19 virus with having a surgery/procedure at this time versus the risk of delaying the surgery/procedure. It is not possible to know either the risk of delaying the surgery or procedure or chance of getting an infection with perfect accuracy, but a joint decision was made between the patient and the surgeon/proceduralist to proceed at this time with the scheduled surgery/procedure as indicated on the consent form. Assessment and Plan Assessment and Plan (1) Problem with dialysis access: Status: Acute Qualifiers: Encounter type: initial encounter Qualified Code(s): T82.898A - Other specified complication of vascular prosthetic devices, implants and grafts, initial encounter Plan - Anna SHEIKH PA-C: Dr. Mcclendon will plan to perform a non-urgent right forearm fistulogram. Procedure details, risks and benefits have been explained. Patient may continue his aspirin for the procedure. Patient has had the opportunity to ask and have questions answered. Patient verbally understands and agrees with the plan. Dialysis days on M,W,F. Coding Level of Care Code Off vis,est,level 3 Diagnoses Problem with dialysis access T82.898A Encounter type: initial encounter 05/12/21911<Electronically signed by Anna SHEIKH PA-C>Date Anna SHEIKH PA-C I have re-examined the patient. There are no clinical changes since date of exam. Julio Mcclendon M.D., F.A.C.S.
--- NOTE | 2021-05-31 11:27 | OP.PCM_ITS ---
Problems Associated Problem List Diagnoses (1) Problem with dialysis access: Report of Operation Date of Procedure: 05/31/21 Pre-Operative Diagnosis: Poor blood flow right forearm radiocephalic arteriovenous hemodialysis fistula Post-Operative Diagnosis: High-grade proximal fistula venous stenosis Surgery/Procedure Performed:: Right upper extremity fistulogram with 6 x 2 Powerflex angioplasty and 6 x 2 conquest angioplasty Description of Surgical Findings:: Timeout informed consent was obtained. 65-year-old gentleman was taken to the special procedures lab placed upon the table. The right extremity sterilely prepped and draped. 50 mcg of fentanyl 1 mg of Versed were given as intravenous sedation. Ultrasound was performed suggesting venous stenosis within the proximal 4 to 5 cm of the anastomosis. Closer to the antecubital space under ultrasound guidance 2% lidocaine was instilled and then using ultrasound guidance micropuncture needle was inserted into the cephalic vein retrograde with flow. Micropuncture wire inserted 6 [place] short sheath dilator is inserted. An 035 angled Glidewire was eventually advanced past the high-grade venous stenosis. The patient then received 5000 units of heparin intravenously. I had the guidewire in the radial artery proximal to the anastomosis. A 6 x 2 Powerflex balloon was placed and the radial artery and anastomotic area was balloon angioplastied up to 18 singh of pressure. The balloon was repositioned and despite 18 singh pressure I could not get release of the tightest port string of the fistula at the curvature. So I then changed out for a 6 x 2 conquest. That balloon was insufflated at 3 different locations within the anastomotic area radial artery and proximal fistula. Subsequent to that treatment now there was good result. I completed the fistulogram through the sheath of the upper arm and chest area. The sheath was removed U suture of 4-0 nylon was placed. Hemostasis was intact. Blood loss was minimal no apparent complication. Images demonstrate a right forearm radiocephalic arteriovenous hemodialysis fistula. There is very high-grade 95% stenosis of the fistula as it sweeps in her curve at the wrist area within the first 4 to 5 cm of the fistula. There is good remainder of the forearm upper arm and central venous outflow. There is good upper arm cephalic and basilic vein outflow. There does appear to be possibly 50% stenosis of the right brachiocephalic. Pacer wires are noted from the left chest. Subsequent to the balloon angioplasty there appears to be complete resolution of the area of stenosis of the right wrist. If repeat stenosis occurs would consider utilizing a cutting balloon on the next occasion. Specimens none. Drains none. Blood loss minimal. Julio Mcclendon M.D., F.A.C.S. Surgeon: Julio Mcclendon Type of Anesthesia: IV Sedation and Local
== END 2021-05-31 23:59 | disposition home or self-care (01) ==
LOC: CLSP 09:13
PROVIDERS: PCP Family Medicine; Referring Provider Surgery; Visit Provider Surgery
DX: T82.858A Stenosis of other vascular prosthetic devices, implants and grafts, initial encounter (principal); I13.2 Hypertensive heart and chronic kidney disease with heart failure and with stage 5 chronic kidney disease, or end stage renal disease; I50.22 Chronic systolic (congestive) heart failure; I27.20 Pulmonary hypertension, unspecified; E11.22 Type 2 diabetes mellitus with diabetic chronic kidney disease; N18.5 Chronic kidney disease, stage 5; Z79.4 Long term (current) use of insulin; I25.10 Atherosclerotic heart disease of native coronary artery without angina pectoris; K76.0 Fatty (change of) liver, not elsewhere classified; I25.5 Ischemic cardiomyopathy; E78.00 Pure hypercholesterolemia, unspecified; Z95.810 Presence of automatic (implantable) cardiac defibrillator; Z87.891 Personal history of nicotine dependence; Z79.82 Long term (current) use of aspirin; Z79.899 Other long term (current) drug therapy; Y83.8 Other surgical procedures as the cause of abnormal reaction of the patient, or of later complication, without mention of misadventure at the time of the procedure
CPT/HCPCS: 36415; 36902; 76937; 80048; 85027; 99152; 99153; Q9967; C1725; C1769

== ENCOUNTER → 2021-09-06 | Outpatient (CLI) | payer MEDICARE, MEDICAID, SELFPAY ==
[2021-09-06 11:01] LABS: AST(SGOT) 18 U/L (15-37); Alanine Aminotransfer ALT/SGPT 18 U/L (16-61); Albumin, Serum 3.9 g/dL (3.2-5.0); Alkaline Phosphatase 55 U/L (45-117); Bilirubin, Direct 0.12 mg/dL (0.00-0.30); Cholesterol 215 mg/dL (200); Globulin 4.5 g/dL (2.2-4.2); High Density Lipoprotein 44 mg/dL; Protein, Total 8.4 g/dL (6.4-8.2); Thyroid Stim Hormone (TSH) 0.36 uIU/mL (0.358-3.74); Triglycerides 257 mg/dL; Very Low Density Lipoprotein 51 mg/dL (5-40)
== END | disposition home or self-care (01) ==
LOC: MTLAB 09:16
PROVIDERS: PCP Family Medicine; Referring Provider Nurse Practitioner Gerontology; Visit Provider Nurse Practitioner Gerontology
DX: E78.00 Pure hypercholesterolemia, unspecified (principal); Z79.899 Other long term (current) drug therapy
CPT/HCPCS: 36415; 80061; 80076; 84443

== ENCOUNTER → 2022-02-28 | Outpatient (CLI) | payer MEDICARE, SELFPAY ==
--- NOTE | 2022-02-28 11:33 | RAD_ITS ---
EXAM: XR CHEST, 2 VIEWS CLINICAL INDICATION: Amiodarone therapy TECHNIQUE: Frontal and lateral views of the chest. This report was created using [employer] report generation technology. COMPARISON: XR Chest dated 03/17/2021 FINDINGS: LUNGS AND PLEURAL SPACES: No gross pleural effusion. No pulmonary vascular congestion. No pneumothorax. HEART: Stable cardiomegaly. Coronary artery bypass graft (CABG). MEDIASTINUM: No mediastinal or hilar mass. BONES/JOINTS: No acute abnormality. SOFT TISSUES: Normal. TUBES, LINES AND DEVICES: AICD wire remains in place. RAD/Chest PA and Lateral IMPRESSION: No acute pulmonary abnormality. Stable cardiomegaly. Electronically Signed: Ivan Mccrary MD at 14:09 EDT ,
== END | disposition home or self-care (01) ==
LOC: RAD 11:32
PROVIDERS: PCP Family Medicine; Referring Provider Nurse Practitioner Gerontology; Visit Provider Nurse Practitioner Gerontology
DX: Z79.899 Other long term (current) drug therapy (principal)
CPT/HCPCS: 71046

== ENCOUNTER → 2022-06-01 | Outpatient (CLI) | payer MEDICARE, SELFPAY ==
[2022-06-01 13:45] VITALS: PULSE 76; PULSE 80; PULSE 84; PULSE 90; PULSE 91; PULSE 92; O2SAT 91; O2SAT 92; O2SAT 93; O2SAT 94; O2SAT 95
--- NOTE | 2022-06-02 08:30 | WT_ITS ---
PSN 6 Minute Walk Test 6 Minute Walk Test 6 Minute Walk Test: 6 Minute Walk Test PSN:6-Minute Walk Test Start: 06/01/22 13:45 Freq: Status: Active Protocol: [id number].6MINW Document 06/01/22 13:45 [facility] (Rec: 06/01/22 13:49 [facility] [id number]) 6 Minute Walk Test Date Performed 06/01/22 Time Performed 13:00 Height 5 ft 1 in Weight: 206 lb 2.115 oz Weight in Pounds 206.[address]: Carter Melendez Assistive device used: Cane Pre-test Oxygen Delivery Method Room Air Pulse Ox (%) 94 Pulse Rate (60-100 beats/min) 76 Dyspnea Farzad Scale (0-10) 0 1st minute Oxygen Delivery Method Room Air Pulse Ox (%) 94 Pulse Rate (60-100 beats/min) 84 Dyspnea Farzad Scale (0-10) 0 Number of Rests Taken 0 2nd minute Oxygen Delivery Method Room Air Pulse Ox (%) 93 Pulse Rate (60-100 beats/min) 91 Dyspnea Farzad Scale (0-10) 0 Number of Rests Taken 0 3rd minute Oxygen Delivery Method Room Air Pulse Ox (%) 92 Pulse Rate (60-100 beats/min) 92 Dyspnea Farzad Scale (0-10) 0 4th minute Oxygen Delivery Method Room Air Pulse Ox (%) 92 Pulse Rate (60-100 beats/min) 90 Dyspnea Farzad Scale (0-10) 0 Number of Rests Taken 0 5th minute Oxygen Delivery Method Room Air Pulse Ox (%) 91 Pulse Rate (60-100 beats/min) 92 Dyspnea Farzad Scale (0-10) 0 Number of Rests Taken 0 6th minute Oxygen Delivery Method Room Air Pulse Ox (%) 94 Pulse Rate (60-100 beats/min) 91 Dyspnea Farzad Scale (0-10) 0 Number of Rests Taken 0 Post-test Oxygen Delivery Method Room Air Pulse Ox (%) 95 Pulse Rate (60-100 beats/min) 80 Dyspnea Farzad Scale (0-10) 0 Full Laps Walked 12 Partial Lap, Number of Tiles Walked 23 Total Distance Walked (ft) 731 Interpretation Interpretation: The patient ambulated 731 feet over the course of 6 minutes beginning on room air with the use of a cane. Pretesting oxygen saturation was noted to be 94% on room air. With ambulation, the mary oxygen saturation was 91%. There was no significant exertional oxygen desaturation. Recommendations Recommendations: There is no indication for the use of supplemental oxygen at this time.
== END | disposition home or self-care (01) ==
LOC: PSN 13:08
PROVIDERS: PCP Family Medicine; Referring Provider Internal Medicine Critical Care Medicine; Visit Provider Internal Medicine Critical Care Medicine
DX: I27.20 Pulmonary hypertension, unspecified (principal)
CPT/HCPCS: 94618

== ENCOUNTER 2022-06-07 07:54 | Day surgery (SDC) | payer MEDICARE, MEDICAID, SELFPAY ==
[2022-06-06 07:21] VITALS: BMI 40.8
[2022-06-07 08:17] LABS: Hematocrit 38.9 % (40-54); Hemoglobin 12.1 g/dL (13.0-16.5); Mean Corp Hgb Conc 31.1 g/dL (32-36); Mean Corpuscular Hgb 25.9 pg (27.0-32.0); Mean Corpuscular Volume 83.3 fL (80-94); Mean Platelet Vol. 10.8 fl (6.2-12.0); Platelet Count 170 K/mm3 (150-450); RBC Distribution Width CV 12.5 % (11.6-14.6); RBC Distribution Width SD 37.7 fl (35.1-43.9); Red Blood Count 4.67 M/mm3 (4.6-6.2); White Blood Count 7.7 K/mm3 (4.4-11.0)
[2022-06-07 08:30] LABS: Anion Gap 8 (5-15); BUN 36 mg/dL (7-18); BUN/Creat Ratio 8.8 RATIO (10-20); Calcium,Total 8.3 mg/dL (8.5-10.1); Chloride 97 mmol/L (98-107); Creatinine, Serum 4.11 mg/dL (0.70-1.30); EST Glomerular Filtration Rate 16 mL/min (>60); Est Glom Filt Rate - Afr Amer 19 mL/min (>60); Estimated Creatinine Clearance 13.26 ml/min; Glucose 209 mg/dL (74-106); Potassium 3.7 mmol/L (3.5-5.1); Sodium Level 136 mmol/L (136-145)
--- NOTE | 2022-06-07 08:48 | HP.PCM_ITS ---
History and Physical Date of Admission: 06/07/22 Visit Reasons:?FISTULAGRAM Chief Complaint: Fistulagram Nipping Machine Operator Required: No Is patient in pain?: No Allergies No Known Allergies Allergy (Verified 05/23/22 13:35) Medications aspirin 81 mg chewable tablet 81 mg PO DAILY@0800 [facility] 03/10/14 [History Confirmed 05/23/22] gabapentin 100 mg capsule 100 mg PO DAILY 03/03/21 [History Confirmed 05/23/22] hydroxyzine HCl 25 mg tablet 25 mg PO Q8H PRN 09/01/21 [History Confirmed 05/23/22] metoprolol tartrate 25 mg tablet 25 mg PO BID 11/17/21 [History Confirmed 05/23/22] amiodarone 200 mg tablet 100 mg PO DAILY heart #45 tabs 03/07/22 [Rx Confirmed 05/23/22] simvastatin 20 mg tablet 20 mg PO QHS cholesterol #90 tabs 03/07/22 [Rx Confirmed 05/23/22] fenofibrate micronized 200 mg capsule 200 mg PO DAILY #30 caps 04/10/22 [Rx Confirmed 05/23/22] furosemide 80 mg tablet 80 mg PO BID #60 tabs 04/27/22 [Rx Confirmed 05/23/22] cholecalciferol (vitamin D3) 50 mcg (2,000 unit) capsule 50 mcg PO DAILY 05/23/22 [History Confirmed 05/23/22] glucagon 3 mg/actuation nasal spray (Baqsimi) 3 mg intranasal ONCE 05/23/22 [History Confirmed 05/23/22] insulin detemir U-100 100 unit/mL (3 mL) subcutaneous pen (Levemir FlexPen) 48 unit subcut BID 05/23/22 [History Confirmed 05/23/22] insulin lispro 100 unit/mL subcutaneous pen (Humalog KwikPen (U-100) Insulin) 10 unit subcut TID 05/23/22 [History Confirmed 05/23/22] semaglutide 0.25 mg or 0.5 mg (2 mg/1.5 mL) subcutaneous pen injector (Ozempic) 0.5 mg subcut QWEEK 05/23/22 [History Confirmed 05/23/22] sucroferric oxyhydroxide 500 mg chewable tablet (Velphoro) 500 mg PO QPC 05/23/22 [History Confirmed 05/23/22] PFSH Medical History? Abnormal stress test Angina decubitus Atherosclerosis of coronary artery bypass graft without angina pectoris Chronic renal failure, stage 5 Chronic systolic congestive heart failure Edema Essential hypertension Family history of hypertension Fatty liver Hypertriglyceridemia Ischemic cardiomyopathy Long-term use of high-risk medication Old myocardial infarction Presence of cardiac defibrillator (~08/2004) Pulmonary hypertension Pure hypercholesterolemia Tachycardia Type 2 diabetes mellitus Surgical History? Aortocoronary bypass status (~02/22/03) History of permanent cardiac pacemaker placement Family History? Mother HypertensionSister Hypertension Social History? Smoking Status:? Former smoker alcohol intake:? never substance use type:? does not use caffeine:? No HPI HPI HPI: Patient is a 66 y/o M I am following for chronic renal failure stage V. Patient was evaluated for decreased flow rates and prolonged bleeding. Patient notes his symptoms have been going on for 1 month. Patient's access flow rate was 429 in March and last month, April, was 260. Patient notes minimal amount of discomfort with needle insertion. He states he had to be taken off an hour early due to the machine alarms sounding. Patient is currently maintained on daily aspirin. Patient's last fistulogram was performed on 05/31/21 demonstrating high- grade proximal fistula venous stenosis. A 6 x 2 Powerflex angioplasty and 6 x 2 conquest angioplasty was performed with success. ROS General General: No weight change, appetite, fatigue, colon cancer, breast cancer or weakness HEENT HEENT: No difficulty swallowing, eye injury, eye surgery, swollen glands or hoarseness Endo Endocrine: Yes diabetes mellitus; No thyroid disease, thyroid cancer, Hair loss, heat intolerance or cold intolerance Skin Skin: No rash or changing moles Breast Breast: No left breast lump, right breast lump, nipple discharge, breast pain, abnormal mammogram, abnormal US or breast enlargement Musc Musculoskeletal: Yes gout; No back problems, arthritis, rheumatoid arthritis or joint pain Additional Details: muscle aches/myalgia (Bilat LE when has dialysis) and balance problems (ambulates with a cane) Cardio Cardiovascular: Yes heart disease and high blood pressure; No murmur, pacemaker, atrial fibrillation, heart attack, heart stent, palpitations, shortness of breat with exertion or chest pain Additional Details: ICD placement Psych Psychiatric: No depression, anxiety or hearing voices Resp Respiratory: No shortness of breath, No sleep apnea, No cough, No COPD, No asthma, No emphysema and No wheezing Gastro Gastrointestinal: No abdominal pain, No nausea or vomiting, No diarrhea, No constipation, No blood in stool, No acid reflux, No hemorrhoids, No ulcers, No gallbladder problem and No black,tarry stools Jose Hematologic: No blood thinners, No blood disorders, No bleeding, No anemia and No blood clots Neuro Neurologic: No system reviewed and no additional complaints, except as documented, No as per HPI, No abnormal gait, No abnormal hearing, No abnormal movements, No abnormal speech, No behavioral changes, No burning sensations, No confusion, No convulsions, No disequilibrium, No dizziness, No localized weakness, No frequent falls, No headache(s), No lack of coordination, No loss of vision, No memory loss, No numbness, No other visual disturbances, No radicular pain, No restless legs, No sensory deficit, No syncope, No tingling, No tremor(s), No weakness and No other Exam Const General: cooperative, healthy appearing, comfortable and no acute distress [facility] Head: normal to inspection Eyes General: appearance normal, both eyes and all related structures Neck Neck: normal visual inspection Neck mass: No Resp Effort & Inspection: normal respiratory effort Auscultation: clear to auscultation bilaterally Cardio Rate: regular rate Rhythm: regular rhythm GI Inspection: normal to inspection Palpation: soft Musc Cervical Spine: normal cervical lordosis Skin General: no rashes or lesions noted Neuro General: no focal motor deficits and CN's II-XI intact bilaterally Extrem Other: Right forearm AV fistula- good pulse, diminished bruit and thrill Psych Appearance: grossly normal Affect: normal affect Assessment and Plan Assessment and Plan (1) Problem with dialysis access: ?Status:?Acute ?Qualifiers: ?Encounter type:?initial encounter? Qualified Code(s):?T82.898A - Other specified complication of vascular prosthetic devices, implants and grafts, initial encounter ?Plan: Dr. Mcclendon will plan to perform a non-urgent right forearm arteriovenous fistulogram. Procedure details, risks and benefits have been explained. Patient has had the opportunity to ask and have questions answered. Patient verbally understands and agrees with the plan. He will continue on his aspirin for the procedure. Per Dr. Mcclendon's last fistulogram note, if patient were to have another fistulogram, he would consider utilizing a cutting balloon. Patient has a right forearm radiocephalic arteriovenous hemodialysis fistula that I created for him on August 06, 2020. On May 31, 2021 I did a right forearm fistulogram with 6 x 2 Powerflex angioplasty and 6 x 2 conquest angioplasty. There was stenosis of the first 4 to 5 cm of the fistula. The patient is noted to have pacer wires left chest. History and physical otherwise unchanged. Julio Mcclendon M.D., F.A.C.S.
--- NOTE | 2022-06-07 10:44 | OP.PCM_ITS ---
Report of Operation Date of Procedure: 06/07/22 Pre-Operative Diagnosis: Diminished flow and bleeding right forearm radiocephal ic arteriovenous hemodialysis fistula Post-Operative Diagnosis: Proximal fistula venous stenosis, moderate outflow brachial cephalic central venous stenosis Surgery/Procedure Performed:: Right upper extremity fistulogram with 5 x 2 cutting balloon angioplasty of the proximal fistula and 6 x 2 conquest angioplasty Description of Surgical Findings:: Timeout informed consent was obtained. 66-year-old gentleman was taken to the special procedures lab placed upon the table he received 50 mcg of fentanyl and 1 mg of Versed is intravenous sedation the right extremity was sterilely prepped and draped ultrasound was used identify the right forearm cephalic vein component of the fistula closer to the antecubital space and under ultrasound guidance 2% lidocaine was instilled as a local anesthetic. A micropuncture needle was then inserted retrograde with flow. Micropuncture wire then a 6 [place] short sheath dilator. Using an 035 angled Glidewire and a 4 [place] angled glide cath try to get access to the radial artery proximal to the anastomosis but was not able to do so I then exchanged out for a SV 5 wire keeping the wire in the distal radial artery. The patient received 5000 units of heparin. The proximal portion of the fistula over approximately 3 cm had high-grade 90% stenosis. Did Cutting Balloon angioplasty of that with several different insufflations up to a total of 10 singh of pressure. Having achieved that there was improvement but still some anastomotic proximal radial stenosis so with manipulation and changing to 4 Upper Sorbian IM cath I was able to get a Glidewire into the radial artery then switched out for the SV 5 wire again and then placed the 5 x 2 cutting balloon did balloon angioplasty of the proximal anastomosis and radial artery area but only up to a couple atmospheres of pressure. I then changed out for a Glidewire and performed 6 x 2 conquest balloon angioplasty of the proximal portion of the fistula as well. Having achieved that he felt that that area of problem was resolved completed the fistulogram of the upper arm and central venous outflow. He tolerated the pr ocedure well. Blood loss was minimal. At the completion of U suture of 4-0 nylon was placed at the sheath site and additional simple sutures: None was placed hemostasis was intact. Images demonstrate a right forearm radiocephalic arteriovenous hemodialysis fistula. There was high-grade proximal venous stenosis over a length of about 3 cm. This improved with the 5 mm cutting balloon angioplasty and 6 mm conquest angioplasty. There appears to be adequate upper arm outflow. Cephalic outflow was notable for 50% stenosis of the brachiocephalic vein with pacemaker wire seen emanating from the left into the superior vena cava. There is a conglomerate of venous overlap at the right antecubital space difficult to assess whether any clinically significant stenosis is present there. I did not obtain double access today to further inspect that area. I would anticipate potential future treatment with a 7 x 2 conquest balloon of the proximal portion of the fistula if indicated. Julio Mcclendon M.D., F.A.C.S. Surgeon: Julio Mcclendon Type of Anesthesia: Local
== END 2022-06-07 11:40 | disposition home or self-care (01) ==
PROVIDERS: PCP Family Medicine; Referring Provider Surgery; Visit Provider Surgery
DX: I87.2 Venous insufficiency (chronic) (peripheral) (principal); I13.2 Hypertensive heart and chronic kidney disease with heart failure and with stage 5 chronic kidney disease, or end stage renal disease; T82.898A Other specified complication of vascular prosthetic devices, implants and grafts, initial encounter; I50.22 Chronic systolic (congestive) heart failure; I27.20 Pulmonary hypertension, unspecified; E11.22 Type 2 diabetes mellitus with diabetic chronic kidney disease; N18.5 Chronic kidney disease, stage 5; Z79.4 Long term (current) use of insulin; I25.10 Atherosclerotic heart disease of native coronary artery without angina pectoris; K76.0 Fatty (change of) liver, not elsewhere classified; I25.5 Ischemic cardiomyopathy; I25.2 Old myocardial infarction; E78.00 Pure hypercholesterolemia, unspecified; Z95.810 Presence of automatic (implantable) cardiac defibrillator; Z95.1 Presence of aortocoronary bypass graft; Z79.82 Long term (current) use of aspirin; Z79.899 Other long term (current) drug therapy; Z87.891 Personal history of nicotine dependence; X58.XXXA Exposure to other specified factors, initial encounter
CPT/HCPCS: 36415; 36902; 76937; 80048; 85027; 99152; 99153; C1725; Q9967; C1769

== ENCOUNTER → 2022-08-08 | Outpatient (CLI) | payer MEDICARE, MEDICAID, SELFPAY ==
[2022-08-08 09:54] LABS: AST(SGOT) 19 U/L (15-37); Alanine Aminotransfer ALT/SGPT 16 U/L (16-61); Albumin, Serum 3.4 g/dL (3.2-5.0); Alkaline Phosphatase 51 U/L (45-117); Bilirubin, Direct 0.16 mg/dL (0.00-0.30); Cholesterol 153 mg/dL (200); Globulin 4.4 g/dL (2.2-4.2); High Density Lipoprotein 35 mg/dL; Protein, Total 7.8 g/dL (6.4-8.2); Thyroid Stim Hormone (TSH) 0.16 uIU/mL (0.358-3.74); Triglycerides 173 mg/dL; Very Low Density Lipoprotein 35 mg/dL (5-40)
== END | disposition home or self-care (01) ==
LOC: LAB 08:45
PROVIDERS: PCP Family Medicine; Referring Provider Nurse Practitioner Gerontology; Visit Provider Nurse Practitioner Gerontology
DX: Z79.899 Other long term (current) drug therapy (principal); E78.00 Pure hypercholesterolemia, unspecified
CPT/HCPCS: 36415; 80061; 80076; 84443

== ENCOUNTER → 2022-10-12 | Outpatient (CLI) | payer MEDICARE, MEDICAID, SELFPAY ==
[2022-10-12 12:22] LABS: Thyroid Stim Hormone (TSH) 0.58 uIU/mL (0.358-3.74)
== END | disposition home or self-care (01) ==
LOC: LAB 10:55
PROVIDERS: PCP Family Medicine; Referring Provider Internal Medicine Cardiovascular Disease; Visit Provider Internal Medicine Cardiovascular Disease
DX: R00.0 Tachycardia, unspecified (principal); Z79.899 Other long term (current) drug therapy
CPT/HCPCS: 36415; 84443

== ENCOUNTER → 2022-12-07 | Outpatient (CLI) | payer MEDICARE, MEDICAID, SELFPAY ==
--- NOTE | 2022-12-07 15:20 | RAD_ITS ---
STUDY: X-RAY CHEST REASON FOR EXAM: Male, 66 years old. Rales with malaise and chills. TECHNIQUE: Frontal and lateral views of the chest. COMPARISON: February 28, 2022. FINDINGS: Cardiomegaly, single lead cardiac pacer, sternotomy wires and changes of coronary artery bypass grafting, aortic tortuosity with calcification and mild hyperinflation with diffuse mild interstitial prominence, unchanged from prior study. Stable mild diffuse thoracic spondylosis. No new or acute finding. No abnormality of the visualized soft tissue structures of the upper abdomen. RAD/Chest PA and Lateral IMPRESSION: Stable chest with no acute superimposed findings since the prior study. Electronically Signed: Maciej Trevino MD at 15:59 EDT ,
== END | disposition home or self-care (01) ==
LOC: MTRAD 15:18
PROVIDERS: PCP Family Medicine; Visit Provider Family Medicine
DX: R53.81 Other malaise (principal); R68.83 Chills (without fever); R09.89 Other specified symptoms and signs involving the circulatory and respiratory systems
CPT/HCPCS: 71046

== ENCOUNTER 2023-01-11 10:49 | Day surgery (SDC) | payer MEDICARE, MEDICAID, SELFPAY ==
[2022-12-13 06:55] VITALS: BMI 38.9
[2023-01-11 11:14] LABS: Hematocrit 41.4 % (40-54); Hemoglobin 12.6 g/dL (13.0-16.5); Mean Corp Hgb Conc 30.4 g/dL (32-36); Mean Corpuscular Volume 85.5 fL (80-94); Platelet Count 207 K/mm3 (150-450); RBC Distribution Width CV 12.5 % (11.6-14.6); RBC Distribution Width SD 38.8 fl (35.1-43.9); Red Blood Count 4.84 M/mm3 (4.6-6.2); White Blood Count 6.7 K/mm3 (4.4-11.0)
[2023-01-11 11:26] LABS: Anion Gap 4 (5-15); BUN 42 mg/dL (7-18); BUN/Creat Ratio 9.3 RATIO (10-20); Calcium,Total 8.9 mg/dL (8.5-10.1); Chloride 102 mmol/L (98-107); Creatinine, Serum 4.52 mg/dL (0.70-1.30); EST Glomerular Filtration Rate 14 mL/min (>60); Est Glom Filt Rate - Afr Amer 17 mL/min (>60); Estimated Creatinine Clearance 11.89 ml/min; Glucose 81 mg/dL (74-106); Sodium Level 138 mmol/L (136-145)
--- NOTE | 2023-01-11 12:56 | HP.PCM_ITS ---
History and Physical Date of Admission: 01/11/23 67-year-old gentleman. I saw him November 30, 2022 because of complaint of bleeding at his right forearm radiocephalic arteriovenous hemodialysis fistula site. We tentatively have him scheduled for a fistulogram but my understanding is that that has been delayed until today. He claims that some days the fistula runs well some days it does not with need to hold extra pressure. My previous concerns was that the patient has some slight aneurysmal change of the fistula and that he is repetitively accessed at the sites of aneurysm. Previous notes reflect Visit Reasons: BLEEDING AT ACCESS SITE Chief Complaint: BLEEDING AT ACCESS SITE Allergies No Known Allergies Allergy (Verified 11/30/22 14:40) Medications aspirin 81 mg chewable tablet 81 mg PO DAILY@0800 [facility] 03/10/14 [History Confirmed 11/30/22] gabapentin 100 mg capsule 100 mg PO DAILY 03/03/21 [History Confirmed 11/30/22] hydroxyzine HCl 25 mg tablet 25 mg PO Q8H PRN Allergy Symptoms 09/01/21 [History Confirmed 11/30/22] fenofibrate micronized 200 mg capsule 200 mg PO DAILY #30 caps 04/10/22 [Rx Confirmed 11/30/22] furosemide 80 mg tablet 80 mg PO BID #60 tabs 04/27/22 [Rx Confirmed 11/30/22] cholecalciferol (vitamin D3) 50 mcg (2,000 unit) capsule 50 mcg PO DAILY 05/23/22 [History Confirmed 11/30/22] sucroferric oxyhydroxide 500 mg chewable tablet (Velphoro) 500 mg PO QPC 05/23/22 [History Confirmed 11/30/22] amiodarone 200 mg tablet See Rx Instructions .Route .COMPLEX #45 tabs 09/20/22 [Rx Confirmed 11/30/22] simvastatin 20 mg tablet See Rx Instructions .Route .COMPLEX #90 tabs 09/20/22 [Rx Confirmed 11/30/22] insulin detemir U-100 100 unit/mL (3 mL) subcutaneous pen (Levemir FlexPen) 58 unit subcut BID 10/12/22 [History Confirmed 11/30/22] metoprolol tartrate 25 mg tablet 25 mg PO BID #180 tabs 10/12/22 [Rx Confirmed 11/30/22] PFS Medical History Abnormal stress test Angina decubitus Atherosclerosis of coronary artery bypass graft without angina pectoris Chronic renal failure, stage 5 Chronic systolic congestive heart failure Edema Essential hypertension Family history of hypertension Fatty liver Hypertriglyceridemia Ischemic cardiomyopathy Long-term use of high-risk medication Old myocardial infarction Presence of cardiac defibrillator (~08/2004) Pulmonary hypertension Pure hypercholesterolemia Tachycardia Type 2 diabetes mellitus Surgical History Aortocoronary bypass status (~02/22/03) History of permanent cardiac pacemaker placement Family History Mother HypertensionSister Hypertension Social History Smoking Status: Former smoker alcohol intake: never substance use type: does not use caffeine: No HPI HPI HPI: 66-year-old gentleman is being referred by [facility] [place] for increased bleeding from his AV fistula. I have most recently assisted him on June 07, 2022 because of diminished flow and bleeding of the right forearm radiocephalic arteriovenous hemodialysis fistula. There is proximal fistula venous stenosis and moderate outflow brachiocephalic stenosis. The proximal fistula was treated with a 5 x 2 Cutting Balloon and a 6 x 2 conquest ang ioplasty. The more central veins were not treated at this setting as double access was noted obtained. My thought was using a 7 x 2 conquest balloon of the proximal fistula adjacent to radial artery if required in the future. The patient states that the blood flow was better after his most recent procedure June 07, 2022 but that he continued to have bleeding issues at that time. He states that he is expressly referred at this time because of bleeding issues. Exam Const General: cooperative, comfortable and no acute distress [facility] Head: normal to inspection Eyes General: appearance normal, both eyes and all related structures Chest Chest palpation & inspection: normal inspection of the chest Resp Effort & Inspection: normal respiratory effort Auscultation: clear to auscultation bilaterally Cardio Rate: regular rate Rhythm: regular rhythm GI Palpation: soft Musc Cervical Spine: normal cervical lordosis Neuro General: patient alert, patient awake and patient oriented x3 Extrem Other: Right upper extremity has a functioning radiocephalic arteriovenous hemodialysis fistula. There is 2 areas of slight aneurysmal change. There is a pulse thrill and bruit noted. On ultrasound inspection the arterial anastomosis appears to be patent as does the very proximal portion of the fistula that is noted there is 2 slight aneurysmal areas of change the cephalic vein appears to be patent and in the proximal forearm and upper arm. There is a nice audible bruit throughout. Psych Appearance: grossly teo Assessment & Plan Assessment/Plan (1) Problem with dialysis access: QUALIFIERS: Encounter type: initial encounter Qualified Code(s): T82.898A - Other specified complication of vascular prosthetic devices, implants and grafts, initial encounter PLAN: I am not sure today whether we will need to do single access or double access technique. Because his complaint is ready bleeding I will propose a antegrade access with flow anticipating some type of venous outflow obstruction. He has had an opportunity to ask and have questions answered. We will proceed as noted. Julio Mcclendon M.D., F.A.C.S.
--- NOTE | 2023-01-11 14:12 | PCM.OPRPT ---
Report of Operation Date of Procedure: 01/11/23 Pre-Operative Diagnosis: Increased bleeding right forearm radiocephalic arteriovenous hemodialysis fistula Post-Operative Diagnosis: Right forearm antecubital space origin of the cephalic vein high-grade 95% stenosis. 90% stenosis brachiocephalic vein Surgery/Procedure Performed:: Right upper extremity fistulogram with peripheral and central venous angioplasty Right antecubital space 6 x 40 mm conquest angioplasty and 8 x 20 mm conquest angioplasty Brachiocephalic 8 x 20 mm conquest angioplasty Description of Surgical Findings:: Timeout and informed consent was obtained. 67-year-old gentleman was taken to the special procedures lab placed him on the table with the right upper extremity was sterilely prepped and draped he received 50 mcg of fentanyl and 2 mg of Versed is intravenous sedation ultrasound was used to identify the cephalic vein close to the wrist 2% lidocaine was instilled micropuncture needle inserted micropuncture wire inserted 6 Algerian short sheath was inserted using Isovue contrast fistulogram was obtained of the right upper extremity this demonstrated significant collateral flow at the antecubital space and upon further imaging there appeared to be occlusion of the basilic vein just after its origin and high-grade 95% stenosis of the origin of the cephalic vein fortunately using an angled glide cath and Glidewire was able to gain access to the cephalic vein. I performed balloon angioplasty of the forearm cephalic vein and of the bifurcation site of the cephalic vein and basilic vein with a 6 x 4 balloon angioplasty and then of the origin of the cephalic vein with a 8 x 20 mm conquest angioplasty. All ballooning was held for 3 minutes. That demonstrated dramatic improvement was unable to get a Glidewire into the brachial cephalic. I exchanged out over a 4 Algerian glide cath to a 035 Magic wire. Then did balloon angioplasty of the central circulation of the brachiocephalic with the 8 x 20 mm conquest balloon. There was significant recoil so we reinflated that area and again there was good at least a moderate degree of recoil. Due to the positioning of that stenosis and the patient did have some discomfort with second insufflation I have elected not to pursue additional treatment of that area at this time wires and catheters and balloons were removed. The sheath site was closed with a few suture of 4-0 nylon. There was a much improved palpable thrill at the completion no apparent complication and blood loss was minimal Images demonstrate a right forearm radiocephalic arteriovenous hemodialysis fistula with retrograde flow demonstrating widely patent arterial anastomosis and excellent inflow. There is 2 areas of aneurysmal change in the mid forearm. Just proximal to at the proximal forearm there is an area of about 40% stenosis that was treated with a 6 x 40 mm conquest balloon there is occlusion of the outflow basilic vein at the antecubital space however there is marked collateralization to cubital veins and the cephalic vein is patent and through collaterals in the upper arm. The cephalic vein has a high-grade 95% stenosis at its bifurcation at that antecubital space and subsequent to angioplasty that stenosis appears to be completely resolved. The cephalic vein and basilic vein are then patent throughout the upper arm. There was high-grade 90% stenosis of the brachiocephalic vein that was marginally improved to 50 to 60% stenosis remaining. The patient was taken to recovery area in satisfactory addition. He remained quite stable. Julio Mcclendon M.D., F.A.C.S. Surgeon: Julio Mcclendon Type of Anesthesia: IV Sedation and Local
== END 2023-01-11 15:08 | disposition home or self-care (01) ==
PROVIDERS: PCP Family Medicine; Referring Provider Surgery; Visit Provider Surgery
DX: T82.898A Other specified complication of vascular prosthetic devices, implants and grafts, initial encounter (principal); I13.2 Hypertensive heart and chronic kidney disease with heart failure and with stage 5 chronic kidney disease, or end stage renal disease; I50.22 Chronic systolic (congestive) heart failure; N18.5 Chronic kidney disease, stage 5; Z79.4 Long term (current) use of insulin; I25.10 Atherosclerotic heart disease of native coronary artery without angina pectoris; I25.2 Old myocardial infarction; Z79.82 Long term (current) use of aspirin; Z79.899 Other long term (current) drug therapy; Z95.0 Presence of cardiac pacemaker; Z87.891 Personal history of nicotine dependence; X58.XXXA Exposure to other specified factors, initial encounter
CPT/HCPCS: 36415; 36902; 76937; 80048; 85027; 99152; 99153; Q9967; C1725; C1769; C1894

== ENCOUNTER → 2023-07-05 | Outpatient (CLI) | payer MEDICARE, MEDICAID, SELFPAY | END | disposition home or self-care (01) | LOC: PSN 08:23 | PROVIDERS: PCP Family Medicine; Visit Provider Nurse Practitioner Gerontology | DX: R00.0 Tachycardia, unspecified (principal); Z79.899 Other long term (current) drug therapy | CPT/HCPCS: 94060; 94726; 94729 ==

== ENCOUNTER → 2023-07-31 | Outpatient (CLI) | payer MEDICARE, MEDICAID, SELFPAY ==
--- NOTE | 2023-07-31 10:07 | ECHOD_ITS ---
Reason For Study: CAD Procedure This was a 2D Doppler, Color Flow transthoracic echocardiogram. The study was technically difficult. Unable to use Definity. Unable to obtain IV access, with 6 attempts. Exam performed in department. Left Ventricle Normal LV size. The estimated ejection fraction is 53 %. Mild segmental systolic dysfunction (see wall motion). Stage 1 diastolic dysfunction. Mid-Posterior: Mildly hypokinetic. Posterior-Basal: Severely hypokinetic. Infero-Basal: Akinetic. Mid-Inferior: Mildly hypokinetic. There are regional wall motion abnormalities as specified. The rest of the wall segments are normal. Right Ventricle Normal RV size. ICD or pacer leads identified within the right ventricle. Normal systolic function. Atria The left atrium is mildly enlarged. The right atrium is mildly enlarged. Mitral Valve Normal mitral valve. Tricuspid Valve Normal tricuspid valve. Mild (1+) tricuspid valve insufficiency. Pulmonary artery systolic pressure is 35 mmHg. Pulmonic Valve Normal pulmonic valve. Mild (1+) pulmonic valve insufficiency. Great Vessels Mildly dilated aortic root. The pulmonary artery is normal size. Inferior vena cava collapse with respiration. Pericardium/Pleural No pericardial effusion. MMode/2D Measurements & Calculations LVIDd: 5.9 cm IVSd: 1.2 cm Ao root diam: 3.9 cm LVIDs: 5.2 cm LVPWd: 0.66 cm RVDd: 3.9 cm FS: 11.7 % LAV(MOD-bp): 64.3 ml LA A4 area: 21.2 cm2 LA dimension(2D): 4.5 cm LAV(MOD-bp) Indexed: 33.7 ml/m2 LAV(MOD-sp2): 64.7 ml LAV(MOD-sp4): 59.7 ml RA A4 area: 21.5 cm2 TAPSE: 1.8 cm Time Measurements MV dec time: 0.22 sec Doppler Measurements & Calculations MV E max luma: 69.6 cm/sec MV dec slope: 320.0 cm/sec2 Ao V2 max: 156.8 cm/sec MV A max luma: 103.4 cm/sec Ao max P.8 mmHg MV E/A: 0.67 Ao V2 mean: 113.7 cm/sec Ao mean P.8 mmHg Ao V2 VTI: 35.5 cm AV (velocity ratio): 0.73 LV V1 max: 114.7 cm/sec PA V2 max: 119.6 cm/sec TR max luma: 282.8 cm/sec LV V1 max P.3 mmHg TR max P.0 mmHg LV V1 mean P.2 mmHg LV V1 mean: 84.7 cm/sec LV V1 VTI: 25.8 cm ECHO/Echo Complete Interpretation Summary Normal LV size. The estimated ejection fraction is 53 %. Mild segmental systolic dysfunction (see wall motion). Stage 1 diastolic dysfunction. Pulmonary artery systolic pressure is 35 mmHg. Ordering Physician: Azra Weinstein Referring Physician: Manuel Sandoval Performed By: Deonna Mesa RDCS
== END | disposition home or self-care (01) ==
LOC: CVS 10:05
PROVIDERS: PCP Family Medicine; Referring Provider Nurse Practitioner Gerontology; Visit Provider Nurse Practitioner Gerontology
DX: I25.5 Ischemic cardiomyopathy (principal); I25.810 Atherosclerosis of coronary artery bypass graft(s) without angina pectoris; Z95.1 Presence of aortocoronary bypass graft
CPT/HCPCS: 93306; Q9957; A4216

== ENCOUNTER → 2023-11-22 | Outpatient (CLI) | payer MEDICARE, MEDICAID, SELFPAY ==
[2023-11-22 11:30] LABS: ALB/GLOB Ratio 0.8 RATIO (0.9-2.4); AST(SGOT) 39 U/L (15-37); Alanine Aminotransfer ALT/SGPT 26 U/L (16-61); Albumin, Serum 3.7 g/dL (3.2-5.0); Alkaline Phosphatase 47 U/L (45-117); Anion Gap 12 (5-15); BUN 50 mg/dL (7-18); BUN/Creat Ratio 8.8 RATIO (10-20); Calcium,Total 8.5 mg/dL (8.5-10.1); Chloride 95 mmol/L (98-107); Cholesterol 168 mg/dL (200); EST Glomerular Filtration Rate 11 mL/min (>60); Est Glom Filt Rate - Afr Amer 13 mL/min (>60); Globulin 4.7 g/dL (2.2-4.2); Glucose 141 mg/dL (74-106); High Density Lipoprotein 45 mg/dL; Potassium 4.3 mmol/L (3.5-5.1); Protein, Total 8.4 g/dL (6.4-8.2); Sodium Level 131 mmol/L (136-145); Triglycerides 197 mg/dL; Very Low Density Lipoprotein 39 mg/dL (5-40)
== END | disposition home or self-care (01) ==
PROVIDERS: PCP Nurse Practitioner Adult Health; Referring Provider Internal Medicine Cardiovascular Disease; Visit Provider Internal Medicine Cardiovascular Disease
DX: I13.2 Hypertensive heart and chronic kidney disease with heart failure and with stage 5 chronic kidney disease, or end stage renal disease (principal); N18.6 End stage renal disease; I50.22 Chronic systolic (congestive) heart failure; Z99.2 Dependence on renal dialysis; I25.5 Ischemic cardiomyopathy; E78.5 Hyperlipidemia, unspecified; I25.810 Atherosclerosis of coronary artery bypass graft(s) without angina pectoris
CPT/HCPCS: 36415; 80053; 80061

== ENCOUNTER 2023-12-24 12:22 | Emergency (ER) | payer MEDICARE, MEDICAID, SELFPAY ==
[2023-12-24 12:32] VITALS: BP 150/68; PULSE 99; RESP 16; TEMP 36.6; O2SAT 99; BMI 39.2
--- NOTE | 2023-12-24 13:59 | EX.ED.DYSGE1 ---
HPI History of Present Illness Chief Complaint: Wound Check Informant: patient Narrative Narrative: Sent from dialysis center for fistula bleed. He finished dialysis little after 10. The difficulty controlling. He has been dialysis for 2 years now Sunday and Fridays. No chronic anticoagulants per patient. He does take a baby aspirin from records. He reports bleeding controlled in the past however is never been sent to the emergency department. 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 Obesity (BMI 30-39.9) Problem with dialysis access joint terminal attack controller current use of amiodarone Coronary artery disease Dyslipidemia End stage renal disease on dialysis Hypertriglyceridemia Chronic renal failure, stage 5 Essential hypertension Pure hypercholesterolemia Type 2 diabetes mellitus Fatty liver Old myocardial infarction Angina decubitus Long-term use of high-risk medication Edema Family history of hypertension Abnormal stress test Tachycardia Presence of cardiac defibrillator (~08/2004) Pulmonary hypertension Ischemic cardiomyopathy Chronic systolic congestive heart failure Atherosclerosis of coronary artery bypass graft without angina pectoris Home Medications ?Medication ?Instructions ?Recorded ?Last Taken ?Type aspirin 81 mg chewable tablet 81 mg PO DAILY@0800 [facility] 03/10/14 06/26/19 History gabapentin 100 mg capsule 100 mg PO DAILY 03/03/21 Unknown History sucroferric oxyhydroxide 500 mg 500 mg PO QPC 05/23/22 Unknown History chewable tablet (Velphoro) insulin detemir U-100 100 unit/mL 60 unit subcut BID 10/12/22 Unknown History (3 mL) subcutaneous pen (Levemir FlexPen) furosemide 80 mg tablet 80 mg PO BID #60 tabs 05/11/23 Unknown Rx lancets 33 gauge (OneTouch Delica #100 ea 05/24/23 Unknown History Plus Lancet) fenofibrate micronized 200 mg 200 mg PO DAILY #30 caps 07/13/23 Unknown Rx capsule simvastatin 20 mg tablet See Rx Instructions .Route 10/02/23 Unknown Rx .COMPLEX #90 tabs dapagliflozin propanediol 10 mg 10 mg PO DAILY 11/20/23 Unknown History tablet (Farxiga) metoprolol tartrate 50 mg tablet 50 mg PO BID #180 tabs 11/20/23 Unknown Rx moringa 6000mg 1 tab PO 2XD 12/06/23 Unknown History dulaglutide 1.5 mg/0.5 mL 0.75 mg subcut QWEEK 12/24/23 Unknown History subcutaneous pen injector (Trulicity) insulin lispro 100 unit/mL 20 unit subcut DAILY 12/24/23 Unknown History subcutaneous pen (Humalog KwikPen (U-100) Insulin) Allergy/AdvReac Type Severity Reaction Status Date / Time No Known Allergies Allergy Verified 12/24/23 12:35 Family History Mother Hypertension Sister Hypertension Surgical History History of permanent cardiac pacemaker placement Aortocoronary bypass status (~02/22/03) Social History Smoking Status: Former smoker alcohol intake: never substance use type: does not use caffeine: No ROS ROS ED Constitutional Constitutional ED: Denies chills, fever(s) or sweats Eyes Eyes: Denies change in vision ENT ENT ED: Denies dysphagia or sore throat Cardiovascular Cardiovascular: Denies chest pain, leg edema, palpitations or racing heartbeat Respiratory/Chest Respiratory/Chest: Denies cough, dyspnea or dyspnea on exertion Gastrointestinal Gastrointestinal: Denies abdominal pain, diarrhea, nausea or vomiting Genitourinary Genitourinary ED: Denies dysuria, hematuria or urinary frequency Musculoskeletal Musculoskeletal: Denies back pain, extremity pain or neck pain Integumentary Reports wounds and other Details: Fistula bleed ; Denies rash Neurologic Neurologic: Denies headache(s), paresthesias or weakness EXAM Physical Exam Const Vital Signs: 12/24/23 12:32 12/24/23 14:24 Temperature 97.8 F 97.9 F Temperature Source Temporal Pulse Rate 99 86 Respiratory Rate 16 16 Blood Pressure 150/68 H 132/73 H Blood Pressure Mean 95 92 Pulse Ox 99 98 Oxygen Delivery Method Room Air Positive well nourished and well developed General Appearance ED: well developed and NAD HEENT Reports moist mucous membranes normocephalic and atraumatic Eyes EOMs intact bilaterally and conjunctivae normal General Eye ED: Yes normal appearance of both eyes Neck no lymphadenopathy and supple General: Negative for tenderness Chest Wall Chest: Negative for tenderness Resp normal respiratory effort and normal air movement Effort and Inspection: symmetric chest movement; Negative for respiratory distress Cardio regular rate, regular rhythm and no murmurs Peripheral Pulses: pulses 2+ throughout GI normal to inspection, nondistended, normoactive bowel sounds and non-tender Palpation: Negative for guarding or rebound tenderness present Back/Spine no CVA tenderness and no thoracic nor lumbar tenderness Extremity normal to inspection General Extremety ED: Negative for edema or tenderness General Extremity: Negative for edema Neuro oriented x3 and no sensory deficits noted Sensorium / Orientation: awake and alert Skin Skin Narrative: Right forearm fistula with a positive thrill. Dressing was taken down, 2 puncture scabs noted lower 1 was causing the issue which is currently scabbed over. There is no current bleeding. MDM MDM MDM Narrative Medical decision making narrative: Interventions / MDM: Differential diagnosis: Fistula bleed, end-stage renal disease on dialysis Diagnosis considered but do not suspect: N/A My EKG interpretation: N/A Imaging independently reviewed and interpreted by myself: N/A External documents reviewed: N/A Test considered but not ordered:N/A ED course: Patient currently bleeding controlled with dressing taken down. Reassured at this time. Reinforced new dressing with gentle Coban with the place. Will leave on overnight and removed. Return precautions. All questions were answered. Re-evaluation: stable Disposition discussed with patient/family/significant other: Patient Case discussed with consulting clinician: N/A This note was generated with [employer] dictation software. It may contain incorrect words, spelling, and punctuation that were not noted in checking the note before signing. Discharge Plan Triage Chief Complaint: Wound Check ED Provider: Rolf Boykin Dx/Rx/DC Orders Clinical Impression: Complication of AV dialysis fistula, End-stage renal disease on hemodialysis Instructions: ED Chronic Kidney Disease (CKD) Prescriptions: No Action gabapentin 100 mg capsule 100 mg PO DAILY Velphoro 500 mg tablet,chewable 500 mg PO QPC Levemir FlexPen 100 unit/mL (3 mL) insulin pen 60 unit subcut BID (DME) lancets [OneTouch Delica Plus Lancet] 33 gauge misc See Rx Instructions .ROUTE .MEDSUPPLY Qty: 100 Patient Comments: 1 (one) lancet use as directed per instructions in pack for 3 times daily testnig Rx Instructions: As directed dapagliflozin propanediol [Farxiga] 10 mg tablet 10 mg PO DAILY Patient Comments: Take 1 tablet by mouth daily metoprolol tartrate 50 mg tablet 50 mg PO BID Qty: 180 3RF moringa 6000mg 1 tab PO 2XD aspirin 81 MG tablet,chewable 81 mg PO DAILY@0800 Patient Comments: [facility] insulin lispro [Humalog KwikPen Insulin] 100 unit/mL insulin pen 20 unit subcut DAILY Trulicity 1.5 mg/0.5 mL pen injector 0.75 mg subcut QWEEK furosemide 80 mg tablet 80 mg PO BID Qty: 60 11RF fenofibrate micronized 200 mg capsule 200 mg PO DAILY Qty: 30 12RF simvastatin 20 mg tablet See Rx Instructions .ROUTE .COMPLEX Qty: 90 3RF Dose Instruction: TAKE 1 TABLET BY MOUTH AT BEDTIME for cholesterol Rx Instructions: TAKE 1 TABLET BY MOUTH AT BEDTIME for cholesterol Primary Care Provider: RUDOLPH ZARATE Referrals: RUDOLPH ZARATE CRNP [Primary Care Provider] - 3-5 Days if not improving Activity Restrictions/Additional Instructions: Your bleeding is controlled at this time. Leave dressing on overnight and remove afterwards. Follow-up with your doctors. Return if bleeding reoccurs and not controlled with pressure. Print Language: New Zealander Disposition Disposition: Home, Self Care Discharge Date/Time: 12/24/23 14:26
[2023-12-24 14:24] VITALS: BP 132/73; PULSE 86; RESP 16; TEMP 36.6; O2SAT 98
== END 2023-12-24 14:26 | disposition home or self-care (01) ==
LOC: ED 14:09
PROVIDERS: Emergency Provider Emergency Medicine; PCP Nurse Practitioner Adult Health; Visit Provider Emergency Medicine
DX: T82.838A Hemorrhage due to vascular prosthetic devices, implants and grafts, initial encounter (principal); I13.2 Hypertensive heart and chronic kidney disease with heart failure and with stage 5 chronic kidney disease, or end stage renal disease; N18.6 End stage renal disease; I50.22 Chronic systolic (congestive) heart failure; E11.22 Type 2 diabetes mellitus with diabetic chronic kidney disease; Z79.4 Long term (current) use of insulin; E78.00 Pure hypercholesterolemia, unspecified; Z87.891 Personal history of nicotine dependence; Z99.2 Dependence on renal dialysis; I25.10 Atherosclerotic heart disease of native coronary artery without angina pectoris; Z79.85 Long-term (current) use of injectable non-insulin antidiabetic drugs
CPT/HCPCS: 99283

== ENCOUNTER → 2024-02-19 | Outpatient (CLI) | payer MEDICARE, MEDICAID, SELFPAY ==
--- NOTE | 2024-02-19 12:07 | CPS ---
ORDER DID NOT CROSS FROM [employer] IN TO PFT SYSTEM. SHENG LUZ IN I.S AWARE AND TROUBLESHOOTING. (IN EVENT RESULTS NEED MANUALLY SCANNED)
== END | disposition home or self-care (01) ==
LOC: PSN 09:22
PROVIDERS: PCP Nurse Practitioner Adult Health; Referring Provider Nurse Practitioner Acute Care; Visit Provider Nurse Practitioner Acute Care
DX: I27.20 Pulmonary hypertension, unspecified (principal)
CPT/HCPCS: 94060; 94726; 94729

== ENCOUNTER → 2024-02-21 | Outpatient (CLI) | payer MEDICARE, MEDICAID, SELFPAY ==
[2024-02-21 11:00] VITALS: PULSE 72; PULSE 76; PULSE 78; PULSE 79; PULSE 83; PULSE 84; O2SAT 91; O2SAT 92; O2SAT 93; O2SAT 94
--- NOTE | 2024-03-05 17:36 | PCM.PSN.6M ---
PSN 6 Minute Walk Test 6 Minute Walk Test 6 Minute Walk Test: 6 Minute Walk Test PSN:6-Minute Walk Test Start: 02/21/24 11:13 Freq: Status: Active Protocol: RESP.6MINW Document 02/21/24 11:00 [facility] (Rec: 02/21/24 11:18 [facility] [id number]) 6 Minute Walk Test Date Performed 02/21/24 Time Performed 11:00 Height 5 ft 1 in Weight: 87.09 kg Weight in Pounds 192.[address]: Javad Assistive device used: Cane Pre-test Oxygen Delivery Method Room Air Pulse Ox (%) 93 Pulse Rate (60-100 beats/min) 72 Dyspnea Farzad Scale (0-10) 0 Exertion Farzad Scale (6-20) 6 1st minute Oxygen Delivery Method Room Air Pulse Ox (%) 94 Pulse Rate (60-100 beats/min) 78 2nd minute Oxygen Delivery Method Room Air Pulse Ox (%) 91 Pulse Rate (60-100 beats/min) 83 3rd minute Oxygen Delivery Method Room Air Pulse Ox (%) 93 Pulse Rate (60-100 beats/min) 78 4th minute Oxygen Delivery Method Room Air Pulse Ox (%) 93 Pulse Rate (60-100 beats/min) 84 5th minute Oxygen Delivery Method Room Air Pulse Ox (%) 91 Pulse Rate (60-100 beats/min) 78 6th minute Oxygen Delivery Method Room Air Pulse Ox (%) 91 Pulse Rate (60-100 beats/min) 79 Dyspnea Farzad Scale (0-10) 0 Exertion Farzad Scale (6-20) 11 Post-test Oxygen Delivery Method Room Air Pulse Ox (%) 92 Pulse Rate (60-100 beats/min) 76 Full Laps Walked 12 Partial Lap, Number of Tiles Walked 29 Total Distance Walked (ft) 737 Interpretation Interpretation: The patient was able to ambulate 737 feet over the course of 6 minutes on room air with the assistance of a cane and no breaks. The patient did experience significant desaturation from a baseline of 94% to as low as 91%. No significant tachycardia was noted during testing. These findings are consistent with a respiratory limitation exercise tolerance. Recommendations Recommendations: No supplemental oxygen is indicated at this time. However, patient will need to be followed closely given level of desaturation.
--- NOTE | 2024-03-07 15:34 | PCM.PSN.6M ---
PSN 6 Minute Walk Test 6 Minute Walk Test 6 Minute Walk Test: 6 Minute Walk Test PSN:6-Minute Walk Test Start: 02/21/24 11:13 Freq: Status: Active Protocol: [id number] Document 02/21/24 11:00 [facility] (Rec: 02/21/24 11:18 [facility] [id number]) 6 Minute Walk Test Date Performed 02/21/24 Time Performed 11:00 Height 5 ft 1 in Weight: 87.09 kg Weight in Pounds 192.[address]: Javad Assistive device used: Cane Pre-test Oxygen Delivery Method Room Air Pulse Ox (%) 93 Pulse Rate (60-100 beats/min) 72 Dyspnea Farzad Scale (0-10) 0 Exertion Farzad Scale (6-20) 6 1st minute Oxygen Delivery Method Room Air Pulse Ox (%) 94 Pulse Rate (60-100 beats/min) 78 2nd minute Oxygen Delivery Method Room Air Pulse Ox (%) 91 Pulse Rate (60-100 beats/min) 83 3rd minute Oxygen Delivery Method Room Air Pulse Ox (%) 93 Pulse Rate (60-100 beats/min) 78 4th minute Oxygen Delivery Method Room Air Pulse Ox (%) 93 Pulse Rate (60-100 beats/min) 84 5th minute Oxygen Delivery Method Room Air Pulse Ox (%) 91 Pulse Rate (60-100 beats/min) 78 6th minute Oxygen Delivery Method Room Air Pulse Ox (%) 91 Pulse Rate (60-100 beats/min) 79 Dyspnea Farzad Scale (0-10) 0 Exertion Farzad Scale (6-20) 11 Post-test Oxygen Delivery Method Room Air Pulse Ox (%) 92 Pulse Rate (60-100 beats/min) 76 Full Laps Walked 12 Partial Lap, Number of Tiles Walked 29 Total Distance Walked (ft) 737 Interpretation Interpretation: The patient was able to ambulate 737 feet over the course of 6 minutes on room air with the assistance of a cane and no breaks. The patient did experience significant desaturation from a baseline of 94% to as low as 91%. No significant tachycardia was noted during testing. These findings are consistent with a respiratory limitation exercise tolerance. Recommendations Recommendations: No supplemental oxygen is indicated at this time. However, patient will need to be followed closely given level of desaturation.
== END | disposition home or self-care (01) ==
PROVIDERS: PCP Nurse Practitioner Adult Health; Referring Provider Nurse Practitioner Acute Care; Visit Provider Nurse Practitioner Acute Care
DX: I27.20 Pulmonary hypertension, unspecified (principal)
CPT/HCPCS: 94618

== ENCOUNTER → 2024-03-07 | Outpatient (CLI) | payer MEDICARE, MEDICAID, SELFPAY | END | disposition home or self-care (01) | LOC: SL 19:31 | PROVIDERS: PCP Nurse Practitioner Adult Health; Referring Provider Nurse Practitioner Acute Care; Visit Provider Nurse Practitioner Acute Care | DX: G47.30 Sleep apnea, unspecified (principal) | CPT/HCPCS: 95810 ==

== ENCOUNTER → 2024-06-05 | Outpatient (CLI) | payer MEDICARE, MEDICAID, SELFPAY | END | disposition home or self-care (01) | LOC: SL 11:32 | PROVIDERS: PCP Nurse Practitioner Adult Health; Referring Provider Nurse Practitioner Acute Care; Visit Provider Nurse Practitioner Acute Care | DX: Z46.89 Encounter for fitting and adjustment of other specified devices (principal); G47.33 Obstructive sleep apnea (adult) (pediatric) | CPT/HCPCS: 98960; G0463 ==

== ENCOUNTER → 2025-02-19 | Outpatient (CLI) | payer MEDICARE, MEDICAID, SELFPAY ==
--- NOTE | 2025-02-19 06:58 | ECHOD_ITS ---
Reason For Study Reason For Study: CAD Procedure This was a 2D Doppler, Color Flow transthoracic echocardiogram. Exam performed in department. Left Ventricle Normal size and thickness. Posterior basal hypokinesis. Estimated LVEF 55%. Stage I diastolic dysfunction. Right Ventricle ICD or pacer leads identified within the right ventricle. Atria The left atrium is mildly enlarged. Normal right atrium. ICD or pacer leads identified within the right atrium. Mitral Valve Trivial mitral valve insufficiency. Tricuspid Valve Mild (1+) tricuspid valve insufficiency. Right ventricular systolic pressure estimated to be 38 mmHg. Aortic Valve Trisinus/trileaflet aortic valve. Pulmonic Valve The pulmonic valve is not well visualized. Great Vessels Normal sized aortic root. Pericardium/Pleural No pericardial effusion. MMode/2D Measurements & Calculations LVIDd: 5.9 cm IVSd: 1.1 cm Ao root diam: 3.9 cm LVIDs: 4.4 cm LVPWd: 0.85 cm FS: 26.0 % LAV(MOD-bp): 42.9 ml LVAd ap4: 29.1 cm2 SV(MOD-sp4): 48.1 ml LAV(MOD-bp) Indexed: 23.4 ml/m2 LVLd ap4: 8.0 cm SI(MOD-sp4): 26.3 ml/m2 LAV(MOD-sp2): 30.9 ml EDV(MOD-sp4): 88.8 ml LAV(MOD-sp4): 48.0 ml EDV(sp4-el): 90.4 ml LVAs ap4: 18.2 cm2 LVLs ap4: 7.8 cm ESV(MOD-sp4): 40.7 ml ESV(sp4-el): 36.1 ml EF(MOD-sp4): 54.2 % EF(sp4-el): 60.0 % SV(sp4-el): 54.2 ml LA A4 area: 19.1 cm2 LA dimension(2D): 4.4 cm RA A4 area: 20.2 cm2 Doppler Measurements & Calculations Ao V2 max: 144.5 cm/sec LV V1 max: 125.7 cm/sec PA V2 max: 124.1 cm/sec Ao max P.4 mmHg LV V1 max P.3 mmHg PA V2 mean: 82.4 cm/sec Ao V2 mean: 103.3 cm/sec LV V1 mean P.7 mmHg Ao mean P.7 mmHg LV V1 mean: 91.3 cm/sec Ao V2 VTI: 27.0 cm LV V1 VTI: 26.3 cm AV (velocity ratio): 0.98 TR max luma: 287.7 cm/sec TR max P.1 mmHg ECHO/Echo Complete Interpretation Summary Posterior basal hypokinesis. Estimated LVEF 55%. Stage I diastolic dysfunction. The left atrium is mildly enlarged. Mild (1+) tricuspid valve insufficiency. Right ventricular systolic pressure estimated to be 38 mmHg. Ordering Physician: Muriel Pearson Referring Physician: Muriel Pearson Performed By: Viridiana Zarate [facility]
--- OUTSIDE RECORDS SUMMARY | 2025-02-19 06:58 | XMS RPT_ITS | CCD ---
Author Organization [facility] Care Team Providers Care Law Enforcement Officer Name Role Phone Soni GALLARDO, Hayely Green Unavailable Unavailable SAMI Taylor, Kelsy Ribera Unavailable Unavailable DeFinis, Harumi Y Unavailable Unavailable Soni RN, Hayley A Unavailable Unavailable SAMI Taylor, Kelsy M Unavailable Unavailable SAMI Taylor, Kelsy M Unavailable Unavailable SAMI Taylor, Kelsy M Unavailable Unavailable SAMI Taylor, Kelsy M Unavailable Unavailable Dr. Manuel Sandoval Primary Care Provider Vinnie SHEIKH, PAShelleyC Anna Attending Provider Dr. Kd Lopez Referring Provider Dr. Angel Lucas Attending Provider [phone] Angel Lucas Referring Provider [phone] Manuel Sandoval Referring Provider Mohsen ACADEMIC ASSISTANT, ACADEMIC ASSISTANT-C Riya Attending Provider [phone] Dr. Julio Mcclendon Attending Provider Dr. Julio Mcclendon Referring Provider Dr. Julio Mcclendon Other Provider Hannah Taylor Attending Provider Unavailable Dr. Manuel Sandoval Primary Care Provider Dr. Manuel Sandoval Referring Provider Dr. Carter Melendez Attending Provider Dr. Angel Lucas Attending Provider [phone] Js WILD, ACADEMIC ASSISTANT-C Zak Attending Provider Dr. Manuel Sandoval Primary Care Provider Dr. Manuel Sandoval Referring Provider [phone] Js ACADEMIC ASSISTANT, ACADEMIC ASSISTANT-C Zak Attending Provider Dr. Angel Lucas Attending Provider [phone] Dr. Angel Lucas Referring Provider Vinnie SHEIKH PA-C Anna Attending Provider Dr. Carter Meelndez Referring Provider Dr. Carter Melendez Other Provider Dr. Carlos Sharma Attending Provider Mohsen ACADEMIC ASSISTANT, ACADEMIC ASSISTANT-C Riya Attending Provider [phone] Dr. Julio Mcclendon Attending Provider Cebuemmanuelle, Dr. Julio Buck Referring Provider Ceivana, Dr. Julio Buck Other Provider Dr. Manuel Sandoval Primary Care Provider [phone] Manuel Sandoval Referring Provider [phone] Vinnie SHEIKH PA-Alycia Castillo Attending Provider Dr. Carter Melendez Referring Provider Dr. Carter Melendez Other Provider Dr. Carlos Sharma Attending Provider Mohsen WILD, ACADEMIC ASSISTANT-C Riya Attending Provider [phone] Dr. Julio Mcclendon Attending Provider [phone] Cebuemmanuelle, Dr. Julio Buck Referring Provider Cebuemmanuelle, Dr. Julio Buck Other Provider Js ACADEMIC ASSISTANT, ACADEMIC ASSISTANT-C Zak Attending Provider Unavailable Primary Care Provider UnavailDr. Manuel Larsen Primary Care Provider [phone] Rebecca Juan Attending Provider Unavailable Dr. Manuel Sandoval Referring Provider [phone] Hannah Taylor Attending Provider Unavailable Dr. Muriel Pearson Attending Provider Dr. Carter Melendez Attending Provider Dr. Julio Mcclendon Attending Provider Dr. Julio Mcclendon Referring Provider [phone] Dr. Julio Mcclendon Other Provider MAST UNDERWRITING ANALYST-COUPON REDEMPTION CLERK, ROSINA Primary Care [phone] Dr. Manuel Sandoval Primary Care Provider [phone] Manuel Sandoval Referring Provider [phone] Mohsen ACADEMIC ASSISTANT, ACADEMIC ASSISTANT-C Riya Attending Provider [phone] Js ACADEMIC ASSISTANT, ACADEMIC ASSISTANT-C Zak Attending Provider Dr. Manuel Sandoval Primary Care Provider Dr. Manuel Sandoval Referring Provider Mohsen ACADEMIC ASSISTANT, ACADEMIC ASSISTANT-C Riya Attending Provider Js WILD, ACADEMIC ASSISTANT-C Zak Attending Provider Dr. Biju Champion Attending Provider Elis NAYAK, Andrea Moss Unavailable MAST UNDERWRITING ANALYST-COUPON REDEMPTION CLERK, ROSINA Attending Unavailabl e MAST UNDERWRITING ANALYST-COUPON REDEMPTION CLERK, ROSINA Primary Care Unavailabl e MAST UNDERWRITING ANALYST-COUPON REDEMPTION CLERK, ROSINA Attending Unavailabl e MAST UNDERWRITING ANALYST-COUPON REDEMPTION CLERK, ROSINA Primary Care Unavailabl e Unavailable Primary Care Provider Unavailabl e KANDI RUIZ Attending Unavailable MAST, ROSINA Referring Unavailable Unavailable Primary Care Provider Unavailabl e Unavailable Primary Care Provider Unavailabl e MAST HEAD OF RESEARCH & INSIGHTS, ROSINA Primary Care Provider [phone] Dr. Biju Champion MD Attending Provider [phone] Dr. Biju Champion MD Referring Provider [phone] MAST HEAD OF RESEARCH & INSIGHTS, ROSINA Referring Provider Mohsen WILD-CRiya Attending Provider ROMY FISH Referring Unavailable PHILIP BLANK Attending Unavailable Margo VALERIE, Maureen S Unavailable [phone] MAST HEAD OF RESEARCH & INSIGHTS, ROSINA Primary Care Provider [phone] Dr. Biju Champion MD Attending Provider [phone] Dr. Biju Champion MD Referring Provider MAST HEAD OF RESEARCH & INSIGHTS, ROSINA Referring Provider [phone] Michel NAYAK, Dr. Llamas Attending Provider [phone] MAST UNDERWRITING ANALYST-COUPON REDEMPTION CLERK, ROSINA Primary Care Unavailabl e DOROTEO NAYAK, DR SAMUELS Attending Unavailabl e MAST UNDERWRITING ANALYST-COUPON REDEMPTION CLERK, ROSINA Primary Care Unavailabl e ELIAN ROSARIO, DR GINA Connor Attending Unavailable MAST UNDERWRITING ANALYST-COUPON REDEMPTION CLERK, ROSINA Attending Unavailabl e MAST UNDERWRITING ANALYST-COUPON REDEMPTION CLERK, ROSINA Primary Care Unavailabl e MAST UNDERWRITING ANALYST-COUPON REDEMPTION CLERK, ROSINA Primary Care Unavailabl e MAST UNDERWRITING ANALYST-COUPON REDEMPTION CLERK, ROSINA Attending Unavailabl e MAST UNDERWRITING ANALYST-COUPON REDEMPTION CLERK, ROSINA Primary Care Unavailabl e MAST UNDERWRITING ANALYST-COUPON REDEMPTION CLERK, ROSINA Attending Unavailabl e MAST, ROSINA Primary Care Unavailable Connolly ACADEMIC ASSISTANT, Riya Attending Unavailable Connolly ACADEMIC ASSISTANT, Riya Referring Unavailable MAST, ROSINA Primary Care Unavailable Connolly ACADEMIC ASSISTANT, Riya Attending Unavailable Connolly ACADEMIC ASSISTANT, Riya Referring Unavailable MAST, ROSINA Primary Care Unavailable Connolly ACADEMIC ASSISTANT, Riya Attending Unavailable Connolly ACADEMIC ASSISTANT, Riya Referring Unavailable MAST, ROSINA Primary Care Unavailable Connolly ACADEMIC ASSISTANT, Riya Consulting Unavailable Connolly ACADEMIC ASSISTANT, Riya Referring Unavailable Carter Melendez Attending Unavailable MAST, ROSINA Primary Care Unavailable MAST, ROSINA Referring Unavailable Connolly ACADEMIC ASSISTANT, Riya Attending Unavailable MAST, ROSINA Primary Care Unavailable Akira, Calcium Referring Unavailable Akira, Calcium Attending Unavailable MAST, ROSINA Primary Care Unavailable MAST, ROSINA Referring Unavailable Michel, Muriel Attending Unavailable MAST, ROSINA Primary Care Unavailable Akira, Biju Attending Unavailable MAST, ROSINA Primary Care Unavailable MAST, ROSINA Referring Unavailable Connolly ACADEMIC ASSISTANT, Riya Attending Unavailable Akira, Biju Referring Unavailable MAST, ROSINA Primary Care Unavailable Akira, Calcium Attending Unavailable Akira, Biju Referring Unavailable MAST, ROSINA Primary Care Unavailable MAST, ROSINA Referring Unavailable Michel, Muriel Attending Unavailable MAST, ROSINA Primary Care Unavailable Akira, Calcium Attending Unavailable Akira, Biju Referring Unavailable MAST, ROSINA Primary Care Unavailable Carlos Sharma Attending Unavailable Connolly ACADEMIC ASSISTANT, Riya Referring Unavailable MAST, ROSINA Primary Care Unavailable Michel, Muriel Referring Unavailable Michel, Muriel Attending Unavailable MAST, ROSINA Primary Care Unavailable Connolly ACADEMIC ASSISTANT, Riya Referring Unavailable Connolly ACADEMIC ASSISTANT, Riya Attending Unavailable Allergies Allergy Classification Reported Allergen(s) Allergy Type Date of Onset Reaction(s) Facility (1 source) ALLERGIES NOT ON FILE; Translations: [ALLERGIES NOT ON FILE] Propensity to adverse reactions (disorder) [facility] Medications Current Medications Medication Drug Class(es) Dates Sig (Normalized) Sig (Original) acetaminophen 500 mg oral tablet (20 sources) Start: 02-06-2024 acetaminophen 500 mg oral tablet Dose : 1,000 mg = 2 tab(s), Oral, TID, PRN pain or fever, 0 Refill(s) Start Date: 02/06/24 Status: Ordered Medication Dispense Status: Completed Total Allowed Fills: 1 Fills Dispensed: 0 Start: 02-07-2020 End: 09-01-2021 Acetaminophen 325 MG tablet Discontinued 650 mg PO EVERY 6 HOURS NEEDED as needed for Pain Score 1-10/Temp > 100.7 F 0 February 07, 2020 12:00am September 01, 2021 10:34am Start: 02-07-2020 End: 09-01-2021 take 650 mg by mouth every six hours as needed Acetaminophen Discontinued 650 MG PO EVERY 6 HOURS NEEDED February 07, 2020 12:00am September 01, 2021 10:34am Start: 01-22-2019 End: 11-27-2019 take 1 tablet by mouth twice daily as needed for pain Acetaminophen 500 mg tablet Discontinued 500 mg PO TWICE DAILY NEEDED as needed for Pain Or Fever January 22, 2019 12:00am November 27, 2019 3:07pm amiodarone hydrochloride 200 mg oral tablet (20 sources) Antiarrhythmic Start: 09-02-2024 End: 01-08-2025 amiodarone 200 mg oral tablet Dose : 200 mg = 1 tab(s), Oral, qDay, # 30 tab(s), 5 Refill(s), Pharmacy: [facility] - [id number], 160, cm, 12/04/24 9:21:00 EDT, Height, kg, 12/11/24 14:07:00 EDT, Dosing Weight Start Date: 12/12/24 Status: Ordered Medication Dispense Status: Completed Quantity: 30.0 Unit: tab(s) Total Allowed Fills: 6 Fills Dispensed: 0 Start: 02-06-2024 amiodarone 200 mg oral tablet Dose : 200 mg = 1 tab(s), Oral, qDay, 0 Refill(s) Start Date: 02/06/24 Status: Ordered Start: 12-06-2023 End: 12-06-2023 Amiodarone 200 mg tablet Discontinued 100 mg PO DAILY December 06, 2023 12:00am December 06, 2023 11:43am Start: 06-12-2023 End: 12-09-2023 amiodarone 200 mg oral table t Dose : 200 mg = 1 tab(s), Oral, qDay, # 30 tab(s), 5 Refill(s), Pharmacy: [facility] - [id number], 160, cm, 06/12/23 10:27:00 EST, Height, kg, 06/12/23 10:27:00 EST, Dosing Weight Start Date: 06/12/23 Stop Date: 12/09/23 Status: Ordered Start: 06-05-2023 End: 11-20-2023 Amiodarone 200 mg tablet Discontinued 100 mg PO DAILY 45 3 October 02, 2023 1:20pm November 20, 2023 2:04pm Start: 09-20-2022 End: 06-05-2023 take 0.5 tablet by mouth once daily Amiodarone 200 mg tablet Discontinued 0 .ROUTE .COMPLEX 45 September 20, 2022 9:48am June 05, 2023 4:20pm TAKE 1/2 (ONE-HALF) OF A TABLET BY MOUTH DAILY for heart Start: 05-22-2017 End: 09-20-2022 Amiodarone 200 mg tablet Discontinued 100 mg PO DAILY 45 3 March 07, 2022 2:55pm September 20, 2022 9:48am heart Start: 05-22-2017 End: 06-05-2023 take 100 mg by mouth once daily Amiodarone Discontinue d 100 MG PO DAILY March 07, 2022 2:55pm September 20, 2022 9:48am Start: 11-13-2014 take 1 tablet by amy th once daily AMIODARONE HCL 200 MG TABS One half tablet by mouth daily AMIODARONE HCL [id number] Angel Lucas MD Start: 11-13-2014 take 1 tablet by amy th twice daily, then take 1 tablet by mouth once daily AMIODARONE HCL 200 MG TABS One tablet by mouth twice daily X 2 wks, then one tablet daily beginning 11/27/14 AMIODARONE HCL [id number] Amy Neri RN Start: 11-13-2014 take 1 tablet by amy th once daily AMIODARONE HCL 100 MG TABS One tablet by mouth daily AMIODARONE HCL [id number] Angel Lucas MD Comment on above: TAKE 1/2 (ONE-HALF) OF A TABLET BY MOUTH DAILY for heart ammonium lactate 12% topical lotion (4 sources) Start: 11-15-2023 ammonium lactate 12% topical lotion 0 Refill(s), 91.6 Start Date: 11/15/23 Status: Ordered Medication Dispense Status: Completed Total Allowed Fills: 1 Fills Dispensed: 0 Start: 11-15-2023 ammonium lacta te 12% topical lotion 0 Refill(s), 91.6 Start Date: 11/15/23 Status: Ordered aspirin 81 mg delayed release oral tablet (20 sources) Nonsteroidal Anti-inflammatory Drug Start: 03-10-2014 End: 01-29-2024 take 1 tablet by mouth once daily Aspirin 81 MG tablet,chewable Discontinued 81 mg PO DAILY@0800 March 10, 2014 1:00am January 29, 2024 8:05am [facility] Start: 08-02-2010 aspirin 81 mg oral delayed release tablet Dose : 81 mg = 1 tab(s), Oral, qDay, # 30 tab(s), 11 Refill(s), Pharmacy: [place] [id number], 160, cm, 12/04/24 9:21:00 EDT, Height, kg, 12/11/24 14:07:00 EDT, Dosing Weight Start Date: 12/12/24 Status: Ordered Medication Dispense Status: Completed Quantity: 30.0 Unit: tab(s) Total Allowed Fills: 12 Fills Dispensed: 0 Start: 08-02-2010 take 1 tablet by amy th once daily ECOTRIN LOW STRENGTH 81 MG TBEC One tablet by mouth daily ASPIRIN [id number] Ruby Schulz Comment on above: Take by mouth. [id number]-cord-rhod-P.gi nseng 28-94-91-400 mg cap (10 sources) Start: 02-07-2023 [id number]-cor d-rhod-P.gin jared 94-61-96-400 mg cap cordyceps 02/07/2023 Active Start: 02-07-2023 V7-P2-CPQL-cor d-rhod-P.ginseng 72-72-13-400 mg cap cordyceps 0 02/07/2023 Active Comment on above: cordyceps Blood-Glucose Sensor (Dexcom G6 Sensor) device (2 sources) Start: 01-29-2024 Blood-Glucose Sensor (Dexcom G6 Sensor) device Active 0 .Route January 29, 2024 12:00am As directed cholecalciferol 0.025 mg oral capsule (20 sources) Vitamin D Start: 01-29-2024 take 1 capsule by mouth once daily Cholecalciferol (Vitamin D3) 25 mcg (1,000 unit) capsule Active 25 ug PO daily January 29, 2024 12:00am Start: 05-23-2022 End: 12-06-2023 take 1 capsule by mouth once daily Cholecalciferol (Vitamin D3) 50 mcg (2,000 unit) capsule Discontinued 50 ug PO DAILY May 23, 2022 1:00am December 06, 2023 11:31am Comment on above: Take by mouth. cordyceps (1 source) Start: 06-12-2023 cordyceps cordyceps, 0 Refill(s) Start Date: 06/12/23 Status: Ordered D3 (5 sources) Start: 06-12-2023 take 1 dose by mouth once daily D3 Oral, qDay, 0 Refill(s) Start Date: 06/12/23 Status: Ordered Medication Dispense Status: Completed Total Allowed Fills: 1 Fills Dispensed: 0 Start: 06-12-2023 D3 Oral, qDay, 0 Refill(s) Start Date: 06/12/23 Status: Ordered Dexcom G6 Sensor (1 source) Start: 02-01-2024 Dexcom G6 Sensor See Instructions, Place one sensor to the abdomen every 10 days. Use reader or phone ofelia for daily blood sugar checks. 1 month supply., # 1 EA, 5 Refill(s), Pharmacy: [place] [id number], 155, cm, 01/15/24 15:29:00 EDT, Height, 93, kg, 01/22/24 14:02:00 EDT, Dosing Weight Start Date: 02/01/24 Status: Ordered 0.5 ML dulaglutide 6 MG/ML Auto-Injector [Trulicity] (20 sources) GLP-1 Receptor Agonist Start: 09-04-2024 inject 1 dose by subcutaneous injection every week Trulicity Pen 3 mg/0.5 mL subcutaneous solution Dose : 3 mg =, Subcutaneous, qWeek, rotate injection sites, # 2 mL, 6 Refill(s), Pharmacy: [place] [id number], 160, cm, 06/17/24 9:00:00 EST, Height, kg, 06/17/24 9:00:00 EST, Dosing Weight Start Date: 09/04/24 Status: Ordered Medication Dispense Status: Completed Quantity: 2.0 Unit: mL Total Allowed Fills: 7 Fills Dispensed: 0 Start: 02-18-2024 inject 1 dose by sub cutaneous injection every week Trulicity Pen 3 mg/0.5 mL subcutaneous solution Dose : 3 mg =, Subcutaneous, qWeek, rotate injection sites, # 2 mL, 6 Refill(s), Pharmacy: [place] [id number], 158, cm, 02/06/24 12:39:00 EDT, Height, kg, 02/06/24 12:39:00 EDT, Dosing Weight Start Date: 02/18/24 Status: Ordered Start: 01-29-2024 Dulaglutide (T rulicity) 1.5 mg/0.5 mL pen injector Active 1.5 mg SC EVERY WEEK January 29, 2024 12:05pm Start: 12-24-2023 End: 01-29-2024 Dulaglutide (Trulicity) 1.5 mg/0.5 mL pen injector Discontinued 0.75 mg SC EVERY WEEK December 24, 2023 12:00am January 29, 2024 12:20pm Start: 12-06-2023 End: 12-24-2023 Dulaglutide (Trulicity) 1.5 mg/0.5 mL pen injector Discontinued 1.5 mg SC EVERY WEEK 2 5 December 06, 2023 12:00am December 24, 2023 12:42pm Type 2 diabetes mellitus Type 2 diabetes mellitus without complications Start: 06-12-2023 End: 02-27-2025 Dulaglutide (Trulicity) 0.75 mg/0.5 mL pen injector Discontinued 0.75 mg SC EVERY WEEK November 20, 2023 1:27pm December 06, 2023 12:41pm Start: 05-24-2023 End: 11-20-2023 Dulaglutide (Trulicity) 0.75 mg/0.5 mL pen injector Discontinued mg SC May 24, 2023 1:00am November 20, 2023 1:28pm Start: 02-06-2023 End: 06-27-2025 TRULICITY 1.5 mg/0.5 mL pen injector INJECT one pen OF solution INTRAMUSCULARLY weekly 02/06/2023 Active Comment on above: INJECT one pen OF so lution INTRAMUSCULARLY weekly fenofibrate 200 mg oral capsule (20 sources) Peroxisome Proliferator Receptor alpha Agonist Start: 06-12-2023 fenofibrate fenofibrate, 200 mg, 0 Refill(s) Start Date: 06/12/23 Status: Ordered Start: 03-17-2021 End: 01-03-2024 fenofibrate micronized 200 m g oral capsule Dose : 200 mg = 1 cap(s), Oral, qDay, # 30 cap(s), 5 Refill(s), Pharmacy: [facility] [id number], 160, cm, 09/11/23 9:04:00 EDT, Height, kg, 09/11/23 9:04:00 EDT, Dosing Weight Start Date: 09/11/23 Status: Ordered Medication Dispense Status: Completed Quantity: 30.0 Unit: cap(s) Total Allowed Fills: 6 Fills Dispensed: 0 Start: 08-02-2010 End: 10-01-2013 take 1 tablet by mouth at bedtime TRICOR 145 MG TABS One tablet by mouth at bedtime. FENOFIBRATE [id number] Angel Lucas MD take 1 tablet by amy th once daily fenofibrate (Tricor) 48 MG tablet Take 48 mg by mouth daily. Active 0.2 ml glucagon 5 mg/ml auto-injector (14 sources) Antihypoglycemic Agent Start: 02-28-2024 inject 0.2 mL by subcutaneous injection once as needed glucagon (Gvoke HypoPen 2-Pack) 1 MG/0.2ML injection Indications: Type 2 diabetes mellitus with hyperglycemia, with long-term current use of insulin ([facility]) Inject 0.2 mL (1 mg) under the skin Once as needed for low blood sugar for up to 8 doses. 2 each 3 02/28/2024 Active Start: 05-23-2022 End: 10-12-2022 Glucagon (Baqsimi) 3 mg/actu ation spray,non-aerosol Discontinued 3 mg INTRANASAL ONCE May 23, 2022 1:00am October 12, 2022 10:07am as a single dose Start: 12-07-2021 End: 08-30-2023 glucagon (BAQSIMI) 3 mg/actu ation nasal spray Use 1 [place] in the nose. 0 12/07/2021 08/30/2023 Discontinued Comment on above: Use 1 [place] in the n ose. Glucose (1 source) Start: 02-28-20 End: 02-28-20 glucose 4 g chewable tablet Indications: Type 2 diabetes mellitus with hyperglycemia, with long-term current use of insulin ([facility]) Chew 4 tablets (16 g) Daily as needed for low blood sugar. 50 tablet 3 02/28/2024 02/27/2025 Active hydrOXYzine hydrochloride 25 mg oral tablet (20 sources) Antihistamine Start: 01-03-20 End: 01-29-20 take 1 tablet by mouth at bedtime Hydroxyzine Hcl 25 mg tablet Active 25 mg PO AT BEDTIME January 29, 2024 12:04pm Start: 06-12-2023 take 1 dose by mouth four times daily Atarax use hydrOXYzine hydrochloride Dose : 25 mg =, Oral, QID, 0 Refill(s) Start Date: 06/12/23 Status: Ordered Start: 10-19-2022 hydrOXYzine pa moate (VISTARIL) 25 mg capsule Take by mouth q 8 HR. 10/19/2022 Active Start: 09-01-2021 End: 12-06-2023 take 1 tablet by mouth every eight hours as needed Hydroxyzine Hcl 25 mg tablet Discontinued 25 mg PO Q8H as needed for Allergy Symptoms September 01, 2021 10:33am December 06, 2023 11:31am Start: 07-20-2020 End: 09-01-2021 take 1 tablet by mouth once Hydroxyzine Hcl 25 mg tabl et Discontinued 25 mg PO ONCE July 20, 2020 12:00am September 01, 2021 10:37am Comment on above: Take by mouth q 8 HR . 3 ml insulin glargine 100 unt/ml pen injector (5 sources) Insulin Analog Start: 01-08-2025 Insulin Glargine (Lantus Solostar U-100 Insulin) 100 unit/mL (3 mL) insulin pen Active 10 U SC daily January 08, 2025 10:27am Start: 09-02-2024 End: 01-08-2025 Insulin Glargine (Lantus Nara ostar U-100 Insulin) 100 unit/mL (3 mL) insulin pen Discontinued U SC September 02, 2024 12:00am January 08, 2025 10:29am Start: 03-03-2024 End: 02-26-2025 inject 1 dose by subcutaneous injection once daily Lantus Solostar Pen 100 units/mL 3 mL Pen Dose : 50 unit(s) =, Subcutaneous, qDay, # 15 mL, 11 Refill(s), Pharmacy: [facility] [id number], 158, cm, 02/06/24 12:39:00 EDT, Height, kg, 02/06/24 12:39:00 EDT, Dosing Weight Start Date: 03/03/24 Stop Date: 02/26/25 Status: Ordered Medication Dispense Status: Completed Quantity: 15.0 Unit: mL Total Allowed Fills: 12 Fills Dispensed: 0 3 ml insulin lispro 100 unt/ml pen injector (20 sources) Insulin Analog Start: 01-08-2025 Insulin Lispro (Humalog Kwikpen Insulin) 100 unit/mL insulin pen Active 3 U SC THREE TIMES A DAY January 08, 2025 10:27am Start: 06-19-2024 End: 01-08-2025 Insulin Lispro (Humalog Kwik pen Insulin) 100 unit/mL insulin pen Discontinued 4 U SC DAILY June 19, 2024 10:42am January 08, 2025 10:29am Start: 05-02-2024 Insulin Lispro KwikPen 100 units/mL injectable solution Dose : 20 unit(s) =, Subcutaneous, TIDAC, in lieu of PCP, # 30 mL, 0 Refill(s), Pharmacy: [place] [id number], 158, cm, 02/06/24 12:39:00 EDT, Height, kg, 03/21/24 15:29:00 EST, Dosing Weight Start Date: 05/02/24 Status: Ordered Medication Dispense Status: Completed Quantity: 30.0 Unit: mL Total Allowed Fills: 1 Fills Dispensed: 0 Start: 02-28-2024 insulin lispro (HumaLOG) 100 UNIT/ML pen injection Indications: Type 2 diabetes mellitus with hyperglycemia, with long-term current use of insulin (HCC) 10 units TIDWC + SSI MDD 70 units 100 mL 3 02/28/2024 Active Start: 01-25-2024 Insulin Lispro KwikPen 100 units/mL injectable solution Dose : 20 unit(s) =, Subcutaneous, TIDAC, # 30 mL, 1 Refill(s), Pharmacy: [place] [id number], 155, cm, 01/15/24 15:29:00 EDT, Height, kg, 01/22/24 14:02:00 EDT, Dosing Weight Start Date: 01/25/24 Status: Ordered Start: 12-24-2023 End: 06-19-2024 Insulin Lispro (Humalog Kwik pen Insulin) 100 unit/mL insulin pen Discontinued 20 U SC DAILY December 24, 2023 12:00am June 19, 2024 10:42am Start: 12-17-2023 End: 12-24-2023 Insulin Lispro (Humalog Kwik pen Insulin) 100 unit/mL insulin pen Discontinued 20 U SC THREE TIMES A DAY 18 5 December 17, 2023 12:00am December 24, 2023 12:42pm Type 2 diabetes mellitus Type 2 diabetes mellitus with diabetic chronic kidney disease End stage renal disease 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 Dependence on renal dialysis Start: 12-06-2023 End: 12-17-2023 Insulin Lispro 100 unit/mL i nsulin pen Discontinued 10 U SC 3 times per day with meals December 06, 2023 12:00am December 17, 2023 4:21pm Start: 02-16-2023 inject 12 [IU] by lucas bcutaneous injection at mealtime, then inject 4 [IU] by subcutaneous injection once daily insulin lispro (HUMALOG KWIKPEN) 100 unit/mL Inject 12 units subcutaneously before each meal and/or 4 units before snack, max daily dose 48 Unit 02/16/2023 Active Start: 05-23-2022 End: 10-12-2022 Insulin Lispro (Humalog Kwik pen Insulin) 100 unit/mL insulin pen Discontinued 10 U SC THREE TIMES A DAY May 23, 2022 1:00am October 12, 2022 10:07am End: 02-28-2024 insulin lispro (HumaLOG) 100 UNIT/ML pen injection Inject under the skin 3 times daily (with meals). PER SSI 02/28/2024 Discontinued (Reorder) Comment on above: Inject 12 units subc utaneously before each meal and/or 4 units before snack, max daily dose 48 Unit ammonium lactate 120 mg/ml topical lotion (2 sources) Start: 01-29-2024 Ammonium Lactate 12 % lotion Active [facility] TOPICAL January 29, 2024 12:00am latanoprost 0.05 mg/ml ophthalmic solution (6 sources) Prostaglandin Analog Start: 01-29-2024 Latanoprost 0.005 % drops Active [facility] OPHTHALMIC January 29, 2024 12:00am Start: 12-21-2023 take 0.5 [IU] into t he eye(s) once daily latanoprost 0.005% ophthalmic solution Dose = 1 drop(s), Eyes, both, qDay, # 2.5 mL, 0 Refill(s), Pharmacy: [place] [id number], 155, cm, 12/18/23 9:01:00 EDT, Height, kg, 12/18/23 9:01:00 EDT, Dosing Weight Start Date: 12/21/23 Status: Ordered Medication Dispense Status: Completed Quantity: 2.5 Unit: mL Total Allowed Fills: 1 Fills Dispensed: 0 Start: 12-21-2023 take 1 dose into the eye(s) once daily latanoprost 0.005% ophthalmic solution Dose = 1 drop(s), Eyes, both, qDay, # 2.5 mL, 0 Refill(s), Pharmacy: [place] [id number], 155, cm, 12/18/23 9:01:00 EDT, Height, kg, 12/18/23 9:01:00 EDT, Dosing Weight Start Date: 12/21/23 Status: Ordered metoprolol (20 sources) beta-Adrenergic Carlin Start: 02-06-2024 METOPR OLOL TARTRATE 50 MG TABS METOPROLOL TARTRATE 50 MG TABS, 0 Refill(s), 93 Start Date: 02/06/24 Status: Ordered Medication Dispense Status: Completed Total Allowed Fills: 1 Fills Dispensed: 0 Start: 02-06-2024 METOPROLOL TAR TRATE 50 MG TABS METOPROLOL TARTRATE 50 MG TABS, 0 Refill(s), 93 Start Date: 02/06/24 Status: Ordered Start: 11-20-2023 End: 01-03-2024 take 1 tablet by mouth twice daily Metoprolol Tartrate 50 mg tablet Active 50 mg PO TWICE A DAY 60 January 03, 2024 1:25pm Start: 03-16-2023 take 1 tablet by amy th every twelve hours metoprolol tartrate, short acting, (LOPRESSOR) 25 mg tablet Take 1 tablet by mouth every 12 hours. 03/16/2023 Active Start: 09-20-2022 End: 11-20-2023 take 1 tablet by mouth twice daily Metoprolol Tartrate 25 mg tablet Discontinued 25 mg PO TWICE A DAY 180 3 October 02, 2023 1:20pm November 20, 2023 2:04pm Start: 11-17-2021 End: 09-20-2022 take 0.5 tablet by mouth twice daily in the morning Metoprolol Tartrate 25 mg tablet Discontinued 25 mg PO TWICE A DAY November 17, 2021 1:35pm September 20, 2022 9:48am 1/2 a pill in the morning and 1/2 a pill in the evening Start: 02-07-2020 End: 11-17-2021 take 1 tablet by mouth twice daily Metoprolol Tartrate 25 mg tablet Discontinued 25 mg PO TWICE A DAY 60 March 14, 2021 2:09pm September 01, 2021 10:46am Start: 08-02-2010 End: 02-07-2020 take 1 tablet by mouth twice daily Metoprolol Tartrate 100 mg tablet Discontinued 100 mg PO TWICE A DAY 180 4 March 14, 2019 4:24pm February 01, 2020 4:03pm Comment on above: Take 1 tablet by amy th every 12 hours. moringa (4 sources) Start: 11-15-2023 moringa moringa, 0 Refill(s), 91.6 Start Date: 11/15/23 Status: Ordered Medication Dispense Status: Completed Total Allowed Fills: 1 Fills Dispensed: 0 Start: 11-15-2023 moringa moring a, 0 Refill(s), 91.6 Start Date: 11/15/23 Status: Ordered moringa 6000mg (2 sources) Start: 12-06-2023 take 6000 mg by mouth twice daily moringa 6000mg Active 1 {tbl} PO 2 times daily December 06, 2023 12:00am ondansetron 4 mg disintegrating oral tablet (1 source) Serotonin-3 Receptor Antagonist Start: 02-05-2024 End: 02-08-2024 ondansetron 4 mg oral tablet, disintegrating Dose : 4 mg = 1 tab(s), Oral, TID, X 3 day(s), # 10 tab(s), 0 Refill(s), 02/08/24 9:39:00 PM EDT Start Date: 02/05/24 Stop Date: 02/08/24 Status: Ordered Pen needles 4 mm (2 sources) Start: 07-08-2024 Pen needles 4 mm See Instructions, Use one pen needle to inject insulin ___ as directed. qs for 1 month supply, # 100 EA, 3 Refill(s), Pharmacy: [facility] [id number], 160, cm, 06/17/24 9:00:00 EST, Height, 88.9, kg, 06/17/24 9:00:00 EST, Dosing Weight Start Date: 07/08/24 Status: Ordered Medication Dispense Status: Completed Quantity: 100.0 Unit: EA Total Allowed Fills: 4 Fills Dispensed: 0 Semaglutide (10 sources) Start: 03-03-2021 Semaglutide (Ozempic) 1 mg/dose (4 mg/3 mL) pen injector Active 1 MG SC EVERY WEEK March 03, 2021 11:29am Start: 03-03-2021 End: 05-23-2022 Semaglutide (Ozempic) 1 mg/d ose (4 mg/3 mL) pen injector Discontinued 1 mg SC EVERY WEEK March 03, 2021 12:00am May 23, 2022 3:18pm Start: 03-03-2021 End: 05-23-2022 Semaglutide (Ozempic) 1 mg/d ose (4 mg/3 mL) pen injector Discontinued 1 MG SC EVERY WEEK March 03, 2021 12:00am May 23, 2022 3:18pm Start: 03-03-2021 End: 05-23-2022 Semaglutide (Ozempic) 1 mg/d ose (4 mg/3 mL) pen injector Discontinued 1 MG SC EVERY WEEK March 02, 2021 11:00pm May 23, 2022 2:18pm Start: 03-03-2021 Semaglutide (O zempic) 1 mg/dose (4 mg/3 mL) pen injector Active 1 MG SC EVERY WEEK March 03, 2021 12:00am semaglutide (OZEMPIC) 1 mg/dose (4 mg/3 mL) pen (10 sources) Start: 05-26-2021 semaglutide (O ZEMPIC) 1 mg/dose (4 mg/3 mL) pen Inject 1 mg subcutaneously. 05/26/2021 Active Start: 05-26-2021 semaglutide (O ZEMPIC) 1 mg/dose (4 mg/3 mL) pen Inject 1 mg subcutaneously. 0 05/26/2021 Active Comment on above: Inject 1 mg subcutan eously. simvastatin 20 mg oral tablet (20 sources) HMG-CoA Reductase Inhibitor Start: 08-02-2010 End: 01-03-2024 simvastatin 20 mg oral tablet Dose : 20 mg = 1 tab(s), Oral, qHS, # 30 tab(s), 5 Refill(s), Pharmacy: [facility] [id number], 160, cm, 09/11/23 9:04:00 EDT, Height, kg, 09/11/23 9:04:00 EDT, Dosing Weight Start Date: 09/11/23 Status: Ordered Medication Dispense Status: Completed Quantity: 30.0 Unit: tab(s) Total Allowed Fills: 6 Fills Dispensed: 0 Comment on above: Take 20 mg by mouth daily at bedtime. sucroferric oxyhydroxide 500 mg chewable tablet (20 sources) Start: 06-12-2023 velphoro velphoro, 0 Refill(s) Start Date: 06/12/23 Status: Ordered Start: 02-07-2023 VELPHORO 500 m g chew CRUSH OR CHEW AND SWALLOW 1 TABLET 3 TIMES A DAY WITH MEALS 02/07/2023 Active Start: 05-23-2022 Velphoro 500 m g oral tablet, chewable 0 Refill(s) Start Date: 12/19/23 Status: Ordered Medication Dispense Status: Completed Total Allowed Fills: 1 Fills Dispensed: 0 Comment on above: CRUSH OR CHEW AND SW ALLOW 1 TABLET 3 TIMES A DAY WITH MEALS {20 (nirmatrelvir 150 MG Oral Tablet) / 10 (ritonavir 100 MG Oral Tablet) } Pack [Paxlovid 5-Day] (1 source) Start: 02-05-2024 End: 02-10-2024 Paxlovid 300 mg-100 mg Dose Pack oral tablet Dose = 1 packet(s), Oral, BID, Take two 150mg nirmatrelvir tabs and one 100mg ritonavir tab on day one. On days 2-5 take one 150mg nirmatrelvir tabs and one 100mg ritonavir once a day. Dialysis dosing protocol., X 5 day(s), # 5 EA, 0 Refill(s) Start Date: 02/05/24 Stop Date: 02/10/24 Status: Ordered Completed/Discontinued Medications Medication Drug Class(es) Dates Sig (Normalized) Sig (Original) acetaminophen 325 mg / HYDROcodone bitartrate 5 mg oral tablet (10 sources) Opioid Agonist Start: 08-06-2020 End: 08-08-2020 Hydrocodone-Acetamino phen 1 TABLET tablet Discontinued 1 {tbl} PO EVERY 6 HOURS NEEDED as needed for Pain 5 2 0 August 06, 2020 August 07, 2020 12:00am August 08, 2020 12:03am Postoperative pain Other acute postprocedural pain Start: 08-06-2020 End: 08-08-2020 take 1 tablet by mouth every six hours as needed Hydrocodone-Acetaminophen Discontinued 1 TABLET PO EVERY 6 HOURS NEEDED 5 2 August 06, 2020 August 08, 2020 12:03am allopurinol 300 mg oral tablet (20 sources) Xanthine Oxidase Inhibitor Start: 03-03-2021 End: 09-01-2021 take 1 tablet by mouth once daily Allopurinol 300 mg tablet Discontinued 300 mg PO DAILY March 03, 2021 11:31am September 01, 2021 10:34am gout Start: 02-07-2020 End: 03-03-2021 Allopurinol 300 MG tablet Discontinued 100 mg PO DAILY 30 February 07, 2020 11:05am March 03, 2021 11:32am gout Start: 02-07-2020 End: 03-03-2021 take 100 mg by mouth once daily Allopurinol Discontinu ed 100 MG PO DAILY February 07, 2020 11:05am March 03, 2021 11:32am Start: 06-26-2019 End: 02-07-2020 take 1 tablet by mouth once daily Allopurinol 300 MG tablet Discontinued 300 mg PO DAILY June 26, 2019 1:00am February 07, 2020 11:05am gout Start: 04-22-2014 End: 05-22-2017 take 1 tablet by mouth once daily at mealtime Allopurinol 100 MG tablet Discontinued 100 mg PO DAILY WITH MEALS November 12, 2014 12:00am May 22, 2017 11:48am Start: 04-22-2014 take 1 tablet by amy th once daily ALLOPURINOL 300 MG TABS One tablet by mouth daily ALLOPURINOL [id number] Angel Lucas MD amLODIPine 2.5 mg oral tablet (20 sources) Dihydropyridine Calcium Channel Carlin Start: 04-13-2011 End: 06-29-2019 take 1 tablet by mouth once daily Amlodipine 2.5 mg tablet Discontinued 2.5 mg PO DAILY 90 4 March 14, 2019 8:59am June 26, 2019 7:04pm amoxicillin 875 mg / clavulanate 125 mg oral tablet (20 sources) Penicillin-class Antibacterial Start: 01-19-2020 End: 02-07-2020 Amoxicillin-Pot Clavulanate 875 MG tablet Discontinued 1 {tbl} PO TWICE A DAY February 01, 2020 4:03pm February 07, 2020 11:03am Check with primary doctor colchicine 0.6 mg oral capsule (20 sources) Start: 05-22-2017 End: 04-19-2020 take 1 capsule by mouth once daily Colchicine 0.6 MG capsule Discontinued 0.6 mg PO DAILY May 22, 2017 11:49am April 19, 2020 11:05am gout Start: 04-20-2016 take 1 tablet by amy th once daily COLCRYS 0.6 MG TABS One tablet by mouth daily COLCHICINE [id number] Angel Lucas MD Start: 11-12-2014 End: 05-22-2017 take 1 capsule by mouth twice daily Colchicine 0.6 MG capsule Discontinued 0.6 mg PO TWICE A DAY November 12, 2014 12:00am May 22, 2017 11:49am take 1 tablet by amy th twice daily COLCRYS 0.6 MG TABS One tablet by mouth twice daily COLCHICINE [id number] Jacoby Thompson Myesha dapagliflozin 10 mg oral tablet (20 sources) Sodium-Glucose Cotransporter 2 Inhibitor Start: 03-16-2023 End: 02-27-2025 take 1 tablet by mouth once daily Dapagliflozin Propanediol (Farxiga) 10 mg tablet Discontinued 10 mg PO DAILY 03 04December 11, 2024 5:02pm December 31, 2024 3:54pm Comment on above: Take 1 tablet by amy th every afternoon. dextromethorphan hydrobromide 3 mg/ml oral solution (10 sources) Uncompetitive P-psyaeb-X-aspartat e Receptor Antagonist, Sigma-1 Agonist Start: 03-10-2014 End: 05-22-2017 take 15 mg by mouth every four hours as needed for cough Dextromethorphan Hbr 15 MG/5 ML syrup Discontinued 15 mg PO EVERY 4 HOURS NEEDED as needed for Cough March 10, 2014 1:00am May 22, 2017 11:49am [id number] 0.3 ml EPINEPHrine 1 mg/ml auto-injector (10 sources) alpha-Adrenergic Agonist, beta-Adrenergic Agonist, Catecholamine Start: 03-03-2021 End: 05-23-2022 Epinephrine (Epipen) 0.3 mg/0.3 mL auto-injector Discontinued 0.3 mg IM every 5 to 15 minutes as needed for Pain March 03, 2021 12:00am May 23, 2022 3:17pm do not exceed 3 doses per episode furosemide 80 mg oral tablet (20 sources) Loop Diuretic Start: 03-16-2023 End: 01-20-2024 take 1 tablet by mouth every twelve hours furosemide (LASIX) 80 mg tablet Take 1 tablet by mouth every 12 hours. 03/16/2023 Active Start: 02-07-2020 End: 01-03-2024 take 1 tablet by mouth twice daily Furosemide 80 mg tablet Discontinued 80 mg PO TWICE A DAY 60 May 11, 2023 5:34pm January 03, 2024 1:27pm Start: 10-19-2011 End: 02-07-2020 take 1 tablet by mouth twice daily Furosemide 40 mg tablet Discontinued 40 mg PO TWICE A DAY 180 March 14, 2019 11:45am December 29, 2019 12:35pm Comment on above: [facility] gabapentin 100 mg oral capsule (20 sources) Anti-epileptic Agent Start: End: 5 gabapentin 100 mg oral capsule Dose : 100 mg = 1 cap(s), Oral, BID, PRN Pain, breakthrough, # 30 cap(s), 1 Refill(s), Pharmacy: [facility]/pharmacy #[id number], Peripheral neuropathy, 160, cm, 06/17/24 9:00:00 EST, Height, 88.9, kg, 06/17/24 9:00:00 EST, Dosing Weight Start Date: 06/17/24 Stop Date: 08/16/24 Status: Ordered Medication Dispense Status: Completed Quantity: 30.0 Unit: cap(s) Total Allowed Fills: 2 Fills Dispensed: 0 Indications: Polyneuropathy, unspecified; Comment on above: Take 1 capsule by mo [facility] every afternoon. glimepiride 2 mg oral tablet (20 sources) Sulfonylurea Start: 9 End: 0 take 1 mg by mouth once daily in the morning Glimepiride 2 mg tablet Discontinued 1 mg PO EVERY MORNING January 22, 2019 12:00am November 27, 2019 3:08pm dm Start: 01-22-2019 End: 11-27-2019 take 1 mg by mouth once daily in the morning Glimepiride Discontinued 1 MG PO EVERY MORNING January 22, 2019 12:00am November 27, 2019 3:08pm Start: 05-24-2017 End: 01-22-2019 take 1 tablet by mouth twice daily Glimepiride 4 MG tablet Discontinued 4 mg PO TWICE A DAY May 24, 2017 10:54am January 22, 2019 1:01pm Start: 05-22-2017 End: 05-24-2017 take 2 tablets by mouth once daily Glimepiride 4 MG tablet Discontinued 8 mg PO DAILY May 22, 2017 11:47am May 24, 2017 10:57am Start: 05-22-2017 End: 05-24-2017 take 8 mg by mouth once daily Glimepiride Discontinued 8 MG PO DAILY May 22, 2017 11:47am May 24, 2017 10:57am Start: 10-19-2011 End: 05-22-2017 take 1 tablet by mouth once daily Glimepiride 4 MG tablet Discontinued 4 mg PO DAILY November 12, 2014 12:00am May 22, 2017 11:49am 12 hr guaiFENesin 1200 mg extended release oral tablet (10 sources) Start: 06-29-2019 End: 11-27-2019 take 1 tablet by mouth twice daily Guaifenesin 1,200 MG tablet Discontinued 1200 mg PO TWICE A DAY 10 0 June 29, 2019 1:00am November 27, 2019 3:08pm hydroCHLOROthiazide 25 mg oral tablet (20 sources) Thiazide Diuretic Start: 08-02-2010 End: 06-29-2019 take 1 tablet by mouth once daily Hydrochlorothiazide 25 mg tablet Discontinued 25 mg PO DAILY 90 4 March 13, 2019 5:17pm June 26, 2019 7:04pm insulin detemir 100 unt/ml injectable solution (20 sources) Insulin Analog Start: 06-19-2024 End: 09-02-2024 Insulin Detemir U-100 (Levemir U-100 Insulin) 100 unit/mL solution Discontinued 35 U SC TWICE A DAY June 19, 2024 10:41am September 02, 2024 10:13am Start: 05-27-2024 End: 06-19-2024 Insulin Detemir U-100 (Levem ir U-100 Insulin) 100 unit/mL solution Discontinued 50 U SC TWICE A DAY May 27, 2024 1:00am June 19, 2024 10:42am Start: 02-28-2024 End: 02-27-2025 inject 50 [IU] by subcutaneous injection twice daily insulin detemir (Levemir) 100 UNIT/ML injection Indications: Type 2 diabetes mellitus with hyperglycemia, with long-term current use of insulin (HCC) Inject 50 Units under the skin 2 times daily. 90 mL 3 02/28/2024 02/27/2025 Active Start: 01-04-2024 Levemir 100 un its/mL FlexPen 3 mL Pen See Instructions, 58units BID Subcutaneous, # 15 mL, 5 Refill(s), Pharmacy: [facility] [id number], 155, cm, 12/18/23 9:01:00 EDT, Height, kg, 12/18/23 9:01:00 EDT, Dosing Weight Start Date: 01/04/24 Status: Ordered Start: 06-12-2023 inject 0.25 mL by lucas bcutaneous injection once daily at bedtime Levemir 100 units/mL FlexPen 3 mL Pen See Instructions, 0.25 mL Subcutaneous qHS 58units BID, # 15 mL, 5 Refill(s), Pharmacy: [facility] [id number], 160, cm, 06/12/23 10:27:00 EST, Height, kg, 06/12/23 10:27:00 EST, Dosing Weight Start Date: 06/12/23 Status: Ordered Start: 03-28-2023 LEVEMIR FLEXPE N 100 unit/mL (3 mL) injection pen INJECT 58 units under skin twice daily 03/28/2023 Active Start: 03-03-2021 End: 05-23-2022 Insulin Detemir U-100 (Levem ir Flextouch U-100 Insuln) 100 unit/mL (3 mL) insulin pen Discontinued 10 U SC DAILY March 03, 2021 12:00am May 23, 2022 3:18pm End: 02-28-2024 inject 58 [IU] by subcutaneous injection in the morning insulin detemir (Levemir) 100 UNIT/ML injection Inject 58 Units under the skin in the morning and 58 Units in the evening. 02/28/2024 Discontinued (Reorder) Comment on above: INJECT 58 units unde r skin twice daily Insulin Detemir U-100 (Levemir Flexpen) 100 unit/mL (3 mL) insulin pen (16 sources) Start: 01-29-2024 End: 05-27-2024 Insulin Detemir U-100 (Levemir Flexpen) 100 unit/mL (3 mL) insulin pen Discontinued 58 U SC TWICE A DAY January 29, 2024 12:04pm May 27, 2024 10:22am Start: 10-12-2022 End: 01-29-2024 Insulin Detemir U-100 (Levem ir Flexpen) 100 unit/mL (3 mL) insulin pen Discontinued 60 U SC TWICE A DAY October 12, 2022 10:07am January 29, 2024 12:20pm Start: 10-12-2022 Insulin Detemi r U-100 (Levemir Flexpen) 100 unit/mL (3 mL) insulin pen Active 58 UNIT SC TWICE A DAY October 12, 2022 9:07am Start: 10-12-2022 Insulin Detemi r U-100 (Levemir Flexpen) 100 unit/mL (3 mL) insulin pen Active 58 UNIT SC TWICE A DAY October 12, 2022 10:07am Start: 05-23-2022 End: 10-12-2022 Insulin Detemir U-100 (Levem ir Flexpen) 100 unit/mL (3 mL) insulin pen Discontinued 48 U SC TWICE A DAY May 23, 2022 1:00am October 12, 2022 10:09am Start: 05-23-2022 End: 10-12-2022 Insulin Detemir U-100 (Levem ir Flexpen) 100 unit/mL (3 mL) insulin pen Discontinued 48 UNIT SC TWICE A DAY May 23, 2022 12:00am October 12, 2022 9:09am Start: 05-23-2022 End: 10-12-2022 Insulin Detemir U-100 (Levem ir Flexpen) 100 unit/mL (3 mL) insulin pen Discontinued 48 UNIT SC TWICE A DAY May 23, 2022 1:00am October 12, 2022 10:09am Start: 05-23-2022 Insulin Detemi r U-100 (Levemir Flexpen) 100 unit/mL (3 mL) insulin pen Active 48 UNIT SC TWICE A DAY May 23, 2022 1:00am Start: 05-23-2022 Insulin Detemi r U-100 (Levemir Flexpen) 100 unit/mL (3 mL) insulin pen Active 48 UNIT SC TWICE A DAY May 23, 2022 12:00am ipratropium bromide 0.021 mg/actuat metered dose nasal spray (10 sources) Anticholinergic Start: 03-03-2021 End: 09-01-2021 Ipratropium [place] 21 mcg (0.03 %) spray,non-aerosol Discontinued 2 NMA INTRANASAL AT BEDTIME as needed for allergy symptoms March 03, 2021 12:00am September 01, 2021 10:36am administer into each nostril Start: 03-03-2021 End: 09-01-2021 take 1 spray(s) nasal route at bedtime Ipratropium [place] Discontinued 2 SPRAY INTRANASAL AT BEDTIME March 03, 2021 12:00am September 01, 2021 10:36am administer into each nostril 24 hr isosorbide mononitrate 30 mg extended release oral tablet (20 sources) Start: 04-19-2020 End: 03-03-2021 take 1 tablet by mouth once daily in the morning Isosorbide Mononitrate 30 mg tablet extended release 24 hr Discontinued 0 .ROUTE .COMPLEX 90 May 31, 2020 1:09pm March 03, 2021 11:32am TAKE 1 TABLET BY MOUTH EVERY DAY IN THE MORNING Start: 11-13-2014 take 1 tablet by amy th once daily IMDUR 30 MG [id number] One tablet by mouth daily ISOSORBIDE MONONITRATE [id number] Angel Lucas MD Start: 11-13-2014 End: 02-07-2020 take 1 tablet by mouth once daily in the morning, then take 1 tablet by mouth every twenty-four hours Isosorbide Mononitrate 30 mg tablet extended release 24 hr Discontinued 30 mg PO EVERY MORNING 90 3 March 14, 2019 6:01pm June 26, 2019 7:04pm Start: 11-13-2014 take 1 tablet by amy th once daily IMDUR 30 MG [id number] One tablet by mouth daily ISOSORBIDE MONONITRATE [id number] Angel Lucas MD Start: 11-13-2014 take 1 tablet by amy th once daily IMDUR 30 MG [id number] One tablet by mouth daily ISOSORBIDE MONONITRATE Angel Lucas MD levoFLOXacin 500 mg oral tablet (10 sources) Quinolone Antimicrobial Start: 03-10-2014 End: 03-12-2014 take 1 tablet by mouth once daily Levofloxacin 500 MG tablet Discontinued 500 mg PO DAILY March 10, 2014 1:00am March 12, 2014 10:19am lisinopril 20 mg oral tablet (20 sources) Angiotensin Converting Enzyme Inhibitor Start: 04-19-2020 End: 03-03-2021 take 1 tablet by mouth twice daily Lisinopril 20 mg tablet Discontinued 20 mg PO TWICE A DAY 60 April 19, 2020 11:45am March 03, 2021 11:32am Start: 08-02-2010 End: 02-07-2020 take 1 tablet by mouth twice daily Lisinopril 20 mg tablet Discontinued 20 mg PO TWICE A DAY 180 March 14, 2019 11:45am June 26, 2019 7:04pm magnesium oxide 400 mg oral tablet (20 sources) Start: 06-03-2019 End: 02-07-2020 take 1 tablet by mouth twice daily Magnesium Oxide 400 MG tablet Discontinued 400 mg PO TWICE A DAY June 03, 2019 1:00am February 07, 2020 11:04am Check with primary doctor Start: 05-02-2018 End: 05-27-2019 take 1 tablet by mouth twice daily Magnesium Oxide 420 mg tablet Discontinued 420 mg PO TWICE A DAY May 02, 2018 1:00am May 27, 2019 4:23pm Start: 05-24-2017 End: 05-02-2018 take 1 capsule by mouth once daily Magnesium Oxide 400 mg capsule Discontinued 400 mg PO daily 90 February 27, 2018 7:11am May 02, 2018 12:43pm meloxicam 15 mg oral tablet (18 sources) Nonsteroidal Anti-inflammatory Drug Start: 04-20-2016 End: 05-24-2017 take 1 tablet by mouth once daily Meloxicam 15 mg tablet Discontinued 15 mg PO daily May 22, 2017 1:00am May 24, 2017 10:57am metFORMIN hydrochloride 1000 mg oral tablet (20 sources) Biguanide Start: 11-27-2019 End: 02-07-2020 take 1 tablet by mouth twice daily Metformin 1,000 MG tablet Discontinued 1000 mg PO TWICE A DAY November 27, 2019 12:00am February 07, 2020 11:04am Check with primary doctor Start: 05-22-2017 End: 06-29-2019 take 1000 mg by mouth twice daily at mealtime Metformin Discontinued 1000 MG PO TWICE DAILY WITH MEALS May 22, 2017 11:46am June 29, 2019 12:58pm Start: 08-02-2010 End: 05-22-2017 take 1 tablet by mouth twice daily at mealtime Metformin 500 MG tablet Discontinued 500 mg PO TWICE DAILY WITH MEALS March 10, 2014 1:00am May 22, 2017 11:49am Start: 08-02-2010 End: 06-29-2019 take 2 tablets by mouth twice daily at mealtime Metformin 500 MG tablet Discontinued 1000 mg PO TWICE DAILY WITH MEALS May 22, 2017 11:46am June 29, 2019 12:58pm dm nabumetone 500 mg oral tablet (10 sources) Nonsteroidal Anti-inflammatory Drug Start: 02-01-2020 End: 02-07-2020 take 1 tablet by mouth once daily Nabumetone 500 MG tablet Discontinued 500 mg PO DAILY February 01, 2020 12:00am February 07, 2020 11:04am Check with primary doctor nateglinide 120 mg oral tablet (10 sources) Glinide Start: 03-03-2021 End: 09-01-2021 take 1 tablet by mouth three times daily before mealtime Nateglinide 120 mg tablet Discontinued 120 mg PO THREE TIMES A DAY March 03, 2021 12:00am September 01, 2021 10:35am give before meal(s) 24 hr niacin 1000 mg extended release oral tablet (20 sources) Nicotinic Acid Start: 08-02-2010 End: 10-01-2013 take 1 tablet by mouth once daily NIASPAN 1000 MG CR-TABS One tablet by mouth daily NIACIN (ANTIHYPERLIPIDEM IC) [id number] Angel Lucas MD Start: 08-02-2010 End: 10-01-2013 take 1 tablet by mouth once daily NIASPAN 1000 MG CR-TABS One tablet by mouth daily NIACIN (ANTIHYPERLIPIDEMIC) [id number] Angel Lucas MD Tiotropium-Olodaterol (10 sources) Anticholinergic, beta2-Adrenergic Agonist Start: 06-27-2019 End: 11-27-2019 Tiotropium-Olodaterol 4 GM mist Discontinued 2 NMA IH DAILY June 27, 2019 1:00am November 27, 2019 3:11pm SOB home med list states 2.5-2.5 mcg/ACT aerosol soln daily 2 puffs Start: 06-27-2019 End: 11-27-2019 Tiotropium-Olodaterol Discon tinued 2 PUFF IH DAILY June 27, 2019 1:00am November 27, 2019 3:11pm home med list states 2.5-2.5 mcg/ACT aerosol soln daily 2 puffs oseltamivir 30 mg oral capsule (10 sources) Neuraminidase Inhibitor Start: 06-29-2019 End: 11-27-2019 take 1 capsule by mouth twice daily Oseltamivir 30 MG capsule Discontinued 30 mg PO TWICE A DAY 5 0 June 29, 2019 1:00am November 27, 2019 3:10pm perflutren lipid microspheres 1.3 mL in NaCl (PF) 0.9% 10 mL injection (DEFINITY) (2 sources) Start: 04-22-2024 End: 04-22-2024 perflutren lipid microspheres 1.3 mL in NaCl (PF) 0.9% 10 mL injection (DEFINITY) Start: 04-22-2024 End: 04-22-2024 take 1 dose intravenously once as needed INTRAVENOUS, DIRECTED NEEDED, 1 dose, Starting on Sun04/22/24 at 1159, Until Sun04/22/24 at 1145, Per Protocol - for use during ECHO procedure only, If no IV access, insert saline lock prior to administering contrast. Discontinue saline lock post exam. If patient has central line or IVAD, may access for administration according to line specific nursing protocol. Once exam is complete, flush line and de-access per line specific nursing protocol.Dilute 1.3 ml of Definity with 8.7 ml of preservative-free saline., Cardiac Procedure Med Orders PEG [id number]-NASU LF (8 sources) Osmotic Laxative Start: 03-19-2014 End: 03-20-2014 GOLYTELY 227.1 GM SOLR use a s per instructions PEG [id number] [id number] Joana Hernandez Start: 03-19-2014 End: 03-20-2014 GOLYTELY 227.1 GM SOLR use a s per instructions PEG [id number]-NASULF [id number] Joana Hernandez Start: 03-19-2014 End: 03-20-2014 GOLYTELY 227.1 GM SOLR use a s per instructions PEG [id number]-NASULF [id number] Joana Hernandez microencapsulated potassium chloride 20 meq extended release oral tablet (20 sources) Start: 02-26-2018 End: 11-27-2019 take 1 tablet by mouth twice daily Potassium Chloride 20 mEq tablet,ER particles/crystals Discontinued 20 meq PO TWICE A DAY 180 3 March 13, 2019 5:17pm June 26, 2019 7:04pm Start: 10-19-2011 take 1 tablet by amy th twice daily KLOR-CON M20 20 MEQ CR-TABS One tablet by mouth twice daily POTASSIUM CHLORIDE EMANUEL CR [id number] Angel Lucas MD Start: 10-19-2011 End: 02-26-2018 take 1 tablet by mouth twice daily Potassium Chloride 20 MEQ tablet Discontinued 20 meq PO TWICE A DAY March 10, 2014 1:00am February 26, 2018 4:26pm Start: 10-19-2011 take 1 tablet by amy th twice daily KLOR-CON M20 20 MEQ CR-TABS One tablet by mouth twice daily POTASSIUM CHLORIDE EMANUEL CR [id number] Angel Lucas MD Start: 10-19-2011 take 1 tablet by amy th twice daily KLOR-CON M20 20 MEQ CR-TABS One tablet by mouth twice daily POTASSIUM CHLORIDE EMANUEL CR [id number] Angel Lucas MD Pulse Oximeter (10 sources) Start: 12-29-2019 End: 04-19-2020 Pulse Oximeter Discontinued December 29, 2019 12:41pm April 19, 2020 11:05am As directed Start: 12-29-2019 End: 04-19-2020 Pulse Oximeter Discontinued 1 December 29, 2019 12:00am April 19, 2020 11:05am Pulmonary hypertension, unspecified Monitor Saturations As directed Start: 12-29-2019 End: 04-19-2020 Pulse Oximeter Discontinued December 28, 2019 11:00pm April 19, 2020 10:05am As directed Start: 12-29-2019 End: 04-19-2020 Pulse Oximeter Discontinued December 29, 2019 12:00am April 19, 2020 11:05am As directed 0.25 mg, 0.5 mg dose 1.5 ml semaglutide 1.34 mg/ml pen injector (18 sources) Start: 05-23-2022 End: 10-12-2022 Semaglutide (Ozempic) 0.25 m g or 0.5 mg(2 mg/1.5 mL) pen injector Discontinued 0.5 mg SC EVERY WEEK May 23, 2022 1:00am October 12, 2022 10:08am Start: 12-07-2021 semaglutide (O ZEMPIC) 0.25 mg or 0.5 mg(2 mg/1.5 mL) pen Inject 0.5 mg subcutaneously. 12/07/2021 Active Comment on above: Inject 0.5 mg subcut aneously. Problems Active Problems Problem Classification Problem Date Documented Date Episodic/Chronic Acute and unspecified renal failure (4 sources) Anemia secondary to renal failure 06-13-2023 Chronic Acute and unspecified renal failure (10 sources) Injury of kidney; Translations: [Acute kidney failure, unspecified] 02-13-2020 Episodic Cardiac dysrhythmias (20 sources) Tachycardia, unspecified; Translations: [Tachycardia] Onset: 5 11-30-2014 Episodic Chronic kidney disease (20 sources) Chronic renal failure; Translations: [Chronic kidney disease, stage 5] Onset: Chronic Complication of device; implant or graft (20 sources) Atherosclerosis of coronary artery bypass graft(s) without angina pectoris; Translations: [Arteriosclerosis of coronary artery bypass graft] Onset: 1 04-19-2016 Chronic Comment on above: CABG x6 ; Internal M ammary to Anterior Descending, SVG to diag branch of the Anterior descending,SVG to the lateral & posteriorlateral CX, SVG to Posterior Descending and continuation branches of the RCA 02/27/03 Complication of device; implant or graft (2 sources) Disorder of surgical arteriovenous fistula; Translations: [Unspecified complication of cardiac and vascular prosthetic device, implant and graft, initial encounter] 01-01-2024 Episodic Conduction disorders (20 sources) Cardiac defibrillator in situ; Translations: [Presence of automatic (implantable) cardiac defibrillator] Onset: 5 Chronic Congestive heart failure; nonhypertensive (20 sources) Congestive heart failure; Translations: [Congestive heart failure due to cardiomyopathy] Onset: 2 10-19-2011 Chronic Coronary atherosclerosis and other heart disease (20 sources) Angina decubitus; Translations: [Myocardial ischemia] Onset: 1 08-02-2010 Chronic Comment on above: Status post CABG in 2003: Following the Dr. 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; Translations: [Hyperglycemia due to type 2 diabetes mellitus] Onset: 4 06-12-2023 Chronic Diabetes mellitus without complication (20 sources) Type 2 diabetes mellitus; Translations: [Type 2 diabetes mellitus without complications] Onset: 2 05-28-2019 Chronic Disorders of lipid metabolism (20 sources) Hyperlipidemia; Translations: [Hypertriglyceridemia] Onset: 1 08-02-2010 Chronic Essential hypertension (20 sources) Hypertensive disorder; Translations: [Essential hypertension] Onset: 1 08-02-2010 Chronic Genitourinary symptoms and ill-defined conditions (11 sources) Retention of urine; Translations: [Retention of urine, unspecified] Onset: 5 02-13-2020 Episodic Hypertension with complications and secondary hypertension (2 sources) Hypertension secondary to endocrine disorders; Translations: [Hypertension secondary to endocrine disorders] Onset: 4 Chronic Influenza (10 sources) Influenza due to Influenza A virus; Translations: [Influenza due to other identified influenza virus with other respiratory manifestations] 06-26-2019 Episodic Nausea and vomiting (1 source) Vomiting; Translations: [Vomiting, unspecified] Onset: 4 Episodic Nutritional deficiencies (3 sources) Vitamin D deficiency; Translations: [Vitamin D deficiency, unspecified] Onset: 1 07-12-2024 Chronic Osteoarthritis (8 sources) Osteoarthritis of knee; Translations: [Osteoarthritis of knee, unspecified] Onset: 6 01-31-2016 Chronic Other aftercare (8 sources) 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; Translations: [Long-term (current) use of other medications] Onset: 1 08-02-2010 Episodic Other aftercare (10 sources) H/O: high risk medication; Translations: [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] 06-26-2019 Episodic Other aftercare (5 sources) Drug therapy finding; Translations: [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] 06-27-2022 Episodic Other aftercare (2 sources) 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; Translations: [custodial (current) use of insulin (HCC)] Onset: 4 Episodic Other aftercare (2 sources) Long-term current use of amiodarone; Translations: [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] 11-01-2023 Episodic Other circulatory disease (5 sources) Arteriovenous fistula 06-12-2023 Chronic Other diseases of kidney and ureters (1 source) Hyperparathyroidism due to renal insufficiency; Translations: [Secondary hyperparathyroidism of renal origin] Onset: 1 07-12-2024 Chronic Other diseases of veins and lymphatics (10 sources) Lymphedema; Translations: [Lymphedema, not elsewhere classified] 02-01-2020 Chronic Other endocrine disorders (1 source) Hypoglycemia; Translations: [Hypoglycemia, unspecified] Onset: 4 Chronic Other infections; including parasitic (10 sources) Bancroftian elephantiasis; 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] 11-02-2020 Episodic Comment on above: Much improved on jacqueline lysis Other lower respiratory disease (10 sources) Hypoxemia; Translations: [Hypoxemia] 06-26-2019 Episodic Other nutritional; endocrine; and metabolic disorders (16 sources) Body mass index (BMI) 45.0-49.9, adult; Translations: [Body mass index (BMI) 45.0-49.9, adult] Onset: 3 Resolved: 6 03-27-2013 Chronic Other nutritional; endocrine; and metabolic disorders (10 sources) Body mass index 40+ - severely obese; Translations: [Morbid (severe) obesity due to excess calories] 11-02-2020 Chronic Other nutritional; endocrine; and metabolic disorders (16 sources) Body mass index 30+ - obesity; Translations: [Obesity, unspecified] 11-02-2020 Chronic Other nutritional; endocrine; and metabolic disorders (6 sources) Obesity, unspecified; Translations: [Obesity, unspecified] Chronic Other nutritional; endocrine; and metabolic disorders (5 sources) Morbid obesity 06-12-2023 Chronic Other nutritional; endocrine; and metabolic disorders (8 sources) Obese class II; Translations: [Obesity, unspecified] Onset: 3 04-27-2023 Chronic Other nutritional; endocrine; and metabolic disorders (1 source) Severe obesity; Translations: [Class 2 severe obesity with serious comorbidity and body mass index (BMI) of 36.0 to 36.9 in adult, unspecified obesity type (HCC)] 02-28-2024 Chronic Other nutritional; endocrine; and metabolic disorders (2 sources) Body mass index (BMI) 36.0-36.9, adult; Translations: [Body mass index (BMI) 36.0-36.9, adult] Onset: 4 Chronic Other nutritional; endocrine; and metabolic disorders (2 sources) Morbid (severe) obesity due to excess calories; Translations: [Morbid (severe) obesity due to excess calories (HCC)] Onset: 4 Chronic Peripheral and visceral atherosclerosis (17 sources) Peripheral vascular disease; Translations: [Peripheral vascular disease, unspecified] 02-01-2020 Chronic Pulmonary heart disease (20 sources) Pulmonary hypertension; Translations: [Pulmonary hypertension, unspecified] Onset: 1 08-02-2010 Chronic Comment on above: Probable type II Rehabilitation care; fitting of prostheses; and adjustment of devices (1 source) Encounter for fitting and adjustment of other specified devices; Translations: [Encounter for fitting and adjustment of other specified devices] Onset: 5 Chronic Residual codes; unclassified (3 sources) Sleep apnea; Translations: [Sleep apnea, unspecified] 05-27-2024 Chronic Comment on above: Severe obstructive s leep apnea with an AHI of 52.7 Residual codes; unclassified (2 sources) Obstructive sleep apnea syndrome 06-17-2024 Chronic Residual codes; unclassified (1 source) Obstructive sleep apnea (adult) (pediatric); Translations: [Obstructive sleep apnea (adult) (pediatric)] Onset: 5 Chronic Residual codes; unclassified (1 source) Sleep apnea, unspecified; Translations: [Sleep apnea, unspecified] Onset: 5 Chronic Residual codes; unclassified (10 sources) Bilateral lower limb edema; Translations: [Localized edema] 08-06-2020 Episodic Screening and history of mental health and substance abuse codes (4 sources) Tobacco use and exposure - finding 11-15-2023 Chronic Superficial injury; contusion (10 sources) Multiple superficial injuries of lower leg; Translations: [Abrasion, left lower leg, initial encounter] 06-26-2019 Episodic Unclassified (20 sources) Encounter for screening for malignant neoplasm of colon; Translations: [Cardiovascular stress test abnormal] 03-19-2014 Episodic Unclassified (5 sources) Implantation of automatic cardiac defibrillator ; Translations: [Presence of automatic (implantable) cardiac defibrillator] Onset: 1 08-02-2010 Unclassified (4 sources) Long-term drug therapy; Translations: [Other intermediate (current) drug therapy] Onset: 1 08-02-2010 Unclassified (20 sources) Patient encounter status 06-12-2023 Unclassified (1 source) Obesity, class 2; Translations: [Obesity, class 2] Onset: 4 Unclassified (2 sources) Peripheral arterial disease 06-18-2024 Varicose veins of lower extremity (20 sources) Venous stasis ulcer of leg; Translations: [Varicose veins of left lower extremity with ulcer of unspecified site] 08-06-2020 Episodic Past or Other Problems Problem Classification Problem Date Documented Date Episodic/Chronic Congestive heart failure; nonhypertensive (10 sources) Congestive heart failure; nonhypertensive 05-28-2019 Comment on above: Ejection fraction 55 % in 2012 Joint disorders and dislocations; trauma-related (8 sources) Other tear of medial meniscus, current injury, right knee, initial encounter; Translations: [Other tear of medial meniscus, current injury, right knee, initial encounter] Onset: 01-28-2016 01-31-2016 Episodic Other circulatory disease (8 sources) Abnormal result of cardiovascular function study, unspecified; Translations: [Abnormal result of cardiovascular function study, unspecified] Onset: 11-02-2014 11-02-2014 Episodic Other non-traumatic joint disorders (13 sources) Pain in right knee; Translations: [Effusion, right knee] Onset: 01-28-2016 02-09-2016 Episodic Other non-traumatic joint disorders (3 sources) Effusion, right knee; Translations: [Effusion, right knee] Onset: 01-28-2016 02-09-2016 Episodic Residual codes; unclassified (3 sources) FH: Hypertension; Translations: [Family history of ischemic heart disease and other diseases of the circulatory system] 10-21-2014 Episodic Residual codes; unclassified (3 sources) Other specified health status; Translations: [Other specified health status] Onset: 10-21-2014 10-21-2014 Episodic Unclassified (18 sources) Edema; Translations: [FH: Hypertension] Onset: 10-19-2011 10-19-2011 Episodic Unclassified (10 sources) STATUS POST AICD 05-28-2019 Comment on above: In 2004 Unclassified (1 source) Obesity, class 2; Translations: [Obesity, class 2] Onset: 02-28-2024 Viral infection (1 source) Disease caused by 2019-nCoV; Translations: [COVID-19] Onset: 02-05-2024 Results Test Name Value Interpretation Reference Range Facility .GFRon 01-13-2025 Estimated Glomerular Filtration Rate 10 ml/min/1.73sqm Normal [facility] Comment on above: Result Comment: Stages of Chronic Kidney Disease (CKD) Stage Description eGFR(ml/min/1.73 sq.m.) CKD 1 Normal kidney function or >=90 normal kindney function with possible kidney damage (ex. Proteinuria) CKD 2 Kidney damage with mild loss 60-89 of kidney function CKD 3a Mild to moderate loss of kidney 45-59 function CKD 3b Moderate to severe loss of 30-44 of kindey function CKD 4 Severe loss of kidney function 15-29 CKD 5 Kidney failure <15 Note: (go live 2024) the eGFR calculation was updated to the 2020 CKD-EPI creatinine equation without a race factor to calculate the eGFR results. Performed By: #### M ORPH, MDW, CBC, ANEU, ADIFF, CMP, GFR, LIP #### [address] [address] CMPon 01-13-2025 Albumin Level 4.0 G/dL Normal 3.4-4.8 [facility] Comment on above: Performed By: #### M REY SULLIVAN, CBC, ANEU, ADIFF, CMP, GFR, LIP #### [address] [address] Albumin/Globulin [Mass ratio] 0.9 {ratio} Low 1.1-2.5 [facility] Comment on above: Performed By: #### M REY SULLIVAN, CBC, ANEU, ADIFF, CMP, GFR, LIP #### [address] [address] ALP [Catalytic activity/Vol] 56 U/L Normal 40-135 [facility] Comment on above: Performed By: #### M REY SULLIVAN, CBC, ANEU, ADIFF, CMP, GFR, LIP #### [place] [id number] ALT [Catalytic activity/Vol] 20 U/L Normal 16-63 [facility] Comment on above: Performed By: #### M REY SULLIVAN, CBC, ANEU, ADIFF, CMP, GFR, LIP #### [place] [id number] AST [Catalytic activity/Vol] 24 U/L Normal 10-40 [facility] Comment on above: Performed By: #### M REY SULLIVAN, CBC, ANEU, ADIFF, CMP, GFR, LIP #### [address] [address] Bili Total 0.7 mg/dL Normal 0.2-1.0 [facility] Comment on above: Result Comment: Use of this assay is not recommended for patients undergoing treatment with eltrombopag due to the potential for falsely elevated results. Performed By: #### M REY SULLIVAN, CBC, ANEU, ADIFF, CMP, GFR, LIP #### [address] [address] BUN/Creatinine Ratio 8 ratio Normal 7-27 [facility] Comment on above: Performed By: #### M REY SULLIVAN, CBC, ANEU, ADIFF, CMP, GFR, LIP #### [address] [address] Calcium [Mass/Vol] 9.2 mg/dL Normal 8.4-10.2 [facility] Comment on above: Performed By: #### M REY SULLIVAN, CBC, ANEU, ADIFF, CMP, GFR, LIP #### [place] [address] Chloride [Moles/Vol] 98 mmol/L Normal 98-107 [facility] Comment on above: Performed By: #### M REY SULLIVAN, CBC, ANEU, ADIFF, CMP, GFR, LIP #### [place] [address] CO2 [Moles/Vol] 36 mmol/L High 23-31 [facility] Comment on above: Performed By: #### M REY SULLIVAN, CBC, ANEU, ADIFF, CMP, GFR, LIP #### [address] [address] Creatinine [Mass/Vol] 5.78 mg/dL High 0.67-1.17 [facility] Comment on above: Performed By: #### M REY SULLIVAN, CBC, ANEU, ADIFF, CMP, GFR, LIP #### [place] [address] Electrolyte Balance 6.0 mEq/L Normal 4.0-15.[address] [facility] Comment on above: Performed By: #### M REY SULLIVAN, CBC, ANEU, ADIFF, CMP, GFR, LIP #### [place] [address] Globulin 4.3 G/dL Normal 2.7-4.4 [facility] Comment on above: Performed By: #### M REY SULLIVAN, CBC, ANEU, ADIFF, CMP, GFR, LIP #### [place] [address] Glucose [Mass/Vol] 123 mg/dL High 80-115 [facility] Comment on above: Performed By: #### M REY SULLIVAN, CBC, ANEU, ADIFF, CMP, GFR, LIP #### [address] [address] Potassium [Moles/Vol] 4.2 mmol/L Normal 3.5-5.1 [facility] Comment on above: Performed By: #### M REY SULLIVAN, CBC, ANEU, ADIFF, CMP, GFR, LIP #### [address] [address] Sodium [Moles/Vol] 140 mmol/L Normal 136-145 [facility] Comment on above: Performed By: #### M REY SULLIVAN, CBC, ANEU, ADIFF, CMP, GFR, LIP #### [address] [address] Total Protein 8.3 G/dL High 6.4-8.2 [facility] Comment on above: Performed By: #### M REY SULLIVAN, CBC, ANEU, ADIFF, CMP, GFR, LIP #### [address] [address] Urea nitrogen [Mass/Vol] 44 mg/dL High 7-18 [facility] Comment on above: Performed By: #### M REY SULLIVAN, CBC, ANEU, ADIFF, CMP, GFR, LIP #### [address] [address] LABORATORYOrdered By: SYSTEM SYSTEM on 01-13-2025 Albumin BCP dye [Mass/Vol] 4.0 G/dL Normal 3.4 - 4.8 G/dL AO ADM SS Albumin/Globulin [Mass ratio] 0.9 {ratio} Low 1.1 - 2.5 ratio AO ADM SS ALP [Catalytic activity/Vol] 56 U/L Normal 40 - 135 U/L AO ADM SS ALT With P-5'-P [Catalytic activity/Vol] 20 U/L Normal 16 - 63 U/L AO ADM SS AST With P-5'-P [Catalytic activity/Vol] 24 U/L Normal 10 - 40 U/L AO ADM SS Bilirubin [Mass/Vol] 0.7 mg/dL Normal 0.2 - 1 .0 mg/dL AO ADM SS Comment on above: Interpretive Data: U se of this assay is not recommended for patients undergoing treatment with eltrombopag due to the potential for falsely elevated results. Calcium [Mass/Vol] 9.2 mg/dL Normal 8.4 - 10. 2 mg/dL AO ADM SS Chloride [Moles/Vol] 98 mmol/L Normal 98 - 10 7 mmol/L AO ADM SS CO2 [Moles/Vol] 36 mmol/L High 23 - 31 mmol/L AO ADM SS Creatinine [Mass/Vol] 5.78 mg/dL High 0.67 - 1.17 mg/dL AO ADM SS Electrolyte Balance 6.0 mEq/L Normal 4.0 - 15 .0 mEq/L AO ADM SS Estimated Glomerular Filtration Rate 10 ml/min/1.73sqm Invalid Interpretation Code AO Chemistry S Comment on above: Interpretive Data: Stages of Chronic Kidney Disease (CKD) Stage Description eGFR(ml/min/1.73 sq.m.) CKD 1 Normal kidney function or >=90 normal kindney function with possible kidney damage (ex. Proteinuria) CKD 2 Kidney damage with mild loss 60-89 of kidney function CKD 3a Mild to moderate loss of kidney 45-59 function CKD 3b Moderate to severe loss of 30-44 of kindey function CKD 4 Severe loss of kidney function 15-29 CKD 5 Kidney failure <15 Note: (go live 2024) the eGFR calculation was updated to the 2020 CKD-EPI creatinine equation without a race factor to calculate the eGFR results. Globulin 4.3 G/dL Normal 2.7 - 4.4 G/dL AO ADM SS Glucose [Mass/Vol] 123 mg/dL High 80 - 115 mg/dL AO ADM SS Potassium [Moles/Vol] 4.2 mmol/L Normal 3.5 - 5.1 mmol/L AO ADM SS Protein [Mass/Vol] 8.3 G/dL High 6.4 - 8.2 G/dL AO ADM SS Sodium [Moles/Vol] 140 mmol/L Normal 136 - 145 mmol/L AO ADM SS Urea nitrogen [Mass/Vol] 44 mg/dL High 7 - 18 mg/dL AO ADM SS Urea nitrogen/Creatinine [Mass ratio] 8 ratio Normal 7 - 27 ratio AO ADM SS LABORATORYOrdered By: Camron Taylor on 01-13-2025 Cholesterol [Mass/Vol] 175 mg/dL Normal 0 - 200 mg/dL AO ADM SS Comment on above: Interpretive Data: C holesterol Reference Interval: Less than 200 Desirable 200-239 Borderline high risk 240 and above High risk Cholesterol in HDL [Mass/Vol] 42 mg/dL Normal 40 - 60 mg/dL AO ADM SS Cholesterol in LDL [Mass/Vol] 101 mg/dL Normal 0 - 130 mg/dL AO ADM SS Triglyceride [Mass/Vol] 159 mg/dL High 0 - 150 mg/dL AO ADM SS Comment on above: Interpretive Data: T riglyceride Reference Interval: Less than 150 Normal 150-199 Borderline high risk 200-499 High risk 500 or higher Very high risk LIPIDon 01-13-2025 Cholesterol [Mass/Vol] 175 mg/dL Normal 0-200 [facility] Comment on above: Result Comment: Chol esterol Reference Interval: Less than 200 Desirable 200-239 Borderline high risk 240 and above High risk Performed By: #### M REY SULLIVAN, CBC, ANEU, ADIFF, CMP, GFR, LIP #### [address] [address] Cholesterol in HDL [Mass/Vol] 42 mg/dL Normal 40-60 [facility] Comment on above: Performed By: #### M ERY SULLIVAN, CBC, ANEU, ADIFF, CMP, GFR, LIP #### [address] [address] Cholesterol in LDL [Mass/Vol] 101 mg/dL Normal 0-130 [facility] Comment on above: Performed By: #### M REY SULLIVAN, CBC, ANEU, ADIFF, CMP, GFR, LIP #### [address] [address] Triglyceride [Mass/Vol] 159 mg/dL High 0-150 [facility] Comment on above: Result Comment: Trig lyceride Reference Interval: Less than 150 Normal 150-199 Borderline high risk 200-499 High risk 500 or higher Very high risk Performed By: #### M REY SULLIVAN, CBC, ANEU, ADIFF, CMP, GFR, LIP #### [id number] [place], [place] [address] Cardiology Visit Reporton Cardiology Visit Report [facility] [address] [place] [address] OFFICE VISIT Date of Service: 01/08/25 MR#: [id number] Acct: [id number] Name: KAUR VELEZ) Rep #: [id number] : 1955 Provider: Dr. Muriel Pearson MD Age/Sex: 69/M Location: [facility] [place] Status: Signed HPI HPI History of Present Illness Details: This gentleman with history of coronary artery disease status post CABG in 2002, cardiomyopathy with LVEF having since recovered, status post ICD, hypertension, dyslipidemia, diabetes mellitus and end- stage renal disease on dialysis, is here for a follow-up visit. Denies any complaints today. No chest pains. No shortness of breath. Denies orthopnea or PND. No ankle edema. Previously. Advised the patient to stop taking his amiodarone. It still shows up on his list. He is not sure if he is taking it or not. Intake Vital Signs 09/02/24 07:55 01/08/25 10:30 Height 5 ft 1 in 5 ft 1 in Weight: 191 lb 187 lb BMI 36.1 35.3 BP 102/65 127/71 H Blood Pressure Location Lt brachial Lt brachial Position Sitting Sitting Respiration 18 18 Pulse 75 68 Pulse Source Monitor Monitor Temp 97.4 F L Temperature Source Temporal Artery Pulse Oximetry (%) 93 Oxygen Delivery Method room air Intake Visit Reasons: 6 M FU Educational Aide Required: No Accompanied by: Self Is patient in pain?: No Allergies No Known Allergies Allergy (Verified 01/08/25 10:25) Medications ???Medication ???Instructions ???Recorded ???Confirmed ???Type gabapentin 100 mg capsule 100 mg PO DAILY 03/03/21 12/18/24 History sucroferric oxyhydroxide 500 mg 500 mg PO QPC 05/23/22 12/18/24 Hi story chewable tablet (Velphoro) lancets 33 gauge (OneTouch Delica #100 ea 05/24/23 12/18/24 History Plus Lancet) moringa 6000mg 1 tab PO 2XD 12/06/23 12/18/24 His tory fenofibrate micronized 200 mg 200 mg PO DAILY #30 caps 01/03/24 12/18/24 Rx capsule furosemide 80 mg tablet 80 mg PO BID #60 tabs 01/03/24 Rx metoprolol tartrate 50 mg tablet 50 mg PO BID #60 tabs 01/03/24 Rx simvastatin 20 mg tablet 20 mg PO QHS #30 tabs 01/03/24 Rx ammonium lactate 12 % lotion applic topical 01/29/24 12/18/24 H istory aspirin 81 mg tablet,delayed 81 mg PO QDAY 01/29/24 12/18/24 Hi story release blood sugar diagnostic (OneTouch #10 ea 01/29/24 12/18/24 History Ultra Test strips) blood-glucose sensor (Dexcom G6 01/29/24 12/18/24 History Sensor device) cholecalciferol (vitamin D3) 25 25 mcg PO QDAY 01/29/24 12/18/24 H istory mcg (1,000 unit) capsule dulaglutide 1.5 mg/0.5 mL 1.5 mg subcut QWEEK 01/29/2412/18 History subcutaneous pen injector ([facility]) hydroxyzine HCl 25 mg tablet 25 mg PO QHS 01/29/24 12/18/24 His tory latanoprost 0.005 % eye drops drp ophthalmic (eye) 01/29/2412/05 History insulin glargine 100 unit/mL (3 10 unit subcut QDAY 01/08/2501/08 History mL) subcutaneous pen (Lantus Solostar U-100 Insulin) insulin lispro 100 unit/mL 3 unit subcut TID 01/08/25 5 History subcutaneous pen (Humalog KwikPen (U-100) Insulin) Ejection fraction %: 53 Have you fallen in the past year?: No PFSH Medical History Chronic kidney disease (CKD) Influenza A Hypoxemia CAD (coronary artery disease) Excoriation of left lower leg Lymphedema PVD (peripheral vascular disease) Bilateral lower extremity edema 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 Obesity (BMI 30-39.9) 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 Coronary artery disease Dyslipidemia End stage renal disease on dialysis Hypertriglyceridemia Chronic renal failure, stage 5 Essential hypertension Pure hypercholesterolemia Type 2 diabetes mellitus Fatty liver Old myocardial infarction Angina decubitus Long-term use of high-risk medication Edema Family history of hypertension Abnormal stress test Tachycardia Presence of cardiac defibrillator ( 08/2004) Pulmonary hypertension Ischemic cardiomyopathy Chronic systolic congestive heart failure Atherosclerosis of coronary artery bypass graft without angina pectoris Surgical History History of permanent cardiac pacemaker placement Aortocoronary bypass status ( 02/22/03) Family History Mother Hypertension Sister Hypertension Social History Smoking Status: Former smoker second hand exposure: No alcohol intake: never substance use type: does not use caffeine: No ROS Const Const: Negative for fatigue or weakness Eyes Eyes: Negat (more content not included)... Normal [facility] LABORATORYOrdered By: Kirit Chavarria on 12-30-2024 Additional comments states he recenlty c ut back on his portions to try to attempt to lose weight [facility] Work Phone: Blood Glucose Frequency Other: varies; sometimes more, sometimes less; if alarms, he checks it [facility] Work Phone: Whitney 12-11-2024 VALERIEN Telephone (TXCTGL) KAUR VELEZ ([id number]) 1955 [facility] Date Time Provider Department 12/11/24 [facility]IDNEY TXP COORDINATORS TXCTGL During your visit today, we recorded the following information about you: Zita Jacobsen 12/11/2024 9:09 AM Signed Adela [facility] called in, she states colonoscopy is scheduled on 03/13/25 at [facility], as this is the soonest he can get in for an appointment, any questions her number is [phone]. Zita Jacobsen Allergies As of Date: 12/11/2024 (No Known Allergies) Date Reviewed: 08/30/2023 Reviewed by: Judith Busby, RN - Fully Assessed Reason for Visit: Testing Update [Other] Prescriptions as of 12/11/2024 - amiodarone (PACERONE) 200 mg tablet TAKE 1/2 (ONE-HALF) OF A TABLET BY MOUTH DAILY for heart - aspirin, enteric coated (ECOTRIN LOW STRENGTH) 81 mg EC tablet Take by mouth. - Cholecalciferol, Vitamin D3, 50 mcg (2,000 unit) cap Take by mouth. - J4-Y1-LRLI-cord-rhod-P. ginseng 71-44-90-400 mg cap cordyceps - FARXIGA 10 mg tablet Take 1 tablet by mouth every afternoon. - furosemide (LASIX) 80 mg tablet Take 1 tablet by mouth every 12 hours. - gabapentin (NEURONTIN) 100 mg capsule Take 1 capsule by mouth every afternoon. - insulin lispro (HUMALOG KWIKPEN) 100 unit/mL Inject 12 units subcutaneously before each meal and/or 4 units before snack, max daily dose 48 Unit - hydrOXYzine pamoate (VISTARIL) 25 mg capsule Take by mouth q 8 HR. - LEVEMIR FLEXPEN 100 unit/mL (3 mL) injection pen INJECT 58 units under skin twice daily - metoprolol tartrate, short acting, (LOPRESSOR) 25 mg tablet Take 1 tablet by mouth every 12 hours. - semaglutide (OZEMPIC) 1 mg/dose (4 mg/3 mL) pen Inject 1 mg subcutaneously. - semaglutide (OZEMPIC) 0.25 mg or 0.5 mg(2 mg/1.5 mL) pen Inject 0.5 mg subcutaneously. - simvastatin (ZOCOR) 20 mg tablet Take 20 mg by mouth daily at bedtime. - TRULICITY 1.5 mg/0.5 mL pen injector INJECT one pen OF solution INTRAMUSCULARLY weekly - VELPHORO 500 mg chew CRUSH OR CHEW AND SWALLOW 1 TABLET 3 TIMES A DAY WITH MEALS Problem List As Of Date 12/11/2024 Noted Resolved Obesity, Class II, BMI 35-39.9 [E66.812] 04/27/2023 Encounter Status:Closed by ZITA JACOBSEN on 12/11/24 [facility] CNCOon 11-18-2024 CNCO Letter Text [facility] CNPNon 10-27-2024 CNPN Telephone (TXCTGL) KAUR VELEZ ([id number]) 1955 [facility] Date Time Provider Department 10/27/24 KIDNEY TXP COORDINATORS TXCTGL During your visit today, we recorded the following information about you: Sarah Clark 10/27/2024 1:14 PM Signed Torie from [facility] called requesting an update on pt. I explained the pt needed to complete a colonoscopy, ECHO, and stress test to complete evaluation. She requested to speak to Chandra. Call back is [phone]. Chandra Jenkins RN 11/03/2024 12:12 PM Signed Nurse returned phone call to Torie regarding Kaur. Pt needs to see cardiology here at [facility] and following that appt pt will be schedule to see the txp team. Nurse asked the sw to assist the pt in getting his colonoscopy taken care of. Torie verbalized her understanding. Chandra Jenkins RN Allergies As of Date: 10/27/2024 (No Known Allergies) Date Reviewed: 08/30/2023 Reviewed by: Judith Busby, SAMI - Fully Assessed Reason for Visit: Follow Up [171] Prescriptions as of 11/03/2024 - amiodarone (PACERONE) 200 mg tablet TAKE 1/2 (ONE-HALF) OF A TABLET BY MOUTH DAILY for heart - aspirin, enteric coated (ECOTRIN LOW STRENGTH) 81 mg EC tablet Take by mouth. - Cholecalciferol, Vitamin D3, 50 mcg (2,000 unit) cap Take by mouth. - I7-B9-FHGY-cord-rhod-P. ginseng 86-46-51-400 mg cap cordyceps - FARXIGA 10 mg tablet Take 1 tablet by mouth every afternoon. - furosemide (LASIX) 80 mg tablet Take 1 tablet by mouth every 12 hours. - gabapentin (NEURONTIN) 100 mg capsule Take 1 capsule by mouth every afternoon. - insulin lispro (HUMALOG KWIKPEN) 100 unit/mL Inject 12 units subcutaneously before each meal and/or 4 units before snack, max daily dose 48 Unit - hydrOXYzine pamoate (VISTARIL) 25 mg capsule Take by mouth q 8 HR. - LEVEMIR FLEXPEN 100 unit/mL (3 mL) injection pen INJECT 58 units under skin twice daily - metoprolol tartrate, short acting, (LOPRESSOR) 25 mg tablet Take 1 tablet by mouth every 12 hours. - semaglutide (OZEMPIC) 1 mg/dose (4 mg/3 mL) pen Inject 1 mg subcutaneously. - semaglutide (OZEMPIC) 0.25 mg or 0.5 mg(2 mg/1.5 mL) pen Inject 0.5 mg subcutaneously. - simvastatin (ZOCOR) 20 mg tablet Take 20 mg by mouth daily at bedtime. - TRULICITY 1.5 mg/0.5 mL pen injector INJECT one pen OF solution INTRAMUSCULARLY weekly - VELPHORO 500 mg chew CRUSH OR CHEW AND SWALLOW 1 TABLET 3 TIMES A DAY WITH MEALS Problem List As Of Date 10/27/2024 Noted Resolved Obesity, Class II, BMI 35-39.9 [E66.812] 04/27/2023 Encounter Status:Closed by CHANDRA JENKINS on 11/03/24 [facility] Pulmonary Visit Reporton Pulmonary Visit Report [facility] [place] [address] [place] [address] OFFICE VISIT Date of Service: 09/02/24 MR#: [id number] Acct: [id number] Name: KAUR VELEZ) Rep #: [id number] : 1955 Provider: ELAYNE Connolly Age/Sex: 68/M Location: [facility].PMW Status: Signed Assessment and Plan Assessment and Plan (1) Sleep apnea: Status: Chronic Qualifiers: Sleep apnea type: obstructive Qualified Code(s): G47.33 - Obstructive sleep apnea (adult) (pediatric) Comment: Severe obstructive sleep apnea with an AHI of 52.7 Plan: Deteriorated. Once again, the patient has not been compliant with PAP therapy. He states that it is more difficult to breathe with the PAP machine in place. He is not interested in attempting to wear the device "every night". I did explain to him that if he is not compliant with it at least 4 hours nightly that it will not be reimbursed by insurance coverage and that the device will be repossessed. The patient states "that is fine". Given that he is not compliant with PAP therapy after several attempts, he may follow-up with this practice as needed. (2) Pulmonary hypertension: Status: Chronic Comment: Probable type II Plan: Symptomatically stable. Return to the office if he becomes symptomatic. (3) End stage renal disease on dialysis: Status: Chronic Plan: Complicates exam, plan, care and prognosis. (4) Obesity (BMI 30-39.9): Status: Chronic Plan: Complicates exam, plan, care and prognosis. Continue to encourage healthy weight loss. Plan Details Additional Comments: This note was generated with [employer]ich[employer] dictation software. It may contain incorrect words, spelling, and punctuation that were not noted in checking the note before signing. HPI 3 M FU Chief Complaint: PAP compliance HPI Comments Details: This patient presents to the office today for follow-up of his end-stage renal disease on dialysis, pulmonary hypertension complicated by diastolic heart failure and obstructive sleep apnea for which she is not compliant. He is ambulatory with the use of a cane. He has not recently been seen in the ED or urgent care for any respiratory illness. He has not required any antibiotics or prednisone for any breathing problems. He denies any shortness of breath. He also denies any cough, sputum production or hemoptysis. Denies any wheezing, chest tightness, chest pain or palpitations. He denies any fever, chills or body aches. The patient admits that he is not using his PAP device very often. He states that it makes it more difficult for him to breathe. He reports feeling that he breathes and rest more easily without the PAP device. Compliance report for the past 30 days shows 17% compliance with an average use of 24 minutes. Current setting is AutoPap 10 to 15 cm of water pressure typically being utilized at 10.1 to 11 cm water. Residual AHI 0.3 events per hour. Leaks are occurring. Intake Vital Signs 05/27/24 08:00 09/02/24 07:55 Height 5 ft 1 in 5 ft 1 in Weight: 191 lb BMI 36.1 BP 102/65 Blood Pressure Location Lt brachial Position Sitting Respiration 18 Pulse 75 Pulse Source Monitor Temp 97.4 F L Temperature Source Temporal Artery Pulse Oximetry (%) 93 Oxygen Delivery Method room air Intake Visit Reasons: 3 M FU Chief Complaint: establish care- diabetes Educational Aide Required: No DME Vendor: [employer] Accompanied by: Self Allergies No Known Allergies Allergy (Verified 09/02/24 10:12) Medications ???Medication ???Instructions ???Recorded ???Confirmed ???Type gabapentin 100 mg capsule 100 mg PO DAILY 03/03/21 09/02/24 History sucroferric oxyhydroxide 500 mg 500 mg PO QPC 05/23/22 09/02/24 Hi story chewable tablet (Velphoro) lancets 33 gauge (OneTouch Delica #100 ea 05/24/23 09/02/24 History Plus Lancet) moringa 6000mg 1 tab PO 2XD 12/06/23 09/02/24 His tory dapagliflozin propanediol 10 mg 10 mg PO DAILY #30 tabs 01/03/24 0 09/02/24 Rx tablet (Farxiga) fenofibrate micronized 200 mg 200 mg PO DAILY #30 caps 01/03/24 09/02/24 Rx capsule furosemide 80 mg tablet 80 mg PO BID #60 tabs 01/03/24 Rx metoprolol tartrate 50 mg tablet 50 mg PO BID #60 tabs 01/03/24 Rx simvastatin 20 mg tablet 20 mg PO QHS #30 tabs 01/03/24 Rx ammonium lactate 12 % lotion applic topical 01/29/24 09/02/24 H istory aspirin 81 mg tablet,delayed 81 mg PO QDAY 01/29/24 09/02/24 Hi story release blood sugar diagnostic (OneTouch #10 ea 01/29/24 09/02/24 History Ultra Test strips) blood-glucose sensor (Dexcom G6 01/29/24 09/02/24 History Sensor device) cholecalciferol (vitamin D3) 25 25 mcg PO QDAY 01/29/24 09/02/24 H istory mcg (1,000 unit) capsule dulaglutide 1.5 mg/0 (more content not included)... Normal [facility] Cardiology Visit Reporton Cardiology Visit Report [facility] [address] [facility] [place] [address] OFFICE VISIT Date of Service: 06/19/24 MR#: [id number] Acct: [id number] Name: GLENNPHUCToyinCORRINEDEXTER (Sanya) Rep #: [id number] : 1955 Provider: Dr. Muriel Pearson MD Age/Sex: 68/M Location: [facility] Status: Signed HPI HPI History of Present Illness Details: This gentleman with history of coronary artery disease status post CABG, ischemic cardiomyopathy with LVEF having since recovered, diabetes mellitus, end-stage renal disease on hemodialysis, hypertension and dyslipidemia is here for follow-up visit. Denies any chest pains. No shortness of breath. Denies orthopnea, PND, ankle edema. Denies any palpitations. Intake Vital Signs 02/21/24 11:00 06/19/24 09:15 Height 5 ft 1 in 5 ft 1 in Weight: 194 lb BMI 36.6 BP 113/69 Blood Pressure Location Lt brachial Position Sitting Respiration 16 Pulse 82 Pulse Source NIBP Intake Visit Reasons: 6 M FU Accompanied by: Friend Is patient in pain?: Yes (right leg; PCP managing) Allergies No Known Allergies Allergy (Verified 06/19/24 09:43) Medications ???Medication ???Instructions ???Recorded ???Confirmed ???Type gabapentin 100 mg capsule 100 mg PO DAILY 03/03/21 06/19/24 History sucroferric oxyhydroxide 500 mg 500 mg PO QPC 05/23/22 06/19/24 Hi story chewable tablet (Velphoro) lancets 33 gauge (OneTouch Mason #100 ea 05/24/23 05/27/24 History Plus Lancet) moringa 6000mg 1 tab PO 2XD 12/06/23 06/19/24 His tory dapagliflozin propanediol 10 mg 10 mg PO DAILY #30 tabs 01/03/24 0 06/19/24 Rx tablet (Farxiga) fenofibrate micronized 200 mg 200 mg PO DAILY #30 caps 01/03/24 06/19/24 Rx capsule furosemide 80 mg tablet 80 mg PO BID #60 tabs 01/03/24 Rx metoprolol tartrate 50 mg tablet 50 mg PO BID #60 tabs 01/03/24 Rx simvastatin 20 mg tablet 20 mg PO QHS #30 tabs 01/03/24 Rx ammonium lactate 12 % lotion applic topical 01/29/24 06/19/24 H istory aspirin 81 mg tablet,delayed 81 mg PO QDAY 01/29/24 06/19/24 Hi story release blood sugar diagnostic ([facility] ea 01/29/24 05/27/24 History Ultra Test strips) blood-glucose sensor (Dexcom G6 01/29/24 05/27/24 History Sensor device) cholecalciferol (vitamin D3) 25 25 mcg PO QDAY 01/29/24 06/19/24 H istory mcg (1,000 unit) capsule dulaglutide 1.5 mg/0.5 mL 1.5 mg subcut QWEEK 01/29/2406/19 History subcutaneous pen injector ([facility]) hydroxyzine HCl 25 mg tablet 25 mg PO QHS 01/29/24 06/19/24 His tory latanoprost 0.005 % eye drops drp ophthalmic (eye) 01/29/2406/07 History insulin detemir U-100 100 unit/mL 35 unit subcut BID 06/19/2406/19 History subcutaneous solution (Levemir U-100 Insulin) insulin lispro 100 unit/mL 4 unit subcut DAILY 06/19/2406/19 History subcutaneous pen (Humalog KwikPen (U-100) Insulin) Ejection fraction %: 53 Have you fallen in the past year?: No PFSH Medical History Abnormal stress test Angina decubitus Atherosclerosis of coronary artery bypass graft without angina pectoris Bilateral lower extremity edema CAD (coronary artery disease) Chronic kidney disease (CKD) Chronic renal failure, stage 5 Chronic systolic congestive heart failure Coronary artery disease Dyslipidemia Edema End stage renal disease on dialysis Essential hypertension Excoriation of left lower leg Family history of hypertension Fatty liver Hypertriglyceridemia Hypoxemia Influenza A Ischemic cardiomyopathy [employer] current use of amiodarone Long-term use of high-risk medication Lymphedema 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 Obesity (BMI 30-39.9) Old myocardial infarction Presence of cardiac defibrillator ( 08/2004) Problem with dialysis access Pulmonary hypertension Pure hypercholesterolemia PVD (peripheral vascular disease) Tachycardia Type 2 diabetes mellitus Surgical History Aortocoronary bypass status ( 02/22/03) History of permanent cardiac pacemaker placement Family History Mother Hypertension Sister Hypertension Social History Smoking Status: Former smoker second hand exposure: No alcohol intake: never substance use type: does not use caffeine: No ROS Const Const: Negative for fatigue, weakness, headache(s) or weight gain ENT ENT: Negative for headache(s), dizziness, Nosebleed/epistaxis or balance problems Cardio Chest Pain: No Palpitations: No Edema: None Muscle aches with walking: None Resp Respiratory: Negative for SOB with activity (more content not included)... Normal [facility] Pulmonary Visit Reporton Pulmonary Visit Report [facility] Pul[facility] Medicine of [address] [place] [address] OFFICE VISIT Date of Service: 05/27/24 MR#: [id number] Acct: [id number] Name: KAUR VELEZ) Rep #: [id number] : 1955 Provider: ELAYNE Connolly Age/Sex: 68/M Location: [facility]W Status: Signed Assessment and Plan Assessment and Plan (1) Sleep apnea: Status: Chronic Qualifiers: Sleep apnea type: obstructive Qualified Code(s): G47.33 - Obstructive sleep apnea (adult) (pediatric) Comment: Severe obstructive sleep apnea with an AHI of 52.7 Plan: Deteriorated. Recent polysomnogram indicates severe obstructive sleep apnea. Unfortunately, the patient has not been able to be compliant with PAP therapy. He reports that the mask is "too tight". The patient has a very thick accent, I suspect that there is a language barrier contributing to his understanding of the importance of being compliant with this device. He is agreeable to a visit to PAP education to evaluate his current mask. He believes that something more closely resembling a nasal cannula would be tolerable. Plan to follow-up in the office in 3 months to evaluate an additional compliance report once recommendations are made BiPAP education. The patient has been instructed to contact the office with any difficulties in the meantime. (2) Pulmonary hypertension: Status: Chronic Comment: Probable type II Plan: Symptomatically stable. Recent pulmonary stress test indicates that the patient does not become hypoxic during ambulation. There is no current need for supplemental oxygen. We will monitor closely given his comorbid condition of end-stage renal disease. Pulmonary function test did confirm a mild restrictive impairment, likely also related to his end-stage renal disease. Could also be related to his BMI. (3) End stage renal disease on dialysis: Status: Chronic Plan: Complicates exam, plan, care and prognosis. (4) Obesity (BMI 30-39.9): Status: Chronic Plan: Complicates exam, plan, care and prognosis. Continue to encourage healthy weight loss. Orders: Orders Self Mgmnt Educ Training Today G47.33 - Obstructive sleep apnea (adult) (pediatric) Plan Details Follow Up: 3 Months ([facility]) HPI 4 M FU Chief Complaint: test results HPI Comments Details: This patient presents to the office today for follow-up of his shortness of breath secondary to pulmonary hypertension and diastolic heart failure. He is ambulatory with the use of a cane. He has not recently been seen in the ED or urgent care for any respiratory illness. He has not required any antibiotics or prednisone for any breathing problems. Today he denies any shortness of breath. He also denies any cough, sputum production or hemoptysis. Denies any wheezing, chest tightness, chest pain or palpitations. He denies any fever, chills or body aches. Compliance report for the past 30 days shows 0% use. He was set up with AutoPap 10 to 15 cm of water. He was ordered for an overnight oximetry to be completed on AutoPap, however he did the testing on room air, no PAP therapy. It was requested that he repeat the test, nocturnal oximetry, with the use of his AutoPap. The patient reports that he is not able to be compliant with his PAP machine because the headgear is too tight". Test results: Polysomnogram completed on March 07, 2024. Overall AHI 52.7 events per hour. Impression is severe obstructive sleep apnea. Recommendation is a trial of AutoPap. Pulmonary function test completed on February 19, 2024. Impression is mild restrictive ventilatory impairment with a disproportionate reduction in diffusing capacity. 6-minute walk test completed on February 21, 2024. The patient was able to ambulate a total of 737 feet over the course of 6 minutes. He did not become hypoxic and does not currently require any supplemental oxygen. Intake Vital Signs 01/29/24 07:53 02/21/24 11:00 05/27/24 08:00 Height 5 ft 1 in 5 ft 1 in 5 ft 1 in Weight: 193 lb BMI 36.4 BP 135/73 H Blood Pressure Location Lt brachial Position Sitting Respiration 20 H Pulse 80 Pulse Source Monitor Temp 97.3 F L Temperature Source Temporal Artery Pulse Oximetry (%) 92 Oxygen Delivery Method room air Intake Visit Reasons: 4 M FU Educational Aide Required: No DME Vendor: gabrielle reyes Accompanied by: Self Is patient in pain?: No Allergies No Known Allergies Allergy (Verified 05/27/24 09:20) Medications ???Medication ???Instructions ???Recorded ???Confirmed ???Type gabapentin 100 mg capsule 100 mg PO DAILY 03/03/21 05/27/24 History sucroferric oxyhydroxide 500 mg 500 mg PO QPC 05/23/22 05/27/24 History chewable tablet (Velphoro) lancets 33 gauge (OneTouch Delica #100 ea 05/24/23 05/27/24 History Plus La (more content not included)... Normal [facility] ECHOon 04-22-2024 CONCLUSIONS: - Technically difficult exam due to body habitus and suboptimal positioning. - Exam indication: Re-evaluation of Hypertensive heart disease without change in clinical status - The left ventricle is mildly dilated. Left ventricular systolic function is mildly decreased. EF = 50 5% (2D 4-ch.) Definity contrast used for endocardial border detection. The posterior wall, apical septal segment, and apical inferior segment are mildly hypokinetic. - The right ventricle is normal in size. Right ventricular systolic function is low normal. - The right atrial cavity is mildly dilated. - The visualized aorta is borderline dilated with a maximal dimension of 3.8 cm. - There is mild (1+) tricuspid valve and pulmonic valve regurgitation. - Estimated right ventricular systolic pressure is 53 mmHg consistent with moderate pulmonary hypertension. Estimated right atrial pressure is 3 mmHg based on IVC assessment. - The patient has not had a prior CC echocardiographic exam for comparison. * * * Final * * * [facility] Echocardiography Report: Transthoracic Echo [facility] Date of service: 04/22/2024 10:52:43 AM [facility] Ordering physician: DENISE ALBRIGHT Indication: Re-evaluation of Hypertensive heart disease without change in clinical status Technologist: Mallory Escobar and staff Interpreting physician: Darien Gong MD PATIENT: Name: KAUR VELEZ : 1955 Age: 68 years Gender: M History of diabetes mellitus, hypertension and coronary artery disease. Previous cardiovascular interventions: CABG ICD implant Primary rhythm: sinus. Height: 154.90 cm BSA: 1.97 m Weight: 89.81 kg BMI: 37.4 kg/m Heart rate 81 bpm Blood pressure 103/50 mmHg Technically difficult exam due to body habitus and suboptimal positioning. Color Doppler was utilized to interrogate the cardiac valves assessed and spectral Doppler was utilized to determine the flow velocities and pressure gradients reported in this exam. MEASUREMENTS: Value Indexed Normal Max aortic dimension 3.8 cm Ao < 3.8 Left atrial volume 55 ml (biplane A-L) 28 ml/m Brianne <= 34 LV ID (diastole) 5.1 cm (2D) 2.59 cm/m LV ID (systole) 4.1 cm (2D) 2.09 cm/m IVS, leaflet tips 1.2 cm (2D) Posterior wall thickness 1.2 cm (2D) Left ventricular mass 241 g (2D) 123 g/m LV stroke volume 86 ml (2D 4-ch.) LV end diastolic volume 171 ml (2D 4-ch.) 87.2 ml/m 34<=EDVi<75 LV end systolic volume 86 ml (2D 4-ch.) 43.7 ml/m Ejection Fraction 50 % (2D 4-ch.) EF > 52 FINDINGS: LEFT VENTRICLE The left ventricle is mildly dilated. Left ventricular systolic function is mildly decreased regionally. Left ventricular diastolic function was not evaluated due to E/A Fusion. Definity contrast used for endocardial border detection. Wall Motion: The posterior wall, apical septal segment, and apical inferior segment are mildly hypokinetic. All remaining scored segments are normal. RIGHT VENTRICLE The right ventricle is normal in size. Pacer wires are noted in the right ventricle. Right ventricular systolic function is low normal. RV systolic tissue Doppler velocity is 6.0 cm/s. Tricuspid annular displacement is 1.2 cm. Estimated right ventricular systolic pressure is 53 mmHg consistent with moderate pulmonary hypertension. Estimated right atrial pressure is 3 mmHg based on IVC assessment. LEFT ATRIUM The left atrial cavity is normal in size. Pulmonary Veins: The pulmonary venous pattern showed blunted systolic flow. RIGHT ATRIUM The right atrial cavity is mildly dilated. Pacer wires are noted in the right atrium. Inferior Vena Cava: The inferior vena cava appears normal measuring 1.1 cm. The vessel decreases greater than 50 percent with inspiration. MITRAL VALVE There is moderate mitral annular calcification observed posterior. There is trace mitral valve regurgitation. There is no thickening. TRICUSPID VALVE The tricuspid valve leaflets are structurally normal. There is mild (1+) tricuspid valve regurgitation. The hepatic venous pattern showed normal systolic flow. AORTIC VALVE There is trace aortic valve regurgitation. Tricuspid aortic valve. There is mild thickening. There is mild calcification. PULMONIC VALVE There is mild (1+) pulmonic valve regurgitation. There is no thickening. AORTA The visualized aorta is borderline dilated. Measurements - Mid ascending aorta 3.8 cm. PULMONARY ARTERIES The pulmonary arteries are unseen or not interrogated. INTERATRIAL SEPTUM There is no evidence of intracardiac shunting as detected by Doppler. INTERVENTRICULAR SEPTUM There is abnormal motion of the interventricular septum secondary to a pacemaker and prior cardiac surgery. There is no flow through the interventricular septum as detected by Doppler. PERICARDIUM There is no pericardial effusion. There is an epicardial fat pad. [facility] Heart Perfusion W stress and W radionuclide Rodney 04-22-2024 * * *Final Report* * * DATE OF EXAM: Apr 22 2024 2:53PM AMANDEEP 0006 - NM CARDIAC PERF STRESS/PHARM / PROCEDURE REASON: multiple diagnoses * * * * Physician Interpretation * * * * Stress Fuller Brush Worker Report: [facility] Date of service: 04/22/2024 12:58:00 PM Supervising physician: Darien Gong MD PATIENT: Name: KAUR VELEZ Age: 68 years Gender: M The supervising physician was in the department and immediately available. * * * Final * * * ---- PATIENT: Name: KAUR VELEZ Age: 68 years Gender: M CONCLUSIONS: 1. SPECT Perfusion Study: Abnormal. 2. There is mild (<10%) ischemia in the territory of the LAD. 3. There is a small (<10%) fixed perfusion defect in the LAD territory. 4. There is a small (<10%) fixed perfusion defect in the RCA territory. 5. Left ventricle is mildly dilated. The left ventricle systolic function is mildly decreased. 6. Right ventricle is normal in size. The right ventricle systolic function is normal. 7. This is an intermediate risk scan. Gated Stress IR LVEF % 50 Prior Study Comparison No prior nuclear cardiology exam available for comparison. Nuclear Med Report:1-Day Gated SPECT Myocardial Perfusion with Regadenoson Stress: Myocardial perfusion imaging was performed at rest 30 minutes following the IV injection of the radiotracer. The patient received 0.4 mg of regadenoson, via rapid IV push, immediately followed by radiotracer IV. Gated post stress tomographic imaging was performed 30 to 60 minutes later. See administered radiotracer and doses below. [facility] Date of service: 04/22/2024 12:58:00 PM Ordering Physician: DENISE ALBRIGHT. Requesting Physician: Indication: Preop eval for noncard surg with intermediate risk and poor exercise tolerance Interpreting physician: Darien Gong MD Previous Cardiovascular Interventions: 4-vessel CABG 1999 or 2000 Pacemaker insertion- unknown date; records unavailable Previous treadmill stress test, per patient Height: 154.94 cm BSA: 1.97 m Weight: 89.81 kg BMI: 37.4 kg/m Imaging Protocol Limitation Reason Liver Retention. Exam Type: Rest Stress Radiopharm: Tc-99m Tetrofosmin Tc-99m Tetrofosmin Dosage(mCi): 11.8 41.6 Stress Agent: Regadenoson 0.4mg [facility] Resting Blood Press: 129/82 mmHg Image Quality The overall study imaging quality was deemed to be fair. The following technical issues were noted: Liver Retention. FINDINGS: Left Ventricle Wall Motion: Stress IR - The basal inferolateral segment, apical lateral segment, apical anterior segment, and basal inferior segment are hypokinetic. The apex is equivocal. All remaining scored segments are normal. Rest IR - Gated Stress IR - Reversibility - Stress IR Stress IR Gated Stress IR LVEF: 50 % ED Volume: 139 ml ES Volume: 70 ml TID: 0.99 Perfusion Findings Stress IR - Summed Score=15 There is a severe perfusion defect in the apical lateral segment and apical anterior segment. There is a moderate perfusion defect in the basal inferolateral segment, mid anterolateral segment, basal inferior segment, and apex. There is a mild perfusion defect in the mid inferolateral segment. All remaining scored segments show normal perfusion. Rest IR - Summed Score=11 There is a moderate perfusion defect in the basal inferolateral segment, apical lateral segment, apical anterior segment, basal inferior segment, and apex. There is a mild perfusion defect in the mid anterolateral segment. All remaining scored segments show normal perfusion. Stress IR Rest IR Summed Score=15 Summed Score=11 LEFT VENTRICLE The left ventricle is mildly dilated. Left ventricular systolic function is mildly decreased. Right Ventricle The right ventricle is normal in size. Right ventricle systolic function is normal. * * * Final * * * ---- Stress ECG Report: [facility] Date of service: 04/22/2024 12:58:00 PM Ordering physician: DENISE ALBRIGHT health care law specialist: Rebecca Sadler Construction Person: Radha Beltrán RN Interpreting physician: Darien Gong MD Patient name: KAUR VELEZ Age: 68 years Gend (more content not included)... [facility] Provider, [facility]24 * * *Final Report* * * DATE OF EXAM: Apr 22 2024 2:53PM [facility] 0006 - NM CARDIAC PERF STRESS/PHARM / PROCEDURE REASON: multiple diagnoses * * * * Physician Interpretation * * * * Stress Fuller Brush Worker Report: [facility] Date of service: 04/22/2024 12:58:00 PM Supervising physician: Darien Gong MD PATIENT: Name: KAUR VELEZ Age: 68 years Gender: M The supervising physician was in the department and immediately available. * * * Final * * * ---- PATIENT: Name: KAUR VELEZ Age: 68 years Gender: M CONCLUSIONS: 1. SPECT Perfusion Study: Abnormal. 2. There is mild (<10%) ischemia in the territory of the LAD. 3. There is a small (<10%) fixed perfusion defect in the LAD territory. 4. There is a small (<10%) fixed perfusion defect in the RCA territory. 5. Left ventricle is mildly dilated. The left ventricle systolic function is mildly decreased. 6. Right ventricle is normal in size. The right ventricle systolic function is normal. 7. This is an intermediate risk scan. Gated Stress IR LVEF % 50 Prior Study Comparison No prior nuclear cardiology exam available for comparison. Nuclear Med Report:1-Day Gated SPECT Myocardial Perfusion with Regadenoson Stress: Myocardial perfusion imaging was performed at rest 30 minutes following the IV injection of the radiotracer. The patient received 0.4 mg of regadenoson, via rapid IV push, immediately followed by radiotracer IV. Gated post stress tomographic imaging was performed 30 to 60 minutes later. See administered radiotracer and doses below. [facility] Date of service: 04/22/2024 12:58:00 PM Ordering Physician: DENISE ALBRIGHT. Requesting Physician: Indication: Preop eval for noncard surg with intermediate risk and poor exercise tolerance Interpreting physician: Darien Gong MD Previous Cardiovascular Interventions: 4-vessel CABG 1999 or 2000 Pacemaker insertion- unknown date; records unavailable Previous treadmill stress test, per patient Height: 154.94 cm BSA: 1.97 m Weight: 89.81 kg BMI: 37.4 kg/m Imaging Protocol Limitation Reason Liver Retention. Exam Type: Rest Stress Radiopharm: Tc-99m Tetrofosmin Tc-99m Tetrofosmin Dosage(mCi): 11.8 41.6 Stress Agent: Regadenoson 0.4mg [facility] Resting Blood Press: 129/82 mmHg Image Quality The overall study imaging quality was deemed to be fair. The following technical issues were noted: Liver Retention. FINDINGS: Left Ventricle Wall Motion: Stress IR - The basal inferolateral segment, apical lateral segment, apical anterior segment, and basal inferior segment are hypokinetic. The apex is equivocal. All remaining scored segments are normal. Rest IR - Gated Stress IR - Reversibility - Stress IR Stress IR Gated Stress IR LVEF: 50 % ED Volume: 139 ml ES Volume: 70 ml TID: 0.99 Perfusion Findings Stress IR - Summed Score=15 There is a severe perfusion defect in the apical lateral segment and apical anterior segment. There is a moderate perfusion defect in the basal inferolateral segment, mid anterolateral segment, basal inferior segment, and apex. There is a mild perfusion defect in the mid inferolateral segment. All remaining scored segments show normal perfusion. Rest IR - Summed Score=11 There is a moderate perfusion defect in the basal inferolateral segment, apical lateral segment, apical anterior segment, basal inferior segment, and apex. There is a mild perfusion defect in the mid anterolateral segment. All remaining scored segments show normal perfusion. Stress IR Rest IR Summed Score=15 Summed Score=11 LEFT VENTRICLE The left ventricle is mildly dilated. Left ventricular systolic function is mildly decreased. Right Ventricle The right ventricle is normal in size. Right ventricle systolic function is normal. * * * Final * * * ---- Stress ECG Report: [facility] Date of service: 04/22/2024 12:58:00 PM Ordering physician: DENISE ALBRIGHT health care law specialist: Rebecca Sadler Construction Person: Radha Beltrán RN Interpreting physician: Darien Gong MD Patient name: KAUR VELEZ Age: 68 years Gender: M Height: 154.94 cm BSA: 1.97 m Weight: 89.81 kg BMI: 37.4 kg/m Indication: Encounter for pre-procedural cardiovascular examination for non-cardiac surgery and Encounter for screening (more content not included)... [facility] [place] [facility] Radiology Study observation (narrative) [facility] [place] [facility] NM Heart Perfusion W stress and W radionuclide IVOrdered By: [facility] Provider on 04-22-2024 [facility] [place] [facility] Whitney 03-11-2024 VALERIEN Telephone (TXCTGL) LORIKAUR ([id number]) 1955 [facility] Date Time Provider Department 03/11/24 CHANDRA JENKINS TXCTGL During your visit today, we recorded the following information about you: Chandra Jenkins RN 03/11/2024 3:50 PM Signed Nurse called and spoke with Mr Webber(friend) regarding SANYA. Pt needs colonoscopy, stress test and ECHO to complete evaluation. Orders placed today. Mr Webber verbalized his understanding. Chandra Jenkins RN Allergies As of Date: 03/11/2024 (No Known Allergies) Date Reviewed: 08/30/2023 Reviewed by: Judith Busby RN - Fully Assessed Reason for Visit: Reminder Call [[id number]] Prescriptions as of 03/11/2024 - amiodarone (PACERONE) 200 mg tablet TAKE 1/2 (ONE-HALF) OF A TABLET BY MOUTH DAILY for heart - aspirin, enteric coated (ECOTRIN LOW STRENGTH) 81 mg EC tablet Take by mouth. - Cholecalciferol, Vitamin D3, 50 mcg (2,000 unit) cap Take by mouth. - G4-P7-EWXL-cord-rhod-P. ginseng 51-02-89-400 mg cap cordyceps - FARXIGA 10 mg tablet Take 1 tablet by mouth every afternoon. - furosemide (LASIX) 80 mg tablet Take 1 tablet by mouth every 12 hours. - gabapentin (NEURONTIN) 100 mg capsule Take 1 capsule by mouth every afternoon. - insulin lispro (HUMALOG KWIKPEN) 100 unit/mL Inject 12 units subcutaneously before each meal and/or 4 units before snack, max daily dose 48 Unit - hydrOXYzine pamoate (VISTARIL) 25 mg capsule Take by mouth q 8 HR. - LEVEMIR FLEXPEN 100 unit/mL (3 mL) injection pen INJECT 58 units under skin twice daily - metoprolol tartrate, short acting, (LOPRESSOR) 25 mg tablet Take 1 tablet by mouth every 12 hours. - semaglutide (OZEMPIC) 1 mg/dose (4 mg/3 mL) pen Inject 1 mg subcutaneously. - semaglutide (OZEMPIC) 0.25 mg or 0.5 mg(2 mg/1.5 mL) pen Inject 0.5 mg subcutaneously. - simvastatin (ZOCOR) 20 mg tablet Take 20 mg by mouth daily at bedtime. - TRULICITY 1.5 mg/0.5 mL pen injector INJECT one pen OF solution INTRAMUSCULARLY weekly - VELPHORO 500 mg chew CRUSH OR CHEW AND SWALLOW 1 TABLET 3 TIMES A DAY WITH MEALS Problem List As Of Date 03/11/2024 Noted Resolved Obesity, Class II, BMI 35-39.9 [E66.812] 04/27/2023 Encounter Status:Closed by CHANDRA JENKINS on 03/11/24 Normal [facility] 6 Minute Walk Teston 024 6 Minute Walk Test y [facility] Pulmonary Services/Neurology [address] [place] [address] MR#: [id number] Acct: [id number] Name: KAUR VELEZ Rep #: [id number] : 1955 68 From: Carter Melendez MD Referring Dr: Riya Connolly NP ACADEMIC ASSISTANT-C Status: REG CLI Location: PSN Date: Sex: M A PSN 6 Minute Walk Test 6 Minute Walk Test 6 Minute Walk Test: 6 Minute Walk Test PSN:6-Minute Walk Test Start: 02/21/24 11:13 Freq: Status: Active Protocol: RESP.6MINW Document 02/21/24 11:00 AEH (Rec: 02/21/24 11:18 AEH [id number]) 6 Minute Walk Test Date Performed 02/21/24 Time Performed 11:00 Height 5 ft 1 in Weight: 87.09 kg Weight in Pounds 192.[address]: Javad Assistive device used: Cane Pre-test Oxygen Delivery Method Room Air Pulse Ox (%) 93 Pulse Rate (60-100 beats/min) 72 Dyspnea Farzad Scale (0-10) 0 Exertion Farzad Scale (6-20) 6 1st minute Oxygen Delivery Method Room Air Pulse Ox (%) 94 Pulse Rate (60-100 beats/min) 78 2nd minute Oxygen Delivery Method Room Air Pulse Ox (%) 91 Pulse Rate (60-100 beats/min) 83 3rd minute Oxygen Delivery Method Room Air Pulse Ox (%) 93 Pulse Rate (60-100 beats/min) 78 4th minute Oxygen Delivery Method Room Air Pulse Ox (%) 93 Pulse Rate (60-100 beats/min) 84 5th minute Oxygen Delivery Method Room Air Pulse Ox (%) 91 Pulse Rate (60-100 beats/min) 78 6th minute Oxygen Delivery Method Room Air Pulse Ox (%) 91 Pulse Rate (60-100 beats/min) 79 Dyspnea Farzad Scale (0-10) 0 Exertion Farzad Scale (6-20) 11 Post-test Oxygen Delivery Method Room Air Pulse Ox (%) 92 Pulse Rate (60-100 beats/min) 76 Full Laps Walked 12 Partial Lap, Number of Tiles Walked 29 Total Distance Walked (ft) 737 Interpretation Interpretation: The patient was able to ambulate 737 feet over the course of 6 minutes on room air with the assistance of a cane and no breaks. The patient did experience significant desaturation from a baseline of 94% to as low as 91%. No significant tachycardia was noted during testing. These findings are consistent with a respiratory limitation exercise tolerance. Recommendations Recommendations: No supplemental oxygen is indicated at this time. However, patient will need to be followed closely given level of desaturation. 03/07/241534 Date Carter Melendez MD CC: Date Dictated: 03/07/241533 Date Transcribed: 03/07/241533 Tree Thinner: Dr. Carter Melendez MD Signed Normal [facility] AMB POC HEMOGLOBIN A1Con HbA1c (Bld) [Mass fraction] 5.9 % Abnormal - 5.7 % [facility] HbA1c (Bld) [Mass fraction]o n 02-28-2024 Interpretation and review of laboratory results Abnormal [facility] Office Visiton 02-28-2024 Follow-up visit [id number] Kaur Velez 1955 [facility] Provider Department Center 02/28/2024 [id number] RUIZ [facility] None No family history on file Level of Service:38399 [place] OFFICE/OUTPATIENT NEW MODERATE MDM 45 MINUTES Reason for Visit and Comments: Follow-up [049387] Normal [facility] Progress Noteon 02-28-2024 Progress Note [address] [facility] ENDOCRINOLOGY - [place] [address] [facility] [address] Dept: [phone] Dept Visit type: New Patient Reason for Visit: Follow-up Assessment and Plan 1. Type 2 diabetes mellitus with hyperglycemia, with long-term current use of insulin ([facility]) - AMB POC HEMOGLOBIN A1C - glucose 4 g chewable tablet; Chew 4 tablets (16 g) Daily as needed for low blood sugar., Starting Sun02/28/2024, Until Sun02/27/2025 at 2359, Normal - glucagon (Gvoke HypoPen 2-Pack) 1 MG/0.2ML injection; Inject 0.2 mL (1 mg) under the skin Once as needed for low blood sugar for up to 8 doses., Starting Sun02/28/2024, Normal - Hm Diabetes Foot Exam - [facility] - dapagliflozin (Farxiga) 10 MG tablet; Take 1 tablet (10 mg) by mouth daily., Starting Sun02/28/2024, Until Sun02/27/2025, Normal - dulaglutide (Trulicity) 0.75 MG/0.5ML; Inject 0.75 mg under the skin 1 (one) time per week., Starting Sun02/28/2024, Until Sun02/27/2025, Normal - insulin detemir (Levemir) 100 UNIT/ML injection; Inject 50 Units under the skin 2 times daily., Starting Sun02/28/2024, Until Sun02/27/2025, Normal - insulin lispro (HumaLOG) 100 UNIT/ML pen injection; 10 units TIDWC + SSI MDD 70 units, Normal - pen needle 32G x 4 mm misc; Use as instructed, Normal 2. ESRD (end stage renal disease) on dialysis ([facility]) 3. Type 2 diabetes mellitus with hyperlipidemia (HCC) ([facility]) 4. Hypertension associated with type 2 diabetes mellitus (HCC) ([facility]) 5. Class 2 severe obesity with serious comorbidity and body mass index (BMI) of 36.0 to 36.9 in adult, unspecified obesity type ([facility]) 6. Type 2 diabetes mellitus with diabetic polyneuropathy, with long-term current use of insulin ([facility]) No results found for: "EGFR", "TSH", "CHOL", "TRIGLYCERIDE", "HDL", "LDLCALC", "MICROALBCREA", ALBUMINCREAT Lab Results Component Value Date HGBA1C 5.9 (A) 02/28/2024 DM2 Diabetes is: poorly controlled A1C Target: 7.5-8% A1c in presence of anemia and ESRD Insulin is necessary for ongoing management Lab Results Component Value Date HGBA1C 5.9 (A) 02/28/2024 Recommendations: Patient will make the following changes to regimen: - Levemir 50 BID - Farxiga 10 mg every day - Trulicity 0.75 mg QW - Insulin Lispro 02/13/10 TIDWC + SSI -Metformin not a good idea re: eGFR --> Labs to be done fasting prior to next visit; discussed holding supplements 5 days prior. --> Continue BG monitoring: via Sergo 2 (or FSBS 4 times per day) and send in BGL as needed for review. --> Backup Meter: has at home --> Hypos: Glucagon and Glucose Tabs --> DMFE: today Education: Discussed with Patient: - Notification Parameters - He can follow up with Primary Care moving forward - Discussed healthy balanced diet and exercise - Discussed importance of annual dilated eye exam for Diabetes - Discussed potential medication side effects - Discussed blood glucose goals and A1C targets - Discussed uncontrolled diabetes potential effects on organ systems - Discussed hypoglycemia treatment plan - Discussed importance of taking meds as prescribed - Discussed importance of foot care and follow up with Podiatry as needed for Diabetes - Discussed importance of Follow up for Diabetes - Patient instructed to call office if BG over 250 or under 70 consistently HTN - Patient is taking Amiodarone and Metoprolol. Continue as prescribed - Cardiology manages - BP today: BP Readings from Last 1 Encounters: 02/28/24 128/76 HLD - Patient is taking Statin and Fenofibrate, continue as prescribed - Discussed healthy diet, exercise, and A1C control - Cardiology manages Obesity BMI Readings from Last 1 Encounters: 02/28/24 37.68 kg/m? - Continue to work on lifestyle changes: dietary habits; increasing activity as able, weight reduction - Optimize DM agents to aid w/ the same. ESRD on Dialysis - HD M/W/F - Last eGFR was 10 on 06/2023 - Will continue to follow renal panels - Discussed importance of BG control for kidney protection - Discussed elevated A1c effect on kidneys over time - Neprhology manages Neuropathy - Discussed blood glucose control to prevent worsening of neuropathy - Discussed daily foot checks to watch for wounds/ulcers - Recommended continuing to follow with Podiatry - sees provider in [place], unsure of name - Patient counseled about these recommendations. Patient voiced understanding. [] Records from outside facility/PCP office to be requested. [x] Scripts sent to pharmacy of choice. Follow up for Follow wiht PCP moving forward. Diagnostic Data Reviewed Today: CGM AGP Reviewed: No Subjective HPI PCP: No primary care provider on file. Referring Provider: PCP Initial [facility] Office visit: 02/28/2024 Patient presented with brother who answers some questions for him. He is mild LEP History of Type 2 Diabetes Time of Onset: 2 years a (more content not included)... Normal [facility] .GFRon 02-24-2024 GFR Non- 9 ml/min/1.73sqm [facility] Comment on above: Result Comment: GFR Population mean for , Non- Americans Ages 20-29 = 116 mL/min/1.73 sq.m. Ages 30-39 = 107 mL/min/1.73 sq.m. Ages 40-49 = 99 mL/min/1.73 sq.m. Ages 50-59 = 93 mL/min/1.73 sq.m. Ages 60-69 = 85 mL/min/1.73 sq.m. Ages 70+ = 75 mL/min/1.73 sq.m. Chronic Kidney Disease: Less than 60 mL/min/1.73 square meters End Stage Renal Disease: Less than 15 mL/min/1.73 square meters Performed By: #### M ORPH, MDW, CBC, ANEU, ADIFF, CMP, GFR, LIP #### [address] [place] [place], [place] [address] GFR 11 ml/min/1.73sqm [facility] Comment on above: Result Comment: GFR Population mean for , Non- Americans Ages 20-29 = 116 mL/min/1.73 sq.m. Ages 30-39 = 107 mL/min/1.73 sq.m. Ages 40-49 = 99 mL/min/1.73 sq.m. Ages 50-59 = 93 mL/min/1.73 sq.m. Ages 60-69 = 85 mL/min/1.73 sq.m. Ages 70+ = 75 mL/min/1.73 sq.m. Chronic Kidney Disease: Less than 60 mL/min/1.73 square meters End Stage Renal Disease: Less than 15 mL/min/1.73 square meters Performed By: #### M REY SULLIVAN, CBC, ANEU, ADIFF, CMP, GFR, LIP #### [place] [address] .MDWon 02-24-2024 Monocyte Distribution Width 16.21 Normal 0.00-20.00 [facility] Comment on above: Result Comment: For ED adult patients suspected of sepsis, MDW<=20.0 does not rule out sepsis or risk of sepsis Performed By: #### M REY SULLIVAN, CBC, ANEU, ADIFF, CMP, GFR, LIP #### [place] [address] .Manual Diffon 02-24-2024 Basophil %, Manual 0.0 % Normal 0[facility]0-2.5 [facility] Comment on above: Performed By: #### M REY SULLIVAN, CBC, ANEU, ADIFF, CMP, GFR, LIP #### [place] [address] Basophil, Abs Manual 0.0 10 3/mcL Normal 0.0-0.2 [facility] Comment on above: Performed By: #### M REY SULLIVAN, CBC, ANEU, ADIFF, CMP, GFR, LIP #### [place] [address] Eosinophil %, Manual 0.0 % Normal 0.0-7.0 [facility] Comment on above: Performed By: #### M REY SULLIVAN, CBC, ANEU, ADIFF, CMP, GFR, LIP #### [place] [address] Eosinophil, Abs Manual 0.0 10 3/mcL Normal 0.0-0.7 [facility] Comment on above: Performed By: #### M REY SULLIVAN, CBC, ANEU, ADIFF, CMP, GFR, LIP #### [address] [address] Lymphocyte %, Manual 20.0 % Normal 20.0-40.0 [facility] Comment on above: Performed By: #### M REY SULLIVAN, CBC, ANEU, ADIFF, CMP, GFR, LIP #### [address] [address] Lymphocyte, Abs Manual 1.5 10 3/mcL Normal 0.9-4.3 [facility] Comment on above: Performed By: #### M REY SULLIVAN, CBC, ANEU, ADIFF, CMP, GFR, LIP #### [address] [address] Monocyte %, Manual 10.0 % Normal 2.0-13.0 [facility] Comment on above: Performed By: #### M REY SULLIVAN, CBC, ANEU, ADIFF, CMP, GFR, LIP #### [address] [address] Monocyte, Abs Manual 0.7 10 3/mcL Normal 0.1-1.4 [facility] Comment on above: Performed By: #### M REY SULLIVAN, CBC, ANEU, ADIFF, CMP, GFR, LIP #### [address] [address] Neutrophil %, Manual 70.0 % Normal 50.0-75.0 [facility] Comment on above: Performed By: #### M REY SULLIVAN, CBC, ANEU, ADIFF, CMP, GFR, LIP #### [address] [address] Neutrophil, Abs Manual 5.1 10 3/mcL Normal 2.3-8.1 [facility] Comment on above: Performed By: #### M REY SULLIVAN, CBC, ANEU, ADIFF, CMP, GFR, LIP #### [address] [address] Nucleated RBC 0.0 /100 WBC Normal [facility] Comment on above: Performed By: #### M REY SULLIVAN, CBC, ANEU, ADIFF, CMP, GFR, LIP #### [address] [address] .Morphon 02-24-2024 Anisocytosis Ql (Bld) 1+ Normal [facility] Comment on above: Performed By: #### M REY SULLIVAN, CBC, ANEU, ADIFF, CMP, GFR, LIP #### [address] [address] Hypochrom 1+ Normal [facility] Comment on above: Performed By: #### M REY SULLIVAN, CBC, ANEU, ADIFF, CMP, GFR, LIP #### [address] [address] Platelet Estimate Normal Normal [facility] Comment on above: Performed By: #### M REY SULLIVAN, CBC, ANEU, ADIFF, CMP, GFR, LIP #### [address] [address] [facility] BUN/Creatinine Ratio 13 ratio Normal 7-27 [facility] Comment on above: Performed By: #### M REY SULLIVAN, CBC, ANEU, ADIFF, CMP, GFR, LIP #### [address] [address] Calcium [Mass/Vol] 8.8 mg/dL Normal 8.4-10.2 [facility] Comment on above: Performed By: #### M REY SULLIVAN, CBC, ANEU, ADIFF, CMP, GFR, LIP #### [address] [address] Chloride [Moles/Vol] 97 mmol/L Low 98-107 [facility] Comment on above: Performed By: #### M REY SULLIVAN, CBC, ANEU, ADIFF, CMP, GFR, LIP #### [place] [id number] CO2 [Moles/Vol] 28 mmol/L Normal 23-31 [facility] Comment on above: Performed By: #### M REY SULLIVAN, CBC, ANEU, ADIFF, CMP, GFR, LIP #### [address] [address] Creatinine [Mass/Vol] 6.06 mg/dL High 0.70-1.30 [facility] Comment on above: Result Comment: Test ing performed on Siemens Dimension EXL analyzer using a modified kinetic Samina technique. Performed By: #### M REY SULLIVAN, CBC, ANEU, ADIFF, CMP, GFR, LIP #### [address] [address] Electrolyte Balance 11.0 mEq/L Normal 4.0-15.0 [facility] Comment on above: Performed By: #### M REY SULLIVAN, CBC, ANEU, ADIFF, CMP, GFR, LIP #### [address] [address] Glucose [Mass/Vol] 111 mg/dL Normal 80-115 [facility] Comment on above: Performed By: #### M REY SULLIVAN, CBC, ANEU, ADIFF, CMP, GFR, LIP #### [address] [address] Potassium [Moles/Vol] 5.0 mmol/L Normal 3.5-5.1 [facility] Comment on above: Performed By: #### M REY SULLIVAN, CBC, ANEU, ADIFF, CMP, GFR, LIP #### [address] [address] Sodium [Moles/Vol] 136 mmol/L Normal 136-145 [facility] Comment on above: Performed By: #### M REY SULLIVAN, CBC, ANEU, ADIFF, CMP, GFR, LIP #### [address] [address] Urea nitrogen [Mass/Vol] 79 mg/dL High 7-18 [facility] Comment on above: Performed By: #### M REY SULLIVAN, CBC, ANEU, ADIFF, CMP, GFR, LIP #### [address] [address] CBCon 02-24-2024 Erythrocyte distribution width (RBC) [Ratio] 14.1 % Normal 11.5-15.5 [facility] Comment on above: Performed By: #### M REY SULLIVAN, CBC, ANEU, ADIFF, CMP, GFR, LIP #### [address] [address] Hematocrit (Bld) [Volume fraction] 34.8 % Low 40.0-52.0 [facility] Comment on above: Performed By: #### M REY SULLIVAN, CBC, ANEU, ADIFF, CMP, GFR, LIP #### [address] [address] Hgb 11.5 G/dL Low 13.0-17.5 [facility] Comment on above: Performed By: #### M REY SULLIVAN, CBC, ANEU, ADIFF, CMP, GFR, LIP #### [address] [address] MCH (RBC) [Entitic mass] 30.1 pg Normal 27.0-33.0 [facility] Comment on above: Performed By: #### M REY SULLIVAN, CBC, ANEU, ADIFF, CMP, GFR, LIP #### [address] [address] MCHC 32.9 G/dL Normal 32.0-36.0 [facility] Comment on above: Performed By: #### M REY SULLIVAN, CBC, ANEU, ADIFF, CMP, GFR, LIP #### [address] [address] MCV (RBC) [Entitic vol] 91.5 fL Normal 81.0-100.0 [facility] Comment on above: Performed By: #### M REY SULLIVAN, CBC, ANEU, ADIFF, CMP, GFR, LIP #### [address] [address] Platelet 174 10 3/mcL Normal 150-450 [facility] Comment on above: Performed By: #### M REY SULLIVAN, CBC, ANEU, ADIFF, CMP, GFR, LIP #### [address] [address] Platelet mean volume (Bld) [Entitic vol] 9.8 fL Normal 6.4-10.5 [facility] Comment on above: Performed By: #### M REY SULLIVAN, CBC, ANEU, ADIFF, CMP, GFR, LIP #### [place] [address] [place] [id number] RBC 3.81 10 6/mcL Low 4.50-6.00 [facility] Comment on above: Performed By: #### M REY SULLIVAN, CBC, ANEU, ADIFF, CMP, GFR, LIP #### [place] [address] [place] [address] WBC 7.3 10 3/mcL Normal 4.5-10.8 [facility] Comment on above: Performed By: #### M REY SULLIVAN, CBC, ANEU, ADIFF, CMP, GFR, LIP #### [address] [address] LABORATORYOrdered By: SYSTEM SYSTEM on 02-24-2024 Anisocytosis Ql (Bld) 1+ *NA* (02/24/24 11:13 PM) Invalid Interpretation Code AO Workflow SS Basophil %, Manual 0.0 % Normal 0.0 - 2.5 % AO Wo rkflow SS Basophils (Bld) [#/Vol] 0.0 103/mcL Normal 0.0 - 0.2 10^3/mcL AO Workflow SS Calcium [Mass/Vol] 8.8 mg/dL Normal 8.4 - 10. 2 mg/dL AO ADM SS Chloride [Moles/Vol] 97 mmol/L Low 98 - 10 7 mmol/L AO ADM SS CO2 [Moles/Vol] 28 mmol/L Normal 23 - 31 mmol/L AO ADM SS Creatinine [Mass/Vol] 6.06 mg/dL High 0.70 - 1.30 mg/dL AO ADM SS Comment on above: Interpretive Data: T esting performed on Siemens Dimension EXL analyzer using a modified kinetic Samina technique. Electrolyte Balance 11.0 mEq/L Normal 4.0 - 15 .0 mEq/L AO ADM SS Eosinophil %, Manual 0.0 % Normal 0.0 - 7.0 % AO Workflow SS Eosinophils (Bld) [#/Vol] 0.0 103/mcL Normal 0.0 - 0.7 10^3/mcL AO Workflow SS Erythrocyte distribution width (RBC) [Ratio] 14.1 % Normal 11.5 - 15.5 % AO Workflow SS GFR/1.73 sq M.predicted among blacks MDRD (S/P/Bld) [Vol rate/Area] 11 ml/min/1.73sqm Invalid Interpretation Code AO Chemistry S Comment on above: Interpretive Data: GFR Population mean for , Non- Americans Ages 20-29 = 116 mL/min/1.73 sq.m. Ages 30-39 = 107 mL/min/1.73 sq.m. Ages 40-49 = 99 mL/min/1.73 sq.m. Ages 50-59 = 93 mL/min/1.73 sq.m. Ages 60-69 = 85 mL/min/1.73 sq.m. Ages 70+ = 75 mL/min/1.73 sq.m. Chronic Kidney Disease: Less than 60 mL/min/1.73 square meters End Stage Renal Disease: Less than 15 mL/min/1.73 square meters GFR/1.73 sq M.predicted among non-blacks MDRD (S/P/Bld) [Vol rate/Area] 9 ml/min/1.73sqm Invalid Interpretation Code AO Chemistry S Comment on above: Interpretive Data: GFR Population mean for , Non- Americans Ages 20-29 = 116 mL/min/1.73 sq.m. Ages 30-39 = 107 mL/min/1.73 sq.m. Ages 40-49 = 99 mL/min/1.73 sq.m. Ages 50-59 = 93 mL/min/1.73 sq.m. Ages 60-69 = 85 mL/min/1.73 sq.m. Ages 70+ = 75 mL/min/1.73 sq.m. Chronic Kidney Disease: Less than 60 mL/min/1.73 square meters End Stage Renal Disease: Less than 15 mL/min/1.73 square meters Glucose [Mass/Vol] 111 mg/dL Normal 80 - 115 mg/dL AO ADM SS Hematocrit (Bld) [Volume fraction] 34.8 % Low 40.0 - 52.0 % AO Workflow SS Hemoglobin (Bld) [Mass/Vol] 11.5 G/dL Low 13.0 - 17.5 G/dL AO Workflow SS Hypochromia Ql (Bld) 1+ *NA* (02/24/24 11:13 PM) Invalid Interpretation Code AO Workflow SS Lymphocytes (Bld) [#/Vol] 1.5 103/mcL Normal 0.9 - 4.3 10^3/mcL AO Workflow SS Lymphocytes/100 WBC (Bld) 20.0 % Normal 20.0 - 40.0 % AO Workflow SS MCH (RBC) [Entitic mass] 30.1 pg Normal 27.0 - 33.0 pg AO Workflow SS MCHC 32.9 G/dL Normal 32.0 - 36.0 G/dL AO Workflow SS MCV (RBC) [Entitic vol] 91.5 fL Normal 81.0 - 100.0 fL AO Workflow SS Monocyte distribution width Auto (Bld) [Entitic vol] 16.21 1 Normal 0.00 - 20.00 AO Workflow SS Comment on above: Result Comment: For ED adult patients suspected of sepsis, MDW<=20.0 does not rule out sepsis or risk of sepsis Monocytes (Bld) [#/Vol] 0.7 103/mcL Normal 0.1 - 1.4 10^3/mcL AO Workflow SS Monocytes/100 WBC (Bld) 10.0 % Normal 2.0 - 13.0 % AO Workflow SS Neutrophils (Bld) [#/Vol] 5.1 103/mcL Normal 2.3 - 8.1 10^3/mcL AO Workflow SS Neutrophils/100 WBC (Bld) 70.0 % Normal 50.0 - 75.0 % AO Workflow SS Nucleated RBC 0.0 /100 WBC Invalid Interpretation Code AO Workflow SS Platelet mean volume (Bld) [Entitic vol] 9.8 fL Normal 6.4 - 10.5 fL AO Workflow SS Platelets (Bld) [#/Vol] 174 103/mcL Normal 150 - 450 10^3/mcL AO Workflow SS Platelets LM Ql (Bld) Normal *NA* (02/24/24 11:13 PM) Invalid Interpretation Code AO Workflow SS Potassium [Moles/Vol] 5.0 mmol/L Normal 3.5 - 5.1 mmol/L AO ADM SS RBC (Bld) [#/Vol] 3.81 106/mcL Low 4.50 - 6.0 0 10^6/mcL AO Workflow SS Sodium [Moles/Vol] 136 mmol/L Normal 136 - 145 mmol/L AO ADM SS Troponin I.cardiac DL <= 0.01 ng/mL [Mass/Vol] 26 ng/L Normal 0 - 76 ng/L AO ADM SS Comment on above: Interpretive Data: H igh Sensitive Troponin I Reference Ranges: Female: 0-51 ng/L Male: 0-76 ng/L Testing performed on Dimension EXL using a homogeneous sandwich chemiluminescent immunoassay based on [employer] technology. Urea nitrogen [Mass/Vol] 79 mg/dL High 7 - 18 mg/dL AO ADM SS Urea nitrogen/Creatinine [Mass ratio] 13 ratio Normal 7 - 27 ratio AO ADM SS WBC (Bld) [#/Vol] 7.3 103/mcL Normal 4.5 - 10.8 10^3/mcL AO Workflow [facility] High Sensitivity Troponin I 26 ng/L Normal 0-76 [facility] Comment on above: Result Comment: High Sensitive Troponin I Reference Ranges: Female: 0-51 ng/L Male: 0-76 ng/L Testing performed on Dimension EXL using a homogeneous sandwich chemiluminescent immunoassay based on [employer] technology. Performed By: #### M MD LAURIEW, CBC, ANEU, ADIFF, CMP, GFR, LIP #### [place] [address] [place], [place] [address] XR CHEST 1 VIEWon 02-24-2024 XR CHEST 1 VIEW ORIGINAL EXAMINATION: ONE XRAY VIEW OF THE CHEST 02/24/2024 11:30 pm COMPARISON: AP chest radiograph 02/05/2024. HISTORY: ORDERING SYSTEM PROVIDED HISTORY: Reason for Exam: SOB, Hx Dialysis FINDINGS: The lungs are without acute focal process. There is no effusion or pneumothorax. The cardiomediastinal silhouette enlarged is without acute process. The osseous structures are without acute process. Stable appearance of a left-sided single lead pacer/defibrillator. Unchanged sternotomy wires. IMPRESSION: No acute process. Interpreted by: Isacc Lofton Preliminary Report By: Isacc Lofton Electronically signed By Isacc Lofton Dictated Date: 02/24/2024 11:35:49 PM Prelim Date: 02/24/2024 11:36:51 PM Sign Date: 02/24/2024 11:36:51 PM Ordering Provider: GINA Ness [facility] XR CHEST 1 VIEWon 02-06-2024 XR CHEST 1 VIEW ORIGINAL EXAMINATION: ONE XRAY VIEW OF THE CHEST02/05/2024 8:43 pm COMPARISON: None available at time of dictation. HISTORY: ORDERING SYSTEM PROVIDED HISTORY: Reason for Exam: fever, cough FINDINGS: LINES/TUBES: Left-sided AICD with a lead overlying the heart. Cardiomegaly. Mildly enlarged cardiomediastinal silhouette may be related to positioning. Prominent interstitial markings and mild pulmonary vascular congestion. No pneumothorax or large pleural effusion. No acute osseous abnormalities. Sternotomy wires. IMPRESSION: Cardiomegaly with pulmonary vascular congestion and prominent interstitial markings may represent developing pulmonary edema in the appropriate clinical setting. Underlying atypical infectious/inflammatory process is not excluded. I have personally reviewed the images of this examination and agree with the resident's findings and interpretation. Interpreted by: Michael Ponce MD Preliminary Report By: Morteza Dawson Electronically signed By Michael Ponce MD Dictated Date: 02/05/2024 9:19:57 PM Prelim Date: 02/05/2024 9:22:12 PM Sign Date: 02/06/2024 12:13:12 AM Ordering Provider: ARVIND SADLER [facility] .Auto Diffon 02-05-2024 Basophil, Absolute 0.1 10 3/mcL Normal 0.0-0.2 [facility] Comment on above: Performed By: #### M REY SULLIVAN, CBC, ANEU, ADIFF, CMP, GFR, LIP #### [place] [address] [place], [place] [address] Basophils/100 WBC (Bld) 0.8 % Normal 0.0-2.5 [facility] Comment on above: Performed By: #### M REY SULLIVAN, CBC, ANEU, ADIFF, CMP, GFR, LIP #### [place] [address] [place], [place] [address] Eosinophil, Absolute 0.0 10 3/mcL Normal 0.0-0.7 [facility] Comment on above: Performed By: #### M REY SULLIVAN, CBC, ANEU, ADIFF, CMP, GFR, LIP #### [address] [address] Eosinophils/100 WBC (Bld) 0.3 % Normal 0.0-7.0 [facility] Comment on above: Performed By: #### M REY SULLIVAN, CBC, ANEU, ADIFF, CMP, GFR, LIP #### [address] [address] Lymphocyte, Absolute 1.1 10 3/mcL Normal 0.9-4.3 [facility] Comment on above: Performed By: #### M REY SULLIVAN, CBC, ANEU, ADIFF, CMP, GFR, LIP #### [address] [address] Lymphocytes/100 WBC (Bld) 15.4 % Low 20.0-40.0 [facility] Comment on above: Performed By: #### M REY SULLIVAN, CBC, ANEU, ADIFF, CMP, GFR, LIP #### [address] [address] Monocyte, Absolute 1.2 10 3/mcL Normal 0.1-1.4 [facility] Comment on above: Performed By: #### M REY SULLIVAN, CBC, ANEU, ADIFF, CMP, GFR, LIP #### [address] [address] Monocytes/100 WBC (Bld) 17.1 % High 2.0-13.0 [facility] Comment on above: Performed By: #### M REY SULLIVAN, CBC, ANEU, ADIFF, CMP, GFR, LIP #### [address] [address] Neutrophils/100 WBC (Bld) 66.4 % Normal 50.0-75.0 [facility] Comment on above: Performed By: #### M REY SULLIVAN, CBC, ANEU, ADIFF, CMP, GFR, LIP #### [address] [address] .GFRon 02-05-2024 GFR 20 ml/min/1.73sqm [facility] Comment on above: Result Comment: GFR Population mean for , Non- Americans Ages 20-29 = 116 mL/min/1.73 sq.m. Ages 30-39 = 107 mL/min/1.73 sq.m. Ages 40-49 = 99 mL/min/1.73 sq.m. Ages 50-59 = 93 mL/min/1.73 sq.m. Ages 60-69 = 85 mL/min/1.73 sq.m. Ages 70+ = 75 mL/min/1.73 sq.m. Chronic Kidney Disease: Less than 60 mL/min/1.73 square meters End Stage Renal Disease: Less than 15 mL/min/1.73 square meters Performed By: #### M LAURIE, REY, CBC, ANEU, ADIFF, CMP, GFR, LIP #### [address] [address] GFR Non- 16 ml/min/1.73sqm [facility] Comment on above: Result Comment: GFR Population mean for , Non- Americans Ages 20-29 = 116 mL/min/1.73 sq.m. Ages 30-39 = 107 mL/min/1.73 sq.m. Ages 40-49 = 99 mL/min/1.73 sq.m. Ages 50-59 = 93 mL/min/1.73 sq.m. Ages 60-69 = 85 mL/min/1.73 sq.m. Ages 70+ = 75 mL/min/1.73 sq.m. Chronic Kidney Disease: Less than 60 mL/min/1.73 square meters End Stage Renal Disease: Less than 15 mL/min/1.73 square meters Performed By: #### M LAURIE, REY, CBC, ANEU, ADIFF, CMP, GFR, LIP #### [address] [address] .MDWon 02-05-2024 Monocyte Distribution Width 22.01 High 0.00-20.00 [facility] Comment on above: Result Comment: For adults in ED, MDW>20.0 may be associated with a higher risk of sepsis during the first 12hrs of hospital admission Performed By: #### M REY SULLIVAN, CBC, ANEU, ADIFF, CMP, GFR, LIP #### [place] [address] .Morphon 02-05-2024 Platelet Estimate Normal Normal [facility] Comment on above: Performed By: #### M REY SULLIVAN, CBC, ANEU, ADIFF, CMP, GFR, LIP #### [place] [address] .NEUABSon 02-05-2024 Neutrophil, Absolute 4.6 10 3/mcL Normal 2.3-8.1 [facility] Comment on above: Performed By: #### M REY SULLIVAN, CBC, ANEU, ADIFF, CMP, GFR, LIP #### [place] [address] .Urinalysis Microscopic (AO) on 02-05-2024 UA Amorphus Trace Normal [facility] Comment on above: Performed By: #### U AMICAO, UA #### [place] [address] UA Bacteria Trace Abnormal [facility] Comment on above: Performed By: #### U AMICAO, UA #### [place] [address] UA RBC 0-5 Abnormal None Seen [facility] Comment on above: Performed By: #### U AMICAO, UA #### [place] [address] UA Squam Epithelial 0-[address] [facility] Comment on above: Performed By: #### U AMICAO, UA #### [place] [address] UA WBC 0-5 Abnormal None Seen [facility] Comment on above: Performed By: #### U AMICAO, UA #### [place] [address] CBCon 02-05-2024 Erythrocyte distribution width (RBC) [Ratio] 13.9 % Normal 11.5-15.5 [facility] Comment on above: Performed By: #### M REY SULILVAN, CBC, ANEU, ADIFF, CMP, GFR, LIP #### [place] [address] Hematocrit (Bld) [Volume fraction] 39.8 % Low 40.0-52.0 [facility] Comment on above: Performed By: #### M REY SULLIVAN, CBC, ANEU, ADIFF, CMP, GFR, LIP #### [place] [address] Hgb 13.1 G/dL Normal 13.0-17.5 [facility] Comment on above: Performed By: #### M REY SULLIVAN, CBC, ANEU, ADIFF, CMP, GFR, LIP #### [place] [address] MCH (RBC) [Entitic mass] 29.5 pg Normal 27.0-33.0 [facility] Comment on above: Performed By: #### M REY SULLIVAN, CBC, ANEU, ADIFF, CMP, GFR, LIP #### [place] [address] MCHC 32.8 G/dL Normal 32.0-36.0 [facility] Comment on above: Performed By: #### M REY SULLIVAN, CBC, ANEU, ADIFF, CMP, GFR, LIP #### [place] [address] MCV (RBC) [Entitic vol] 89.8 fL Normal 81.0-100.0 [facility] Comment on above: Performed By: #### M REY SULLIVAN, CBC, ANEU, ADIFF, CMP, GFR, LIP #### [place] [address] Platelet 147 10 3/mcL Low 150-450 [facility] Comment on above: Performed By: #### M REY SULLIVAN, CBC, ANEU, ADIFF, CMP, GFR, LIP #### [address] [address] Platelet mean volume (Bld) [Entitic vol] 9.1 fL Normal 6.4-10.5 [facility] Comment on above: Performed By: #### M REY SULLIVAN, CBC, ANEU, ADIFF, CMP, GFR, LIP #### [place] [address] [place], [place] [address] RBC 4.43 10 6/mcL Low 4.50-6.00 [facility] Comment on above: Performed By: #### M REY SULLIVAN, CBC, ANEU, ADIFF, CMP, GFR, LIP #### [address] [address] WBC 6.9 10 3/mcL Normal 4.5-10.8 [facility] Comment on above: Performed By: #### M REY SULLIVAN, CBC, ANEU, ADIFF, CMP, GFR, LIP #### [address] [address] CMPon 02-05-2024 Glucose [Mass/Vol] 42 mg/dL Critically abnormal 80-115 [facility] Comment on above: Performed By: #### M REY SULLIVAN, CBC, ANEU, ADIFF, CMP, GFR, LIP #### [address] [address] Potassium [Moles/Vol] 3.7 mmol/L Normal 3.5-5.1 [facility] Comment on above: Performed By: #### M REY SULLIVAN, CBC, ANEU, ADIFF, CMP, GFR, LIP #### [address] [address] Albumin Level 3.7 G/dL Normal 3.4-4.8 [facility] Comment on above: Performed By: #### M REY SULLIVAN, CBC, ANEU, ADIFF, CMP, GFR, LIP #### [address] [address] Albumin/Globulin [Mass ratio] 1.0 {ratio} Low 1.1-2.5 [facility] Comment on above: Performed By: #### M REY SULLIVAN, CBC, ANEU, ADIFF, CMP, GFR, LIP #### [place] [address] ALP [Catalytic activity/Vol] 50 U/L Normal 40-135 [facility] Comment on above: Performed By: #### M REY SULLIVAN, CBC, ANEU, ADIFF, CMP, GFR, LIP #### [place] [address] ALT [Catalytic activity/Vol] 34 U/L Normal 16-63 [facility] Comment on above: Performed By: #### M REY SULLIVAN, CBC, ANEU, ADIFF, CMP, GFR, LIP #### [place] [address] AST [Catalytic activity/Vol] 38 U/L Normal 10-40 [facility] Comment on above: Performed By: #### M REY SULLIVAN, CBC, ANEU, ADIFF, CMP, GFR, LIP #### [place] [address] Bili Total 0.4 mg/dL Normal 0.2-1.0 [facility] Comment on above: Result Comment: Use of this assay is not recommended for patients undergoing treatment with eltrombopag due to the potential for falsely elevated results. Performed By: #### M REY SULLIVAN, CBC, ANEU, ADIFF, CMP, GFR, LIP #### [place] [address] BUN/Creatinine Ratio 8 ratio Normal 7-27 [facility] Comment on above: Performed By: #### M REY SULLIVAN, CBC, ANEU, ADIFF, CMP, GFR, LIP #### [place] [address] Calcium [Mass/Vol] 8.9 mg/dL Normal 8.4-10.2 [facility] Comment on above: Performed By: #### M REY SULLIVAN, CBC, ANEU, ADIFF, CMP, GFR, LIP #### [address] [address] Chloride [Moles/Vol] 97 mmol/L Low 98-107 [facility] Comment on above: Performed By: #### M REY SULLIVAN, CBC, ANEU, ADIFF, CMP, GFR, LIP #### [address] [address] CO2 [Moles/Vol] 30 mmol/L Normal 23-31 [facility] Comment on above: Performed By: #### M REY SULLIVAN, CBC, ANEU, ADIFF, CMP, GFR, LIP #### [address] [address] Creatinine [Mass/Vol] 3.75 mg/dL High 0.70-1.30 [facility] Comment on above: Result Comment: Test ing performed on Siemens Dimension EXL analyzer using a modified kinetic Sam[employer] technique. Performed By: #### M REY SULLIVAN, CBC, ANEU, ADIFF, CMP, GFR, LIP #### [address] [address] Electrolyte Balance 10.0 mEq/L Normal 4.0-15.0 [facility] Comment on above: Performed By: #### M REY SULLIVAN, CBC, ANEU, ADIFF, CMP, GFR, LIP #### [address] [address] Globulin 3.8 G/dL Normal [facility] Comment on above: Performed By: #### M REY SULLIVAN, CBC, ANEU, ADIFF, CMP, GFR, LIP #### [address] [address] Sodium [Moles/Vol] 137 mmol/L Normal 136-145 [facility] Comment on above: Performed By: #### M REY SULLIVAN, CBC, ANEU, ADIFF, CMP, GFR, LIP #### [address] [address] Total Protein 7.5 G/dL Normal 6.4-8.2 [facility] Comment on above: Performed By: #### M REY SULLIVAN, CBC, ANEU, ADIFF, CMP, GFR, LIP #### [place] [address] Urea nitrogen [Mass/Vol] 31 mg/dL High 7-18 [facility] Comment on above: Performed By: #### M MD LAURIEW, CBC, ANEU, ADIFF, CMP, GFR, LIP #### [place] [address] CVFLURVon 02-05-2024 FLU A PCR Negative Normal Negative [facility] Comment on above: Performed By: #### M REY SULLIVAN, CBC, ANEU, ADIFF, CMP, GFR, LIP #### [place] [address] FLU B PCR Negative Normal Negative [facility] Comment on above: Performed By: #### M REY SULLIVAN, CBC, ANEU, ADIFF, CMP, GFR, LIP #### [place] [address] RSV PCR Negative Normal Negative [facility] Comment on above: Performed By: #### M REY SULLIVAN, CBC, ANEU, ADIFF, CMP, GFR, LIP #### [place] [address] SARS-CoV-2 (COVID-19) RNA MUSA+probe Ql (Unsp spec) Positive Abnormal Negative [facility] Comment on above: Result Comment: Resu lts from the Xpert Xpress CoV-2/Flu/RSV plus test should be correlated with the clinical history, epidemiological data, and other data available to the clinical evaluating the patient. Performance of the Xpert Xpress CoV-2/Flu/RSV plus test has only been established in nasopharyngeal swab specimen. Erroneous test results might occur from improper specimen collection, failure to follow the recommended sample collection, handling and storage procedures, technical error, or sample mix-up. False negative results may occur if a virus is present at a level below the analytical limit of detection. Viral nucleic acid may persist in vivo, independent of virus viability. Detection of analyte target(s) does not imply that the corresponding virus(es) are infectious or are the causative agents for clinical symptoms. Recent patient exposure to FluMist or other live attenuated influenza vaccines may cause inaccurate positive results. Performed By: #### M MD LAURIEW, CBC, ANEU, ADIFF, CMP, GFR, LIP #### [facility] [address] [place], [place] [address] LABORATORYOrdered By: Miriam Mcclellan on 02-05-2024 Glucose [Mass/Vol] 129 mg/dL High 82 - 115 mg/dL [facility] Work Phone: LABORATORYOrdered By: Sarina Gotti on 02-05-2024 Appearance (U) Clear (02/05/24 8:11 PM) Normal Clear AO Auto Urine SS Bacteria LM.HPF (Urine sed) [#/Area] Trace /HPF Invalid Interpretation Code AO Auto Urine SS Bilirubin Ql (U) Negative (02/05/24 8:11 PM) Normal Negative AO Auto Urine SS Color (U) Yellow (02/05/24 8:11 PM) Normal AO Auto Urine SS Crystals.amorphous LM.HPF (Urine sed) [#/Area] Trace /HPF Normal AO Auto Urine SS Glucose Test strip (U) [Mass/Vol] 500 mg/dL Invalid Interpretation Code Negative AO Auto Urine SS Hemoglobin Auto test strip (U) [Mass/Vol] Small *ABN* (02/05/24 8:11 PM) Invalid Interpretation Code Negative AO Auto Urine SS Ketones Ql (U) Negative Normal Negative AO Auto Urine SS UA Leuk Est Negative (02/05/24 8:11 PM) Normal Negative AO Auto Urine SS UA Nitrite Negative (02/05/24 8:11 PM) Normal Negative AO Auto Urine SS UA pH 7.0 (02/05/24 8:11 PM) Normal 5.0 - 8.0 AO Auto Urine SS UA Protein >=300 mg/dL Invalid Interpretation Code Negative AO Auto Urine SS UA RBC 0-5 /HPF Invalid Interpretation Code None Seen AO Auto Urine SS UA Spec Grav 1.020 (02/05/24 8:11 PM) Normal 1.015-1.025 AO Auto Urine SS UA Specimen Type Clean Catch (02/05/24 8:11 PM) Normal AO Auto Urine SS UA Squam Epithelial 0-5 /HPF Invalid Interpretation Code None Seen AO Auto Urine SS UA Urobilinogen 0.2 E.U./dL Normal 0.2-1.0 AO Auto Urine SS WBC LM.HPF (Urine sed) [#/Area] 0-5 /HPF Invalid Interpretation Code None Seen AO Auto Urine SS LABORATORYOrdered By: SYSTEM SYSTEM on 02-05-2024 Albumin BCP dye [Mass/Vol] 3.7 G/dL Normal 3.4 - 4.8 G/dL AO ADM SS Albumin/Globulin [Mass ratio] 1.0 {ratio} Low 1.1 - 2.5 ratio AO ADM SS ALP [Catalytic activity/Vol] 50 U/L Normal 40 - 135 U/L AO ADM SS ALT With P-5'-P [Catalytic activity/Vol] 34 U/L Normal 16 - 63 U/L AO ADM SS AST With P-5'-P [Catalytic activity/Vol] 38 U/L Normal 10 - 40 U/L AO ADM SS Basophils (Bld) [#/Vol] 0.1 103/mcL Normal 0.0 - 0.2 10^3/mcL AO Workflow SS Basophils/100 WBC (Bld) 0.8 % Normal 0.0 - 2.5 % AO Workflow SS Bilirubin [Mass/Vol] 0.4 mg/dL Normal 0.2 - 1 .0 mg/dL AO ADM SS Comment on above: Interpretive Data: U se of this assay is not recommended for patients undergoing treatment with eltrombopag due to the potential for falsely elevated results. Calcium [Mass/Vol] 8.9 mg/dL Normal 8.4 - 10. 2 mg/dL AO ADM SS Chloride [Moles/Vol] 97 mmol/L Low 98 - 10 7 mmol/L AO ADM SS CO2 [Moles/Vol] 30 mmol/L Normal 23 - 31 mmol/L AO ADM SS Creatinine [Mass/Vol] 3.75 mg/dL High 0.70 - 1.30 mg/dL AO ADM SS Comment on above: Interpretive Data: T esting performed on Siemens Dimension EXL analyzer using a modified kinetic Samina technique. Electrolyte Balance 10.0 mEq/L Normal 4.0 - 15 .0 mEq/L AO ADM SS Eosinophil, Absolute 0.0 103/mcL Normal 0.0 - 0 .7 10^3/mcL AO Workflow SS Eosinophils/100 WBC (Bld) 0.3 % Normal 0.0 - 7.0 % AO Workflow SS Erythrocyte distribution width (RBC) [Ratio] 13.9 % Normal 11.5 - 15.5 % AO Workflow SS GFR/1.73 sq M.predicted among blacks MDRD (S/P/Bld) [Vol rate/Area] 20 ml/min/1.73sqm Invalid Interpretation Code AO Chemistry S Comment on above: Interpretive Data: GFR Population mean for , Non- Americans Ages 20-29 = 116 mL/min/1.73 sq.m. Ages 30-39 = 107 mL/min/1.73 sq.m. Ages 40-49 = 99 mL/min/1.73 sq.m. Ages 50-59 = 93 mL/min/1.73 sq.m. Ages 60-69 = 85 mL/min/1.73 sq.m. Ages 70+ = 75 mL/min/1.73 sq.m. Chronic Kidney Disease: Less than 60 mL/min/1.73 square meters End Stage Renal Disease: Less than 15 mL/min/1.73 square meters GFR/1.73 sq M.predicted among non-blacks MDRD (S/P/Bld) [Vol rate/Area] 16 ml/min/1.73sqm Invalid Interpretation Code AO Chemistry S Comment on above: Interpretive Data: GFR Population mean for , Non- Americans Ages 20-29 = 116 mL/min/1.73 sq.m. Ages 30-39 = 107 mL/min/1.73 sq.m. Ages 40-49 = 99 mL/min/1.73 sq.m. Ages 50-59 = 93 mL/min/1.73 sq.m. Ages 60-69 = 85 mL/min/1.73 sq.m. Ages 70+ = 75 mL/min/1.73 sq.m. Chronic Kidney Disease: Less than 60 mL/min/1.73 square meters End Stage Renal Disease: Less than 15 mL/min/1.73 square meters Globulin 3.8 G/dL Invalid Interpretation Code AO ADM SS Glucose [Mass/Vol] 42 mg/dL Invalid Interpretation Code 80 - 115 mg/dL AO ADM SS Hematocrit (Bld) [Volume fraction] 39.8 % Low 40.0 - 52.0 % AO Workflow SS Hemoglobin (Bld) [Mass/Vol] 13.1 G/dL Normal 13.0 - 17.5 G/dL AO Workflow SS Lipase [Catalytic activity/Vol] 264 U/L High 16 - 77 U/L AO ADM SS Lymphocytes (Bld) [#/Vol] 1.1 103/mcL Normal 0.9 - 4.3 10^3/mcL AO Workflow SS Lymphocytes/100 WBC (Bld) 15.4 % Low 20.0 - 40.0 % AO Workflow SS MCH (RBC) [Entitic mass] 29.5 pg Normal 27.0 - 33.0 pg AO Workflow SS MCHC 32.8 G/dL Normal 32.0 - 36.0 G/dL AO Workflow SS MCV (RBC) [Entitic vol] 89.8 fL Normal 81.0 - 100.0 fL AO Workflow SS Monocyte distribution width Auto (Bld) [Entitic vol] 22.01 1 High 0.00 - 20.00 AO Workflow SS Comment on above: Result Comment: For adults in ED, MDW>20.0 may be associated with a higher risk of sepsis during the first 12hrs of hospital admission Monocytes (Bld) [#/Vol] 1.2 103/mcL Normal 0.1 - 1.4 10^3/mcL AO Workflow SS Monocytes/100 WBC (Bld) 17.1 % High 2.0 - 13.0 % AO Workflow SS Neutrophils (Bld) [#/Vol] 4.6 103/mcL Normal 2.3 - 8.1 10^3/mcL AO Workflow SS Neutrophils/100 WBC (Bld) 66.4 % Normal 50.0 - 75.0 % AO Workflow SS Platelet mean volume (Bld) [Entitic vol] 9.1 fL Normal 6.4 - 10.5 fL AO Workflow SS Platelets (Bld) [#/Vol] 147 103/mcL Low 150 - 450 10^3/mcL AO Workflow SS Potassium [Moles/Vol] 3.7 mmol/L Normal 3.5 - 5.1 mmol/L AO ADM SS Protein [Mass/Vol] 7.5 G/dL Normal 6.4 - 8.2 G/dL AO ADM SS RBC (Bld) [#/Vol] 4.43 106/mcL Low 4.50 - 6.0 0 10^6/mcL AO Workflow SS Sodium [Moles/Vol] 137 mmol/L Normal 136 - 145 mmol/L AO ADM SS Urea nitrogen [Mass/Vol] 31 mg/dL High 7 - 18 mg/dL AO ADM SS Urea nitrogen/Creatinine [Mass ratio] 8 ratio Normal 7 - 27 ratio AO ADM SS WBC (Bld) [#/Vol] 6.9 103/mcL Normal 4.5 - 10.8 10^3/mcL AO Workflow SS LABORATORYOrdered By: Franco Pedraza on 02-05-2024 FLUAV RNA MUSA+probe Ql (Resp) Negative (02/05/24 7:49 PM) Normal Negative AO Auto Urine SS FLUBV RNA MUSA+probe Ql (Resp) Negative (02/05/24 7:49 PM) Normal Negative AO Auto Urine SS Platelets LM Ql (Bld) Normal (02/05/24 7:49 PM) Normal AO Hematology S RSV RNA MUSA+probe Ql (Resp) Negative (02/05/24 7:49 PM) Normal Negative AO Auto Urine SS SARS-CoV-2 (COVID-19) RNA MUSA+probe Ql (Resp) Positive 4 *ABN* (02/05/24 7:49 PM) Invalid Interpretation Code Negative AO Auto Urine SS Comment on above: Interpretive Data: R esults from the Xpert Xpress CoV-2/Flu/RSV plus test should be correlated with the clinical history, epidemiological data, and other data available to the clinical evaluating the patient. Performance of the Xpert Xpress CoV-2/Flu/RSV plus test has only been established in nasopharyngeal swab specimen. Erroneous test results might occur from improper specimen collection, failure to follow the recommended sample collection, handling and storage procedures, technical error, or sample mix-up. False negative results may occur if a virus is present at a level below the analytical limit of detection. Viral nucleic acid may persist in vivo, independent of virus viability. Detection of analyte target(s) does not imply that the corresponding virus(es) are infectious or are the causative agents for clinical symptoms. Recent patient exposure to FluMist or other live attenuated influenza vaccines may cause inaccurate positive results. LIPon 02-05-2024 Lipase Level 264 U/L High 16-77 [facility] Comment on above: Performed By: #### M ORPH, MDW, CBC, ANEU, ADIFF, CMP, GFR, LIP #### [facility] [address] [place], [place] [address] UAon 02-05-2024 Color (U) Yellow Normal [facility] Comment on above: Performed By: #### U AMICAO, UA #### [place] [address] Glucose (U) [Mass/Vol] 500 mg/dL Abnormal Negative [facility] Comment on above: Performed By: #### U AMICAO, UA #### [place] [address] Ketones Ql (U) Negative Normal Negative [facility] Comment on above: Performed By: #### U AMICAO, UA #### [place] [address] UA Appear Clear Normal Clear [facility] Comment on above: Performed By: #### U AMICAO, UA #### [place] [address] UA Blood Small Abnormal Negative [facility] Comment on above: Performed By: #### U AMICAO, UA #### [place] [address] UA Leuk Est Negative Normal Negative [facility] Comment on above: Performed By: #### U AMICAO, UA #### [place] [address] UA Nitrite Negative Normal Negative [facility] Comment on above: Performed By: #### U AMICAO, UA #### [place] [address] UA pH 7.0 Normal 5.0 - 8.0 [facility] Comment on above: Performed By: #### U AMICAO, UA #### [place] [address] UA Protein >=300 Abnormal Negative [facility] Comment on above: Performed By: #### U AMICAO, UA #### [place] [address] UA Spec Grav 1.020 Normal 1.015-1.025 [facility] Comment on above: Performed By: #### U AMICAO, UA #### [place] [address] [place], [place] [address] UA Specimen Type Clean Catch Normal [facility] Comment on above: Performed By: #### U AMICAO, UA #### [facility] [address] [place], [place] [address] UA Urobilinogen 0.2 E.U./dL Normal 0.2-1.0 [facility] Comment on above: Performed By: #### U AMICAO, UA #### [place] [address] [place], [place] [address] Urobilinogen (U) [Mass/Vol] Negative Normal Negative [facility] Comment on above: Performed By: #### U AMICAO, UA #### [address] [address] [address] TRANSFER OF OUTSIDE FILMS on 02-04-2024 CT TRANSFER OF OUTSIDE FILMS Outside images for comparison or treatment purposes, not interpreted by Radiologists. Normal [facility] Study Interpretation of outs jamila studyon 02-04-2024 Outside images for comparison or treatment purposes, not interpreted by Radiologists. IMAGING .Auto Diffon 12-13-2023 Basophil, Absolute 0.1 10 3/mcL Normal 0.0-0.2 [facility] ([place]) Comment on above: Performed By: #### A DIFF, ANEU, CBC, A1C #### [address] [address] Basophils/100 WBC (Bld) 0.8 % Normal 0.0-2.5 [facility] ([place]) Comment on above: Performed By: #### A DIFF, ANEU, CBC, A1C #### [address] [address] Eosinophil, Absolute 0.2 10 3/mcL Normal 0.0-0.4 [facility] ([place]) Comment on above: Performed By: #### A DIFF, ANEU, CBC, A1C #### [address] [address] Eosinophils/100 WBC (Bld) 3.0 % Normal 0.0-7.0 [facility] ([place]) Comment on above: Performed By: #### A DIFF, ANEU, CBC, A1C #### [address] [address] Lymphocyte, Absolute 1.8 10 3/mcL Normal 0.8-3.9 [facility] ([place]) Comment on above: Performed By: #### A DIFF, ANEU, CBC, A1C #### [address] [address] Lymphocytes/100 WBC (Bld) 22.7 % Normal 10.0-50.0 [facility] ([place]) Comment on above: Performed By: #### A DIFF, ANEU, CBC, A1C #### [address] [address] Monocyte, Absolute 0.7 10 3/mcL Normal 0.2-1.0 [facility] ([place]) Comment on above: Performed By: #### A DIFF, ANEU, CBC, A1C #### [address] [address] Monocytes/100 WBC (Bld) 8.5 % Normal 1.7-13.0 [facility] ([place]) Comment on above: Performed By: #### A DIFF, ANEU, CBC, A1C #### [address] [address] Neutrophils/100 WBC (Bld) 65.0 % Normal 37.0-80.0 [facility] ([place]) Comment on above: Performed By: #### A DIFF, ANEU, CBC, A1C #### [address] [address] .GFRon 12-13-2023 GFR 14 ml/min/1.73sqm Normal [facility] ([place]) Comment on above: Result Comment: GFR Population mean for , Non- Americans Ages 20-29 = 116 mL/min/1.73 sq.m. Ages 30-39 = 107 mL/min/1.73 sq.m. Ages 40-49 = 99 mL/min/1.73 sq.m. Ages 50-59 = 93 mL/min/1.73 sq.m. Ages 60-69 = 85 mL/min/1.73 sq.m. Ages 70+ = 75 mL/min/1.73 sq.m. Chronic Kidney Disease: Less than 60 mL/min/1.73 square meters End Stage Renal Disease: Less than 15 mL/min/1.73 square meters Performed By: #### A DIFF, A1C, CBC, GFR, ANEU, CMP #### [address] [address] GFR Non- 12 ml/min/1.73sqm Normal [facility] ([place]) Comment on above: Result Comment: GFR Population mean for , Non- Americans Ages 20-29 = 116 mL/min/1.73 sq.m. Ages 30-39 = 107 mL/min/1.73 sq.m. Ages 40-49 = 99 mL/min/1.73 sq.m. Ages 50-59 = 93 mL/min/1.73 sq.m. Ages 60-69 = 85 mL/min/1.73 sq.m. Ages 70+ = 75 mL/min/1.73 sq.m. Chronic Kidney Disease: Less than 60 mL/min/1.73 square meters End Stage Renal Disease: Less than 15 mL/min/1.73 square meters Performed By: #### A DIFF, A1C, CBC, GFR, ANEU, CMP #### [address] [address] .NEUABSon 12-13-2023 Neutrophil, Absolute 5.2 10 3/mcL Normal 2.9-6.2 [facility] ([place]) Comment on above: Performed By: #### A DIFF, ANEU, CBC, A1C #### [address] [address] A1Con 12-13-2023 Glucose [Mass/Vol] 189 mg/dL Normal [facility] ([place]) Comment on above: Result Comment: Maryann mated Average Glucose calculated by equation ((28.7xA1C)-46.7) Estimated average glucose (eAG) is a calculated value from Hemoglobin A1C and is termite control service representative of the average blood glucose level in the last 2-3 month period. Normal range: less than 114 mg/dL Performed By: #### A DIFF, ANEU, CBC, A1C #### [address] [address] HbA1c (Bld) [Mass fraction] 8.2 % High 4.3-6.4 [facility] ([place] Comment on above: Performed By: #### A DIFF, ANEU, CBC, A1C #### [place] [id number] CBCon 12-13-2023 Erythrocyte distribution width (RBC) [Ratio] 14.6 % High 11.5-14.5 [facility] ([place] Comment on above: Performed By: #### A DIFF, ANEU, CBC, A1C #### [place] [address] Hematocrit (Bld) [Volume fraction] 36.5 % Low 42.0-52.0 [facility] ([place] Comment on above: Performed By: #### A DIFF, ANEU, CBC, A1C #### [place] [address] Hgb 12.0 G/dL Low 14.0-18.0 [facility] ([place] Comment on above: Performed By: #### A DIFF, ANEU, CBC, A1C #### [place] [id number] MCH (RBC) [Entitic mass] 28.9 pg Normal 27.0-31.2 [facility] ([place]) Comment on above: Performed By: #### A DIFF, ANEU, CBC, A1C #### [place] [address] MCHC 32.8 G/dL Normal 31.8-35.4 [facility] ([place] Comment on above: Performed By: #### A DIFF, ANEU, CBC, A1C #### [place] [id number] MCV (RBC) [Entitic vol] 88.0 fL Normal 80.0-94.0 [facility] ([place] Comment on above: Performed By: #### A DIFF, ANEU, CBC, A1C #### [address] [address] Platelet 183 10 3/mcL Normal 130-400 [facility] ([place] Comment on above: Performed By: #### A DIFF, ANEU, CBC, A1C #### [address] [address] Platelet mean volume (Bld) [Entitic vol] 9.2 fL Normal 7.4-10.4 [facility] ([place] Comment on above: Performed By: #### A DIFF, ANEU, CBC, A1C #### [address] [address] RBC 4.15 10 6/mcL Normal 4.04-6.13 [facility] ([place] Comment on above: Performed By: #### A DIFF, ANEU, CBC, A1C #### [address] [address] WBC 8.0 10 3/mcL Normal 4.6-10.8 [facility] ([place] Comment on above: Performed By: #### A DIFF, ANEU, CBC, A1C #### [address] [address] CMPon 12-13-2023 Albumin Level 3.4 G/dL Normal 3.4-4.8 [facility] ([place] Comment on above: Performed By: #### A DIFF, A1C, CBC, GFR, ANEU, CMP #### [address] [address] Albumin/Globulin [Mass ratio] 0.9 {ratio} Low 1.1-2.5 [facility] ([place]) Comment on above: Performed By: #### A DIFF, A1C, CBC, GFR, ANEU, CMP #### [address] [address] ALP [Catalytic activity/Vol] 59 U/L Normal 40-135 [facility] ([place] Comment on above: Performed By: #### A DIFF, A1C, CBC, GFR, ANEU, CMP #### [address] [address] ALT [Catalytic activity/Vol] 25 U/L Normal 16-63 [facility] ([place] Comment on above: Performed By: #### A DIFF, A1C, CBC, GFR, ANEU, CMP #### [address] [address] AST [Catalytic activity/Vol] 24 U/L Normal 10-40 [facility] ([place] Comment on above: Performed By: #### A DIFF, A1C, CBC, GFR, ANEU, CMP #### [address] [address] Bili Total 0.5 mg/dL Normal 0.2-1.0 [facility] ([place]) Comment on above: Result Comment: Use of this assay is not recommended for patients undergoing treatment with eltrombopag due to the potential for falsely elevated results. Performed By: #### A DIFF, A1C, CBC, GFR, ANEU, CMP #### [address] [address] BUN/Creatinine Ratio 8 ratio Normal 7-27 [facility] ([place]) Comment on above: Performed By: #### A DIFF, A1C, CBC, GFR, ANEU, CMP #### [address] [address] Calcium [Mass/Vol] 7.7 mg/dL Low 8.4-10.2 [facility] ([place]) Comment on above: Performed By: #### A DIFF, A1C, CBC, GFR, ANEU, CMP #### [address] [address] Chloride [Moles/Vol] 96 mmol/L Low 98-107 [facility] ([place]) Comment on above: Performed By: #### A DIFF, A1C, CBC, GFR, ANEU, CMP #### [address] [address] CO2 [Moles/Vol] 31 mmol/L Normal 23-31 [facility] ([place]) Comment on above: Performed By: #### A DIFF, A1C, CBC, GFR, ANEU, CMP #### [address] [address] Creatinine [Mass/Vol] 5.01 mg/dL High 0.70-1.30 [facility] ([place]) Comment on above: Performed By: #### A DIFF, A1C, CBC, GFR, ANEU, CMP #### [address] [address] Electrolyte Balance 9.0 mEq/L Normal 4.0-15.0 [facility] ([place]) Comment on above: Performed By: #### A DIFF, A1C, CBC, GFR, ANEU, CMP #### [address] [address] Globulin 3.8 G/dL Normal [facility] ([place] Comment on above: Performed By: #### A DIFF, A1C, CBC, GFR, ANEU, CMP #### [address] [address] Glucose [Mass/Vol] 215 mg/dL High 80-115 [facility] ([place]) Comment on above: Performed By: #### A DIFF, A1C, CBC, GFR, ANEU, CMP #### [address] [address] Potassium [Moles/Vol] 4.1 mmol/L Normal 3.5-5.1 [facility] ([place]) Comment on above: Performed By: #### A DIFF, A1C, CBC, GFR, ANEU, CMP #### [address] [address] Sodium [Moles/Vol] 136 mmol/L Normal 136-145 [facility] ([place]) Comment on above: Performed By: #### A DIFF, A1C, CBC, GFR, ANEU, CMP #### [address] [address] Total Protein 7.2 G/dL Normal 6.4-8.2 [facility] ([place] Comment on above: Performed By: #### A DIFF, A1C, CBC, GFR, ANEU, CMP #### [address] [address] Urea nitrogen [Mass/Vol] 40 mg/dL High 7-18 [facility] ([place] Comment on above: Performed By: #### A DIFF, A1C, CBC, GFR, ANEU, CMP #### [address] [address] LIPIDon 12-13-2023 Cholesterol [Mass/Vol] 158 mg/dL Normal 0-200 [facility] ([place]) Comment on above: Result Comment: Chol esterol Reference Interval: Less than 200 Desirable 200-239 Borderline high risk 240 and above High risk Performed By: #### A DIFF, A1C, CBC, GFR, ANEU, CMP #### [address] [address] Cholesterol in HDL [Mass/Vol] 38 mg/dL Low 40-60 [facility] ([place] Comment on above: Performed By: #### A DIFF, A1C, CBC, GFR, ANEU, CMP #### [place] [address] Cholesterol in LDL [Mass/Vol] 41 mg/dL Normal 0-130 [facility] ([place]) Comment on above: Performed By: #### A DIFF, A1C, CBC, GFR, ANEU, CMP #### [address] [address] Triglyceride [Mass/Vol] 397 mg/dL High 0-150 [facility] ([place]) Comment on above: Result Comment: Trig lyceride Reference Interval: Less than 150 Normal 150-199 Borderline high risk 200-499 High risk 500 or higher Very high risk Performed By: #### A DIFF, A1C, CBC, GFR, ANEU, CMP #### [address] [address] .Auto Diffon 06-12-2023 Basophil, Absolute 0.0 10 3/mcL Normal 0.0-0.2 [facility] ([place] Comment on above: Performed By: #### A DIFF, A1C, CBC, GFR, ANEU, CMP #### [address] [address] Basophils/100 WBC (Bld) 0.4 % Normal 0.0-2.5 [facility] ([place]) Comment on above: Performed By: #### A DIFF, A1C, CBC, GFR, ANEU, CMP #### [address] [address] Eosinophil, Absolute 0.2 10 3/mcL Normal 0.0-0.4 [facility] ([place]) Comment on above: Performed By: #### A DIFF, A1C, CBC, GFR, ANEU, CMP #### [address] [address] Eosinophils/100 WBC (Bld) 2.4 % Normal 0.0-7.0 [facility] ([place] Comment on above: Performed By: #### A DIFF, A1C, CBC, GFR, ANEU, CMP #### [address] [address] Lymphocyte, Absolute 1.8 10 3/mcL Normal 0.8-3.9 [facility] ([place]) Comment on above: Performed By: #### A DIFF, A1C, CBC, GFR, ANEU, CMP #### [address] [address] Lymphocytes/100 WBC (Bld) 21.7 % Normal 10.0-50.0 [facility] ([place] Comment on above: Performed By: #### A DIFF, A1C, CBC, GFR, ANEU, CMP #### [address] [address] Monocyte, Absolute 0.7 10 3/mcL Normal 0.2-1.0 [facility] ([place]) Comment on above: Performed By: #### A DIFF, A1C, CBC, GFR, ANEU, CMP #### [address] [address] Monocytes/100 WBC (Bld) 8.7 % Normal 1.7-13.0 [facility] ([place] Comment on above: Performed By: #### A DIFF, A1C, CBC, GFR, ANEU, CMP #### [address] [address] Neutrophils/100 WBC (Bld) 66.8 % Normal 37.0-80.0 [facility] ([place] Comment on above: Performed By: #### A DIFF, A1C, CBC, GFR, ANEU, CMP #### [address] [address] .GFRon 06-12-2023 GFR Non- 10 ml/min/1.73sqm Normal [facility] ([place]) Comment on above: Result Comment: GFR Population mean for , Non- Americans Ages 20-29 = 116 mL/min/1.73 sq.m. Ages 30-39 = 107 mL/min/1.73 sq.m. Ages 40-49 = 99 mL/min/1.73 sq.m. Ages 50-59 = 93 mL/min/1.73 sq.m. Ages 60-69 = 85 mL/min/1.73 sq.m. Ages 70+ = 75 mL/min/1.73 sq.m. Chronic Kidney Disease: Less than 60 mL/min/1.73 square meters End Stage Renal Disease: Less than 15 mL/min/1.73 square meters Performed By: #### A DIFF, A1C, CBC, GFR, ANEU, CMP #### [address] [address] GFR 12 ml/min/1.73sqm Normal [facility] ([place]) Comment on above: Result Comment: GFR Population mean for , Non- Americans Ages 20-29 = 116 mL/min/1.73 sq.m. Ages 30-39 = 107 mL/min/1.73 sq.m. Ages 40-49 = 99 mL/min/1.73 sq.m. Ages 50-59 = 93 mL/min/1.73 sq.m. Ages 60-69 = 85 mL/min/1.73 sq.m. Ages 70+ = 75 mL/min/1.73 sq.m. Chronic Kidney Disease: Less than 60 mL/min/1.73 square meters End Stage Renal Disease: Less than 15 mL/min/1.73 square meters Performed By: #### A DIFF, A1C, CBC, GFR, ANEU, CMP #### [address] [address] .NEUABSon 06-12-2023 Neutrophil, Absolute 5.5 10 3/mcL Normal 2.9-6.2 [facility] ([place]) Comment on above: Performed By: #### A DIFF, A1C, CBC, GFR, ANEU, CMP #### [address] [address] A1Con 06-12-2023 HbA1c (Bld) [Mass fraction] 7.6 % High 4.3-6.4 [facility] ([place]) Comment on above: Performed By: #### A DIFF, A1C, CBC, GFR, ANEU, CMP #### [address] [address] CBCon 06-12-2023 Erythrocyte distribution width (RBC) [Ratio] 12.9 % Normal 11.5-14.5 [facility] ([place] Comment on above: Performed By: #### A DIFF, A1C, CBC, GFR, ANEU, CMP #### [address] [address] Hematocrit (Bld) [Volume fraction] 34.7 % Low 42.0-52.0 [facility] ([place] Comment on above: Performed By: #### A DIFF, A1C, CBC, GFR, ANEU, CMP #### [place] [id number] Hgb 11.5 G/dL Low 14.0-18.0 [facility] ([place] Comment on above: Performed By: #### A DIFF, A1C, CBC, GFR, ANEU, CMP #### [address] [address] MCH (RBC) [Entitic mass] 26.8 pg Low 27.0-31.2 [facility] ([place]) Comment on above: Performed By: #### A DIFF, A1C, CBC, GFR, ANEU, CMP #### [address] [address] MCHC 33.1 G/dL Normal 31.8-35.4 [facility] ([place] Comment on above: Performed By: #### A DIFF, A1C, CBC, GFR, ANEU, CMP #### [place] [id number] MCV (RBC) [Entitic vol] 81.1 fL Normal 80.0-94.0 [facility] ([place] Comment on above: Performed By: #### A DIFF, A1C, CBC, GFR, ANEU, CMP #### [address] [address] Platelet 189 10 3/mcL Normal 130-400 [facility] ([place] Comment on above: Performed By: #### A DIFF, A1C, CBC, GFR, ANEU, CMP #### [address] [address] Platelet mean volume (Bld) [Entitic vol] 9.0 fL Normal 7.4-10.4 [facility] ([place]) Comment on above: Performed By: #### A DIFF, A1C, CBC, GFR, ANEU, CMP #### [address] [address] RBC 4.28 10 6/mcL Normal 4.04-6.13 [facility] ([place]) Comment on above: Performed By: #### A DIFF, A1C, CBC, GFR, ANEU, CMP #### [address] [address] WBC 8.3 10 3/mcL Normal 4.6-10.8 [facility] ([place]) Comment on above: Performed By: #### A DIFF, A1C, CBC, GFR, ANEU, CMP #### [address] [address] CMPon 06-12-2023 Albumin Level 3.4 G/dL Normal 3.4-4.8 [facility] ([place] Comment on above: Performed By: #### A DIFF, A1C, CBC, GFR, ANEU, CMP #### [address] [address] Albumin/Globulin [Mass ratio] 0.8 {ratio} Low 1.1-2.5 [facility] ([place]) Comment on above: Performed By: #### A DIFF, A1C, CBC, GFR, ANEU, CMP #### [address] [address] ALP [Catalytic activity/Vol] 43 U/L Normal 40-135 [facility] ([place]) Comment on above: Performed By: #### A DIFF, A1C, CBC, GFR, ANEU, CMP #### [address] [address] ALT [Catalytic activity/Vol] 20 U/L Normal 16-63 [facility] ([place]) Comment on above: Performed By: #### A DIFF, A1C, CBC, GFR, ANEU, CMP #### [address] [address] AST [Catalytic activity/Vol] 17 U/L Normal 10-40 [facility] ([place]) Comment on above: Performed By: #### A DIFF, A1C, CBC, GFR, ANEU, CMP #### [address] [address] Bili Total 0.4 mg/dL Normal 0.2-1.0 [facility] ([place]) Comment on above: Result Comment: Use of this assay is not recommended for patients undergoing treatment with eltrombopag due to the potential for falsely elevated results. Performed By: #### A DIFF, A1C, CBC, GFR, ANEU, CMP #### [address] [address] BUN/Creatinine Ratio 10 ratio Normal 7-27 [facility] ([place]) Comment on above: Performed By: #### A DIFF, A1C, CBC, GFR, ANEU, CMP #### [address] [address] Calcium [Mass/Vol] 8.5 mg/dL Normal 8.4-10.2 [facility] ([place]) Comment on above: Performed By: #### A DIFF, A1C, CBC, GFR, ANEU, CMP #### [address] [address] Chloride [Moles/Vol] 98 mmol/L Normal 98-107 [facility] ([place]) Comment on above: Performed By: #### A DIFF, A1C, CBC, GFR, ANEU, CMP #### [address] [address] CO2 [Moles/Vol] 30 mmol/L Normal 23-31 [facility] ([place]) Comment on above: Performed By: #### A DIFF, A1C, CBC, GFR, ANEU, CMP #### [address] [address] Creatinine [Mass/Vol] 5.69 mg/dL High 0.70-1.30 [facility] ([place]) Comment on above: Performed By: #### A DIFF, A1C, CBC, GFR, ANEU, CMP #### [address] [address] Electrolyte Balance 11.0 mEq/L Normal 4.0-15.0 [facility] ([place]) Comment on above: Performed By: #### A DIFF, A1C, CBC, GFR, ANEU, CMP #### [address] [address] Globulin 4.0 G/dL Normal [facility] ([place]) Comment on above: Performed By: #### A DIFF, A1C, CBC, GFR, ANEU, CMP #### [address] [address] Glucose [Mass/Vol] 244 mg/dL High 80-115 [facility] ([place]) Comment on above: Performed By: #### A DIFF, A1C, CBC, GFR, ANEU, CMP #### [address] [address] Potassium [Moles/Vol] 4.0 mmol/L Normal 3.5-5.1 [facility] ([place]) Comment on above: Performed By: #### A DIFF, A1C, CBC, GFR, ANEU, CMP #### [address] [address] Sodium [Moles/Vol] 139 mmol/L Normal 136-145 [facility] ([place]) Comment on above: Performed By: #### A DIFF, A1C, CBC, GFR, ANEU, CMP #### [address] [address] Total Protein 7.4 G/dL Normal 6.4-8.2 [facility] ([place]) Comment on above: Performed By: #### A DIFF, A1C, CBC, GFR, ANEU, CMP #### [id number] [place], [place] [address] Urea nitrogen [Mass/Vol] 57 mg/dL High 7-18 [facility] ([place]) Comment on above: Performed By: #### A DIFF, A1C, CBC, GFR, ANEU, CMP #### [id number] [place], [place] [address] LABORATORYOrdered By: SYSTEM SYSTEM on 06-12-2023 Albumin BCP dye [Mass/Vol] 3.4 G/dL Normal 3.4 - 4.8 G/dL AO ADM SS Albumin/Globulin [Mass ratio] 0.8 {ratio} Low 1.1 - 2.5 ratio AO ADM SS ALP [Catalytic activity/Vol] 43 U/L Normal 40 - 135 U/L AO ADM SS ALT With P-5'-P [Catalytic activity/Vol] 20 U/L Normal 16 - 63 U/L AO ADM SS AST With P-5'-P [Catalytic activity/Vol] 17 U/L Normal 10 - 40 U/L AO ADM SS Basophil, Absolute 0.0 103/mcL Normal 0.0 - 0.2 10^3/mcL AO Workflow SS Basophils/100 WBC (Bld) 0.4 % Normal 0.0 - 2.5 % AO Workflow SS Bilirubin [Mass/Vol] 0.4 mg/dL Normal 0.2 - 1 .0 mg/dL AO ADM SS Comment on above: Interpretive Data: U se of this assay is not recommended for patients undergoing treatment with eltrombopag due to the potential for falsely elevated results. Calcium [Mass/Vol] 8.5 mg/dL Normal 8.4 - 10. 2 mg/dL AO ADM SS Chloride [Moles/Vol] 98 mmol/L Normal 98 - 10 7 mmol/L AO ADM SS CO2 [Moles/Vol] 30 mmol/L Normal 23 - 31 mmol/L AO ADM SS Creatinine [Mass/Vol] 5.69 mg/dL High 0.70 - 1.30 mg/dL AO ADM SS Electrolyte Balance 11.0 mEq/L Normal 4.0 - 15 .0 mEq/L AO ADM SS Eosinophil, Absolute 0.2 103/mcL Normal 0.0 - 0 .4 10^3/mcL AO Workflow SS Eosinophils/100 WBC (Bld) 2.4 % Normal 0.0 - 7.0 % AO Workflow SS Erythrocyte distribution width (RBC) [Ratio] 12.9 % Normal 11.5 - 14.5 % AO Workflow SS GFR/1.73 sq M.predicted among blacks MDRD (S/P/Bld) [Vol rate/Area] 12 ml/min/1.73sqm Invalid Interpretation Code AO Chemistry S Comment on above: Interpretive Data: GFR Population mean for , Non- Americans Ages 20-29 = 116 mL/min/1.73 sq.m. Ages 30-39 = 107 mL/min/1.73 sq.m. Ages 40-49 = 99 mL/min/1.73 sq.m. Ages 50-59 = 93 mL/min/1.73 sq.m. Ages 60-69 = 85 mL/min/1.73 sq.m. Ages 70+ = 75 mL/min/1.73 sq.m. Chronic Kidney Disease: Less than 60 mL/min/1.73 square meters End Stage Renal Disease: Less than 15 mL/min/1.73 square meters GFR/1.73 sq M.predicted among non-blacks MDRD (S/P/Bld) [Vol rate/Area] 10 ml/min/1.73sqm Invalid Interpretation Code AO Chemistry S Comment on above: Interpretive Data: GFR Population mean for , Non- Americans Ages 20-29 = 116 mL/min/1.73 sq.m. Ages 30-39 = 107 mL/min/1.73 sq.m. Ages 40-49 = 99 mL/min/1.73 sq.m. Ages 50-59 = 93 mL/min/1.73 sq.m. Ages 60-69 = 85 mL/min/1.73 sq.m. Ages 70+ = 75 mL/min/1.73 sq.m. Chronic Kidney Disease: Less than 60 mL/min/1.73 square meters End Stage Renal Disease: Less than 15 mL/min/1.73 square meters Globulin 4.0 G/dL Invalid Interpretation Code AO ADM SS Glucose [Mass/Vol] 244 mg/dL High 80 - 115 mg/dL AO ADM SS HbA1c (Bld) [Mass fraction] 7.6 % High 4.3 - 6.4 % AO ADM SS Hematocrit (Bld) [Volume fraction] 34.7 % Low 42.0 - 52.0 % AO Workflow SS Hemoglobin (Bld) [Mass/Vol] 11.5 G/dL Low 14.0 - 18.0 G/dL AO Workflow SS Lymphocyte, Absolute 1.8 103/mcL Normal 0.8 - 3 .9 10^3/mcL AO Workflow SS Lymphocytes/100 WBC (Bld) 21.7 % Normal 10.0 - 50.0 % AO Workflow SS MCH (RBC) [Entitic mass] 26.8 pg Low 27.0 - 31.2 pg AO Workflow SS MCHC 33.1 G/dL Normal 31.8 - 35.4 G/dL AO Workflow SS MCV (RBC) [Entitic vol] 81.1 fL Normal 80.0 - 94.0 fL AO Workflow SS Monocyte, Absolute 0.7 103/mcL Normal 0.2 - 1.0 10^3/mcL AO Workflow SS Monocytes/100 WBC (Bld) 8.7 % Normal 1.7 - 13.0 % AO Workflow SS Neutrophil, Absolute 5.5 103/mcL Normal 2.9 - 6 .2 10^3/mcL AO Workflow SS Neutrophils/100 WBC (Bld) 66.8 % Normal 37.0 - 80.0 % AO Workflow SS Platelet mean volume (Bld) [Entitic vol] 9.0 fL Normal 7.4 - 10.4 fL AO Workflow SS Platelets (Bld) [#/Vol] 189 103/mcL Normal 130 - 400 10^3/mcL AO Workflow SS Potassium [Moles/Vol] 4.0 mmol/L Normal 3.5 - 5.1 mmol/L AO ADM SS Protein [Mass/Vol] 7.4 G/dL Normal 6.4 - 8.2 G/dL AO ADM SS RBC (Bld) [#/Vol] 4.28 106/mcL Normal 4.04 - 6.1 3 10^6/mcL AO Workflow SS Sodium [Moles/Vol] 139 mmol/L Normal 136 - 145 mmol/L AO ADM SS Urea nitrogen [Mass/Vol] 57 mg/dL High 7 - 18 mg/dL AO ADM SS Urea nitrogen/Creatinine [Mass ratio] 10 ratio Normal 7 - 27 ratio AO ADM SS WBC (Bld) [#/Vol] 8.3 103/mcL Normal 4.6 - 10.8 10^3/mcL AO Workflow SS Basophil percentageOrdered B y: Julio Mcclendon on 01-11-2023 Chloride [Moles/Vol] 102 mmol/L 98-107 [facility] Glucose [Mass/Vol] 81 mg/dL 74-106 [facility] Potassium [Moles/Vol] 4.0 mmol/L 3.5-5.1 [facility] Sodium [Moles/Vol] 138 mmol/L 136-145 [facility] WBC (Bld) [#/Vol] 6.7 10*3/uL 4.4-11.0 [facility] Blood erythrocytes count (nu mber/volume)Ordered By: Julio Mcclendon on 01-11-2023 RBC (Bld) [#/Vol] 4.84 10*6/uL 4.6-6.2 [facility] Blood hemoglobin measurement (mass/volume)Ordered By: Julio Mcclendon on 01-11-2023 Hemoglobin (Bld) [Mass/Vol] 12.6 g/dL 13.0-16.5 [facility] Blood platelet mean volumeOr dered By: Julio Mcclendon on 01-11-2023 Platelet mean volume (Bld) [Entitic vol] 11.0 fL 6.2-12.0 [facility] Determination of erythrocyte mean corpuscular volume (MCV)Ordered By: Julio Mcclendon on 01-11-2023 MCV (RBC) [Entitic vol] 85.5 fL 80-94 [facility] Hematocrit Auto (Bld) [Volum e fraction]Ordered By: Julio Mcclendon on 01-11-2023 Hematocrit (Bld) [Volume fraction] 41.4 % 40-54 [facility] Laboratory - Chemistry and C hemistry - challengeOrdered By: Julio Mcclendon on 01-11-2023 CO2 [Moles/Vol] 32.0 mmol/L 21.0-32.0 [facility] Urea nitrogen/Creatinine [Mass ratio] 9.3 mg/mg 10-20 [facility] Laboratory - Hematology and Cell countsOrdered By: Julio Mcclendon on 01-11-2023 Erythrocyte distribution width (RBC) [Entitic vol] 38.8 fL 35.1-43.9 [facility] Erythrocyte distribution width (RBC) [Ratio] 12.5 % 11.6-14.6 [facility] MCH (RBC) [Entitic mass] 26.0 pg 27.0-32.0 [facility] MCHC Auto (RBC) [Mass/Vol]Or dered By: Julio Mcclendon on 01-11-2023 MCHC (RBC) [Mass/Vol] 30.4 g/dL 32-36 [facility] No Panel InformationOrdered By: Julio Mcclendon on 01-11-2023 Estimated Creatinine Clearance Calc 11.89 ml/min [facility] Estimated GFR (MDRD) Amer 17 mL/min >60 [facility] Comment on above: GFR Calc Estimated GFR (MDRD) Non-Af Amer 14 mL/min >60 [facility] Comment on above: Non- GFR Calc Platelets bldOrdered By: Christiano Mcclendon on 01-11-2023 Platelets (Bld) [#/Vol] 207 10*3/uL 150-450 [facility] Serum or plasma calcium viet urement (mass/volume)Ordered By: Julio Mcclendon on 01-11-2023 Calcium [Mass/Vol] 8.9 mg/dL 8.5-10.1 [facility] Serum or plasma creatinine m easurement (mass/volume)Ordered By: Julio Mcclendon on 01-11-2023 Creatinine [Mass/Vol] 4.52 mg/dL 0.70-1.30 [facility] Comment on above: The validity of the calculated GFR & GFRAA in patients over 70 years has not been determined. Clinical correlation is essential. Serum or plasma urea nitroge n measurement (mass/volume)Ordered By: Julio Mcclendon on 01-11-2023 Urea nitrogen [Mass/Vol] 42 mg/dL 7-18 [facility] Thin prep Papanicolaou smear with manual screeningOrdered By: Julio Mcclendon on 01-11-2023 Thin prep Papanicolaou smear with manual screening 4 5-15 [facility] No Panel InformationOrdered By: Muriel Pearson on 10-12-2022 Thyroid Stimulating Hormone (TSH) 0.58 uIU/mL 0.358-3.74 [facility] Basophil percentageOrdered B y: Zak Weinstein on 04-04-2023 Bilirubin [Mass/Vol] 0.40 mg/dL 0.20-1.00 [facility] Comment on above: For patients on eltr ombopag therapy, use of Dimension [place] TBIL is not recommended. Cholesterol [Mass/Vol] 153 mg/dL <200 [facility] Comment on above: <200 mg/dL Desirable 200-240 mg/dL Borderline >240 mg/dL High Risk Protein [Mass/Vol] 7.8 g/dL 6.4-8.2 [facility] Triglyceride [Mass/Vol] 173 mg/dL <199 [facility] Comment on above: The drugs N-Acetylcy steine and Metamizole may falsely depress this assay.Serum Triglycerides Reference Interval Normal <150 mg/dL Borderline high 150 - 199 mg/dL High 200 - 499 mg/dL Very High > or = 500 mg/dL Direct bilirubinOrdered By: Zak Weinstein on 08-08-2022 Bilirubin.direct [Mass/Vol] 0.16 mg/dL 0.00-0.30 [facility] Laboratory - Chemistry and C hemistry - challengeOrdered By: Zak Weinstein on 08-08-2022 ALP [Catalytic activity/Vol] 51 U/L 45-117 [facility] ALT [Catalytic activity/Vol] 16 U/L 16-61 [facility] Globulin (S) [Mass/Vol] 4.4 g/dL 2.2-4.2 [facility] No Panel InformationOrdered By: Zak Weinstein on 08-08-2022 Thyroid Stimulating Hormone (TSH) 0.16 uIU/mL 0.358-3.74 [facility] Serum or plasma albumin viet urement (mass/volume)Ordered By: Zak Weinstein on 08-08-2022 Albumin [Mass/Vol] 3.4 g/dL 3.2-5.0 [facility] Serum or plasma cholesterol in HDL measurement (mass/volume)Ordered By: Zak Weinstein on 08-08-2022 Cholesterol in HDL [Mass/Vol] 35 mg/dL >40 [facility] Comment on above: The drugs N-Acetylcy steine and Metamizole may falsely depress this assay. Reference Range HDL <40 mg/dL Low HDL Cholesterol HDL >or= 60 mg/dL High HDL Cholesterol Serum or plasma cholesterol in VLDL measurement (mass/volume)Ordered By: Zak Weinstein on 08-08-2022 Cholesterol in VLDL [Mass/Vol] 35 mg/dL 5-40 [facility] Serum or plasma low density lipoprotein (LDL) cholesterol measurement (mass/volume)Ordered By: Zak Weinstein on 08-08-2022 Cholesterol in LDL [Mass/Vol] 83 mg/dL 0-130 [facility] Thin prep Papanicolaou smear with manual screeningOrdered By: Zak Weinstein on 08-08-2022 Thin prep Papanicolaou smear with manual screening 19 U/L 15-37 [facility] Basophil percentageOrdered B y: Dr. Mcclendon on 06-07-2022 Chloride [Moles/Vol] 97 mmol/L 98-107 [facility] Glucose [Mass/Vol] 209 mg/dL 74-106 [facility] Comment on above: Glucose result great er than or equal to 200 mg/dLsuggests DIABETES MELLITUS per A.D.A. criteria. Potassium [Moles/Vol] 3.7 mmol/L 3.5-5.1 [facility] Sodium [Moles/Vol] 136 mmol/L 136-145 [facility] WBC (Bld) [#/Vol] 7.7 10*3/uL 4.4-11.0 [facility] Blood erythrocytes count (nu mber/volume)Ordered By: Dr. Mcclendon on 06-07-2022 RBC (Bld) [#/Vol] 4.67 10*6/uL 4.6-6.2 [facility] Blood hemoglobin measurement (mass/volume)Ordered By: Dr. Mcclendon on 06-07-2022 Hemoglobin (Bld) [Mass/Vol] 12.1 g/dL 13.0-16.5 [facility] Blood platelet mean volumeOr dered By: Dr. Mcclendon on 06-07-2022 Platelet mean volume (Bld) [Entitic vol] 10.8 fL 6.2-12.0 [facility] Determination of erythrocyte mean corpuscular volume (MCV)Ordered By: Dr. Mcclendon on 06-07-2022 MCV (RBC) [Entitic vol] 83.3 fL 80-94 [facility] Hematocrit Auto (Bld) [Volum e fraction]Ordered By: Dr. Mcclendon on 06-07-2022 Hematocrit (Bld) [Volume fraction] 38.9 % 40-54 [facility] Laboratory - Chemistry and C hemistry - challengeOrdered By: Dr. Mcclendon on 06-07-2022 CO2 [Moles/Vol] 31.0 mmol/L 21.0-32.0 [facility] Urea nitrogen/Creatinine [Mass ratio] 8.8 mg/mg 10-20 [facility] Laboratory - Hematology and Cell countsOrdered By: Dr. Mcclendon on 06-07-2022 Erythrocyte distribution width (RBC) [Entitic vol] 37.7 fL 35.1-43.9 [facility] Erythrocyte distribution width (RBC) [Ratio] 12.5 % 11.6-14.6 [facility] MCH (RBC) [Entitic mass] 25.9 pg 27.0-32.0 [facility] MCHC Auto (RBC) [Mass/Vol]Or dered By: Dr. Mcclendon on 06-07-2022 MCHC (RBC) [Mass/Vol] 31.1 g/dL 32-36 [facility] No Panel InformationOrdered By: Dr. Mcclendon on 06-07-2022 Estimated Creatinine Clearance Calc 13.26 ml/min [facility] Estimated GFR (MDRD) Amer 19 mL/min >60 [facility] Comment on above: GFR Calc Estimated GFR (MDRD) Non-Af Amer 16 mL/min >60 [facility] Comment on above: Non- GFR Calc Platelets bldOrdered By: Dr. Mcclendon on 06-07-2022 Platelets (Bld) [#/Vol] 170 10*3/uL 150-450 [facility] Serum or plasma calcium viet urement (mass/volume)Ordered By: Dr. Mcclendon on 06-07-2022 Calcium [Mass/Vol] 8.3 mg/dL 8.5-10.1 [facility] Serum or plasma creatinine m easurement (mass/volume)Ordered By: Dr. Mcclendon on 06-07-2022 Creatinine [Mass/Vol] 4.11 mg/dL 0.70-1.30 [facility] Comment on above: The validity of the calculated GFR & GFRAA in patients over 70 years has not been determined. Clinical correlation is essential. Serum or plasma urea nitroge n measurement (mass/volume)Ordered By: Dr. Mcclendon on 06-07-2022 Urea nitrogen [Mass/Vol] 36 mg/dL 7-18 [facility] Thin prep Papanicolaou smear with manual screeningOrdered By: Dr. Mcclendon on 06-07-2022 Thin prep Papanicolaou smear with manual screening 8 5-15 [facility] Basophil percentageon 2021 Bilirubin [Mass/Vol] 0.40 mg/dL 0.20-1.00 [facility] Work Phone: Comment on above: For patients on eltr ombopag therapy, use of [place] TBIL is not recommended. Cholesterol [Mass/Vol] 215 mg/dL <200 [facility] Work Phone: Comment on above: <200 mg/dL Desirable 200-240 mg/dL Borderline >240 mg/dL High Risk Protein [Mass/Vol] 8.4 g/dL 6.4-8.2 [facility] Work Phone: [phone] Triglyceride [Mass/Vol] 257 mg/dL [facility] Work Phone: Comment on above: The drugs N-Acetylcy steine and Metamizole may falsely depress this assay.Serum Triglycerides Reference Interval Normal <150 mg/dL Borderline high 150 - 199 mg/dL High 200 - 499 mg/dL Very High > or = 500 mg/dL Direct bilirubinon Bilirubin.direct [Mass/Vol] 0.12 mg/dL 0.00-0.30 [facility] Work Phone: [phone] Laboratory - Chemistry and C hemistry - challengeon 09-06-2021 ALP [Catalytic activity/Vol] 55 U/L 45-117 [facility] Work Phone: [phone] ALT [Catalytic activity/Vol] 18 U/L 16-61 [facility] Work Phone: [phone] Globulin (S) [Mass/Vol] 4.5 g/dL 2.2-4.2 [facility] Work Phone: [phone] No Panel Informationon 09-06 Thyroid Stimulating Hormone (TSH) 0.36 uIU/mL 0.358-3.74 [facility] Work Phone: Serum or plasma albumin viet urement (mass/volume)on 09-06-2021 Albumin [Mass/Vol] 3.9 g/dL 3.2-5.0 [facility] Work Phone: Serum or plasma cholesterol in HDL measurement (mass/volume)on 09-06-2021 Cholesterol in HDL [Mass/Vol] 44 mg/dL [facility] Work Phone: Comment on above: The drugs N-Acetylcy steine and Metamizole may falsely depress this assay. Reference Range HDL <40 mg/dL Low HDL Cholesterol HDL >or= 60 mg/dL High HDL Cholesterol Serum or plasma cholesterol in VLDL measurement (mass/volume)on 09-06-2021 Cholesterol in VLDL [Mass/Vol] 51 mg/dL 5-40 [facility] Work Phone: Serum or plasma low density lipoprotein (LDL) cholesterol measurement (mass/volume)on 09-06-2021 Cholesterol in LDL [Mass/Vol] 120 mg/dL 0-130 [facility] Work Phone: Thin prep Papanicolaou smear with manual screeningon 09-06-2021 Thin prep Papanicolaou smear with manual screening 18 U/L 15-37 [facility] Work Phone: Basophil percentageon 2021 Chloride [Moles/Vol] 96 mmol/L 98-107 [facility] Work Phone: [phone] Glucose [Mass/Vol] 127 mg/dL 74-106 [facility] Work Phone: Comment on above: Fasting Glucose resu lt greater than or equal to 126 mg/dL suggests DIABETES MELLITUS per A.D.A. criteria. Potassium [Moles/Vol] 3.8 mmol/L 3.5-5.1 [facility] Work Phone: [phone] Sodium [Moles/Vol] 136 mmol/L 136-145 [facility] Work Phone: [phone] WBC (Bld) [#/Vol] 8.0 10*3/uL 4.4-11.0 [facility] Work Phone: Blood erythrocytes count (nu mber/volume)on 05-31-2021 RBC (Bld) [#/Vol] 4.42 10*6/uL 4.6-6.2 [facility] Work Phone: [phone] Blood hemoglobin measurement (mass/volume)on 05-31-2021 Hemoglobin (Bld) [Mass/Vol] 12.0 g/dL 13.0-16.5 [facility] Work Phone: [phone] Blood platelet mean volumeon 05-31-2021 Platelet mean volume (Bld) [Entitic vol] 9.9 fL 6.2-12.0 [facility] Work Phone: [phone] Determination of erythrocyte mean corpuscular volume (MCV)on 05-31-2021 MCV (RBC) [Entitic vol] 84.2 fL 80-94 [facility] Work Phone: [phone] Hematocrit Auto (Bld) [Volum e fraction]on 05-31-2021 Hematocrit (Bld) [Volume fraction] 37.2 % 40-54 [facility] Work Phone: [phone] Laboratory - Chemistry and C hemistry - challengeon 05-31-2021 CO2 [Moles/Vol] 31.0 mmol/L 21.0-32.0 [facility] Work Phone: [phone] Urea nitrogen/Creatinine [Mass ratio] 9.2 mg/mg 10-20 [facility] Work Phone: [phone] Laboratory - Hematology and Cell countson 05-31-2021 Erythrocyte distribution width (RBC) [Entitic vol] 39.0 fL 35.1-43.9 [facility] Work Phone: [phone] Erythrocyte distribution width (RBC) [Ratio] 12.8 % 11.6-14.6 [facility] Work Phone: [phone] MCH (RBC) [Entitic mass] 27.1 pg 27.0-32.0 [facility] Work Phone: [phone] MCHC Auto (RBC) [Mass/Vol]on 05-31-2021 MCHC (RBC) [Mass/Vol] 32.3 g/dL 32-36 [facility] Work Phone: No Panel Informationon 05-31 Estimated Creatinine Clearance Calc 10.60 ml/min [facility] Work Phone: Estimated GFR (MDRD) Amer 14 mL/min >60 [facility] Work Phone: Comment on above: GFR Calc Estimated GFR (MDRD) Non-Af Amer 12 mL/min >60 [facility] Work Phone: Comment on above: Non- GFR Calc Platelets bldon 05-31-2021 Platelets (Bld) [#/Vol] 193 10*3/uL 150-450 [facility] Work Phone: Serum or plasma calcium viet urement (mass/volume)on 05-31-2021 Calcium [Mass/Vol] 7.8 mg/dL 8.5-10.1 [facility] Work Phone: Serum or plasma creatinine m easurement (mass/volume)on 05-31-2021 Creatinine [Mass/Vol] 5.21 mg/dL 0.70-1.30 [facility] Work Phone: Comment on above: The validity of the calculated GFR & GFRAA in patients over 70 years has not been determined. Clinical correlation is essential. Serum or plasma urea nitroge n measurement (mass/volume)on 05-31-2021 Urea nitrogen [Mass/Vol] 48 mg/dL 7-18 [facility] Work Phone: Thin prep Papanicolaou smear with manual screeningon 05-31-2021 Thin prep Papanicolaou smear with manual screening 9 5-15 [facility] Work Phone: Lab Report: T4 Total, Thyrox inon 06-20-2017 Thyroxine (T4) 13.2 ug/dL High 4.5-12.1 [facility] Work Phone: Lab Report: Thyroid Stim Hor christine (TSH)on 06-20-2017 Thyroid stimulating hormone (TSH) 0.52 u[iU]/mL Invalid Interpretation Code 0.358-3.74 [facility] Work Phone: [phone] Lab Report: T4 Free Directon 05-24-2017 Thyroxine (T4) free 1.42 ng/dL Invalid Interpretation Code 0.76-1.46 [facility] Work Phone: [phone] Lab Report: Thyroid Stim Hor christine (TSH)on 05-24-2017 Thyroid stimulating hormone (TSH) 0.93 u[iU]/mL Invalid Interpretation Code 0.358-3.74 [facility] Work Phone: [phone] Lab Report: BNP,B-Type NATRI URETIC PEPTIDEon 10-25-2016 Natriuretic peptide B mass conc (Bld) 110.6 pg/mL High 0-100 [facility] Work Phone: [phone] Office Visit: [facility] 10-26-19 17 Documentation of current medications (procedure) Done Invalid Interpretation Code [facility] Work Phone: [phone] Fall risk assessment No Invalid Interpretation Code [facility] Work Phone: [phone] Protein mass conc Done [facility] Work Phone: [phone] Office Visiton 04-20-2016 Dietary management education, guidance, and counseling (procedure) yes Invalid Interpretation Code [facility] Phone: [phone] Documentation of current medications (procedure) Done Invalid Interpretation Code [facility] Work Phone: [phone] Protein mass conc Done [facility] Work Phone: [phone] Lab Report: Basic Metabolic Profile (BMP)on 03-21-2016 Anion gap 9 mmol/L Invalid Interpretation Code -15 [facility] Work Phone: [phone] Anion gap molar conc 9 mmol/L - [facility] Work Phone: [phone] BUN/Creatinine Ratio 21.4 RATIO High 10- [facility] Work Phone: [phone] Calcium 8.9 mg/dL Invalid Interpretation Code 8.5-10.1 [facility] Work Phone: [phone] Chloride 102 mmol/L Invalid Interpretation Code 98-107 [facility] Work Phone: [phone] CO2 30.0 mmol/L Invalid Interpretation Code 21.0-32.0 [facility] Work Phone: [phone] CO2 ppres (BldV) 30.0 mmol/L 21.0-32.0 [facility] Work Phone: [phone] Creatinine 1.17 mg/dL Invalid Interpretation Code 0.70-1.30 [facility] Work Phone: [phone] eGFR (non-black) 82 mL/min/{1.73_m2} Invalid Interpretation Code >60 [facility] Work Phone: [phone] eGFR (non-black) 68 mL/min/{1.73_m2} Invalid Interpretation Code >60 [facility] Work Phone: [phone] EST GFR - AA 82 mL/min >60 [facility] Work Phone: [phone] Glucose 98 mg/dL Invalid Interpretation Code 70-110 [facility] Work Phone: [phone] Glucose mass conc 98 mg/dL Invalid Interpretation Code 70-110 [facility] Work Phone: [phone] Potassium 3.6 mmol/L Invalid Interpretation Code 3.5-5.1 [facility] Work Phone: [phone] Sodium 141 mmol/L Invalid Interpretation Code 136-145 [place] Phone: [phone] Urea nitrogen 25 mg/dL High 7-18 [facility] Work Phone: [phone]) Lab Report: Hemoglobin A1con 03-21-2016 HbA1c 5.7 % Invalid Interpretation Code 4.2-6.3 [facility] Phone: [phone] Office Visiton 02-25-2016 Tobacco smoking status NHIS Tobacco smoking status NHIS Invalid Interpretation Code [facility] Work Phone: [phone] Tobacco smoking status NHIS Former smoker [facility] Work Phone: [phone] Tobacco use [facility] Former smoker Invalid Interpretation Code [place] Phone: [phone] Lab Report: Lipid Profileon 01-11-2016 Cholesterol 119 mg/dL Invalid Interpretation Code 200 [facility] Work Phone: [phone] HDL Cholesterol 35 mg/dL Low [facility] Work Phone: [phone] LDL Cholesterol 49 mg/dL Invalid Interpretation Code 0-130 [facility] Work Phone: [phone] Triglyceride 177 mg/dL Invalid Interpretation Code [facility] Work Phone: [phone] very low density lipoproteins 35 mg/dL Invalid Interpretation Code 5-40 [facility] Work Phone: [phone] Lab Report: Liver Profileon 01-11-2016 Alanine aminotransferase (ALT) 58 U/L Invalid Interpretation Code 12-78 [facility] Work Phone: [phone] Albumin 3.8 g/dL Invalid Interpretation Code 3.4-5.0 [facility] Work Phone: [phone] Alkaline phosphatase (ALP) 66 U/L Invalid Interpretation Code 50-136 [facility] Work Phone: [phone] ALP enzyme act/vol (Bld) 66 U/L 50-136 [facility] Work Phone: [phone] Aspartate aminotransferase (AST) 33 U/L Invalid Interpretation Code 15-37 [facility] Work Phone: [phone] Bilirubin (direct) 0.11 mg/dL Invalid Interpretation Code 0.00-0.30 [facility] Work Phone: [phone] Bilirubin (total) 0.50 mg/dL Invalid Interpretation Code 0.20-1.00 [facility] Work Phone: [phone] Globulin 3.8 g/dL High 2.3-3.5 [facility] Work Phone: [phone] Globulin mass conc (S) 3.8 g/dL High 2.3-3.5 [facility] Work Phone: [phone] Protein 7.6 g/dL Invalid Interpretation Code 6.4-8.2 [facility] Work Phone: [phone]) Lab Report: T4 Total, Thyrox inon 01-11-2016 Thyroxine (T4) 13.8 ug/dL High 4.5-12.1 [facility] Work Phone: [phone]) Lab Report: Thyroid Stim Hor christine (TSH)on 01-11-2016 Thyroid stimulating hormone (TSH) 0.49 u[iU]/mL Invalid Interpretation Code 0.358-3.74 [facility] Work Phone: [phone] Clinical Lists 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: 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 10-11-2015 Left ventricular Ejection fraction 55 % Invalid Interpretation Code [facility] Work Phone: [phone] Lab Report: Comprehensive Me tabolic Profilon 04-21-2015 Albumin/Globulin Ratio 1.1 {ratio} Invalid Interpretation Code 0.9-2.4 [facility] Work Phone: [phone]) Lab Report: PSA,Total - Janeen al Screenon 04-21-2015 prostate specific antigen (PSA) screening 1.26 ng/mL Invalid Interpretation Code 0.00-4.00 [facility] Work Phone: [phone] Protein mass conc 1.26 ng/mL 0.00-4.00 [facility] Work Phone: [phone] PSA,TOT SCREEN 1.26 ng/mL Invalid Interpretation Code 0.00-4.00 [facility] Work Phone: [phone] Lab Report: Uric Acidon 04-06 Urate 5.5 mg/dL Invalid Interpretation Code 3.5-7.2 [facility] Work Phone: [phone] Replaced Document: Tomy ORTIZ Observationson 11-30-2014 EKG QRS axis 2 deg Invalid Interpretation Code [facility] Phone: [phone] electrocardiogram interpretation 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 - Nonspecific T-abnormality. 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 - Nonspecific T-abnormality. ABNORMAL Invalid Interpretation Code [facility] Work Phone: [phone] P [place] 54 deg Invalid Interpretation Code [facility] Phone: [phone] P wave axis, electrocardiogram 54 deg Invalid Interpretation Code [facility] Work Phone: [phone] KS Interval 190 ms Invalid Interpretation Code [facility] Work Phone: [phone] KS interval, electrocardiogram 190 ms Invalid Interpretation Code [facility] Work Phone: [phone] Pulse (Heart Rate) 78 /min Invalid Interpretation Code [facility] Work Phone: [phone] QRS axis, electrocardiogram 2 deg Invalid Interpretation Code [facility] Work Phone: [phone] QRS Duration 114 ms Invalid Interpretation Code [facility] Work Phone: [phone] QRS duration, electrocardiogram 114 ms Invalid Interpretation Code [facility] Work Phone: [phone] QT Interval new path ms Invalid Interpretation Code [facility] Work Phone: [phone] QT interval, electrocardiogram new path ms Invalid Interpretation Code [facility] Work Phone: [phone] QTc [place] 419 ms Invalid Interpretation Code [facility] Work Phone: [phone] T [place] 90 deg Invalid Interpretation Code [facility] Work Phone: [phone] T wave axis, electrocardiogram 90 deg Invalid Interpretation Code [facility] Work Phone: [phone] Lab Report: Bedside Glucoseo n 11-13-2014 Glucose 152 mg/dL High 70-110 [facility] Work Phone: [phone] Glucose mass conc 152 mg/dL High 70-110 [facility] Work Phone: [phone] Lab Report: CBC-Complete Blo od Cnt No Diffon 11-03-2014 Erythrocyte distribution width Ratio (RBC) 14.0 % 11.6-14.6 [facility] Work Phone: [phone] Erythrocyte distribution width Ratio (RBC) 39.5 fL 35.1-43.9 [facility] Work Phone: [phone] Erythrocytes (RBC) 6.14 10*6/uL Invalid Interpretation Code 4.6-6.2 [facility] Work Phone: [phone] Hematocrit (HCT) 48.4 % Invalid Interpretation Code 40-54 [facility] Work Phone: [phone] Hematocrit Volume Fraction (Bld) 48.4 % 40-54 [facility] Work Phone: [phone] Hemoglobin (HGB) 15.3 g/dL Invalid Interpretation Code 13.0-16.5 [facility] Work Phone: [phone] MCH 24.9 pg Low 27.0-32.0 [facility] Work Phone: [phone] Entitic mass (RBC) 24.9 pg Low 27.0-32.0 [facility] Work Phone: [phone] MCHC 31.6 G/GL Low 32-36 [facility] Work Phone: [phone] MCHC mass conc (RBC) 31.6 G/GL Low 32-[address] [facility] Work Phone: [phone] MCV 78.8 fL Low 80-94 [facility] Work Phone: [phone] MCV Entitic volume (RBC) 78.8 fL Low 80-94 [facility] Work Phone: [phone] Platelet mean volume Entitic volume (Bld) 11.4 fL 6.2-12.0 [facility] Work Phone: [phone] Platelets 212 10*3/mm3 Invalid Interpretation Code 150-450 [facility] Work Phone: [phone] Platelets #/vol (Bld) 212 10*3/mm3 150-450 [facility] Work Phone: [phone] PMV by Luanne 11.4 fL Invalid Interpretation Code 6.2-12.0 [facility] Work Phone: [phone] RBC #/vol (Bld) 6.14 10*6/uL 4.6-6.2 [facility] Work Phone: [phone] RDW SD 39.5 fL Invalid Interpretation Code 35.1-43.9 [facility] Work Phone: [phone] RDW-CA 14.0 % Invalid Interpretation Code 11.6-14.6 [facility] Work Phone: [phone] red blood cell distribution width, size density 39.5 fL Invalid Interpretation Code 35.1-43.9 [facility] Work Phone: [phone] WBC #/vol (Bld) 8.4 10*3/uL 4.4-11.0 [facility] Work Phone: [phone] WBC (Leukocytes) 8.4 10*3/uL Invalid Interpretation Code 4.4-11.0 [facility] Work Phone: [phone] Lab Report: Partial Thrombop last Timeon 11-03-2014 aPTT 34.3 s Invalid Interpretation Code 24.1-36.2 [facility] Work Phone: [phone] Lab Report: Prothrombin Time w/INRon 11-03-2014 Coagulation tissue factor induced in platelet poor plasma 13.5 s Invalid Interpretation Code 11.7-14.9 [facility] Work Phone: [phone] INR Coag RelTime (PPP) 1.0 {INR} Invalid Interpretation Code [facility] Work Phone: [phone] INR in blood by coagulation 1.0 {INR} Invalid Interpretation Code [facility] Phone: [phone] Office Visiton 04-22-2014 cardiac risk group C Invalid Interpretation Code [facility] Work Phone: [phone] General cardiovascular disease 10Y risk [#] Ina.D'Agostmavis N/A Invalid Interpretation Code [facility] Work Phone: [phone] Office Visiton 03-19-2014 Protein mass conc yes [facility] Work Phone: [phone] Smoking cessation education (procedure) yes Invalid Interpretation Code [facility] Work Phone: [phone] Replaced Document: [employer] E CG Observationson 10-01-2013 Pulse (Heart Rate) 373 ms Invalid Interpretation Code [facility] Work Phone: [phone] [facility] Left ventricular Ejection fraction 35 % Invalid Interpretation Code [facility] Work Phone: [phone] Lab Report: UAon 09-20-2012 specific gravity, urine 1.010 Normal 1.002-1.030 [facility] Work Phone: [phone] Office Visiton 10-19-2011 BNP 43.1 pg/mL Invalid Interpretation Code [facility] Work Phone: [phone] Vital Signs Date Time Vital Sign Value Performing Clinician Facility 01-08-2025 10:30-0400 Body height 154.94 cm ROSINA [facility] [employer] Work Phone: [facility] 01-08-2025 10:30-0400 Body mass index (BMI) [Ratio] 35.3 kg/m2 [facility] [employer] Work Phone: [facility] 01-08-2025 10:30-0400 Body weight 84.82 kg ROSINA [facility] [employer] Work Phone: [facility] 01-08-2025 10:30-0400 Diastolic blood pressure 71 mm[Hg] ROSINA [facility] [employer] Work Phone: [facility] 01-08-2025 10:30-0400 Heart rate 68 /min ROSINA [facility] [employer] Work Phone: [facility] 01-08-2025 10:30-0400 Respiratory rate 18 /min ROSINA [facility] [employer] Work Phone: [facility] 01-08-2025 10:30-0400 Systolic blood pressure 127 mm[Hg] ROSINA [facility] [employer] Work Phone: [facility] 09-02-2024 07:55-0400 Body mass index (BMI) [Ratio] 36.1 kg/m2 [facility] [employer] Work Phone: [facility] 09-02-2024 07:55-0400 Body temperature 97.4 [degF] ROSINA [facility] [employer] Work Phone: [facility] 09-02-2024 07:55-0400 Body weight 86.63 kg ROSINA [facility] [employer] Work Phone: [facility] 09-02-2024 07:55-0400 Diastolic blood pressure 65 mm[Hg] ROSINA [facility] [employer] Work Phone: [facility] 09-02-2024 07:55-0400 Heart rate 75 /min ROSINA [facility] [employer] Work Phone: [facility] 09-02-2024 07:55-0400 Respiratory rate 18 /min ROSINA [facility] [employer] Work Phone: [facility] 09-02-2024 07:55-0400 SaO2% (BldA) [Mass fraction] 93 % [facility] [employer] Work Phone: [facility] 09-02-2024 07:55-0400 Systolic blood pressure 102 mm[Hg] ROSINA [facility] [employer] Work Phone: [facility] 07-10-2024 13:04-0500 Body height 154.9 cm Philip Blank MD Work Phone: [facility] 07-10-2024 13:04-0500 Body mass index (BMI) [Ratio] 36.81 kg/m2 Philip Blank MD Work Phone: [facility] 07-10-2024 13:04-0500 Body temperature 97.39 [degF] Philip Blank MD Work Phone: [facility] 07-10-2024 13:04-0500 Body weight 88.36 kg Philip Blank MD Work Phone: [facility] 07-10-2024 13:04-0500 Diastolic blood pressure 68 mm[Hg] Philip Blank MD Work Phone: [facility] 07-10-2024 13:04-0500 Heart rate 74 /min Philip Blank MD Work Phone: [facility] 07-10-2024 13:04-0500 SaO2% (BldA) [Mass fraction] 97 % Philip Blank MD Work Phone: [facility] 07-10-2024 13:04-0500 Systolic blood pressure 126 mm[Hg] Philip Blank MD Work Phone: [facility] 02-28-2024 13:07-0400 Body height 154.9 cm Kandi SHEIKH-C Work Phone: [employer] 02-28-2024 13:07-0400 Body mass index (BMI) [Ratio] 37.68 kg/m2 K[facility] Coldsnow PA-C [facility] 02-28-2024 13:07-0400 Body weight 90.45 kg Kandi Coldsnow PA-C Work Phone: [facility] [employer] 02-28-2024 13:07-0400 Diastolic blood pressure 76 mm[Hg] Kandi Coldsnow PA-C Work Phone: [facility] [employer] 02-28-2024 13:07-0400 Heart rate 98 /min Kandi Coldsnow PA-C [facility] 02-28-2024 13:07-0400 Systolic blood pressure 128 mm[Hg] Kandi Coldsnow PA-C Work Phone: [facility] [employer] 02-24-2024 23:51-0400 Diastolic Blood Pressure Non-Invasive 62 mm[Hg] DR GINA PLUMMER DO [facility] 02-24-2024 23:51-0400 Heart rate 71 /min DR GINA PLUMMER DO [facility] 02-24-2024 23:51-0400 Respiratory rate 18 /min DR GINA PLUMMER DO [facility] 02-24-2024 23:51-0400 Systolic Blood Pressure Non-Invasive 135 mm[Hg] DR GINA PLUMMER DO [facility] 02-24-2024 22:45-0400 Body temperature 98.06 [degF] DR GINA PLUMMER DO [facility] 02-24-2024 22:45-0400 Diastolic Blood Pressure Non-Invasive 62 mm[Hg] DR GINA PLUMMER DO [facility] 02-24-2024 22:45-0400 Heart rate 73 /min DR GINA PLUMMER DO [facility] 02-24-2024 22:45-0400 Respiratory rate 18 /min DR GINA PLUMMER DO [facility] 02-24-2024 22:45-0400 Systolic Blood Pressure Non-Invasive 139 mm[Hg] DR GINA PLUMMER DO [facility] 02-05-2024 22:07-0400 Diastolic Blood Pressure Non-Invasive 85 mm[Hg] DR ARVIND SADLER MD [facility] 02-05-2024 22:07-0400 Heart rate 83 /min DR ARVIND SADLER MD [facility] 02-05-2024 22:07-0400 Respiratory rate 18 /min DR ARVIND SADLER MD [facility] 02-05-2024 22:07-0400 Systolic Blood Pressure Non-Invasive 103 mm[Hg] DR ARVIND SADLER MD [facility] 02-05-2024 18:52-[address] ARVIND SADLER MD [facility] 02-05-2024 18:52-[address] ARVIND SADLER MD [facility] 02-05-2024 18:52-0400 Body temperature 101.48 [degF] DR ARVIND SADLER MD [facility] 02-05-2024 18:52-0400 Diastolic Blood Pressure Non-Invasive 71 mm[Hg] DR ARVIND SADLER MD [facility] 02-05-2024 18:52-0400 Heart rate 85 /min DR ARVIND SADLER MD [facility] 02-05-2024 18:52-0400 Respiratory rate 18 /min DR ARVIND SADLER MD [facility] 02-05-2024 18:52-0400 Systolic Blood Pressure Non-Invasive 127 mm[Hg] DR ARVIND SADLER MD [facility] 08-30-2023 08:13-0400 Body height 154.9 cm Andrea Gillis MD Work Phone: [facility] 08-30-2023 08:13-0400 Body mass index (BMI) [Ratio] 37.41 kg/m2 Andrea Gillis MD Work Phone: [facility] 08-30-2023 08:13-0400 Body weight 89.81 kg Andrea Gillis MD Work Phone: [facility] 08-30-2023 08:13-0400 Diastolic blood pressure 78 mm[Hg] Andrea Gillis MD Work Phone: [facility] 08-30-2023 08:13-0400 Heart rate 81 /min Andrea Gillis MD Work Phone: [facility] 08-30-2023 08:13-0400 SaO2% (BldA) [Mass fraction] 95 % Andrea Gillis MD Work Phone: [facility] 08-30-2023 08:13-0400 Systolic blood pressure 130 mm[Hg] Andrea Gillis MD Work Phone: [facility] 06-05-2023 15:05-0500 Body height 154.[address] Manuel Sandoval Work Phone: [facility] 06-05-2023 15:05-0500 Body mass index (BMI) [Ratio] 39.2 kg/m2 Dr. Manuel Sandoval Work Phone: [facility] 06-05-2023 15:05-0500 Body weight 94.[address] Manuel Sandoval Work Phone: [facility] 06-05-2023 15:05-0500 Diastolic blood pressure 70 mm[Hg] Dr. Manuel Sandoval Work Phone: [facility] 06-05-2023 15:05-0500 Heart rate 73 /min Dr. Manuel Sandoval Work Phone: [facility] 06-05-2023 15:05-0500 Respiratory rate 18 /min Dr. Manuel Sandoval Work Phone: [facility] 06-05-2023 15:05-0500 SaO2% (BldA) [Mass fraction] 92 % Dr. Manuel Sandoval Work Phone: [facility] 06-05-2023 15:05-0500 Systolic blood pressure 126 mm[Hg] Dr. Manuel Sandoval Work Phone: [facility] 05-24-2023 08:01-0500 Body mass index (BMI) [Ratio] 38.9 kg/m2 Dr. Manuel Sandoval Work Phone: [phone] [place] [address] 05-24-2023 08:01-0500 Body temperature 97.7 [degF] Dr. Manuel Sandoval Work Phone: [facility] 05-24-2023 08:01-0500 Body weight 93.[address] Manuel Sandoval Work Phone: [facility] 05-24-2023 08:01-0500 Diastolic blood pressure 69 mm[Hg] Dr. Manuel Sandoval Work Phone: [facility] 05-24-2023 08:01-0500 Heart rate 80 /min Dr. Manuel Sandoval Work Phone: [facility] 05-24-2023 08:01-0500 Respiratory rate 18 /min Dr. Manuel Sandoval Work Phone: [facility] 05-24-2023 08:01-0500 SaO2% (BldA) [Mass fraction] 91 % Dr. Manuel Sandoval Work Phone: [facility] 05-24-2023 08:01-0500 Systolic blood pressure 117 mm[Hg] Dr. Manuel Sandoval Work Phone: [facility] 01-11-2023 11:18-0400 Body height 154.[address] Manuel Sandoval Work Phone: [facility] 01-11-2023 11:18-0400 Body weight 93.[address] Manuel Sandoval Work Phone: [facility] 12-13-2022 06:55-0400 Body mass index (BMI) [Ratio] 38.9 kg/m2 Dr. Manuel Sandoval Work Phone: [facility] 11-16-2022 13:56-0400 Body height 154.[address] Manuel Sandoval Work Phone: [facility] 11-16-2022 13:56-0400 Body mass index (BMI) [Ratio] 38.9 kg/m2 Dr. Manuel Sandoval Work Phone: [facility] 11-16-2022 13:56-0400 Body temperature 97.2 [degF] Dr. Manuel Sandoval Work Phone: [facility] 11-16-2022 13:56-0400 Body weight 93.[address] Manuel Sandoval Work Phone: [facility] 11-16-2022 13:56-0400 Diastolic blood pressure 74 mm[Hg] Dr. Manuel Sandoval Work Phone: [facility] 11-16-2022 13:56-0400 Heart rate 86 /min Dr. Manuel Sandoval Work Phone: [facility] 11-16-2022 13:56-0400 Respiratory rate 18 /min Dr. Manuel Sandoval Work Phone: [facility] 11-16-2022 13:56-0400 SaO2% (BldA) [Mass fraction] 90 % Dr. Manuel Sandoval Work Phone: [facility] 11-16-2022 13:56-0400 Systolic blood pressure 137 mm[Hg] Dr. Manuel Sandoval Work Phone: [facility] 10-12-2022 10:05-0400 Body mass index (BMI) [Ratio] 40.4 kg/m2 Dr. Manuel Sandoval Work Phone: [facility] 10-12-2022 10:05-0400 Body weight 97.[address] Manuel Sandoval Work Phone: [facility] 10-12-2022 10:05-0400 Diastolic blood pressure 72 mm[Hg] Dr. Manuel Sandoval Work Phone: [facility] 10-12-2022 10:05-0400 Heart rate 81 /min Dr. Manuel Sandoval Work Phone: [facility] 10-12-2022 10:05-0400 Respiratory rate 16 /min Dr. Manuel Sandoval Work Phone: [facility] 10-12-2022 10:05-0400 Systolic blood pressure 125 mm[Hg] Dr. Manuel Sandoval Work Phone: [facility] 06-27-2022 10:21-0500 Body height 154.[address] Manuel Sandoval Work Phone: [facility] 06-27-2022 10:21-0500 Body mass index (BMI) [Ratio] 39.9 kg/m2 Dr. Manuel Sandoval Work Phone: [facility] 06-27-2022 10:21-0500 Body weight 95.[address] Manuel Sandoval Work Phone: [facility] 06-27-2022 10:21-0500 Diastolic blood pressure 79 mm[Hg] Dr. Manuel Sandoval Work Phone: [facility] 06-27-2022 10:21-0500 Heart rate 83 /min Dr. Manuel Sandoval Work Phone: [facility] 06-27-2022 10:21-0500 Respiratory rate 18 /min Dr. Manuel Sandoval Work Phone: [facility] 06-27-2022 10:21-0500 SaO2% (BldA) [Mass fraction] 94 % Dr. Manuel Sandoval Work Phone: [facility] 06-27-2022 10:21-0500 Systolic blood pressure 135 mm[Hg] Dr. Manuel Sandoval Work Phone: [facility] 06-07-2022 08:32-0500 Body height 154.[address] Manuel Sandoval Work Phone: [facility] 06-07-2022 08:32-0500 Body weight 98.[address] Manuel Sandoval Work Phone: [facility] 06-06-2022 07:21-0500 Body mass index (BMI) [Ratio] 40.8 kg/m2 Dr. Manuel Sandoval Work Phone: [phone] [address] 06-02-2022 08:56-0500 Body mass index (BMI) [Ratio] 38.7 kg/m2 Dr. Manuel Sandoval Work Phone: [phone] [place] [address] 06-02-2022 08:56-0500 Body temperature 98.1 [degF] Dr. Manuel Sandoval Work Phone: [facility] 06-02-2022 08:56-0500 Body weight 92.[address] Manuel Sandoval Work Phone: [facility] 06-02-2022 08:56-0500 Diastolic blood pressure 80 mm[Hg] Dr. Manuel Sandoval Work Phone: [facility] 06-02-2022 08:56-0500 Heart rate 94 /min Dr. Manuel Sandoval Work Phone: [facility] 06-02-2022 08:56-0500 Respiratory rate 16 /min Dr. Manuel Sandoval Work Phone: [facility] 06-02-2022 08:56-0500 SaO2% (BldA) [Mass fraction] 97 % Dr. Manuel Sandoval Work Phone: [facility] 06-02-2022 08:56-0500 Systolic blood pressure 117 mm[Hg] Dr. Manuel Sandoval Work Phone: [facility] 06-01-2022 13:45-0500 Body weight 93.[address] Manuel Sandoval Work Phone: [facility] 06-01-2022 13:45-0500 Heart rate 76 /min Dr. Manuel Sandoval Work Phone: [facility] 06-01-2022 13:45-0500 SaO2% (BldA) [Mass fraction] 94 % Dr. Manuel Sandoval Work Phone: [facility] 05-23-2022 13:34-0500 Body mass index (BMI) [Ratio] 40.8 kg/m2 Dr. Manuel Sandoval Work Phone: [facility] 05-23-2022 13:34-0500 Body temperature 97.6 [degF] Dr. Manuel Sandoval Work Phone: [facility] 05-23-2022 13:34-0500 Body weight 98.[address] Manuel Sandoval Work Phone: [facility] 05-23-2022 13:34-0500 Diastolic blood pressure 75 mm[Hg] Dr. Manuel Sandoval Work Phone: [facility] 05-23-2022 13:34-0500 Heart rate 79 /min Dr. Manuel Sandoval Work Phone: [facility] 05-23-2022 13:34-0500 Respiratory rate 18 /min Dr. Manuel Sandoval Work Phone: [facility] 05-23-2022 13:34-0500 SaO2% (BldA) [Mass fraction] 87 % Dr. Manuel Sandoval Work Phone: [facility] 05-23-2022 13:34-0500 Systolic blood pressure 136 mm[Hg] Dr. Manuel Sandoval Work Phone: [facility] 02-28-2022 10:39-0400 Body height 154.[address] Manuel Sandoval Work Phone: [facility] Work Phone: 02-28-2022 10:39-0400 Body mass index (BMI) [Ratio] 39.6 kg/m2 Dr. Manuel Sandoval Work Phone: [facility] 02-28-2022 10:39-0400 Body weight 95.[address] Manuel Sandoval Work Phone: [facility] 02-28-2022 10:39-0400 Diastolic blood pressure 71 mm[Hg] Dr. Manuel Sandoval Work Phone: [facility] 02-28-2022 10:39-0400 Heart rate 76 /min Dr. Manuel Sandoval Work Phone: [facility] 02-28-2022 10:39-0400 Respiratory rate 18 /min Dr. Manuel Sandoval Work Phone: [facility] 02-28-2022 10:39-0400 SaO2% (BldA) [Mass fraction] 94 % Dr. Manuel Sandoval Work Phone: [facility] 02-28-2022 10:39-0400 Systolic blood pressure 115 mm[Hg] Dr. Manuel Sandoval Work Phone: [facility] 11-17-2021 13:29-0400 Body mass index (BMI) [Ratio] 39.7 kg/m2 Dr. Manuel Sandoval Work Phone: [facility] Work Phone: 11-17-2021 13:29-0400 Body temperature 97.3 [degF] Dr. Manuel Sandoval Work Phone: [facility] Work Phone: 11-17-2021 13:29-0400 Body weight 95.[address] Manuel Sandoval Work Phone: [facility] Work Phone: 11-17-2021 13:29-0400 Diastolic blood pressure 71 mm[Hg] Dr. Manuel Sandoval Work Phone: [facility] Work Phone: 11-17-2021 13:29-0400 Heart rate 88 /min Dr. Manuel Sandoval Work Phone: [facility] Work Phone: 11-17-2021 13:29-0400 Respiratory rate 16 /min Dr. Manuel Sandoval Work Phone: [facility] Work Phone: 11-17-2021 13:29-0400 SaO2% (BldA) [Mass fraction] 93 % Dr. Manuel Sandoval Work Phone: [facility] Work Phone: 11-17-2021 13:29-0400 Systolic blood pressure 109 mm[Hg] Dr. Manuel Sandoval Work Phone: [facility] Work Phone: 09-01-2021 10:30-0400 Body height 154.[address] Manuel Sandoval Work Phone: [facility] Work Phone: 09-01-2021 10:30-0400 Body mass index (BMI) [Ratio] 39.2 kg/m2 Dr. Manuel Sandoval Work Phone: [facility] Work Phone: 09-01-2021 10:30-0400 Body weight 94.[address] Manuel Sandoval Work Phone: [facility] Work Phone: 09-01-2021 10:30-0400 Diastolic blood pressure 61 mm[Hg] Dr. Manuel Sandoval Work Phone: [facility] Work Phone: 09-01-2021 10:30-0400 Heart rate 77 /min Dr. Manuel Sandoval Work Phone: [facility] Work Phone: 09-01-2021 10:30-0400 Respiratory rate 16 /min Dr. Manuel Sandoval Work Phone: [facility] Work Phone: 09-01-2021 10:30-0400 Systolic blood pressure 102 mm[Hg] Dr. Manuel Sandoval Work Phone: [facility] Work Phone: 05-31-2021 08:33-0500 Body weight 92.[address] Manuel Sandoval Work Phone: [facility] Work Phone: 05-30-2021 06:20-0500 Body mass index (BMI) [Ratio] 38.7 kg/m2 Dr. Manuel aSndoval Work Phone: [facility] Work Phone: 05-26-2021 12:07-0500 Body temperature 97.3 [degF] Dr. Manuel Sandoval Work Phone: [facility] Work Phone: 05-26-2021 12:07-0500 Diastolic blood pressure 66 mm[Hg] Dr. Manuel Sandoval Work Phone: [facility] Work Phone: 05-26-2021 12:07-0500 Heart rate 93 /min Dr. Manuel Sandoval Work Phone: [facility] Work Phone: 05-26-2021 12:07-0500 Respiratory rate 18 /min Dr. Manuel Sandoval Work Phone: [facility] Work Phone: 05-26-2021 12:07-0500 SaO2% (BldA) [Mass fraction] 95 % Dr. Manuel Sandoval Work Phone: [facility] Work Phone: 05-26-2021 12:07-0500 Systolic blood pressure 123 mm[Hg] Dr. Manuel Sandoval Work Phone: [facility] Work Phone: 05-12-2021 07:53-0500 Body mass index (BMI) [Ratio] 38.7 kg/m2 Dr. Manuel Sandoval Work Phone: [facility] Work Phone: 05-12-2021 07:53-0500 Body weight 92.[address] Manuel Sandoval Work Phone: [facility] Work Phone: 05-12-2021 07:53-0500 Diastolic blood pressure 72 mm[Hg] Dr. Manuel Sandoval Work Phone: [facility] Work Phone: 05-12-2021 07:53-0500 Respiratory rate 18 /min Dr. Manuel Sandoval Work Phone: [facility] Work Phone: 05-12-2021 07:53-0500 Systolic blood pressure 108 mm[Hg] Dr. Manuel Sandoval Work Phone: [facility] Work Phone: 11-02-2020 12:40-0400 Body mass index (BMI) [Ratio] 38 kg/m2 Dr. Manuel Sandoval Work Phone: [facility] Work Phone: 10-25-2016 13:36-0400 BMI (Body Mass Index) 43.89 kg/m2 [facility] Work Phone: 10-25-2016 13:36-0400 BP Diastolic 68 mm[Hg] [facility] Work Phone: 10-25-2016 13:36-0400 BP Systolic 116 mm[Hg] [facility] Work Phone: 10-25-2016 13:36-0400 Height 157.48 cm [facility] Work Phone: 10-25-2016 13:36-0400 Pulse (Heart Rate) 72 /min [facility] Work Phone: 10-25-2016 13:36-0400 Respiratory Rate 20 /min [facility] Work Phone: 10-25-2016 13:36-0400 Weight 108.86 kg Kelsy Taylor RN [facility] Work Phone: 04-20-2016 13:26-0500 BMI (Body Mass Index) 43.53 kg/m2 [facility] Work Phone: 04-20-2016 13:26-0500 BP Diastolic 62 mm[Hg] [facility] Work Phone: 04-20-2016 13:26-0500 BP Systolic 130 mm[Hg] Harovidio Gonzalez [facility] Work Phone: 04-20-2016 13:26-0500 BSA (Body Surface Area) 2.06 m2 [facility] Work Phone: 04-20-2016 13:26-0500 Pulse (Heart Rate) 68 /min [facility] Work Phone: 04-20-2016 13:26-0500 Respiratory Rate 16 /min [facility] Work Phone: 04-20-2016 13:26-0500 Weight 107.96 kg [facility] Work Phone: 11-30-2014 13:11-0400 Heart rate 78 /min Kelsy Taylor RN [facility] Work Phone: 03-19-2014 13:14-0500 Body Temperature 98.8 [degF] [facility] Work Phone: 03-19-2014 13:14-0500 Height 157.48 cm [facility] Work Phone: 10-01-2013 13:56-0400 Heart rate 373 ms Kelsy Taylor RN [facility] Work Phone: Encounters Encounter Date Encounter Type Care Provider Facility Start: 02-19-2025 ambulatory ROSINA MAST Facility:[facility] Start: 01-13-2025 End: 01-13-2025 ambulatory ROSINA MAST UNDERWRITING ANALYST-COUPON REDEMPTION CLERK Facility:[facility] Start: 01-13-2025 End: 01-13-2025 Patient encounter procedure ROSINA MAST UNDERWRITING ANALYST-COUPON REDEMPTION CLERK [facility] Start: 01-08-2025 End: 01-08-[address] Muriel Pearson MD -[facility] Work Phone: Start: 01-08-2025 End: 01-08-2025 ambulatory ROSINA MAST HEAD OF RESEARCH & INSIGHTS Work Phone: [facility] Start: 12-30-2024 ambulatory ROSINA MAST UNDERWRITING ANALYST-COUPON REDEMPTION CLERK Fa cility:[facility] Start: 12-30-2024 End: 12-30-2024 ambulatory ROSINA MAST UNDERWRITING ANALYST-COUPON REDEMPTION CLERK Facility:[facility] Start: 12-30-2024 End: 12-30-2024 Patient encounter procedure ROSINA MAST UNDERWRITING ANALYST-COUPON REDEMPTION CLERK [facility] Start: 12-08-2024 End: 12-08-2024 Transcribe Orders Maureen Aragon COUPON REDEMPTION CLERK Work Phone: Referring Physician Comment on above: Encounter for screen ing colonoscopy (Primary Dx) Start: 11-19-2024 End: 11-19-2024 ambulatory ROSINA MAST HEAD OF RESEARCH & INSIGHTS Work Phone: -[facility] Start: 11-19-2024 End: 11-19-[address] Biju Champion MD -[facility] Work Phone: Start: 10-27-2024 End: 11-03-2024 Telephone encounter Kidney Txp Coordinators Work Phone: Transplant Center Comment on above: Follow Up Start: 09-02-2024 End: 09-02-2024 Patient encounter procedure Riya HOLLY -[facility] Work Phone: Start: 09-02-2024 End: 09-02-2024 ambulatory ROSINA MAST Facility:[facility] Start: 08-20-2024 End: 08-20-2024 ambulatory ROSINA MAST Facility:[facility] Start: 08-20-2024 End: 08-20-[address] Biju Champion MD [facility] Work Phone: Start: 07-10-2024 End: 07-10-2024 Office outpatient new 45 minutes Philip Blank MD Work Phone: [facility] Comment on above: ESRD (end stage bronson l disease) (Multi) (Primary Dx) Start: 07-10-2024 End: 07-10-2024 ambulatory PHILIP BLANK [facility] Start: 06-19-2024 End: 06-19-2024 ambulatory ROSINA MAST Facility:[facility] Start: 06-05-2024 End: 06-05-2024 ambulatory ROSINA MAST Facility:[facility] Start: 05-27-2024 End: 05-27-2024 ambulatory ROSINA MAST Facility:[facility] Start: 05-21-2024 End: 05-21-2024 ambulatory ROSINA MAST Facility:[facility] Start: 04-22-2024 End: 04-22-2024 Patient encounter status Card [facility] Start: 04-22-2024 End: 04-22-2024 Subsequent hospital visit by physician Card Lab Nuclear Camera [facility] Comment on above: Pre-operative cardio vascular examination [Z01.810] Start: 04-22-2024 End: 04-22-2024 Patient encounter status Echo [facility] Start: 04-22-2024 End: 04-22-2024 Subsequent hospital visit by physician Echo Lab [facility] Comment on above: Pre-operative cardio vascular examination [Z01.810] Start: 03-11-2024 End: 03-11-2024 Telephone encounter Chandra Jenkins 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 waste 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 Center Comment on above: Reminder Call Start: 03-07-2024 ambulatory ROSINA MAST Facility[facility] Start: 03-07-2024 End: 03-07-2024 ambulatory ROSINA MAST Facility:[facility] Start: 02-28-2024 End: 02-28-2024 Office outpatient new 45 minutes Kandi [facility] IDALMIS Work Phone: [facility] Endocrinology [facility] Comment on above: Type 2 diabetes ruth itus with hyperglycemia, with long-term current use of insulin (HCC) (Primary Dx); ESRD (end stage renal disease) on dialysis (HCC); Type 2 diabetes mellitus with hyperlipidemia (HCC) (HCC); Hypertension associated with type 2 diabetes mellitus (HCC) ([facility]); Class 2 severe obesity with serious comorbidity and body mass index (BMI) of 36.0 to 36.9 in adult, unspecified obesity type ([facility]); Type 2 diabetes mellitus with diabetic polyneuropathy, with long-term current use of insulin ([facility]) Start: 02-28-2024 End: 02-28-2024 ambulatory [facility] Start: 02-24-2024 End: 02-25-2024 Emergency department patient visit DR GINA PLUMMER DO [facility] Start: 02-20-2024 End: 02-21-2024 ambulatory ROSINA MAST Facility:[facility] Start: 02-19-2024 ambulatory ROSINA MAST [facility] Start: 02-19-2024 End: 02-19-2024 ambulatory ROSINA MAST Facility:[facility] Start: 02-05-2024 End: 02-05-2024 Emergency department patient visit DR ARVIND SADLER MD [facility] Start: 02-04-2024 End: 02-04-2024 Subsequent hospital visit by physician Rad External Film [facility] EXTERNAL [facility] Comment on above: Arrived Start: 02-04-2024 End: 02-04-2024 ambulatory [facility] Start: 12-13-2023 End: 12-13-2023 ambulatory ROSINA MAST UNDERWRITING ANALYST-COUPON REDEMPTION CLERK Facility:[facility] Start: 08-30-2023 End: 08-30-2023 Patient encounter procedure Andrea Gillis MD Work Phone: Cardiology Comment on above: 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 James Sandoval Work Phone: [facility] Work Phone: Start: 07-31-2023 Non-patient / Non-visit Dr. James Sandoval Work Phone: [facility] Start: 07-31-2023 End: 07-31-[address] Manuel Sandoval Work Phone: [facility] Work Phone: Start: 07-31-2023 End: 07-31-[address] Manuel Sandoval Work Phone: [facility]-Cardiovascula r Services Work Phone: Start: 07-24-2023 Telephone encounter [facility] Comment on above: Follow Up; Referral - Kidney Txp Start: 07-05-2023 End: 07-05-[address] Manuel Sandoval Work Phone: [facility] Work Phone: Start: 07-05-2023 End: 07-05-[address] Manuel Sandoval Work Phone: [facility]-Pulmonary Services/Neurology Work Phone: Start: 06-25-2023 Chart abstracting Chandra Jenkins solid waste 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 Center Comment on above: Informed Consent Start: 06-12-2023 End: 06-12-2023 ambulatory ROSINA MAST UNDERWRITING ANALYST-COUPON REDEMPTION CLERK Facility:[facility] Start: 06-12-2023 End: 06-12-2023 Patient encounter procedure ROSINA MAST UNDERWRITING ANALYST-COUPON REDEMPTION CLERK [facility] Start: 06-05-2023 End: 06-05-[address] Manuel Sandoval Work Phone: [facility] Work Phone: Start: 05-24-2023 End: 05-24-[address] Manuel Sandoval Work Phone: [facility] [place] Work Phone: Start: 04-24-2023 End: 04-24-2023 Patient encounter procedure Kidney Txp Coordinators Work Phone: Transplant Center Comment on above: Pre-transplant evalu ation for CKD (chronic kidney disease) (Primary Dx) Start: 04-24-2023 End: 04-24-2023 Patient encounter status Kidney Txp Coordinators Work Phone: [facility] Start: 03-08-2023 Telephone encounter [facility] Comment on above: Appointment (Sent Ap pt schedule to the Patient by Mail today. ) Start: 02-06-2023 Orders Only Rivka pearson PA-C Work Phone: Transplant Center Comment on above: Chronic renal failur e, stage 5 (HCC) (Primary Dx); Pre-transplant evaluation for kidney transplant Start: 02-06-2023 Patient encounter status Christy Dominguez PA-C Work Phone: [facility] Start: 01-11-2023 Non-patient / Non-visit Dr. James Sandoval Work Phone: [facility] Start: 01-11-2023 End: 01-11-2023 Admission to same day surgery center Dr. Manuel Sandoval Work Phone: [facility]-Truck Driver Helper/Special Procedures Work Phone: Start: 01-11-2023 End: 01-11-[address] Manuel Sandoval Work Phone: [facility] Work Phone: Start: 12-07-2022 End: 12-07-[address] Manuel Sandoval Work Phone: [facility] Work Phone: Start: 12-07-2022 End: 12-07-[address] Manuel Sandoval Work Phone: [facility]-Radiology, [place] Work Phone: Start: 12-06-2022 Telephone encounter [facility] Comment on above: Returning Patient's Call Start: 11-30-2022 End: 11-30-[address] Manuel Sandoval Work Phone: [facility] Work Phone: Start: 11-16-2022 End: 11-16-[address] Manuel Sandoval Work Phone: [facility]-Pulmonary Medicine [facility] Work Phone: Start: 11-14-2022 Telephone encounter [facility] Comment on above: Referral - Kidney Tx p Start: 10-12-2022 End: 10-12-[address] Manuel Sandoval Work Phone: [facility]-Laboratory Work Phone: Start: 10-12-2022 End: 10-12-[address] Manuel Sandoval Work Phone: [facility] Work Phone: Start: 09-27-2022 Non-patient / Non-visit Dr. James Sandoval Work Phone: [facility] Work Phone: Start: 08-08-2022 End: 08-08-[address] Manuel Sandoval Work Phone: [facility] Work Phone: Start: 08-08-2022 End: 08-08-[address] Manuel Sandoval Work Phone: [facility]-Laboratory Start: 06-27-2022 End: 06-27-[address] Manuel Sandoval Work Phone: [facility] Start: 06-07-2022 Non-patient / Non-visit Dr. James Sandoval Work Phone: [facility] Start: 06-07-2022 End: 06-07-2022 Admission to same day surgery center Dr. Manuel Sandoval Work Phone: [facility]-Truck Driver Helper/Special Procedures Start: 06-07-2022 End: 06-07-[address] Manuel Sandoval Work Phone: [facility] Work Phone: Start: 06-02-2022 End: 06-02-[address] Manuel Sandoval Work Phone: [facility]-Pulmonary Medicine [facility] Start: 06-02-2022 Non-patient / Non-visit Dr. James Sandoval Work Phone: [facility] Start: 06-01-2022 End: 06-01-[address] Manuel Sandoval Work Phone: [facility]-Pulmonary Services/Neurology Start: 05-23-2022 End: 05-23-[address] Manuel Sandoval Work Phone: [facility] Start: 03-17-2022 End: 03-17-[address] Manuel Sandoval Work Phone: [facility] Start: 02-28-2022 End: 02-28-[address] Manuel Sandoval Work Phone: [facility] Work Phone: Start: 02-28-2022 End: 02-28-[address] Manuel Sandoval Work Phone: [facility] Start: 12-07-2021 End: 12-07-[address] Manuel Sandoval Work Phone: [facility] Start: 11-17-2021 End: 11-17-[address] Manuel Sandoval [facility] Start: 09-06-2021 End: 09-06-[address] [facility]oval [facility] Start: 09-01-2021 End: 09-01-[address] Manuel Sandoval Work Phone: [facility] Start: 05-31-2021 Non-patient / Non-visit Dr. 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 Manuel Sandoval [facility] Start: 05-25-2021 End: 05-25-[address] Manuel Sandoval Work Phone: [facility] Start: 05-12-2021 End: 05-12-[address] Manuel Sandoval Work Phone: [facility] Procedures Date Procedure Procedure Detail Performing Clinician Start: 04-22-2024 Myocardial spect mul tiple studies Denise Albright MD Work Phone: Start: 04-22-2024 Echo tthrc r-t 2d w/wom-mode compl spec&colr d Denise Albright MD Work Phone: Start: 02-28-2024 Hemoglobin glycosyla gia a1c Kandi L Sara RAYGOZA Work Phone: Start: 02-04-2024 Study Interpretation of outside study Romy Roberts MD Work Phone: Start: 09-18-[address]23 [address] retinal eye exam DR ARVIND SADLER MD Comment on above: no retinopathy Start: 12-07-2022 Plain chest X-ray Dr. Kevin Sandoval Work Phone: Start: 02-28-2022 Plain chest X-ray Dr. Kevin Sandoval Work Phone: Start: 01-31-2017 End: 01-31-2017 Prgrmng dev eval implantable in persn 1 ld dflilliam Lucas MD Start: 01-31-2017 End: 01-31-2017 Icd device prog eval, 1 sngl Angel Lucas MD Start: 10-25-2016 End: 10-25-2016 Follow Up Appt 6 months Rebecca robles PA-C Work Phone: Start: 10-25-2016 End: 10-25-2016 Natriuretic peptide B [Mass/volume] in Blood Rebecca Santoyo PA-C Work Phone: Start: 10-25-2016 End: 10-25-2016 PFM Rebecca Santoyo PA-C Work Phone: Start: 10-25-2016 End: 10-25-2016 Prgrmng dev eval implantable in persn 1 ld giuseppe Lucas MD Start: 10-25-2016 End: 10-25-2016 BNP Rebecca Santoyo PA-C Work Phone: Start: 10-25-2016 End: 10-25-2016 Follow Up Appt 6 months Rebecca robles PA-C Work Phone: Start: 10-25-2016 End: 10-25-2016 Icd device prog eval, 1 sngl Angel Lucas MD Start: 10-25-2016 End: 10-25-2016 PFM Rebecca Santoyo PA-C Work Phone: Start: 07-24-2016 End: 10-05-2016 Follow Up Appt 3 months Angel Lucas MD Start: 07-24-2016 End: 10-05-2016 Pacer Clinic Angel Lucas MD Start: 07-24-2016 End: 07-24-2016 Prgrmng dev eval implantable in persn 1 ld dfb Angel Lucas MD Start: 07-24-2016 End: 10-05-2016 Follow Up Appt 3 months Angel Lucas MD Start: 07-24-2016 End: 07-24-2016 Icd device prog eval, 1 sngl Angel Lucas MD Start: 07-24-2016 End: 10-05-2016 Pacer Clinic Angel Lucas MD Start: 04-20-2016 End: 10-05-2016 Chest x-ray Angel Lucas MD Start: 04-20-2016 End: 04-20-2016 Device Interrogation Angel Lucas MD Start: 04-20-2016 End: 10-05-2016 Follow Up Appt 3 months Angel Lucas MD Start: 04-20-2016 End: 04-20-2016 Follow Up Appt 6 months Angel Lucas MD Start: 04-20-2016 End: 04-20-2016 MMM Angel Lucas MD Start: 04-20-2016 End: 10-05-2016 Pacer Clinic Angel Lucas MD Start: 04-20-2016 End: 04-20-2016 Prgrmng dev eval implantable in persn 1 ld dfb Angel Lucas MD Start: 04-20-2016 End: 04-20-2016 Dietary management education, guidance, and counseling Kelsy Taylor RN Start: 04-20-2016 End: 10-05-2016 Chest x-ray Angel Lucas MD Start: 04-20-2016 End: 04-20-2016 Device Interrogation Angel Lucas MD Start: 04-20-2016 End: 10-05-2016 Follow Up Appt 3 months Angel Lucas MD Start: 04-20-2016 End: 04-20-2016 Follow Up Appt 6 months Angel Lucas MD Start: 04-20-2016 End: 04-20-2016 Icd device prog eval, 1 sngl Angel Lucas MD Start: 04-20-2016 End: 04-20-2016 MMM Angel Lucas MD Start: 04-20-2016 End: 10-05-2016 Pacer Clinic Angel Lucas MD Start: 01-28-2016 End: 01-31-2016 Arthrocentesis aspir&/inj major jt/bursa w/o us Jens Toro Work Phone: Start: 01-28-2016 End: 01-31-2016 Drain/inject, joint/bursa Jens Toro Work Phone: Start: 01-20-2016 End: 10-05-2016 Follow Up Appt 3 months Angel Lucas MD Start: 01-20-2016 End: 10-05-2016 Pacer Clinic Angel Lucas MD Start: 01-20-2016 End: 01-20-2016 Prgrmng dev eval implantable in persn 1 ld dfb Angel Lucas MD Start: 01-20-2016 End: 10-05-2016 Follow Up Appt 3 months Angel Lucas MD Start: 01-20-2016 End: 01-20-2016 Icd device prog eval, 1 sngl Angel Lucas MD Start: 01-20-2016 End: 10-05-2016 Pacer Clinic Angel Lucas MD Start: 01-11-2016 End: 01-11-2016 *Hepatic Function Panel Angel Lucas MD Start: 01-11-2016 End: 01-11-2016 Lipid 1996 panel - Serum or Plasma Angel Lucas MD Start: 01-11-2016 End: 01-11-2016 *Hepatic Function Panel Angel Lucas MD Start: 01-11-2016 End: 01-11-2016 Lipid panel [AGGREGATE] Angel Lucas MD Start: 12-28-2015 End: 01-11-2016 Thyrotropin [Units/volume] in Serum or Plasma Angel Lucas MD Start: 12-28-2015 End: 01-11-2016 Thyroxine (T4) [Mass/volume] in Serum or Plasma Angel Lucas MD Start: 12-28-2015 End: 01-11-2016 Thyroid stimulating hormone (TSH) Angel Lucas MD Start: 12-28-2015 End: 01-11-2016 Thyroxine (T4) Angel Lucas MD Start: 11-14-2015 End: 11-14-2015 Thyrotropin [Units/volume] in Serum or Plasma Angel Lucas MD Start: 11-14-2015 End: 11-14-2015 Thyroxine (T4) [Mass/volume] in Serum or Plasma Angel Lucas MD Start: 11-14-2015 End: 11-14-2015 Thyroid stimulating hormone (TSH) Angel Lucas MD Start: 11-14-2015 End: 11-14-2015 Thyroxine (T4) Angel Lucas MD Start: 10-18-2015 End: 10-05-2016 Follow Up Appt 3 months Angel Lucas MD Start: 10-18-2015 End: 10-18-2015 Follow Up Appt 6 months Rebecca robles PA-C Work Phone: Start: 10-18-2015 End: 10-05-2016 Pacer Clinic Angel Lucas MD Start: 10-18-2015 End: 10-18-2015 PFM Rebecca Santoyo PA-C Work Phone: Start: 10-18-2015 End: 10-18-2015 Prgrmng dev eval implantable in persn 1 ld dfb Angel Lucas MD Start: 10-18-2015 End: 10-05-2016 Follow Up Appt 3 months Angel Lucas MD Start: 10-18-2015 End: 10-18-2015 Follow Up Appt 6 months Rebecca robles, IDALMIS Work Phone: Start: 10-18-2015 End: 10-18-2015 Icd device prog eval, 1 sngl Angel Lucas MD Start: 10-18-2015 End: 10-05-2016 Pacer Clinic Angel Lucas MD Start: 10-18-2015 End: 10-18-2015 PF Rebecca Santoyo PA-C Work Phone: Start: 07-22-2015 End: 09-29-2015 Follow Up Appt 3 months Bacilio Armendariz Start: 07-22-2015 End: 09-29-2015 Pacer Clinic Biju Champion MD Start: 07-22-2015 End: 07-22-2015 Prgrmng dev eval implantable in persn 1 ld dfb Biju Champion MD Start: 07-22-2015 End: 09-29-2015 Follow Up Appt 3 months Bacilio Armendariz Start: 07-22-2015 End: 07-22-2015 Icd device prog eval, 1 sngl Biju Champion MD Start: 07-22-2015 End: 09-29-2015 Pacer Clinic Biju Champion MD Start: 05-05-2015 End: 05-13-2015 Chest x-ray Angel Lucas MD Start: 05-05-2015 End: 05-13-2015 Chest x-ray Angel Lucas MD Start: 04-21-2015 End: 10-11-2015 *Hepatic Function Panel Angel Lucas MD Start: 04-21-2015 End: 09-29-2015 Follow Up Appt 3 months Angel Lucas MD Start: 04-21-2015 End: 04-21-2015 Follow Up Appt 6 months Angel Lucas MD Start: 04-21-2015 End: 10-11-2015 Lipid 1996 panel - Serum or Plasma Angel Lucas MD Start: 04-21-2015 End: 04-21-2015 MMM Angel Lucas MD Start: 04-21-2015 End: 09-29-2015 Pacer Clinic Angel Lucas MD Start: 04-21-2015 End: 04-22-2015 Prgrmng dev eval implantable in persn 1 ld dfb Angel Lucas MD Start: 04-21-2015 End: 09-29-2015 Pulmonary Function Test - complete Angel Lucas MD Start: 04-21-2015 End: 10-11-2015 Thyrotropin [Units/volume] in Serum or Plasma Angel Lucas MD Start: 04-21-2015 End: 10-11-2015 Thyroxine (T4) [Mass/volume] in Serum or Plasma Angel Lucas MD Start: 04-21-2015 End: 10-11-2015 *Hepatic Function Panel Angel Lucas MD Start: 04-21-2015 End: 09-29-2015 Follow Up Appt 3 months Angel Lucas MD Start: 04-21-2015 End: 04-21-2015 Follow Up Appt 6 months Angel Lucas MD Start: 04-21-2015 End: 04-22-2015 Icd device prog eval, 1 sngl Angel Lucas MD Start: 04-21-2015 End: 10-11-2015 Lipid panel [AGGREGATE] Angel Lucas MD Start: 04-21-2015 End: 04-21-2015 MMM Angel Lucas MD Start: 04-21-2015 End: 09-29-2015 Pacer Clinic Angel Lucas MD Start: 04-21-2015 End: 09-29-2015 Pulmonary Function Test - complete Angel Lucas MD Start: 04-21-2015 End: 10-11-2015 Thyroid stimulating hormone (TSH) Angel Lucas MD Start: 04-21-2015 End: 10-11-2015 Thyroxine (T4) Angel Lucas MD Start: 04-13-2015 End: 09-29-2015 *Hepatic Function Panel Angel Lucas MD Start: 04-13-2015 End: 09-29-2015 Lipid 1996 panel - Serum or Plasma Angel Lucas MD Start: 04-13-2015 End: 09-29-2015 *Hepatic Function Panel Angel Lucas MD Start: 04-13-2015 End: 09-29-2015 Lipid panel [AGGREGATE] Angel Lucas MD Start: 01-25-2015 End: 04-21-2015 Follow Up Appt 3 months Angel Lucas MD Start: 01-25-2015 End: 04-21-2015 Pacer Clinic Angel Lucas MD Start: 01-25-2015 End: 01-25-2015 Prgrmng dev eval implantable in persn 1 ld dfb Angel Lucas MD Start: 01-25-2015 End: 04-21-2015 Follow Up Appt 3 months Angel Lucas MD Start: 01-25-2015 End: 01-25-2015 Icd device prog eval, 1 sngl Angel Lucas MD Start: 01-25-2015 End: 04-21-2015 Pacer Clinic Angel Lucas MD Start: 11-30-2014 End: 11-30-2014 Ecg routine ecg w/least 12 lds w/i&r Angel Lucas MD Start: 11-30-2014 End: 09-29-2015 Follow Up Appt 2 months Angel Lucas MD Start: 11-30-2014 End: 09-29-2015 Pacer Clinic Angel Lucas MD Start: 11-30-2014 End: 11-30-2014 Prgrmng dev eval implantable in persn 1 ld dfb Angel Lucas MD Start: 11-30-2014 End: 11-30-2014 Electrocardiogram, complete Angel Lucas MD Start: 11-30-2014 End: 09-29-2015 Follow Up Appt 2 months Angel Lucas MD Start: 11-30-2014 End: 11-30-2014 Icd device prog eval, 1 sngl Angel Lucas MD Start: 11-30-2014 End: 09-29-2015 Pacer Clinic Angel Lucas MD Start: 11-16-2014 End: 09-29-2015 *BMP Angel Lucas MD Start: 11-16-2014 End: 09-29-2015 *BMP Angel Lucas MD Start: 11-03-2014 End: 11-03-2014 Nurse, Teaching, Wound Check (no charge) Angel Lucas MD Start: 11-03-2014 End: 11-03-2014 Nurse, Teaching, Wound Check (no charge) Angel Lucas MD Start: 11-02-2014 End: 11-03-2014 *BMP Angel Lucas MD Start: 11-02-2014 End: 11-03-2014 aPTT in Platelet poor plasma by Coagulation assay Angel Lucas MD Start: 11-02-2014 End: 11-03-2014 CBC W Auto Differential panel - Blood Angel Lucas MD Start: 11-02-2014 End: 11-30-2014 Chest x-ray Angel Lucas MD Start: 11-02-2014 End: 11-03-2014 INR in Platelet poor plasma by Coagulation assay Angel Lucas MD Start: 11-02-2014 End: 11-30-2014 Left Heart Cath W/Grafts Angel mar MD Start: 11-02-2014 End: 11-03-2014 *BMP Angel Lucas MD Start: 11-02-2014 End: 11-03-2014 aPTT Angel Lucas MD Start: 11-02-2014 End: 11-03-2014 CBC W Auto Differential panel - Blood Angel Lucas MD Start: 11-02-2014 End: 11-30-2014 Chest x-ray Angel Lucas MD Start: 11-02-2014 End: 11-03-2014 Coagulation factor induced.INR assay in platelet poor plasma Angel Lucas MD Start: 11-02-2014 End: 11-30-2014 Left Heart Cath W/Grafts Angel mar MD Start: 10-21-2014 End: 10-22-2014 Documentation of current medications Rebecca Santoyo PA-C Work Phone: Start: 10-21-2014 End: 10-21-2014 Ecg routine ecg w/least 12 lds w/i&r Rebecca Santoyo PA-C Work Phone: Start: 10-21-2014 End: 09-29-2015 Follow Up Appt 3 months Rebecca robles PA-C Work Phone: Start: 10-21-2014 End: 10-21-2014 Follow Up Appt 6 months Rebecca robles PA-C Work Phone: Start: 10-21-2014 End: 11-30-2014 Nuclear stress test -Lexiscan Rebecca Santoyo PA-C Work Phone: Start: 10-21-2014 End: 09-29-2015 Pacer Clinic Rebecca Santoyo PA-C Work Phone: Start: 10-21-2014 End: 10-21-2014 PFM Rebecca Santoyo PA-C Work Phone: Start: 10-21-2014 End: 10-22-2014 Prgrmng dev eval implantable in persn 1 ld dfb Rebecca Santoyo PA-C Work Phone: Start: 10-21-2014 End: 10-22-2014 Documentation of current medications Rebecca Santoyo PA-C Work Phone: Start: 10-21-2014 End: 10-21-2014 Electrocardiogram, complete Rebecca Santoyo PA-C Work Phone: Start: 10-21-2014 End: 09-29-2015 Follow Up Appt 3 months Rebecca robles PA-C Work Phone: Start: 10-21-2014 End: 10-21-2014 Follow Up Appt 6 months Rebecca robles PA-C Work Phone: Start: 10-21-2014 End: 10-22-2014 Icd device prog eval, 1 sngl Rebecca Santoyo PA-C Work Phone: Start: 10-21-2014 End: 11-30-2014 Nuclear stress test -Lexiscan Rebecca Santoyo PA-C Work Phone: Start: 10-21-2014 End: 09-29-2015 Pacer Clinic Rebecca Santoyo PA-C Work Phone: Start: 10-21-2014 End: 10-21-2014 PFM Rebecca Santoyo PA-C Work Phone: Start: 10-05-2014 End: 10-12-2014 *Hepatic Function Panel Angel Lucas MD Start: 10-05-2014 End: 10-12-2014 Lipid 1996 panel - Serum or Plasma Angel Lucas MD Start: 10-05-2014 End: 10-12-2014 *Hepatic Function Panel Angel Lucas MD Start: 10-05-2014 End: 10-12-2014 Lipid panel [AGGREGATE] Angel Lucas MD Start: 07-22-2014 End: 10-07-2014 Follow Up Appt 3 months Rebecca robles PA-C Work Phone: Start: 07-22-2014 End: 10-07-2014 Pacer Clinic Rebecca Santoyo PA-C Work Phone: Start: 07-22-2014 End: 07-22-2014 Prgrmng dev eval implantable in persn 1 ld dfb Rebecca Santoyo PA-C Work Phone: Start: 07-22-2014 End: 10-07-2014 Follow Up Appt 3 months Rebecca robles PA-C Work Phone: Start: 07-22-2014 End: 07-22-2014 Icd device prog eval, 1 sngl Rebecca Santoyo PA-C Work Phone: Start: 07-22-2014 End: 10-07-2014 Pacer Clinic Rebecca Santoyo PA-C Work Phone: Start: 04-22-2014 End: 10-07-2014 *Hepatic Function Panel Angel Lucas MD Start: 04-22-2014 End: 04-22-2014 Device Interrogation Angel Lucas MD Start: 04-22-2014 End: 10-07-2014 Follow Up Appt 3 months Angel Lucas MD Start: 04-22-2014 End: 04-22-2014 Follow Up Appt 6 months Angel Lucas MD Start: 04-22-2014 End: 10-07-2014 Lipid 1996 panel - Serum or Plasma Angel Lucas MD Start: 04-22-2014 End: 04-22-2014 MMM Angel Lucas MD Start: 04-22-2014 End: 10-07-2014 Pacer Clinic Angel Lucas MD Start: 04-22-2014 End: 04-22-2014 Prgrmng dev eval implantable in persn 1 ld dfb Angel Lucas MD Start: 04-22-2014 End: 10-07-2014 *Hepatic Function Panel Angel Lucas MD Start: 04-22-2014 End: 04-22-2014 Device Interrogation Angel Lucas MD Start: 04-22-2014 End: 10-07-2014 Follow Up Appt 3 months Angel Lucas MD Start: 04-22-2014 End: 04-22-2014 Follow Up Appt 6 months Angel Lucas MD Start: 04-22-2014 End: 04-22-2014 Icd device prog eval, 1 sngl Angel Lucas MD Start: 04-22-2014 End: 10-07-2014 Lipid panel [AGGREGATE] Angel Lucas MD Start: 04-22-2014 End: 04-22-2014 MMM Angel Lucas MD Start: 04-22-2014 End: 10-07-2014 Pacer Clinic Angel Lucas MD Start: 03-19-2014 End: 04-13-2014 Colonoscopy flx dx w/collj spec when pfrmd Joana Hernandez Work Phone: Start: 03-19-2014 Colonoscopy [employer] Work Phone: Start: 03-19-2014 End: 04-13-2014 Diagnostic colonoscopy Joana Hernandez Work Phone: Start: 01-01-2014 End: 03-11-2014 Follow Up Appt 3 months Angel Lucas MD Start: 01-01-2014 End: 03-11-2014 Pacer Clinic Angle Lucas MD Start: 01-01-2014 End: 01-01-2014 Prgrmng dev eval implantable in persn 1 ld dfb Angel Lucas MD Start: 01-01-2014 End: 03-11-2014 Follow Up Appt 3 months Angel Lucas MD Start: 01-01-2014 End: 03-11-2014 Icd device prog eval, 1 sngl Angel Lucas MD Start: 01-01-2014 End: 03-11-2014 Pacer Clinic Angel Lucas MD Start: 10-01-2013 End: 10-01-2013 Follow Up Appt 3 months Bacilio Armendariz Start: 10-01-2013 End: 10-01-2013 Follow Up Appt 6 months Rebecca robles PA-C Work Phone: Start: 10-01-2013 End: 10-01-2013 Pacer Clinic Biju Champion MD Start: 10-01-2013 End: 10-01-2013 PFM Rebecca Santoyo PA-C Work Phone: Start: 10-01-2013 End: 10-01-2013 Prgrmng dev eval implantable in persn 1 ld dfb Biju Champion MD Start: 10-01-2013 End: 10-01-2013 Follow Up Appt 3 months Bacilio Armendariz Start: 10-01-2013 End: 10-01-2013 Follow Up Appt 6 months Rebecca robles PA-C Work Phone: Start: 10-01-2013 End: 10-01-2013 Icd device prog eval, 1 sngl Biju Champion MD Start: 10-01-2013 End: 10-01-2013 Pacer Clinic Biju Champion MD Start: 10-01-2013 End: 10-01-2013 PFM Rebecca Santoyo PA-C Work Phone: Start: 09-24-2013 End: 04-14-2014 *Hepatic Function Panel Angel Lucas MD Start: 09-24-2013 End: 04-14-2014 Lipid 1996 panel - Serum or Plasma Angel Lucas MD Start: 09-24-2013 End: 04-14-2014 *Hepatic Function Panel Angel Lucas MD Start: 09-24-2013 End: 04-14-2014 Lipid panel [AGGREGATE] Angel Lucas MD Start: 09-04-2013 End: 09-24-2013 *Hepatic Function Panel Rebecca robles PA-C Work Phone: Start: 09-04-2013 End: 09-24-2013 Lipid 1996 panel - Serum or Plasma Rebecca Santoyo PA-C Work Phone: Start: 09-04-2013 End: 09-24-2013 *Hepatic Function Panel Rebecca robles PA-C Work Phone: Start: 09-04-2013 End: 09-24-2013 Lipid panel [AGGREGATE] Rebecca robles PA-C Work Phone: Start: 07-02-2013 End: 09-23-2013 Follow Up Appt 3 months Angel Lucas MD Start: 07-02-2013 End: 09-23-2013 Pacer Clinic Angel Lucas MD Start: 07-02-2013 End: 07-02-2013 Prgrmng dev eval implantable in persn 1 ld dfb Angel Lucas MD Start: 07-02-2013 End: 09-23-2013 Follow Up Appt 3 months Angel Lucas MD Start: 07-02-2013 End: 07-02-2013 Icd device prog eval, 1 sngl Angel Lucas MD Start: 07-02-2013 End: 09-23-2013 Pacer Clinic Angel Lucas MD Start: 03-27-2013 End: 09-23-2013 *Hepatic Function Panel Angel Lucas MD Start: 03-27-2013 End: 09-23-2013 Follow Up Appt 3 months Angel Lucas MD Start: 03-27-2013 End: 09-23-2013 Follow Up Appt 6 months Angel Lucas MD Start: 03-27-2013 End: 09-23-2013 Lipid 1996 panel - Serum or Plasma Angel Lucas MD Start: 03-27-2013 End: 09-23-2013 MMM Angel Lucas MD Start: 03-27-2013 End: 09-23-2013 Pacer Clinic Angel Lucas MD Start: 03-27-2013 End: 03-27-2013 Prgrmng dev eval implantable in persn 1 ld dfb Angel Lucas MD Start: 03-27-2013 End: 09-23-2013 *Hepatic Function Panel Angel Lucas MD Start: 03-27-2013 End: 09-23-2013 Follow Up Appt 3 months Angel Lucas MD Start: 03-27-2013 End: 09-23-2013 Follow Up Appt 6 months Angel Lucas MD Start: 03-27-2013 End: 09-23-2013 Icd device prog eval, 1 sngl Angel Lucas MD Start: 03-27-2013 End: 09-23-2013 Lipid panel [AGGREGATE] Angel Lucas MD Start: 03-27-2013 End: 09-23-2013 MMM Angel Lucas MD Start: 03-27-2013 End: 09-23-2013 Pacer Clinic Angel Lucas MD Start: 02-04-2013 End: 03-11-2013 *Hepatic Function Panel Rebecca robles PA-C Work Phone: Start: 02-04-2013 End: 03-11-2013 Lipid 1996 panel - Serum or Plasma Rebecca Santoyo PA-C Work Phone: Start: 02-04-2013 End: 03-11-2013 *Hepatic Function Panel Rebecca robles PA-C Work Phone: Start: 02-04-2013 End: 03-11-2013 Lipid panel [AGGREGATE] Rebecca robles PA-C Work Phone: Start: 10-07-2012 End: 09-23-2013 Follow Up Appt 3 months Angel Lucas MD Start: 10-07-2012 End: 10-07-2012 Nurse, Teaching, Wound Check (no charge) Angel Lucas MD Start: 10-07-2012 End: 09-23-2013 Pacer Clinic Angel Lucas MD Start: 10-07-2012 End: 09-23-2013 Follow Up Appt 3 months Angel Lucas MD Start: 10-07-2012 End: 10-07-2012 Nurse, Teaching, Wound Check (no charge) Angel Lucas MD Start: 10-07-2012 End: 09-23-2013 Pacer Clinic Angel Lucas MD Start: 09-20-2012 End: 09-20-2012 *BMP Angel Lucas MD Start: 09-20-2012 End: 09-20-2012 *UA - Urinalysis w/o Micro Angel Lucas MD Start: 09-20-2012 End: 09-20-2012 CBC W Auto Differential panel - Blood Angel Lucas MD Start: 09-20-2012 End: 09-20-2012 INR in Platelet poor plasma by Coagulation assay Angel Lucas MD Start: 09-20-2012 End: 09-20-2012 *BMP Angel Lucas MD Start: 09-20-2012 End: 09-20-2012 *UA - Urinalysis w/o Micro Angel Lucas MD Start: 09-20-2012 End: 09-20-2012 CBC W Auto Differential panel - Blood Angel Lucas MD Start: 09-20-2012 End: 09-20-2012 Coagulation factor induced.INR assay in platelet poor plasma Angel Lucas MD Start: 09-09-2012 End: 09-23-2013 Chest x-ray Angel Lucas MD Start: 09-09-2012 End: 09-09-2012 Device Interrogation Angel Lucas MD Start: 09-09-2012 End: 09-09-2012 Ecg routine ecg w/least 12 lds w/i&r Angel Lucas MD Start: 09-09-2012 End: 09-09-2012 Follow Up Appt 3 months Angel Lucas MD Start: 09-09-2012 End: 09-09-2012 Follow Up Appt 6 months Angel Lucas MD Start: 09-09-2012 End: 09-23-2013 Pacemaker Generator Change Angel Lucas MD Start: 09-09-2012 End: 09-09-2012 Pacer Clinic Angel Lucas MD Start: 09-09-2012 End: 09-09-2012 PFM Angel Lucas MD Start: 09-09-2012 End: 09-09-2012 Prgrmng dev eval implantable in persn 1 ld dfb Angel Lucas MD Start: 09-09-2012 End: 09-23-2013 Coagulation factor induced.INR assay in platelet poor plasma Angel Lucas MD Start: 09-09-2012 End: 09-09-2012 Device Interrogation Angel Lucas MD Start: 09-09-2012 End: 09-09-2012 Electrocardiogram, complete Angel Lucas MD Start: 09-09-2012 End: 09-09-2012 Follow Up Appt 3 months Angel Lucas MD Start: 09-09-2012 End: 09-09-2012 Follow Up Appt 6 months Angel Lucas MD Start: 09-09-2012 End: 09-09-2012 Icd device prog eval, 1 sngl Angel Lucas MD Start: 09-09-2012 End: 09-23-2013 Pacemaker Generator Change Angel Lucas MD Start: 09-09-2012 End: 09-09-2012 Pacer Clinic Angel Lucas MD Start: 09-09-2012 End: 09-09-2012 PFM Angel Lucas MD Start: 08-05-2012 End: 08-08-2012 *Hepatic Function Panel Angel Lucas MD Start: 08-05-2012 End: 08-08-2012 Lipid 1996 panel - Serum or Plasma Angel Lucas MD Start: 08-05-2012 End: 08-08-2012 *Hepatic Function Panel Angel Lucas MD Start: 08-05-2012 End: 08-08-2012 Lipid panel [AGGREGATE] Angel Lucas MD Start: 02-16-2012 End: 09-05-2012 *BMP Angel Lucas MD Start: 02-16-2012 End: 03-06-2012 *Hepatic Function Panel Angel Lucas MD Start: 02-16-2012 End: 02-16-2012 Follow Up Appt 6 months Angel Lucas MD Start: 02-16-2012 End: 03-06-2012 Lipid 1996 panel - Serum or Plasma Angel Lucas MD Start: 02-16-2012 End: 09-05-2012 *BMP Angel Lucas MD Start: 02-16-2012 End: 03-06-2012 *Hepatic Function Panel Angel Lucas MD Start: 02-16-2012 End: 02-16-2012 Follow Up Appt 6 months Angel Lucas MD Start: 02-16-2012 End: 03-06-2012 Lipid panel [AGGREGATE] Angel Lucas MD Start: 01-11-2012 End: 03-06-2012 *Hepatic Function Panel Angel Lucas MD Start: 01-11-2012 End: 03-06-2012 Lipid 1996 panel - Serum or Plasma Angel Lucas MD Start: 01-11-2012 End: 03-06-2012 *Hepatic Function Panel Angel Lucas MD Start: 01-11-2012 End: 03-06-2012 Lipid panel [AGGREGATE] Angel Lucas MD Start: 10-19-2011 End: 11-20-2011 *BMP Angel Lucas MD Start: 10-19-2011 End: 11-20-2011 Chest x-ray Angel Lucas MD Start: 10-19-2011 End: 11-20-2011 Echocardiography Angel Lucas MD Start: 10-19-2011 End: 10-19-2011 eRx Transmitted during this visit (Medicare only) Angel Lucas MD Start: 10-19-2011 End: 09-05-2012 Follow Up Appt 3 months Angel Lucas MD Start: 10-19-2011 End: 11-20-2011 Natriuretic peptide B [Mass/volume] in Blood Angel Lucas MD Start: 10-19-2011 End: 11-20-2011 *BMP Angel Lucas MD Start: 10-19-2011 End: 11-20-2011 BNP Angel Lucas MD Start: 10-19-2011 End: 09-05-2012 Chest x-ray Angel Lucas MD Start: 10-19-2011 End: 11-20-2011 Echocardiography Angel Lucas MD Start: 10-19-2011 End: 10-19-2011 eRx Transmitted during this visit (Medicare only) Angel Lucas MD Start: 10-19-2011 End: 09-05-2012 Follow Up Appt 3 months Angel Lucas MD Start: 08-02-2010 Implantation of auto matic cardiac defibrillator IMPLANTATION OF DEFIBRILLATOR, HX OF Kelsy Taylor RN Start: 02-04-2003 History of coronary artery bypass grafting Aortocoronary bypass status Dr. 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 Plan of Treatment Date Care Activity Detail Author Start: 03-07-2030 Evaluation and manag ement of inpatient 03/07/2030 6:00 AM [place] [id number] [address] Department [place] [address] [facility] Work Phone: Start: 04-24-2028 Prostate specific an tigen measurement Prostate Cancer Screening Discussion [facility] Start: 02-27-2027 Diabetes Screening Diabetes Screenin [facility] Start: 04-29-2026 Pneumococcal Vaccine : 65+ Years (3 of 3 - PPSV23 or PCV20) Pneumococcal Vaccine: 65+ Years (3 of 3 - PPSV23 or PCV20) [facility] Start: 04-24-2026 Diabetes Screening Diabetes Screenin [facility] Start: 09-17-2025 Glaucoma screening Diabetes: R etinopathy Screening [facility] Start: 02-27-2025 Diabetic foot examination Diabetes: Foot Exam [facility] Start: 02-27-2025 Hemoglobin A1c measurement Jacqueline betes: Hemoglobin A1C [facility] Start: 02-12-2025 Pneumococcal Vaccine : 65+ (4 of 4 - PPSV23 or PCV20) Pneumococcal Vaccine: 65+ (4 of 4 - PPSV23 or PCV20) [facility] Start: 01-05-2025 Influenza vaccination [facility] Start: 05-07-2024 Advance Directive Discussion Advance Directive Discussion [facility] Start: 05-07-2024 Medicare Advantage A nnual Wellness Visit Medicare Advantage Annual Wellness Visit [facility] Start: 03-19-2024 Screening for malign ant neoplasm of colon [facility] Start: 01-06-2024 COVID-19 Vaccine ( season) COVID-19 Vaccine () [facility] Start: 01-06-2024 COVID-19 Vaccine () COVID-19 Vaccine () [facility] Start: 01-06-2024 Covid-19 Vaccine () Covid-19 Vaccine () [facility] Start: 01-06-2024 Influenza vaccination Influenza Vacc ine (#1) [facility] Start: 05-07-2023 Advance Directive Discussion Advance Directive Discussion [facility] Start: 05-07-2023 Behavioral Health Screening Behavioral Health Screening [facility] Start: 05-07-2023 Depression Assessment Depression Ass essment [facility] Start: 02-13-2023 End: 03-07-2024 Ct abdomen & pelvis w/o contrast material CT ABD/PEL WO IVCON Radiology Routine Chronic renal failure, stage 5 (HCC) Pre-transplant evaluation for kidney transplant Expected: 02/13/2023, Expires: 03/07/2024 [facility] Work Phone: Comment on above: Expected: 02/13/2023 , Expires: 03/07/2024 Start: 01-11-2023 [facility] Start: 01-05-2023 Covid-19 Vaccine ( season) Covid-19 Vaccine () [facility] Start: 01-05-2023 Influenza vaccination Influenza Vacc ine (#1) [facility] Start: 05-07-2022 Advance Directive Discussion Advance Directive Discussion [facility] Start: 05-07-2022 Depression Assessment Depression Ass essment [facility] Start: 01-10-2021 Lipid panel [facility] Start: 05-24-2017 End: 05-24-2017 Appointment Appointment [facility] Work Phone: Start: 01-31-2017 End: 01-31-2017 Follow Up Appt 3 months Follow Up Appt 3 months [facility] Work Phone: Start: 01-31-2017 End: 01-31-[address] [facility] [address] [facility] Work Phone: Start: 01-31-2017 End: 01-31-2017 Appointment Appointment [facility] Work Phone: Start: 01-31-2017 End: 01-31-2017 Follow Up Appt 3 months Follow Up Appt 3 months [facility] Work Phone: Start: 01-31-2017 End: 01-31-[address] [facility] Work Phone: Start: 01-10-2017 Lipid panel Lipid Panel [facility] Start: 2016 Hepatitis B Vaccine (1 of 3 - Risk 3-dose series) Hepatitis B Vaccine (1 of 3 - Risk 3-dose series) [facility] Start: 2016 Hepatitis B Vaccines (1 of 3 - Risk 3-dose series) Hepatitis B Vaccines (1 of 3 - Risk 3-dose series) [facility] Start: 2016 RSV High Risk: (Elde rly (60+) or Population) (1 - Risk 60-74 years 1-dose series) RSV High Risk: (Elderly (60+) or Population) (1 - Risk 60-74 years 1-dose series) [facility] Start: 2016 RSV Immunization for Adults (1 - Risk 60-74 years 1-dose series) RSV Immunization for Adults (1 - Risk 60-74 years 1-dose series) [facility] Start: 2016 RSV patient s and/or patients aged 60+ years (1 - 1-dose 60+ series) RSV patients and/or patients aged 60+ years (1 - 1-dose 60+ series) [facility] Start: 2016 RSV Vaccine (1 - 1-d ose 60+ series) RSV Vaccine (1 - 1-dose 60+ series) [facility] Start: 2016 RSV Vaccine (1 - Ris k 60-74 years 1-dose series) RSV Vaccine (1 - Risk 60-74 years 1-dose series) [facility] Start: 10-25-2016 End: 10-25-2016 BNP *Brain Natriuretic Peptide BNP [facility] [place] [facility] Work Phone: Start: 10-25-2016 End: 10-25-2016 Follow Up Appt 3 months Follow Up Appt 3 months [facility] Work Phone: Start: 10-25-2016 End: 10-25-2016 Follow Up Appt 6 months Follow Up Appt 6 months [facility] Work Phone: Start: 10-25-2016 End: 10-25-2016 Pacer Clinic [facility] [place] Work Phone: Start: 10-25-2016 End: 10-25-2016 PFM PFM [facility] Work Phone: Start: 10-25-2016 End: 10-25-2016 Appointment Appointment [facility] Work Phone: Start: 10-25-2016 End: 10-25-2016 BNP *Brain Natriuretic Peptide BNP [facility] Work Phone: Start: 10-25-2016 End: 10-25-2016 Follow Up Appt 3 months Follow Up Appt 3 months [facility] Work Phone: Start: 10-25-2016 End: 10-25-2016 Follow Up Appt 6 months Follow Up Appt 6 months [facility] Work Phone: Start: 10-25-2016 End: 10-25-2016 Pacer Clinic [facility] Work Phone: Start: 10-25-2016 End: 10-25-2016 PFM PFM [facility] [place] [facility] Work Phone: Start: 07-24-2016 End: 10-05-2016 Follow Up Appt 3 months Follow Up Appt 3 months [facility] Work Phone: Start: 07-24-2016 End: 10-05-2016 Pacer Clinic [facility] Work Phone: Start: 07-24-2016 End: 10-05-2016 Follow Up Appt 3 months Follow Up Appt 3 months [facility] Work Phone: Start: 07-24-2016 End: 10-05-2016 Pacer Clinic [facility] Work Phone: Start: 07-10-2016 End: 01-13-2016 *Hepatic Function Panel *Hepatic Function Panel [facility] Work Phone: Start: 07-10-2016 End: 01-13-2016 Lipid panel [AGGREGATE] *Lipid Profile CC PCP [facility] Work Phone: Start: 07-10-2016 End: 01-13-2016 Thyroid stimulating hormone (TSH) *TSH [facility] Work Phone: Start: 07-10-2016 End: 01-13-2016 Thyroxine (T4) *T4 (Total) [facility] Work Phone: Start: 07-10-2016 End: 01-13-2016 *Hepatic Function Panel *Hepatic Function Panel [facility] Work Phone: Start: 07-10-2016 End: 01-13-2016 Lipid panel [AGGREGATE] *Lipid Profile CC PCP [facility] Work Phone: Start: 07-10-2016 End: 01-13-2016 Thyroid stimulating hormone (TSH) *TSH [facility] Work Phone: Start: 07-10-2016 End: 01-13-2016 Thyroxine (T4) *T4 (Total) [facility] Work Phone: Start: 04-20-2016 End: 10-05-2016 Chest x-ray X-Ray, Chest, PA & Lateral [facility] Work Phone: Start: 04-20-2016 End: 04-20-2016 Device Interrogation Device Interrogation [facility] Work Phone: Start: 04-20-2016 End: 10-05-2016 Follow Up Appt 3 months Follow Up Appt 3 months [facility] Work Phone: Start: 04-20-2016 End: 04-20-2016 Follow Up Appt 6 months Follow Up Appt 6 months [facility] Work Phone: Start: 04-20-2016 End: 04-20-2016 MMM MMM [facility] Work Phone: Start: 04-20-2016 End: 10-05-2016 Pacer Clinic Pacer Clinic [facility] Work Phone: Start: 04-20-2016 End: 04-20-2016 Pulmonary Function Test - complete Pulmonary Function Test - complete [facility] Work Phone: Start: 04-20-2016 End: 10-05-2016 Chest x-ray X-Ray, Chest, PA & Lateral [facility] Work Phone: Start: 04-20-2016 End: 04-20-2016 Device Interrogation Device Interrogation [facility] Work Phone: Start: 04-20-2016 End: 10-05-2016 Follow Up Appt 3 months Follow Up Appt 3 months [facility] Work Phone: Start: 04-20-2016 End: 04-20-2016 Follow Up Appt 6 months Follow Up Appt 6 months [facility] Work Phone: Start: 04-20-2016 End: 04-20-2016 MMM MMM [facility] Work Phone: Start: 04-20-2016 End: 10-05-2016 Pacer Clinic Pacer Clinic [facility] Work Phone: Start: 04-20-2016 End: 04-20-2016 Pulmonary Function Test - complete Pulmonary Function Test - complete [facility] Work Phone: Start: 03-01-2016 End: 03-01-2016 Physical Therapy General Physical Therapy [facility], [address] [place] [address], [id number] [facility] Work Phone: Start: 03-01-2016 End: 03-01-2016 Physical Therapy General Physical Therapy [facility], [address] [place] [address], [id number] [facility] Work Phone: Start: 01-20-2016 End: 10-05-2016 Follow Up Appt 3 months Follow Up Appt 3 months [facility] Work Phone: Start: 01-20-2016 End: 10-05-2016 Pacer Clinic Pacer Clinic [facility] Work Phone: Start: 01-20-2016 End: 10-05-2016 Follow Up Appt 3 months Follow Up Appt 3 months [facility] Work Phone: Start: 01-20-2016 End: 10-05-2016 Pacer Clinic Pacer Clinic [facility] Work Phone: Start: 01-11-2016 End: 01-11-2016 *Hepatic Function Panel *Hepatic Function Panel [facility] Work Phone: Start: 01-11-2016 End: 01-11-2016 Lipid panel [AGGREGATE] *Lipid Profile CC PCP [facility] Work Phone: Start: 01-11-2016 End: 01-11-2016 *Hepatic Function Panel *Hepatic Function Panel [facility] Work Phone: Start: 01-11-2016 End: 01-11-2016 Lipid panel [AGGREGATE] *Lipid Profile CC PCP [facility] Work Phone: Start: 12-28-2015 End: 01-11-2016 Thyroid stimulating hormone (TSH) *TSH [facility] Work Phone: Start: 12-28-2015 End: 01-11-2016 Thyroxine (T4) *T4 (Total) [facility] Work Phone: Start: 12-28-2015 End: 01-11-2016 Thyroid stimulating hormone (TSH) *TSH [facility] Work Phone: Start: 12-28-2015 End: 01-11-2016 Thyroxine (T4) *T4 (Total) [facility] Work Phone: Start: 11-15-2015 End: 11-14-2015 Thyroid stimulating hormone (TSH) *TSH [facility] Work Phone: Start: 11-15-2015 End: 11-14-2015 Thyroxine (T4) *T4 (Total) [facility] Work Phone: Start: 11-15-2015 End: 11-14-2015 Thyroid stimulating hormone (TSH) *TSH [facility] Work Phone: Start: 11-15-2015 End: 11-14-2015 Thyroxine (T4) *T4 (Total) [facility] Work Phone: Start: 10-18-2015 End: 10-05-2016 Follow Up Appt 3 months Follow Up Appt 3 months [facility] Work Phone: Start: 10-18-2015 End: 10-18-2015 Follow Up Appt 6 months Follow Up Appt 6 months [facility] Work Phone: Start: 10-18-2015 End: 10-05-2016 Pacer Clinic [facility] Work Phone: Start: 10-18-2015 End: 10-18-2015 PFM PFM [facility] Work Phone: Start: 10-18-2015 End: 10-05-2016 Follow Up Appt 3 months Follow Up Appt 3 months [facility] Work Phone: Start: 10-18-2015 End: 10-18-2015 Follow Up Appt 6 months Follow Up Appt 6 months [facility] Work Phone: Start: 10-18-2015 End: 10-05-2016 Pacer Clinic [facility] Work Phone: Start: 10-18-2015 End: 10-18-2015 PFM PFM [facility] Work Phone: Start: 07-22-2015 End: 09-29-2015 Follow Up Appt 3 months Follow Up Appt 3 months [facility] Work Phone: Start: 07-22-2015 End: 09-29-2015 Pacer Clinic Pac[facility] Work Phone: Start: 07-22-2015 End: 09-29-2015 Follow Up Appt 3 months Follow Up Appt 3 months [facility] Work Phone: Start: 07-22-2015 End: 09-29-2015 Pacer Clinic Pacer Clinic [facility] Work Phone: Start: 05-05-2015 End: 05-13-2015 Chest x-ray X-Ray, Chest, PA & Lateral [facility] Work Phone: Start: 05-05-2015 End: 05-13-2015 Chest x-ray X-Ray, Chest, PA & Lateral [facility] Work Phone: Start: 04-21-2015 End: 10-11-2015 *Hepatic Function Panel *Hepatic Function Panel [facility] Work Phone: Start: 04-21-2015 End: 09-29-2015 Follow Up Appt 3 months Follow Up Appt 3 months [facility] Work Phone: Start: 04-21-2015 End: 04-21-2015 Follow Up Appt 6 months Follow Up Appt 6 months [facility] Work Phone: Start: 04-21-2015 End: 10-11-2015 Lipid panel [AGGREGATE] *Lipid Profile CC PCP [facility] Work Phone: Start: 04-21-2015 End: 04-21-2015 MMM MMM [facility] Work Phone: Start: 04-21-2015 End: 09-29-2015 Pacer Clinic [facility] Work Phone: Start: 04-21-2015 End: 04-21-2015 Pulmonary Function Test - complete Pulmonary Function Test - complete [facility] Work Phone: Start: 04-21-2015 End: 10-11-2015 Thyroid stimulating hormone (TSH) *TSH [facility] Work Phone: Start: 04-21-2015 End: 10-11-2015 Thyroxine (T4) *T4 (Total) [facility] Work Phone: Start: 04-21-2015 End: 10-11-2015 *Hepatic Function Panel *Hepatic Function Panel [facility] Work Phone: Start: 04-21-2015 End: 09-29-2015 Follow Up Appt 3 months Follow Up Appt 3 months [facility] Work Phone: Start: 04-21-2015 End: 04-21-2015 Follow Up Appt 6 months Follow Up Appt 6 months [facility] Work Phone: Start: 04-21-2015 End: 10-11-2015 Lipid panel [AGGREGATE] *Lipid Profile CC PCP [facility] Work Phone: Start: 04-21-2015 End: 04-21-2015 MMM MMM [facility] Work Phone: Start: 04-21-2015 End: 09-29-2015 Pacer Clinic Pac[facility] Work Phone: Start: 04-21-2015 End: 04-21-2015 Pulmonary Function Test - complete Pulmonary Function Test - complete [facility] Work Phone: Start: 04-21-2015 End: 10-11-2015 Thyroid stimulating hormone (TSH) *TSH [facility] Work Phone: Start: 04-21-2015 End: 10-11-2015 Thyroxine (T4) *T4 (Total) [facility] Work Phone: Start: 04-13-2015 End: 09-29-2015 *Hepatic Function Panel *Hepatic Function Panel [facility] Work Phone: Start: 04-13-2015 End: 09-29-2015 Lipid panel [AGGREGATE] *Lipid Profile CC PCP [facility] Work Phone: Start: 04-13-2015 End: 09-29-2015 *Hepatic Function Panel *Hepatic Function Panel [facility] Work Phone: Start: 04-13-2015 End: 09-29-2015 Lipid panel [AGGREGATE] *Lipid Profile CC PCP [facility] [place] Work Phone: Start: 03-19-2015 Screening for malign ant neoplasm of colon [facility] Start: 01-25-2015 End: 04-21-2015 Follow Up Appt 3 months Follow Up Appt 3 months [facility] Work Phone: Start: 01-25-2015 End: 04-21-[address] [facility] [address] [facility] [place] Work Phone: Start: 01-25-2015 End: 04-21-2015 Follow Up Appt 3 months Follow Up Appt 3 months [facility] Work Phone: Start: 01-25-2015 End: 04-21-[address] [facility] [facility] [employer] Work Phone: Start: 11-30-2014 End: 11-30-2014 Ecg routine ecg w/least 12 lds w/i&r EKG (In office) [facility] Work Phone: Start: 11-30-2014 End: 09-29-2015 Follow Up Appt 2 months Follow Up Appt 2 months [facility] Work Phone: Start: 11-30-2014 End: 09-29-[address] [facility] [address] [facility] [place] Work Phone: Start: 11-30-2014 End: 11-30-2014 Electrocardiogram, complete EKG (In office) [employer] Work Phone: Start: 11-30-2014 End: 09-29-2015 Follow Up Appt 2 months Follow Up Appt 2 months [facility] Work Phone: Start: 11-30-2014 End: 09-29-[address] [facility] [address] [facility] [place] Work Phone: Start: 11-16-2014 End: 09-29-2015 *BMP *BMP [employer] Work Phone: Start: 11-16-2014 End: 09-29-2015 *BMP *BMP [facility] Work Phone: Start: 11-02-2014 End: 11-03-2014 *BMP *BMP [facility] Work Phone: Start: 11-02-2014 End: 11-03-2014 aPTT *PTT-Partial Thromboplastin Time [facility] Work Phone: Start: 11-02-2014 End: 11-03-2014 CBC W Auto Differential panel - Blood *CBC without Diff [facility] Work Phone: Start: 11-02-2014 End: 11-30-2014 Chest x-ray X-Ray, Chest, PA & Lateral [facility] Work Phone: Start: 11-02-2014 End: 11-03-2014 INR Coag RelTime (PPP) *PT/INR [facility] Work Phone: Start: 11-02-2014 End: 11-03-2014 Left Heart Cath W/Grafts Left Heart Cath W/Grafts [facility] Work Phone: Start: 11-02-2014 End: 11-03-2014 *BMP *BMP [facility] Work Phone: Start: 11-02-2014 End: 11-03-2014 aPTT *PTT-Partial Thromboplastin Time [facility] Work Phone: Start: 11-02-2014 End: 11-03-2014 aPTT Coag time (PPP) *PTT-Partial Thromboplastin Time [facility] Work Phone: Start: 11-02-2014 End: 11-03-2014 CBC W Auto Differential panel - Blood *CBC without Diff [facility] Work Phone: Start: 11-02-2014 End: 11-30-2014 Chest x-ray X-Ray, Chest, PA & Lateral [facility] Work Phone: Start: 11-02-2014 End: 11-03-2014 Coagulation factor induced.INR assay in platelet poor plasma *PT/INR [facility] Work Phone: Start: 11-02-2014 End: 11-03-2014 Left Heart Cath W/Grafts Left Heart Cath W/Grafts [facility] [place] Work Phone: Start: 10-21-2014 End: 10-21-2014 Ecg routine ecg w/least 12 lds w/i&r EKG (In office) [facility] [place] Work Phone: Start: 10-21-2014 End: 09-29-2015 Follow Up Appt 3 months Follow Up Appt 3 months [facility] Work Phone: Start: 10-21-2014 End: 10-21-2014 Follow Up Appt 6 months Follow Up Appt 6 months [facility] Work Phone: Start: 10-21-2014 End: 11-30-2014 Nuclear stress test -Lexiscan Nuclear stress test -Lexiscan [employer] Work Phone: Start: 10-21-2014 End: 09-29-2015 Pacer Clinic [facility] Clinic [facility] [place] Work Phone: Start: 10-21-2014 End: 10-21-2014 PFM PFM [employer] Work Phone: Start: 10-21-2014 End: 10-21-2014 Electrocardiogram, complete EKG (In office) [employer] Work Phone: Start: 10-21-2014 End: 09-29-2015 Follow Up Appt 3 months Follow Up Appt 3 months [facility] [place] Work Phone: Start: 10-21-2014 End: 10-21-2014 Follow Up Appt 6 months Follow Up Appt 6 months [facility] [employer] Work Phone: Start: 10-21-2014 End: 11-30-2014 Nuclear stress test -Lexiscan Nuclear stress test -Lexiscan [facility] [place] Work Phone: Start: 10-21-2014 End: 09-29-2015 Pacer Clinic [facility] [place] Work Phone: Start: 10-21-2014 End: 10-21-2014 PFM PFM [facility] Work Phone: Start: 10-05-2014 End: 10-12-2014 *Hepatic Function Panel *Hepatic Function Panel [facility] Work Phone: Start: 10-05-2014 End: 10-12-2014 Lipid panel [AGGREGATE] *Lipid Profile CC PCP [facility] Work Phone: Start: 10-05-2014 End: 10-12-2014 *Hepatic Function Panel *Hepatic Function Panel [facility] Work Phone: Start: 10-05-2014 End: 10-12-2014 Lipid panel [AGGREGATE] *Lipid Profile CC PCP [facility] Work Phone: Start: 07-22-2014 End: 10-07-2014 Follow Up Appt 3 months Follow Up Appt 3 months [facility] Work Phone: Start: 07-22-2014 End: 10-07-2014 Pacer Clinic Pacer Clinic [facility] Work Phone: Start: 07-22-2014 End: 10-07-2014 Follow Up Appt 3 months Follow Up Appt 3 months [facility] Work Phone: Start: 07-22-2014 End: 10-07-2014 Pacer Clinic [facility] Work Phone: Start: 04-22-2014 End: 10-07-2014 *Hepatic Function Panel *Hepatic Function Panel [facility] Work Phone: Start: 04-22-2014 End: 04-22-2014 Device Interrogation Device Interrogation [facility] Work Phone: Start: 04-22-2014 End: 10-07-2014 Follow Up Appt 3 months Follow Up Appt 3 months [facility] Work Phone: Start: 04-22-2014 End: 04-22-2014 Follow Up Appt 6 months Follow Up Appt 6 months [facility] Work Phone: Start: 04-22-2014 End: 10-07-2014 Lipid panel [AGGREGATE] *Lipid Profile CC PCP [facility] Work Phone: Start: 04-22-2014 End: 04-22-2014 MMM MMM [facility] Work Phone: Start: 04-22-2014 End: 10-07-2014 Pacer Clinic Pacer Clinic [facility] Work Phone: Start: 04-22-2014 End: 10-07-2014 *Hepatic Function Panel *Hepatic Function Panel [facility] Work Phone: Start: 04-22-2014 End: 04-22-2014 Device Interrogation Device Interrogation [facility] Work Phone: Start: 04-22-2014 End: 10-07-2014 Follow Up Appt 3 months Follow Up Appt 3 months [facility] Work Phone: Start: 04-22-2014 End: 04-22-2014 Follow Up Appt 6 months Follow Up Appt 6 months [facility] Work Phone: Start: 04-22-2014 End: 10-07-2014 Lipid panel [AGGREGATE] *Lipid Profile CC PCP [facility] Work Phone: Start: 04-22-2014 End: 04-22-2014 MMM MMM [facility] Work Phone: Start: 04-22-2014 End: 10-07-2014 Pacer Clinic Pacer Clinic [facility] Work Phone: Start: 03-19-2014 End: 04-13-2014 Colonoscopy flx dx w/collj spec when pfrmd Colonoscopy [facility] Work Phone: Start: 03-19-2014 End: 04-13-2014 Diagnostic colonoscopy Colonoscopy [facility] Work Phone: Start: 01-01-2014 End: 03-11-2014 Follow Up Appt 3 months Follow Up Appt 3 months [facility] Work Phone: Start: 01-01-2014 End: 03-11-2014 Pacer Clinic Pacer Clinic [facility] Work Phone: Start: 01-01-2014 End: 03-11-2014 Follow Up Appt 3 months Follow Up Appt 3 months [facility] Work Phone: Start: 01-01-2014 End: 03-11-2014 Pacer Clinic Pacer Clinic [facility] Work Phone: Start: 10-01-2013 End: 10-01-2013 Follow Up Appt 3 months Follow Up Appt 3 months [facility] Work Phone: Start: 10-01-2013 End: 10-01-2013 Follow Up Appt 6 months Follow Up Appt 6 months [facility] Work Phone: Start: 10-01-2013 End: 10-01-2013 Pacer Clinic Pacer [facility] Work Phone: Start: 10-01-2013 End: 10-01-2013 PFM PF [facility] Work Phone: Start: 10-01-2013 End: 10-01-2013 Follow Up Appt 3 months Follow Up Appt 3 months [facility] Work Phone: Start: 10-01-2013 End: 10-01-2013 Follow Up Appt 6 months Follow Up Appt 6 months [facility] Work Phone: Start: 10-01-2013 End: 10-01-2013 Pacer Clinic Pacer Clinic [facility] Work Phone: Start: 10-01-2013 End: 10-01-2013 PFM PFM [facility] Work Phone: Start: 09-24-2013 End: 04-14-2014 *Hepatic Function Panel *Hepatic Function Panel [facility] Work Phone: Start: 09-24-2013 End: 04-14-2014 Lipid panel [AGGREGATE] *Lipid Profile CC PCP [facility] Work Phone: Start: 09-24-2013 End: 04-14-2014 *Hepatic Function Panel *Hepatic Function Panel [facility] Work Phone: Start: 09-24-2013 End: 04-14-2014 Lipid panel [AGGREGATE] *Lipid Profile CC PCP [facility] Work Phone: Start: 09-04-2013 End: 09-24-2013 *Hepatic Function Panel *Hepatic Function Panel [facility] Work Phone: Start: 09-04-2013 End: 09-24-2013 Lipid panel [AGGREGATE] *Lipid Profile CC PCP [facility] Work Phone: Start: 09-04-2013 End: 09-24-2013 *Hepatic Function Panel *Hepatic Function Panel [facility] Work Phone: Start: 09-04-2013 End: 09-24-2013 Lipid panel [AGGREGATE] *Lipid Profile CC PCP [facility] Work Phone: Start: 07-02-2013 End: 09-23-2013 Follow Up Appt 3 months Follow Up Appt 3 months [facility] Work Phone: Start: 07-02-2013 End: 09-23-2013 Pacer Clinic Pacer Clinic [facility] Work Phone: Start: 07-02-2013 End: 09-23-2013 Follow Up Appt 3 months Follow Up Appt 3 months [facility] Work Phone: Start: 07-02-2013 End: 09-23-2013 Pacer Clinic Pacer Clinic [facility] Work Phone: Start: 03-27-2013 End: 09-23-2013 *Hepatic Function Panel *Hepatic Function Panel [facility] Work Phone: Start: 03-27-2013 End: 09-23-2013 Follow Up Appt 3 months Follow Up Appt 3 months [facility] Work Phone: Start: 03-27-2013 End: 09-23-2013 Follow Up Appt 6 months Follow Up Appt 6 months [facility] Work Phone: Start: 03-27-2013 End: 09-23-2013 Lipid panel [AGGREGATE] *Lipid Profile CC PCP [facility] Work Phone: Start: 03-27-2013 End: 09-23-2013 MMM MMM [facility] Work Phone: Start: 03-27-2013 End: 09-23-2013 Pacer Clinic Pacer Clinic [facility] Work Phone: Start: 03-27-2013 End: 09-23-2013 *Hepatic Function Panel *Hepatic Function Panel [facility] Work Phone: Start: 03-27-2013 End: 09-23-2013 Follow Up Appt 3 months Follow Up Appt 3 months [facility] Work Phone: Start: 03-27-2013 End: 09-23-2013 Follow Up Appt 6 months Follow Up Appt 6 months [facility] Work Phone: Start: 03-27-2013 End: 09-23-2013 Lipid panel [AGGREGATE] *Lipid Profile CC PCP [facility] Work Phone: Start: 03-27-2013 End: 09-23-2013 MMM MMM [facility] Work Phone: Start: 03-27-2013 End: 09-23-2013 Pacer Clinic Pacer Clinic [facility] Work Phone: Start: 02-04-2013 End: 03-11-2013 *Hepatic Function Panel *Hepatic Function Panel [facility] Work Phone: Start: 02-04-2013 End: 03-11-2013 Lipid panel [AGGREGATE] *Lipid Profile [facility] Work Phone: Start: 02-04-2013 End: 03-11-2013 *Hepatic Function Panel *Hepatic Function Panel [facility] Work Phone: Start: 02-04-2013 End: 03-11-2013 Lipid panel [AGGREGATE] *Lipid Profile [facility] Work Phone: Start: 10-07-2012 End: 09-23-2013 Follow Up Appt 3 months Follow Up Appt 3 months [facility] Work Phone: Start: 10-07-2012 End: 09-23-2013 Pacer Clinic Pacer Clinic [facility] Work Phone: Start: 10-07-2012 End: 09-23-2013 Follow Up Appt 3 months Follow Up Appt 3 months [facility] Work Phone: Start: 10-07-2012 End: 09-23-2013 Pacer Clinic Pacer Clinic [facility] Work Phone: Start: 09-20-2012 End: 09-20-2012 *BMP *BMP [facility] Work Phone: Start: 09-20-2012 End: 09-20-2012 *UA - Urinalysis w/o Micro *UA - Urinalysis w/o Micro [facility] Work Phone: Start: 09-20-2012 End: 09-20-2012 CBC W Auto Differential panel - Blood *CBC without Diff [facility] Work Phone: Start: 09-20-2012 End: 09-20-2012 INR Coag RelTime (PPP) *PT/INR [facility] Work Phone: Start: 09-20-2012 End: 09-20-2012 *BMP *BMP [facility] Work Phone: Start: 09-20-2012 End: 09-20-2012 *UA - Urinalysis w/o Micro *UA - Urinalysis w/o Micro [facility] Work Phone: Start: 09-20-2012 End: 09-20-2012 CBC W Auto Differential panel - Blood *CBC without Diff [facility] Work Phone: Start: 09-20-2012 End: 09-20-2012 Coagulation factor induced.INR assay in platelet poor plasma *PT/INR [facility] Work Phone: Start: 09-09-2012 End: 09-23-2013 Chest x-ray X-Ray, Chest, PA & Lateral [facility] Work Phone: Start: 09-09-2012 End: 09-09-2012 Device Interrogation Device Interrogation [facility] Work Phone: Start: 09-09-2012 End: 09-09-2012 Ecg routine ecg w/least 12 lds w/i&r EKG (In office) [facility] Work Phone: Start: 09-09-2012 End: 09-09-2012 Follow Up Appt 3 months Follow Up Appt 3 months [facility] Work Phone: Start: 09-09-2012 End: 09-09-2012 Follow Up Appt 6 months Follow Up Appt 6 months [facility] Work Phone: Start: 09-09-2012 End: 09-12-2012 Pacemaker Generator Change Pacemaker Generator Change [facility] Work Phone: Start: 09-09-2012 End: 09-09-2012 Pacer Clinic Pacer Clinic [facility] Work Phone: Start: 09-09-2012 End: 09-09-2012 PFM PFM [facility] Work Phone: Start: 09-09-2012 End: 09-23-2013 Chest x-ray X-Ray, Chest, PA & Lateral [facility] Work Phone: Start: 09-09-2012 End: 09-09-2012 Device Interrogation Device Interrogation [facility] Work Phone: Start: 09-09-2012 End: 09-09-2012 Electrocardiogram, complete EKG (In office) [facility] Work Phone: Start: 09-09-2012 End: 09-09-2012 Follow Up Appt 3 months Follow Up Appt 3 months [facility] Work Phone: Start: 09-09-2012 End: 09-09-2012 Follow Up Appt 6 months Follow Up Appt 6 months [facility] Work Phone: Start: 09-09-2012 End: 09-12-2012 Pacemaker Generator Change Pacemaker Generator Change [facility] Work Phone: Start: 09-09-2012 End: 09-09-2012 Pacer Clinic Pacer Clinic [facility] Work Phone: Start: 09-09-2012 End: 09-09-2012 PFM PFM [facility] Work Phone: Start: 08-05-2012 End: 08-08-2012 *Hepatic Function Panel *Hepatic Function Panel [facility] Work Phone: Start: 08-05-2012 End: 08-08-2012 Lipid panel [AGGREGATE] *Lipid Profile [facility] Work Phone: Start: 08-05-2012 End: 08-08-2012 *Hepatic Function Panel *Hepatic Function Panel [facility] Work Phone: Start: 08-05-2012 End: 08-08-2012 Lipid panel [AGGREGATE] *Lipid Profile [facility] Work Phone: Start: 02-16-2012 End: 09-05-2012 *BMP *BMP [facility] Work Phone: Start: 02-16-2012 End: 03-06-2012 *Hepatic Function Panel *Hepatic Function Panel [facility] Work Phone: Start: 02-16-2012 End: 02-16-2012 Follow Up Appt 6 months Follow Up Appt 6 months [facility] Work Phone: Start: 02-16-2012 End: 03-06-2012 Lipid panel [AGGREGATE] *Lipid Profile [facility] Work Phone: Start: 02-16-2012 End: 09-05-2012 *BMP *BMP [facility] Work Phone: Start: 02-16-2012 End: 03-06-2012 *Hepatic Function Panel *Hepatic Function Panel [facility] Work Phone: Start: 02-16-2012 End: 02-16-2012 Follow Up Appt 6 months Follow Up Appt 6 months [facility] Work Phone: Start: 02-16-2012 End: 03-06-2012 Lipid panel [AGGREGATE] *Lipid Profile [facility] Work Phone: Start: 01-11-2012 End: 03-06-2012 *Hepatic Function Panel *Hepatic Function Panel [facility] Work Phone: Start: 01-11-2012 End: 03-06-2012 Lipid panel [AGGREGATE] *Lipid Profile [facility] Work Phone: Start: 01-11-2012 End: 03-06-2012 *Hepatic Function Panel *Hepatic Function Panel [facility] Work Phone: Start: 01-11-2012 End: 03-06-2012 Lipid panel [AGGREGATE] *Lipid Profile [facility] Work Phone: Start: 12-26-2011 Prostate Cancer Scre ening Discussion Prostate Cancer Screening Discussion [facility] Start: 10-19-2011 End: 11-20-2011 *BMP *BMP [facility] Work Phone: Start: 10-19-2011 End: 11-20-2011 BNP *Brain Natriuretic Peptide BNP [facility] Work Phone: Start: 10-19-2011 End: 11-20-2011 Chest x-ray X-Ray, Chest, PA & Lateral [facility] Work Phone: Start: 10-19-2011 End: 10-30-2011 Echocardiography Echocardiogram (complete) [facility] Work Phone: Start: 10-19-2011 End: 09-05-2012 Follow Up Appt 3 months Follow Up Appt 3 months [facility] Work Phone: Start: 10-19-2011 End: 11-20-2011 *BMP *BMP [facility] Work Phone: Start: 10-19-2011 End: 11-20-2011 BNP *Brain Natriuretic Peptide BNP [facility] Work Phone: Start: 10-19-2011 End: 11-20-2011 Chest x-ray X-Ray, Chest, PA & Lateral [facility] Work Phone: Start: 10-19-2011 End: 10-30-2011 Echocardiography Echocardiogram (complete) [facility] Work Phone: Start: 10-19-2011 End: 09-05-2012 Follow Up Appt 3 months Follow Up Appt 3 months [facility] Work Phone: Start: 2006 Zoster Vaccines (1 of 2) Zoste r Vaccines (1 of 2) [facility] Start: 2001 Cologuard (FIT-DNA) Cologuard (FIT-D NA) [facility] Start: 2001 Colonoscopy Colonoscopy [facility] Start: 2001 Colorectal Cancer Screening Colorectal Cancer Screening [facility] Start: [address] COLONOGRAPHY [facility] Start: 2001 Diabetes Screening Diabetes Screenin g [facility] Start: 2001 Fecal Occult Blood Fecal Occult Bloo d [facility] Start: 2001 Screening for malign ant neoplasm of colon [facility] Start: 2001 SIGMOIDOSCOPY SIGMOIDOSCOPY [facility] Start: 12-26-1991 Lipid 1996 panel - S vinay or Plasma Lipid Screening [facility] Start: 12-26-1991 Lipid panel Lipid Screening [facility] Start: 1978 DTaP/Tdap/Td Vaccine s (1 - Tdap) DTaP/Tdap/Td Vaccines (1 - Tdap) [facility] Start: 12-26-1975 DTaP/Tdap/Td Vaccine s (1 - Tdap) DTaP/Tdap/Td Vaccines (1 - Tdap) [facility] Start: 12-26-1975 Hepatitis A Vaccine (1 of 2 - Risk 2-dose series) Hepatitis A Vaccine (1 of 2 - Risk 2-dose series) [facility] Start: 12-26-1975 Hepatitis A Vaccines (1 of 2 - Risk 2-dose series) Hepatitis A Vaccines (1 of 2 - Risk 2-dose series) [facility] Start: 12-26-1975 Shingrix Vaccine (1 of 2) Riggins grix Vaccine (1 of 2) [facility] Start: 12-26-1975 Urine microalbumin profile DTa P,Tdap,Td Vaccine (1 - Tdap) [facility] Start: 12-26-1975 Urine screening for protein CKD: Urine Protein Screening [facility] Start: 1974 Anxiety Screening Anxiety Screening [facility] Start: 1974 Depression Screening Depression Scre ening [facility] Start: 1974 Diabetes mellitus screening Diabetes Screening [facility] Start: 1974 Diabetes: Estimated Glomerular Filtration Rate for Kidney Health Diabetes: Estimated Glomerular Filtration Rate for Kidney Health [facility] Start: 1974 Diabetes: Urine Albumin-Creatinine Ratio for Kidney Health Diabetes: Urine Albumin-Creatinine Ratio for Kidney Health [facility] Start: 1974 Hepatitis C Screening Hepatitis C [facility] Start: 1974 Hepatitis C screening Hepatitis C [facility] Start: 1968 Depression Screening Depression Scre ening [facility] Start: 1966 Glaucoma screening Diabetes: R etinopathy Screening [facility] Start: 1966 Preventive dental service Diabetes: Dental Exam [facility] Start: 1962 Pneumococcal Vaccine : 65+ (1 - PCV) Pneumococcal Vaccine: 65+ (1 - PCV) [facility] Start: 06-27-1957 Covid-19 Vaccine (#1) Covid-19 Vacci ne (#1) [facility] Start: 1956 Abdominal aortic ane urysm screening Abdominal Aortic Aneurysm Screening [facility] Start: 1956 Creatinine measurement Creatinine Le luma [facility] Start: [address] [facility] Start: 1956 Hemoglobin A1c measurement Jacqueline betes: Hemoglobin A1C [facility] Start: 1956 Medicare Annual Well ness Visit Medicare Annual Wellness Visit (AWV) [facility] Start: 1956 Potassium measurement Potassium Leve l [facility] Start: 1956 Screening for malign ant neoplasm of colon [facility] Start: 1956 Urine screening for protein Diabetes: Urine Protein Screening [facility] End: 12-08-2025 COLONOSCOPY SCREEN (FRONT END USE ONLY) COLONOSCOPY SCREEN (FRONT END USE ONLY) Endoscopy Routine Encounter for screening colonoscopy 1 Occurrences starting 12/08/2024 until 12/08/2025 [facility] Work Phone: Comment on above: 1 Occurrences starti ng 12/08/2024 until 12/08/2025 Exercise tolerance test [facility] [place] Work Phone: Measurement of respi ratory function [facility] Patient Education [facility] [employer] Work Phone: Patient referral [facility] Work Phone: [facility] Immunizations Immunization Date Immunization Notes Care Provider Fa cili 11-25-2024 RSV vaccine preF3, recombinant ROSINA MAST UNDERWRITING ANALYST-COUPON REDEMPTION CLERK [facility] 11-25-2024 zoster vaccine recombinant ROSINA MAST UNDERWRITING ANALYST-COUPON REDEMPTION CLERK [facility] 11-15-2023 Pneumococcal conjuga te PCV20, polysaccharide [id number] conjugate, adjuvant, PF; Translations: [Prevnar 20] DR ARVIND SADLER MD [facility] 02-12-2023 Seasonal, quadrivale nt, recombinant, injectable influenza vaccine, preservative free [facility] Work Phone: [facility] 02-12-2023 influenza virus vaccine, unspecified formulation [facility] Work Phone: 03-24-2022 COVID-19 vaccine, ag e 12+ yr, bivalent (PFIZER-BIONTECH) [facility] Work Phone: [facility] 04-29-2021 pneumococcal conjuga te vaccine, 13 valent [facility] Work Phone: [facility] 03-11-2021 COVID-19 original vaccine, full dose, monovalent (MODERNA) [facility] Work Phone: [facility] 08-12-2020 COVID-19 original vaccine, full dose, monovalent (MODERNA) [facility] Work Phone: [facility] 07-15-2020 COVID-19 original vaccine, full dose, monovalent (MODERNA) [facility] Work Phone: [facility] 02-13-2020 pneumococcal polysaccharide vaccine, 23 valent [facility] Work Phone: [facility] 02-10-2020 influenza virus vaccine, unspecified formulation DR ARVIND SADLER MD [facility] 02-10-2020 influenza, injectabl e, quadrivalent, preservative free [facility] Work Phone: [facility] 06-27-2019 influenza virus vaccine, unspecified formulation DR ARVIND SADLER MD [facility] 06-27-2019 influenza, injectabl e, quadrivalent, preservative free Dr. Manuel Sandoval Work Phone: [facility] 06-27-2019 influenza, seasonal, injectable Dr. Manuel Sandoval Work Phone: [facility] 02-15-2017 influenza virus vaccine, unspecified formulation DR ARVIND SADLER MD [facility] 02-15-2017 influenza, seasonal, injectable [facility] Work Phone: [facility] Work Phone: 03-12-2014 pneumococcal Conjuga te, unspecified formulation [facility] Work Phone: [facility] 03-12-2014 pneumococcal polysaccharide vaccine, 23 valent [facility] Work Phone: [facility] 03-12-[address] Harriet Sandoval Work Phone: [facility] Work Phone: 03-12-2014 pneumococcal vaccine , unspecified formulation Dr. Manuel Sandoval Work Phone: [facility] 02-18-[address] Manuel Sandoval Work Phone: [facility] 02-18-2014 influenza, seasonal, injectable [facility] Work Phone: [facility] 02-18-2014 influenza, seasonal, injectable, preservative free [facility] Work Phone: [facility] Payers Date Payer Category Payer Self-pay [id number] 2023 Unknown [id number] 2023 Medicaid O [facility] MELONY Ribera EDICAID ONLY [id number] 2023 Medicare (Managed Care) 1.2. [id number] 2022 Unknown [employer] TRANSPLANT MDCR ADV [employer] MCR ADV TRANSPLANT [id number] 2022-Present [phone] [address] [address] [place] [address] PPO [id number] 2022 Medicaid [id number] 2022 Medicare [id number] .[id number] 2020 Dual Eligibility Medicare/Medicaid Organization [id number] 2020 Private Health Insurance [id number] .[id number] .[id number] 2020 Medicaid [id number] 2020 Unknown [id number] 2005 Medicare [id number] 1955 Unknown [id number] 2.840.1.624352.3.579.2 .62 1955 Unknown [id number] .840.1.180971.3.579.2 .627 1955 Unknown [id number] .840.1.563459.3.579.2 .1245 1955 Unknown [id number] .840.1.302737.3.579.2 .1245 1955 Unknown [id number] .840.1.408795.3.579.2 .627 1955 Unknown [id number] .840.1.597520.3.579.2 .627 1955 Unknown [id number] .840.1.782797.3.579.2 .627 1955 Unknown [id number] .840.1.426620.3.579.2 .627 1955 Unknown [id number] 2.840.1.741205.3.579.2 .627 Unknown [id number] 2.16840.1.569496.3.579.2 .462 Unknown [id number] 2.16840.1.456810.3.579.2 .462 Unknown [id number] 2.16.840.1.307619.3.579.2 .462 Unknown [id number] 2.16.840.1.002879.3.579.2 .462 Unknown [id number] 2.16.840.1.870372.3.579.2 .462 Unknown [id number] 2.16.840.1.455100.3.579.2 .462 Unknown [id number] 2.16840.1.314976.3.579.2 .462 Unknown [id number] 2.16840.1.597235.3.579.2 .462 Unknown [id number] 2.16840.1.451064.3.579.2 .462 Unknown [id number] 2.16840.1.126338.3.579.2 .462 Unknown [id number] 2.16840.1.617662.3.579.2 .462 Unknown [id number] 2.840.1.247036.3.579.2 .462 Unknown [id number] 2.16840.1.448135.3.579.2 .462 Unknown [id number] 2.16840.1.732148.3.579.2 .462 Unknown [id number] 2.16840.1.004965.3.579.2 .462 Unknown [id number] 2.840.1.585446.3.579.2 .462 Social History Date Type Detail Facility Start: 08-31-2021 End: 06-05-2023 Tobacco smoking status GAIS Unknown if ever smoked [facility] Start: 02-01-2020 Occasional [facility] Start: 02-01-2020 None [facility] Start: 02-01-2020 With Family [facility] Start: 07-30-2020 Non-smoker [facility] Start: 1955 Sex Assigned At Male [facility] Start: 1955 Sex Assigned At Not on file [facility] Start: 04-24-2023 End: 08-30-2023 Gender identity Not on file [facility] Start: 04-24-2023 End: 08-30-2023 History of Social function [facility] National Score (1-10 0), lower number is lower risk 74 [facility] Start: 06-12-2023 End: 12-04-2024 Tobacco smoking status Ex-smoker (finding) Ric Ness [facility] [place] Comment on above: Quit more than 15 yr s ago. JL History of tobacco use Current smoker [facility] History of tobacco use Cigarette Smoker [facility] Start: 08-30-2023 Tobacco use and exposure Smokeless tobacco non-user [facility] Start: 08-30-2023 Alcohol intake Ex-drinker (finding) [facility] Start: 08-20-2023 Sex Male (finding) Shani Me[facility] Start: 06-30-2024 End: 07-10-2024 Exposure to SARS-CoV-2 (event) Not sure [facility] Sexual Orientation Ric boudreaux [facility] Medical Equipment Procedure Code Equipment Code Equipment Origin al Text Equipment Identifier Dates Insertion, catheter, hemodialysis CATHETER, CVD PLNDRME 19CM FDA Start: 02-05-2020 Insertion, catheter, hemodialysis CATHETER, CVD PLNDRME 19CM FDA Start: 02-05-2020 Insertion, catheter, hemodialysis CATHETER, CVD PLNDRME 19CM FDA Start: 02-05-2020 Insertion, catheter, hemodialysis CATHETER, CVD PLNDRME 19CM FDA Start: 02-05-2020 Insertion, catheter, hemodialysis CATHETER, CVD PLNDRME 19CM FDA Start: 02-05-2020 Insertion, catheter, hemodialysis CATHETER, CVD PLNDRME 19CM FDA Start: 02-05-2020 Insertion, catheter, hemodialysis CATHETER, CVD PLNDRME 19CM FDA Start: 02-05-2020 Insertion, catheter, hemodialysis CATHETER, CVD PLNDRME 19CM FDA Start: 02-05-2020 Insertion, catheter, hemodialysis CATHETER, CVD PLNDRME 19CM FDA Start: 02-05-2020 Insertion, catheter, hemodialysis CATHETER, CVD PLNDRME 19CM FDA Start: 02-05-2020 Creation, AV fistula SUTURE,LIGA CLIP MED LT200 FDA Start: 08-06-2020 Creation, AV fistula SUTURE,LIGA CLIP MED LT200 FDA Start: 08-06-2020 Creation, AV fistula SUTURE,LIGA CLIP SM LT-100 FDA Start: 08-06-2020 Creation, AV fistula SUTURE,LIGA CLIP SM LT-100 FDA Start: 08-06-2020 Creation, AV fistula SUTURE,LIGA CLIP SM LT-100 FDA Start: 08-06-2020 Creation, AV fistula SUTURE,LIGA CLIP SM LT-100 FDA Start: 08-06-2020 Creation, AV fistula SUTURE,LIGA CLIP SM LT-100 FDA Start: 08-06-2020 Creation, AV fistula SUTURE,LIGA CLIP MED LT200 FDA Start: 08-06-2020 Creation, AV fistula SUTURE,LIGA CLIP MED LT200 FDA Start: 08-06-2020 Creation, AV fistula SUTURE,LIGA CLIP SM LT-100 FDA Start: 08-06-2020 Creation, AV fistula SUTURE,LIGA CLIP SM LT-100 FDA Start: 08-06-2020 Creation, AV fistula SUTURE,LIGA CLIP SM LT-100 FDA Start: 08-06-2020 Creation, AV fistula SUTURE,LIGA CLIP SM LT-100 FDA Start: 08-06-2020 Creation, AV fistula SUTURE,LIGA CLIP SM LT-100 FDA Start: 08-06-2020 Creation, AV fistula SUTURE,LIGA CLIP MED LT200 FDA Start: 08-06-2020 Creation, AV fistula SUTURE,LIGA CLIP MED LT200 FDA Start: 08-06-2020 Creation, AV fistula SUTURE,LIGA CLIP SM LT-100 FDA Start: 08-06-2020 Creation, AV fistula SUTURE,LIGA CLIP SM LT-100 FDA Start: 08-06-2020 Creation, AV fistula SUTURE,LIGA CLIP SM LT-100 FDA Start: 08-06-2020 Creation, AV fistula SUTURE,LIGA CLIP SM LT-100 FDA Start: 08-06-2020 Creation, AV fistula SUTURE,LIGA CLIP SM LT-100 FDA Start: 08-06-2020 Creation, AV fistula SUTURE,LIGA CLIP MED LT200 FDA Start: 08-06-2020 Creation, AV fistula SUTURE,LIGA CLIP MED LT200 FDA Start: 08-06-2020 Creation, AV fistula SUTURE,LIGA CLIP SM LT-100 FDA Start: 08-06-2020 Creation, AV fistula SUTURE,LIGA CLIP SM LT-100 FDA Start: 08-06-2020 Creation, AV fistula SUTURE,LIGA CLIP SM LT-100 FDA Start: 08-06-2020 Creation, AV fistula SUTURE,LIGA CLIP SM LT-100 FDA Start: 08-06-2020 Creation, AV fistula SUTURE,LIGA CLIP SM LT-100 FDA Start: 08-06-2020 Creation, AV fistula SUTURE,LIGA CLIP MED LT200 FDA Start: 08-06-2020 Creation, AV fistula SUTURE,LIGA CLIP MED LT200 FDA Start: 08-06-2020 Creation, AV fistula SUTURE,LIGA CLIP SM LT-100 FDA Start: 08-06-2020 Creation, AV fistula SUTURE,LIGA CLIP SM LT-100 FDA Start: 08-06-2020 Creation, AV fistula SUTURE,LIGA CLIP SM LT-100 FDA Start: 08-06-2020 Creation, AV fistula SUTURE,LIGA CLIP SM LT-100 FDA Start: 08-06-2020 Creation, AV fistula SUTURE,LIGA CLIP SM LT-100 FDA Start: 08-06-2020 Creation, AV fistula SUTURE,LIGA CLIP MED LT200 FDA Start: 08-06-2020 Creation, AV fistula SUTURE,LIGA CLIP MED LT200 FDA Start: 08-06-2020 Creation, AV fistula SUTURE,LIGA CLIP SM LT-100 FDA Start: 08-06-2020 Creation, AV fistula SUTURE,LIGA CLIP SM LT-100 FDA Start: 08-06-2020 Creation, AV fistula SUTURE,LIGA CLIP SM LT-100 FDA Start: 08-06-2020 Creation, AV fistula SUTURE,LIGA CLIP SM LT-100 FDA Start: 08-06-2020 Creation, AV fistula SUTURE,LIGA CLIP SM LT-100 FDA Start: 08-06-2020 Creation, AV fistula SUTURE,LIGA CLIP MED LT200 FDA Start: 08-06-2020 Creation, AV fistula SUTURE,LIGA CLIP MED LT200 FDA Start: 08-06-2020 Creation, AV fistula SUTURE,LIGA CLIP SM LT-100 FDA Start: 08-06-2020 Creation, AV fistula SUTURE,LIGA CLIP SM LT-100 FDA Start: 08-06-2020 Creation, AV fistula SUTURE,LIGA CLIP SM LT-100 FDA Start: 08-06-2020 Creation, AV fistula SUTURE,LIGA CLIP SM LT-100 FDA Start: 08-06-2020 Creation, AV fistula SUTURE,LIGA CLIP SM LT-100 FDA Start: 08-06-2020 Creation, AV fistula SUTURE,LIGA CLIP MED LT200 FDA Start: 08-06-2020 Creation, AV fistula SUTURE,LIGA CLIP MED LT200 FDA Start: 08-06-2020 Creation, AV fistula SUTURE,LIGA CLIP SM LT-100 FDA Start: 08-06-2020 Creation, AV fistula SUTURE,LIGA CLIP SM LT-100 FDA Start: 08-06-2020 Creation, AV fistula SUTURE,LIGA CLIP SM LT-100 FDA Start: 08-06-2020 Creation, AV fistula SUTURE,LIGA CLIP SM LT-100 FDA Start: 08-06-2020 Creation, AV fistula SUTURE,LIGA CLIP SM LT-100 FDA Start: 08-06-2020 Creation, AV fistula SUTURE,LIGA CLIP MED LT200 FDA Start: 08-06-2020 Creation, AV fistula SUTURE,LIGA CLIP MED LT200 FDA Start: 08-06-2020 Creation, AV fistula SUTURE,LIGA CLIP SM LT-100 FDA Start: 08-06-2020 Creation, AV fistula SUTURE,LIGA CLIP SM LT-100 FDA Start: 08-06-2020 Creation, AV fistula SUTURE,LIGA CLIP SM LT-100 FDA Start: 08-06-2020 Creation, AV fistula SUTURE,LIGA CLIP SM LT-100 FDA Start: 08-06-2020 Creation, AV fistula SUTURE,LIGA CLIP SM LT-100 FDA Start: 08-06-2020 Creation, AV fistula SUTURE,LIGA CLIP MED LT200 FDA Start: 08-06-2020 Creation, AV fistula SUTURE,LIGA CLIP MED LT200 FDA Start: 08-06-2020 Creation, AV fistula SUTURE,LIGA CLIP SM LT-100 FDA Start: 08-06-2020 Creation, AV fistula SUTURE,LIGA CLIP SM LT-100 FDA Start: 08-06-2020 Creation, AV fistula SUTURE,LIGA CLIP SM LT-100 FDA Start: 08-06-2020 Creation, AV fistula SUTURE,LIGA CLIP SM LT-100 FDA Start: 08-06-2020 Creation, AV fistula SUTURE,LIGA CLIP SM LT-100 FDA Start: 08-06-2020 Lancets (Onetouc h Delica Plus Lancet) 33 gauge misc Start: 05-24-2023 Lancets (Onetouc h Delica Plus Lancet) 33 gauge misc Start: 05-24-2023 See Instructions , one touch 1 bottle of 100 Checking BS once daily dx:diabetes, # 1 EA, 0 Refill(s), Pharmacy: [place] [facility] [id number], 155, cm, 12/18/23 9:01:00 EDT, Height, 94, kg, 12/18/23 9:01:00 EDT, Dosing Weight Start: 12-21-2023 See Instructions , BD UF 8mm 31 G (short) qs 1 month supply, # 1 EA, 11 Refill(s), Pharmacy: [place] [id number], 155, cm, 12/18/23 9:01:00 EDT, Height, 94, kg, 12/18/23 9:01:00 EDT, Dosing Weight Start: 01-08-2024 See Instructions , one touch 1 bottle of 100 Checking BS once daily dx:diabetes, # 1 EA, 0 Refill(s), Pharmacy: [place] [id number], 155, cm, 12/18/23 9:01:00 EDT, Height, 94, kg, 12/18/23 9:01:00 EDT, Dosing Weight Start: 12-21-2023 See Instructions , BD UF 8mm 31 G (short) qs 1 month supply uses 5 pen needles a day, # 150 EA, 11 Refill(s), Pharmacy: [place] [id number], 158, cm, 02/06/24 12:39:00 EDT, Height, 93.5, kg, 02/06/24 12:39:00 EDT, Dosing Weight Start: 02-13-2024 Use as instructed [id number] Start: 02-28-2024 Blood Sugar Diagnostic (Onetouch Ultra Test) strip Start: 01-29-2024 Lancets (Onetouc h Delica Plus Lancet) 33 gauge misc Start: 05-24-2023 See Instructions , one touch 1 bottle of 100 Checking BS once daily dx:diabetes, # 1 EA, 0 Refill(s), Pharmacy: [facility] [id number], 155, cm, 12/18/23 9:01:00 EDT, Height, 94, kg, 12/18/23 9:01:00 EDT, Dosing Weight Start: 12-21-2023 Blood Sugar Diagnostic (Onetouch Ultra Test) strip Start: 01-29-2024 Lancets (Onetouc h Delica Plus Lancet) 33 gauge misc Start: 05-24-2023 See Instructions , one touch 1 bottle of 100 Checking BS once daily dx:diabetes, # 1 EA, 0 Refill(s), Pharmacy: [facility] [id number], 155, cm, 12/18/23 9:01:00 EDT, Height, 94, kg, 12/18/23 9:01:00 EDT, Dosing Weight Start: 12-21-2023 See Instructions , Please dispense ucare [id number] pen needles. Use one pen needle to inject insulin 5 times a day as directed., # 1 EA, 0 Refill(s), Pharmacy: [place] [id number], 156, cm, 12/31/24 16:00:00 EDT, Height, 84.5, kg, 12/31/24 16:00:00 EDT, Dosing Weight Start: 01-02-2025 Goals Date Patient Goal Desired Activity /State Personal health goal Functional Status Date Assessment Result Facility 02-24-2024 Functional Status ID band on, Call device within reach, Bed in low position [facility] 02-24-2024 Functional Status [facility] 02-05-2024 Functional Status Awake [facility] Mental Status Date Assessment Result Facility 02-25-2024 Mental Status Orientation Oriented x 4 [facility] 02-24-2024 Mental Status [facility] 02-05-2024 Mental Status Orientation Oriented x 4 [facility] Clinical Notes 06-07-2022 to 01-08-2025 Note Date & Type Note Facility 01-08-2025 Progress note [facility] 01-08-2025 Progress note Note Date/Time January 08, 2025 10:[facility] [address] [place] [address] OFFICE VISIT Date of Service: 01/08/25 MR#: [id number] Acct: [id number] Name: KAUR VELEZ) Rep # : [id number] : 1955 Provider: Dr. Cole Pearson MD Age/Sex: 69/M Location: [facility] Status: Signed HPI HPI History of Present Illness Details: This gentleman with history of coronary artery disease status post CABG in 2002,cardiomyopathy with LVEF having since recovered, status post ICD, hypertension, dyslipidemia, diabetes mellitus and end-stage renal disease on dialysis, is herefor a follow-up visit. Denies any complaints today. No chest pains. No shortness of breath. Denies orthopnea or PND. No ankle edema. Previously. Advised the patient to stop taking his amiodarone. It still shows up on his list. He is not sure if he is taking it or not. Intake Vital Signs 09/02/24 07:55 01/08/25 10:30 Height 5 ft 1 in 5 ft 1 in Weight: 191 lb 187 lb BMI 36.1 35.3 BP 102/65 127/71 H Blood Pressure Location Lt brachial Lt brachial Position Sitting Sitting Respiration 18 18 Pulse 75 68 Pulse Source Monitor Monitor Temp 97.4 F L Temperature Source Temporal Artery Pulse Oximetry (%) 93 Oxygen Delivery Method room air Intake Visit Reasons: 6 M FU Educational Aide Required: No Accompanied by: Self Is patient in pain?: No Allergies No Known Allergies Allergy (Verified 01/08/25 10:25) Medications ?Medication ?Instructions ?Recorded ?Confirmed ?Type gabapentin 100 mg capsule 100 mg PO DAILY 03/03/21 History sucroferric oxyhydroxide 500 mg 500 mg PO QPC 05/23/22 12/18/24 History chewable tablet (Velphoro) lancets 33 gauge (OneTouch Delica #100 ea 05/24/23 History Plus Lancet) moringa 6000mg 1 tab PO 2XD 12/06/23 History fenofibrate micronized 200 mg 200 mg PO DAILY #30 caps 01/03/24 12/18/24 Rx capsule furosemide 80 mg tablet 80 mg PO BID #60 tabs 12/18/24 Rx metoprolol tartrate 50 mg tablet 50 mg PO BID #60 tabs 01/03/24 12/18/24 Rx simvastatin 20 mg tablet 20 mg PO QHS #30 tabs 12/18/24 Rx ammonium lactate 12 % lotion applic topical 01/29/24 0 12/18/24 History aspirin 81 mg tablet,delayed 81 mg PO QDAY 01/29/24 History release blood sugar diagnostic (OneTouch #10 ea 01/29/2412/18 History Ultra Test strips) blood-glucose sensor (Dexcom G6 01/29/24 12/18/24 His tory Sensor device) cholecalciferol (vitamin D3) 25 25 mcg PO QDAY 01/28/ 4 12/18/24 History mcg (1,000 unit) capsule dulaglutide 1.5 mg/0.5 mL 1.5 mg subcut QWEEK 01/29/24 12/18/24 History subcutaneous pen injector (Trulicity) hydroxyzine HCl 25 mg tablet 25 mg PO QHS 01/29/24 History latanoprost 0.005 % eye drops drp ophthalmic (eye) 12/18/24 History insulin glargine 100 unit/mL (3 10 unit subcut QDAY 01/08/25 History mL) subcutaneous pen (Lantus Solostar U-100 Insulin) insulin lispro 100 unit/mL 3 unit subcut TID 01/08/25 01/08/25 History subcutaneous pen (Humalog KwikPen (U-100) Insulin) Ejection fraction %: 53 Have you fallen in the past year?: No PFSH Medical History Chronic kidney disease (CKD) Influenza A Hypoxemia CAD (coronary artery disease) Excoriation of left lower leg Lymphedema PVD (peripheral vascular disease) Bilateral lower extremity edema 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 Obesity (BMI 30-39.9) 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 Coronary artery disease Dyslipidemia End stage renal disease on dialysis Hypertriglyceridemia Chronic renal failure, stage 5 Essential hypertension Pure hypercholesterolemia Type 2 diabetes mellitus Fatty liver Old myocardial infarction Angina decubitus Long-term use of high-risk medication Edema Family history of hypertension Abnormal stress test Tachycardia Presence of cardiac defibrillator (~08/2004) Pulmonary hypertension Ischemic cardiomyopathy Chronic systolic congestive heart failure Atherosclerosis of coronary artery bypass graft without angina pectoris Surgical History History of permanent cardiac pacemaker placement Aortocoronary bypass status (~02/22/03) Family History Mother Hypertension Sister Hypertension Social History Smoking Status: Former smoker second hand exposure: No alcohol intake: never substance use type: does not use caffeine: No ROS Const Const: Negative for fatigue or weakness Eyes Eyes: Negative for change in vision ENT ENT: Negative for dizziness or balance problems Cardio Chest Pain: No Palpitations: No Edema: Bilateral Resp Respiratory: Negative for SOB with activity, SOB at rest or SOB orthopnea\\SOB lying down GI GI: Negative nausea or heartburn Musc Musc: Negative for balance problems Neuro Neuro: Negative for dizziness, lightheadedness, near syncope, syncope or weakness Endo Endo: Negative for fatigue Cardiology Exam Const Appearance: comfortable and no acute distress Nutritional Appearance: well nourished Neck Neck: no JVD Carotids: Negative bruit Chest Auscultation: Bilateral: Clear to Auscultation Cardio Rate: regular rate Rhythm: regular rhythm Heart sounds: S1 normal and S2 normal Neuro General: patient alert, patient awake and patient oriented x3 Extremities Lower Extremity Edema: None: Bilateral Supplemental Info Supplemental Information Labs: No Data to Display Diagnostics: No Data to Display Pulmonary: Pulmonary Exercise Test Past Visits: Cardiology Visit 01/08/25 Assessment and Plan Assessment and Plan (1) Coronary artery disease: Status: Chronic Plan: Status post CABG. continue medical management. Aspirin, beta-blockers, risk factor modification. Check Lexiscan stress Myoview. (2) Aortocoronary bypass status: Status: Resolved Comment: CABG x6 ; Internal Mammary to Anterior Descending, SVG to diag branch of the Anterior descending,SVG to the lateral & posteriorlateral CX, SVG to Posterior Descending and continuation branches of the RCA 10/24/03 Plan: History of CABG in 2002. See #1 above. (3) Ischemic cardiomyopathy: Status: Chronic Plan: LVEF has recovered. Continue beta-carlin. Repeat echocardiogram. (4) Presence of cardiac defibrillator: Status: Chronic Plan: Continue to follow at the pacemaker clinic. (5) Essential hypertension: Status: Chronic Plan: Beta-blockers, furosemide. (6) Dyslipidemia: Status: Chronic Plan: Simvastatin and fenofibrate. PCP managing. (7) End stage renal disease on dialysis: Status: Chronic Plan: As per nephrology. Plan Details Additional Comments: We will double check with patient's pharmacy if he is still taking amiodarone. If he is, we will discontinue that. There is no documented atrial fibrillation for this patient. For his history of NSVT, his beta-carlin has been increased. He also has a defibrillator. Follow Up: 6 Months Coding Level of Care Code Off vis,est,level 4 Diagnoses Coronary artery disease I25.10 Aortocoronary bypass status Z95.1 Ischemic cardiomyopathy I25.5 Presence of cardiac defibrillator Z95.810 Essential hypertension I10 Dyslipidemia E78.5 End stage renal disease on dialysis N18.6; Z99.2 Coding Level of Care Code Off vis,est,level 4 Diagnoses Coronary artery disease I25.10 Aortocoronary bypass status Z95.1 Ischemic cardiomyopathy I25.5 Presence of cardiac defibrillator Z95.810 Essential hypertension I10 Dyslipidemia E78.5 End stage renal disease on dialysis N18.6; Z99.2 Clinical Quality Measures Falls Risk Screening/Assistive Devices Have you fallen in the past year?: No Cardiac Ejection fraction %: 53 01/08/25 1054 <Electronically signed by Muriel Pearson MD> Date _ Muriel Pearson MD Cosigner Signature: Date (if applicable) CC: ~ [employer] Work Phone: 1(606) 557-413906-30-2025 Telephone encounter Note* Telephone Encounter - Chandra Jenkins RN - 11/03/2024 12:10 PM EDT Nurse returned phone call to Torie regarding [place]. Pt needs to see cardiology here at [facility] andfollowing that appt pt will be schedule to see the txp team. Nurse asked the sw to assist the pt ingetting his colonoscopy taken care of. Torie verbalized her understanding. Chandra Jenkins RN [facility]06-30-2025 Miscellaneous Notes* Telephone Encounter - Chandra Simeon RN - 11/03/2024 12:10 PM EDT Nurse returned phone call to Torie regarding [place]. [facility] [place] andfollowing that appt pt will be schedule to see the txp team. Nurse asked the sw to assist the pt ingetting his colonoscopy taken care of. Torie verbalized her understanding. Chandra Jenkins RN * Telephone Encounter - Sarah Clark - 10/27/2024 1:13 PM EDT [facility] requesting an update on pt. I explained the pt needed to complete a colonoscopy, ECHO, and stress test to complete evaluation. She requested to speak to Chandra. Call back is [phone]. documented in this [facility] Telephone encounter Note * Telephone Encounter - Sarah Clark - 10/27/2024 1:13 PM EDT Torie azul [facility] called requesting an update on pt. I explained the pt needed to complete a colonoscopy, ECHO, and stress test to complete evaluation. She requested to speak to Chandra. Call back is [phone]. [facility]04-29-[facility] Evaluation note* Diagnosis Onset Date Resolution Status Admit Date End stage renal disease on dialysis chronic September 02, 2024 10:09am Obesity (BMI 30-39.9) chronic Apr il 2024 10:09am Pulmonary hypertension chronic Ap ril 2024 10:09am Sleep apnea chronic September 02, 025 10:09am [employer] Work Phone: 1(666) 303-825403-06-2025 History of Present illness Narrative* Philip Blank MD - 07/10/2024 1:00 PM EST Images from the original note were not included. TRANSPLANT SURGERY EVALUATION History of Present Illness Kaur Velez is a 68 y.o. male who presents for kidney transplant evaluation visit. He is currently on dialysis. The cause of kidney disease is Diabetes and Hypertension. He does have a historyof heart attack. He had a CABG in 2000 or 2 (unclear). He then had an ICD placed (thought patient thinks it is a pacemaker) He does not have a history of malignancy. Kaur Velez's overall functional status is Fair. He denies CP, Sob. Was able to walk from front door. He has a history of pulmonary hypertension but does not routinely use his CPAP. His last echo demonstrated a PASP 53. Patient Active Problem List Diagnosis Presence of automatic (implantable) cardiac defibrillator Pulmonary hypertension (Multi) Retention of urine Secondary hyperparathyroidism of renal origin (Multi) Type 2 diabetes mellitus with unspecified complications Vitamin D deficiency, unspecified Review of Systems Constitutional: Negative for fatigue and fever. Respiratory: Negative for shortness of breath. Cardiovascular: Negative for chest pain. Gastrointestinal: Negative for abdominal pain. Musculoskeletal: Positive for arthralgias. Neurological: Negative for tremors. Objective BP 126/68 Pulse 74 Temp 36.3 C (97.4 F) (Temporal) Ht 1.549 m (5' 1") Wt 88.4 kg (194 lb 12.8 oz) SpO2 97% BMI 36.81 kg/m Physical Exam Constitutional: Appearance: He is obese. Cardiovascular: Rate and Rhythm: Normal rate. Pulses: Normal pulses. Pulmonary: Breath sounds: Normal breath sounds. Abdominal: Palpations: Abdomen is soft. There is no mass. Hernia: No hernia is present. Musculoskeletal: General: Normal range of motion. Skin: General: Skin is warm. Neurological: Mental Status: He is alert. Lab Review Blood Type: No results found for: "ABORH" Lab Results Component Value Date CREATININE 6.09 (H) 01/30/2023 K 4.8 01/30/2023 GLUCOSE 180 (H) 01/30/2023 HCT 37.8 01/30/2023 WBC 8.1 01/30/2023 PLT 253 01/30/2023 CALCIUM 10.3 01/30/2023 CT Yes Date: 2022 I personally reviewed the imaged demonstrating adequate vascular targets on right external iliac. Right iliac: Common iliac artery: Mild (less than 50% circumferential) atherosclerotic calcification External iliac artery: Minimal atherosclerotic calcification. Tortuous right external iliac artery. Internal iliac artery: Moderate (greater than 50% circumference) atherosclerotic calcification Left iliac: Common iliac artery: Moderate (greater than 50% circumference) atherosclerotic calcification External iliac artery: Minimal atherosclerotic calcification Internal iliac artery: Moderate to severe atherosclerotic calcification Cardiographics ECHO: Yes Date: 2022 STRESS TEST; Yes Date: 2023 CONCLUSIONS: 1. SPECT Perfusion Study: Abnormal. 2. There is mild (<10%) ischemia in the territory of the LAD. 3. There is a small (<10%) fixed perfusion defect in the LAD territory. 4. There is a small (<10%) fixed perfusion defect in the RCA territory. 5. Left ventricle is mildly dilated. The left ventricle systolic function is mildly decreased. 6. Right ventricle is normal in size. The right ventricle systolic function is normal. 7. This is an intermediate risk scan. Assessment/Plan Diagnoses: ESRD requiring renal replacement therapy. Kaur Velez is a marginal candidate for kidney transplantation. He has an intermediate stress test and evidence of pulmonary hypertension. He is not using CPAP. He needs to use his CPAP for 3 months and have a repeat ECHO through his primary care or cloth shrinking tester. If this demonstrates improvement in his pulmonary pressures he can come for a full evaluation. If no improvement, he should go to the pulmonary hypertension clinic for possible pharmacologic intervention. He will need the following tests prior to listing if we proceed with full evaluation. Cardiac: Echocardiogram Stress test CT Cardiac calcium score Malignancy screening: Yes - need colonscopy Six minute walk: No CT Scan: Yes - repeat last [address]: No ID- [place] Advantages and disadvantages of transplantation were reviewed. Discussed the operative procedure and potential complications, particularly in regard to the need for re-operation. I addressed issues of post-operative recovery and follow- up. Lastly, I discussed the need for immunosuppressive therapy and the risk associated with this treatment. I reviewed the risks of various donor organs including transmission of disease and need for dialysis after transplant. The patient consents to receive offers from high KDPI (Yes), hepatitis B core + (Yes), Hepatitis C+ (Yes) donors. Current center SRTR results were provided to the patient. I answered all of his questions to the best of my ability. He appears to have good understanding of his medical condition and the transplant process. Philip Blank MD chuck boner I spent 40 minutes on the professional care of this patient including record review, physical exam,patient counseling, and documentation. documented in this [facility] Work Phone: 1(473) 204-454212-17-2024 History of Present illness Narrative* Rodolfo Smyth, RT(R) - 04/22/2024 12:30 PM EST RADIOLOGY SERVICE PROGRESS NOTE SERVICE DATE: 04/22/2024 SERVICE TIME: 1:58 PM PATIENT IDENTITY VERIFICATION COMPLETED USING TWO (2) STANDARD IDENTIFIERS: Name and Date of confirmed by patient verbally FALL SCREENING: Has the patient had 2 falls in the last year or 1 fall with injury or currently using an Ambulatory Assistive Device (Walker, Cane, Wheelchair, Crutches, etc.)? No PATIENT GENDER DATA: .male ALLERGIES: Reviewed and unchanged MEDICATIONS REVIEWED: No PATIENT RELEVANT IMPLANT DATA REVIEWED: Not Applicable PATIENT PRESENTS WITH AN IMPLANTABLE OR ATTACHED ANTISQUEAK FILLER: No CREATININE: Creatinine Date Value Ref Range Status 04/24/2023 5.45 (H) 0.73 - 1.22 mg/dL Final Estimated Glomerular Filtration Rate Date Value Ref Range Status 04/24/2023 11 (L) >=60 mL/min/1.73m Final Comment: Estimated Glomerular Filtration Rate (eGFR) is calculated using the 2020 CKD-EPI creatinine equation. This equation utilizes serum creatinine, sex, and age as parameters. The creatinine assay has traceable calibration to isotope dilution- mass spectrometry. Refer to KDIGO guidelines for clinical interpretation. In patients with unstable renal function, e.g. those with acute kidney injury, the eGFRmay not accurately reflect actual GFR. P.O.C.T. RESULTS: N/A April 22, [address] PERFORMED: No IV SITE: Ambulatory: A peripheral IV was started in the Left antecubital site with a Angio cath: 22gauge. POST EXAM PIV STATUS: Discontinued PROCEDURE TYPE: NM Stress: 11.8 mCi [id number] was administered IV for Rest Imaging at 1220 by ty. 41.6 mCi [id number] was administered IV for Stress Imaging at 155 by ty. ADMINISTRATION TIME: 1220 PATIENT DISCHARGED TO: Ambulatory patient, left NM department area. Is this a therapy: No A Diagnostic radioactive procedure has taken place, with no further precautions necessary other than routine body substance precautions. More information regarding radiation safety can be found usingthis link: [email or web address] SIGNATURE: RENE Mojica) PATIENT NAME: Kaur Velez DATE: April 22, 2024 TIME: 1:58 PM PAGER/CONTACT #: * Rebecca Sadler RN - 04/22/2024 12:30 PM EST Lexiscan stress test explained and questions answered. documented in this encounter[facility]-2024 Telephone encounter Note * Telephone Encounter - Chandra Jenkins RN - 03/11/2024 3:47 PM EST Nurse called and spoke with Mr Webber(friend) regarding SANYA. Pt needs colonoscopy, stress test and ECHO to complete evaluation. Orders placed today. Mr Webber verbalized his understanding. Chandra Jenkins RN [facility]11-05-20[facility] Miscellaneous Notes* Telephone Encounter - Chandra Simeon RN - 03/11/2024 3:47 PM EST Nurse called and spoke with Mr Webber(friend) regarding SANYA. Pt needs colonoscopy, stress test and ECHO to complete evaluation. Orders placed today. Mr Webber verbalized his understanding. Chandra Jenkins RN documented in this encounterOhio[facility]10-24-2024 History of Present illness Narrative* Kandi Ruiz PA-C - 02/28/2024 2:00 PM EDT Images from the original note were not included. [address] [facility] END[facility] - [facility] [address] [facility] [id number] Dept: [phone] Dept Visit type: New Patient Reason for Visit: Follow-up Assessment and Plan 1. Type 2 diabetes mellitus with hyperglycemia, with long-term current use of insulin (HCC) - AMB POC HEMOGLOBIN A1C - glucose 4 g chewable tablet; Chew 4 tablets (16 g) Daily as needed for low blood sugar., StartingThu 02/28/2024, Until Sun02/27/2025 at 2359, Normal - glucagon (Gvoke HypoPen 2-Pack) 1 MG/0.2ML injection; Inject 0.2 mL (1 mg) under the skin Once asneeded for low blood sugar for up to 8 doses., Starting Karina 02/28/2024, Normal - Hm Diabetes Foot Exam - [facility] - dapagliflozin (Farxiga) 10 MG tablet; Take 1 tablet (10 mg) by mouth daily., Starting Karina 02/28/2024, Until Sun02/27/2025, Normal - dulaglutide (Trulicity) 0.75 MG/0.5ML; Inject 0.75 mg under the skin 1 (one) time per week., Starting Karina 02/28/2024, Until Sun02/27/2025, Normal - insulin detemir (Levemir) 100 UNIT/ML injection; Inject 50 Units under the skin 2 times daily., Starting Karina 02/28/2024, Until Sun02/27/2025, Normal - insulin lispro (HumaLOG) 100 UNIT/ML pen injection; 10 units TIDWC + SSI MDD 70 units, Normal - pen needle 32G x 4 mm misc; Use as instructed, Normal 2. ESRD (end stage renal disease) on dialysis ([facility]) 3. Type 2 diabetes mellitus with hyperlipidemia (HCC) ([facility]) 4. Hypertension associated with type 2 diabetes mellitus ([facility]) ([facility]) 5. Class 2 severe obesity with serious comorbidity and body mass index (BMI) of 36.0 to 36.9 in adult, unspecified obesity type ([facility]) 6. Type 2 diabetes mellitus with diabetic polyneuropathy, with long-term current use of insulin ([facility]) No results found for: "EGFR", "TSH", "CHOL", "TRIGLYCERIDE", "HDL", "LDLCALC", "MICROALBCREA", "ALBUMINCREAT" Lab Results Component Value Date HGBA1C 5.9 (A) 02/28/2024 DM2 Diabetes is: poorly controlled A1C Target: 7.5-8% A1c in presence of anemia and ESRD Insulin is necessary for ongoing management Lab Results Component Value Date HGBA1C 5.9 (A) 02/28/2024 Recommendations: Patient will make the following changes to regimen: - Levemir 50 BID - Farxiga 10 mg every day - Trulicity 0.75 mg QW - Insulin Lispro 02/13/10 TIDWC + SSI -Metformin not a good idea re: eGFR --> Labs to be done fasting prior to next visit; discussed holding supplements 5 days prior. --> Continue BG monitoring: via Sergo 2 (or FSBS 4 times per day) and send in BGL as needed for review. --> Backup Meter: has at home --> Hypos: Glucagon and Glucose Tabs --> DMFE: today Education: Discussed with Patient: - Notification Parameters - He can follow up with Primary Care moving forward - Discussed healthy balanced diet and exercise - Discussed importance of annual dilated eye exam for Diabetes - Discussed potential medication side effects - Discussed blood glucose goals and A1C targets - Discussed uncontrolled diabetes potential effects on organ systems - Discussed hypoglycemia treatment plan - Discussed importance of taking meds as prescribed - Discussed importance of foot care and follow up with Podiatry as needed for Diabetes - Discussed importance of Follow up for Diabetes - Patient instructed to call office if BG over 250 or under 70 consistently HTN - Patient is taking Amiodarone and Metoprolol. Continue as prescribed - Cardiology manages - BP today: BP Readings from Last 1 Encounters: 02/28/24 128/76 HLD - Patient is taking Statin and Fenofibrate, continue as prescribed - Discussed healthy diet, exercise, and A1C control - Cardiology manages Obesity BMI Readings from Last 1 Encounters: 02/28/24 37.68 kg/m - Continue to work on lifestyle changes: dietary habits; increasing activity as able, weight reduction - Optimize DM agents to aid w/ the same. ESRD on Dialysis - HD M/W/F - Last eGFR was 10 on 06/2023 - Will continue to follow renal panels - Discussed importance of BG control for kidney protection - Discussed elevated A1c effect on kidneys over time - Neprhology manages Neuropathy - Discussed blood glucose control to prevent worsening of neuropathy - Discussed daily foot checks to watch for wounds/ulcers - Recommended continuing to follow with Podiatry - sees provider in [place], unsure of name - Patient counseled about these recommendations. Patient voiced understanding. [] Records from outside facility/PCP office to be requested. [x] Scripts sent to pharmacy of choice. Follow up for Follow wi PCP moving forward. Diagnostic Data Reviewed Today: CGM AGP Reviewed: No Subjective HPI PCP: No primary care provider on file. [facility] Patient presented with brother who answers some questions for him. He is mild LEP History of Type 2 Diabetes Time of Onset: 2 years ago Circumstances surrounding dx: screening Previous hospitalizations for DM: Denies Family hx DM: Denies Denies any hospitalizations, denies any recent surgeries, denies any new illnesses Denies any steroid use recently Patient current complaints include: - Not sure why he is here. Traveled far to get here Current Medication Regimen: - Levemir 50 BID - Farxiga 10 mg every day - Trulicity 0.75 mg QW - Insulin Lispro 10//10 TIDWC Previously Used DM Agents: - Patient unsure Injection Sites/Rotation: Yes Missed Medication Doses: Denies Medication Side Effects: Denies Medication Cost Concerns: Denies OTC Supplement Usage: Endorses - Vitamin D Glucose Monitoring CGM use: Yes-Sergo 2 BGL present: No Scanned into media: No BGL discussed with patient: No Recent Hyperglycemia - Endorses Recent Hypoglycemia: Endorses occasional 60s Hypoglycemic Treatment Plan: Glucose tabs and Glucagon sent today BG Trends: - Per recall - 70s to 200 Dietary Patterns: - 2 meals per day. Afternoon and Evening meal. Not too much sugar per patient - Sugary Beverages - Pop once in a while Exercise Patterns: ADLs, walks everyday Complication History Retinopathy: Denies - Last Dilated Eye Exam: Sees [place] [facility] - appt coming up per patient Neuropathy: Endorses - Last DMFE: 02/2024. Physical Therapy Nurse: unsure of name, follows [facility] in [place] HTN: Endorses HLD: Endorses Renal: Endorses - ESRD on Dialysis Cardiac: Endorses- HTN/HLD KEVIN: Denies Obesity: Endorses Gastroparesis: Denies H/o Pancreatitis: Denies MTC Famhx: Denies H/o UTI/Yeast Inxf: Denies Impaired Wound Healing: Denies Hypoglycemic Unawareness: Denies Other: None Review of Systems Constitutional: Negative for activity change, appetite change, fatigue and unexpected weight change. Eyes: Negative for photophobia and visual disturbance. Respiratory: Negative for apnea. Cardiovascular: Negative for palpitations. Gastrointestinal: Negative for constipation, diarrhea, nausea and vomiting. Endocrine: Negative for polydipsia, polyphagia and polyuria. Skin: Negative for rash and wound. Neurological: Negative for headaches. Psychiatric/Behavioral: Positive for sleep disturbance (nocturia). Negative for agitation, confusion and decreased concentration. ROS was performed at the time of this encounter. Unless noted above in the HPI, the ROS is negative. No Known Allergies Outpatient Medications Prior to Visit Medication Sig Dispense Refill fenofibrate (Tricor) 48 MG tablet Take 48 mg by mouth daily. simvastatin (Zocor) 20 MG tablet Take 20 mg by mouth Nightly. dapagliflozin (Farxiga) 10 MG tablet Take 10 mg by mouth daily. dulaglutide (Trulicity) 0.75 MG/0.5ML Inject 0.75 mg under the skin 1 (one) time per week. insulin detemir (Levemir) 100 UNIT/ML injection Inject 58 Units under the skin in the morning and 58 Units in the evening. insulin lispro (HumaLOG) 100 UNIT/ML pen injection Inject under the skin 3 times daily (with meals). PER SSI No facility-administered medications prior to visit. History reviewed. No pertinent past medical history. Social History Tobacco Use Smoking status: Not on file Smokeless tobacco: Not on file Substance Use Topics Alcohol use: Not on file History reviewed. No pertinent surgical history. No family history on file. Objective BP 128/76 Pulse 98 Ht 5' 1" (1.549 m) Wt 199 lb 6.4 oz (90.4 kg) BMI 37.68 kg/m Physical Exam Vitals reviewed. Constitutional: Appearance: Normal appearance. He is obese. Comments: R arm fistula Cardiovascular: Rate and Rhythm: Normal rate and regular rhythm. Pulses: Normal pulses. Heart sounds: Normal heart sounds. No murmur heard. No gallop. Pulmonary: Effort: Pulmonary effort is normal. No respiratory distress. Breath sounds: Normal breath sounds. Feet: Right foot: Protective Sensation: 7 sites tested. 7 sites sensed. Skin integrity: Erythema present. No ulcer or callus. Toenail Condition: Right toenails are abnormally thick and long. Fungal disease present. Left foot: Protective Sensation: 7 sites tested. 7 sites sensed. Skin integrity: Erythema present. No ulcer or callus. Toenail Condition: Left toenails are abnormally thick and long. Fungal disease present. Comments: DM Foot Examination: Monofilament Sensation --- Normal Pulses --- present Skin: General: Skin is warm and dry. Neurological: General: No focal deficit present. Mental Status: He is alert and oriented to person, place, and time. Mental status is at baseline. Psychiatric: Mood and Affect: Mood normal. Behavior: Behavior normal. Thought Content: Thought content normal. Judgment: Judgment normal. Data Reviewed and Summarized Labs: Lab Results Component Value Date HGBA1C 5.9 (A) 02/28/2024 No results found for: "CHLPL", "CHOL", "CHOLESTEROLT" No results found for: "TRIG", "TRIGLYCERIDE" No results found for: "HDL", "HDLCHOLESTER" No results found for: "LDL", "LDLCALC", "LDLCHOLESTER" No results found for: "EGFR", "GFR" No results found for: "MICROALBCREA", "ALBUMINCREAT" No results found for: "TSH" No results found for: "[id number]" Electronically signed by Kandi Ruiz PA-C Portions of the information within this encounter were entered using an electronic dictation system. Best attempts were made to edit/proofread the information prior to note completion. Despite the review of information, some errors may remain. If there are questions related to the information contained within the note please contact the signing physician directly. documented in this [facility]10-21-2024 Hospital Discharge instructions Patient Education 02/25/2024 00:01:41 Shortness of Breath (Dyspnea) Shortness of Breath (Dyspnea) Shortness of breath is the feeling that you can't catch your breath or get enough air. It is also known as dyspnea. Dyspnea can be caused by many different conditions. They include: Acute asthma attack Worsening of chronic lung diseases such as chronic bronchitis and emphysema Heart failure. This is when weak heart muscle allows extra fluid to collect in the lungs. Panic attacks or anxiety. Fear can cause rapid breathing (hyperventilation). Pneumonia, or an infection in the lung tissue Exposure to toxic substances, fumes, smoke, or certain medicines Blood clot in the lung (pulmonary embolism). This is often from a piece of blood clot in a deep vein of the leg (deep vein thrombosis) that breaks off and travels to the lungs. Heart attack or heart-related chest pain (angina) Anemia Collapsed lung (pneumothorax) Dehydration Based on your visit today, the exact cause of your shortness of breath is not certain. Your tests don t show any of the serious causes of dyspnea. You may need other tests to find out if you have a serious problem. It s important to watch for any new symptoms or symptoms that get worse. Follow up with your healthcare provider as directed. Home care Follow these tips to take care of yourself at home: When your symptoms are better, go back to your usual activities. If you smoke, you should stop. Join a quit-smoking program or ask your healthcare provider for help. Eat a healthy diet and get plenty of sleep. Get regular exercise. Talk with your healthcare provider before starting to exercise, especially ifyou have other medical problems. Cut down on the amount of caffeine and stimulants you consume. Follow-up care Follow up with your healthcare provider, or as advised. If tests were done, you will be told if your treatment needs to be changed. You can call as directed for the results. If an X-ray was taken, a specialist will review it. You will be notified of any new findings that may affect your care. Call 911 Shortness of breath may be a sign of a serious medical problem. For example, it may be a problem with your heart or lungs. Call 911 if you have worsening shortness of breath or trouble breathing, especially with any of the symptoms below: Confusion or difficulty waking Fainting or loss of consciousness. Fast or irregular heartbeat Coughing up blood Pain in your chest, arm, shoulder, neck, or upper back Sweating When to seek medical advice Call your healthcare provider right away if any of these occur: Slight shortness of breath or wheezing Redness, pain or swelling in your leg, arm, or other body area Swelling in both legs or ankles Fast weight gain Dizziness or weakness Fever of 100.4 F (38 C) or higher, or as directed by your healthcare provider [phone] [employer]. [address] [place] [address]. All rights reserved. This information is not intended as a substitute for professional medical care. Always follow yourhealthcare professional's instructions. Follow Up Care 02/24/2024 22:44:13 With:ROSINA BLOOM APRN-C[employer] REDEMPTION CLERK Address: [address] [facility] [place] [address]- [phone] When:2-4 days [facility] 10-21-2024 Note Discharge Instructions Thank you for allowing [facility] to assist you with your healthcare needs. The following is importantdischarge information regarding your hospital visit. What to Do Next Instructions from Your Care Team No qualifying data available. Post Acute Orders No qualifying data available. You Need to Schedule the Following Appointments Follow Up with ROSINA BLOOM When:Within 2-4 days Where:[address] [place] [address]- [phone] Allergies NKA Medications Please ask your primary doctor or pharmacist before taking any other medication not listed, including over the counter drugs, herbal medications, vitamins and or supplements as they may interact withyour home medications. What How Much When Instructions Last Dose Unchanged acetaminophen (acetaminophen 500 mg oral tablet) 2 tab(s) by mouth Three (3) times a day as needed for pain or fever Unchanged amiodarone (amiodarone 200 mg oral tablet) 1 tab(s) by mouth Once a day Unchanged ammonium lactate topical (ammonium lactate 12% topical lotion) Unchanged aspirin (aspirin 81 mg oral delayed release tablet) 1 tab(s) by mouth Once a day Unchanged cholecalciferol (D3) by mouth Once a day Unchanged dapagliflozin (Farxiga 10 mg oral tablet) 1 tab(s) by mouth Once a day Unchanged DME (Blood Glucose Test Strips) See instructions one touch 1 bottle of 100 Checking BS once daily dx:diabetes Unchanged DME (Pen needles 8 mm) See instructions BD UF 8mm 31 G (short) qs 1 month supply uses 5 pen needles a day Unchanged dulaglutide (Trulicity Pen 3 mg/ 0.5 mL subcutaneous solution) 3 Milligram Subcutaneous Every week rotate injection sites Unchanged fenofibrate (fenofibrate micronized 200 mg oral capsule) 1 cap by mouth Once a day Unchanged furosemide (Lasix 80 mg oral tablet) 1 tab(s) by mouth Two (2) times a day Duration: 30 Days Unchanged insulin detemir (Levemir) (Levemir 100 units/ mL FlexPen 3 mL Pen) See instructions 58units BID Subcutaneous Unchanged insulin lispro (HumaLOG) (Insulin Lispro KwikPen 100 units/ mL injectable solution) 20 unit(s) Subcutaneous Three (3) times a day before meals Unchanged latanoprost ophthalmic (latanoprost 0.005% ophthalmic solution) 1 Drops Both eyes Once a day Unchanged Misc Medication (METOPROLOL TARTRATE 50 MG TABS) Unchanged Misc Medication (METOPROLOL TARTRATE 50 MG TABS) Unchanged Misc Medication (moringa) Unchanged simvastatin (simvastatin 20 mg oral tablet) 1 tab(s) by mouth Daily at bedtime Unchanged sucroferric oxyhydroxide (Velphoro 500 mg oral tablet, chewable) Please take this list to your next doctor s visit. Bring all medications you take, including over the counter medications, herbals and other supplements with you to your doctor s visit. Patients and families are reminded to discard old lists and to update any records with all medication providers or retail pharmacies. Education Materials Shortness of Breath (Dyspnea) Shortness of breath is the feeling that you can't catch your breath or get enough air. It is also known as dyspnea. Dyspnea can be caused by many different conditions. They include: Acute asthma attack Worsening of chronic lung diseases such as chronic bronchitis and emphysema Heart failure. This is when weak heart muscle allows extra fluid to collect in the lungs. Panic attacks or anxiety. Fear can cause rapid breathing (hyperventilation). Pneumonia, or an infection in the lung tissue Exposure to toxic substances, fumes, smoke, or certain medicines Blood clot in the lung (pulmonary embolism). This is often from a piece of blood clot in a deep vein of the leg (deep vein thrombosis) that breaks off and travels to the lungs. Heart attack or heart-related chest pain (angina) Anemia Collapsed lung (pneumothorax) Dehydration Based on your visit today, the exact cause of your shortness of breath is not certain. Your tests don t show any of the serious causes of dyspnea. You may need other tests to find out if you have a serious problem. It s important to watch for any new symptoms or symptoms that get worse. Follow up with your healthcare provider as directed. Home care Follow these tips to take care of yourself at home: When your symptoms are better, go back to your usual activities. If you smoke, you should stop. Join a quit-smoking program or ask your healthcare provider for help. Eat a healthy diet and get plenty of sleep. Get regular exercise. Talk with your healthcare provider before starting to exercise, especially ifyou have other medical problems. Cut down on the amount of caffeine and stimulants you consume. Follow-up care Follow up with your healthcare provider, or as advised. If tests were done, you will be told if your treatment needs to be changed. You can call as directed for the results. If an X-ray was taken, a specialist will review it. You will be notified of any new findings that may affect your care. Call 911 Shortness of breath may be a sign of a serious medical problem. For example, it may be a problem with your heart or lungs. Call 911 if you have worsening shortness of breath or trouble breathing, especially with any of the symptoms below: Confusion or difficulty waking Fainting or loss of consciousness. Fast or irregular heartbeat Coughing up blood Pain in your chest, arm, shoulder, neck, or upper back Sweating When to seek medical advice Call your healthcare provider right away if any of these occur: Slight shortness of breath or wheezing Redness, pain or swelling in your leg, arm, or other body area Swelling in both legs or ankles Fast weight gain Dizziness or weakness Fever of 100.4 F (38 C) or higher, or as directed by your healthcare provider [id number] [employer]. [address] [place] [address]. All rights reserved. This information is not intended as a substitute for professional medical care. Always follow yourhealthcare professional's instructions. Additional Information VACCINATE! IT SAVES LIVES! Members of the community who have not yet received the COVID-19 vaccine and would like to receive it can visit one of [facility] vaccine clinics. There are many vaccine clinic locations within the [facility]. For locations and available times, please visit [email or web address]/. It is important to note that some COVID mobile vaccine clinics are held outdoors and may be canceled in rainy or stormy conditions. To learn more about pediatric vaccinations (ages 5-11), we invite you to visit the [facility] webpage. [email or web address]/[email or web address] learn more about the COVID-19 vaccine, we invite you to visit the CDC website for a list of frequently asked questions. https://www.cdc.gov/coronavirus/2019-ncov/vaccines/faq.html [facility] Patient [facility] Access Instructions: Stay connected with your healthcare team and access your personal medical information anytime with the [facility]. If you would like a full copy of your medical records please contact the [facility] Medical Records Department Sunday through Sunday between 8a.m. and 4:30p.m. Please follow the directions below to access the portal: 1.Access the email account you provided upon registration to the [facility].2.Look for an invitation email from [facility].3.Open the email and access the invitation link: Accept Invitation to [facility] [employer]4.Fill in the required sood to create your account. Sign into [email or web address] with your username and password that you created in the above steps to stay up to date. You can then view a summary of results, a summary of your visits, and the ability to download your summaries to your computer or send the information securely to a physician. Remember that your healthcare information is confidential, so carefully consider who you will allow to register on the [facility] Portal for access to your information. You can also access the [facility] Patient Portal on the [employer]. Simply click on "Health Records" under "[facility]DaFanGo" and then click on the Ric logo. HOW TO SAFELY DISPOSE OF PRESCRIPTION MEDICATIONS Please use one of the following methods to safely dispose of your unused medications. 1.Use a drug disposal kit: the drug disposal pouch allows you to safely discard your old and unuseddrugs. Ask your nurse to give you one when you are discharged.2.Visit a local take-back location: Many local pharmacies and police departments have programs that collect old and unwanted prescriptiondrugs. Call your local pharmacy or go to [email or web address] to find one close to you.3.Make use of household items: Use cat litter or old coffee grounds to dispose medications if other options arenot available. Mix your drugs with these household products, seal them in an airtight container andthrow it into the garbage. Call [facility]: [phone] to be sure your drugs can be disposed of in this way. Some medicines may require a different approach.4.Never flush your medications down the toilet. IF YOU HAVE BEEN PRESCRIBED AN OPIOIDS FOR PAIN If you have been prescribed an opioid (such as hydrocodone, oxycodone or morphine), it is critical to understand the possible side effects and risks of opioid pain medications. Even when taken as directed, opioids can have several side effects including: Tolerance, meaning you might need to take more of a medication for the same pain relief. Nausea, vomiting and/or constipation. Sleepiness, dizziness, dry mouth, confusion, depression or itching. Physical dependence, meaning you have withdrawal symptoms when a medication is stopped ? this can develop within a few days. KNOW YOUR RESPONSIBILITIES It is important to know exactly how much and how often to take the opioid pain medications you are prescribed. Never take opioids in higher amounts or more often than prescribed. Do not combine opioids with alcohol or other drugs that cause drowsiness, such as benzodiazepines, also known as benzos,including diazepam and alprazolam, muscle relaxants or sleep aids. Never sell or share prescriptionopioids. This is illegal. Store opioids in a secure place and out of reach of others (including children, family, friends and visitors). The last page(s) of this document has been signed and retained as a CHART COPY Signatures Patient Education Materials Shortness of Breath (Dyspnea) Medication Leaflets My discharge plan and instructions have been reviewed and explained to me and I,CORRINE VELEZAWUTunderstand my current condition and have read and understand these discharge instructions. I have received a written copy of the plan/instructions. If I have questions, I am aware that I should contact my doctor. Patient/Web Services Professional Signature: Date/Time: Relationship to Patient: Witness Name/Signature: Date/Time: [facility]10-20-2024 Note ORIGINAL EXAMINATION: ONE XRAY VIEW OF THE CHEST 02/24/2024 11:30 pm COMPARISON: AP chest radiograph 02/05/2024. HISTORY: ORDERING SYSTEM PROVIDED HISTORY: Reason for Exam: SOB, Hx Dialysis FINDINGS: The lungs are without acute focal process. There is no effusion or pneumothorax. The cardiomediastinal silhouette enlarged is without acute process. The osseous structures are without acute process. Stable appearance of a left-sided single lead pacer/defibrillator. Unchanged sternotomy wires. IMPRESSION: No acute process. Interpreted by: Isacc Lofton Preliminary Report By: Isacc Lofton Electronically signed By Isacc Lofton Dictated Date: 02/24/2024 11:35:49 PM Prelim Date: 02/24/2024 11:36:51 PM Sign Date: 02/24/2024 11:36:51 PM [facility] Sinus rhythm Prolonged KS interval IVCD, consider atypical LBBB Electronic Signature: ELIAN GINA Connor DO 02/24/2024 23:16:16[facility] 10-01-2024 Hospital Discharge instructions Patient Education 02/05/2024 21:42:57 ED COVID-19 10 Things You Can Do To Manage Symptoms (06/2022) (Custom) If you have possible or confirmed COVID-19 02/05/2024 21:42:57 COVID-19 Prevent the Spread of COVID-19 If You Are Sick (09/23/2019) (Custom) Prevent the Spread of COVID-19 If You Are Sick Accessible version: https://www.cdc.gov/coronavirus/2019-ncov/jf-erl-eob-sick/oxajm-hskm-djfg.html If you are sick with COVID-19 or think you might have COVID-19, follow the steps below to help protect other people in your home and community. Stay home except to get medical care. Stay home. Most people with COVID-19 have mild illness and are able to recover at home without medical care. Do not leave your home, except to get medical care. Do not visit public areas. Take care of yourself. Get rest and stay hydrated. Get medical care when needed. Call your doctor before you go to their office for care. But, if you have trouble breathing or other concerning symptoms, call 911 for immediate help. Avoid public transportation, ride-sharing, or taxis. Separate yourself from other people and pets in your home. As much as possible, stay in a specific room and away from other people and pets in your home. Also, you should use a separate bathroom, if available. If you need to be around other people or animalsin or outside of the home, wear a cloth face covering. See COVID-19 and Animals if you have questions about pets: https://www.cdc.gov/coronavirus/2019ncov/faq.html#IRUCQ26zugrukd Monitor your symptoms. Common symptoms of COVID-19 include fever and cough. Trouble breathing is a more serious symptom that means you should get medical attention. Follow care instructions from your healthcare provider and local health department. Your local health authorities will give instructions on checking your symptoms and reporting information. If you develop emergency warning signs for COVID-19 get medical attention immediately. Emergency warning signs include*: Trouble breathing Persistent pain or pressure in the chest New confusion or not able to be woken Bluish lips or face *This list is not all inclusive. Please consult your medical provider for any other symptoms that are severe or concerning to you. Call 911 if you have a medical emergency. If you have a medical emergency and need to call 911, notify the concrete boom pump operator that you have or think you might have, COVID-19. If possible, put on a facemask before medical help arrives Call ahead before visiting your doctor. Call ahead. Many medical visits for routine care are being postponed or done by phone or telemedicine. If you have a medical appointment that cannot be postponed, call your doctor s office. This will help the office protect themselves and other patients. If you are sick, wear a cloth covering over your nose and mouth. You should wear a cloth face covering over your nose and mouth if you must be around other people or animals, including pets (even at home). You don t need to wear the cloth face covering if you are alone. If you can t put on a cloth face covering (because of trouble breathing for example), cover your coughs and sneezes in some other way.Try to stay at least 6 feet away from other people. This will help protect the people around you. Note: During the COVID-19 pandemic, medical grade facemasks are reserved for healthcare workers andsome first responders. You may need to make a cloth face covering using a scarf or bandana. Cover your coughs and sneezes. Cover your mouth and nose with a tissue when you cough or sneeze. Throw used tissues in a lined trash can. Immediately wash your hands with soap and water for at least 20 seconds. If soap and water are not available, clean your hands with an alcohol-based hand evp operations that contains at least 60% alcohol. Clean your hands often. Wash your hands often with soap and water for at least 20 seconds. This is especially important after blowing your nose, coughing, or sneezing; going to the bathroom; and before eating or preparing food. Use hand evp operations if soap and water are not available. Use an alcohol-based hand evp operations with atleast 60% alcohol, covering all surfaces of your hands and rubbing them together until they feel dry. Soap and water are the best option, especially if your hands are visibly dirty. \\ Avoid touching your eyes, nose, and mouth with unwashed hands. Avoid sharing personal household items. Do not share dishes, drinking glasses, cups, eating utensils, towels, or bedding with other people in your home. Wash these items thoroughly after using them with soap and water or put them in the plumber supervisor. Clean all high-touch surfaces everyday. Clean and disinfect high-touch surfaces in your sick room and bathroom. Let someone else clean and disinfect surfaces in common areas, but not your bedroom and bathroom. If a caregiver or other person needs to clean and disinfect a sick person s bedroom or bathroom, they should do so on an as-needed basis. The caregiver/other person should wear a mask and wait as long as possible after the sick person has used the bathroom High-touch surfaces include phones, remote controls, counters, tabletops, doorknobs, bathroom fixtures, toilets, keyboards, tablets, and bedside tables. Clean and disinfect areas that may have blood, stool, or body fluids on them. Use household media reconciliation specialist and disinfectants. Clean the area or item with soap and water or another detergent if it is dirty. Then use a household disinfectant. Be sure to follow the instructions on the label to ensure safe and effective use of the product. Many products recommend keeping the surface wet for several minutes to ensure germs are killed. Many also recommend precautions such as wearing gloves and making sure you have good ventilation during use of the product. Most EPA-registered household disinfectants should be effective. How to discontinue home isolation. People with COVID-19 who have stayed home (home isolated) can stop home isolation under the following conditions: If you will not have a test to determine if you are still contagious, you can leave home after these three things have happened: You have had no fever for at least 72 hours (that is three full days of no fever without the use ofmedicine that reduces fevers) AND other symptoms have improved (for example, when your cough or shortness of breath has improved) AND at least 10 days have passed since your symptoms first appeared. If you will be tested to determine if you are still contagious, you can leave home after these three things have happened: You no longer have a fever (without the use of medicine that reduces fevers) AND other symptoms have improved (for example, when your cough or shortness of breath has improved) AND you received two negative tests in a row, 24 hours apart. Your doctor will follow CDC guidelines. In all cases, follow the guidance of your healthcare provider and local health department. The decision to stop home isolation should be made in consultation with your healthcare provider and [facility] and local health departments. Local decisions depend on local circumstances. cdc.gov/coronavirus 02/05/2024 21:42:57 Vomiting (Adult) Vomiting (Adult) Vomiting is a common symptom that may be due to different causes. These include gastroenteritis ("stomach flu"), food poisoning and gastritis. There are other more serious causes of vomiting which may be hard to diagnose early in the illness. Therefore, it is important to watch for the warning signs listed below. The main danger from repeated vomiting is dehydration. This is due to excess loss of water and minerals from the body. When this occurs, your body fluids must be replaced. Home care If symptoms are severe, rest at home for the next 24 hours. Because your symptoms may be from an infection, wash your hands often and well. If soap and water are not available, use alcohol-based evp operations to keep from spreading the infection to others. Wash your hands for at least 20 seconds. Humming the happy birthday song twice while you wash is aneasy way to make sure you've washed for 20 seconds. Wash your hands after using the toilet, before and after preparing food, before eating food, after changing a diaper, cleaning a wound, caring for a sick person, and blowing your nose, coughing, or sneezing. You should also wash your hands after caring for someone who is sick, touching pet food, ortreats, and touching an animal, or animal waste. You may use acetaminophen or NSAID medicines like ibuprofen or naproxen to control fever, unless another medicine was prescribed. If you have chronic liver or kidney disease or ever had a stomach ulcer or gastrointestinal bleeding, talk with your doctor before using these medicines. Aspirin should never be used in anyone under 18 years of age who is ill with a fever. It may cause severe liver damage. Don't use NSAID medicines if you are already taking one for another condition (like arthritis) or are on aspirin (such as for heart disease, or after a stroke) Don't use tobacco and or drink alcohol, which may worsen your symptoms. If medicines for vomiting were prescribed, take as directed. Once vomiting stops, then follow these guidelines: During the first 12 to 24 hours follow the diet below: Fruit juices. Apple, grape juice, clear fruit drinks, and electrolyte replacement drinks. Beverages. Soft drinks without caffeine; mineral water (plain or flavored), decaffeinated tea and coffee. Soups. Clear broth and bouillon Desserts. Plain gelatin, ice pops, and fruit juice bars. As you feel better, you may add 6 to 8 ounces of yogurt per day. During the next 24 hours you may add the following to the above: Hot cereal, plain toast, bread, rolls, crackers Plain noodles, rice, mashed potatoes, chicken noodle or rice soup Unsweetened canned fruit such as applesauce, bananas (avoid pineapple and citrus) Limit caffeine and chocolate. No spices or seasonings except salt. During the next 24 hours: Gradually resume a normal diet, as you feel better and your symptoms lessen. Follow-up care Follow up with your healthcare provider, or as advised. When to seek medical advice Call your healthcare provider right away if any of these occur: Constant right-sided lower belly pain or increasing general belly pain Continued vomiting (unable to keep liquids down) for 24 hours Vomiting blood or coffee grounds Swollen belly Frequent diarrhea (more than 5 times a day); blood (red or black color) or mucus in diarrhea Reduced urine output or extreme thirst Weakness, dizziness or fainting Unusually drowsy or confused Fever of 100.4 F (38 C) oral or higher, or as directed Yellow color of the eyes or skin [id number] [employer]. [address] [place] [address]. All rights reserved. This information is not intended as a substitute for professional medical care. Always follow yourhealthcare professional's instructions. Follow Up Care 02/05/2024 18:43:35 With:ROSINA BLOOM Address: [address] [place] [phone] Business (1) When:2-4 days Comments:Take Paxlovid as prescribed, ondansetron as needed for nausea. Do not take your statin medicine while you are taking Paxlovid, you may resume this once you finish Paxlovid, return if any worsening orconcerning symptoms especially worsening abdominal pain, weakness, shortness of breath as discussed. [facility] 10-01-2024 Note Discharge Instructions Thank you for allowing [facility] to assist you with your healthcare needs. The following is importantdischarge information regarding your hospital visit. Diagnosis from Today's Visit COVID-19 Hypoglycemia Vomiting What to Do Next Instructions from Your Care Team No qualifying data available. Post Acute Orders No qualifying data available. You Need to Schedule the Following Appointments Follow Up with ROSINA BLOOM When:Within 2-4 days Where:[address] [place] [address] [phone] Business (1) Additional Information: Take Paxlovid as prescribed, ondansetron as needed for nausea. Do not take your statin medicine while you are taking Paxlovid, you may resume this once you finish Paxlovid, return if any worsening or concerning symptoms especially worsening abdominal pain, weakness, shortness of breath as discussed. Allergies [facility] Medications Please ask your primary doctor or pharmacist before taking any other medication not listed, including over the counter drugs, herbal medications, vitamins and or supplements as they may interact withyour home medications. What How Much When Instructions Last Dose New nirmatrelvir-ritonavir (Paxlovid 300 mg-100 mg Dose Pack oral tablet) 1 Packet(s) by mouth Two (2) times a day Duration: 5 Days Take two 150mg nirmatrelvir tabs and one 100mg ritonavir tab on day one. On days 2-5 take one 150mgnirmatrelvir tabs and one 100mg ritonavir once a day. Dialysis dosing protocol. Printed Prescription New ondansetron (ondansetron 4 mg oral tablet, disintegrating) 1 tab(s) by mouth Three (3) times a day Duration: 3 Days Printed Prescription Unchanged ammonium lactate topical (ammonium lactate 12% topical lotion) Unchanged aspirin (aspirin 81 mg oral delayed release tablet) 1 tab(s) by mouth Once a day Unchanged cholecalciferol (D3) by mouth Once a day Unchanged dapagliflozin (Farxiga 10 mg oral tablet) 1 tab(s) by mouth Once a day Unchanged DME (Blood Glucose Test Strips) See instructions one touch 1 bottle of 100 Checking BS once daily dx:diabetes Unchanged DME (Dexcom G6 Sensor) See instructions Place one sensor to the abdomen every 10 days. Use reader or phone ofelia for daily blood sugar checks. 1 month supply. Unchanged DME (Pen needles 8 mm) See instructions BD UF 8mm 31 G (short) qs 1 month supply Unchanged dulaglutide (Trulicity Pen 1.5 mg/ 0.5 mL subcutaneous solution) 0.5 Milliliter Subcutaneous Every week Duration: 90 Days rotate injection sites Unchanged fenofibrate (fenofibrate micronized 200 mg oral capsule) 1 cap by mouth Once a day Unchanged furosemide (Lasix 80 mg oral tablet) 1 tab(s) by mouth Two (2) times a day Duration: 30 Days Unchanged gabapentin (gabapentin 100 mg oral capsule) Unchanged hydrOXYzine (Atarax use hydrOXYzine hydrochloride ) 25 Milligram by mouth Four (4) times a day Unchanged insulin detemir (Levemir) (Levemir 100 units/ mL FlexPen 3 mL Pen) See instructions 58units BID Subcutaneous Unchanged insulin lispro (HumaLOG) (Insulin Lispro KwikPen 100 units/ mL injectable solution) 20 unit(s) Subcutaneous Three (3) times a day before meals Unchanged latanoprost ophthalmic (latanoprost 0.005% ophthalmic solution) 1 Drops Both eyes Once a day Unchanged metoprolol (Metoprolol Tartrate 50 mg oral tablet) Unchanged Misc Medication (moringa) Unchanged simvastatin (simvastatin 20 mg oral tablet) 1 tab(s) by mouth Daily at bedtime Unchanged sucroferric oxyhydroxide (Velphoro 500 mg oral tablet, chewable) Please take this list to your next doctor s visit. Bring all medications you take, including over the counter medications, herbals and other supplements with you to your doctor s visit. Patients and families are reminded to discard old lists and to update any records with all medication providers or retail pharmacies. Education Materials If you have possible or confirmed COVID-19 Prevent the Spread of COVID-19 If You Are Sick Accessible version: https://www.cdc.gov/coronavirus/2019-ncov/sj-tjc-nth-sick/whmgc-lwij-sbpi.html If you are sick with COVID-19 or think you might have COVID-19, follow the steps below to help protect other people in your home and community. Stay home except to get medical care. Stay home. Most people with COVID-19 have mild illness and are able to recover at home without medical care. Do not leave your home, except to get medical care. Do not visit public areas. Take care of yourself. Get rest and stay hydrated. Get medical care when needed. Call your doctor before you go to their office for care. But, if you have trouble breathing or other concerning symptoms, call 911 for immediate help. Avoid public transportation, ride-sharing, or taxis. Separate yourself from other people and pets in your home. As much as possible, stay in a specific room and away from other people and pets in your home. Also, you should use a separate bathroom, if available. If you need to be around other people or animalsin or outside of the home, wear a cloth face covering. See COVID-19 and Animals if you have questions about pets: https://www.cdc.gov/coronavirus/2019ncov/faq.html#NZSZJ05zmytkwa Monitor your symptoms. Common symptoms of COVID-19 include fever and cough. Trouble breathing is a more serious symptom that means you should get medical attention. Follow care instructions from your healthcare provider and local health department. Your local health authorities will give instructions on checking your symptoms and reporting information. If you develop emergency warning signs for COVID-19 get medical attention immediately. Emergency warning signs include*: Trouble breathing Persistent pain or pressure in the chest New confusion or not able to be woken Bluish lips or face *This list is not all inclusive. Please consult your medical provider for any other symptoms that are severe or concerning to you. Call 911 if you have a medical emergency. If you have a medical emergency and need to call 911, notify the concrete boom pump operator that you have or think you might have, COVID-19. If possible, put on a facemask before medical help arrives Call ahead before visiting your doctor. Call ahead. Many medical visits for routine care are being postponed or done by phone or telemedicine. If you have a medical appointment that cannot be postponed, call your doctor s office. This will help the office protect themselves and other patients. If you are sick, wear a cloth covering over your nose and mouth. You should wear a cloth face covering over your nose and mouth if you must be around other people or animals, including pets (even at home). You don t need to wear the cloth face covering if you are alone. If you can t put on a cloth face covering (because of trouble breathing for example), cover your coughs and sneezes in some other way.Try to stay at least 6 feet away from other people. This will help protect the people around you. Note: During the COVID-19 pandemic, medical grade facemasks are reserved for healthcare workers andsome first responders. You may need to make a cloth face covering using a scarf or bandana. Cover your coughs and sneezes. Cover your mouth and nose with a tissue when you cough or sneeze. Throw used tissues in a lined trash can. Immediately wash your hands with soap and water for at least 20 seconds. If soap and water are not available, clean your hands with an alcohol-based hand evp operations that contains at least 60% alcohol. Clean your hands often. Wash your hands often with soap and water for at least 20 seconds. This is especially important after blowing your nose, coughing, or sneezing; going to the bathroom; and before eating or preparing food. Use hand evp operations if soap and water are not available. Use an alcohol-based hand evp operations with atleast 60% alcohol, covering all surfaces of your hands and rubbing them together until they feel dry. Soap and water are the best option, especially if your hands are visibly dirty. \\ Avoid touching your eyes, nose, and mouth with unwashed hands. Avoid sharing personal household items. Do not share dishes, drinking glasses, cups, eating utensils, towels, or bedding with other people in your home. Wash these items thoroughly after using them with soap and water or put them in the plumber supervisor. Clean all high-touch surfaces everyday. Clean and disinfect high-touch surfaces in your sick room and bathroom. Let someone else clean and disinfect surfaces in common areas, but not your bedroom and bathroom. If a caregiver or other person needs to clean and disinfect a sick person s bedroom or bathroom, they should do so on an as-needed basis. The caregiver/other person should wear a mask and wait as long as possible after the sick person has used the bathroom High-touch surfaces include phones, remote controls, counters, tabletops, doorknobs, bathroom fixtures, toilets, keyboards, tablets, and bedside tables. Clean and disinfect areas that may have blood, stool, or body fluids on them. Use household media reconciliation specialist and disinfectants. Clean the area or item with soap and water or another detergent if it is dirty. Then use a household disinfectant. Be sure to follow the instructions on the label to ensure safe and effective use of the product. Many products recommend keeping the surface wet for several minutes to ensure germs are killed. Many also recommend precautions such as wearing gloves and making sure you have good ventilation during use of the product. Most EPA-registered household disinfectants should be effective. How to discontinue home isolation. People with COVID-19 who have stayed home (home isolated) can stop home isolation under the following conditions: If you will not have a test to determine if you are still contagious, you can leave home after these three things have happened: You have had no fever for at least 72 hours (that is three full days of no fever without the use ofmedicine that reduces fevers) AND other symptoms have improved (for example, when your cough or shortness of breath has improved) AND at least 10 days have passed since your symptoms first appeared. If you will be tested to determine if you are still contagious, you can leave home after these three things have happened: You no longer have a fever (without the use of medicine that reduces fevers) AND other symptoms have improved (for example, when your cough or shortness of breath has improved) AND you received two negative tests in a row, 24 hours apart. Your doctor will follow CDC guidelines. In all cases, follow the guidance of your healthcare provider and local health department. The decision to stop home isolation should be made in consultation with your healthcare provider and state and local health departments. Local decisions depend on local circumstances. cdc.gov/coronavirus Vomiting (Adult) Vomiting is a common symptom that may be due to different causes. These include gastroenteritis ("stomach flu"), food poisoning and gastritis. There are other more serious causes of vomiting which may be hard to diagnose early in the illness. Therefore, it is important to watch for the warning signs listed below. The main danger from repeated vomiting is dehydration. This is due to excess loss of water and minerals from the body. When this occurs, your body fluids must be replaced. Home care If symptoms are severe, rest at home for the next 24 hours. Because your symptoms may be from an infection, wash your hands often and well. If soap and water are not available, use alcohol-based evp operations to keep from spreading the infection to others. Wash your hands for at least 20 seconds. Humming the happy birthday song twice while you wash is aneasy way to make sure you've washed for 20 seconds. Wash your hands after using the toilet, before and after preparing food, before eating food, after changing a diaper, cleaning a wound, caring for a sick person, and blowing your nose, coughing, or sneezing. You should also wash your hands after caring for someone who is sick, touching pet food, ortreats, and touching an animal, or animal waste. You may use acetaminophen or NSAID medicines like ibuprofen or naproxen to control fever, unless another medicine was prescribed. If you have chronic liver or kidney disease or ever had a stomach ulcer or gastrointestinal bleeding, talk with your doctor before using these medicines. Aspirin should never be used in anyone under 18 years of age who is ill with a fever. It may cause severe liver damage. Don't use NSAID medicines if you are already taking one for another condition (like arthritis) or are on aspirin (such as for heart disease, or after a stroke) Don't use tobacco and or drink alcohol, which may worsen your symptoms. If medicines for vomiting were prescribed, take as directed. Once vomiting stops, then follow these guidelines: During the first 12 to 24 hours follow the diet below: Fruit juices. Apple, grape juice, clear fruit drinks, and electrolyte replacement drinks. Beverages. Soft drinks without caffeine; mineral water (plain or flavored), decaffeinated tea and coffee. Soups. Clear broth and bouillon Desserts. Plain gelatin, ice pops, and fruit juice bars. As you feel better, you may add 6 to 8 ounces of yogurt per day. During the next 24 hours you may add the following to the above: Hot cereal, plain toast, bread, rolls, crackers Plain noodles, rice, mashed potatoes, chicken noodle or rice soup Unsweetened canned fruit such as applesauce, bananas (avoid pineapple and citrus) Limit caffeine and chocolate. No spices or seasonings except salt. During the next 24 hours: Gradually resume a normal diet, as you feel better and your symptoms lessen. Follow-up care Follow up with your healthcare provider, or as advised. When to seek medical advice Call your healthcare provider right away if any of these occur: Constant right-sided lower belly pain or increasing general belly pain Continued vomiting (unable to keep liquids down) for 24 hours Vomiting blood or coffee grounds Swollen belly Frequent diarrhea (more than 5 times a day); blood (red or black color) or mucus in diarrhea Reduced urine output or extreme thirst Weakness, dizziness or fainting Unusually drowsy or confused Fever of 100.4 F (38 C) oral or higher, or as directed Yellow color of the eyes or skin [id number] [employer]. [address] [place] [address], [place] [address]. All rights reserved. This information is not intended as a substitute for professional medical care. Always follow yourhealthcare professional's instructions. Additional Information VACCINATE! IT SAVES LIVES! Members of the community who have not yet received the COVID-19 vaccine and would like to receive it can visit one of [facility] vaccine clinics. There are many vaccine clinic locations within the [facility]. For locations and available times, please visit [email or web address].[email or web address]/. It is important to note that some COVID mobile vaccine clinics are held outdoors and may be canceled in rainy or stormy conditions. To learn more about pediatric vaccinations (ages 5-11), we invite you to visit the [facility] webpage. [email or web address]/[email or web address] [email or web address] learn more about the COVID-19 vaccine, we invite you to visit the CDC website for a list of frequently asked questions. https://www.cdc.gov/coronavirus/2019-ncov/vaccines/faq.html [place] [facility] Patient Portal Access Instructions: Stay connected with your healthcare team and access your personal medical information anytime with the [facility] Patient Portal. If you would like a full copy of your medical records please contact the [facility] Medical Records Department Sunday through Sunday between 8a.m. and 4:30p.m. Please follow the directions below to access the portal: 1.Access the email account you provided upon registration to the hospital.2.Look for an invitation email from [facility].3.Open the email and access the invitation link: Accept Invitation to [facility]4.Fill in the required sood to create your account. Sign into www.[employer] with your username and password that you created in the above steps to stay up to date. You can then view a summary of results, a summary of your visits, and the ability to download your summaries to your computer or send the information securely to a physician. Remember that your healthcare information is confidential, so carefully consider who you will allow to register on the [facility] Patient Portal for access to your information. You can also access the [facility] Patient Portal on the [employer]. Simply click on "Health Records" under "HealthData" and then click on the [employer] logo. HOW TO SAFELY DISPOSE OF PRESCRIPTION MEDICATIONS Please use one of the following methods to safely dispose of your unused medications. 1.Use a drug disposal kit: the drug disposal pouch allows you to safely discard your old and unuseddrugs. Ask your nurse to give you one when you are discharged.2.Visit a local take-back location: Many local pharmacies and police departments have programs that collect old and unwanted prescriptiondrugs. Call your local pharmacy or go to [email or web address] to find one close to you.3.Make use of household items: Use cat litter or old coffee grounds to dispose medications if other options arenot available. Mix your drugs with these household products, seal them in an airtight container andthrow it into the garbage. Call [facility]: [phone] to be sure your drugs can be disposed of in this way. Some medicines may require a different approach.4.Never flush your medications down the toilet. IF YOU HAVE BEEN PRESCRIBED AN OPIOIDS FOR PAIN If you have been prescribed an opioid (such as hydrocodone, oxycodone or morphine), it is critical to understand the possible side effects and risks of opioid pain medications. Even when taken as directed, opioids can have several side effects including: Tolerance, meaning you might need to take more of a medication for the same pain relief. Nausea, vomiting and/or constipation. Sleepiness, dizziness, dry mouth, confusion, depression or itching. Physical dependence, meaning you have withdrawal symptoms when a medication is stopped ? this can develop within a few days. KNOW YOUR RESPONSIBILITIES It is important to know exactly how much and how often to take the opioid pain medications you are prescribed. Never take opioids in higher amounts or more often than prescribed. Do not combine opioids with alcohol or other drugs that cause drowsiness, such as benzodiazepines, also known as benzos,including diazepam and alprazolam, muscle relaxants or sleep aids. Never sell or share prescriptionopioids. This is illegal. Store opioids in a secure place and out of reach of others (including children, family, friends and visitors). The last page(s) of this document has been signed and retained as a CHART COPY Signatures Patient Education Materials ED COVID-19 10 Things You Can Do To Manage Symptoms (06/2022) (Custom) COVID-19 Prevent the Spread of COVID-19 If You Are Sick (09/23/2019) (Custom) Vomiting (Adult) Medication Leaflets My discharge plan and instructions have been reviewed and explained to me and I,JUNTASORN, PEERAWUTunderstand my current condition and have read and understand these discharge instructions. I have received a written copy of the plan/instructions. If I have questions, I am aware that I should contact my doctor. Patient/Web Services Professional Signature: Date/Time: Relationship to Patient: Witness Name/Signature: Date/Time: [facility]10-01-2024 Note ORIGINAL EXAMINATION: ONE XRAY VIEW OF THE CHEST02/05/2024 8:43 pm COMPARISON: None available at time of dictation. HISTORY: ORDERING SYSTEM PROVIDED HISTORY: Reason for Exam: fever, cough FINDINGS: LINES/TUBES: Left-sided AICD with a lead overlying the heart. Cardiomegaly. Mildly enlarged cardiomediastinal silhouette may be related to positioning. Prominent interstitial markings and mild pulmonary vascular congestion. No pneumothorax or large pleural effusion. No acute osseous abnormalities. Sternotomy wires. IMPRESSION: Cardiomegaly with pulmonary vascular congestion and prominent interstitial markings may represent developing pulmonary edema in the appropriate clinical setting. Underlying atypical infectious/inflammatory process is not excluded. I have personally reviewed the images of this examination and agree with the resident's findings and interpretation. Interpreted by: Michael Ponce MD Preliminary Report By: Morteza Dawson Electronically signed By Michael Ponce MD Dictated Date: 02/05/2024 9:19:57 PM Prelim Date: 02/05/2024 9:22:12 PM Sign Date: 02/06/2024 12:13:12 AM Ordering Provider: [facility]04-25-2024 Instructions* Patient Instructions* Andrea Gillis MD - 08/30/2023 8:51 AM EDT We need the following tests to be done for your transplant listing: Exercise nuclear stress test. Pharmacologic acceptable if exercise not adequate. Echocardiogram ICD interrogation [facility] History of Present illness Narrative* Andrea Gillis MD - 08/30/2023 8:00 AM EDT Images from the original note were not included. [facility] [place] Department of Cardiovascular Medicine SECTION OF CLINICAL CARDIOLOGY OUTPATIENT VISIT DATE August 30, 2023 OUTPATIENT VISIT TYPE CONSULTATION PRIMARY CARE PHYSICIAN: To use this Smartlink, specify the provider ID whose address you want to display, e.g., .PROVADDR[1(where 1 is the provider ID). REFERRING PHYSICIAN Denise Albright [address] [place] [address] CHIEF COMPLAINT: Preop Evaluation HISTORY OF PRESENT ILLNESS: Cardiac consultation at the request of Dr. Denise Albright.A copy of this consultation note will be provided to the requesting physician by way of shared Medical record or letter to requesting physician via US mail. Mr. Velez is a 67 year old male who is seen today for evaluation prior to renal transplant. Cardiac hx includes CAD s/p CABG remotely in 1999 or 2000. He subsequently had a PPM placed. Some notesstate it is an ICD but records are not available. He follows in [place] [facility]. He denies any cardiac sx's other than intermittent LE edema. He is only minimally active. He denies abdominal distention, chest pain, shortness of breath, orthopnea, cough, palpitations, PND, lightheadedness or syncope. PAST MEDICAL HISTORY Diagnosis Date Abnormal stress test Angina decubitus (HCC) Atherosclerosis of coronary artery bypass graft Chronic renal failure, stage 5 (HCC) Chronic systolic (congestive) heart failure (HCC) Essential hypertension Fatty liver Hypertriglyceridemia Ischemic cardiomyopathy Long-term use of high-risk medication Old myocardial infarction Presence of cardiac defibrillator Pulmonary hypertension (HCC) Pure hypercholesterolemia Type 2 diabetes mellitus (HCC) PAST SURGICAL HISTORY Procedure Laterality Date CABG (4) VEIN GRAFTS & ARTERIAL GRAFT(S) 2000 CREATION OF AVF, PERCUTANEOUS USING MAGNETIC-GUIDED ARTERIAL AND VENOUS CATHETERS AND RADIOFREQUENCY ENERYGY PERMANENT PACEMAKER SOCIAL HISTORY Social History Tobacco Use Smoking status: Former Types: Cigarettes Smokeless tobacco: Never Vaping Use Vaping Use: Never used Substance Use Topics Alcohol use: Not Currently Drug use: Never FAMILY HISTORY Problem Relation Age of Onset Heart Maternal Grandfather ALLERGIES: ALLERGIES No Known Allergies MEDICATIONS: amiodarone (PACERONE) 200 mg tablet TAKE 1/2 (ONE-HALF) OF A TABLET BY MOUTH DAILY for heart aspirin, enteric coated (ECOTRIN LOW STRENGTH) 81 mg EC tablet Take by mouth. Cholecalciferol, Vitamin D3, 50 mcg (2,000 unit) cap Take by mouth. G1-S5-CTCI-cord-rhod-P.ginseng 30-67-56-400 mg cap cordyceps FARXIGA 10 mg tablet Take 1 tablet by mouth every afternoon. furosemide (LASIX) 80 mg tablet Take 1 tablet by mouth every 12 hours. gabapentin (NEURONTIN) 100 mg capsule Take 1 capsule by mouth every afternoon. insulin lispro (HUMALOG KWIKPEN) 100 unit/mL Inject 12 units subcutaneously before each meal and/or4 units before snack, max daily dose 48 Unit hydrOXYzine pamoate (VISTARIL) 25 mg capsule Take by mouth q 8 HR. LEVEMIR FLEXPEN 100 unit/mL (3 mL) injection pen INJECT 58 units under skin twice daily metoprolol tartrate, short acting, (LOPRESSOR) 25 mg tablet Take 1 tablet by mouth every 12 hours. semaglutide (OZEMPIC) 1 mg/dose (4 mg/3 mL) pen Inject 1 mg subcutaneously. semaglutide (OZEMPIC) 0.25 mg or 0.5 mg(2 mg/1.5 mL) pen Inject 0.5 mg subcutaneously. simvastatin (ZOCOR) 20 mg tablet Take 20 mg by mouth daily at bedtime. TRULICITY 1.5 mg/0.5 mL pen injector INJECT one pen OF solution INTRAMUSCULARLY weekly VELPHORO 500 mg chew CRUSH OR CHEW AND SWALLOW 1 TABLET 3 TIMES A DAY WITH MEALS REVIEW OF SYSTEMS: GENERAL: Negative for: Weight loss or gain, Fever or Chills, Weakness and Sleep difficulties. HEENT: Negative for: Headache, Impaired Vision, Glasses, Hearing Impairment, Ringing in Ears, Nosebleeds, Poor dental care, Bleeding Gums, Dentures NECK: Negative for: Swelling, Pain, Stiffness RESPIRATORY: Negative for: Cough, Blood in Sputum, Shortness of breath, Wheezing, Apnea GASTROINTESTINAL: Negative for: Trouble swallowing, Heartburn, Change in bowel habits, Blood in stool, Dark black stools MUSCULOSKELETAL: Negative for: Muscle or joint pain, Stiffness , Joint swelling NEUROLOGIC/PSYCHIATRIC: Negative for: Weakness, Paralysis, Numbness, Tingling, Tremor, Nervousness,Depressed mood, Memory loss SKIN: Negative for: Rashes, Itching HEMATOLOGICAL/LYMPHATIC: Negative for: Easy bruising , Easy bleeding ENDOCRINE: Negative for: Heat or cold intolerance, Excessive sweating, Frequent urination, Frequentthirst PHYSICAL EXAMINATION: BP 130/78 (BP Site: Left Arm) Pulse 81 Ht 154.9 cm (5' 1") Wt 89.8 kg (198 lb) SpO2 95% BMI 37.41 kg/m General: Well appearing, in no acute distress. Neck: No jugular venous distention, no carotid bruits, carotids have a normal upstroke, no palpablethyromegaly. Lungs: Clear to auscultation bilaterally, no wheezing or rhonchi. Heart: Regular rhythm, PMI not displaced, S1, S2 normal, no S3, no S4, no heaves, no rub and no murmur. Extremities: No peripheral edema . Grade 2/4 distal pulses bilaterally. Neuro: Oriented to person, place and time, alert, cooperative, gait coordinated. CARDIOVASCULAR MEDICINE TESTING: ECG 08/30/2023 CT ABD/PEL WO IVCON 04/24/2023 IMPRESSION: Aortoiliac calcifications, as detailed. Suspected 1.5 cm calcified left renal artery aneurysm. Anterior abdominal wall skin thickening. Correlate with physical exam. LABS Latest Ref Rng 04/24/2023 Protein, Total 6.3 - 8.0 g/dL 7.8 Albumin 3.9 - 4.9 g/dL 4.4 Calcium 8.5 - 10.2 mg/dL 9.5 Bilirubin, Total 0.2 - 1.3 mg/dL 0.4 Alkaline Phosphatase 38 - 113 U/L 39 AST 14 - 40 U/L 24 ALT 10 - 54 U/L 14 Glucose 74 - 99 mg/dL 146 (H) BUN 9 - 24 mg/dL 48 (H) Creatinine 0.73 - 1.22 mg/dL 5.45 (H) Sodium 136 - 144 mmol/L 139 Potassium 3.7 - 5.1 mmol/L 4.4 Chloride 97 - 105 mmol/L 97 CO2 22 - 30 mmol/L 28 Anion Gap 9 - 18 mmol/L 14 eGFR >=60 mL/min/1.73m 11 (L) WBC 3.70 - 11.00 k/uL 9.41 RBC 4.20 - 6.00 m/uL 4.56 Hemoglobin 13.0 - 17.0 g/dL 12.1 (L) Hematocrit 39.0 - 51.0 % 37.9 (L) MCV 80.0 - 100.0 fL 83.1 MCH 26.0 - 34.0 pg 26.5 MCHC 30.5 - 36.0 g/dL 31.9 RDW-CV 11.5 - 15.0 % 12.6 Platelet Count 150 - 400 k/uL 223 MPV 9.0 - 12.7 fL 11.0 Absolute nRBC <0.01 k/uL <0.01 Legend: (H) High (L) Low LHC 2014: Occluded SVG-RCA. Otherwise patent grafts. Echo 2020: EF 55% with no significant valvular disease. I have personally reviewed the Electrocardiogram. IMPRESSION: Mr. Velez is a 67 year old male with CAD s/p CABG, ICM with ICD implant with apparently improved EF here for preop evaluation prior to renal transplant. PLAN AND RECOMMENDATIONS: Patient revascularized. At time of last cath, his graft anatomy was acceptable but this was in 2014. Recommend stress testing for ischemic evaluation. Also recommend Echo to assess his EF; last checkin 2019 showed normal EF and no significant structural abnormality. If these do not show high risk findings then he can proceed with the understanding that he is at elevated risk with his reduced functional capacity. It is unclear why he is on amiodarone. Recommend interrogation of his device to ensure no arrhythmias present. 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 I personally interviewed, confirmed and edited the above information as obtained by others. CONTACT INFORMATION: Andrea Gillis MD, [facility] Section of Clinical Cardiology [place] Department of Cardiovascular Medicine Heart and Vascular [place] [facility] Desk [id number] [address] Office - [phone] extension [phone] Office Appointments: [phone] -[phone] extension [phone] Voice recognition software was used in the creation of this document. There may be unintended errors in spelling, grammar, syntax or punctuation present. documented in this encounterOhiohealth Marion [facility] Hospital04-18-2024 Miscellaneous Notes* Telephone Encounter - Chandra Jenkins RN - 08/23/2023 6:18 PM EDT Nurse called pt with appt reminder. Pt was provided date time and location of all appt. Also instructed to go to lab same day. Pt verbalized his understanding. Chandra Jenkins RN * Telephone Encounter - Nae Guevara II - 07/24/2023 3:38 PM EDT Patient called regarding status, states he hasn't heard from anyone in 3 months. Please give patient a return call documented in this encounterOhiohealth Marion [facility] Hospital02-19-2024 History of Present illness Narrative* Chandra Jenkins RN - 06/25/2023 4:21 PM EST Patient completed transplant education on 04/24/2023 using version November 20, 2022 of transplant evaluation informed consent. Transplant evaluation started on 04/24/2023 Consent signed on 04/24/2023 with incorrect version of 03-07-2021 noted. The correct version provided and was used for education is November 20, 2022. Chandra Jenkins RN documented in this encounterOhiohealth [facility] Hospital11-02-2023 Miscellaneous Notes* Telephone Encounter - Zita Jacobsen - 03/08/2023 7:25 AM EDT Spoke with patient's social science research assistant from dialysis center previously, advised her of kidney transplant evaluation appointments and sent schedule to the patient by regular mail, per request. Zita Jacobsen documented in this encounterOhiohealth Marion [facility] Hospital09-07-2023 History and physical note Author Julio cMclendon [facility] January 11, 2023 12:58pm Note Date/Time January 11, 2023 12:58pm [facility] Medical Records Department [address] [place] [address] History & Physical Exam 01/11/23 1256 MR#: [id number] Acct: [id number] Name: KAUR VELEZ Rep #:[id number] : 1955 67 From: Julio Mcclendon MD PCP: Dr. Manuel Sandoval MD Status:[facility] Location: [facility] History and Physical Date of Admission: 01/11/23 67-year-old gentleman. I saw him November 30, 2022 because of complaint of bleedingat his right forearm radiocephalic arteriovenous hemodialysis fistula site. We tentatively have him scheduled for a fistulogram but my understanding is that that has been delayed until today. He claims that some days the fistula runs well some days it does not with need to hold extra pressure. My previous concerns was that the patient has some slight aneurysmal change of the fistula and that he is repetitively accessed at the sites of aneurysm. Previous notes reflect Visit Reasons: BLEEDING AT ACCESS SITE Chief Complaint: BLEEDING AT ACCESS SITE Allergies No Known Allergies Allergy (Verified 11/30/22 14:40) Medications aspirin 81 mg chewable tablet 81 mg PO DAILY@0800 heart health 03/10/14 [History Confirmed 11/30/22] gabapentin 100 mg capsule 100 mg PO DAILY 03/03/21 [History Confirmed 11/30/22] hydroxyzine HCl 25 mg tablet 25 mg PO Q8H PRN Allergy Symptoms 09/01/21 [History Confirmed 11/30/22] fenofibrate micronized 200 mg capsule 200 mg PO DAILY #30 caps 04/10/22 [Rx Confirmed 11/30/22] furosemide 80 mg tablet 80 mg PO BID #60 tabs 04/27/22 [Rx Confirmed 11/30/22] cholecalciferol (vitamin D3) 50 mcg (2,000 unit) capsule 50 mcg PO DAILY 05/23/22 [History Confirmed 11/30/22] sucroferric oxyhydroxide 500 mg chewable tablet (Velphoro) 500 mg PO QPC 05/23/22 [History Confirmed 11/30/22] amiodarone 200 mg tablet See Rx Instructions .Route .COMPLEX #45 tabs 09/20/22 [Rx Confirmed 11/30/22] simvastatin 20 mg tablet See Rx Instructions .Route .COMPLEX #90 tabs 09/20/22 [Rx Confirmed 11/30/22] insulin detemir U-100 100 unit/mL (3 mL) subcutaneous pen (Levemir FlexPen) 58 unit subcut BID 10/12/22 [History Confirmed 11/30/22] metoprolol tartrate 25 mg tablet 25 mg PO BID #180 tabs 10/12/22 [Rx Confirmed 11/30/22] PFSH Medical History Abnormal stress test Angina decubitus Atherosclerosis of coronary artery bypass graft without angina pectoris Chronic renal failure, stage 5 Chronic systolic congestive heart failure Edema Essential hypertension Family history of hypertension Fatty liver Hypertriglyceridemia Ischemic cardiomyopathy Long-term use of high-risk medication Old myocardial infarction Presence of cardiac defibrillator (~08/2004) Pulmonary hypertension Pure hypercholesterolemia Tachycardia Type 2 diabetes mellitus Surgical History Aortocoronary bypass status (~02/22/03) History of permanent cardiac pacemaker placement Family History Mother HypertensionSister Hypertension Social History Smoking Status: Former smoker alcohol intake: never substance use type: does not use caffeine: No HPI HPI HPI: 66-year-old gentleman is being referred by [facility] [place] for increased bleeding from his AV fistula. I have most recently assisted him on June 07, 2022 because of diminished flow and bleeding of the right forearm radiocephalic arteriovenous hemodialysis fistula. There is proximal fistula venous stenosis and moderate outflow brachiocephalic stenosis. The proximal fistula was treated with a 5 x 2 Cutting Balloon and a 6 x 2 conquest angioplasty. The more central veins were not treated at this setting as double access wasnoted obtained. My thought was using a 7 x 2 conquest balloon of the proximal fistula adjacent to radial artery if required in the future. The patient states that the blood flow was better after his most recent procedure June 07, 2022 but that he continued to have bleeding issues at thattime. He states that he is expressly referred at this time because of bleeding issues. Exam Const General: cooperative, comfortable and no acute distress [facility] Head: normal to inspection Eyes General: appearance normal, both eyes and all related structures Chest Chest palpation & inspection: normal inspection of the chest Resp Effort & Inspection: normal respiratory effort Auscultation: clear to auscultation bilaterally Cardio Rate: regular rate Rhythm: regular rhythm GI Palpation: soft Musc Cervical Spine: normal cervical lordosis Neuro General: patient alert, patient awake and patient oriented x3 Extrem Other: Right upper extremity has a functioning radiocephalic arteriovenous hemodialysisfistula. There is 2 areas of slight aneurysmal change. There is a pulse thrilland bruit noted. On ultrasound inspection the arterial anastomosis appears to be patent as does the very proximal portion of the fistula that is noted there is 2 slight aneurysmal areas of change the cephalic vein appears to be patent and in the proximal forearm and upper arm. There is a nice audible bruit throughout. Psych Appearance: grossly teo Assessment & Plan Assessment/Plan (1) Problem with dialysis access: QUALIFIERS: Encounter type: initial encounter Qualified Code(s): T82.898A - Other specified complication of vascular prosthetic devices, implantsand grafts, initial encounter PLAN: I am not sure today whether we will need to do single access or double access technique. Because his complaint is ready bleeding I will propose a antegrade access with flow anticipating some type of venous outflow obstruction. He has had an opportunity to ask and have questions answered. We will proceed as noted. Julio Mcclendon M.D., F.A.C.S. 01/11/23 [id number] <Electronically signed by Julio Mcclendon MD> Cosigner Signature (if applicable): CC: Dr. Manuel Sandoval MD; Dr. Julio Mcclendon MD~ Signed [facility] Work Phone: [phone]) 186-312409-07-2023 Procedure [facility] 12-06-2022 Miscellaneous Notes* Telephone Encounter - Zita Jacobsen - 12/06/2022 12:15 PM EDT Called Kaur Velez without success regarding their previous call-Kidney Transplant. Could not leave a message, as voicemail is full. Zita Jacobsen documented in this encounterOhiohealth [facility] Hospital07-17-2023 Miscellaneous Notes* Telephone Encounter - Zita Jacobsen - 11/20/2022 4:25 PM EDT 2nd call to patient regarding kidney transplant referral, called a couple of times, phone answers, then hangs up, letter sent. Zita Jacobsen * Telephone Encounter - Zita Jacobsen - 11/14/2022 3:07 PM EDT Called Kaur Velez without success regarding referral-Kidney Transplant. Voicemail message was left for patient to call our office. Zita Jacobsen documented in this encounterOhiohealth [facility] Hospital02-01-2023 Procedure [facility]02-01-2023 History and physical note Author Dr. Mcclendon [facility] June 07, 2022 8:50am Note Date/Time June 07, 2022 8 :50am [facility] Medical Records Department [address] [place] [address] History & Physical Exam 06/07/22 0848 MR#: [id number] Acct: [id number] Name: KAUR VELEZ Rep #:[id number] : 1955 66 From: Julio Mcclendon MD PCP: Dr. Manuel Sandoval MD Status:[facility] Location: [facility] History and Physical Date of Admission: 06/07/22 Visit Reasons:?FISTULAGRAM Chief Complaint: Fistulagram Educational Aide Required: No Is patient in pain?: No Allergies No Known Allergies Allergy (Verified 05/23/22 13:35) Medications aspirin 81 mg chewable tablet 81 mg PO DAILY@0800 [facility] 03/10/14 [History Confirmed 05/23/22] gabapentin 100 mg capsule 100 mg PO DAILY 03/03/21 [History Confirmed 05/23/22] hydroxyzine HCl 25 mg tablet 25 mg PO Q8H PRN 09/01/21 [History Confirmed 05/23/22] metoprolol tartrate 25 mg tablet 25 mg PO BID 11/17/21 [History Confirmed 05/23/22] amiodarone 200 mg tablet 100 mg PO DAILY heart #45 tabs 03/07/22 [Rx Confirmed 05/23/22] simvastatin 20 mg tablet 20 mg PO QHS cholesterol #90 tabs 03/07/22 [Rx Confirmed 05/23/22] fenofibrate micronized 200 mg capsule 200 mg PO DAILY #30 caps 04/10/22 [Rx Confirmed 05/23/22] furosemide 80 mg tablet 80 mg PO BID #60 tabs 04/27/22 [Rx Confirmed 05/23/22] cholecalciferol (vitamin D3) 50 mcg (2,000 unit) capsule 50 mcg PO DAILY 05/23/22 [History Confirmed 05/23/22] glucagon 3 mg/actuation nasal spray (Baqsimi) 3 mg intranasal ONCE 05/23/22 [History Confirmed 05/23/22] insulin detemir U-100 100 unit/mL (3 mL) subcutaneous pen (Levemir FlexPen) 48 unit subcut BID 05/23/22 [History Confirmed 05/23/22] insulin lispro 100 unit/mL subcutaneous pen (Humalog KwikPen (U-100) Insulin) 10unit subcut TID 05/23/22 [History Confirmed 05/23/22] semaglutide 0.25 mg or 0.5 mg (2 mg/1.5 mL) subcutaneous pen injector (Ozempic) 0.5 mg subcut QWEEK 05/23/22 [History Confirmed 05/23/22] sucroferric oxyhydroxide 500 mg chewable tablet (Velphoro) 500 mg PO QPC 05/23/22 [History Confirmed 05/23/22] PFSH Medical History? Abnormal stress test Angina decubitus Atherosclerosis of coronary artery bypass graft without angina pectoris Chronic renal failure, stage 5 Chronic systolic congestive heart failure Edema Essential hypertension Family history of hypertension Fatty liver Hypertriglyceridemia Ischemic cardiomyopathy Long-term use of high-risk medication Old myocardial infarction Presence of cardiac defibrillator (~08/2004) Pulmonary hypertension Pure hypercholesterolemia Tachycardia Type 2 diabetes mellitus Surgical History? Aortocoronary bypass status (~02/22/03) History of permanent cardiac pacemaker placement Family History? Mother HypertensionSister Hypertension Social History? Smoking Status:? Former smoker alcohol intake:? never substance use type:? does not use caffeine:? No HPI HPI HPI: Patient is a 66 y/o M I am following for chronic renal failure stage V. Patient was evaluated for decreased flow rates and prolonged bleeding. Patient notes hissymptoms have been going on for 1 month. Patient's access flow rate was 429 in March and last month, April, was 260. Patient notes minimal amount of discomfort with needle insertion. He states he had to be taken off an hour early due to the machine alarms sounding. Patient is currently maintained on daily aspirin. Patient's last fistulogram was performed on 05/31/21 demonstrating high-grade proximal fistula venous stenosis. A 6 x 2 Powerflex angioplasty and 6 x 2 conquest angioplasty was performed with success. ROS General General: No weight change, appetite, fatigue, colon cancer, breast cancer or weakness HEENT HEENT: No difficulty swallowing, eye injury, eye surgery, swollen glands or hoarseness Endo Endocrine: Yes diabetes mellitus; No thyroid disease, thyroid cancer, Hair loss, heat intolerance or cold intolerance Skin Skin: No rash or changing moles Breast Breast: No left breast lump, right breast lump, nipple discharge, breast pain, abnormal mammogram, abnormal US or breast enlargement Musc Musculoskeletal: Yes gout; No back problems, arthritis, rheumatoid arthritis or joint pain Additional Details: muscle aches/myalgia (Bilat LE when has dialysis) and balance problems (ambulates with a cane) Cardio Cardiovascular: Yes heart disease and high blood pressure; No murmur, pacemaker, atrial fibrillation, heart attack, heart stent, palpitations, shortness of breat with exertion or chest pain Additional Details: ICD placement Psych Psychiatric: No depression, anxiety or hearing voices Resp Respiratory: No shortness of breath, No sleep apnea, No cough, No COPD, No asthma, No emphysema and No wheezing Gastro Gastrointestinal: No abdominal pain, No nausea or vomiting, No diarrhea, No constipation, No blood in stool, No acid reflux, No hemorrhoids, No ulcers, No gallbladder problem and No black,tarry stools Jose Hematologic: No blood thinners, No blood disorders, No bleeding, No anemia and No blood clots Neuro Neurologic: No system reviewed and no additional complaints, except as documented, No as per HPI, No abnormal gait, No abnormal hearing, No abnormal movements, No abnormal speech, No behavioral changes, No burning sensations, No confusion, No convulsions, No disequilibrium, No dizziness, No localized weakness, No frequent falls, No headache(s), No lack of coordination, No loss ofvision, No memory loss, No numbness, No other visual disturbances, No radicular pain, No restless legs, No sensory deficit, No syncope, No tingling, No tremor(s), No weakness and No other Exam Const General: cooperative, healthy appearing, comfortable and no acute distress [facility] Head: normal to inspection Eyes General: appearance normal, both eyes and all related structures Neck Neck: normal visual inspection Neck mass: No Resp Effort & Inspection: normal respiratory effort Auscultation: clear to auscultation bilaterally Cardio Rate: regular rate Rhythm: regular rhythm GI Inspection: normal to inspection Palpation: soft Musc Cervical Spine: normal cervical lordosis Skin General: no rashes or lesions noted Neuro General: no focal motor deficits and CN's II-XI intact bilaterally Extrem Other: Right forearm AV fistula- good pulse, diminished bruit and thrill Psych Appearance: grossly normal Affect: normal affect Assessment and Plan Assessment and Plan (1) Problem with dialysis access: ?Status:?Acute ?Qualifiers: ?Encounter type:?initial encounter? Qualified Code(s):?T82.898A - Other specified complication of vascular prosthetic devices, implants and grafts, initial encounter ?Plan: Dr. Mcclendon will plan to perform a non-urgent right forearm arteriovenous fistulogram. Procedure details, risks and benefits have been explained. Patient has had the opportunity to ask and have questions answered. Patient verbally understands and agrees with the plan. He will continue on his aspirin for the procedure. Per Dr. Mcclendon's last fistulogram note, if patient were to have another fistulogram, he would consider utilizing a cutting balloon. Patient has a right forearm radiocephalic arteriovenous hemodialysis fistula that I created for him on August 06, 2020. On May 31, 2021 I did a right forearm fistulogram with 6 x 2 Powerflex angioplasty and 6 x 2 conquest angioplasty. There was stenosis of the first 4 to 5 cm of the fistula. The patient is noted to have pacer wires left chest. History and physical otherwise unchanged. Julio Mcclendon M.D., F.A.C.S. 06/07/22 0850 <Electronically signed by Julio Mcclendon MD> Cosigner Signature (if applicable): CC: Dr. Manuel Sandoval MD; Dr. Julio Mcclendon MD~ Signed [facility] Work Phone: Evaluation + Plan note Future Appointments Appointment Date:09/11/2023 09:00:00 AM Scheduled Provider:ROSINA BLOOM Location:[facility] Appointment Type: OV [facility] Evaluation + Plan note Future Appointments Appointment Date:02/07/2024 10:30:00 AM Scheduled Provider: Location:[facility] Appointment Type:MEDS - Diabetic Individual Visit Appointment Date:06/17/2024 09:00:00 AM Scheduled Provider:ROSINA BLOOM Location:[facility] Appointment Type: OV Future Scheduled Tests Laboratory* Albumin/Creatinine Ratio, Random Urine 11/15/23 [facility] Evaluation + Plan note Future Appointments Appointment Date:02/28/2024 01:00:00 PM Scheduled Provider: Location:[facility] Appointment Type:MEDS - Diabetic Individual Visit Appointment Date:06/17/2024 09:00:00 AM Scheduled Provider:ROSINA BLOOM Location:[facility] Appointment Type: OV Future Scheduled Tests Laboratory* Albumin/Creatinine Ratio, Random Urine 11/15/23 [facility] Evaluation + Plan note Future Appointments Appointment Date:12/31/2024 04:00:00 PM Scheduled Provider:ROSINA BLOOM Location:[facility] Appointment Type:PC [facility]ness Medicare Appointment Date:04/07/2025 08:30:00 AM Scheduled Provider: Location:[facility] Appointment Type:MEDS - Diabetic Individual Visit [facility] Evaluation + Plan note Future Appointments Appointment Date:04/07/2025 08:30:00 AM Scheduled Provider: Location:[facility] Appointment Type:MEDS - Diabetic Individual Visit Appointment Date:01/05/2026 09:00:00 AM Scheduled Provider:ROSINA BLOOM Location:[facility] Appointment Type: Wellness Medicare Future Scheduled Tests Laboratory* Albumin/Creatinine Ratio, Random Urine 12/31/24 [facility] evaluation note* Diagnosis Onset Date Resolution Status Problem with dialysis access acute Chronic systolic congestive heart failure chronic Ischemic cardiomyopathy erisa attorney nicky Presence of cardiac defibrillator 2004 chronic Obesity (BMI 30-39.9) acute Chronic renal failure, stage 5 chronic Pulmonary hypertension chron ic Problem with dialysis access acute 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 Chronic systolic congestive heart failure chronic Essential hypertension chron ic Ischemic cardiomyopathy erisa attorney nicky Presence of cardiac defibrillator 2004 chronic Pure hypercholesterolemia ch ronic Tachycardia acute Ischemic cardiomyopathy erisa attorney nicky Presence of cardiac defibrillator 2004 [facility] Work Phone: Evaluation note* Diagnosis Onset Date Resolution Status Obesity (BMI 30-39.9) acute Chronic systolic congestive heart failure chronic Pulmonary hypertension chron ic Tachycardia acute Chronic systolic congestive heart failure chronic Ischemic cardiomyopathy erisa attorney nicky Presence of cardiac defibrillator 2004 chronic 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 Chronic systolic congestive heart failure chronic Essential hypertension chron ic Ischemic cardiomyopathy erisa attorney nicky Presence of cardiac defibrillator 2004 chronic Pure hypercholesterolemia [facility] Work Phone: Evaluation note* Diagnosis Onset Date Resolution Status 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 Chronic systolic congestive heart failure chronic Essential hypertension chron ic Ischemic cardiomyopathy erisa attorney nicky Presence of cardiac defibrillator 2005 chronic Pure hypercholesterolemia [facility] Chronic systolic congestive heart failure chronic 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 Ischemic cardiomyopathy erisa attorney nicky Problem with dialysis access acute Obesity (BMI 30-39.9) acute Chronic renal failure, stage 5 chronic Chronic systolic congestive heart failure chronic Pulmonary hypertension chron ic [facility] Work Phone: Evaluation note* Diagnosis Onset Date Resolution Status Problem with dialysis access acute Obesity (BMI 30-39.9) acute Chronic renal failure, stage 5 chronic Chronic systolic congestive heart failure chronic Pulmonary hypertension chron ic 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 Chronic systolic congestive heart failure chronic Essential hypertension chron ic Ischemic cardiomyopathy erisa attorney nicky Presence of cardiac defibrillator 2004 chronic Pure hypercholesterolemia [facility] Work Phone: Evaluation note* Diagnosis Onset Date Resolution Status Ischemic cardiomyopathy erisa attorney nicky Presence of cardiac defibrillator 2004 chronic Dyslipidemia acute Tachycardia acute 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 Coronary artery disease erisa attorney nicky End stage renal disease on dialysis chronic Essential hypertension chron ic Ischemic cardiomyopathy erisa attorney nicky custodial current use of amiodarone chronic Presence of cardiac defibrillator 2004 chronic Aortocoronary bypass status February, resolved Obesity (BMI 30-39.9) acute Chronic systolic congestive heart failure chronic Pulmonary hypertension chron ic Problem with dialysis access [facility] Work Phone: Evaluation note* Diagnosis Onset Date Resolution Status Ischemic cardiomyopathy erisa attorney nicky Presence of cardiac defibrillator 2004 chronic Dyslipidemia acute Tachycardia acute 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 Coronary artery disease erisa attorney nicky End stage renal disease on dialysis chronic Essential hypertension chron ic Ischemic cardiomyopathy erisa attorney nicky [employer] current use of amiodarone chronic Presence of cardiac defibrillator 2004 chronic Aortocoronary bypass status February, resolved Obesity (BMI 30-39.9) acute Chronic systolic congestive heart failure chronic Pulmonary hypertension chron ic Problem with dialysis access acute Problem with dialysis access [facility] Work Phone: Evaluation note* Diagnosis Chronic renal failure, stage 5 (HCC)- Primary Pre-transplant evaluation for kidney transplant Other specified pre-operative examination [facility] Pre-transplant evaluation for CKD (chronic kidney disease)- Primary Other specified pre-operative examination [facility] Diagnosis Onset Date Resolution Status End stage renal disease on dialysis chronic Pulmonary hypertension chron ic Dyslipidemia acute End stage renal disease on dialysis chronic Essential hypertension chron ic Ischemic cardiomyopathy erisa attorney nicky [employer] current use of amiodarone chronic Presence of cardiac defibrillator 2004 chronic Aortocoronary bypass status February, resolved [facility] Work Phone: Evaluation note* Diagnosis Coronary artery disease involving klawock coronary artery of [place] heart without angina pectoris- Primary Preop cardiovascular exam Pre-operative cardiovascular examination [facility] Diagnosis Type 2 diabetes mellitus with hyperglycemia, with long-term current use of insulin (HCC)- Primary ESRD (end stage renal disease) on dialysis (HCC) End stage renal disease Type 2 diabetes mellitus with hyperlipidemia (HCC) (HCC) Hypertension associated with type 2 diabetes mellitus (HCC) (HCC) Class 2 severe obesity with serious comorbidity and body mass index (BMI) of 36.0 to 36.9 in adult, unspecified obesity type (HCC) Type 2 diabetes mellitus with diabetic polyneuropathy, with long-term current use of insulin ([facility]) [facility] Diagnosis Pre-operative cardiovascular examination Pre-transplant evaluation for end stage renal disease Other specified pre-operative examination Encounter for screening for cardiovascular disorders Screening for other and unspecified cardiovascular conditions documented in this encounter [facility] note* Diagnosis Pre-operative cardiovascular examination Pre-transplant evaluation for end stage renal disease Other specified pre-operative examination Encounter for screening for cardiovascular disorders Screening for other and unspecified cardiovascular conditions documented in this encounter [facility] note* Diagnosis ESRD (end stage renal disease) (Multi)- Primary End stage renal disease documented in this encounter [facility] Work Phone: Evaluation note* Diagnosis Encounter for screening colonoscopy- Primary Special screening for malignant neoplasms, colon documented in this encounter [facility] note* Diagnosis Onset Date Resolution Status Admit Date Coronary artery disease chronic S eptember 2024 10:21am Dyslipidemia chronic January 10:21am End stage renal disease on dialysis chronic January 08 025 10:21am Essential hypertension chronic Se ptember 2024 10:21am Ischemic cardiomyopathy chronic S eptember 2024 10:21am Presence of cardiac defibrillator 2005 chronic January 08, 2 025 10:21am Aortocoronary bypass status February, resol [place] January 08, 2025 10:21am [facility] Work Phone: Hospital course Narrative No data available for this section [facility] Discharge instructions No data available for this section [facility] Progress note No data available for this section [facility] Reason for referral (narrative)* Diagnostic Procedure Only (Urgent) - Closed Specialty Diagnoses / Procedures Referred By Fady hines Referred To Contact [facility] Diagnoses Pre-operative cardiovascular examination Pre-transplant evaluation for end stage renal disease Encounter for screening for cardiovascular disorders Procedures NM CARDIAC PERF STRESS/PHARM MYOCARDIAL SPECT MULTIPLE STUDIES Denise Albright MD [address] [place] [address] [facility] [address] [place] [address] Referral ID Status Reason Start Date Expiration Date V isits Requested Visits Authorized [id number] Closed Auto-Generate d Referral 03/18/2024 04/10/2025 1 1 [facility] for referral (narrative)* Outpatient Procedure (Urgent) - Closed Specialty Diagnoses / Procedures Referred By Fady hines Referred To Contact [facility] Diagnoses Pre-operative cardiovascular examination Pre-transplant evaluation for end stage renal disease Encounter for screening for cardiovascular disorders Procedures ECHO ECHO TTHRC R-T 2D W/WOM-MODE COMPL SPEC&COLR D Denise Albright MD [address] [id number] [facility] [place] [address] [place] [id number] Referral ID Status Reason Start Date Expiration Date V isits Requested Visits Authorized [id number] Closed Auto-Generate d Referral 03/18/2024 03/11/2025 [address] [facility] for referral (narrative)No reason for referral [facility] Diagnostic Procedure Only (Urgent) - Closed Specialty Diagnoses / Procedures Referred By Fady hines Referred To Contact [facility]LECULAR [facility] FUNCTIONAL IMAGING Diagnoses Pre-operative cardiovascular examination Pre-transplant evaluation for end stage renal disease Encounter for screening for cardiovascular disorders Procedures NM CARDIAC PERF STRESS/PHARM MYOCARDIAL SPECT MULTIPLE STUDIES Denise Albright MD [address] [place] [address] Molecular [facility] Functional Imaging [address] [place] [address] Referral ID Status Reason Start Date Expiration Date V isits Requested Visits Authorized [id number] Closed Auto-Generate d Referral 03/18/2024 04/10/2025 [address] [facility] for visit Narrative* Outpatient Procedure (Urgent) - Closed Specialty Diagnoses / Procedures Referred By Fady hines Referred To Contact [facility] Diagnoses Pre-operative cardiovascular examination Pre-transplant evaluation for end stage renal disease Encounter for screening for cardiovascular disorders Procedures ECHO ECHO TTHRC R-T 2D W/WOM-MODE COMPL SPEC&COLR D Denise Albright MD [address] [place] [address] [facility] [place] [address] [place] [address] Referral ID Status Reason Start Date Expiration Date V isits Requested Visits Authorized [id number] Closed Auto-Generate d Referral 03/18/2024 03/11/2025 1 1 [facility] QUYNH Rivera: PERFORM Event Display: Patient Summary Documents Authored Date: [id number] [facility] Chief Complaint and Reason for Visit Chief Complaint FISTULAGRAM 3 mos remote ICD f/u 6 M FU DIALYSIS ACCESS DIALYSIS ACCESS annual in-clinic f/u Sees ZAK @ 10:30 Reason for Visit Problem with dialysi s access Chronic systolic congestive heart failure Ischemic cardiomyopathy Presence of cardiac defibrillator Obesity (BMI 30-39.9) Chronic renal failure, stage 5 Pulmonary hypertension Problem with dialysis access Atherosclerosis of coronary artery bypass graft without angina pectoris Chronic systolic congestive heart failure Essential hypertension Ischemic cardiomyopathy Presence of cardiac defibrillator Pure hypercholesterolemia Tachycardia Ischemic cardiomyopathy Presence of cardiac defibrillator Chief Complaint 6 M FU 3 mos remote ICD f/u 6 M FU HIGH RISK MEDS Reason for Visit Obesity (BMI 30-39.9 ) Chronic systolic congestive heart failure Pulmonary hypertension Tachycardia Chronic systolic congestive heart failure Ischemic cardiomyopathy Presence of cardiac defibrillator Atherosclerosis of coronary artery bypass graft without angina pectoris Chronic systolic congestive heart failure Essential hypertension Ischemic cardiomyopathy Presence of cardiac defibrillator Pure hypercholesterolemia Chief Complaint 6 M FU HIGH RISK MEDS 3 mos remote ICD f/u FISTULAGRAM HYPERTENSION HYPERTENSION 6 M FU PROBLEM W DIALYSIS ACCESS PROBLEM W DIALYSIS ACCESS Reason for Visit Atherosclerosis of c oronary artery bypass graft without angina pectoris Chronic systolic congestive heart failure Essential hypertension Ischemic cardiomyopathy Presence of cardiac defibrillator Pure hypercholesterolemia Chronic systolic congestive heart failure Congestive heart failure due to cardiomyopathy Ischemic cardiomyopathy Problem with dialysis access Obesity (BMI 30-39.9) Chronic renal failure, stage 5 Chronic systolic congestive heart failure Pulmonary hypertension Chief Complaint FISTULAGRAM HYPERTENSION HYPERTENSION 6 M FU PROBLEM W DIALYSIS ACCESS PROBLEM W DIALYSIS ACCESS 4 M FU E ORDERS Reason for Visit Problem with dialysi s access Obesity (BMI 30-39.9) Chronic renal failure, stage 5 Chronic systolic congestive heart failure Pulmonary hypertension Atherosclerosis of coronary artery bypass graft without angina pectoris Chronic systolic congestive heart failure Essential hypertension Ischemic cardiomyopathy Presence of cardiac defibrillator Pure hypercholesterolemia Chief Complaint Amb Documentation IN PERSON DEVICE CHECK / AR 9:45 1 Y FU (PFM) / 9am w KELSY 6 M FU BLEEDING AT ACCESS SITE PNEUMONIA Reason for Visit Ischemic cardiomyopa thy Presence of cardiac defibrillator Dyslipidemia Tachycardia Atherosclerosis of coronary artery bypass graft without angina pectoris Coronary artery disease End stage renal disease on dialysis Essential hypertension Ischemic cardiomyopathy [employer] current use of amiodarone Presence of cardiac defibrillator Aortocoronary bypass status Obesity (BMI 30-39.9) Chronic systolic congestive heart failure Pulmonary hypertension Problem with dialysis access Chief Complaint Amb Documentation IN PERSON DEVICE CHECK / AR 9:45 1 Y FU (PFM) / 9am w KELSY 6 M FU BLEEDING AT ACCESS SITE PNEUMONIA T82.898A Other specified complication of vascular T82.898A Other specified complication of vascular Reason for Visit Ischemic cardiomyopa thy Presence of cardiac defibrillator Dyslipidemia Tachycardia Atherosclerosis of coronary artery bypass graft without angina pectoris Coronary artery disease End stage renal disease on dialysis Essential hypertension Ischemic cardiomyopathy [employer] current use of amiodarone Presence of cardiac defibrillator Aortocoronary bypass status Obesity (BMI 30-39.9) Chronic systolic congestive heart failure Pulmonary hypertension Problem with dialysis access Problem with dialysis access Chief Complaint 6 M FU 6 M FU SOFTWARE PROGRAMMER DRUG THERAPY Reason for Visit End stage renal dise ase on dialysis Pulmonary hypertension Dyslipidemia End stage renal disease on dialysis Essential hypertension Ischemic cardiomyopathy custodial current use of amiodarone Presence of cardiac defibrillator Aortocoronary bypass status Chief Complaint 6 M FU 6 M FU SOFTWARE PROGRAMMER DRUG THERAPY CAD/ASHD Amb Documentation Reason for Visit End stage renal dise ase on dialysis Pulmonary hypertension Dyslipidemia End stage renal disease on dialysis Essential hypertension Ischemic cardiomyopathy [employer] current use of amiodarone Presence of cardiac defibrillator Aortocoronary bypass status Chief Complaint Admit Date Pacer Check Remote August 20, 2024 4:3 2am 3 M FU September 02, 2024 10: 09am Pacer Check Remote November 19, 2024 4:31 am Reason for Visit Admit Date End stage renal disease on dialysis Apri l 2024 10:09am Obesity (BMI 30-39.9) September 02, 2024 1 0:09am Pulmonary hypertension September 02, 2024 10:09am Sleep apnea September 02, 2024 10: 09am Chief Complaint Admit Date Pacer Check Remote November 19, 2024 4:31 am 6 M FU January 08, 2025 10:21am Reason for Visit Admit Date Coronary artery disease January 08 10:21am Dyslipidemia January 08, 2025 10:21am End stage renal disease on dialysis Jan emb2024 10:21am Essential hypertension January 08 10:21am Ischemic cardiomyopathy January 08 10:21am Presence of cardiac defibrillator 2024 10:21am Aortocoronary bypass status January 10:21am Advance Directives No Advanced Directives Records Found Advance Directive Response Recorded Date/ Time Advance Directives Yes May 31, 2021 10:33am Living Will Yes May 31 10:33am Power of Meteorology Teacher Yes May 31, 2021 10:33am Advance Directive Response Recorded Date/ Time Advance Directives No June 07, 2022 8:32am Living Will No June 07 8:32am Power of Meteorology Teacher No June 07, 2022 8:32am Advance Directive Response Recorded Date/ Time Advance Directives No June 07, 2022 9:32am Living Will No June 07 9:32am Power of Meteorology Teacher No June 07, 2022 9:32am Advance Directive Response Recorded Date/ Time Advance Directives on File No 2022 11:18am Name of Medical Power of Meteorology Teacher a friend, unable to spell his name. January 11, 2023 11:18am Advance Directives Yes January 11:18am Living Will Yes January 11 11:18am Power of Meteorology Teacher Yes January 11, 2023 11:18am Advance Directive Response Recorded Date/ Time Advance Directives Yes January 10:18am Living Will Yes January 11 10:18am Power of Meteorology Teacher Yes January 11, 2023 10:18am Advance Directive Response Recorded Date/ Time Advance Directives Yes January 11:18am Living Will Yes January 11 11:18am Power of Meteorology Teacher Yes January 11, 2023 11:18am Advance Directive Response Recorded Date/ Time Advance Directives Yes January 11:18am Reason for Referral Specialty Diagnoses / Procedures Referred By Fady hines Referred To Contact CT IMAGING Diagnoses Chronic renal failure, stage 5 (HCC) Pre-transplant evaluation for kidney transplant Procedures CT ABD/PEL WO IVCON CT ABD & PELVIS W/O CONTRAST Rivka Dominguez PA-C [address] [place] [address] [facility] [place] [address] Referral ID Status Reason Start Date Expiration Date Visits Requested Visits Authorized [id number] Pending Review Auto-Generat ed Referral 3 03/07/2024 1 1 Specialty Diagnoses / Procedures Referred By Fady hines Referred To Contact [facility] Diagnoses Coronary artery disease involving klawock coronary artery of [place] heart without angina pectoris Preop cardiovascular exam Procedures CARDIOVASCULAR MEDICINE OP FOLLOW UP APPT ORDER Andrea Gillis MD [address] [place] [address] [facility] [place] [address] [place] [address] Referral ID Status Reason Start Date Expiration Date Visits Requested Visits Authorized [id number] Ref Not Required PCP Requested Referral 08/30/2023 08/29/2024 1 1 Summary Purpose Family History No Family History Records Found Additional Source Comments Goals (unrecognized section and content) Goals may be documented in a n alternate sectionGoals may be documented in an alternate sectionGoals may be documented in an alternate sectionGoals may be documented in an alternate sectionGoals may be documented in an alternate sectionGoals may be documented in an alternate section No data available for this sectionGoals may be documented in an alternate sectionGoals may be documented in an alternate section No data available for this section No data available for this sectionGoals may be documented in an alternate section No data available for this sectionGoals may be documented in an alternate section No data available for this section Care Teams (unrecognized sec tion and content) Team Status: Active Member Role Status Dates Dr. Manuel Sandoval MD Family Provider Active Dr. Manuel Sandoval MD Primary Care Provider Active Team Status: Inactive Member Role Status Dates Dr. Manuel Sandoval MD Primary Care Provider, Referring P rovider Active Zak Weinstein ACADEMIC ASSISTANT, ACADEMIC ASSISTANT-C Attending Provider Active Team Status: Inactive Member Role Status Dates Dr. Manuel Sandoval MD Primary Care Provider, Referring P rovider Active Riya Connolly ACADEMIC ASSISTANT, ACADEMIC ASSISTANT-C Attending Provider Active Team Status: Inactive Member Role Status Dates Dr. Manuel Sandoval MD Primary Care Provider Active Hannah Taylor Active Dr. Angel Lucas MD Attending Provider, Referring Provider Active Team Status: Inactive Member Role Status Dates Dr. Manuel Sandoval MD Primary Care Provider, Referring P rovider Active Anna Birmingham PA, PA-C Attending Provider Active Team Status: Active Member Role Status Dates Dr. Manuel Sandoval MD Primary Care Provider Active Dr. Carter Melendez MD Referring Provider, Other Provid er Active Dr. Carlos Sharma DO Attending Provider Active Team Status: Active Member Role Status Dates Dr. Manuel Sandoval MD Primary Care Provider Active Dr. Julio Mcclendon MD Attending Provid er, Referring Provider, Other Provider Active Team Status: Active Member Role Status Dates Dr. Manuel Sandoval MD Primary Care Provider Active Dr. Carter Melendez MD Attending Provider, Referring Pr ovider Active Team Status: Inactive Member Role Status Dates Dr. Manuel Sandoval MD Primary Care Provider Active Zak Weinstein ACADEMIC ASSISTANT, ACADEMIC ASSISTANT-C Attending Provider, Referring P rovider Active Team Status: Inactive Member Role Status Dates Dr. Manuel Snadoval MD Primary Care Provider Active Dr. Julio Mcclendon MD Attending Provider, Referring Provider Active Team Status: Inactive Member Role Status Dates Dr. Manuel Sandoval MD Primary Care Provider Active Dr. Carter Melendez MD Attending Provider, Referring Pr ovider Active Team Status: Inactive Member Role Status Dates Dr. Manuel Sandoval MD Primary Care Provider, Referring P rovider Active Dr. Carter Melendez MD Attending Provider Active Team Status: Active Member Role Status Dates Dr. Manuel Sandoval MD Primary Care Provider Active Rebecca Juan Attending Provider Active Team Status: Inactive Member Role Status Dates Dr. Manuel Sandoval MD Primary Care Provider, Referring P rovider Active Hannah Taylor Attending Provider Active Team Status: Inactive Member Role Status Dates Dr. Manuel Sandoval MD Primary Care Provider, Referring P rovider Active Dr. Muriel Pearson MD Attending Provider Active Team Status: Inactive Member Role Status Dates Dr. Manuel Sandoval MD Primary Care Provider, Referring P rovider Active Dr. Julio Mcclendon MD Attending Provider Active Team Status: Inactive Member Role Status Dates Dr. Manuel Sandoval MD Primary Care Provider Active Dr. Muriel Pearson MD Attending Provider, Referring Pr ovider Active Team Status: Inactive Member Role Status Dates Dr. Manuel Sandoval MD Primary Care Provider, Attending P rovider Active Team Status: Inactive Member Role Status Dates Dr. Manuel Sandoval MD Primary Care Provider Active Zak Weinstein ACADEMIC ASSISTANT, ACADEMIC ASSISTANT-C Attending Provider Active Team Status: Active Member Role Status Dates Dr. Manuel Sandoval MD Primary Care Provider Active Dr. Biju Champion MD Attending Provider Active Team Status: Active Member Role Status Dates Dr. Manuel Sandoval MD Primary Care Provider Active Zak Weinstein ACADEMIC ASSISTANT, ACADEMIC ASSISTANT-C Attending Provider Active Law Enforcement Officer Relationship Specialty Start Date End Date Andrea Gillis MD [address] [place] [address] Primary Staff Physician Cardiology 08/30/23 Law Enforcement Officer Relationship Specialty Start Date End Date Andrea Gillis MD [address] [place] [address] Primary Staff Physician Cardiology 08/30/23 Law Enforcement Officer Relationship Specialty Start Date End Date Andrea Gillis MD [address] [place], [place] [id number] Primary Staff Physician Cardiology 08/30/23 Law Enforcement Officer Relationship Specialty Start Date End Date Andrea Gillis MD [address] [place], [place] [id number] Primary Staff Physician Cardiology 08/30/23 Law Enforcement Officer Relationship Specialty Start Date End Date Andrea Gillis MD [address] [place] [address] Primary Staff Physician Cardiology 08/30/23 Team Status: Active Member Role/Relationship Status Dates ROSINA MAST , [employer] Family Provider Active ROSINA MAST , [employer] Primary Care Provider Active Team Status: Inactive Member Role/Relationship Status Dates ROSINA MAST , [employer] Primary Care Provider Active Start: August 20, 2024 End: August 20, 2024 Dr. Biju Champion MD Attending Provider Active S tart: August 20, 2024 End: August 20, 2024 Dr. Biju Champion MD Referring Provider Active S tart: August 20, 2024 End: August 20, 2024 Team Status: Inactive Member Role/Relationship Status Dates ROSINA MAST , [employer] Primary Care Provider Active Start: September 02, 2024 End: September 02, 2024 ROSINA MAST , [employer] Referring Provider Active Sta rt: September 02, 2024 End: September 02, 2024 Riya Connolly ACADEMIC ASSISTANT, ACADEMIC ASSISTANT-C Attending Provider Active Start: September 02, 2024 End: September 02, 2024 Team Status: Inactive Member Role/Relationship Status Dates ROSINA MAST , [employer] Primary Care Provider Active Start: November 19, 2024 End: November 19, 2024 Dr. Biju Champion MD Attending Provider Active S tart: November 19, 2024 End: November 19, 2024 Law Enforcement Officer Relationship Specialty Start Date End Date Andrea Gillis MD [address] [place] [address] Primary Staff Physician Cardiology 08/30/23 Maureen Aragon CNP [address] [place] [id number] Referring Family Medicine 12/08/24 Team Status: Inactive Member Role/Relationship Status Dates DUY ODELL Primary Care Provider Active Start: November 19, 2024 End: November 19, 2024 Dr. Biju Champion MD Attending Provider Active S tart: November 19, 2024 End: November 19, 2024 Dr. Biju Champion MD Referring Provider Active S tart: November 19, 2024 End: November 19, 2024 Team Status: Inactive Member Role/Relationship Status Dates DUY ODELL Primary Care Provider Active Start: January 08, 2025 End: January 08, 2025 DUY ODELL Referring Provider Active Sta rt: January 08, 2025 End: January 08, 2025 Dr. Muriel Pearson MD Attending Provider Active Start: January 08, 2025 End: January 08, 2025 Source Comments (unrecognize d section and content) In the event this informatio n is protected by the Federal Confidentiality of Alcohol and Drug Abuse Patient Records regulations: The Federal rules restrict any use of the information to criminally investigate or prosecute any alcohol or drug abuse patient.[facility] HospitalIn the event this information is protected by the Federal Confidentiality of Alcohol and Drug Abuse Patient Records regulations: The Federal rules restrict any use of the information to criminally investigate or prosecute any alcohol or drug abuse patient.[facility] HospitalIn the event this information is protected by the Federal Confidentiality of Alcohol and Drug Abuse Patient Records regulations: The Federal rules restrict any use of the information to criminally investigate or prosecute any alcohol or drug abuse patient.[facility] HospitalIn the event this information is protected by the Federal Confidentiality of Alcohol and Drug Abuse Patient Records regulations: The Federal rules restrict any use of the information to criminally investigate or prosecute any alcohol or drug abuse patient.[facility] HospitalIn the event this information is protected by the Federal Confidentiality of Alcohol and Drug Abuse Patient Records regulations: The Federal rules restrict any use of the information to criminally investigate or prosecute any alcohol or drug abuse patient.[facility] HospitalIn the event this information is protected by the Federal Confidentiality of Alcohol and Drug Abuse Patient Records regulations: The Federal rules restrict any use of the information to criminally investigate or prosecute any alcohol or drug abuse patient.[facility] HospitalIn the event this information is protected by the Federal Confidentiality of Alcohol and Drug Abuse Patient Records regulations: The Federal rules restrict any use of the information to criminally investigate or prosecute any alcohol or drug abuse patient.[facility] HospitalIn the event this information is protected by the Federal Confidentiality of Alcohol and Drug Abuse Patient Records regulations: The Federal rules restrict any use of the information to criminally investigate or prosecute any alcohol or drug abuse patient.[facility] HospitalIn the event this information is protected by the Federal Confidentiality of Alcohol and Drug Abuse Patient Records regulations: The Federal rules restrict any use of the information to criminally investigate or prosecute any alcohol or drug abuse patient.[facility] HospitalIn the event this information is protected by the Federal Confidentiality of Alcohol and Drug Abuse Patient Records regulations: The Federal rules restrict any use of the information to criminally investigate or prosecute any alcohol or drug abuse patient.[facility] HospitalIn the event this information is protected by the Federal Confidentiality of Alcohol and Drug Abuse Patient Records regulations: The Federal rules restrict any use of the information to criminally investigate or prosecute any alcohol or drug abuse patient.[facility] HospitalIn the event this information is protected by the Federal Confidentiality of Alcohol and Drug Abuse Patient Records regulations: The Federal rules restrict any use of the information to criminally investigate or prosecute any alcohol or drug abuse patient.[facility] HospitalIn the event this information is protected by the Federal Confidentiality of Alcohol and Drug Abuse Patient Records regulations: The Federal rules restrict any use of the information to criminally investigate or prosecute any alcohol or drug abuse patient.[facility] HospitalIn the event this information is protected by the Federal Confidentiality of Alcohol and Drug Abuse Patient Records regulations: The Federal rules restrict any use of the information to criminally investigate or prosecute any alcohol or drug abuse patient.[facility] Reason for Visit (unrecogniz ed section and content) Reason Comments Referral - Kidney Txp Reason Comments Returning Patient's Call Reason Comments Appointment Sent Appt schedule t o the Patient by Mail today. Reason Comments Informed Consent Reason Comments Follow Up Referral - Kidney Txp Specialty Diagnoses / Procedures Referred By Contact Referred To Contact Cardiology / CARDIOVASCULAR MEDICINE Diagnoses Encounter for pre-transplant evaluation for kidney transplant Procedures CONSULT TO CARDIOLOGY OFFICE/OUTPATIENT NEW HIGH MDM 60-74 MINUTES Denise Albright MD [address] [place] [address] Card Clinical Main [address] [phone] Referral ID Status Reason Start Date Expiration Date V isits Requested Visits Authorized [id number] Closed PCP Requested Referral 04/24/2023 04/23/2024 1 1 Reason Comments Follow-up Specialty Diagnoses / Procedures Referred By Contac t Referred To Contact Endocrinology Diagnoses Type 2 diabetes mellitus with diabetic chronic kidney disease (HCC) Procedures [place] OFFICE/OUTPATIENT NEW MODERATE MDM 45 MINUTES Rosina Bloom [address] [place] [address] Phone: tel: fax: [facility] Endocrinology - [place] [address] [place] [address] Phone: tel: fax: Referral ID Status Reason Start Date Expiration Date V isits Requested Visits Authorized [id number] Pending Review 08/16/2023 08/15/2024 1 1 Reason Comments Reminder Call Reason Comments Follow Up (unrecognized sect ion and content) No Status Records FoundNo Status Records FoundNo Status Records FoundNo Status Records FoundNo Status Records FoundNo Status Records Found INFORMATION SOURCE (unrecogn ized section and content) DATE CREATED AUTHOR 12/15/2023 [facility] ([place]) DATE CREATED AUTHOR AUTHOR'S ORGANIZ ATION 03/01/2024 [facility] DATE CREATED AUTHOR AUTHOR'S ORGANIZ ATION 11/29/2024 [facility] DATE CREATED AUTHOR AUTHOR'S ORGANIZ ATION 12/13/2024 [facility] DATE CREATED AUTHOR AUTHOR'S ORGANIZ ATION 01/15/2025 [facility] DATE CREATED AUTHOR AUTHOR'S ORGANIZ ATION 02/17/2025 [facility] FOR RECORDS PERTAINING TO PATIENTS WHO ARE OR HAVE BEEN ENROLLED IN A CHEMICAL DEPENDENCY/SUBSTANCEABUSE PROGRAM, SOME INFORMATION MAY BE OMITTED. This clinical summary was aggregated from multiple sources. Caution should be exercised in using it in the provision of clinical care. This summary normalizes information from multiple sources, and as a consequence, information in this document may materially change the coding, format and clinical context of patient data. In addition, data may be omitted in some cases. CLINICAL DECISIONS SHOULD BE BASED ON THE PRIMARY CLINICAL RECORDS. [employer] provides no warranty or guarantee of the accuracy or completeness of information in this document.
--- NOTE | 2025-02-19 12:05 | STRESSREP_ITS ---
Stress Test Report Date: 02/19/2025 Procedure: Pharmacologic stress nuclear imaging study Indications: Coronary artery disease Consent: Per the patient Procedure: The patient underwent pharmacologic (Regadenoson 0.4mg ) evaluation with a peak heart rate of 94 beats per minute (61%predicted maximal heart rate) and a peak blood pressure of 124/62 mmHg. The baseline ECG demonstrated sinus rhythm with nonspecific ST changes. The peak pharmacologic ECG was nondiagnostic. Occasional PVCs noted. There was no complaint of chest discomfort during pharmacologic infusion or recovery. The patient was injected with 13.3 millicuries of technetium 99m Cardiolite and subsequently rest SPECT Cardiolite nuclear imaging was obtained in the horizontal long, vertical long, and short axis views. The patient underwent pharmacologic (Regadenoson) evaluation. The patient was injected with 40.2 millicuries of technetium 99m Cardiolite and subsequently stress SPECT Cardiolite nuclear imaging was obtained in the horizontal long, vertical long, and short axis views. A gated Cardiolite study at peak stress was obtained. The examination was stopped secondary to completion of protocol. Rest and stress SPECT Cardiolite nuclear imaging status post realignment, normalization, and attenuation correction demonstrate fixed basal inferior defect suggestive of prior SD. There is also fixed perfusion defect of the basal lateral wall. Apical hypoperfusion at rest which extends into the distal anterior wall post pharmacological stress, suggestive of distal anterior and apical ischemia. The gated images show LV dilatation. Generalized LV hypokinesis. The reported LVEF is 36%. Impression: 1. Pharmacologic (Regadenoson) evaluation 2. Peak pharmacologic ECG with no diagnostic changes secondary to baseline abnormality. 3. Occasional PVCs. 5. Basal inferior and lateral infarct. Distal anterior and apical reversible ischemia. 6. The gated Cardiolite study reports an LVEF of 36%. This note was generated with [employer] software. It may contain incorrect words, spelling, and punctuation that were not noted in checking the note before signing.
== END | disposition home or self-care (01) ==
LOC: CVS 06:55
PROVIDERS: PCP Nurse Practitioner Adult Health; Referring Provider Internal Medicine Cardiovascular Disease; Visit Provider Internal Medicine Cardiovascular Disease
DX: I25.10 Atherosclerotic heart disease of native coronary artery without angina pectoris (principal)
CPT/HCPCS: 78452; 93017; 93306; A9500; A4216; J2785

== ENCOUNTER 2025-03-10 06:02 | Day surgery (SDC) | payer MEDICARE, MEDICAID, SELFPAY ==
--- NOTE | 2025-03-05 08:44 | RAD_ITS ---
PROCEDURE: RAD/Chest PA and Lateral
[2025-03-05 09:25] LABS: Hematocrit 41.2 % (40-54); Hemoglobin 13.4 g/dL (13.0-16.5); Immature Granulocytes Count 0.130 X10^3/uL (0.0-0.0); Mean Corp Hgb Conc 32.5 g/dL (32-36); Mean Corpuscular Volume 88.4 fL (80-94); Mean Platelet Vol. 11.3 fl (6.2-12.0); NRBC Flagged by Analyzer 0 % (0-5); Platelet Count 183 K/mm3 (150-450); RBC Distribution Width CV 12.5 % (11.6-14.6); RBC Distribution Width SD 40.4 fl (35.1-43.9); Red Blood Count 4.66 M/mm3 (4.6-6.2); White Blood Count 8.2 K/mm3 (4.4-11.0)
[2025-03-05 09:29] LABS: Prothrombin Time (Protime)PT. 13.9 SECONDS (11.7-14.9)
[2025-03-05 09:50] LABS: Anion Gap 12 (5-15); BUN 29 mg/dL (4-19); BUN/Creat Ratio 5.6 RATIO (10-20); Calcium,Total 9.4 mg/dL (7.6-11.0); Carbon Dioxide 31.0 mmol/L (21.0-32.0); Chloride 94 mmol/L (98-108); Glucose 120 mg/dL (70-99); Potassium 4.7 mmol/L (3.3-5.1)
[2025-03-09 10:22] VITALS: BMI 35.5
== END 2025-03-10 11:15 | disposition home or self-care (01) ==
PROVIDERS: Student in an Organized Health Care Education/Training Program; PCP Nurse Practitioner Adult Health; Referring Provider Internal Medicine Cardiovascular Disease; Visit Provider Internal Medicine Cardiovascular Disease
DX: I25.10 Atherosclerotic heart disease of native coronary artery without angina pectoris (principal); I13.2 Hypertensive heart and chronic kidney disease with heart failure and with stage 5 chronic kidney disease, or end stage renal disease; N18.6 End stage renal disease; I50.22 Chronic systolic (congestive) heart failure; E11.22 Type 2 diabetes mellitus with diabetic chronic kidney disease; E78.00 Pure hypercholesterolemia, unspecified; Z95.810 Presence of automatic (implantable) cardiac defibrillator; Z95.1 Presence of aortocoronary bypass graft; Z99.2 Dependence on renal dialysis; Z87.891 Personal history of nicotine dependence
CPT/HCPCS: 36415; 71046; 80048; 85025; 85610; 93459; 99152; 99153; C1894; Q9967; C1769